=== PATIENT | male | born 1955 | race Hispanic/Latino ===

== ENCOUNTER 2018-05-19 18:56 | Emergency (ER) | payer SELFPAY ==
[2018-05-19] MEDS ORDERED: CEFTRIAXONE/SWI 1gm 1 GM/10 ML SYR ONE (20:12)
[2018-05-19] MEDS ORDERED: AZITHROMYCIN 250 MG TAB ONE (20:12)
[2018-05-19 20:20] LABS: Absolute Lymphocytes (CBC) 0.7 K/uL (0.7-4.9); Absolute Monocytes 1.1 K/uL (0.1-1.3); Basophils % 0.3 % (0-1.3); Eosinophils % 0.1 % (0-4.4); Hematocrit 23.6 % (39.6-49.0); Lymphocytes % 6.1 % (15.3-44.8); MPV 8.8 fL (7.6-11.3); RBC Red Blood Cell Count 3.89 M/uL (4.33-5.43)
[2018-05-19 20:30] LABS: Potassium 5.2 mmol/L (3.5-5.1)
--- NOTE | 2018-05-19 20:38 | RAD REPORT ---
EXAM DESCRIPTION: RAD - Chest Single View - 05/19/2018 8:33 pm CLINICAL HISTORY: COUGH Chest pain. COMPARISON: Chest Pa And Lat (2 Views) dated 04/20/2017; Chest Single View dated 04/18/2017; Chest Sing le View dated 04/17/2017; Chest Single View dated 04/16/2017 FINDINGS: Portable technique limits examination quality. Moderate airspace opacity is present in the right upper lobe compatible with pneumonia. The heart is normal in size. No displaced fractures. IMPRESSION: Moderate right upper lobe pneumonia.
--- NOTE | 2018-05-19 21:14 | EDPHYS ---
Physician Documentation [facility] Name: Mc Willingham Age: 63 yrs Sex: Male : 1955 Arrival Date: 05/19/2018 Time: 18:57 Bed 28 Private MD: ED Physician Lito Hutchison HPI: 05/19 20:04 This 63 yrs old Male presents to ER via Ambulatory with complaints of Cough, ma2 Congestion, Back Pain. 20:04 Onset: The symptoms/episode began/occurred gradually, 3 day(s) ago. Severity of ma2 symptoms: At their worst the symptoms were mild, in the emergency department the symptoms are unchanged. Associated signs and symptoms: Pertinent positives: rhinorrhea, Pertinent negatives: fever, rhinorrhea. The patient has experienced similar episodes in the past. Historical: - Allergies: 19:09 No Known Allergies; jd3 - Home Meds: 19:09 Humalog Pen Sub-Q [Active]; insulin glargine subcutaneous Sub-Q [Active]; gabapentin jd3 300 mg oral cap 1 cap [Active]; metformin 1,000 mg Oral tab 1 tab 2 times per day [Active]; oxybutynin chloride 5 mg Oral tr24 1 tab twice a day [Active]; 20:15 insulin unknown amount/brand [Active]; mg2 - PMHx: 19:09 Diabetes - IDDM; Hypertension; jd3 - PSHx: 19:09 left elbow; jd3 - Immunization history:: Adult Immunizations unknown. - Social history:: Smoking status: Patient/guardian denies using tobacco, but has a distant history of tobacco abuse, Patient/guardian denies using alcohol, street drugs, The patient lives with family. - Ebola Screening: : Patient negative for fever greater than or equal to 101.5 degrees Fahrenheit, and additional compatible Ebola Virus Disease symptoms. - Family history:: not pertinent. ROS: 20:04 Constitutional: Negative for fever, chills, and weight loss. ma2 20:04 Respiratory: Positive for cough, Negative for dyspnea on exertion, orthopnea, pleurisy, sputum production. 20:04 All other systems are negative. Exam: 20:04 Constitutional: This is a well developed, well nourished patient who is awake, alert, ma2 and in no acute distress. Chest/axilla: Normal chest wall appearance and motion. Nontender with no deformity. No lesions are appreciated. Cardiovascular: Regular rate and rhythm with a normal S1 and S2. No gallops, murmurs, or rubs. Normal PMI, no JVD. No pulse deficits. Respiratory: Lungs have equal breath sounds bilaterally, clear to auscultation and percussion. No rales, rhonchi or wheezes noted. No increased work of breathing, no retractions or nasal flaring. Abdomen/GI: Soft, non-tender, with normal bowel sounds. No distension or tympany. No guarding or rebound. No evidence of tenderness throughout. Back: No spinal tenderness. No costovertebral tenderness. Full range of motion. Skin: Warm, dry with normal turgor. Normal color with no rashes, no lesions, and no evidence of cellulitis. MS/ Extremity: Pulses equal, no cyanosis. Neurovascular intact. Full, normal range of motion. Neuro: Awake and alert, GCS 15, oriented to person, place, time, and situation. Cranial nerves II-XII grossly intact. Motor strength 5/5 in all extremities. Sensory grossly intact. Cerebellar exam normal. Normal gait. Vital Signs: 19:09 BP 148 / 74; Pulse 89; Resp 16 S; Temp 99.2(TE); Pulse Ox 98% on R/A; Weight 95.25 kg jd3 (R); Height 5 ft. 7 in. (170.18 cm) (R); Pain 0/10; 21:32 BP 133 / 83; Pulse 88; Resp 18; Temp 99.5; Pulse Ox 95% on R/A; Pain 0/10; mg2 19:09 Body Mass Index 32.89 (95.25 kg, 170.18 cm) jd3 MDM: 19:30 Patient medically screened. ma2 20:04 Differential Diagnosis: Bronchitis Influenza Upper Respiratory Infection Sinusitis. ma2 21:13 Data reviewed: vital signs, nurses notes. Counseling: I had a detailed discussion with ma2 the patient and/or guardian regarding: the historical points, exam findings, and any diagnostic results supporting the discharge/admit diagnosis, the presence of at least one elevated blood pressure reading (>120/80) during this emergency department visit. Response to treatment: the patient's symptoms have markedly improved after treatment. 05/19 19:57 Order name: Basic Metabolic Panel; Complete Time: 20:34 [facility] 05/19 19:57 Order name: CBC with Diff wv2 05/19 19:57 Order name: XRAY Chest (1 view); Complete Time: 21:13 wv2 05/19 20:05 Order name: Influenza Screen (a \T\ B); Complete Time: 21:13 ma2 Administered Medications: 20:16 Drug: AZITHromycin 500 mg Route: PO; mg2 20:59 Follow up: Response: No adverse reaction; Marked relief of symptoms mg2 20:17 Drug: Rocephin 1 grams Route: IV; Rate: calculated rate; Site: left antecubital; mg2 20:59 Follow up: Response: No adverse reaction; IV Status: Completed infusion mg2 Disposition: 05/19/18 21:13 Discharged to Home. Impression: Bronchopneumonia, unspecified organism. - Condition is Stable. - Discharge Instructions: Community-Acquired Pneumonia, Adult, [id number]. - Prescriptions for Lasix 20 mg Oral Tablet - take 1 tablet by ORAL route once daily; 20 tablet. Zithromax Z- Dequan 250 mg Oral Tablet - take 1 tablet by ORAL route as directed for 5 days Day 1 - take two (2) tablets one time. Day 2, 3, 4 , 5 take one (1) tablet once daily.; 6 tablet. - Medication Reconciliation Form, Thank You Letter, Antibiotic Education, Prescription Opioid Use form. - Follow up: Private Physician; When: Tomorrow; Reason: Continuance of care. Signatures: [facility] Lolita Muñoz FNP-C [employer]-Alvin Pierce RN RN jd3 Lito Hutchison MD MD ma2 Neel Rock RN RN mg2 Corrections: (The following items were deleted from the chart) 21:41 21:13 05/19/2018 21:13 Discharged to Home. Impression: Bronchopneumonia, unspecified mg2 organism. Condition is Stable. Prescriptions for Lasix 20 mg Oral Tablet - take 1 tablet by ORAL route once daily; 20 tablet, Zithromax Z-Dequan 250 mg Oral Tablet - take 1 tablet by ORAL route as directed for 5 days Day 1 - take two (2) tablets one time. Day 2, 3, 4 , 5 take one (1) tablet once daily.; 6 tablet. and Forms are Medication Reconciliation Form, Thank You Letter, Antibiotic Education, Prescription Opioid Use. Follow up: Private Physician; When: Tomorrow; Reason: Continuance of care. ma2
--- NOTE | 2018-05-19 21:14 | ER ---
Nurse's Notes [facility] Name: Mc Willingham Age: 63 yrs Sex: Male : 1955 Arrival Date: 05/19/2018 Time: 18:57 Bed 28 Private MD: Diagnosis: Bronchopneumonia, unspecified organism Presentation: 05/19 19:04 Presenting complaint: Child states: "We are pretty sure he has pneumonia. coughing and jd3 labored breathing.". Transition of care: patient was not received from another setting of care. Onset of symptoms was May 19, 2018. Risk Assessment: Do you want to hurt yourself or someone else? Patient reports no desire to harm self or others. Initial Sepsis Screen: Does the patient meet any 2 criteria? No. Patient's initial sepsis screen is negative. Does the patient have a suspected source of infection? No. Patient's initial sepsis screen is negative. Care prior to arrival: None. 19:04 Method Of Arrival: Ambulatory jd3 19:04 Acuity: POPPY 3 jd3 Historical: - Allergies: 19:09 No Known Allergies; jd3 - Home Meds: 19:09 Humalog Pen Sub-Q [Active]; insulin glargine subcutaneous Sub-Q [Active]; gabapentin jd3 300 mg oral cap 1 cap [Active]; metformin 1,000 mg Oral tab 1 tab 2 times per day [Active]; oxybutynin chloride 5 mg Oral tr24 1 tab twice a day [Active]; 20:15 insulin unknown amount/brand [Active]; mg2 - PMHx: 19:09 Diabetes - IDDM; Hypertension; jd3 - PSHx: 19:09 left elbow; jd3 - Immunization history:: Adult Immunizations unknown. - Social history:: Smoking status: Patient/guardian denies using tobacco, but has a distant history of tobacco abuse, Patient/guardian denies using alcohol, street drugs, The patient lives with family. - Ebola Screening: : Patient negative for fever greater than or equal to 101.5 degrees Fahrenheit, and additional compatible Ebola Virus Disease symptoms. - Family history:: not pertinent. Screenin:14 Abuse screen: Denies threats or abuse. Denies injuries from another. Nutritional mg2 screening: No deficits noted. Tuberculosis screening: No symptoms or risk factors identified. Fall Risk IV access (20 points). Assessment: 20:13 General: Appears in no apparent distress. comfortable, Behavior is calm, cooperative. mg2 Pain: Complains of pain in back Pain does not radiate. Pain currently is 2 out of 10 on a pain scale. Quality of pain is described as aching. Neuro: Level of Consciousness is awake, alert, obeys commands, Oriented to person, place, time, situation. Cardiovascular: Capillary refill < 3 seconds Patient's skin is warm and dry. Respiratory: Airway is patent Respiratory effort is even, unlabored, Respiratory pattern is regular, symmetrical, Breath sounds are clear bilaterally. in right upper lobe, left upper lobe, right middle lobe, left lower lobe and right lower lobe. Respiratory: Reports shortness of breath cough that is. GI: No signs and/or symptoms were reported involving the gastrointestinal system. : No signs and/or symptoms were reported regarding the genitourinary system. EENT: No signs and/or symptoms were reported regarding the EENT system. Derm: Skin is intact, is healthy with good turgor, Skin is pink, warm \\T\\ dry. normal. Musculoskeletal: Circulation, motion, and sensation intact. Capillary refill < 3 seconds. Vital Signs: 19:09 BP 148 / 74; Pulse 89; Resp 16 S; Temp 99.2(TE); Pulse Ox 98% on R/A; Weight 95.25 kg jd3 (R); Height 5 ft. 7 in. (170.18 cm) (R); Pain 0/10; 21:32 BP 133 / 83; Pulse 88; Resp 18; Temp 99.5; Pulse Ox 95% on R/A; Pain 0/10; mg2 19:09 Body Mass Index 32.89 (95.25 kg, 170.18 cm) jd3 ED Course: 18:57 Patient arrived in ED. as 19:05 Triage completed. jd3 19:09 Arm band placed on. jd3 19:30 Lito Hutchison MD is Attending Physician. ma2 19:58 Neel Rock, ALISSON is Primary Nurse. mg2 20:14 No provider procedures requiring assistance completed. Inserted saline lock: 20 gauge mg2 in left antecubital area, using aseptic technique. Blood collected. 20:16 Patient has correct armband on for positive identification. mg2 20:34 XRAY Chest (1 view) In Process Unspecified. EDMS 21:41 IV discontinued, intact, bleeding controlled, No redness/swelling at site. Pressure mg2 dressing applied. Administered Medications: 20:16 Drug: AZITHromycin 500 mg Route: PO; mg2 20:59 Follow up: Response: No adverse reaction; Marked relief of symptoms mg2 20:17 Drug: Rocephin 1 grams Route: IV; Rate: calculated rate; Site: left antecubital; mg2 20:59 Follow up: Response: No adverse reaction; IV Status: Completed infusion mg2 Outcome: 21:13 Discharge ordered by . juan j 21:40 Discharged to home ambulatory, with family. mg2 21:40 Condition: good 21:40 Discharge instructions given to patient, family, Instructed on discharge instructions, follow up and referral plans. medication usage, Demonstrated understanding of instructions, follow-up care, medications, Prescriptions given X 2. 21:41 Patient left the ED. mg2 Signatures: Dispatcher [employer] EDMS Yamilex Carr Jonathon, RN RN Lito Paredes MD MD ma2 Gardose, Michele, RN RN mg2
[2018-05-19 22:08] VITALS: BP 133/83; TEMP 99.5; O2SAT 95
[2018-05-19 22:12] LABS: Anisocytosis 2+; Blood Morphology Comment NOTED (NOT SEEN); Hypochromasia 1+; Platelet Estimate DECR; Poikilocytosis 1+; Polychromasia 1+; Urine White Blood Cell Casts OK
== END 2018-05-19 21:41 | disposition home or self-care (01) ==
LOC: ER 18:56
DX: J18.0 Bronchopneumonia, unspecified organism (principal); E11.9 Type 2 diabetes mellitus without complications; I10 Essential (primary) hypertension; Z79.4 Long term (current) use of insulin; Z87.891 Personal history of nicotine dependence
CPT/HCPCS: 36415; 71045; 80048; 85025; 87804; 96365; 99284; J0696

== ENCOUNTER 2020-11-09 15:56 | Inpatient (IN) | payer SELFPAY ==
[2020-11-09 16:58] LABS: Protime INR 1.12
--- NOTE | 2020-11-09 17:16 | RAD REPORT ---
EXAM DESCRIPTION: RAD - Chest Single View - 11/09/2020 5:08 pm CLINICAL HISTORY: syncope Chest pain. COMPARISON: Chest Single View dated 05/19/2018; Chest Pa And Lat (2 Views) dated 04/20/2017; Chest Sin gle View dated 04/18/2017; Chest Single View dated 04/17/2017 FINDINGS: Portable technique limits examination quality. Mild bilateral interstitial lung opacities are present suggesting viral infection/ bronchitis. The he art is normal in size. No displaced fractures.
[2020-11-09 17:18] LABS: ALT/SGPT 21 U/L (12-78); AST/SGOT 14 U/L (15-37); Albumin 2.7 g/dL (3.4-5.0); Alkaline Phosphatase 91 U/L (45-117); BUN Blood Urea Nitrogen 15 mg/dL (7-18); Bicarbonate 21 mmol/L (21-32); Bilirubin Direct 0.1 mg/dL (0-0.2); Bilirubin Total 0.3 mg/dL (0.2-1.0); Glucose Level 126 mg/dL (74-106); Magnesium 2.8 mg/dL (1.8-2.4); NT PRO-BNP 924 pg/mL (<125); Potassium 4.3 mmol/L (3.5-5.1); Protein, Total 7.1 g/dL (6.4-8.2); Sodium Level 136 mmol/L (136-145); Troponin (Emerg Dept Use Only) < 0.02 ng/mL (0.0-0.045)
--- NOTE | 2020-11-09 20:04 | RAD REPORT ---
EXAM DESCRIPTION: CT - Head Brain Wo Cont - 11/09/2020 7:56 pm CLINICAL HISTORY: SYNCOPE Headache, drowsiness COMPARISON: No comparisons TECHNIQUE: All CT scans are performed using dose optimization technique as appropriate and may inclu de automated exposure control or mA/KV adjustment according to patient size. FINDINGS: No intracranial hemorrhage, hydrocephalus or extra-axial fluid collection.Mild generalized brain atrophy is present.No areas of brain edema or evidence of midline shift. The paranasal sinuses are clear. The calvarium is intact. IMPRESSION: No acute intracranial abnormality.
--- NOTE | 2020-11-09 20:07 | RAD REPORT ---
EXAM DESCRIPTION: CT - Chest For Pe Angio - 11/09/2020 7:57 pm CLINICAL HISTORY: Chest pain. syncope COMPARISON: Thorax Wo Con dated 04/20/2017 TECHNIQUE: CT angiogram of the pulmonary arteries was performed with MIP. All CT scans are performed using dose optimization technique as appropriate and may include automated exposure control or mA/KV adjustment according to patient size. FINDINGS: No evidence of pulmonary thromboembolism. No acute aortic finding demonstrated. Mild peripherally located ground-glass opacities are present in both lungs. No significant pericardial or pleural fluid. No concerning bony finding. IMPRESSION: No evidence of pulmonary thromboembolism. Mild peripherally located ground-glass lung opacities are present. Suggest correlation for possible C OVID-19 infection.
--- NOTE | 2020-11-09 21:11 | ER ---
Nurse's Notes [facility] Name: Mc Willingham Age: 65 yrs Sex: Male : 1955 Arrival Date: 11/09/2020 Time: 16:28 Bed 18 Private MD: Diagnosis: Syncope;Coronavirus Presentation: 11/09 17:00 Chief complaint: Patient states: c/o having multiple near syncope episodes for weeks. kh1 states was walking in [place] when he experienced another near syncopal episode. was brought in by EMS. denies cp denies sob at this time. aox3 resp even and unlabored. 17:00 Method Of Arrival: EMS: [facility] 17:00 Coronavirus screen: Client denies travel out of the [place] in the last 14 days. Ebola [facility] Screen: No symptoms or risks identified at this time. Initial Sepsis Screen: Does the patient meet any 2 criteria? No. Patient's initial sepsis screen is negative. Risk Assessment: Do you want to hurt yourself or someone else? Patient reports no desire to harm self or others. Onset of symptoms is unknown. 17:00 Acuity: POPPY 2 [facility] 17:33 Initial Sepsis Screen: Does the patient have a suspected source of infection? No. kh1 Patient's initial sepsis screen is negative. Triage Assessment: 17:29 General: Appears in no apparent distress. Behavior is calm, cooperative. [facility] - Immunization history:: Adult Immunizations up to date, . - Social history:: Smoking status: Patient denies any tobacco usage or history of. - Family history:: not pertinent. - Code Status:: Full code. Screenin:31 Abuse screen: Denies threats or abuse. Nutritional screening: No deficits noted. [facility] Tuberculosis screening: No symptoms or risk factors identified. Fall Risk Gait- Weak (10 pts.). Assessment: 17:31 Visitor restriction implemented due to in-person visitations may lead to the [facility] transmission of an infectious agent. Restricted visitation is valid for not more than 5 days unless renewed by the attending provider. Visitor restrictions were implemented on: November 09, 2020. Pain: Denies pain. 23:54 Visitor restriction implemented due to in-person visitations may lead to the [facility] transmission of an infectious agent. Restricted visitation is valid for not more than 5 days unless renewed by the attending provider. Reassessment: Patient and/or family updated on plan of care and expected duration. Pain level reassessed. Patient is alert, oriented x 3, equal unlabored respirations, skin warm/dry/pink. Patient denies pain at this time. Patient states feeling better. General: Appears in no apparent distress. comfortable, well developed, Behavior is calm, cooperative, appropriate for age, Denies fever, chills. Neuro: No deficits noted. Cardiovascular: Reports syncope. Respiratory: No deficits noted. GI: No deficits noted. : No deficits noted. EENT: No deficits noted. Derm: No deficits noted. Musculoskeletal: Reports Denies. Vital Signs: 17:00 BP 110 / 69; Pulse 89; Resp 20; Temp 97.9; Pulse Ox 98% on R/A; kh1 17:00 BP 110 / 69; Pulse 86; Resp 20; Temp 97.9; Pulse Ox 98% on R/A; kh1 17:34 BP 102 / 61; Pulse 72; Resp 16; Pulse Ox 99% on R/A; kh1 20:11 BP 146 / 68 Supine; Pulse 78; Resp 18; Temp 98.8; Pulse Ox 100% on R/A; Pain 0/10; kc4 20:11 BP 133 / 77 Sitting; Pulse 78; Resp 16; Pulse Ox 100% on R/A; kc4 20:11 BP 133 / 67 Standing; Pulse 72; Resp 18; Pulse Ox 100% on R/A; Pain 0/10; kc4 23:03 BP 168 / 80; Pulse 80; Resp 20; Temp 98.8; Pulse Ox 98% on R/A; Pain 0/10; kc4 Vitals: 17:31 Cardiac Rhythm Assessment Regular Sinus rhythm. 1 [place] Coma Score: 23:03 Eye Response: spontaneous(4). Verbal Response: oriented(5). Motor Response: obeys kc4 commands(6). Total: 15. ED Course: 16:28 Patient arrived in ED. [facility] 16:28 Fredis Garcia PA is PHCP. bin 16:28 Mihai Lyons MD is Attending Physician. [facility] 16:52 Obi Morin RN is Primary Nurse. [facility] 17:00 Arm band placed on right wrist. [facility] 17:08 XRAY Chest (1 view) In Process Unspecified. EDMS 17:29 Triage completed. 1 17:31 No apparent distress. kh1 17:31 clinical research monitor on. Pulse ox on. NIBP on. kh1 17:31 Inserted saline lock: 18 gauge in right forearm, using aseptic technique. Blood 1 collected. 17:33 Patient has correct armband on for positive identification. Fall risk band placed. Bed 1 in low position. Call light in reach. Side rails up X 1. 17:33 No provider procedures requiring assistance completed. 1 17:34 Claudia Bray is Primary Nurse. 1 17:35 CBC with Diff Sent. 1 19:57 CT Head Brain wo Cont In Process Unspecified. EDMS 19:57 CT Chest For PE Angio In Process Unspecified. EDMS 22:47 Hari Day MD is Hospitalizing Provider. [facility] 23:33 Type And Screen Sent. kc4 Administered Medications: No medications were administered Point of Care Testing: Guaiac: 22:40 Stool Guaiac: Negative; Stool Hemoccult Control: Pass; bb Outcome: 21:11 Discharge ordered by . [facility] 22:47 Decision to Hospitalize by Provider. [facility] 11/10 22:36 Patient left the ED. jb4 Signatures: Dispatcher [employer] EDMS Mihai Lyons MD MD cha Mickail, Joel, PA PA [facility] Shakira Suarez, RN RN Phil Valerio, RN RN jb4 Claudia Bray 1 Obi Morin, RN RN 5 Doris May kc4 Corrections: (The following items were deleted from the chart) 11/09 17:29 17:29 PMHx: Diabetes - IDDM; 17:29 17:29 PMHx: Hypertension; [facility] 18:21 17:35 CORONAVIRUS+MR.LAB.RABIAZ drawn and sent. [facility] EDID
--- NOTE | 2020-11-09 21:12 | EDPHYS ---
Physician Documentation [facility] Name: Mc Willingham Age: 65 yrs Sex: Male : 1955 Arrival Date: 11/09/2020 Time: 16:28 Bed 18 Private MD: ED Physician Mihai Lyons HPI: 11/09 21:08 This 65 yrs old Male presents to ER via EMS with complaints of near syncope. jmm 21:08 The patient has experienced near-syncope. Onset: The symptoms/episode began/occurred jmm acutely, just prior to arrival. Duration: The patient has had multiple episodes. This is a 65-year-old male that presents to the emergency department with complaints of multiple episodes of near syncope over the past month. Patient denies chest pain or shortness of breath. Patient visited with some friends whom he had seen in over a month and while at [facility] nearly syncopized. EMS was called. - Immunization history:: Adult Immunizations up to date, . - Social history:: Smoking status: Patient denies any tobacco usage or history of. - Family history:: not pertinent. - Code Status:: Full code. ROS: 21:08 Constitutional: Negative for fever, chills, and weight loss, Cardiovascular: Negative jmm for chest pain, palpitations, and edema, Respiratory: Negative for shortness of breath, cough, wheezing, and pleuritic chest pain. 21:08 Neuro: Positive for syncope, near syncope. 21:08 All other systems are negative. Exam: 21:08 Constitutional: This is a well developed, well nourished patient who is awake, alert, jmm and in no acute distress. Head/Face: atraumatic. Eyes: EOMI, no conjunctival erythema appreciated ENT: Moist Mucus Membranes Neck: Trachea midline, Supple Chest/axilla: Normal chest wall appearance and motion. Cardiovascular: Regular rate and rhythm. No edema appreciated Respiratory: Normal respirations, no respiratory distress appreciated Abdomen/GI: Non distended, soft Back: Normal ROM Skin: General appearance color normal MS/ Extremity: Moves all extremities, no obvious deformities appreciated, no edema noted to the lower extremities Neuro: Awake and alert, normal gait Psych: Behavior is normal, Mood is normal, Patient is cooperative and pleasant Vital Signs: 17:00 BP 110 / 69; Pulse 89; Resp 20; Temp 97.9; Pulse Ox 98% on R/A; kh1 17:00 BP 110 / 69; Pulse 86; Resp 20; Temp 97.9; Pulse Ox 98% on R/A; kh1 17:34 BP 102 / 61; Pulse 72; Resp 16; Pulse Ox 99% on R/A; kh1 20:11 BP 146 / 68 Supine; Pulse 78; Resp 18; Temp 98.8; Pulse Ox 100% on R/A; Pain 0/10; kc4 20:11 BP 133 / 77 Sitting; Pulse 78; Resp 16; Pulse Ox 100% on R/A; kc4 20:11 BP 133 / 67 Standing; Pulse 72; Resp 18; Pulse Ox 100% on R/A; Pain 0/10; kc4 23:03 BP 168 / 80; Pulse 80; Resp 20; Temp 98.8; Pulse Ox 98% on R/A; Pain 0/10; kc4 [place] Coma Score: 23:03 Eye Response: spontaneous(4). Verbal Response: oriented(5). Motor Response: obeys kc4 commands(6). Total: 15. MDM: 16:33 Patient medically screened. [facility] 21:09 Data reviewed: vital signs, nurses notes. Counseling: I had a detailed discussion with [facility] the patient and/or guardian regarding: the historical points, exam findings, and any diagnostic results supporting the discharge/admit diagnosis, lab results, radiology results, the need for outpatient follow up, to return to the emergency department if symptoms worsen or persist or if there are any questions or concerns that arise at home. ED course: Based on [place] syncope rules patient is low risk. Patient is advised to follow-up PCP and otherwise given strict return precautions. Patient understood and agrees plan of care.. 22:39 ED course: Guaiac is negative.. [facility] 11/09 16:32 Order name: Basic Metabolic Panel; Complete Time: 17:19 [facility] 11/09 16:32 Order name: CBC with Diff; Complete Time: 22:27 [facility] 11/09 16:32 Order name: LFT's; Complete Time: 17:19 [facility] 11/09 16:32 Order name: Magnesium; Complete Time: 17:19 [facility] 11/09 16:32 Order name: NT PRO-BNP; Complete Time: 17:19 [facility] 11/09 16:32 Order name: PT-INR; Complete Time: 16:59 [facility] 11/09 16:32 Order name: Troponin (emerg Dept Use Only); Complete Time: 17:19 [facility] 11/09 20:03 Order name: SARS-COV-2 RT PCR; Complete Time: 20:10 [facility] 11/09 22:28 Order name: Type And Screen; Complete Time: 01:27 [facility] 11/10 02:43 Order name: ABO/RH no charge EDMS 11/10 04:04 Order name: CBC with Automated Diff EDMS 11/10 04:57 Order name: Comprehensive Metabolic Panel EDMS 11/10 04:57 Order name: Troponin I EDMS 11/10 04:57 Order name: Lipid Profile EDMS 11/10 04:57 Order name: T4 Free EDMS 11/10 04:57 Order name: Magnesium EDMS 11/10 04:57 Order name: Thyroid Stimulating Hormone EDMS 11/10 04:57 Order name: Transferrin Sat/Iron Binding EDMS 11/10 04:57 Order name: Ferritin EDMS 11/10 06:31 Order name: Hemoglobin A1c EDMS 11/10 11:34 Order name: Glucose, Ancillary Testing EDMS 11/10 11:42 Order name: Potassium EDMS 11/10 11:49 Order name: C-Reactive Protein EDMS 11/10 11:55 Order name: Troponin I EDMS 11/10 13:57 Order name: Osmolality, Urine EDMS 11/10 13:58 Order name: UR SODIUM EDMS 11/10 13:58 Order name: UR POTASSIUM EDMS 11/10 14:04 Order name: Ur Protein EDMS 11/10 16:13 Order name: Glucose, Ancillary Testing EDMS 11/09 16:32 Order name: XRAY Chest (1 view); Complete Time: 17:18 [facility] 11/09 16:32 Order name: EKG; Complete Time: 16:33 [facility] 11/09 16:32 Order name: Cardiac monitoring; Complete Time: 17:35 [facility] 11/09 16:32 Order name: EKG - Nurse/Tech; Complete Time: 17:35 [facility] 11/09 16:32 Order name: IV Saline Lock; Complete Time: 17:35 [facility] 11/09 16:32 Order name: Labs collected and sent; Complete Time: 17:35 [facility] 11/09 16:32 Order name: O2 Per Protocol [facility] 11/09 16:32 Order name: O2 Sat Monitoring [facility] 11/09 16:32 Order name: Orthostatic Blood Pressure [facility] 11/09 19:20 Order name: Orthostatic Blood Pressure; Complete Time: 22:46 [facility] 11/09 19:21 Order name: CT Head Brain wo Cont; Complete Time: 20:10 [facility] 11/09 19:21 Order name: CT Chest For PE Angio; Complete Time: 20:10 [facility] 11/10 08:30 Order name: US [facility] 11/10 10:13 Order name: MRI [facility] 11/10 10:15 Order name: MRI [facility] 11/10 10:24 Order name: MRI [facility] 11/10 22:29 Order name: Glucose, Ancillary Testing EDKS Administered Medications: No medications were administered Point of Care Testing: Guaiac: 22:40 Stool Guaiac: Negative; Stool Hemoccult Control: Pass; bb Disposition Summary: 11/09/20 22:47 Hospitalization Ordered Hospitalization Status: Observation [facility] Provider: Hari Day Condition: Stable(11/09/20 22:47) [facility] Problem: new [facility] Symptoms: have improved [facility] Bed/Room Type: Standard [facility] Location: Telemetry/MedSurg (observation)(11/10/20 20:56) Room Assignment: 420(11/10/20 20:56) Diagnosis - Syncope jm - Coronavirus [facility] Forms: - Medication Reconciliation Form [facility] - SBAR form [facility] Addendum: 11/13/2020 15:08 Co-signature as Attending Physician, Mihai Lyons MD I agree with the assessment and c mitchell plan of care. Signatures: Dispatcher [employer] Mihai Becerra MD MD cha Mickail, Joel, PA PA [facility] Lalita Braun, ALISSON RN Claudia Bray formerly [facility], 1928–1983 Corrections: (The following items were deleted from the chart) 11/09 17:29 17:29 PMHx: Diabetes - IDDM; 17:29 17:29 PMHx: Hypertension; [facility] 18:21 17:19 CORONAVIRUS+MR.LAB.BRZ ordered. [facility] 21:44 21:11 Home [facility] 21:44 21:11 Stable [facility] 21:44 21:11 Syncope Near [facility] 44 21:11 Coronavirus [facility] 23:47 22:47 Telemetry/MedSurg (observation) [facility] 23:47 22:47 [facility] 11/10 20:56 11/09 23:47 [facility] ER [facility] 11/10 20:56 11/09 23:47 [facility]- [facility]
[2020-11-09 22:23] LABS: Absolute Lymphocytes (CBC) 0.9 K/uL (0.7-4.9); Basophils % 0.3 % (0-1.3); Hematocrit 28.4 % (39.6-49.0); Lymphocytes % 23.7 % (15.3-44.8); MPV 8.1 fL (7.6-11.3); RBC Red Blood Cell Count 4.03 M/uL (4.33-5.43)
[2020-11-10] MEDS ORDERED: ACETAMINOPHEN 500 MG TAB PO PRN (00:32)
[2020-11-10] MEDS: NA CHLORIDE 0.9% 1,000 ML IV SCH ×2 (00:32→10:31)
[2020-11-10] MEDS ORDERED: ONDANSETRON 4 MG/2 ML VIAL IV PRN (00:32)
--- NOTE | 2020-11-10 01:06 | P.HP ---
Certification for Inpatient Patient admitted to: Observation With expected LOS: <2 Midnights Patient will require the following post-hospital care: None Practitioner: I am a practitioner with admitting privileges, knowledge of patient current condition, hospital course, and medical plan of care. Services: Services provided to patient in accordance with Admission requirements found in Title 42 Section 412.3 of the Code of Federal Regulations Patient History Date of Service: 11/10/20 Primary Care Provider: Chica Villalba Reason for admission: Syncope History of Present Illness: 65-year-old male with history of diabetes mellitus type 2, hypertension presents the emergency department for syncope. Patient reports he has had multiple episodes of near syncope, dizziness, lightheadedness over the course of the last 3 weeks. Patient denies losing conscious but has fallen on multiple occasions. Patient was evaluated in the emergency department labs were significant for white blood cell count 3.9 hemoglobin 9.0 platelet count 150 creatinine 1.4 GFR 51 glucose 126 magnesium 2.8 BNP 924 patient tested positive for Covid as well. Stool guaiac negative, patient denies any palpitations, chest pain in relation to his episodes of syncope/near syncope. Patient does report getting lightheaded and dizzy surrounding the time of near-syncope. Patient denies being aware of the anemia. CT head negative for any acute findings CT PE protocol no evidence of pulmonary embolism, mild peripherally loculated groundglass opacities are present suggest correlation for possible COVID-19 infection. Patient currently on room air without any complaint of shortness of breath. Will admit for further evaluation and management of syncope/near syncope. Allergies No Known Drug Allergies Allergy (Verified 12/16/15 21:33) Unknown No Known Allerg Allergy (Uncoded 09/17/16 02:40) Unknown Home Medications: Gabapentin [Gralise] 300 mg PO DAILY 12/16/15 Insulin Aspart Prot/Insuln Asp [Novolog Mix 70-30 Flexpen] 10 units SQ BID 12/16/15 Insulin Glargine,Hum.rec.anlog [Toujeo Solostar] 60 units SQ BEDTIME 12/16/15 Metformin HCl [Glucophage] 1,000 mg PO BID 12/16/15 Oxybutynin Chloride 5 mg PO DAILY 12/16/15 Albuterol Sulfate [Proair Hfa] 8.5 gm IH Q4H PRN #1 hfa.aer.ad 04/27/17 Amox/Clavulanate [Augmentin 875-125 Tab*] 875 mg PO BID #6 tab 04/27/17 Fluconazole 200 mg PO BID #30 tablet 04/27/17 - Past Medical/Surgical History Diabetic: Yes -: HTN -: DM -: overactive bladder -: I and D abscess near rectum Psychosocial/ Personal History: Lives at home with family - Family History Mother -: Hypertension, Diabetes Sister -: Hypertension, Diabetes - Social History Smoking Status: Never smoker Alcohol use: Yes CD- Drugs: No Caffeine use: Yes Place of Residence: Home Review of Systems 10-point ROS is otherwise unremarkable General: Weakness Cardiovascular: Light Headedness, As per HPI Physical Examination - Physical Exam General: Alert, In no apparent distress, Oriented x3 HEENT: Atraumatic, PERRLA, Mucous membr. moist/pink, EOMI, Sclerae nonicteric Neck: Supple, 2+ carotid pulse no bruit, No LAD, Without JVD or thyroid abnormality Respiratory: Clear to auscultation bilaterally, Normal air movement Cardiovascular: Regular rate/rhythm, Normal S1 S2 Gastrointestinal: Normal bowel sounds, No tenderness Musculoskeletal: No tenderness Integumentary: No rashes Neurological: Normal speech, Normal strength at 5/5 x4 extr, Normal tone, Normal affect Lymphatics: No axilla or inguinal lymphadenopathy - Studies Laboratory Data (last 24 hrs) 11/09/20 21:51: WBC 3.90 L, Hgb 9.0 L, Hct 28.4 L, Plt Count 150 L 11/09/20 16:35: PT 12.9 H, INR 1.12 11/09/20 16:35: Sodium 136, Potassium 4.3, BUN 15, Creatinine 1.40 H, Glucose 126 H, Magnesium 2.8 H, Total Bilirubin 0.3, AST 14 L, ALT 21, Alkaline Phosphatase 91 Assessment and Plan - Plan Assessment: Syncope/near syncope Microcytic anemia Acute kidney injury superimposed on CKD 2 Diabetes mellitus type 2 Hypertension COVID-19 positive Plan: Syncope/near syncope: Monitor on telemetry, trend troponins, CT head/CT PE protocol negative for any acute findings. Will order carotid ultrasound, echocardiogram. Patient also anemic with hemoglobin of 9, stool guaiac negative for GI bleed, could be related to anemia. Patient also admits to alcohol abuse drinking between 6 and 8 beers per day, will monitor for signs of withdrawal. Orthostatics negative in the ER will repeat in the morning. Microcytic anemia: LÓPEZ studies ordered, patient red blood cell, platelets also mildly depressed. May benefit from outpatient hematology follow-up. Acute kidney injury superimposed on CKD 2: Continue with IV fluids, consult nephrology as necessary for worsening renal function. Diabetes mellitus type 2: A [facility] Accu-Chek, sliding scale insulin therapy. Hypertension: Obtain and continue medications. COVID-19 positive: Patient asymptomatic at this time, without any shortness of breath or ox requirement. We will continue to monitor. DVT PPX: Lovenox Code status: Full Discharge Plan: Home Plan to discharge in: 24 Hours - Advance Directives Does patient have a Living Will: No Does patient have a Durable POA for Healthcare: No - Code Status/Comfort Care Code Status Assessed: Yes (Full code) Critical Care: No Time Spent Managing Pts Care (In Minutes): 55
[2020-11-10] MEDS ORDERED: BENZONATATE 100 MG CAP PO PRN (01:33)
[2020-11-10 03:54] LABS: Absolute Lymphocytes (CBC) 0.9 K/uL (0.7-4.9); Basophils % 0.3 % (0-1.3); Lymphocytes % 24.7 % (15.3-44.8); MPV 8.4 fL (7.6-11.3); RBC Red Blood Cell Count 4.14 M/uL (4.33-5.43)
[2020-11-10] MEDS ORDERED: NA CHLORIDE 0.9% 1,000 ML ONE (04:05)
[2020-11-10 04:53] LABS: ALT/SGPT 20 U/L (12-78); AST/SGOT 12 U/L (15-37); Albumin 2.5 g/dL (3.4-5.0); Alkaline Phosphatase 83 U/L (45-117); BUN Blood Urea Nitrogen 15 mg/dL (7-18); Bicarbonate 22 mmol/L (21-32); Bilirubin Total 0.4 mg/dL (0.2-1.0); Ferritin 14.7 ng/mL (26-388); Glucose Level 82 mg/dL (74-106); HDL Cholesterol 30 mg/dL (40-60); LDL Cholesterol, Calculated 42 (<130); Magnesium 2.5 mg/dL (1.8-2.4); Protein, Total 6.9 g/dL (6.4-8.2); Sodium Level 133 mmol/L (136-145); Transferrin 237 mg/dL (200-360); Troponin I < 0.02 ng/mL (0.0-0.045)
[2020-11-10 04:57] LABS: Potassium 5.7 mmol/L (3.5-5.1)
--- NOTE | 2020-11-10 07:21 | P.PN ---
Subjective Date of Service: 11/10/20 Primary Care Provider: Chica Villalba Chief Complaint: Syncope Subjective: No new changes (Reports feeling okay. States he has had progressively worsening/more frequent lightheadedness dizziness/near syncope when walking outside. Also states has been cooking less due to dizziness. No symptoms while here in the hospital.) Review of Systems 10-point ROS is otherwise unremarkable Physical Examination - Vital Signs Temperature: 98.9 F Blood Pressure: 158/68 Respirations: 18 Pulse Ox (%): 100 - Studies Laboratory Data (last 24 hrs) 11/09/20 21:51: WBC 3.90 L, Hgb 9.0 L, Hct 28.4 L, Plt Count 150 L 11/09/20 16:35: PT 12.9 H, INR 1.12 11/09/20 16:35: Sodium 136, Potassium 4.3, BUN 15, Creatinine 1.40 H, Glucose 126 H, Magnesium 2.8 H, Total Bilirubin 0.3, AST 14 L, ALT 21, Alkaline Phosphatase 91 Assessment & Plan Physician Review Additional Text: Physical exam GEN: Alert, oriented, NAD HEENT: Normal conjunctiva, sclera anicteric, EOMI CV: Regular rate and rhythm, no edema Pulm: Nonlabored respiration on room air ABD: Soft, nontender, nondistended MSK: No joint tenderness Integumentary: No rashes Neuro: Normal speech, normal affect, str 5/5 throughout, CN II -XII grossly intact Problem list Syncope/near syncope Microcytic anemia Acute kidney injury superimposed on CKD 2 Diabetes mellitus type 2 Hypertension COVID-19 positive Plan: Syncope/near syncope: Monitor on telemetry, echocardiogram ordered, rule out cardiac origin. Patient denies any palpitations Occurs with ambulation only. And more specifically states when walking outside. Initially stated he does not have any symptoms in his house, but later stated he was cooking less due to dizziness. May have some autonomic dysfunction. History of diabetes, daily alcohol use, and now COVID-19 positive Neurology consulted -we will obtain EEG, MRI/MRA of brain and neck Orthostatics negative in the ER on admission. Microcytic anemia: LÓPEZ studies ordered, patient red blood cell, platelets also mildly depressed. Acute kidney injury superimposed on CKD 2: Continue with IV fluids, consult nephrology Diabetes mellitus type 2: A [facility] Accu-Chek, sliding scale insulin therapy. A1c pending this morning Hypertension: Obtain and continue medications. COVID-19 positive: Patient asymptomatic at this time, without any shortness of breath or ox requirement. We will continue to monitor. Dispo: Anticipate DC home in 1-2 days Time Spent Managing Pts Care (In Minutes): 45
[2020-11-10] MEDS: INSULIN -REGULAR HUMAN 50 UNIT/0.5 ML ML SQ SCH ×4 (07:30→21:00)
--- NOTE | 2020-11-10 07:43 | EKG ---
Test Date: 2020-11-09 Test Time: 16:10:34 Litigation Manager: JUANI MEASUREMENT RESULTS: Intervals: Rate: 74 OR: 200 QRSD: 70 QT: 408 QTc: 452 [place]: P: 22 OR: 200 QRS: 7 T: -2 INTERPRETIVE STATEMENTS: Normal sinus rhythm Normal ECG Compared to ECG 04/13/2017 16:17:24 No significant changes Electronically Signed On 11-10-20 07:41:53 CDT by Jose M Munguia
--- NOTE | 2020-11-10 08:29 | RAD REPORT ---
EXAM DESCRIPTION: US - CP - 11/10/2020 1:54 am CLINICAL HISTORY: syncope, weakness Headache, drowsiness COMPARISON: No comparisons TECHNIQUE: Real-time sonographic evaluation of both carotid systems was performed. Doppler interroga tion was performed with waveform tracing bilaterally. FINDINGS: Normal high resistance waveforms are noted in both external carotid arteries. The common c arotid arteries and internal carotid arteries show normal low resistance waveforms. No significant plaque formation is seen. Peak systolic and end diastolic velocity values and the ICA/ CCA ratios are in the non-hemodynamically significant range. Antegrade flow seen in both vertebral arteries. IMPRESSION: No significant atherosclerotic changes noted. No evidence of a hemodynamically significant stenosis.
[2020-11-10] MEDS: THIAMINE HCL 100 MG TABLET PO SCH (09:00)
[2020-11-10] MEDS: VITAMIN D 1000 UNIT TAB PO SCH (09:00)
[2020-11-10] MEDS: ASCORBIC ACID 500 MG TABLET PO SCH ×4 (09:00→22:35)
[2020-11-10] MEDS: ZINC SULFATE 220 MG CAP PO SCH (09:00)
[2020-11-10] MEDS: ASPIRIN EC 81 MG TAB PO SCH (09:00)
[2020-11-10] MEDS: ENOXAPARIN 40 MG/0.4 ML SQ SCH (09:00)
--- NOTE | 2020-11-10 10:12 | RAD REPORT ---
EXAM DESCRIPTION: MRI - Brain W/Wo Cont - 11/10/2020 9:52 am CLINICAL HISTORY: progressive intermittent syncope, COVID Headache, drowsiness, CVA symptomology COMPARISON: MRA Head Wo Cont dated 11/10/2020; MRA Neck W/Wo Cont dated 11/10/2020 TECHNIQUE: Multi-sequence, multiplanar MR imaging of the brain was performed with contrast. FINDINGS: No intracranial hemorrhage, hydrocephalus, or extra-axial fluid collection.Mild periventri cular and deep white matter chronic microvascular ischemic changes. No edema or shift of midline stru ctures. No intracranial mass. DWI is negative for acute CVA. The midline structures are normally formed. Mastoid air cells and paranasal sinuses are clear. Post-contrast images show no abnormal enhancement to suggest tumor or infection. IMPRESSION: Negative for acute CVA or other acute intracranial abnormality. No pathologic post-contrast enhancement suspected.
--- NOTE | 2020-11-10 10:14 | RAD REPORT ---
EXAM DESCRIPTION: MRI - MRA Head Wo Cont - 11/10/2020 9:52 am CLINICAL HISTORY: progressive intermittent syncope, COVID CVA COMPARISON: Head Brain Wo Cont dated 11/09/2020 FINDINGS: 3D noncontrast [id number] MR angiography of the [place] was performed. No aneurysm, flow-limiting stenosis or vascular malformation is seen. Forward flow seen in codominant vertebral arteries. The visualized dural venous sinuses appear patent. IMPRESSION: No significant flow abnormality of the [place] is identified.
--- NOTE | 2020-11-10 10:24 | RAD REPORT ---
EXAM DESCRIPTION: MRI - MRA Neck W/Wo Cont - 11/10/2020 9:52 am CLINICAL HISTORY: as part of MRI stroke protocol Headache, drowsiness, CVA symptomology COMPARISON: No comparisons FINDINGS: Contrast enhance 2D [id number] MR angiography of the neck vessels was performed. A left aortic arch is noted. Both common carotid arteries and subclavian arteries are widely patent. Mild narrowing of the right carotid bulb is present less than 50% based on NASCET criteria. No significant internal carotid artery stenosis is evident. Antegrade flow is seen in codominant vert ebral arteries. IMPRESSION: No significant carotid stenosis is identified.
[2020-11-10] MEDS ORDERED: ASCORBIC ACID 500 MG TABLET ONE ×3 (10:51→19:13)
[2020-11-10] MEDS ORDERED: THIAMINE HCL 100 MG TABLET ONE (10:51)
[2020-11-10] MEDS ORDERED: ENOXAPARIN 40 MG/0.4 ML SQ ONE (10:52)
[2020-11-10] MEDS ORDERED: ZINC SULFATE 220 MG CAP ONE (10:52)
[2020-11-10] MEDS ORDERED: ASPIRIN EC 81 MG TAB PO ONE (10:52)
[2020-11-10] MEDS ORDERED: VITAMIN D 1000 UNIT TAB ONE (10:52)
--- NOTE | 2020-11-10 11:28 | ECHO ---
HEIGHT: 5 ft 7 in WEIGHT: 204 lb 0 oz DATE OF STUDY: 11/10/[address]: Kurt Armstrong NP 2-DIMENSIONAL: YES M.MODE: YES DOPPLER: YES COLOR FLOW: YES TDS: NO PORTABLE: NO DEFINITY: NO BUBBLE STUDY: NO DIAGNOSIS: SYNCOPE CARDIAC HISTORY: CATHERIZATION: NO SURGERY: NO PROSTHETIC VALVE: NO PACEMAKER: NO MEASUREMENTS (cm) DIASTOLIC (NORMALS) SYSTOLIC (NORMALS) IVSd 1.2 (0.6-1.2) LA Diam 3.8 (1.9-4.0) LVEF 58% LVIDd 5.5 (3.5-5.7) LVIDs 3.8 (2.0-3.5) %FS 31% LVPWd 1.2 (0.6-1.2) Ao Diam 2.6 (2.0-3.7) 2 DIMENSIONAL ASSESSMENT: RIGHT ATRIUM: NORMAL LEFT ATRIUM: NORMAL RIGHT VENTRICLE: NORMAL LEFT VENTRICLE: NORMAL TRICUSPID VALVE: NORMAL MITRAL VALVE: MITRAL ANNULAR CALCIFICATION PULMONIC VALVE: NORMAL AORTIC VALVE: NORMAL PERICARDIAL EFFUSION: NONE AORTIC ROOT: NORMAL LEFT VENTRICULAR WALL MOTION: NORMAL DOPPLER/COLOR FLOW: NORMAL COMMENTS: NORMAL LEFT VENTRICULAR SIZE AND FUNCTION. MITRAL ANNULAR CALCIFICATION. NO EFFUSION. TECHNOLOGIST: Walter ZARCO
[2020-11-10 14:03] LABS: UR PROTEIN 71.9 mg/dL (<11.9); Urine Protein/Creatinine Ratio 0.92 ratio (<0.15)
[2020-11-10] MEDS ORDERED: HYDRALAZINE HCL 20 MG/ML VIAL IV PRN (14:08)
[2020-11-10] MEDS: NIFEdipine 10 MG CAP PO SCH ×2 (15:00→22:59)
[2020-11-10] MEDS: carvediloL 12.5 MG TAB PO SCH (15:00)
[2020-11-10] MEDS ORDERED: NIFEdipine 10 MG CAP ONE ×2 (16:17→23:09)
[2020-11-10] MEDS: FLUDROCORTISONE 0.1 MG TAB PO SCH (17:00)
--- NOTE | 2020-11-10 22:29 | P.CNS ---
Date of Consult: 11/10/20 Reason for Consult: BEATRIZ Requesting Physician: Hari Day Primary Care Provider: Chica Villalba Chief Complaint: Syncope History of Present Illness: 65M w/ PMHx of poorly controlled DM2 w/ neuropathy, & Htn, who present with syncope and falls. He reports having 2 episodes of syncope, the most recent episode was 2 weeks ago, and both episodes happened when he was walking. He reports that on both occasions he felt he was about to faint. He has had history of falls. Orthostatic vitals was positive on hospital admission. He also is noted to have supine hypertension with a supine blood pressure as high as 200 systolic. He is noted to have a KI with serum creatinine 1.4 on admission. His baseline serum creatinine is 0.9-1.0 as of May 2018. His BNP is elevated at 924. He also tested positive for covid without any clear related symptoms. Head CT is negative. CT PE showed no evidence of pulmonary embolism. He is now being admitted for further evaluation and management. Allergies No Known Drug Allergies Allergy (Verified 12/16/15 21:33) Unknown No Known Allerg Allergy (Uncoded 09/17/16 02:40) Unknown Home Medications: Gabapentin [Gralise] 300 mg PO DAILY 12/16/15 Insulin Aspart Prot/Insuln Asp [Novolog Mix 70-30 Flexpen] 10 units SQ BID 12/16/15 Insulin Glargine,Hum.rec.anlog [Toujeo Solostar] 60 units SQ BEDTIME 12/16/15 Metformin HCl [Glucophage] 1,000 mg PO BID 12/16/15 Oxybutynin Chloride 5 mg PO DAILY 12/16/15 Albuterol Sulfate [Proair Hfa] 8.5 gm IH Q4H PRN #1 hfa.aer.ad 04/27/17 Amox/Clavulanate [Augmentin 875-125 Tab*] 875 mg PO BID #6 tab 04/27/17 Fluconazole 200 mg PO BID #30 tablet 04/27/17 - Past Medical/Surgical History Diabetic: Yes -: HTN -: DM -: overactive bladder -: I and D abscess near rectum Psychosocial/ Personal History: Lives at home with family - Family History Mother Medical History: Hypertension, Diabetes Sister Medical History: Hypertension, Diabetes - Social History Smoking Status: Former smoker Alcohol use: Yes CD- Drugs: No Caffeine use: Yes Place of Residence: Home Review of Systems General: Weakness Eyes: Unremarkable ENT: Unremarkable Respiratory: Unremarkable Cardiovascular: Light Headedness Gastrointestinal: Unremarkable Genitourinary: Unremarkable Musculoskeletal: Unremarkable Integumentary: Unremarkable Neurological: Weakness Physical Examination Temp Pulse Resp BP Pulse Ox 98.9 F 87 18 158/68 H 100 11/10/20 16:46 11/10/20 16:00 11/10/20 16:46 11/10/20 16:46 11/10/20 16:46 General: In no apparent distress HEENT: Atraumatic, Normocephalic Neck: Supple, JVD not distended Respiratory: Clear to auscultation bilaterally Cardiovascular: Normal S1 S2, No rubs, No murmurs Gastrointestinal: Soft and benign, Non-distended Musculoskeletal: No clubbing, No swelling Integumentary: No warmth Neurological: Normal speech, Normal tone Lymphatics: No axilla or inguinal lymphadenopathy Urinary: Other (no bladder distention) External genitalia: Deferred Rectal: Deferred Laboratory Data (last 24 hrs) 11/10/20 03:16: Sodium 133 L, Potassium 5.7 H*, BUN 15, Creatinine 1.35 H, Glucose 82, Magnesium 2.5 H, Total Bilirubin 0.4, AST 12 L, ALT 20, Alkaline Phosphatase 83, Troponin I < 0.02, Triglycerides 69, Cholesterol 86, HDL Cholesterol 30 L, Cholesterol/HDL Ratio 2.87 11/10/20 03:16: WBC 3.70 L, Hgb 9.2 L, Hct 29.0 L, Plt Count 155 Conclusions/Impression: # BEATRIZ likely 2/2 accelerated/supine Htn has mild proteinuria 0.9 g on random UPCR follow-up urinalysis received IV contrast upon CT PE on 11/09/2020. Monitor for contrast-induced nephropathy in the next 1-2 days. BNP elevated [place] by mouth fluid intake Monitor input and output, renal panel # Syncope likely secondary to orthostatic hypotension history of multiple falls accelerated hypertension usually occurs when he is in supine position He has supine hypertension w/ supine BP up to 200 mmHg Dc NS IV gtt Standing BP down to the low 100s He has autonomic neuropathy likely 2/2 previously uncontrolled DM2 F/u serum B12, RPR, HANNAH, AM cortisol, AM ACTH He has mild serum protein gap but no urine protein gap. Defer workup for plasma cell dyscrasia. May trial fludrocortisone low dose but he likely won't do well on this medication as he already has supine Htn at baseline As his orthostatic hypotension is likely to be permanent due to autonomic nerve involvement from uncontrolled diabetes, I think the better long-term strategy is for him to wear graduated compression stockings, thigh-high bilaterally, with ankle pressure at least 20-30 mmHg, to be worn during the daytime, and may be removed at bedtime. VALERY hose stockings wouldn't be enough. He also would need to be on liberal salt intake, as he does not have CHF currently, and when he is no longer on fludrocortisone. TTE on 11/10/20 is unremarkable Carotid ultrasound unremarkable Head/neck MRI and MRA unremarkable Continue manager medicare marketing # Htn Start Coreg 12.5 g by mouth twice a day Start nifedipine 30 g by mouth twice a day Hydralazine IV every 4 hours when necessary for SBP above 160 mmHg # HypoNa Mild, monitor No need to restrict by mouth fluid intake at this time # HyperK Improved Received IV fluids Monitor # Anemia w/ iron deficiency Hemoglobin 9.2 iron saturation is low at 7% start by mouth iron therapy via ferrous sulfate # Covid infection Asymptomatic Monitor # DM type II Management per primary team
[2020-11-11 02:21] LABS: Urine Appearance CLOUDY (Clear); Urine Bilirubin NEGATIVE (Negative); Urine Blood 2+ (Negative); Urine Color YELLOW (Yellow); Urine Glucose 3+ (Negative); Urine Protein 1+ (Negative); Urine Urobilinogen 0.2 mg/dL (0.2-1.0)
[2020-11-11 02:41] LABS: Urine Microscopic Reflex ORDER UMIC
[2020-11-11 02:56] LABS: Urine Bacteria <20 /HPF (NONE SEEN); Urine Mucus 1+ /HPF (NONE SEEN); Urine Yeast MANY (NONE SEEN)
[2020-11-11 04:39] LABS: Absolute Lymphocytes (CBC) 0.7 K/uL (0.7-4.9); Basophils % 0.3 % (0-1.3); Hematocrit 28.7 % (39.6-49.0); MPV 8.2 fL (7.6-11.3); RBC Red Blood Cell Count 4.13 M/uL (4.33-5.43)
[2020-11-11 06:27] LABS: Albumin 2.5 g/dL (3.4-5.0); Bilirubin Total 0.4 mg/dL (0.2-1.0); C-Reactive Protein 7.46 mg/L (<3.00); Magnesium 2.8 mg/dL (1.8-2.4); Phosphorus 4.2 mg/dL (2.5-4.9); Potassium 4.4 mmol/L (3.5-5.1); Protein, Total 6.6 g/dL (6.4-8.2)
[2020-11-11] MEDS ORDERED: FLUCONAZOLE 400 MG IVPB 400 MG/200 ML BAG IV SCH (06:30)
[2020-11-11] MEDS: carvediloL 12.5 MG TAB PO SCH ×2 (06:45→17:15)
[2020-11-11] MEDS: INSULIN -REGULAR HUMAN 50 UNIT/0.5 ML ML SQ SCH ×4 (07:30→20:47)
[2020-11-11] MEDS: ENOXAPARIN 40 MG/0.4 ML SQ SCH (09:00)
[2020-11-11] MEDS: NIFEdipine 10 MG CAP PO SCH (09:00)
[2020-11-11 09:54] LABS: Blood Morphology Comment NOTED (NOT SEEN); Platelet Estimate ADEQ; White Blood Cell Scan OK (OK)
[2020-11-11] MEDS: THIAMINE HCL 100 MG TABLET PO SCH (10:18)
[2020-11-11] MEDS: ASCORBIC ACID 500 MG TABLET PO SCH ×4 (10:19→20:47)
[2020-11-11] MEDS: FERROUS SULFATE 325 MG TAB PO SCH ×2 (10:19→20:47)
[2020-11-11] MEDS: ZINC SULFATE 220 MG CAP PO SCH (10:19)
[2020-11-11] MEDS: ASPIRIN EC 81 MG TAB PO SCH (10:19)
[2020-11-11] MEDS: VITAMIN D 1000 UNIT TAB PO SCH (10:19)
[2020-11-11] MEDS: FLUCONAZOLE 400 MG IVPB 400 MG/200 ML BAG IV SCH (10:20)
[2020-11-11] MEDS: FLUDROCORTISONE 0.1 MG TAB PO SCH (10:26)
[2020-11-11] MEDS: NA CHLORIDE 0.9% 1,000 ML IV SCH (16:00)
--- NOTE | 2020-11-11 17:09 | P.PN ---
Subjective Date of Service: 11/11/20 Primary Care Provider: Chica Villalba Chief Complaint: Syncope Subjective: No new changes (Feeling better yesterday, feeling better this morning, however he was still orthostatic, no longer hypertensive. Symptomatic and obtain orthostatic vital signs today) Review of Systems 10-point ROS is otherwise unremarkable Physical Examination - Vital Signs Temperature: 96.6 F Blood Pressure: 104/51 Pulse: 74 Respirations: 18 Pulse Ox (%): 99 Assessment & Plan Physician Review Additional Text: Physical exam GEN: Alert, oriented, NAD HEENT: Normal conjunctiva, sclera anicteric, EOMI CV: Regular rate and rhythm, no edema Pulm: Nonlabored respiration on room air ABD: Soft, nontender, nondistended Neuro: Normal speech, normal affect, str 5/5 throughout, CN II -XII grossly inta ct Problem list Syncope/near syncope Microcytic anemia Orthostatic hypotension/autonomic dysfunction, likely secondary to diabetes mellitus type 2 Acute kidney injury superimposed on CKD 2 Diabetes mellitus type 2 Hypertension COVID-19 positive Plan: Syncope/near syncope: Monitor on telemetry, echocardiogram ordered, ruled out cardiac origin. Patient denies any palpitations Occurs with ambulation only. suspect autonomic dysfunction. History of diabetes, daily alcohol use, and now COVID-19 positive Neurology consulted -neuro imaging negative Orthostatics positive yesterday and today resume IVF delmi started monitor BP He was noted to have supine hypertension yesterday, resolved today Microcytic anemia: LÓPEZ studies ordered, patient red blood cell, platelets also mildly depressed. Acute kidney injury superimposed on CKD 2: improving, Continue with IV fluids, consulted nephrology Diabetes mellitus type 2: A [facility] Accu-Chek, sliding scale insulin therapy. A1c pending this morning Hypertension: Obtain and continue medications. COVID-19 positive: Patient asymptomatic at this time, without any shortness of breath or oxygen requirement. We will continue to monitor. Dispo: Anticipate DC home in ~1 days Time Spent Managing Pts Care (In Minutes): 40
--- NOTE | 2020-11-11 17:34 | PN ---
Date of Progress Note: 11/11/2020 Chief Complaint: Acute kidney injury, nonoliguric History Of Present Illness: The patient has underlying chronic kidney stage 3 secondary to diabetes mellitus. The patient has diabetic nephropathy, neuropathy. The patient has history of long-term hy pertension and hypertensive heart and kidney disease. He came to the hospital after he was complaini ng of generalized weakness. He had 2 episodes of syncope and presyncope. Most recent episode of syn cope was 2 weeks ago. He had episode of syncope also prior to this admission. Serum creatinine level is elevated up to 1.4. Baseline creatinine level is 0.9. BNP was elevated. CT scan of the head was negative. The patient had a CT PE protocol to rule out ev idence of pulmonary emboli. Review of Systems: Denies chest pain, palpitation. Denies headache. Physical Examination: Lungs: Clear to auscultation bilaterally. Heart: S1, S2. Abdomen: Soft, benign. Extremities: Slight edema. Laboratory Data: Potassium 5.7, sodium 133, BUN 16, creatinine 1.35, glucose 82, magnesium 2.5. Impression And Plan: 1.Acute kidney injury, likely secondary to accelerated hypertension. The patient has mild proteinur ia 0.9 g on UPCR, follow up urinalysis to rule out active urinary sediment. 2.The patient received contrast for PE protocol CT scan. The patient has risk of contrast-induced n ephropathy. Monitor renal function over the next 2 days. 3.Syncope, secondary to orthostatic hypotension. The patient has accelerated hypertension. Continu e blood pressure. Adjust medication for adequate blood pressure control. 4.Diabetes mellitus with renal manifestation. The patient may be a candidate for JAXON inhibitor in t he future. Currently, proteinuria is not of severe degree, although there is diabetic nephropathy, a nd the patient was taken off JAXON inhibitor due to hyperkalemia and acute kidney injury. 5.Anemia with iron deficiency. Continue iron supplementation. 6.COVID pneumonia. Per primary team. MEHDI/RAFA Voice ID: [id number] Report ID: [id number]
[2020-11-11 22:52] LABS: RPR (Rapid Plasma Reagin) NON-REACT (NON-REACT)
[2020-11-12] MEDS: NA CHLORIDE 0.9% 1,000 ML IV SCH (03:58)
[2020-11-12] MEDS: carvediloL 12.5 MG TAB PO SCH (05:35)
[2020-11-12 06:18] LABS: Absolute Lymphocytes (CBC) 0.6 K/uL (0.7-4.9); Basophils % 0.3 % (0-1.3); Hematocrit 26.2 % (39.6-49.0); Lymphocytes % 19.8 % (15.3-44.8); RBC Red Blood Cell Count 3.71 M/uL (4.33-5.43)
[2020-11-12 06:34] LABS: Albumin 2.4 g/dL (3.4-5.0); Bilirubin Total 0.4 mg/dL (0.2-1.0); C-Reactive Protein 5.08 mg/L (<3.00); Magnesium 2.6 mg/dL (1.8-2.4); Potassium 4.4 mmol/L (3.5-5.1); Protein, Total 6.3 g/dL (6.4-8.2)
[2020-11-12] MEDS: INSULIN -REGULAR HUMAN 50 UNIT/0.5 ML ML SQ SCH ×2 (07:30→11:30)
[2020-11-12] MEDS ORDERED: SOD FERRIC GLUC COMPLX/SUCROSE 250 MG in NA CHLORIDE 0.9% 250 ML IV SCH (09:00)
[2020-11-12 10:46] VITALS: O2SAT 72
[2020-11-12] MEDS: ASPIRIN EC 81 MG TAB PO SCH (11:07)
[2020-11-12] MEDS: VITAMIN D 1000 UNIT TAB PO SCH (11:08)
[2020-11-12] MEDS: FERROUS SULFATE 325 MG TAB PO SCH (11:08)
[2020-11-12] MEDS: ZINC SULFATE 220 MG CAP PO SCH (11:09)
[2020-11-12] MEDS: THIAMINE HCL 100 MG TABLET PO SCH (11:09)
[2020-11-12] MEDS: ENOXAPARIN 40 MG/0.4 ML SQ SCH (11:10)
[2020-11-12] MEDS: ASCORBIC ACID 500 MG TABLET PO SCH ×2 (11:10→13:00)
[2020-11-12] MEDS: FLUCONAZOLE 400 MG IVPB 400 MG/200 ML BAG IV SCH (11:17)
[2020-11-12] MEDS: FLUDROCORTISONE 0.1 MG TAB PO SCH (11:17)
[2020-11-12 12:22] VITALS: BP 169/81; TEMP 98.5
--- NOTE | 2020-11-12 13:11 | P.DS ---
Admission Date: 11/10/20 Discharge Date: 11/13/20 Primary Care Provider: Chica Villalba Disposition: ROUTINE DISCHARGE Discharge Condition: GOOD Reason for Admission: Syncope Consultations: Neurology -Dr. Castillo Nephrology -Dr. Aguilera Procedures: CXR (11/09): Mild bilateral interstitial lung opacities are present suggesting viral infection/ bronchitis. The heart is normal in size. No displaced fractures. CTA chest (11/09): No evidence of pulmonary thromboembolism. Mild peripherally located ground-glass lung opacities are present. Suggest co rrelation for possible COVID-[address] head (11/09): IMPRESSION: No acute intracranial abnormality. MRI brain (11/10): FINDINGS: No intracranial hemorrhage, hydrocephalus, or extra-axial fluid collection.Mild periventricular and deep white matter chronic microvascular ischemic changes. No edema or shift of midline structures. No intracranial mass. DWI is negative for acute CVA. The midline structures are normally formed. Mastoid air cells and paranasal sinuses are clear. Post-contrast images show no abnormal enhancement to suggest tumor or infection. IMPRESSION: Negative for acute CVA or other acute intracranial abnormality. No pathologic post-contrast enhancement suspected. MRA brain (11/10): No aneurysm, flow-limiting stenosis or vascular malformation is seen. Forward flow seen in codominant vertebral arteries. The visualized dural venous sinuses appear patent. IMPRESSION: No significant flow abnormality of the [place] of Tiwari is identified. MRA neck (11/09): A left aortic arch is noted. Both common carotid arteries and subclavian arteries are widely patent. Mild narrowing of the right carotid bulb is present less than 50% based on NASCET criteria. No significant internal carotid artery stenosis is evident. Antegrade flow is seen in codominant vertebral arteries. IMPRESSION: No significant carotid stenosis is identified. Carotid ultrasound (11/10): IMPRESSION: No significant atherosclerotic changes noted. No evidence of a hemodynamically significant stenosis. Echocardiogram (11/10): Normal LVEF (50%), mitral annular calcification. No effusion Problem list Autonomic dysfunction / orthostatic hypotension secondary diabetes mellitus type 2 Chronic microcytic anemia, iron deficiency Acute kidney injury superimposed on CKD 2, resolved Diabetes mellitus type 2, non-insulin dependent Hypertension COVID-19 positive Brief History of Present Illness: 65-year-old male with history of diabetes mellitus type 2, hypertension presents the emergency department for syncope. Patient reports he has had multiple episodes of near syncope, dizziness, lightheadedness over the course of the last 3 weeks. Patient denies losing conscious but has fallen on multiple occasions. Patient was evaluated in the emergency department labs were significant for white blood cell count 3.9 hemoglobin 9.0 platelet count 150 creatinine 1.4 GFR 51 glucose 126 magnesium 2.8 BNP 924 patient tested positive for Covid as well. Stool guaiac negative, patient denies any palpitations, chest pain in relation to his episodes of syncope/near syncope. Patient does report getting lightheaded and dizzy surrounding the time of near-syncope. Patient denies being aware of the anemia. CT head negative for any acute findings CT PE protocol no evidence of pulmonary embolism, mild peripherally loculated groundglass opacities are present suggest correlation for possible COVID-19 infection. Patient currently on room air without any complaint of shortness of breath. Will admit for further evaluation and management of syncope/near syncope. Hospital Course: Patient was evaluated with CT head, MRI/MRA brain and neck, echocardiogram, which were all within normal limits. CT chest was notable for bilateral pulmonary opacities consistent with Covid 19 pneumonia. Patient was not having any pulmonary symptoms, he was saturating 99% on room air, without hypoxia with ambulation. He was found to have an BEATRIZ, which resolved with IV fluid hydration. Nephrology was consulted, and patient is to follow-up with them in a few weeks. He was noted to have significant orthostatic hypotension/autonomic dysfunction. The day after admission he was noted to have severe supine hypertension systolic 200. At that time his systolic blood pressure went down to 150 sitting, 120s standing. He was ambulated and his room for a few minutes, and recheck of his blood pressure revealed systolic blood pressure down to 109. At that time shantel castano reported no symptoms, no dizziness/lightheadedness. Patient was started on Procardia, Coreg and fludrocortisone. Neurology was consulted and agreed. It was felt his autonomic dysfunction was most likely related to his longstanding diabetes. Could potentially be exacerbated by his recent Covid infection, as that is seen with new finding in the last 3 weeks. He developed some slight hypotension, and the following morning his Procardia was held, and he was noted to again have positive orthostatic vitals, this time symptomatic. He had gradual improvement with the use of fludrocortisone, VALERY hose (graduated compression stockings were unavailable), and abdominal binder. He did not have any further severe supine hypertension even off the Procardia. Patient was also found to have microcytic anemia. Work-up revealed iron deficiency. He received 1 dose of IV iron prior to discharge, discharged with p.o. iron. He had slight downtrend in his hemoglobin, attributed to dilution with IV fluids. He had no evidence of bleeding. He is discharged home to continue with new prescriptions of carvedilol, fludrocortisone, and to use abdominal binder with graduated compression stockings (thigh-high bilaterally, with ankle pressure at least 2030 mmHg). To be worn during the daytime, and may be removed at bedtime. He was advised to check his blood pressure, both laying and standing every day, and to follow-up with his PCP in 3-5 days. Follow-up with neurology in 1 month Vital Signs/Physical Exam: Temp Pulse Resp BP Pulse Ox 98.5 F 67 20 169/81 H 99 11/12/20 12:00 11/12/20 12:00 11/12/20 12:00 11/12/20 12:00 11/12/20 12:00 General: Alert, In no apparent distress, Oriented x3 HEENT: EOMI, Sclerae nonicteric Neck: Supple, No LAD Respiratory: Clear to auscultation bilaterally, Normal air movement Cardiovascular: No edema, Regular rate/rhythm Gastrointestinal: Soft and benign, Non-distended, No tenderness Musculoskeletal: No erythema, No tenderness Integumentary: No rashes, No significant lesion Neurological: Normal speech, Normal strength at 5/5 x4 extr, Cranial nerves 3-12 intact, Normal affect Laboratory Data at Discharge: WBC 3.30 K/uL (4.3-10.9) L 11/12/20 05:37 Hgb 8.3 g/dL (13.6-17.9) L 11/12/20 05:37 Hct 26.2 % (39.6-49.0) L 11/12/20 05:37 Plt Count 145 K/uL (152-406) L 11/12/20 05:37 PT 12.9 SECONDS (9.5-12.5) H 11/09/20 16:35 INR 1.12 11/09/20 16:35 Sodium 143 mmol/L (136-145) 11/12/20 05:32 Potassium 4.4 mmol/L (3.5-5.1) 11/12/20 05:32 BUN 16 mg/dL (7-18) 11/12/20 05:32 Creatinine 0.92 mg/dL (0.55-1.3) 11/12/20 05:32 Glucose 98 mg/dL (74-106) 11/12/20 05:32 Phosphorus Cancelled 11/11/20 05:00 Magnesium 2.6 mg/dL (1.8-2.4) H 11/12/20 05:32 Total Bilirubin 0.4 mg/dL (0.2-1.0) 11/12/20 05:32 AST 12 U/L (15-37) L 11/12/20 05:32 ALT 15 U/L (12-78) 11/12/20 05:32 Alkaline Phosphatase 76 U/L (45-117) 11/12/20 05:32 Troponin I < 0.02 ng/mL (0.0-0.045) 11/10/20 11:08 Triglycerides 69 mg/dL (<150) 11/10/20 03:16 Cholesterol 86 mg/dL (<200) 11/10/20 03:16 HDL Cholesterol 30 mg/dL (40-60) L 11/10/20 03:16 Cholesterol/HDL Ratio 2.87 11/10/20 03:16 Home Medications: Carvedilol [Coreg] 12.5 mg PO BID #60 tablet 11/12/20 Empagliflozin [Jardiance] 25 mg PO DAILY 11/12/20 Ferrous Sulfate [Feosol] 325 mg PO BID #60 tab 11/12/20 Fludrocortisone [Florinef *] 0.1 mg PO DAILY #30 tab 11/12/20 Gabapentin 300 mg PO DAILY 11/12/20 Insulin Glargine,Hum.rec.anlog [Vernon Gooden] 60 units SQ DAILY 11/12/20 Metformin HCl 1,000 mg PO BID 11/12/20 Oxybutynin Chloride 5 mg PO BID 11/12/20 New Medications: Carvedilol [Coreg] 12.5 mg PO BID #60 tablet Ferrous Sulfate [Feosol] 325 mg PO BID #60 tab Fludrocortisone [Florinef *] 0.1 mg PO DAILY #30 tab Physician Discharge Instructions: You are found to have orthostatic hypotension. When you stand up your blood pressure drops and causes you to feel dizzy/lightheaded. This is suspected to be due to some autonomic dysfunction, most likely related to diabetes. Possibly exacerbated further by recent Covid infection. You are also found to have high blood pressure when you are lying flat. You are discharged home mild blood pressure medication (carvedilol), and you are discharged with a medication to help keep your blood pressure from getting too low (fludrocortisone). You are discharged with an abdominal binder and VALERY hose to wear to help prevent your blood pressure from getting too low when you stand up. Recommend graduated compression stockings 2030 mmHg instead of the VALERY hose. These would work better for you. Graduated compression stockings: thigh-high bilaterally, with ankle pressure at least 2030mmHg. To be worn during the daytime, and may be removed at bedtime. You are also found to have significant iron deficiency anemia. You received 1 dose of IV iron, and will need to take iron pills. You will need to follow-up with your PCP in the next 3-5 days. Check your blood pressure every day, around the same time. Check your blood pressure and heart rate when you are laying flat, and when you are standing. Please record the results and take with you to your PCP visit. You will likely need to have repeat iron studies in several weeks. Diet: Regular Activity: Fall precautions Followup: Unknown,U [Primary Care Provider] - Time spent managing pt's care (in minutes): 45
--- NOTE | 2020-11-20 07:48 | EEG ---
CHART: [id number] TEST ID#: [id number] DATE OF STUDY: 11/10/2020 THE EEG WAS RECORDED PORTBALE IN THE EMERGENCY ROOM ON A 17 CHANNEL MACHINE. ELECTRODES WERE APPLIED IN THE USUAL MANNER USING THE INTERNATIONAL 10-20 SYSTEM. THE WAKING BACKGROUND RHYTHM IN THIS RECORD CONSISTS OF WELL DEVELOPED AND WELL ORGANIZED WAVES OF 10 HZ., MAXIMAL IN THE POSTERIOR HEAD REGIONS WHICH ATTENUATE NORMALLY WITH EYE OPENING. LOW-VOLTAGE 18-22 HZ ACTIVITY IS EXPRESSED IN THE FRONTAL REGIONS. THERE ARE NO FOCAL OR LATERALIZING FEATURES. NO EPILEPTIFORM ACTIVITY APPEARS. SLEEP DID NOT OCCUR. HYPERVENTILATION WAS NOT PERFORMED. PHOTIC STIMULATION PRODUCED POOR DRIVING BILATERALLY. IMPRESSION: NORMAL EEG FOR THE AGE OF THE PATIENT IN [place].
== END 2020-11-12 14:45 | disposition home or self-care (01) | DRG 73 ==
LOC: ER 15:56 → ERHOLD 23:58 → OBSVTOIN 11-10 07:43 → 4TH 11-10 21:24
PROVIDERS: ADMIT Hospitalist; ATTEND Hospitalist
DX: G90.8 Other disorders of autonomic nervous system (principal); U07.1 COVID-19; J12.82 Pneumonia due to coronavirus disease 2019; N17.9 Acute kidney failure, unspecified; E87.1 Hypo-osmolality and hyponatremia; I95.1 Orthostatic hypotension; D50.9 Iron deficiency anemia, unspecified; I12.9 Hypertensive chronic kidney disease with stage 1 through stage 4 chronic kidney disease, or unspecified chronic kidney disease; E11.22 Type 2 diabetes mellitus with diabetic chronic kidney disease; N18.2 Chronic kidney disease, stage 2 (mild); E11.40 Type 2 diabetes mellitus with diabetic neuropathy, unspecified; E87.5 Hyperkalemia; E11.21 Type 2 diabetes mellitus with diabetic nephropathy; F10.10 Alcohol abuse, uncomplicated
CPT/HCPCS: 36415; 70450; 70544; 70549; 70553; 71045; 71275; 80048; 80053; 80061; 80076; 81003; 81015; 82024; 82533; 82570; 82607; 82728; 82947; 83036; 83540; 83735; 83880; 83935; 84100; 84132; 84145; 84156; 84300; 84439; 84443; 84466; 84484; 85025; 85610; 86038; 86140; 86592; 86850; 86900; 86901; 87086; 87088; 93005; 93306; 93880; 95816; 97116; 97161; 99284; A9577; G0378; J1450; J1650; J2916; J7030; J7050; Q9967; U0003

== ENCOUNTER 2021-10-10 16:44 | Inpatient (IN) | payer OTHER, SELFPAY ==
[2021-10-10 17:44] LABS: Absolute Lymphocytes (CBC) 0.5 K/uL (0.7-4.9); MCV 64.7 fL (80-100); MPV 7.2 fL (7.6-11.3); RBC Red Blood Cell Count 3.25 M/uL (4.33-5.43)
--- NOTE | 2021-10-10 17:45 | RAD REPORT ---
EXAM DESCRIPTION: RAD - Chest Single View - 10/10/2021 5:29 pm CLINICAL HISTORY: Chest pain COMPARISON: Portable 11/09/2020 TECHNIQUE: AP portable chest image was obtained 10/10/2021 5:29 pm . FINDINGS: Lung volumes are very low accentuating the baseline interstitial pattern. No peripheral ma ss or consolidation. No significant failure or volume overload. Heart and vasculature are normal. No measurable pleural effusion and no pneumothorax. No acute bony abnormality seen. No acute aortic find ings suspected. IMPRESSION: No acute cardiopulmonary process.
[2021-10-10 17:47] LABS: Protime INR 1.23
[2021-10-10 18:01] LABS: Albumin 2.2 g/dL (3.4-5.0); Bilirubin Direct 0.2 mg/dL (0-0.2); Bilirubin Total 0.4 mg/dL (0.2-1.0); Magnesium 2.6 mg/dL (1.8-2.4); Potassium 4.5 mmol/L (3.5-5.1); Protein, Total 6.4 g/dL (6.4-8.2); Troponin High Sensitivity 8.4 pg/mL (<58.9)
[2021-10-10 18:54] LABS: SARS-CoV-2 Antigen Rapid Res Negative (Negative)
--- NOTE | 2021-10-10 19:26 | RAD REPORT ---
EXAM DESCRIPTION: CT - Abdomen Pelvis Wo Contrast - 10/10/2021 6:40 pm CLINICAL HISTORY: abd distention COMPARISON: No comparisons TECHNIQUE: Axial [address] imaging of the abdomen and pelvis was performed without IV contrast. No IV contrast was given because of allergy, abnormal renal function, patient refusal or physician re quest. No oral contrast administered. All CT scans are performed using dose optimization technique as appropriate and may include automated exposure control or mA/KV adjustment according to patient size. FINDINGS: No suspicious findings in the lung bases. No cardiomegaly or pericardial effusion. Liver is abnormal. There is a grossly lobulated contour to the liver parenchyma. Liver is small in si ze. Evaluation is limited in the absence of contrast. No gross evidence for mass. Gallbladder is fill ed with multiple sub centimeter gallstones. No acute gallbladder process suspected. No biliary tree d ilatation. No pancreatic or splenic abnormality seen. No splenomegaly. No hydronephrosis or suspicious renal mass. No significant adrenal finding. Isodense renal masses an d pyelonephritis cannot be excluded in the absence of IV contrast. The urinary bladder is without sig nificant finding. No dilated bowel loops or bowel wall thickening. No appendicitis findings. No acute GI findings seen. No free air or pneumatosis. Moderate volume of ascites is present. No mass or bulky lymphadenopathy. Ascites filled 5 centimeter umbilical hernia is present. This is a narrow neck hernia. Congestion an d fluid retention are seen in the subcutaneous fatty tissues. No suspicious bony findings. IMPRESSION: Advanced cirrhosis changes with no gross evidence for a liver lesion. Parenchymal assess ment is significantly limited in this setting. Moderate volume of ascites. Multi stone cholelithiasis. No acute gallbladder or biliary tree finding seen. No acute or GI finding seen. Full assessment is limited is the absence of IV contrast.
--- NOTE | 2021-10-10 19:56 | EDPHYS ---
Physician Documentation [facility] Name: Mc Willingham Age: 66 yrs Sex: Male : 1955 Arrival Date: 10/10/2021 Time: 16:45 Bed 17 Private MD: ED Physician Mihai Lyons HPI: 10/10 20:16 This 66 yrs old Male presents to ER via Ambulatory with complaints of kb Breathing Difficulty. 20:16 The patient has shortness of breath at rest, with light activity. Onset: The kb symptoms/episode began/occurred 3 week(s) ago. Duration: The symptoms are continuous. The patient's shortness of breath is aggravated by exertion, is alleviated by rest. Associated signs and symptoms: Pertinent positives: swelling in lower extremities, swelling of abd. Severity of symptoms: At their worst the symptoms were moderate in the emergency department the symptoms are unchanged. The patient has not experienced similar symptoms in the past. The patient has not recently seen a physician. Patient reports shortness of breath that is worse with exertion that started 3 weeks to 1 month ago. States the shortness of breath is getting worse and affecting his ADLs. Denies chest pain, fever, cough. Reports lower extremity edema and abdominal swelling that is gradually been getting worse as well. Daughter reports history of cirrhosis.. Historical: - Allergies: 16:48 No Known Drug Allergies; tw2 - Home Meds: 16:48 "i aint taking any medication" [Active]; tw2 - PMHx: 16:48 Hypertensive disorder; Diabetes mellitus; tw2 - Social history:: Smoking status: . ROS: 17:24 Constitutional: Negative for fever, chills, and weight loss. kb 17:24 Cardiovascular: Positive for edema, Negative for chest pain. 17:24 Respiratory: Positive for dyspnea on exertion, shortness of breath. 17:24 All other systems are negative. 17:24 Back: Positive for flank pain, bilaterally. kb Exam: 17:23 ECG was reviewed by the Attending Physician. kb 19:53 Constitutional: This is a well developed, well nourished patient who is awake, alert, kb and in no acute distress. Head/Face: Normocephalic, atraumatic. ENT: Moist Mucous membranes Cardiovascular: Regular rate and rhythm with a normal S1 and S2. No gallops, murmurs, or rubs. No pulse deficits. Respiratory: Respirations even and unlabored. No increased work of breathing. Talking in full sentences Skin: Warm, dry with normal turgor. Normal color. MS/ Extremity: Pulses equal, no cyanosis. Neurovascular intact. Full, normal range of motion. Neuro: Awake and alert, GCS 15, oriented to person, place, time, and situation. Moves all extremities. Normal gait. Psych: Awake, alert, with orientation to person, place and time. Behavior, mood, and affect are within normal limits. 19:53 Cardiovascular: Edema: 2+ edema to level of left ankle and right ankle. 19:53 Respiratory: Breath sounds: are clear throughout. 19:53 Abdomen/GI: Inspection: distension, that is moderate, in the abdomen diffusely, Bowel sounds: normal, Palpation: nontender. 20:18 Abdomen/GI: Rectal exam: rectal tone normal, Stool: brown, guaiac positive. kb Vital Signs: 16:46 BP 158 / 84; Pulse 83; Resp 22; Temp 98.4(TE); Pulse Ox 100% on R/A; tw2 16:46 Weight 90.72 kg (R); tw2 17:31 BP 165 / 88; Pulse 71; Resp 18; Pulse Ox 100% on 2 lpm NC; ld1 18:28 BP 168 / 86; Pulse 74; Resp 18; Pulse Ox 100% on R/A; ld1 21:23 BP 176 / 87; Pulse 71; Resp 23; Temp 98.7; Pulse Ox 100% on 2 lpm NC; ja4 22:38 BP 189 / 90; Pulse 74; Resp 20; Pulse Ox 100% on 2 lpm NC; ja4 10/11 01:50 BP 142 / 78; Pulse 69; Resp 19; Pulse Ox 98% on R/A; ja4 03:21 BP 172 / 87; Pulse 66; Resp 12; Pulse Ox 100% on R/A; ja4 MDM: 10/10 16:57 Patient medically screened. kb 17:24 Data reviewed: vital signs, nurses notes. kb 19:48 Physician consultation: Juan Luis Sahu MD was called at 19:48, no answer, will try meño again. 19:53 Physician consultation: Juan Luis Sahu MD was contacted at 19:53, regarding consult, kb patient's condition, and will see patient in inpatient room. 19:53 Physician consultation: Kurt COON was contacted at 19:53, regarding admission, kb to the telemetry unit. patient's condition, and will see patient in ED, shortly. 19:54 Data interpreted: Pulse oximetry: on room air is 100 %. Interpretation: normal. kb Counseling: I had a detailed discussion with the patient and/or guardian regarding: the historical points, exam findings, and any diagnostic results supporting the discharge/admit diagnosis, lab results, radiology results, the need for further work-up and treatment in the hospital. 10/10 16:57 Order name: Basic Metabolic Panel; Complete Time: 18:09 kb 10/10 16:57 Order name: CBC with Diff; Complete Time: 17:51 kb 10/10 16:57 Order name: D-Dimer; Complete Time: 17:51 kb 10/10 16:57 Order name: LFT's; Complete Time: 18:09 kb 10/10 16:57 Order name: Magnesium; Complete Time: 18:09 kb 10/10 16:57 Order name: NT PRO-BNP; Complete Time: 18:09 kb 10/10 16:57 Order name: PT-INR; Complete Time: 17:51 kb 10/10 16:57 Order name: Troponin HS; Complete Time: 18:09 kb 10/10 17:59 Order name: Type And Screen kb 10/10 17:59 Order name: SARS RAPID; Complete Time: 18:56 kb 10/10 18:00 Order name: Bb Add On bd 10/10 18:10 Order name: Packed RBC Leukored EDMS 10/10 20:18 Order name: Guiac; Complete Time: 20:41 kb 10/10 22:51 Order name: Glucose, Ancillary Testing; Complete Time: 22:56 EDMS 10/10 16:57 Order name: XRAY Chest (1 view); Complete Time: 17:46 kb 10/10 18:39 Order name: Abdomen ; Complete Time: 19:28 EDMS 10/10 23:38 Order name: CBC w/o diff sm5 10/11 00:10 Order name: CBC without Diff; Complete Time: 00:10 EDMS 10/11 02:40 Order name: CBC with Automated Diff EDMS 10/11 02:41 Order name: Ammonia EDMS 10/11 02:44 Order name: Protime (+INR) EDMS 10/11 02:47 Order name: Comprehensive Metabolic Panel EDMS 10/11 02:47 Order name: Transferrin Sat/Iron Binding EDMS 10/11 02:47 Order name: Ferritin EDMS 10/11 03:16 Order name: CBC Smear Scan EDMS 10/11 04:21 Order name: Hemoglobin A1c EDMS 10/11 08:49 Order name: Glucose, Ancillary Testing EDMS 10/10 16:57 Order name: EKG; Complete Time: 16:58 kb 10/10 16:57 Order name: Cardiac monitoring; Complete Time: 17:22 kb 10/10 16:57 Order name: EKG - Nurse/Tech; Complete Time: 17:22 kb 10/10 16:57 Order name: IV Saline Lock; Complete Time: 17:30 kb 10/10 16:57 Order name: Labs collected and sent; Complete Time: 17:30 kb 10/10 16:57 Order name: O2 Per Protocol; Complete Time: 17:22 kb 10/10 16:57 Order name: O2 Sat Monitoring; Complete Time: 17:22 kb EC:23 Rate is 71 beats/min. Rhythm is regular. QRS Loman is Normal. AR interval is normal at kb 186 msec. QRS interval is normal at 84 msec. QT interval is normal at 441 msec. Administered Medications: 20:45 Drug: ProTONIX (pantoprazole) 40 mg Route: IVP; Site: right antecubital; bb 23:11 Drug: Lasix (furosemide) 40 mg Route: IVP; Site: right antecubital; ja4 Disposition Summary: 10/10/21 19:56 Hospitalization Ordered Hospitalization Status: Inpatient Admission kb Provider: Hari Day Condition: Stable kb Problem: new kb Symptoms: are unchanged kb Bed/Room Type: Standard kb Location: Telemetry/MedSurg (Inpatient)(10/11/21 09:56) eb Room Assignment: 203(10/11/21 09:56) eb Diagnosis - Other ascites kb - Other cirrhosis of liver kb - GI Bleed/ Gastrointestinal hemorrhage, unspecified kb - Anemia, unspecified kb Forms: - Medication Reconciliation Form kb - SBAR form kb Signatures: Dispatcher [employer] EDWV Dolores Hernandez, MONSE-C MONSE-Shakira Mayer, RN RN bb Kurt Armstrong, BANBURY OPERATOR-C BANBURY OPERATOR-Cla1 Luli Parra RN RN tw2 Mikayla Bess Tiffany 5 Jerad Kumar RN RN ja4 Corrections: (The following items were deleted from the chart) 18:39 18:00 Abdomen Pelvis W Con+CT.RAD.BRZ ordered. EDMS EDMS 21:27 19:56 Telemetry/MedSurg (Inpatient) kb 21: 19:56 kb 10/11 09:56 08 21:27 [facility] ER HOLD [facility] eb 10/11 09:56 08 21:27 ERHOLD- 5 eb
--- NOTE | 2021-10-10 19:56 | ER ---
Nurse's Notes [facility] Name: Mc Willingham Age: 66 yrs Sex: Male : 1955 Arrival Date: 10/10/2021 Time: 16:45 Bed 17 Private MD: Diagnosis: Other ascites;Other cirrhosis of liver;GI Bleed/ Gastrointestinal hemorrhage, unspecified;Anemia, unspecified Presentation: 10/10 16:46 Chief complaint: Patient states: i am having trouble breathing , they tell me i tw2 probably got water in my lungs, i have been like this for days and i have been swelling up. Coronavirus screen: At this time, the client does not indicate any symptoms associated with coronavirus-19. Ebola Screen: Patient denies travel to an Ebola-affected area in the 21 days before illness onset. Initial Sepsis Screen: Does the patient meet any 2 criteria? RR > 20 per min. No. Patient's initial sepsis screen is negative. Does the patient have a suspected source of infection? No. Patient's initial sepsis screen is negative. Risk Assessment: Do you want to hurt yourself or someone else? Patient reports no desire to harm self or others. Onset of symptoms was October 10, 2021. 16:46 Method Of Arrival: Ambulatory tw2 16:46 Acuity: POPPY 3 tw2 Triage Assessment: 16:49 General: Appears uncomfortable, Behavior is calm, cooperative, appropriate for age. tw2 Pain: Denies pain. Cardiovascular: Reports shortness of breath. Respiratory: Reports shortness of breath at rest on exertion since 4 days now. Historical: - Allergies: 16:48 No Known Drug Allergies; tw2 - Home Meds: 16:48 "i aint taking any medication" [Active]; tw2 - PMHx: 16:48 Hypertensive disorder; Diabetes mellitus; tw2 - Social history:: Smoking status: . Screenin:30 Abuse screen: Denies threats or abuse. Denies injuries from another. Nutritional ld1 screening: No deficits noted. Tuberculosis screening: No symptoms or risk factors identified. Fall Risk None identified. Assessment: 17:31 General: Appears in no apparent distress. comfortable, Behavior is calm, cooperative, ld1 appropriate for age. Pain: Denies pain. Neuro: Maya Agitation-Sedation Scale (RASS): 0 - Alert and Calm Level of Consciousness is awake, alert, obeys commands, Oriented to person, place, time, situation, Appropriate for age. Cardiovascular: Capillary refill < 3 seconds Patient's skin is warm and dry. Rhythm is sinus rhythm. Respiratory: Airway is patent Respiratory effort is even, unlabored. Respiratory: Reports shortness of breath at rest on exertion. GI: Abdomen is round distended. : No signs and/or symptoms were reported regarding the genitourinary system. EENT: No signs and/or symptoms were reported regarding the EENT system. Derm: No signs and/or symptoms reported regarding the dermatologic system. Musculoskeletal: No signs and/or symptoms reported regarding the musculoskeletal system. 22:37 Reassessment: pt blood is finished at this time. pt shlomo well. Patient denies pain at ja4 this time. Vital Signs: 16:46 BP 158 / 84; Pulse 83; Resp 22; Temp 98.4(TE); Pulse Ox 100% on R/A; tw2 16:46 Weight 90.72 kg (R); tw2 17:31 BP 165 / 88; Pulse 71; Resp 18; Pulse Ox 100% on 2 lpm NC; ld1 18:28 BP 168 / 86; Pulse 74; Resp 18; Pulse Ox 100% on R/A; ld1 21:23 BP 176 / 87; Pulse 71; Resp 23; Temp 98.7; Pulse Ox 100% on 2 lpm NC; ja4 22:38 BP 189 / 90; Pulse 74; Resp 20; Pulse Ox 100% on 2 lpm NC; ja4 0804 01:50 BP 142 / 78; Pulse 69; Resp 19; Pulse Ox 98% on R/A; ja4 03:21 BP 172 / 87; Pulse 66; Resp 12; Pulse Ox 100% on R/A; ja4 ED Course: 10/10 16:45 Patient arrived in ED. rg4 16:47 Triage completed. tw2 16:48 Arm band placed on. tw2 16:49 Patient maintains SpO2 saturation greater than 95% on room air. tw2 16:57 [facility]C [facility] kb 16:57 Mihai Lyons MD is Attending Physician. kb 17:08 Yola De La Vega RN is Primary Nurse. ld1 17:30 Patient has correct armband on for positive identification. Placed in gown. Bed in low ld1 position. Call light in reach. Side rails up X2. nurse monitoring on. Pulse ox on. NIBP on. Door closed. Noise minimized. Warm blanket given. 17:30 No provider procedures requiring assistance completed. Inserted saline lock: 20 gauge ld1 in right antecubital area, using aseptic technique. Blood collected. 17:31 XRAY Chest (1 view) In Process Unspecified. EDMS 18:27 Type And Screen Sent. ld1 18:27 SARS RAPID Sent. ld1 18:39 Abdomen In Process Unspecified. EDMS 19:55 Hari Day MD is Hospitalizing Provider. kb 22:37 Packed RBC Leukored Sent. ja4 23:46 CBC w/o diff Sent. ja4 10/11 02:05 Primary Nurse role handed off by Yola De La Vega, RN maria luz 02:05 Jerad Kumar, RN is Primary Nurse. ja4 Administered Medications: 10/10 20:45 Drug: ProTONIX (pantoprazole) 40 mg Route: IVP; Site: right antecubital; bb 23:11 Drug: Lasix (furosemide) 40 mg Route: IVP; Site: right antecubital; ja4 Medication: 17:31 VIS not applicable for this client. ld1 20:41 Blood products: PRBCs X 1 unit given. See transfusion record. ja4 Outcome: 19:56 Decision to Hospitalize by Provider. kb 10/11 11:13 Patient left the ED. jg9 Signatures: Dispatcher [employer] EDNV Dolores Hernandez, NIPPLE MAKER-C NIPPLE MAKER-CkShakira Ken RN RN Luli Aponte, RN RN Michelle Haynes rgYola Kowalski, RN RN ld1 Chica Friedman RN RN jg9 Jerad Kumar, RN RN ja4
[2021-10-10] MEDS ORDERED: PANTOPRAZOLE 40 MG INJ ONE ×2 (20:33→22:57)
--- NOTE | 2021-10-10 21:37 | P.HP ---
Certification for Inpatient Patient admitted to: Inpatient With expected LOS: >2 Midnights Patient will require the following post-hospital care: None Practitioner: I am a practitioner with admitting privileges, knowledge of patient current condition, hospital course, and medical plan of care. Services: Services provided to patient in accordance with Admission requirements found in Title 42 Section 412.3 of the Code of Federal Regulations Patient History Date of Service: 10/10/21 Reason for admission: Upper GI bleed History of Present Illness: 66-year-old male with history of diabetes mellitus type 2, hypertension, LÓPEZ, cirrhosis liver secondary to alcohol abuse presents the emergency department for shortness of breath. He reports increasing dyspnea on exertion over the course of the last 1 month or so as well as increasing abdominal distention. Patient was evaluated in the emergency department his labs were significant for acute kidney injury, elevated BNP, elevated D-dimer, microcytic anemia and FOBT positive with soft brown stool. Patient denies any hematochezia, hematemesis or melena. ED provider discussed case with gastroenterology who will be happy to consult. We will need to admit patient for acute blood loss anemia, upper GI bleed, ascites/abdominal distention and acute kidney injury. Allergies No Known Drug Allergies Allergy (Verified 11/10/20 23:01) Unknown Home Medications: Carvedilol [Coreg] 12.5 mg PO BID #60 tablet 11/12/20 Empagliflozin [Jardiance] 25 mg PO DAILY 11/12/20 Ferrous Sulfate [Feosol] 325 mg PO BID #60 tab 11/12/20 Fludrocortisone [Florinef *] 0.1 mg PO DAILY #30 tab 11/12/20 Gabapentin 300 mg PO DAILY 11/12/20 Insulin Glargine,Hum.rec.anlog [Toujemal Solostar] 60 units SQ DAILY 11/12/20 Metformin HCl 1,000 mg PO BID 11/12/20 Oxybutynin Chloride 5 mg PO BID 11/12/20 - Past Medical/Surgical History Diabetic: Yes -: HTN -: DM -: overactive bladder -: Cirrhosis of liver -: Alcohol abuse -: I and D abscess near rectum -: skin tag removal Psychosocial/ Personal History: Lives at home with family - Family History Mother -: Hypertension, Diabetes Sister -: Hypertension, Diabetes - Social History Smoking Status: Never smoker Alcohol use: Yes CD- Drugs: No Caffeine use: No Place of Residence: Home Review of Systems 10-point ROS is otherwise unremarkable Respiratory: Shortness of Breath Gastrointestinal: Distention Physical Examination - Physical Exam General: Alert, In no apparent distress, Oriented x3 HEENT: Atraumatic, PERRLA, Mucous membr. moist/pink, EOMI, Sclerae nonicteric Neck: Supple, 2+ carotid pulse no bruit, No LAD, Without JVD or thyroid abnormality Respiratory: Clear to auscultation bilaterally, Normal air movement Cardiovascular: Regular rate/rhythm, Normal S1 S2 Capillary refill: <2 Seconds Gastrointestinal: Normal bowel sounds, Distended, Ascites Musculoskeletal: No tenderness Integumentary: No rashes Neurological: Normal gait, Normal speech, Normal strength at 5/5 x4 extr, Normal tone, Normal affect - Studies Laboratory Data (last 24 hrs) 10/10/21 17:27: PT 13.6 H, INR 1.23 10/10/21 17:27: WBC 4.0 L, Hgb 6.6 L*, Hct 21.0 L, Plt Count 167 10/10/21 17:27: Sodium 137, Potassium 4.5, BUN 26 H, Creatinine 1.67 H, Glucose 112 H, Magnesium 2.6 H, Total Bilirubin 0.4, AST 12 L, ALT 13, Alkaline Phosphatase 77 Microbiology Data (last 24 hrs): 10/10/21 20:18 Stool Occult Blood - Final Assessment and Plan - Plan Assessment: Microcytic anemia secondary to acute blood loss anemia/upper GI bleed with underlying LÓPEZ Alcoholic cirrhosis of liver with ascites/abdominal distention Diabetes mellitus type 5jpa-lzzngks-wjigunegk/noncompliant History of hypertension Acute kidney injury Elevated D-dimer Plan: Microcytic anemia secondary to acute blood loss anemia/upper GI bleed with underlying LÓPEZ: Initial hemoglobin 6.6 FOBT positive no gross melena, hematochezia, hematemesis. Currently receiving 1 unit packed red blood cell transfusion will obtain 2 hypertransfusion H&H, GI consult in place and notified. We will also obtain LÓPEZ labs. Appreciate further GI. Alcoholic cirrhosis of liver with ascites/abdominal distention/anasarca: Patient drinks daily approximately 3-4 tall boys has been drinking for the last 30 years or so daily we will monitor for signs of alcohol withdrawal while he is here. He has significant abdominal distention and moderate ascites on the CT scan likely benefit from paracentesis which has been ordered but unlikely to be completed until Friday. Appreciate further input from GI. Given dose of Lasix in the ER, continue IV Lasix. We will hold spironolactone given mild renal d ysfunction at this time. Appreciate further input from GI Diabetes mellitus type 5hfi-tsryism-tkxoastuw/noncompliant: ACH S Accu-Chek, mild sliding scale insulin. A1c in the morning. History of hypertension: He reports that he was having problems with orthostatic hypotension and syncope in the past he stopped taking his blood pressure medications at home and he reports that this has improved. Will monitor patient's blood pressure believe you are in the hospital provide medication as needed. Acute kidney injury: Suspect pararenal syndrome, nephrology to be consulted as well. We will continue diuresis with Lasix at this point time. Elevated D-dimer: Given patient's renal insufficiency CT PE protocol was not ordered, will attempt obtain VQ scan given patient's shortness of breath and elevated D-dimer. DVT PPX: SCD Code status: Full Discharge Plan: Home Plan to discharge in: 72 Hours - Advance Directives Does patient have a Living Will: No Does patient have a Durable POA for Healthcare: No - Code Status/Comfort Care Code Status Assessed: Yes (Full code) Critical Care: No Time Spent Managing Pts Care (In Minutes): 70
[2021-10-10] MEDS ORDERED: ONDANSETRON 4 MG/2 ML VIAL IV PRN (22:15)
[2021-10-10] MEDS: PANTOPRAZOLE 40 MG INJ IVP SCH (22:15)
[2021-10-10] MEDS: INSULIN -REGULAR HUMAN 50 UNIT/0.5 ML ML SQ SCH (22:15)
[2021-10-10] MEDS ORDERED: SODIUM CHLORIDE 0.9% 10ML INJ IV PRN (22:15)
[2021-10-10] MEDS ORDERED: FUROSEMIDE 40 MG/4 ML VIAL ONE (22:57)
[2021-10-11 00:06] LABS: Hematocrit 23.9 % (39.6-49.0); MCV 66.7 fL (80-100); MPV 8.4 fL (7.6-11.3); RBC Red Blood Cell Count 3.59 M/uL (4.33-5.43)
[2021-10-11 01:59] VITALS: BMI 30.4
[2021-10-11 02:33] LABS: Absolute Lymphocytes (CBC) 0.6 K/uL (0.7-4.9); Hematocrit 23.8 % (39.6-49.0); Lymphocytes % 13.5 % (15.3-44.8); MCV 66.5 fL (80-100); MPV 7.2 fL (7.6-11.3); RBC Red Blood Cell Count 3.58 M/uL (4.33-5.43)
[2021-10-11 02:43] LABS: Protime INR 1.28
[2021-10-11 02:47] LABS: Albumin 2.2 g/dL (3.4-5.0); Bilirubin Total 1.1 mg/dL (0.2-1.0); Ferritin 11.8 ng/mL (26-388); Potassium 4.7 mmol/L (3.5-5.1); Protein, Total 6.4 g/dL (6.4-8.2)
[2021-10-11 03:16] LABS: Blood Morphology Comment NOTED (NOT SEEN); Hypochromasia 1+; Platelet Estimate ADEQ; Polychromasia 1+; White Blood Cell Scan OK (OK)
--- NOTE | 2021-10-11 06:37 | P.PN ---
Date of Service: 10/11/21 Subjective: feels slightly improved short of breath with movement ok if he lays still, ok to lay flat ROS: as noted above, otherwise 10 point ROS negative Physical Exam General: alert, oriented; slightly uncomfortable appearing HEENT: sclera anicteric, normal conjunctiva Respiratory: Clear to auscultation bilaterally, Normal air movement Cardiovascular: Regular rate/rhythm, trace b/l lower extremity edema Gastrointestinal: distended, mild discomfort, caput medusae in upper abdomen Integumentary: No rashes Neurological: Normal speech, Normal strength at 5/5 x4 extr, Normal affect Problem List: Microcytic anemia secondary to acute blood loss anemia/upper GI bleed with underlying LÓPEZ Alcoholic cirrhosis of liver with ascites/abdominal distention Diabetes mellitus type 0smr-qolucca-ilsyhvdpl/noncompliant History of hypertension Acute kidney injury PE VQ scan: moderate probability for PEs; Pulmonology consulted. patient high risk for anticoagulation given cirrhosis, occult+, anemia pulm recommended no anticoagulation at this time, general surgery consulted for IVC filter placement - tentative plan tomorrow late morning occult positive in ED hgb decreased from baseline of ~8.5-9; down to 6.6, 1u PRBC given, with improvement, patient feels better GI consulted - EGD done today, 2 AVMs noted, no bleeding, s/p clips; ok from EGD standpoint for possible anticoagulation iron deficient, likely secondary to decreased absorption/intake, and occult bleed liver cirrhosis secondary to alcohol; significant alcohol history has not seen a physician for this issue, reports swelling worsening over last ~1-2 months paracentesis ordered BEATRIZ - nephrology consulted; possible hepatorenal component,. given lasix in ER VTE: SCDs Code: full Dispo: home, ~3 days Time Spent Managing Pts Care (In Minutes): 45
[2021-10-11] MEDS: INSULIN -REGULAR HUMAN 50 UNIT/0.5 ML ML SQ SCH ×4 (07:30→21:00)
[2021-10-11] MEDS ORDERED: FUROSEMIDE 20 MG/ 2ML VIAL IV SCH (09:00)
[2021-10-11] MEDS: PANTOPRAZOLE 40 MG INJ IVP SCH ×2 (09:00→19:59)
--- NOTE | 2021-10-11 10:33 | EKG ---
Test Date: 2021-10-10 Test Time: 17:10:38 Partner: BOYD MEASUREMENT RESULTS: Intervals: Rate: 71 KS: 186 QRSD: 84 QT: 406 QTc: 441 [place]: P: 20 KS: 186 QRS: 12 T: 35 INTERPRETIVE STATEMENTS: Normal sinus rhythm Normal ECG Compared to ECG 11/09/2020 16:10:34 No significant changes Electronically Signed On 10-11-21 10:31:23 CDT by Jose M Munguia
[2021-10-11] MEDS ORDERED: PANTOPRAZOLE 40 MG INJ ONE (10:39)
[2021-10-11] MEDS ORDERED: FUROSEMIDE 20 MG/ 2ML VIAL ONE (10:39)
[2021-10-11] MEDS ORDERED: EPINEPHRINE/PF 1 MG/ML AMP ONE (11:07)
--- NOTE | 2021-10-11 11:16 | RAD REPORT ---
EXAM DESCRIPTION: NM - Vent Perfusion VQ Scan - 10/11/2021 11:10 am CLINICAL HISTORY: r/o PE, dyspnea, elev. dd Chest pain, shortness of breath COMPARISON: Abdomen Pelvis Wo Contrast dated 10/10/2021 TECHNIQUE: 23.4mCi Xe-133 gas inhaled and 7.1mCi Tc-MAA IV. Planar ventilation scan was performed in posterior projection after Xe-133 gas inhalation (wash-in, e quilibrium, and wash-out phases) followed by perfusion scan with Tc-MAA IV in multiple projections. Examination is correlated with recent chest radiograph. FINDINGS: Normal ventilation with appropriate wash-out and no significant air-trapping. Multiple defects are present along the periphery both lungs on the perfusion examination. These are m ismatched defects. IMPRESSION: Intermediate to high probability pulmonary embolism.
[2021-10-11] MEDS ORDERED: NA CHLORIDE 0.9% 1,000 ML ONE (11:30)
[2021-10-11] MEDS ORDERED: LIDOCAINE 1% MPF 5 ML VIAL ONE (13:05)
[2021-10-11] MEDS ORDERED: propofoL 200 MG/20 ML VIAL IV ONE ×2 (13:05→13:06)
--- NOTE | 2021-10-11 15:45 | CON ---
Date of Consultation: 10/11/2021 Reason For Consultation: Elevated BUN and creatinine, fluid management. History Of Present Illness: This is a 66-year-old gentleman with significant past medical history of diabetes since 1991 complicated with neuropathy and no retinopathy, hypertension, iron deficiency anemia, cirrhosis, the patient came to the hospital because of shortness of breath and found to have severely anemic, hemoglobin down to 6.6. For that reason, the patient was admitted. Primary workup showed creatinine 1.6 with GFR of 42. For that reason, we have been consulted. Reviewing the record for the patient back in November 2020, creatinine was within normal limit at 0.9 with GFR of 83. The patient denied taking any nonsteroidal. No recent change in his medication. The patient had ascites. The patient denied any fever or chills. The patient planned for EGD today. Reviewing the record for the patient, the patient apparently as outpatient being on metformin. There is no mention for any JAXON inhibitor. The patient also on oxybutynin. There is no mention for any low blood pressure, in fact blood pressure is on the upper side. No contrast exposure on this admission. Past Medical History: Includes; 1. Diabetes complicated with neuropathy. 2. Hypertension. 3. Hyperlipidemia. 4. Cirrhosis. 5. Chronic kidney disease, stage 2, status post acute kidney injury 2 years back secondary to LOUISE. 6. Iron deficiency anemia. Allergies: NO KNOWN DRUGS ALLERGY. Home Medications: Include; 1. Carvedilol 12.5. 2. Jardiance. 3. Florinef. 4. Gabapentin. 5. Insulin. 6. Metformin. 7. Oxybutynin. Past Surgical History: Includes; 1. I and D for rectal abscess. 2. Skin tag removal. Family History: Positive for diabetes and hypertension. Social History: Denied smoking. Positive alcohol. Denied drug abuse. Review of Systems: Head and Neck: No red eye. No ear pain. GI: Increased abdominal girth. : No polyuria. No dysuria. No hematuria. No foamy urine. Public Relations Director: Not applicable. Respiratory: Has shortness of breath. Cardiovascular: No orthopnea. The patient lying flat. Endocrine: No polydipsia. Skin: No rash. Neuro: Has neuropathy. Musculoskeletal: Generalized fatigue. Physical Examination: Vital Signs: When I saw the patient; blood pressure of 186/72, pulse of 67, afebrile. Chest: Clear to auscultation. Heart: S1, S2. Systolic murmur. Abdomen: Positive for ascites and hepatomegaly. Extremity: No edema. Neuro: Alert, oriented x3. No focal. No tremor. Laboratory Data: Chest x-ray; cardiomegaly with congestion bilateral compared to old chest x-ray, no significant changes except increase the cardiomegaly. Urine analysis was not done. CT abdomen and pelvis done without contrast shows ascites. No hydronephrosis. Current Medications: The patient on include Lasix 20 b.i.d., pantoprazole, insulin. Assessment And Plan: 1. Acute kidney injury, mostly secondary to hepatorenal syndrome. Looked to me overall the patient on the dry side/hepatorenal. The patient is going to receive blood transfusion. I am going to go ahead and hold on the Lasix for the time being. Obstructive uropathy has been ruled out. We will follow up after blood transfusion and fluid resuscitation. I am going to go ahead and send for urine electrolyte, PC ratio. I do not see the need for ultrasound as obstructive uropathy has been ruled out to confirm hepatorenal syndrome. We will send for the urine electrolyte and the uric acid and depending on that, we will decide if we need to start the patient on fluid expansion including albumin, IV fluid and midodrine or we are going to be satisfied with the fluid resuscitation as it is just prerenal and we will follow up the patient closely. 2. Chronic kidney disease secondary to diabetes nephropathy, LOUISE, normal size kidney with acute kidney injury as above. 3. Hyponatremia, dilutional, secondary to cirrhosis. We will follow up the patient. I do not see the need of treatment right now. The patient is going to receive a blood transfusion. We will follow up. 4. Diabetes as by primary with the presence of cirrhosis, acute kidney injury. I agree with holding the metformin for the time being. 5. Cirrhosis with ascites. To consider paracentesis with the presence of hepatorenal, paracentesis will help if there is any component of compartment syndrome causing the renal failure. 6. GI bleed. The patient receiving transfusion. Plan for EGD. Continue PPI. We will follow up with primary. Thank you, Dr. Day for allowing us to participate in the care of your patient. Time spent examining the patient [id number], reviewing the data, placing order, discussing with by bedside, discussing with staff member including charge nurse and nursing and hospitalist 65 minutes. PATRICE Voice ID: [id number] Report ID: [id number] SARAH
--- NOTE | 2021-10-11 16:54 | RAD REPORT ---
EXAM DESCRIPTION: US - Extrem Venous W Compress Steven - 10/11/2021 4:39 pm CLINICAL HISTORY: Rule out DVT both legs COMPARISON: None. TECHNIQUE: Real-time sonographic evaluation of the bilateral lower extremity common femoral, superfi cial femoral, popliteal and posterior tibial veins was performed. FINDINGS: Normal compressibility, flow augmentation, phasic flow and spontaneous flow are identified in the left and right lower extremity common femoral, superficial femoral, popliteal and posterior t ibial veins. No intraluminal filling defects seen. Focal increased echogenicity is present along the posterior wall of the right femoral vein. This is possibly the sequela of old DVT. This does not narr ow the vessel lumen is not regarded as significant. IMPRESSION: No acute DVT in either lower extremity.
--- NOTE | 2021-10-12 01:36 | OP ---
Surgeon: Juan Luis Sahu MD Procedure Performed: Esophagogastroduodenoscopy. Indication For Procedure: Occult blood in stools, anemia. The patient with PE may require anticoagu lation. Anesthesia: Plan for anesthesia, monitored anesthesia care. Complexity: High due to patient's comorbidities. Technique: After obtaining informed consent from the patient and explaining risks and complications which include, but are not limited to bleeding, infection, perforation, and anesthesia complication, the patient was placed in left lateral position and sedation was given. From then on, the scope was advanced into the mouth and carefully guided up until the second portion of the duodenum. After comp letion of examination, scope and equipment were withdrawn and procedure terminated in a safe manner. Findings: Esophagus: No gross lesion seen in the entire esophagus. No evidence of esophageal varic es was seen. Stomach: Mild patchy erythema seen. Some of the antral portion of the stomach was obscured with bradley e food, but visualization of around 90% of the stomach was obtained. Two nonbleeding angiodysplasias were seen in the body of the stomach. Both of these were ablated with APC and then in anticipation of anticoagulation, clips were also placed after ablation to ensure there was no bleeding that occurs from ulcer formation at these sites. Duodenum: The bulb and second portion appeared normal. Complications: None. Tolerance To Anesthesia: Excellent. Postoperative Diagnosis: Gastric arteriovenous malformation status post treatment, gastritis. Plan: Continue PPI. We would need to have a detailed discussion with the primary care team as well as Pulmonology for the need for anticoagulation. If they deemed it is necessary, anticoagulation can be started and would need to be closely followed by the patient's primary care provider. Rest of hi s workup including liver workup can be done on an outpatient basis and I had asked him to come and se e me in the clinic. US/MODL Voice ID: [id number] Report ID: [id number]
[2021-10-12 02:19] LABS: Specific Gravity >= 1.030 (1.005-1.030); Urine Bilirubin Negative (Negative); Urine Blood 1+ (Negative); Urine Clarity Clear (Clear); Urine Color Yellow (Yellow); Urine Glucose Negative (Negative); Urine Protein 2+ (Negative); Urine Urobilinogen 0.2 mg/dL (0.2-1.0); Urine pH 5.5 (5.0-7.0)
[2021-10-12 02:36] LABS: Urine Bacteria 20-50 /HPF (<20)
[2021-10-12 02:37] LABS: Urine Mucus 1+ /HPF (None Seen)
[2021-10-12 04:50] LABS: Absolute Lymphocytes (CBC) 0.5 K/uL (0.7-4.9); Hematocrit 23.2 % (39.6-49.0); Lymphocytes % 13.1 % (15.3-44.8); MCV 66.9 fL (80-100); MPV 8.1 fL (7.6-11.3); RBC Red Blood Cell Count 3.47 M/uL (4.33-5.43)
[2021-10-12 04:51] LABS: Protime INR 1.28
[2021-10-12 05:16] LABS: Bilirubin Total 0.4 mg/dL (0.2-1.0); Phosphorus 3.4 mg/dL (2.5-4.9); Potassium 4.4 mmol/L (3.5-5.1); Protein, Total 5.8 g/dL (6.4-8.2); Thyroid Stimulating Hormone 3.58 uIU/mL (0.360-3.740); Uric Acid 9.6 mg/dL (3.5-7.2)
--- NOTE | 2021-10-12 05:54 | P.PN ---
Date of Service: 10/12/21 Subjective: feels ok, on room air now, breathing ok at rest no change in distention, no new symptoms ROS: as noted above, otherwise 10 point ROS negative Physical Exam General: alert, oriented; NAD HEENT: sclera anicteric, normal conjunctiva Respiratory: diminished bilaterally, limited inspiration Cardiovascular: Regular rate/rhythm, trace b/l lower extremity edema Gastrointestinal: distended, mild discomfort, caput medusae in upper abdomen Neurological: Normal speech, Normal strength at 5/5 x4 extr, Normal affect Problem List: Microcytic anemia secondary to acute blood loss anemia/upper GI bleed with underlying LÓPEZ Alcoholic cirrhosis of liver with ascites/abdominal distention Diabetes mellitus type 8bhf-[id number]-avqkhsxcv/noncompliant History of hypertension Acute kidney injury PE VQ scan: moderate probability for PEs; Pulmonology consulted. patient high risk for anticoagulation given cirrhosis, occult+, anemia pulm recommended no anticoagulation at this time, general surgery consulted for IVC filter placement paracentesis not done - no paracentesis tray available, and by the time they were received, radiologist had left for the day IVC filter unable to be placed due to techical difficulties / concern for thrombus in ivc discussed again with pulm and GI, recommend anticoagulation, at least low dose discussed at length with patient and daughter who will discuss further with the rest of his family to decide if he will want to take anticoagulation patient is uninsured, would need to be bridged to coumadin developed small R hematoma after ivc filter attempt, monitor overnight; no anticoagulation for now occult positive in ED hgb decreased from baseline of ~8.5-9; down to 6.6, 1u PRBC given, with improvement, patient feels better GI consulted - EGD done, 2 AVMs noted, no bleeding, s/p clips; ok from EGD standpoint for possible anticoagulation iron deficient, chronic, likely secondary to decreased absorption/intake, and occult bleed liver cirrhosis secondary to alcohol; significant alcohol history has not seen a physician for this issue, reports swelling worsening over last ~1-2 months paracentesis ordered BEATRIZ - nephrology consulted; possible hepatorenal component,. given lasix in ER VTE: SCDs Code: full Dispo: home, ~3 days, possibly more if bridging to coumadin Time Spent Managing Pts Care (In Minutes): 45
[2021-10-12] MEDS ORDERED: NA CHLORIDE 0.9% 1,000 ML ONE (07:30)
[2021-10-12] MEDS: INSULIN -REGULAR HUMAN 50 UNIT/0.5 ML ML SQ SCH ×4 (07:30→21:00)
[2021-10-12] MEDS ORDERED: CEFAZOLIN SODIUM 1 GM/VIAL ONE (08:21)
[2021-10-12] MEDS: PANTOPRAZOLE 40 MG INJ IVP SCH ×2 (09:00→20:45)
[2021-10-12] MEDS ORDERED: propofoL 200 MG/20 ML VIAL IV ONE ×2 (09:51→10:44)
[2021-10-12] MEDS ORDERED: ONDANSETRON 4 MG/2 ML VIAL ONE (09:52)
[2021-10-12] MEDS ORDERED: LIDOCAINE 2% MPF 5 ML VIAL ONE (09:52)
[2021-10-12] MEDS ORDERED: MIDAZOLAM HCL 2 MG/2 ML INJ ONE (09:52)
[2021-10-12] MEDS ORDERED: BUPIVACAINE 0.5% PF 10 ML VIAL ONE (10:00)
[2021-10-12] MEDS: HEPARIN 5000 UNIT/ML 1 ML VIAL ONE ×2 (10:01→10:45)
[2021-10-12] MEDS ORDERED: NA CHLORIDE 0.9% 50 ML ONE (10:01)
[2021-10-12] MEDS ORDERED: LIDOCAINE 1% MPF 5 ML VIAL ONE (10:03)
[2021-10-12] MEDS ORDERED: EPHEDRINE SULF 50 MG/ML VIAL ONE (11:03)
--- NOTE | 2021-10-12 11:17 | P.OP ---
Date of Service: 10/12/21 Preop diagnosis: GI bleed, pulmonary embolus Postop diagnosis: Same Procedure performed: Attempted placement of [place] filter right femoral vein and right internal jugular vein, interpretation of intraoperative fluoroscopy Surgeon: Yamil Lopez MD Plate Grainer Apprentice: None Estimated blood loss: Minimal Specimen: None Findings: Unable to pass the guidewire in the appropriate location for deployment of the [place] filter Anesthesia: General Complications: None Drains: None Fluids and blood products: Nonapplicable Disposition: Recovery room Operative note: Patient brought to the OR placed in supine position. General anesthesia begun. Lidocaine 1% infiltrated locally. Doppler used to identify the location of the right femoral artery. 18-gauge needle used to access the right femoral vein. Guidewire passed into the distal IVC. However, unable to pass the sheath introducer and dilator over the guidewire due to anatomic difficulty. Right IJ prepped and draped in the usual sterile fashion. 18-gauge needle used to access the right IJ vein. Guidewire was passed through the heart and the liver, but, unable to go beyond T12 level secondary to possible thrombus. At this point I would could not give the patient any dye as patient's renal functions are borderline. So, I opted to stop the procedure. I will disc uss with Dr. Day regarding transfer the patient to a tertiary care facility where this can be performed safely with the appropriate equipment and support necessary for this complex case. Patient tolerated the procedure in stable condition and taken to recovery room in good general condition. CC:
--- NOTE | 2021-10-12 11:18 | P.CNS ---
Date of Consult: 10/12/21 Reason for Consult: Abnormal VQ scan Chief Complaint: Upper GI bleed History of Present Illness: Patient is 66 years of age metabolic syndrome cirrhosis of the liver. With worsening dyspnea abdominal distention microcytic anemia positive stools for blood had a VQ scan done that was indeterminate probability patient also had an EGD done down for a paracentesis patient still complains of dyspnea Allergies No Known Drug Allergies Allergy (Verified 11/10/20 23:01) Unknown - Past Medical/Surgical History Diabetic: Yes -: HTN -: DM -: overactive bladder -: Cirrhosis of liver -: Alcohol abuse -: I and D abscess near rectum -: skin tag removal Psychosocial/ Personal History: Lives at home with family - Family History Mother Medical History: Hypertension, Diabetes Sister Medical History: Hypertension, Diabetes - Social History Smoking Status: Former smoker Alcohol use: Yes CD- Drugs: No Caffeine use: No Place of Residence: Home Review of Systems General: Weakness Respiratory: Shortness of Breath Physical Examination Temp Pulse Resp BP Pulse Ox 97.5 F 82 17 175/85 H 98 10/12/21 04:00 10/12/21 04:00 10/12/21 04:00 10/12/21 04:00 10/12/21 04:00 General: Alert, In no apparent distress, Mild distress Respiratory: Clear to auscultation bilaterally Cardiovascular: No edema, Regular rate/rhythm, Normal S1 S2 Gastrointestinal: Normal bowel sounds, Soft and benign, Distended, Ascites - Problems (1) Pulmonary embolism Current Visit: Yes Status: Acute Plan: Patient is 66 years of age admitted with worsening dyspnea normal VQ scan possibly pulmonary embolism risk for bleeding recommended filter placement in addition he is got mild renal impairment chest x-ray diminished lung volumes abdominal CT scan advanced cirrhosis patient s/p EGD did have angiodysplasias were treated currently stable hemoglobin stable he was transfused 1 unit of packed red blood cells evaluate off oxygen lower extremity negative for DVT oxygen sat was documented 98% on room air Qualifiers: Chronicity: unspecified
--- NOTE | 2021-10-12 11:42 | RAD REPORT ---
EXAM DESCRIPTION: RAD - Chest Single View - 10/12/2021 11:36 am CLINICAL HISTORY: Attempted [place] filter placement Chest pain. COMPARISON: Chest Single View dated 10/10/2021; Chest Single View dated 11/09/2020; Chest Single View da ros 05/19/2018; Chest Pa And Lat (2 Views) dated 04/20/2017 FINDINGS: Portable technique limits examination quality. The lungs are mildly underinflated but grossly clear. No pneumothorax is evident. The heart is normal in size. No displaced fractures. IMPRESSION: No acute intrathoracic process suspected.
[2021-10-12 11:52] VITALS: O2SAT 98
--- NOTE | 2021-10-12 12:58 | RAD REPORT ---
EXAM DESCRIPTION: RAD - Fluoroscopy <1 Hour - 10/12/2021 12:53 pm CLINICAL HISTORY: ATTEMPT TOBI COMPARISON: Vent Perfusion VQ Scan dated 10/11/2021 FINDINGS: Fluoroscopy time: 6.9 minutes
--- NOTE | 2021-10-12 13:33 | PREOPCON ---
Date of Consultation: 10/11/2021 Reason For Consultation: Patient needs a Selam filter. History Of Present Illness: Patient is a 66-year-old gentleman with multiple medical problems, inclu ding cirrhosis who came in with shortness of breath and workup revealed intermediate to high probabil ity of PE on V/Q scan and patient also has history of GI bleed. Patient had an endoscopy done and wa s found to have AV malformation. It was felt that it would be safer for the patient to have a filter placed. Patient is awake, alert, feels a little better. Shortness of breath has improved. No sore throat, runny nose, cough, headaches, or dizziness. No chest pain. No fever or chills. Review of Systems: Otherwise unremarkable. Past Medical History: Significant for cirrhosis, ascites, hypertension, and diabetes. Allergies: NO ALLERGIES. Past Surgical History: I and D for rectal abscess. Patient does not smoke. Does drink alcohol. Family History: Significant for diabetes and hypertension. Physical Examination: Vital Signs: Currently stable. He is afebrile. General: He is awake, alert, and oriented x3. Head and Neck: No masses. Chest: Clear. Heart: S1, S2. Abdomen: Soft, nondistended. Positive bowel sounds. Nontender. Extremities: Adequately perfused. Nontender. Neuro: Nonfocal. Laboratory Data: White count is 3.5, H and H are 7.1 and 23.2, platelets are 162. INR is less than 1.5. Chemistry reviewed. Assessment: A 66-year-old gentleman with multiple medical problems with pulmonary embolism and risk of gastrointestinal bleeding. Recommendations: We will go ahead and place a [place] filter through the right groin. Patient do es not have a clot in either leg seen on the venous Doppler and then patient understands the risks, b enefits, and alternatives and agrees to procedure. /MODL Voice ID: [id number] Report ID: [id number]
[2021-10-12] MEDS: ACETAMINOPHEN 500 MG TAB PO PRN (16:55)
[2021-10-13 05:23] LABS: Absolute Lymphocytes (CBC) 0.4 K/uL (0.7-4.9); Hematocrit 21.2 % (39.6-49.0); Lymphocytes % 12.6 % (15.3-44.8); MCV 66.6 fL (80-100); MPV 8.2 fL (7.6-11.3); RBC Red Blood Cell Count 3.18 M/uL (4.33-5.43)
[2021-10-13 05:37] LABS: Albumin 1.9 g/dL (3.4-5.0); Bilirubin Total 0.4 mg/dL (0.2-1.0); Magnesium 2.3 mg/dL (1.8-2.4); Phosphorus 3.1 mg/dL (2.5-4.9); Potassium 4.6 mmol/L (3.5-5.1); Protein, Total 5.9 g/dL (6.4-8.2)
--- NOTE | 2021-10-13 05:37 | P.PN ---
Subjective Date of Service: 10/12/21 Chief Complaint: Upper GI bleed Subjective: No new changes, Other (C/o abdominal distention.) Physical Examination - Vital Signs Temperature: 97.8 F Blood Pressure: 138/85 Pulse: 79 Respirations: 15 Pulse Ox (%): 99 - Physical Exam General: In no apparent distress HEENT: Atraumatic, Normocephalic Neck: Supple, JVD not distended Respiratory: Other (symmetric chest expansion) Cardiovascular: No rubs, No murmurs Gastrointestinal: Distended, Ascites Musculoskeletal: No clubbing Integumentary: No warmth Neurological: Normal speech, Normal tone Urinary: Other (no bladder distention) External genitalia: Deferred Rectal: Deferred Assessment And Plan - Plan 1. Acute kidney injury 2/2 ATN +/- HRS1 +/- abd compartment syndrome. iPTH wnl, no advanced kidney dse at baseline. Resume lasix + tenisha as below. Ola po fluid intake. For large volume paracentesis. Monitor I/O, renal panel. 2. 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 Baseline SCr 0.9-1.0. Monitor renal panel. 3. Decompensated etoh liver cirrhosis w/ ascites. MELD-Na score 15. Resume lasix 40 mg po bid + tenisha 25 mg po bid. Titrate diuretic dosing based on serum K & SCr. MInimize diuretic dosing if he no longer has peripheral edema. Strictly low Na diet. Ola po fluid intake. Recommend transfer to liver transplant hospital. 4. Pulmo embolism. For low-dose therapeutic anticoagulation. 5. Severe anemia w/ GI bleed. Received blood transfusion. EGD done showed 2 AVMs, no bleeding, s/p clipping. Continue PPI. 6. DM2. Mngt per primary team.
--- NOTE | 2021-10-13 05:51 | P.PN ---
Date of Service: 10/13/21 Subjective: feels ok, fatigued, dyspnea with exertion on room air at rest right groin without increased swelling/pain ROS: as noted above, otherwise 10 point ROS negative Physical Exam General: alert, oriented; NAD HEENT: sclera anicteric, normal conjunctiva Respiratory: diminished bilaterally, limited inspiration Cardiovascular: Regular rate/rhythm, trace b/l lower extremity edema Gastrointestinal: distended, mild discomfort, caput medusae in upper abdomen Neurological: Normal speech, Normal strength at 5/5 x4 extr, Normal affect SCDs in place Problem List: Microcytic anemia secondary to acute blood loss anemia/upper GI bleed with underlying LÓPEZ Alcoholic cirrhosis of liver with ascites/abdominal distention Diabetes mellitus type 8mmw-[id number]-bbjdlttwd/noncompliant History of hypertension Acute kidney injury PE VQ scan: moderate probability for PEs; Pulmonology consulted. patient high risk for anticoagulation given cirrhosis, occult+, anemia pulm recommended no anticoagulation given risk and attempt IVC filter IVC filter unable to be placed due to techical difficulties / concern for thrombus in ivc discussed again with pulm and GI on 10/12, recommend anticoagulation, at least low dose discussed at length with patient and family this morning - regarding recommendation for anticoagulation, discussed risks/benefits patient is uninsured, would need to be bridged to coumadin developed small R hematoma after ivc filter attempt, no significant change appreciated on exam hgb <7, patient had some blood loss from IVC filter attempt, hematoma, blood draws, low production, from comorbidities occult positive in ED hgb decreased from baseline of ~8.5-9; down to 6.6, 1u PRBC given, with improvement, patient felt better 10/13 back down below 7 again; transfue 2u PRBC GI consulted - EGD done 10/12, 2 AVMs noted, no bleeding, s/p clips; ok from EGD standpoint for possible anticoagulation iron deficient, chronic, likely secondary to decreased absorption/intake, and occult bleed start IV iron 10/13 liver cirrhosis secondary to alcohol; significant alcohol history has not seen a physician for this issue, reports swelling worsening over last ~1-2 months paracentesis ordered Unfortunately paracentesis not done - no paracentesis tray available, and by the time they were received, radiologist had left for the day tentative plan for paracentesis friday BEATRIZ - nephrology consulted; possible hepatorenal component,. given lasix in ER continue lasix and spironolactone VTE: SCDs Code: full Dispo: home, ~3-4 days, possibly more if bridging to coumadin Time Spent Managing Pts Care (In Minutes): 45
[2021-10-13] MEDS ORDERED: NA CHLORIDE 0.9% 250 ML IV SCH (06:00)
[2021-10-13] MEDS: INSULIN -REGULAR HUMAN 50 UNIT/0.5 ML ML SQ SCH ×4 (07:30→21:00)
[2021-10-13] MEDS ORDERED: SPIRONOLACTONE 25 MG TABLET PO SCH (09:00)
[2021-10-13] MEDS: FUROSEMIDE 40 MG TABLET PO SCH ×2 (09:09→16:01)
[2021-10-13] MEDS: PANTOPRAZOLE 40 MG INJ IVP SCH ×2 (09:09→21:03)
[2021-10-13] MEDS: SPIRONOLACTONE 25 MG TABLET PO SCH ×2 (09:11→16:01)
[2021-10-13] MEDS ORDERED: NA CHLORIDE 0.9% 250 ML ONE (14:46)
--- NOTE | 2021-10-13 15:54 | P.PN ---
Subjective Date of Service: 10/13/21 Chief Complaint: Upper GI bleed today no overnight events Cr slightly elevated cont diuretics paracentecis prn PRBC today Physical exam General: Awkae and alert , NAD, obese HEENT PERRLA, moist mucose membrane neck: supple, no elevated JVD CHEST; CTAB, no wheezes or rales HEART : RRR. Normal S1,2 no murmur or rub Abd: distended, tense, NT Ext: no edema Skin : No rash A/P 1.Acute kidney injury 2/2 ATN +/- HRS1 +/- abd compartment syndrome. Baseline SCr 0.9-1.0. Monitor renal panel. iPTH wnl, no advanced kidney disease at baseline. Cont lasix + tenisha as below. large volume paracentesis prn Monitor I/O, renal panel. 2.Decompensated etoh liver cirrhosis w/ ascites. MELD-Na score 15. Cont lasix 40 mg po bid + tenisha 25 mg po bid. Titrate diuretic dosing based on serum K & SCr. Strictly low Na diet. paracentecis as needed 3.Pulmo embolism. For low-dose therapeutic anticoagulation. GI bleeding failed IVC filter placement 4.Severe anemia w/ GI bleed. Received blood transfusion. EGD done showed 2 AVMs, no bleeding, s/p clipping. Continue PPI. transfuse if Hb<7.0 4.DM2. Mngt per primary team. Total time spent 45 minutes including documentation, reviewing labs , placing orders and discussing with medical team Physical Examination - Vital Signs Temperature: 98.1 F Blood Pressure: 148/81 Pulse: 80 Respirations: 24 Pulse Ox (%): 100
[2021-10-13] MEDS: HYDRALAZINE HCL 20 MG/ML VIAL IV PRN (22:18)
[2021-10-13 22:24] LABS: Hematocrit 26.7 % (39.6-49.0)
[2021-10-14 04:44] LABS: Albumin 2.1 g/dL (3.4-5.0); Phosphorus 2.9 mg/dL (2.5-4.9); Potassium 4.7 mmol/L (3.5-5.1)
--- NOTE | 2021-10-14 05:58 | P.PN ---
Date of Service: 10/14/21 Subjective: Feels about the same as yesterday Mild dyspnea on exertion No significant change in abdominal distention No bowel movement since admission Passing flatus ROS: as noted above, otherwise 10 point ROS negative Physical Exam General: alert, oriented; NAD HEENT: sclera anicteric, normal conjunctiva Respiratory: diminished bilaterally, limited inspiration Cardiovascular: Regular rate/rhythm, trace b/l lower extremity edema Gastrointestinal: distended, mild discomfort, caput medusae in upper abdomen, + ascites Neurological: Normal speech, Normal strength at 5/5 x4 extr, Normal affect SCDs in place Problem List: Microcytic anemia secondary to acute blood loss anemia/upper GI bleed with underlying LÓPEZ Alcoholic cirrhosis of liver with ascites/abdominal distention Diabetes mellitus type [id number]-gwpokcvyg/noncompliant History of hypertension Acute kidney injury PE VQ scan: moderate probability for PEs; Pulmonology consulted. patient high risk for anticoagulation given cirrhosis, occult+, anemia pulm recommended no anticoagulation given risk and attempt IVC filter IVC filter unable to be placed due to techical difficulties / concern for thrombus in ivc discussed again with pulm and GI on 10/12, recommend anticoagulation vs aspirin 325 mg daily patient is uninsured, would need to be bridged to coumadin developed small R hematoma after ivc filter attempt, no significant change appreciated on exam hgb <7, patient had some blood loss from IVC filter attempt, hematoma, blood draws, low production, from comorbidities occult positive in ED hgb decreased from baseline of ~8.5-9; down to 6.6, 1u PRBC given, with improvement, patient felt better / back down below 7 again; transfused 2u PRBC improved, stable; no evidence of bleeding GI consulted - EGD done 10/12, 2 AVMs noted, no bleeding, s/p clips; ok from EGD standpoint for possible anticoagulation iron deficient, chronic, likely secondary to decreased absorption/intake, and occult bleed liver cirrhosis secondary to alcohol; significant alcohol history has not seen a physician for this issue, reports swelling worsening over last ~1-2 months paracentesis ordered on Friday - Unfortunately paracentesis not done - no paracentesis tray available, and by the time they were received, radiologist had left for the day Paracentesis ordered for tomorrow BEATRIZ - nephrology consulted; possible hepatorenal component,. given lasix in ER continue lasix and spironolactone VTE: SCDs Code: full Dispo: home, ~3-4 days, might need to be bridged to coumadin Time Spent Managing Pts Care (In Minutes): 45
[2021-10-14 06:27] LABS: Hematocrit 26.2 % (39.6-49.0); MCV 70.3 fL (80-100); MPV 8.4 fL (7.6-11.3); RBC Red Blood Cell Count 3.74 M/uL (4.33-5.43)
[2021-10-14] MEDS: INSULIN -REGULAR HUMAN 50 UNIT/0.5 ML ML SQ SCH ×4 (07:30→20:47)
[2021-10-14] MEDS: PANTOPRAZOLE 40 MG INJ IVP SCH ×2 (09:03→20:47)
[2021-10-14] MEDS: SPIRONOLACTONE 25 MG TABLET PO SCH ×2 (09:03→16:06)
[2021-10-14] MEDS: FUROSEMIDE 40 MG TABLET PO SCH ×2 (09:04→16:06)
--- NOTE | 2021-10-14 14:34 | P.PN ---
Subjective Date of Service: 10/14/21 Chief Complaint: Upper GI bleed today no overnight events Cr stable cont diuretics paracentecis prn S/P prbc yesterday Physical exam General: Awkae and alert , NAD, obese HEENT PERRLA, moist mucose membrane neck: supple, no elevated JVD CHEST; CTAB, no wheezes or rales HEART : RRR. Normal S1,2 no murmur or rub Abd: distended, tense, NT Ext: no edema Skin : No rash A/P 1.Acute kidney injury 2/2 ATN +/- HRS1 +/- abd compartment syndrome. Baseline SCr 0.9-1.0. Monitor renal panel. iPTH wnl, no advanced kidney disease at baseline. Cont lasix + tenisha as below. large volume paracentesis prn Monitor I/O, renal panel. 2.Decompensated etoh liver cirrhosis w/ ascites. MELD-Na score 15. Cont lasix 40 mg po bid + tenisha 25 mg po bid. Titrate diuretic dosing based on serum K & SCr. Strictly low Na diet. paracentecis as needed 3.Pulmo embolism. For low-dose therapeutic anticoagulation. GI bleeding failed IVC filter placement 4.Severe anemia w/ GI bleed. Received blood transfusion. EGD done showed 2 AVMs, no bleeding, s/p clipping. Continue PPI. transfuse if Hb<7.0 4.DM2. Mngt per primary team. Total time spent 45 minutes including documentation, reviewing labs , placing orders and discussing with medical team Physical Examination - Vital Signs Temperature: 97.6 F Blood Pressure: 153/77 Pulse: 78 Respirations: 26 Pulse Ox (%): 98
[2021-10-15] MEDS: ACETAMINOPHEN 500 MG TAB PO PRN (00:03)
[2021-10-15] MEDS: HYDRALAZINE HCL 20 MG/ML VIAL IV PRN ×2 (01:29→12:44)
[2021-10-15 06:15] LABS: Hematocrit 30.2 % (39.6-49.0); MCV 70.5 fL (80-100); MPV 8.3 fL (7.6-11.3); RBC Red Blood Cell Count 4.28 M/uL (4.33-5.43)
[2021-10-15 06:27] LABS: Albumin 2.4 g/dL (3.4-5.0); Bilirubin Direct 0.2 mg/dL (0-0.2); Bilirubin Total 0.7 mg/dL (0.2-1.0); Phosphorus 3.3 mg/dL (2.5-4.9); Potassium 4.3 mmol/L (3.5-5.1); Protein, Total 7.1 g/dL (6.4-8.2)
--- NOTE | 2021-10-15 06:40 | P.PN ---
Date of Service: 10/15/21 Subjective: ROS: as noted above, otherwise 10 point ROS negative Physical Exam General: alert, oriented; NAD HEENT: sclera anicteric, normal conjunctiva Respiratory: diminished bilaterally, limited inspiration Cardiovascular: Regular rate/rhythm, trace b/l lower extremity edema Gastrointestinal: distended, mild discomfort, caput medusae in upper abdomen, + ascites Neurological: Normal speech, Normal strength at 5/5 x4 extr, Normal affect SCDs in place Problem List: Microcytic anemia secondary to acute blood loss anemia/upper GI bleed with underlying LÓPEZ Alcoholic cirrhosis of liver with ascites/abdominal distention Diabetes mellitus type [id number]-asjyrxyir/noncompliant History of hypertension Acute kidney injury PE VQ scan: moderate probability for PEs; Pulmonology consulted. patient high risk for anticoagulation given cirrhosis, occult+, anemia pulm recommended no anticoagulation given risk and attempt IVC filter IVC filter unable to be placed due to techical difficulties / concern for thrombus in ivc discussed again with pulm and GI on 10/12, recommend anticoagulation vs aspirin 325 mg daily patient is uninsured, would need to be bridged to coumadin developed small R hematoma after ivc filter attempt, no significant change appreciated on exam hgb <7, patient had some blood loss from IVC filter attempt, hematoma, blood draws, low production, from comorbidities occult positive in ED hgb decreased from baseline of ~8.5-9; down to 6.6, 1u PRBC given, with improvement, patient felt better 8/6 back down below 7 again; transfused 2u PRBC improved, stable; no evidence of bleeding GI consulted - EGD done 10/12, 2 AVMs noted, no bleeding, s/p clips; ok from EGD standpoint for possible anticoagulation iron deficient, chronic, likely secondary to decreased absorption/intake, and occult bleed liver cirrhosis secondary to alcohol; significant alcohol history has not seen a physician for this issue, reports swelling worsening over last ~1-2 months paracentesis ordered on Friday - Unfortunately paracentesis not done - no paracentesis tray available, and by the time they were received, radiologist had left for the day Paracentesis ordered for tomorrow BEATRIZ - nephrology consulted; possible hepatorenal component,. given lasix in ER continue lasix and spironolactone VTE: SCDs Code: full Dispo: home, ~3-4 days, might need to be bridged to coumadin Time Spent Managing Pts Care (In Minutes): 45
[2021-10-15] MEDS: INSULIN -REGULAR HUMAN 50 UNIT/0.5 ML ML SQ SCH ×3 (07:30→15:37)
[2021-10-15] MEDS: FUROSEMIDE 40 MG TABLET PO SCH (07:43)
[2021-10-15] MEDS: SPIRONOLACTONE 25 MG TABLET PO SCH (07:43)
[2021-10-15] MEDS: PANTOPRAZOLE 40 MG INJ IVP SCH (08:04)
--- NOTE | 2021-10-15 11:02 | RAD REPORT ---
EXAM DESCRIPTION: US - Paracentesis Proc Guidance - 10/15/2021 9:37 am CLINICAL HISTORY: Ascites, cirrhosis COMPARISON: CT abdomen and pelvis October 10 TECHNIQUE: The patient presents for ultrasound-guided paracentesis. The procedure, risks and altern atives were discussed with the patient in detail. Oral and written consent were obtained. Time out p rocedure was performed. The patient had no contraindicated allergy or medication history. PT, INR, a nd platelet values within acceptable limits. Preliminary sonographic evaluation identified right lower quadrant access site. The skin and deeper tissues were anesthetized with 1 percent lidocaine. Under direct sonographic visualization, a parace ntesis catheter was advanced into the peritoneal cavity. Approximately 15 mL of ascites was removed a nd retained for laboratory studies requested by referring service. Large volume drainage was initiate d. Approximately 8.5 liters of ascites removed. At the conclusion of the procedure, catheter was withdrawn and a bandage placed at the puncture site. Postprocedure care and precaution instructions were given to the patient. Patient tolerated procedu re well without complication. Patient was transferred back to the floor with additional postprocedure monitoring orders as well is orders for albumin. IMPRESSION: Ultrasound-guided paracentesis as detailed.
[2021-10-15] MEDS ORDERED: ALBUMIN HUMAN 25% 100 ML IV ONE (12:08)
--- NOTE | 2021-10-15 15:59 | P.DS ---
Admission Date: 10/10/21 Discharge Date: 10/15/21 Disposition: ROUTINE DISCHARGE Discharge Condition: GOOD Reason for Admission: Upper GI bleed Consultations: GI - Dr. Sahu Nephrology - Dr. Muñoz / Tomasa / Paty Brief History of Present Illness: 66-year-old male with history of diabetes mellitus type 2, hypertension, LÓPEZ, cirrhosis liver secondary to alcohol abuse Presented to the ED due to progressively worsening SOB. He reports increasing dyspnea on exertion over the course of the last 1 month or so as well as increasing abdominal distention. Patient was evaluated in the emergency depa rtment his labs were significant for acute kidney injury, elevated BNP, elevated D-dimer, microcytic anemia and FOBT positive with soft brown stool. Patient denies any hematochezia, hematemesis or melena. ED provider discussed case with gastroenterology who will be happy to consult. We will need to admit patient for acute blood loss anemia, upper GI bleed, ascites/abdominal distention and acute kidney injury. Hospital Course: Problem List: Microcytic anemia secondary to acute blood loss anemia/upper GI bleed with underlying LÓPEZ Alcoholic cirrhosis of liver with ascites/abdominal distention h/o Diabetes mellitus type [id number] History of hypertension Acute kidney injury, CKD3 Pulmonary embolism Patient was found to have large ascites which is new for the patient. Evaluation of his liver by CT and ultrasound was consistent with cirrhosis. GI was consulted due to occult positive and new ascites / concern for cirrhosis. Patient underwent EGD and noted to have 2 non-bleeding AVMs which were clipped. Patient started on spironolactone and lasix. He had Cr: 1.8-1.9 which is higher than it was ~1 year ago. Nephrology was consulted and his renal function remained stable in this range, which may well be his new baseline. He underwent ~8.5L paracentesis on 10/15 which improved his symptoms as well. He received albumin following the procedure. Patient remained stable on room air since admission. Patient's d-dimer was elevated in the ER and underwent VQ scan. CT avoided due to renal function and risk of renal failure. V/W scan: moderate probability for multiple small pulmonary emboli Pulmonology was consulted and after much discussion, it was recommended to avoid anticoagulation and treat with aspirin 81mg daily. Due to patient's cirrhosis and CKD increasing risk of bleed, with +hemoccult stool. General surgery, Dr. Lopez, was consulted for IVC filter placement, however their were technical difficulties, unable to pass the dilator in the groin and unable to pass wire from the right IJ. There was concern that the inability to advance the wire any further was secondary to possible thrombus. Due to this concern / risk, the procedure was aborted. Patient did have slight bleeding at R access site, and developed a small hematoma which was stable. Multiple discussions were had with consultants and family. Recommended 81mg daily aspirin. Patient received 1u PRBC on admission, and 2uPRBC on 10/13. Hemoglobin remained stable. No evidence of bleed Prescribed: spironolactone, lasix, protonix Follow up - PCP within 1 week GI in ~3-4 weeks Physical Exam General: alert, oriented; NAD HEENT: sclera anicteric, normal conjunctiva Respiratory: diminished bilaterally, clear bilaterally, nonlabored on room air Cardiovascular: Regular rate/rhythm, no edema Gastrointestinal: soft, +ascites, nontender Neurological: Normal speech, Normal strength at 5/5 x4 extr, Normal affect Vital Signs/Physical Exam: Temp Pulse Resp BP Pulse Ox 97.7 F 82 18 183/81 H 99 10/15/21 12:00 10/15/21 12:00 10/15/21 12:00 10/15/21 12:00 10/15/21 12:00 Laboratory Data at Discharge: WBC 6.7 K/uL (4.3-10.9) D 10/15/21 05:47 Hgb 10.0 g/dL (13.6-17.9) L 10/15/21 05:47 Hct 30.2 % (39.6-49.0) L D 10/15/21 05:47 Plt Count 212 K/uL (152-406) D 10/15/21 05:47 PT 14.1 SECONDS (9.5-12.5) H 10/12/21 04:09 INR 1.28 10/12/21 04:09 Sodium 139 mmol/L (136-145) 10/15/21 05:47 Potassium 4.3 mmol/L (3.5-5.1) 10/15/21 05:47 BUN 33 mg/dL (7-18) H 10/15/21 05:47 Creatinine 1.91 mg/dL (0.55-1.3) H 10/15/21 05:47 Glucose 129 mg/dL (74-106) H 10/15/21 05:47 Uric Acid 9.6 mg/dL (3.5-7.2) H 10/12/21 04:09 Phosphorus 3.3 mg/dL (2.5-4.9) 10/15/21 05:47 Magnesium 2.3 mg/dL (1.8-2.4) 10/13/21 05:02 Total Bilirubin 0.7 mg/dL (0.2-1.0) 10/15/21 05:47 AST 15 U/L (15-37) 10/15/21 05:47 ALT 14 U/L (12-78) 10/15/21 05:47 Alkaline Phosphatase 96 U/L (45-117) 10/15/21 05:47 Home Medications: Aspirin [Aspirin EC 81 MG] 81 mg PO DAILY 30 Days #30 tab 10/15/21 Furosemide [Lasix*] 40 mg PO BIDL 30 Days #60 tab 10/15/21 Pantoprazole Sodium [Protonix] 40 mg PO BID 30 Days #60 tab 10/15/21 Spironolactone [Aldactone*] 25 mg PO BID@0900,1700 30 Days #60 tab 10/15/21 New Medications: Spironolactone [Aldactone*] 25 mg PO BID@0900,1700 30 Days #60 tab Aspirin [Aspirin EC 81 MG] 81 mg PO DAILY 30 Days #30 tab Furosemide [Lasix*] 40 mg PO BIDL 30 Days #60 tab Pantoprazole Sodium [Protonix] 40 mg PO BID 30 Days #60 tab Physician Discharge Instructions: Problem List: Microcytic anemia secondary to acute blood loss anemia/upper GI bleed with underlying LÓPEZ Alcoholic cirrhosis of liver with ascites/abdominal distention h/o Diabetes mellitus type [id number] History of hypertension Acute kidney injury, CKD3 Pulmonary embolism Patient was found to have large ascites which is new for the patient. Evaluation of his liver by CT and ultrasound was consistent with cirrhosis. GI was consulted due to occult positive and new ascites / concern for cirrhosis. Patient underwent EGD and noted to have 2 non-bleeding AVMs which were clipped. Patient started on spironolactone and lasix. He had Cr: 1.8-1.9 which is higher than it was ~1 year ago. Nephrology was consulted and his renal function remained stable in this range, which may well be his new baseline. He underwent ~8.5L paracentesis on 10/15 which improved his symptoms as well. He received albumin following the procedure. Patient remained stable on room air since admission. Patient's d-dimer was elevated in the ER and underwent VQ scan. CT avoided due to renal function and risk of renal failure. V/W scan: moderate probability for multiple small pulmonary emboli Pulmonology was consulted and after much discussion, it was recommended to avoid anticoagulation and treat with aspirin 81mg daily. Due to patient's cirrhosis and CKD increasing risk of bleed, with +hemoccult stool. General surgery, Dr. Lopez, was consulted for IVC filter placement, however their were technical difficulties, unable to pass the dilator in the groin and unable to pass wire from the right IJ. There was concern that the inability to advance the wire any further was secondary to possible thrombus. Due to this concern / risk, the procedure was aborted. Patient did have slight bleeding at R access site, and developed a small hematoma which was stable. Multiple discussions were had with consultants and family. Recommended 81mg daily aspirin. Patient received 1u PRBC on admission, and 2uPRBC on 10/13. Hemoglobin remained stable. No evidence of bleed Prescribed: spironolactone, lasix, protonix aspirin 81mg Follow up - PCP within 1 week; recommend repeat CBC/CMP (bloodwork) GI in ~3-4 weeks Nephrology in a few weeks Activity: Ad jossie Followup: NONE,NONE [Primary Care Provider] - Time spent managing pt's care (in minutes): 45
[2021-10-15 16:12] LABS: Body Fluid Source PERITONEAL; Color of fluid Brown (COLORLESS)
[2021-10-15 16:13] LABS: Appearance TURBID (CLEAR)
[2021-10-15 16:42] LABS: Body Fluid WBC 628 /mm^3
[2021-10-15 17:21] VITALS: BP 124/63; TEMP 98.6
--- NOTE | 2021-10-16 02:45 | PN ---
Date of Progress Note: 10/15/2021 Chief Complaint: Upper GI bleeding, ascites, hepatorenal syndrome. History Of Present Illness: Patient remains hemodynamically stable. He is on diuretics. He underwe nt paracentesis today. Yesterday, he was evaluated for paracentesis. The renal function remains at stable range at baseline. The patient received packed red blood cell transfusion for anemia and had a workup done afterwards to rule out active blood loss. Review of Systems: Denies fever, chills. Physical Examination: Lungs: Clear to auscultation bilaterally. Heart: S1, S2. Abdomen: Soft, benign. Extremities: No edema. Impression And Plan: 1.Acute kidney injury secondary to acute tubular necrosis in setting of cardiorenal syndrome with ac tive ascites. Baseline creatinine level is 0.9-1.0. Patient was found to have acute kidney injury. He remains nonoliguric. The patient was found to have elevated PTH. The patient will continue Lasi x and spironolactone for volume control. He underwent paracentesis and received IV albumin. 2.Decompensated alcoholic liver cirrhosis with ascites per primary team. Patient will continue Lasi x and spironolactone. Follow up in outpatient setting. 3.History of severe anemia with gastrointestinal bleeding. The patient received blood transfusion. 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 MEHDI/PABLOL Voice ID: [id number] Report ID: [id number]
[2021-10-16 16:31] LABS: Albumin, (SPE) 2.3 g/dL (3.8-4.8); Alpha-1-Globulins 0.4 g/dL (0.2-0.3); Alpha-2-Globulins 0.6 g/dL (0.5-0.9); Gamma Globulins 1.5 g/dL (0.8-1.7); INTERPRETATION REPORT
[2021-10-19 20:27] LABS: TOTAL PROTEIN,PERITONEAL FLUID 3.4 g/dL
== END 2021-10-15 16:30 | disposition home or self-care (01) | DRG 377 ==
LOC: ER 16:44 → ERHOLD 20:43 → 2ND 10-11 10:09
PROVIDERS: ADMIT Hospitalist; ATTEND Hospitalist
PROC: 30233N1 Transfusion of Nonautologous Red Blood Cells into Peripheral Vein, Percutaneous Approach (ICD-10-PCS; 2021-10-10)
PROC: 0W3P8ZZ Control Bleeding in Gastrointestinal Tract, Via Natural or Artificial Opening Endoscopic (ICD-10-PCS; 2021-10-11)
PROC: 3E0G8GC Introduction of Other Therapeutic Substance into Upper GI, Via Natural or Artificial Opening Endoscopic (ICD-10-PCS; principal; 2021-10-11 10:15)
PROC: 0W9G3ZX Drainage of Peritoneal Cavity, Percutaneous Approach, Diagnostic (ICD-10-PCS; 2021-10-15)
DX: K31.811 Angiodysplasia of stomach and duodenum with bleeding (principal); I26.99 Other pulmonary embolism without acute cor pulmonale; N17.0 Acute kidney failure with tubular necrosis; D62 Acute posthemorrhagic anemia; E87.1 Hypo-osmolality and hyponatremia; K70.31 Alcoholic cirrhosis of liver with ascites; F10.10 Alcohol abuse, uncomplicated; I12.9 Hypertensive chronic kidney disease with stage 1 through stage 4 chronic kidney disease, or unspecified chronic kidney disease; E11.22 Type 2 diabetes mellitus with diabetic chronic kidney disease; N18.30 Chronic kidney disease, stage 3 unspecified; D50.9 Iron deficiency anemia, unspecified; E11.40 Type 2 diabetes mellitus with diabetic neuropathy, unspecified; Z53.8 Procedure and treatment not carried out for other reasons; Z91.19 Patient's noncompliance with other medical treatment and regimen; Z20.822 Contact with and (suspected) exposure to COVID-19
CPT/HCPCS: 36415; 36430; 49083; 71045; 74176; 76000; 78582; 80048; 80053; 80069; 80076; 81001; 82042; 82140; 82272; 82550; 82728; 82945; 82947; 83036; 83540; 83615; 83735; 83880; 83970; 84157; 84165; 84300; 84443; 84466; 84484; 84550; 85014; 85018; 85025; 85027; 85379; 85610; 86850; 86900; 86901; 87070; 87086; 87088; 87811; 89050; 93005; 93970; 96374; 96375; 99285; A9540; A9558; C1769; C9113; J0171; J0360; J0690; J1644; J1940; J2250; J2405; J2704; J7030; J7050; P9016; P9047

== ENCOUNTER 2022-07-20 10:54 | Emergency (ER) | payer SELFPAY ==
--- OUTSIDE RECORDS SUMMARY | 2022-07-20 11:00 | XMS REPORT | Continuity of Care Document ---
:1955 Author Organization [facility] t Address [address] [place] [address] [address] [place] [address] Care Team Providers Name Role Phone Chica Villalba Primary Care Physician LEILA CHAPMAN Attending Clinician Unavailable Leila Chapman MD Attending Clinician Doctor Unassigned, [place] Attending Clinician Unavailable JOSÉ MIGUEL HUMPHRIES Attending Clinician Unavailable JOSÉ MIGUEL HUMPHRIES Attending Clinician Unavailable José Miguel Humphries DO Attending Clinician JEREMIAS MOHR Attending Clinician Unavailable JEREMIAS MOHR Attending Clinician Unavailable GEETA YOUNG Attending Clinician Unavailable Bucky Gloria MD Attending Clinician Geeta Young DO Attending Clinician GINI EAST Attending Clinician Unavailable Gini East MD Attending Clinician KEV NGUYEN Attending Clinician Unavailable Kev Nguyen DO Attending Clinician Lila Gabriel Attending Clinician JAQUI ROMANO Attending Clinician Unavailable Samuel Jennings MD Attending Clinician Jaqui Martin Attending Clinician MAGNOLIA GIBBS Attending Clinician Unavailable Magnolia Gibbs NP Attending Clinician Analia Fragoso LVN Attending Clinician AUGUSTIN JEAN Attending Clinician Unavailable Chilo Oliva MD Attending Clinician Augustin Jean MD Attending Clinician MIKE HOFFMAN Attending Clinician Unavailable Mike Hoffman MD Attending Clinician ALISHA CHA Attending Clinician Unavailable Alisha Cha DO Attending Clinician JONNA LANCE Attending Clinician Unavailable Jonna Lance DO Attending Clinician ANNABELLE RAMIREZ Attending Clinician Unavailable Annabelle Shore Attending Clinician GEETA YOUNG Admitting Clinician Unavailable Geeta Young DO Admitting Clinician JAQUI ROMANO Admitting Clinician Unavailable AUGUSTIN JEAN Admitting Clinician Unavailable Augustin Jean MD Admitting Clinician ALISHA CHA Admitting Clinician Unavailable Alisha Cha DO Admitting Clinician Payers Payer Name Policy Type Policy Number Effective Date Expiration Date S ource Problems Condition Condition Condition Status Onset Resolution Last Treating Co mments Source Name Details Category Date Date Treatment Clinician Date Chronic Chronic Disease Active Univers hepatitis hepatitis 3-30 ity of C without C without 00:00: a s hepatic hepatic 00 Medical coma coma Branch 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 00:00: [place] disease disease 00 Medical Branch Ascites Ascites Disease Active 2021-03 Univers 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 ity of alcoholic alcoholic 00:[place] cirrhosis cirrhosis 00 [facility] rosario Branch Alcoholic Alcoholic Disease Active 2021-03 Uni vers cirrhosis cirrhosis 0-18 ity of of liver of liver 00:00: [place] with with 00 Medical ascites ascites Branch 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 liver 9-30 ity of 00:00: [place] 00 Medical Branch Tense Tense Disease Active Univers ascites ascites 12-07 ity of 00:00: [place] [facility] Branch No known No known Disease Unive rs active active ity of problems problems [facility] Branch Allergies, Adverse Reactions, Alerts Allergy Allergy Status Severity Reaction(s) Onset Inactive Treating Comm ents Source Name Type Date Date Clinician NO KNOWN Drug Active Univers ALLERGIE Class ity of S [place] [facility] Social History Social Habit Start Date Stop Date Quantity Comments Source History SDOH Social Unive rsity of Connections Get [place] Med ical Together Branch History SDOH Social Unive rsity of Connections [facility] Medical Branch History SDOH Social Unive rsity of Connections [place] [facility] Membership Branch History SDOH Social Unive rsity of Connections [place] [facility] Meetings Branch History of tobacco Cigarette Smoker University of use [facility] Branch Exposure to 2022-05-26 2022-06-05 Not sure University of SARS-CoV-2 (event) 00:00:00 06:46:00 [facility] Branch Alcohol intake 2022-06-05 2022-06-05 Current drinker Unive rsity of 00:00:00 00:00:00 of alcohol [place] Medical (finding) Branch History SDIA 2022-04-11 2022-04-11 1 University o f Alcohol Frequency 00:00:00 00:00:00 [place] M edical Branch History SDOH 2022-04-11 2022-04-11 0 University o f Alcohol Std Drinks 00:00:00 00:00:00 [place] [facility] History SDOH 2022-04-11 2022-04-11 1 University o f Alcohol Binge 00:00:00 00:00:00 [place] Medic al Branch History SDOH Social 2022-04-11 2022-04-11 5 Unive rsity of Connections Phone 00:00:00 00:00:00 [place] M edical Branch History SDOH Social 2022-04-11 2022-04-11 6 Unive rsity of Connections Living 00:00:00 00:00:00 [place] [facility] History SDOH 2022-04-11 2022-04-11 0 University o f Physical Activity 00:00:00 00:00:00 [place] M edical DPW Branch History SDIA 2022-04-11 2022-04-11 0 University o f Physical Activity 00:00:00 00:00:00 [facility] edical MPS Branch History SDOH 2022-04-11 2022-04-11 5 University o f Financial 00:00:00 00:00:00 [place] [facility] History SDOH Food 2022-04-11 2022-04-11 1 Univers ity of Worry 00:00:00 00:00:00 [place] [facility] History SDOH Food 2022-04-11 2022-04-11 1 Univers ity of Scarcity 00:00:00 00:00:00 [place] [facility] History SDOH 2022-04-11 2022-04-11 2 University o f Transport Med 00:00:00 00:00:00 [place] [facility] al Branch History [facility] 2022-04-11 2022-04-11 2 Marks o Transport Non-Med 00:00:00 00:00:00 [facility] edical Branch Tobacco use and 2021-12-07 2021-12-07 Smokeless Universit y of exposure 00:00:00 00:00:00 tobacco non-user [facility] dical Branch Education 2021-12-07 2021-12-07 14 University 00:00:00 00:00:00 [facility] Tobacco Comment 2021-12-07 2021-12-07 Quit 3-4 years Unive rsity of 00:00:00 00:00:00 [facility] Sex [birth year] Universit y of 00:00:00 00:00:00 [facility] Smoking Status Start Date Stop Date Source Tobacco smoking University [facility] xa consumption unknown Medical Bran ch Ex-smoker 2021-12-07 00:00:00 2021-12-07 University o [facility] 00:00:00 Medical Branch Medications Ordered Filled Start Stop Current Ordering Indication Dosage Frequency Signature Comments Components Source Medication Medication Date Date Medication? Clinician (SIG) Name Name pantoprazol Yes 40mg Take 1 Univ ers e 40 mg EC 3-30 tablet by ity of tablet 14:07: mouth in [place] [address] the Medical morning Branch and 1 tablet in the evening. pantoprazol Yes 40mg Take 1 Univ ers e 40 mg EC 3-30 tablet by ity of tablet 14:07: mouth in [place] [address] the Medical morning Branch and 1 tablet in the evening. pantoprazol 2023-0 Yes 40mg Take 1 Univ ers e 40 mg EC 3-30 tablet by ity of tablet 14:07: mouth in [place] 56 the Medical morning Branch and 1 tablet in the evening. furosemide 2023-0 Yes 40mg Take 1 Unive rs 40 mg 3-30 tablet by ity of tablet 00:00: mouth [place] 00 every Medical morning Branch and evening. lactulose 2023-0 Yes [id number] 30mL Take 30 mL Univers 10 gram/15 3-30 by mouth ity o f mL solution 00:00: in the morning. Medical Branch sulfamethox 2023-0 Yes [id number] 1{tbl} Take 1 Univers azole-trime 3-30 tablet by ity of thoprim 00:00: mouth in [place] (BACTRIM) 00 the Medical 400-80 mg morning. Branch per tablet spironolact 2023-0 Yes 200mg Take 8 Uni vers one 25 mg 3-30 tablets by ity of tablet 00:00: mouth in [place] 00 the Medical morning. Branch furosemide 2023-0 Yes 40mg Take 1 Unive rs 40 mg 3-30 tablet by ity of tablet 00:00: mouth [place] 00 every Medical morning Branch and evening. lactulose 2023-0 Yes [id number] 30mL Take 30 mL Univers 10 gram/15 3-30 by mouth ity o f mL solution 00:00: in the morning. Medical Branch sulfamethox 2023-0 Yes [id number] 1{tbl} Take 1 Univers azole-trime 3-30 tablet by ity of thoprim 00:00: mouth in [place] (BACTRIM) 00 the Medical 400-80 mg morning. Branch per tablet spironolact 2023-0 Yes 200mg Take 8 Uni vers one 25 mg 3-30 tablets by ity of tablet 00:00: mouth in [place] 00 the Medical morning. Branch furosemide 2023-0 Yes 40mg Take 1 Unive rs 40 mg 3-30 tablet by ity of tablet 00:00: mouth [place] 00 every Medical morning Branch and evening. lactulose 2023-0 Yes [id number] 30mL Take 30 mL Univers 10 gram/15 3-30 by mouth ity o f mL solution 00:00: in the morning. Medical Branch sulfamethox 2023-0 Yes [id number] 1{tbl} Take 1 Univers azole-trime 3-30 tablet by ity of thoprim 00:00: mouth in [place] (BACTRIM) 00 the Medical 400-80 mg morning. Branch per tablet spironolact Yes 200mg Take 8 Uni vers one 25 mg 3-30 tablets by ity of tablet 00:00: mouth in [place] 00 the Medical morning. Branch traMADoL 50 0 Yes [id number] 50mg Take 1 Univ ers mg tablet 3-29 tablet by ity o f 00:00: mouth [place] 00 every 8 Medical (eight) Branch hours as needed for Pain (scale 1-3). Indication s: acute pain traMADoL 50 Yes [id number] 50mg Take 1 Univ ers mg tablet 3-29 tablet by ity o f 00:00: mouth [place] 00 every 8 Medical (eight) Branch hours as needed for Pain (scale 1-3). Indication s: acute pain traMADoL 50 Yes [id number] 50mg Take 1 Univ ers mg tablet 3-29 tablet by ity o f 00:00: mouth [place] 00 every 8 Medical (eight) Branch hours as needed for Pain (scale 1-3). Indication s: acute pain traMADoL 50 Yes [id number] 50mg Take 1 Univ ers mg tablet 3-29 tablet by ity o f 00:00: mouth [place] 00 every 8 Medical (eight) Branch hours as needed for Pain (scale 1-3). Indication s: acute pain traMADoL 50 Yes [id number] 50mg Take 1 Univ ers mg tablet 3-29 tablet by ity o f 00:00: mouth [place] 00 every 8 Medical (eight) Branch hours as needed for Pain (scale 1-3). Indication s: acute pain albumin 2022-0 2022- No 25g 25 g, IV Unive rs (ALBUMINAR 05-31 03-25 Infusion, ity of 25%) 25 % 22:08: 00:02 ONCE, 1 [place] injection 00 :00 dose, On Medica l 25 g Fri Branch 05/31/22 at 1715, 100 mL
Marge cation: HEPATORENA L SYNDROME (DIAGNOSIS )
Comme nts: Dosin-8 g/L of ascitic fluid removed lactulose 2023-0 Yes 30mL Take 30 mL Univers 10 gram/15 3-24 by mouth ity o f mL oral 00:00: in the [place] solution 00 morning. Medical Branch lactulose 3-0 Yes [id number] 30mL Take 30 mL Univers 10 gram/15 3-24 by mouth ity o f mL oral 00:00: in the [place] solution 00 morning. Medical Branch lactulose 3-0 Yes [id number] 30mL Take 30 mL Univers 10 gram/15 3-24 by mouth ity o f mL oral 00:00: in the [place] solution 00 morning. Medical Branch lactulose 2022-0 3- No [id number] 30mL Take 30 mL Univers 10 gram/15 3-24 03-30 by mouth ity of mL oral 00:00: 00:00 in the [place] solution 00 :00 morning. Medical Branch lactulose 2022-0 3- No [id number] 30mL Take 30 mL Univers 10 gram/15 3-24 03-30 by mouth ity of mL oral 00:00: 00:00 in the [place] solution 00 :00 morning. Medical Branch lactulose 2022-0 3- No [id number] 30mL Take 30 mL Univers 10 gram/15 3-24 03-30 by mouth ity of mL oral 00:00: 00:00 in the [place] solution 00 :00 morning. Medical Branch pantoprazol 3-0 Yes 40mg Take 40 mg Univers e 40 mg EC 2-02 by mouth ity o f tablet 17:45: in the [place] [address] morning Medical and 40 mg Branch in the evening. pantoprazol 3-0 Yes 40mg Take 40 mg Univers e 40 mg EC 2-02 by mouth ity o f tablet 17:45: in the [place] [address] morning Medical and 40 mg Branch in the evening. pantoprazol 3-0 Yes 40mg Take 40 mg Univers e 40 mg EC 2-02 by mouth ity o f tablet 17:45: in the [place] [address] morning Medical and 40 mg Branch in the evening. pantoprazol 2023-0 Yes 40mg Take 40 mg Univers e 40 mg EC 2-02 by mouth ity o f tablet 17:45: in the [place] [address] morning Medical and 40 mg Branch in the evening. cefTRIAXone 3-0 3- No 2000mg 2,000 mg, Univers (ROCEPHIN) 2-02 02-09 Intravenou it y of 2,000 mg in 16:00: 15:59 [place], Q24H [place] water for 00 :00 ABX, 7 Medical injection, doses, Branch sterile 20 First dose mL SIVP (after syringe last reorder) on Fri04/11/22 at 1000, Last dose on Fri04/17/22 at 1000, 20 mL
Reas on for Anti-Infec tive: Documented Infection< br>Documen ros Infection Site: Abdominal< br>Duratio n of Therapy: 7 days albumin 2022- No 12.5g 12.5 g, IV Un piedad (ALBUMINAR 04-11 Infusion, ity of 25%) 25 % 15:30: 19:38 ONCE, 1 [place] injection 00 :00 dose, On Medica l 12.5 g [facility] 04/11/22 Branch at 0930, 100 mL
Marge cation: HEPATORENA L SYNDROME (DIAGNOSIS )
Comme nts: Dosin-8 g/L of ascitic fluid removed furosemide 2022- No 40mg Take 40 mg Univers 40 mg 04-11 by mouth ity of tablet 15:02: 00:00 every [place] 42 :00 morning Medical and Branch evening. spironolact 2022- No 25mg Take 25 mg Univers one 04-11 by mouth ity of (ALDACTONE) 15:02: 00:00 in the [place] as 25 mg 42 :00 morning. Medical tablet Branch spironolact Yes 25mg 25 mg, Univ ers one 04-11 Oral, ity of (ALDACTONE) 15:00: DAILY, [place] tablet 25 00 First dose Medi rosario mg on [facility] Branch 04/11/22 at 0900, Until Discontinu ed, Routine heparin Yes 5000U 5,000 Univers (porcine) 04-11 Units, ity of injection 14:00: [place]cut[place]o [place] 5,000 Units 00 us, Q12H, Med ical First dose Branch on [facility] 04/11/22 at 0800, Until Discontinu ed, Routine pantoprazol Yes 40mg 40 mg, Univ ers e 04-11 Oral, BID, ity of (PROTONIX) 14:00: First dose [place] EC tablet 00 on [facility] Medical 40 mg 04/11/22 at Branch 0800, Until Discontinu ed, Routine acetaminoph Yes 650mg 650 mg, Un piedad en 04-11 Oral, ity of (TYLENOL) 02:53: Q6HPRN, [place] tablet 650 20 Starting Medic al mg on Fri Branch 04/10/22 at 2053, Until Discontinu ed, Routine, Pain (scale 1-3) sulfamethox 2022- No [id number] 1{tbl} Take 1 Univers azole-trime 04-11 tablet by i ty of thoprim 00:00: 05:59 mouth in [place] (BACTRIM 00 :00 the Medical DS) 800-160 morning Branc h mg per for 30 tablet days. furosemide 2022- No [id number] 40mg Take 1 Univers 40 mg 04-11 tablet by ity of tablet 00:00: 05:59 mouth [place] 00 :00 every Medical morning Branch and evening for 30 days. spironolact 2022- No [id number] 200mg Take 2 Univers one 04-1104 tablets by ity of (ALDACTONE) 00:00: 05:59 [place] 100 mg 00 :00 the Medical tablet morning Branch for 30 days. furosemide 2022- No 40mg Take 1 Univ ers 40 mg 03-20 tablet by ity of tablet 00:00: 00:00 mouth. [place] 00 :00 Medical Branch spironolact 2022-0 3- No 25mg Take 1 Uni vers one 25 mg 03-20 tablet by ity of tablet 00:00: 00:00 mouth. [place] 00 :00 Medical Branch furosemide 2022-0 3- No 40mg Take 1 Univ ers 40 mg 03-20 tablet by ity of tablet 00:00: 00:00 mouth. [place] 00 :00 Medical Branch spironolact 2022-0 2022- No 25mg Take 1 Uni vers one 25 mg 03-20 tablet by ity of tablet 00:00: 00:00 mouth. [place] 00 :00 Medical Branch furosemide 2022-0 2023- No 40mg Take 1 Univ ers 40 mg 03-2030 tablet by ity of tablet 00:00: 00:00 mouth. [place] 00 :00 Medical Branch spironolact 3-0 2023- No 25mg Take 1 Uni vers one 25 mg 03-2030 tablet by ity of tablet 00:00: 00:00 mouth. [place] 00 :00 Medical Branch furosemide 2021-1 Yes 40mg Take 40 mg U nivers 40 mg 0-21 by mouth ity of tablet 13:09: every [place] [address] morning Medical and Branch evening. furosemide 2021-1 Yes 40mg Take 40 mg U nivers 40 mg 0-21 by mouth ity of tablet 13:09: every [place] [address] morning Medical and Branch evening. furosemide 2021-1 Yes 40mg Take 40 mg U nivers 40 mg 0-21 by mouth ity of tablet 13:09: every [place] [address] morning Medical and Branch evening. furosemide 2021- Yes 40mg Take 40 mg U nivers 40 mg 0-21 by mouth ity of tablet 13:09: every [place] [address] morning Medical and Branch evening. furosemide 2021-1 Yes 40mg Take 40 mg U nivers 40 mg 0-21 by mouth ity of tablet 13:09: every [place] [address] morning Medical and Branch evening. furosemide 2021-1 Yes 40mg Take 40 mg U nivers 40 mg 0-21 by mouth ity of tablet 13:09: every [place] [address] morning Medical and Branch evening. furosemide 2021- Yes 40mg Take 40 mg U nivers 40 mg 0-21 by mouth ity of tablet 13:09: every [place] [address] morning Medical and Branch evening. furosemide 2021-1 Yes 40mg Take 40 mg U nivers 40 mg 0-21 by mouth ity of tablet 13:09: every [place] [address] morning Medical and Branch evening. furosemide 2021-1 Yes 40mg Take 40 mg U nivers 40 mg 0-21 by mouth ity of tablet 13:09: every [place] [address] morning Medical and Branch evening. furosemide 2021-1 Yes 40mg Take 40 mg U nivers 40 mg 0-21 by mouth ity of tablet 13:09: every [place] [address] morning Medical and Branch evening. furosemide 2021-1 Yes 40mg Take 40 mg U nivers 40 mg 0-21 by mouth ity of tablet 13:09: every [place] [address] morning Medical and Branch evening. pantoprazol 2022-1 Yes 40mg Take 40 mg Univers e 40 mg EC 0-21 by mouth ity o f tablet 13:09: in the [place] [address] morning Medical and 40 mg Branch in the evening. pantoprazol 2-1 Yes 40mg Take 40 mg Univers e 40 mg EC 0-21 by mouth ity o f tablet 13:09: in the [place] [address] morning Medical and 40 mg Branch in the evening. pantoprazol 2-1 Yes 40mg Take 40 mg Univers e 40 mg EC 0-21 by mouth ity o f tablet 13:09: in the [place] [address] morning Medical and 40 mg Branch in the evening. pantoprazol 2-1 Yes 40mg Take 40 mg Univers e 40 mg EC 0-21 by mouth ity o f tablet 13:09: in the [place] [address] morning Medical and 40 mg Branch in the evening. pantoprazol 2021-1 Yes 40mg Take 40 mg Univers e 40 mg EC 0-21 by mouth ity o f tablet 13:09: in the [place] [address] morning Medical and 40 mg Branch in the evening. pantoprazol 2021-1 Yes 40mg Take 40 mg Univers e 40 mg EC 0-21 by mouth ity o f tablet 13:09: in the [place] [address] morning Medical and 40 mg Branch in the evening. pantoprazol 2-1 Yes 40mg Take 40 mg Univers e 40 mg EC 0-21 by mouth ity o f tablet 13:09: in the [place] [address] morning Medical and 40 mg Branch in the evening. pantoprazol 2021-1 Yes 40mg Take 40 mg Univers e 40 mg EC 0-21 by mouth ity o f tablet 13:09: in the [place] [address] morning Medical and 40 mg Branch in the evening. pantoprazol 2-1 Yes 40mg Take 40 mg Univers e 40 mg EC 0-21 by mouth ity o f tablet 13:09: in the [place] [address] morning Medical and 40 mg Branch in the evening. pantoprazol 2-1 Yes 40mg Take 40 mg Univers e 40 mg EC 0-21 by mouth ity o f tablet 13:09: in the [place] [address] morning Medical and 40 mg Branch in the evening. pantoprazol 2-1 Yes 40mg Take 40 mg Univers e 40 mg EC 0-21 by mouth ity o f tablet 13:09: in the [place] [address] morning Medical and 40 mg Branch in the evening. albumin 2021-03- No [id number] 50g 50 g, IV Univers (ALBUMINAR 0-21 10-21 Infusion, ity of 25%) 25 % 02:15: 02:32 ONCE, 1 [place] injection 00 :24 dose, On Medica l 50 g [facility] Branch 12/27/21 at 2115, 200 mL
Marge cation: HEPATORENA L SYNDROME (DIAGNOSIS )
Comme nts: Dosin-8 g/L of ascitic fluid removed spironolact 2021-03 Yes 100mg 100 mg, Un piedad one 0-19 Oral, ity of (ALDACTONE) 14:00: DAILY, [place] tablet 100 00 First dose Med ical mg on Fri12/26/21 at 0900, Until Discontinu ed, Routine docusate 2021-03 Yes 100mg 100 mg, Unive rs (COLACE) 0-19 Oral, BID, ity o f capsule 100 01:00: First dose [place] mg 00 on [facility] 12/25/21 Branch at 2000, Until Discontinu ed, Routine furosemide 2021-03 Yes 40mg 40 mg, Unive rs (LASIX) 0-19 Slow IV ity of injection 01:00: Push, [place] 40 mg 00 Q12H, Medical First dose Branch on Fri12/25/21 at 2000, Until Discontinu ed, Routine Sliding 2021-03 Yes Subcutaneo Univ ers Scale 0-18 us, TID ity of Insulin - 22:00: MEALS+HS, [place] Lispro 00 First dose Medical (HumaLOG) + on Fri Fsbg 12/25/21 Testing at 1700, Until Discontinu ed, Routine enoxaparin 2021-03 Yes 30mg 30 mg, Unive rs (LOVENOX) 0-18 Subcutaneo ity of injection 22:00: [place], DAILY, [place] 30 mg 00 First dose Medical on [facility] Branch 12/25/21 at 1700, Until Discontinu ed, Routine glucagon 2021-03 Yes 1mg 1 mg, Univers (GLUCAGEN 0-18 Intramuscu ity of DIAGNOSTIC 21:33: [place], PRN, [place] KIT) 19 Starting Medical injection 1 on Branch mg 12/25/21 at 1633, Until Discontinu ed, NAYAN, Blood Glucose < or = 70 mg/dL and patient is unable to swallow or has mental changes. dextrose 50 2021-03 Yes 25mL 25 mL, Univ ers % in water 0-18 Slow IV ity of (D50W) 21:33: Push, PRN, [place] injection 19 Starting Medica l 25 mL on [facility] 12/25/21 at 1633, Until Discontinu ed, NAYAN, Blood Glucose < or = 70 mg/dL and patient is unable to swallow or has mental status changes. ondansetron 2021-03 Yes 4mg 4 mg, Slow Univers (ZOFRAN 0-18 IV Push, ity of (PF)) 21:33: Q6HPRN, [place] injection 4 11 Starting Medi rosario mg on [facility] 12/25/21 at 1633, Until Discontinu ed, Routine, Nausea and Vomiting (N/V) acetaminoph 2021-03 Yes 650mg 650 mg, Un piedad en 0-18 Oral, ity of (TYLENOL) 21:32: Q6HPRN, [place] tablet 650 53 Starting Medic al mg on [facility] 12/25/21 at 1632, Until Discontinu ed, Routine, Pain (scale 1-3) pantoprazol 2021-03 Yes 40mg Take 40 mg Univers e 40 mg EC 0-02 by mouth ity o f tablet 16:36: in the [place] [address] morning Medical and 40 mg Branch in the evening. furosemide 2021-03 Yes 40mg Take 40 mg U nivers 40 mg 0-02 by mouth ity of tablet 16:36: every [place] [address] morning Medical and Branch evening. pantoprazol 2021-03 Yes 40mg Take 40 mg Univers e 40 mg EC 0-02 by mouth ity o f tablet 16:36: in the [place] 06 morning Medical and 40 mg Branch in the evening. furosemide 2021-03 Yes 40mg Take 40 mg U nivers 40 mg 0-02 by mouth ity of tablet 16:36: every [place] [address] morning Medical and Branch evening. spironolact 2021-03- No 25mg Take 25 mg Univers one 25 mg 0-02 02 by mouth ity o f tablet 13:32: 00:00 in the [place] 31 :00 morning Medical and 25 mg Branch in the evening. spironolact 2021-03- No [id number] 25mg Take 1 Univers one 25 mg 0-02 11-02 tablet by ity of tablet 00:00: 04:59 mouth in [place] 00 :00 the [facility] for 30 days. spironolact 2021-03- No [id number] 25mg Take 1 Univers one 25 mg 0-02 11-02 tablet by ity of tablet 00:00: 04:59 mouth in [place] 00 :00 [facility] for 30 days. spironolact 2021-03- No [id number] 25mg Take 1 Univers one 25 mg 0-02 11-02 tablet by ity of tablet 00:00: 04:59 mouth in [place] 00 :00 [facility] for 30 days. spironolact 2021-03- No [id number] 25mg Take 1 Univers one 25 mg 0-02 -02 tablet by ity of tablet 00:00: 04:59 mouth in [place] 00 :00 [facility] for 30 days. midodrine 2021-03 Yes 5mg 5 mg, Univers (PROAMATINE 0-01 Oral, TID, it y of ) tablet 5 19:00: First dose [place] mg 00 on [facility] 12/08/21 at Branch 1400, Until Discontinu ed, Routine foLIC acid 2021-03 No 1mg 1 mg, Unive rs (FOLATE) 0-12-08 Oral, ity of tablet 1 mg 16:15: 17:09 ONCE, 1 [place] 00 :00 dose, On Medical [facility] 12/08/21 at 1115, Routine thiamine 2021-03 Yes 100mg 100 mg, Unive rs (VITAMIN 0-01 Oral, ity of B1) tablet 15:30: DAILY, [place] 100 mg 00 First dose Medical on [facility] 12/08/21 at 1030, Until Discontinu ed, Routine furosemide 2021-03 Yes 40mg 40 mg, Unive rs (LASIX) 0-01 Oral, ity of tablet 40 14:00: DAILY, [place] mg 00 First dose Medical on [facility] 12/08/21 at 0900, Until Discontinu ed, Routine spironolact 2021-03- No 100mg 100 mg, U nivers one 0- 10-01 Oral, ity of (ALDACTONE) 14:00: 15:45 DAILY, [place] tablet 100 00 :15 First dose Med ical mg on Sat Branch 12/08/21 at 0900, Until Discontinu ed, Routine traMADoL 2021-03 Yes 50mg 50 mg, Univers (ULTRAM) 0-01 Oral, ity of tablet 50 10:49: Q6HPRN, [place] mg 22 Starting Medical on Sat Branch 12/08/21 at 0549, Until Discontinu ed, Routine, Pain (scale 4-6) heparin 2021-03 Yes 5000U 5,000 Univers (porcine) 0-01 Units, ity of injection 03:00: Subcutaneo [place] 5,000 Units 00 us, Q8H, Medi rosario First dose Branch on Fri12/07/21 at 2200, Until Discontinu ed, Routine Sliding 2021-03 Yes Subcutaneo Univ ers Scale 0-01 us, TID ity of Insulin - 02:00: MEALS+HS, [place] Lispro 00 First dose Medical (HumaLOG) + on Fri Branch Fsbg 12/07/21 at Testing 2100, Until Discontinu ed, Routine albumin 2021- No [id number] 25g 25 g, IV Univers (ALBUMINAR 12-07 Infusion, ity of 25%) 25 % 20:15: 02:01 [place] dose, On Medica l 25 g Fri Branch 12/07/21 at 1515, 100 mL
Marge cation: HEPATORENA L SYNDROME (DIAGNOSIS )
Comme nts: Dosin-8 g/L of ascitic fluid removed furosemide 2021- No [id number] 40mg 40 mg, Univers (LASIX) 12-07 Slow IV ity of injection 19:45: 23:45 Push, [place] 40 mg 00 :00 ONCE, 1 Medical dose, On Branch 12/07/21 at 1445, NAYAN lidocaine 2021- No 10mL 10 mL, Unive rs 1% 12-07 Infiltrati ity of (XYLOCAINE) 18:00: 17:47 on, ONCE, [place] 10 mg/mL (1 00 :00 1 dose, On Me dical %) Fri Branch injection 12/07/21 at 10 mL 1300, NAYAN No known No No known Unive rs medications 9-16 medication it y of 13:38: s [address] No known No No known Unive rs medications 8-11 medication it y of 11:47: s [address] No known 0 No No known Unive rs medications 8-11 medication it y of 11:47: s [address] No known 2021-0 No No known Unive rs medications 8-11 medication it y of 11:47: s [address] Vital Signs Vital Name Observation Time Observation Value Comments Source Systolic blood 2022-06-06 19:06:00 120 mm[Hg] Univer sity of [facility] Diastolic blood 2022-06-06 19:06:00 79 mm[Hg] Unive rsity of [facility] Heart rate 2022-06-06 19:06:00 78 /min Universi ty [facility] Body temperature 2022-06-06 19:06:00 36.17 Shabnam [facility] ersity [facility] Body height 2022-06-06 19:06:00 172.7 cm Universi ty [facility] Body weight 2022-06-06 19:06:00 80.513 kg Universi ty [facility] BMI 2022-06-06 19:06:00 26.99 kg/m2 [facility] Oxygen saturation in 2022-06-06 19:06:00 99 /min University of Arterial blood by [place] [employer] [facility] Pulse oximetry Branch Systolic blood 2022-06-05 14:00:00 125 mm[Hg] Univer sity of [facility] Diastolic blood 2022-06-05 14:00:00 74 mm[Hg] Unive rsity of [facility] Heart rate 2022-06-05 14:00:00 80 /min Universi ty [facility] Respiratory rate 2022-06-05 14:00:00 18 /min [facility] ersity [facility] Oxygen saturation in 2022-06-05 14:00:00 99 /min University of Arterial blood by [place] [employer] Pulse oximetry Branch Body temperature 2022-06-05 11:46:00 35.72 Shabnam Univ ersity of [facility] Body weight 2022-06-05 11:46:00 85.276 kg [facility] BMI 2022-06-05 11:46:00 28.59 kg/m2 [facility] [place] [facility] Systolic blood 2022-06-01 00:00:00 140 mm[Hg] Univer sity of [facility] [place] [facility] Diastolic blood 2022-06-01 00:00:00 99 mm[Hg] Unive rsity of [facility] [place] [facility] Heart rate 2022-06-01 00:00:00 74 /min [facility]i [facility] [place] [facility] Respiratory rate 2022-06-01 00:00:00 18 /min Univ [facility] [place] [facility] Oxygen saturation in 2022-06-01 00:00:00 100 /min [facility] of Arterial blood by [place] [employer] [facility] Pulse oximetry Branch Body temperature 2022-05-31 18:57:45 36.33 Shabnam Univ [facility] [place] [facility] Body weight 2022-05-31 18:43:00 85.276 kg [facility] [place] [facility] BMI 2022-05-31 18:43:00 28.59 kg/m2 [facility] [place] [facility] Systolic blood 2022-04-11 22:07:00 156 mm[Hg] Univer sity of [facility] [place] [facility] Diastolic blood 2022-04-11 22:07:00 94 mm[Hg] Unive rsity of [facility] [place] [facility] Heart rate 2022-04-11 22:07:00 78 /min [facility] [place] [facility] Body temperature 2022-04-11 22:07:00 36.39 Shabnam Univ [facility] [place] [facility] Respiratory rate 2022-04-11 22:07:00 19 /min Univ [facility] [place] [facility] Oxygen saturation in 2022-04-11 22:07:00 100 /min [facility] of Arterial blood by [place] [employer] [facility] Pulse oximetry Branch Body height 2022-04-11 02:52:00 172.7 cm [facility] [place] [facility] Body weight 2022-04-11 02:52:00 88.451 kg [facility] [place] [facility] BMI 2022-04-11 02:52:00 29.65 kg/m2 [facility] [place] [facility] Systolic blood 2022-03-27 21:30:00 140 mm[Hg] Univer sity of [facility] [place] [facility] Diastolic blood 2022-03-27 21:30:00 83 mm[Hg] Unive rsity of [facility] [place] [facility] Heart rate 2022-03-27 21:30:00 68 /min [facility]i [facility] [place] [facility] Respiratory rate 2022-03-27 21:30:00 13 /min Univ ers[facility] [place] [facility] Oxygen saturation in 2022-03-27 21:30:00 100 /min [facility] of Arterial blood by [place] [employer] Pulse oximetry Branch Body temperature 2022-03-27 18:33:00 36.89 Shabnam Univ [facility] [place] [facility] Body height 2022-03-27 18:33:00 172.7 cm [facility] [place] [facility] Body weight 2022-03-27 18:33:00 88.451 kg [facility] [place] [facility] BMI 2022-03-27 18:33:00 29.65 kg/m2 [facility] [place] [facility] Body weight 2022-03-12 17:50:00 87.544 kg [facility] [place] [facility] BMI 2022-03-12 17:50:00 29.35 kg/m2 [facility] [place] [facility] Systolic blood 2022-03-12 17:39:00 130 mm[Hg] Univer sity of [facility] [place] [facility] Diastolic blood 2022-03-12 17:39:00 83 mm[Hg] Unive rsity of [facility] [place] [facility] Heart rate 2022-03-12 17:39:00 71 /min [facility]i ty [facility] [place] [facility] Body temperature 2022-03-12 17:39:00 36.61 Shabnam Univ ers[facility] [place] [facility] Respiratory rate 2022-03-12 17:39:00 22 /min Univ ers[facility] [place] [facility] Body height 2022-03-12 17:39:00 172.7 cm [facility] [place] [facility] Oxygen saturation in 2022-03-12 17:39:00 100 /min University of Arterial blood by [place] [employer] Pulse oximetry Branch Systolic blood 2022-02-27 22:01:00 153 mm[Hg] Univer sity of [facility] [place] [facility] Diastolic blood 2022-02-27 22:01:00 85 mm[Hg] Unive rsity of [facility] [place] [facility] Heart rate 2022-02-27 22:01:00 81 /min [facility]i ty [facility] [place] [facility] Respiratory rate 2022-02-27 22:01:00 16 /min Univ ersity [facility] [place] [facility] Oxygen saturation in 2022-02-27 21:26:00 95 /min University of Arterial blood by [facility] Pulse oximetry Branch Body temperature 2022-02-27 21:04:00 36.89 Shabnam Univ ersity [facility] [place] [facility] Body weight 2022-02-27 21:04:00 88.451 kg [facility] [place] [facility] BMI 2022-02-27 21:04:00 29.65 kg/m2 [facility] [place] [facility] Body weight 2022-02-13 22:39:00 79.606 kg [facility] [place] [facility] BMI 2022-02-13 22:39:00 26.68 kg/m2 [facility] [place] [facility] Systolic blood 2022-02-13 22:35:00 130 mm[Hg] Univer sity of [facility] [place] [facility] Diastolic blood 2022-02-13 22:35:00 87 mm[Hg] Unive rsity of [facility] [place] [facility] Heart rate 2022-02-13 22:35:00 65 /min [facility] [place] [facility] Respiratory rate 2022-02-13 22:35:00 18 /min Univ ersity [facility] [place] [facility] Oxygen saturation in 2022-02-13 22:35:00 99 /min University of Arterial blood by [facility] Pulse oximetry Branch Body temperature 2022-02-13 21:15:00 36.5 Shabnam Univ ers[facility] [place] [facility] Body height 2022-02-13 21:15:00 172.7 cm [facility] [place] [facility] Systolic blood 2022-01-30 19:05:00 140 mm[Hg] Univer sity of [facility] [place] [facility] Diastolic blood 2022-01-30 19:05:00 79 mm[Hg] Unive rsity of [facility] [place] [facility] Heart rate 2022-01-30 19:05:00 83 /min [facility] [place] [facility] Respiratory rate 2022-01-30 19:05:00 16 /min Univ ersity [facility] [place] [facility] Oxygen saturation in 2022-01-30 19:05:00 100 /min [facility] of Arterial blood by [facility] Pulse oximetry Branch Body temperature 2022-01-30 16:57:00 36.61 Shabnam Univ [facility] [place] [facility] Body height 2022-01-30 16:57:00 170.2 cm [facility] [place] [facility] Body weight 2022-01-30 16:57:00 86.183 kg [facility] [place] [facility] BMI 2022-01-30 16:57:00 29.76 kg/m2 [facility] [place] [facility] Systolic blood 2022-01-16 19:31:00 140 mm[Hg] Univer sity of [facility] [place] [facility] Diastolic blood 2022-01-16 19:31:00 82 mm[Hg] Unive rsity of [facility] [place] [facility] Heart rate 2022-01-16 19:31:00 79 /min [facility] [place] [facility] Respiratory rate 2022-01-16 19:31:00 18 /min Univ ers[facility] [place] [facility] Oxygen saturation in 2022-01-16 19:31:00 99 /min [facility] of Arterial blood by [place] [employer] [facility] Pulse oximetry Branch Body weight 2022-01-16 17:42:00 85.276 kg [facility] [place] [facility] BMI 2022-01-16 17:42:00 29.44 kg/m2 [facility] [place] [facility] Body temperature 2022-01-16 17:41:00 36.83 Shabnam Univ [facility] [place] [facility] Systolic blood 2022 02:00:00 148 mm[Hg] Univer sity of [facility] [place] [facility] Diastolic blood 2022 02:00:00 83 mm[Hg] Unive rsity of [facility] [place] [facility] Heart rate 2022 02:00:00 79 /min [facility] [place] [facility] Respiratory rate 2022 02:00:00 20 /min Univ [facility] [place] [facility] Oxygen saturation in 2022 02:00:00 98 /min [facility] of Arterial blood by [place] [employer] [facility] Pulse oximetry Branch Body weight 2022-01-12 23:58:00 72.576 kg [facility] [place] [facility] BMI 2022-01-12 23:58:00 25.06 kg/m2 [facility] [place] [facility] Systolic blood 2022-01-12 20:14:00 139 mm[Hg] Univer sity of [facility] [place] [facility] Diastolic blood 2022-01-12 20:14:00 93 mm[Hg] Unive rsity of [facility] [place] [facility] Heart rate 2022-01-12 20:14:00 91 /min [facility] [place] [facility] Respiratory rate 2022-01-12 20:14:00 18 /min Univ ersity [facility] [place] [facility] Body height 2022-01-12 20:14:00 170.2 cm [facility] [place] [facility] Body weight 2022-01-12 20:14:00 72.576 kg [facility] [place] [facility] BMI 2022-01-12 20:14:00 25.06 kg/m2 [facility] [place] [facility] Oxygen saturation in 2022-01-12 20:14:00 99 /min [facility] of Arterial blood by [place] [employer] [facility] Pulse oximetry Branch Systolic blood 2021-12-28 16:22:00 116 mm[Hg] Univer sity of [facility] [place] [facility] Diastolic blood 2021-12-28 16:22:00 76 mm[Hg] Unive rsity of [facility] [place] [facility] Heart rate 2021-12-28 16:22:00 78 /min [facility]i ty [facility] [place] [facility] Body temperature 2021-12-28 16:22:00 35.78 Shabnam Univ ers[facility] [place] [facility] Oxygen saturation in 2021-12-28 16:22:00 100 /min [facility] of Arterial blood by [place] [employer] [facility] Pulse oximetry Branch Respiratory rate 2021-12-28 12:52:00 18 /min Univ ers[facility] [place] [facility] Body weight 2021-12-28 08:15:00 75.978 kg [facility] [place] [facility] BMI 2021-12-28 08:15:00 25.47 kg/m2 [facility] [place] [facility] Body height 2021-12-25 22:02:00 172.7 cm [facility] [place] [facility] Systolic blood 2021-12-14 19:55:00 120 mm[Hg] Univer sity of [facility] [place] [facility] Diastolic blood 2021-12-14 19:55:00 94 mm[Hg] Unive rsity of [facility] [place] [facility] Heart rate 2021-12-14 19:55:00 93 /min [facility] [place] [facility] Body temperature 2021-12-14 19:55:00 36.56 Shabnam Univ ersity [facility] [place] [facility] Respiratory rate 2021-12-14 19:55:00 16 /min Univ ersity [facility] [place] [facility] Body height 2021-12-14 19:55:00 172.7 cm [facility] [place] [facility] Body weight 2021-12-14 19:55:00 81.647 kg [facility] [place] [facility] BMI 2021-12-14 19:55:00 27.37 kg/m2 [facility] [place] [facility] Oxygen saturation in 2021-12-14 19:55:00 100 /min [facility] [place] blood by [place] [facility] Pulse oxim[facility] Branch Systolic blood 2021-12-09 16:13:00 139 mm[Hg] Univer sity of [facility] [place] [facility] Diastolic blood 2021-12-09 16:13:00 88 mm[Hg] Unive rsity of [facility] [place] [facility] Heart rate 2021-12-09 16:13:00 77 /min [facility] [place] [facility] Body temperature 2021-12-09 16:13:00 36.06 Shabnam Univ [facility] [place] [facility] Respiratory rate 2021-12-09 16:13:00 18 /min Univ ers[facility] [place] [facility] Oxygen saturation in 2021-12-09 16:13:00 95 /min University of Arterial blood by [facility] rosario Pulse oximetry Branch Body weight 2021-12-09 08:54:00 78.971 kg [facility] [place] [facility] BMI 2021-12-09 08:54:00 26.47 kg/m2 [facility] [place] [facility] Systolic blood 2021-11-23 19:30:00 140 mm[Hg] Univer sity of [facility] [place] [facility] Diastolic blood 2021-11-23 19:30:00 83 mm[Hg] Unive rsity of [facility] [place] [facility] Heart rate 2021-11-23 19:30:00 79 /min [facility] [place] [facility] Oxygen saturation in 2021-11-23 19:30:00 100 /min University of Arterial blood by [facility] rosario Pulse oximetry Branch Body temperature 2021-11-23 18:42:00 36.44 Shabnam Univ ersity [facility] [place] [facility] Respiratory rate 2021-11-23 18:39:00 20 /min Univ ersity [facility] [place] [facility] Body height 2021-11-23 18:39:00 172.7 cm [facility] [place] [facility] Body weight 2021-11-23 18:39:00 83.598 kg [facility] [place] [facility] BMI 2021-11-23 18:39:00 28.02 kg/m2 [facility] [place] [facility] Systolic blood 2021-11-09 21:10:00 169 mm[Hg] Univer sity of pressure [facility] Diastolic blood 2021-11-09 21:10:00 80 mm[Hg] Unive rsity of pressure [facility] Branch Heart rate 2021-11-09 21:10:00 85 /min [facility] ty [facility] [place] [facility] Respiratory rate 2021-11-09 21:10:00 16 /min Univ ersity of [facility] Branch Oxygen saturation in 2021-11-09 21:10:00 94 /min University of Arterial blood by [facility] Pulse oximetry Branch Body temperature 2021-11-09 19:49:00 36.83 Shabnam [facility] ersity of [facility] Body height 2021-11-09 19:49:00 172.7 cm [facility]i ty [facility] [place] [facility] Body weight 2021-11-09 19:49:00 90.719 kg Universi ty of [facility] Branch BMI 2021-11-09 19:49:00 30.41 kg/m2 Universi ty of [facility] Branch Systolic blood 2021-10-18 15:17:00 149 mm[Hg] Univer sity of pressure [facility] Branch Diastolic blood 2021-10-18 15:17:00 79 mm[Hg] Unive rsity of pressure [facility] Heart rate 2021-10-18 15:17:00 77 /min Universi ty of [facility] Body temperature 2021-10-18 15:17:00 36.61 Shabnam Univ ersity of [facility] Branch Respiratory rate 2021-10-18 15:17:00 16 /min Univ ersity of [facility] Body weight 2021-10-18 15:17:00 90.719 kg Universi ty of [facility] Oxygen saturation in 2021-10-18 15:17:00 98 /min University of Arterial blood by [facility] Pulse oximetry Branch Procedures Procedure Date / Time Performing Clinician Source Performed ASSIGNMENT OF BENEFITS 2022-06-06 18:38:18 Doctor Unassigned, No [place] [employer] [facility] [employer] [facility] Name Medical Branch LIPASE 2022-06-05 13:17:00 Kristel, [facility] HEPATIC FUNCTION PANEL 2022-06-05 13:17:00 Kristel [facility] ([id number]) (ALB,T.PRO,BILI Medical Branch T,BU/BC,ALT,AST,ALK PHOS) BASIC METABOLIC PANEL 2022-06-05 13:17:00 Kristel [facility] (NA, K, CL, CO2, Medical Branch GLUCOSE, BUN, CREATININE, CA) CBC WITH DIFF 2022-06-05 13:17:00 Kristel, [facility] PROTHROMBIN TIME / INR 2022-06-05 13:17:00 Kristel [facility] ACTIVATED PARTIAL 2022-06-05 13:17:00 Kristel [facility] CONSENT/REFUSAL FOR 2022-06-05 11:43:52 [facility] BODY FLUID DIRECT COUNT 2022-05-31 23:03:00 Onur Jeremias [facility] HEPATIC FUNCTION PANEL 2022-05-31 21:22:00 Jeremias [facility] ([id number]) (ALB,T.PRO,BILI Medical Branch T,BU/BC,ALT,AST,ALK PHOS) CBC WITH DIFF 2022-05-31 19:08:00 Onur [facility] BASIC METABOLIC PANEL 2022-05-31 19:00:00 Ounr Jeremias [facility] (NA, K, CL, CO2, Medical Branch GLUCOSE, BUN, CREATININE, CA) PROTHROMBIN TIME / INR 2022-05-31 19:00:00 Jeremias Mohr [facility] CONSENT/REFUSAL FOR 2022-05-31 18:40:37 Doctor [facility]igned, [facility] Name [facility] BASIC METABOLIC PANEL 2022-04-11 22:15:00 Rivera Stinson [facility] (NA, K, CL, CO2, Medical Branch GLUCOSE, BUN, CREATININE, CA) BLOOD CULTURE SCREEN 2022-04-11 16:47:00 Rivera Stinson [facility] MAGNESIUM 2022-04-11 09:39:00 Edward [facility] COMP. METABOLIC PANEL 2022-04-11 09:39:00 Eddie [facility] ([id number]) [facility] CBC WITH DIFF 2022-04-11 09:39:00 Edward [facility] HCV ANTIBODY 2022-04-11 09:39:00 Edward [facility] HEPATITIS C VIRUS (HCV) 2022-04-11 09:39:00 Edward [facility] BY QUANTITATIVE NAAT Medical [facility] T.PROTEIN BODY FLUID 2022-04-11 06:15:00 Eddie Doyle [facility] BODY FLUID DIRECT COUNT 2022-04-11 06:15:00 Eddie Doyle [facility] BODY FLUID (BACTEC 2022-04-11 06:15:00 [facility] COMP. METABOLIC PANEL 2022-04-10 21:26:00 Bucky Gloria [facility] ([id number]) [facility] CBC WITH DIFF 2022-04-10 21:26:00 Bucky Gloria [facility] GLYCOSYLATED HEMOGLOBIN 2022-04-10 21:26:00 [facility] [place] [facility] (A1C) [facility] PROTHROMBIN TIME / INR 2022-04-10 21:26:00 Bucky [facility] ACTIVATED PARTIAL 2022-04-10 21:26:00 Bucky Gloria [facility] THRMPLAS [facility] CONSENT/REFUSAL FOR 2022-04-10 19:58:33 Doctor Unassigned, No [facility] HOSPITAL ADMISSION 2022-04-10 06:01:00 Doctor Unassigned, No Uni versity [facility] AR ABDOM PARACENTESIS 2022-03-27 20:57:39 Gini [facility] DX/THER W/IMAGING [facility] GUIDANCE COMP. METABOLIC PANEL 2022-03-27 18:56:00 Gini [facility] ([id number]) Medical Branch CBC WITH DIFF 2022-03-27 18:56:00 Gini [facility] PROTHROMBIN TIME / INR 2022-03-27 18:56:00 Gini [facility] Medical Branch AR ABDOM PARACENTESIS 2022-03-12 18:32:33 Kev [facility]THER W IMAGING Medical Branch GUIDANCE CONSENT/REFUSAL FOR 2022-03-12 17:29:10 Doctor Unassigned, No [facility] [place] [facility]NOSIS [facility] TREATMENT Name Medical Branch AR ABDOM PARACENTESIS 2022-02-27 21:29:57 Kev [facility] DX/THER W IMAGING Medical Branch GUIDANCE CONSENT/REFUSAL FOR 2022-02-27 21:02:37 Doctor Unassigned, No [facility] [place] DIAGNOSIS AND TREATMENT Name Medical Branch AR ABDOM PARACENTESIS 2022-02-13 21:42:20 Kev [facility] DX/THER W IMAGING Medical Branch GUIDANCE CONSENT/REFUSAL FOR 2022-02-13 21:08:22 Doctor Unassigned, No [facility] [place] DIAGNOSIS AND TREATMENT Name Medical Branch AR ABDOM PARACENTESIS 2022-01-30 19:16:37 Kev Nguyen [facility] DX/THER W IMAGING Medical Branch GUIDANCE CONSENT/REFUSAL FOR 2022-01-30 16:51:04 Doctor Unassigned, No [facility] [place] DIAGNOSIS AND TREATMENT Name Medical Branch AR ABDOM PARACENTESIS 2022-01-16 19:17:58 Kev Nguyen [facility] DX/THER W IMAGING Medical Branch GUIDANCE CONSENT/REFUSAL FOR 2022-01-16 17:29:44 Doctor Unassigned, No [facility] [place] DIAGNOSIS AND TREATMENT Name Medical Branch XR CHEST 1 VW 2022 01:47:22 Jaqui Romano [facility] COMP. METABOLIC PANEL 2022 01:19:00 Jaqui Romano [facility] ([id number]) Medical Branch CBC WITH DIFF 2022 01:19:00 Jaqui Romano [facility] PROTHROMBIN TIME / INR 2022 01:19:00 Jaqui Romano [facility] ACTIVATED PARTIAL 2022 01:19:00 Jaqui Romano [facility] CONSENT/REFUSAL FOR 2022-01-12 22:44:32 Doctor Unassigned, No [facility] [place] DIAGNOSIS AND TREATMENT Name [facility] Branch CONSENT/REFUSAL FOR 2022-01-12 20:00:19 Doctor Unassigned, No [facility] [place] DIAGNOSIS AND TREATMENT Name [facility] POCT GLUCOSE (AUTOMATED) 2021-12-28 12:54:00 Augustin Jean Uni [facility] BASIC METABOLIC PANEL 2021-12-28 08:19:00 Danielle Rothman [facility] [place] (NA, K, CL, CO2, Medical Branch GLUCOSE, BUN, CREATININE, CA) CBC WITH DIFF 2021-12-28 08:19:00 Danielle Rothman [facility] BODY FLUID DIRECT COUNT 2021-12-28 01:21:00 [facility] BODY FLUID 2021-12-28 01:21:00 [facility] CULTURE(AEROBIC/ANAEROBI Medical Branch C) POCT GLUCOSE (AUTOMATED) 2021-12-28 00:42:00 Augustin Jean Uni [facility] POCT GLUCOSE (AUTOMATED) 2021-12-27 21:53:00 Augustin Jean Uni [facility] POCT GLUCOSE (AUTOMATED) 2021-12-27 16:33:00 Augustin Jean Uni versity of [facility] Branch POCT GLUCOSE (AUTOMATED) 2021-12-27 12:29:00 Augustin Jean [facility] BASIC METABOLIC PANEL 2021-12-27 09:27:00 Danielle Rothman [facility] [place] (NA, K, CL, CO2, Medical Branch GLUCOSE, BUN, CREATININE, CA) CBC WITH DIFF 2021-12-27 09:27:00 Danielle Rothman [facility] POCT GLUCOSE (AUTOMATED) 2021-12-27 01:11:00 Augustin Jean Uni versity [facility] POCT GLUCOSE (AUTOMATED) 2021-12-26 21:17[facility]00 [facility] 2021-12-26 16:48:00 Ted [facility] POCT GLUCOSE (AUTOMATED) 2021-12-26 12:47:00 Ted [facility] LACTATE DEHYDROGENASE 2021-12-26 09:26:00 Ted [facility] MAGNESIUM 2021-12-26 09:26:00 Ted [facility] o f [facility] HEPATIC FUNCTION PANEL 2021-12-26 09:26:00 Ted [facility] ([id number]) (ALB,T.PRO,BILI [facility] T,BU/BC,ALT,AST,ALK PHOS) BASIC METABOLIC PANEL 2021-12-26 09:26:00 Ted [facility] (NA, K, CL, CO2, Medical [place] GLUCOSE, BUN, CREATININE, CA) CBC WITH DIFF 2021-12-26 09:26:00 Ted [facility] POCT GLUCOSE (AUTOMATED) 2021-12-26 00:44:00 Ted [facility] [place] POCT GLUCOSE (AUTOMATED) 2021-12-25 23:16:00 Ted [facility] URINALYSIS 2021-12-25 15:12:00 Chilo Oliva [facility] XR CHEST 2 VW 2021-12-25 14:56:42 Chilo Oliva [facility] COMP. METABOLIC PANEL 2021-12-25 14:31:00 Chilo Oliva [facility] ([id number]) [facility] CBC WITH DIFF 2021-12-25 14:31:00 Chilo Oliva [facility] PROTHROMBIN TIME / INR 2021-12-25 14:31:00 Chilo Oliva [facility] ACTIVATED PARTIAL 2021-12-25 14:31:00 Chilo Oliva [facility] CONSENT/REFUSAL FOR 2021-12-25 13:31:05 Doctor Unassigned, No [facility] [place] [facility]REATMENT Name Medical Branch BASIC METABOLIC PANEL 2021-12-14 22:07:00 Mike Hoffman [facility] (NA, K, CL, CO2, Medical Branch GLUCOSE, BUN, CREATININE, CA) CBC WITH DIFF 2021-12-14 22:07:00 Mike Hoffman Marks o [facility] CONSENT/REFUSAL FOR 2021-12-14 19:51:33 Doctor Unassigned, No [facility] Name [facility] Branch POCT GLUCOSE (AUTOMATED) 2021-12-09 16:37:00 Alisha Cha Uni versity [facility] POCT GLUCOSE (AUTOMATED) 2021-12-09 12:50:[address] [facility] BASIC MET[facility]OLIC PANEL 2021-12-09 08:57:00 [facility] ([facility], K, CL, CO2, Medical Branch GLUCOSE, BUN, CREATININE, CA) POCT GLUCOSE (AUTOMATED) 2021-12-09 01:54:00 Alisha Cha versity [facility] POCT GLUCOSE (AUTOMATED) 2021-12-08 21:56:00 Alisha Cha Uni versity of [facility] POCT GLUCOSE (AUTOMATED) 2021-12-08 16:49:00 Alisha Cha Uni versity [facility] POCT GLUCOSE (AUTOMATED) 2021-12-08 14:07:00 Alisha Cha versity [facility] PHOSPHORUS 2021-12-08 08:58:00 Dusty Josue [facility] URIC ACID 2021-12-08 08:58:00 Dusty Josue [facility] MAGNESIUM 2021-12-08 08:58:00 Dusty Josue [facility] AMMONIA, PLASMA 2021-12-08 08:58:00 Dusty Josue [facility] BASIC METABOLIC PANEL 2021-12-08 08:58:00 Danielle [facility] (NA, K, CL, CO2, Medical Branch GLUCOSE, BUN, CREATININE, CA) IRON PANEL 2021-12-08 08:58:00 Dusty Josue [facility] CBC WITH DIFF 2021-12-08 08:58:00 Danielle Rothman [facility] URINALYSIS 2021-12-08 02:26:00 Willy, [facility] POTASSIUM, URINE RANDOM 2021-12-08 02:25:00 Willy, [facility] SODIUM, URINE RANDOM 2021-12-08 02:25:00 Willy, [facility] PROTEIN CREAT RATIO 2021-12-08 02:25:00 Willy, [facility] URINE RANDOM [facility] OSMOLALITY URINE 2021-12-08 02:23:00 Willy, [facility] POCT GLUCOSE (AUTOMATED) 2021-12-08 02:08:00 Alisha Cha [facility] AR ABDOM PARACENTESIS 2021-12-07 22:45:00 Bucky Gloria [facility] DX/THER W IMAGING [facility] GUIDANCE PHOSPHORUS 2021-12-07 19:33:00 Stephan [facility] CREATINE KINASE 2021-12-07 19:33:00 Willy, [facility] MAGNESIUM 2021-12-07 19:33:00 Stephan [facility] LIPID PANEL 2021-12-07 19:33:00 Stephan [facility] ([id number])(TOTAL Medical Branch CHOLESTEROL, TRIGLYCERIDES, HDL) N-TERMINAL PRO-BNP 2021-12-07 19:33:00 Willy [facility] COMP. METABOLIC PANEL 2021-12-07 16:02:00 Bucky Gloria [facility] ([id number]) [facility] CBC WITH DIFF 2021-12-07 16:02:00 Bucky Gloria [facility] GLYCOSYLATED HEMOGLOBIN 2021-12-07 16:02:00 Stephan [facility] (A1C) [facility] PROTHROMBIN TIME / INR 2021-12-07 16:02:00 Bucky Gloria [facility] ACTIVATED PARTIAL 2021-12-07 16:02:00 Bucky Gloria [facility] CONSENT/REFUSAL FOR 2021-12-07 15:35:39 Doctor Unassigned, No [facility] [place] DIAGNOSIS AND TREATMENT Name Medical Branch AR ABDOM PARACENTESIS 2021-11-23 19:39:[address] [facility] [place] DX/THER W IMAGING Medical Branch GUIDANCE CONSENT/REFUSAL FOR 2021-11-23 18:36:31 Doctor Unassigned, No [facility] [place] DIAGNOSIS AND TREATMENT Name Medical Branch AR ABDOM PARACENTESIS 2021-11-09 20:59:55 Kev Nguyen [facility] DX/THER W IMAGING Medical Branch GUIDANCE CONSENT/REFUSAL FOR 2021-11-09 19:35:17 Doctor Unassigned, No [facility] [place] DIAGNOSIS AND TREATMENT Name [facility] NOTICE OF PRIVACY 2021-11-09 19:32:40 Doctor Unassigned, No [facility] [place] PRACTICES Name Medical Branch LIPASE 2021-10-18 15:50:00 Annabelle Ramirez [facility] COMP. METABOLIC PANEL 2021-10-18 15:50:00 Annabelle Ramirez [facility] [place] ([id number]) [facility] CBC WITH DIFF 2021-10-18 15:50:00 Annabelle Ramirez [facility] CONSENT/REFUSAL FOR 2021-10-18 15:18:16 Doctor Unassigned, No [facility] [place] DIAGNOSIS AND TREATMENT Name [facility] Encounters Start End Encounter Admission Attending Care Care Encounter Source Date/Time Date/Time Type Type Clinicians Facility Department ID 2022-06-13 2022-06-13 Outpatient SFA TONY [id number] [place] 09:35:42 09:35:42 [id number] F [place] 2022-06-06 2022-06-06 Office Adela MDEMILIA [id number] Univers 14:30:00 15:00:00 Visit Leila [facility] 4[facility]2.7.2.686 [facility] AT [id number] Vt farrah LYONS 2 [facility] 2022-06-06 2022-06-06 Outpatient R GWENDOLYN CHAPMAN [facility] [id number] Univers 14:30:00 14:30:00 LEILA ity of [facility] 2022-06-06 2022-06-06 Orders Doctor JENNY 1.2.840.114 [id number] Univers 00:00:00 00:00:00 Only Unassigned, CARL 350.1.13.10 ity of [facility] 4.2.7.2.686 Henrique as [id number] [facility] 009 Branch 2022-06-05 2022-06-05 Emergency X KRISTEL, JOSÉ MIGUEL [facility] ERT 1 [id number] Univers 06:51:00 10:20:00 KRISTELJOSÉ MIGUEL ity of [facility] 2022-06-05 2022-06-05 Emergency Kristel, TRAUMA [id number] Univers 06:51:00 10:20:00 [facility] [id number] [place] [id number] [facility] 014 Branch 2022-05-31 2022-05-31 Emergency X JEREMIAS MOHR [facility] ERT 1 [id number] Univers 13:40:00 19:16:00 JEREMIAS MOHR ity of [facility] 2022-05-31 2022-05-31 Emergency Mohr, TRAUMA 1.2.065.384 [id number] Univers 13:40:00 19:16:00 [facility] 350.1.13.10 [place] [id number] [facility] 014 Branch 2022-05-13 2022-05-13 Outpatient SFA SFA [id number] [place] 08:36:17 08:36:17 [id number] F [place] 2022-04-10 2022-04-11 Outpatient U [facility]ION [facility] [id number] Univers 14:05:00 17:45:00 GEETA ityasmeen [facility] 2022-04-10 2022-04-11 Emergency Bucky Gloria 1.2.840. 114 [id number] Univers 14:05:00 17:45:00 Geeta Young 350.1.13.10 ity of [facility] 4.2.7.2.686 Henrique [id number] [address] 2022-03-27 2022-03-27 Emergency Jens EAST [facility] ERT [id number] Univers 12:34:00 17:18:00 GINI reynoso [facility] 2022-03-27 2022-03-27 Isa East [facility] [id number] Univers 12:34:00 17:18:00 Gini SOSA 350.1.13.10 ity [facility] 4.2.7.2.686 [facility] s [place] [id number] [address] 2022-03-26 2022-03-[address] [facility] [id number] [place] 10:22:23 10:22:23 [id number] F [place] 2022-03-25 2022-03-[address] [facility] [id number] [place] 13:11:32 13:11:32 [id number] F [place] 2022-03-12 2022-03-12 Emergency X NGUYEN, [facility] ERT [id number] Univers 11:38:00 14:36:00 KEV reynoso [facility] 2022-03-12 2022-03-12 Emergency [facility] [id number] Univers 11:38:00 14:36:00 Kevmary ellen SOSA 350.1.13.10 i ty of [place] 4.2.7.2.686 [facility] [id number] [address] 2022-02-27 2022-02-27 Emergency Jens NGUYEN, [facility] ERT [id number] Univers 15:04:00 16:07:00 KEV reynoso [facility] 2022-02-27 2022-02-27 Emergency Nguyen, [facility] [id number] Univers 15:04:00 16:07:00 Kev SOSA 350.1.13.10 i ty of [place] 4.2.7.2.686 [facility] [id number] [address] 2022-02-13 2022-02-13 Emergency X NGUYEN, [facility] ERT [id number] Univers 15:17:00 16:45:00 KEV reynoso [facility] 2022-02-13 2022-02-13 Emergency , [facility] 1.2.574.383 [id number] Univers 15:17:00 16:45:00 Kev SOSA 350.1.13.10 i ty of [place] 4.2.7.2.686 [facility] [id number] [address] 2022-01-30 2022-01-30 Emergency X , [facility] ERT [id number] Univers 10:58:00 13:28:00 KEV reynoso [facility] 2022-01-30 2022-01-30 Emergency Lila Leo [facility] 1.2.840. 114 [id number] Univers 10:58:00 13:28:00 Kev Nguyen 350.1.13.10 ity of [place] 4.2.7.2.686 [facility] [id number] [address] 2022-01-16 2022-01-16 Emergency X , [facility] ERT [id number] Univers 11:43:00 14:30:00 KEV reynoso [facility] 2022-01-16 2022-01-16 Emergency [facility] 1.2.363.810 [id number] Univers 11:43:00 14:30:00 Kev SOSA 350.1.13.10 i ty of [place] 4.2.7.2.686 [facility] [id number] [address] 2022-01-16 2022-01-16 Orders Doctor JENNY 1.2.840.114 [id number] Univers 00:00:00 00:00:00 Only Unassigned, CARL 350.1.13.10 ity of [facility] 4.2.7.2.686 Henrique [id number] [place] [address] Branch 2022-01-12 2022-01-12 Emergency Jens ROMANO, [facility] ERT [id number] Univers 17:45:00 21:44:00 JAQUI reynoso [facility] 2022-01-12 2022-01-12 Emergency Michaela Samuel TRAUMA 1.2.840 .114 [id number] Univers 17:45:00 21:44:00 Jaqui Romano [place] 350.1.13.10 [place] [id number] [facility] 014 Branch 2022-01-12 2022-01-12 Emergency X [facility] ERT [id number] Univers 15:17:00 15:27:00 MAGNOLIA ity [facility] 2022-01-12 2022-01-12 Emergency [facility] 1.2.235.431 [id number] Univers 15:17:00 15:27:00 Magnolia SOSA 350.1.13.10 ity [facility] 4.2.7.2.686 [facility] [id number] [facility] 084 Branch 2022-01-01 2022-01-01 Transition WENCESLAO Fragoso 1.2.840.114 [id number] Univers 00:00:00 00:00:00 of Care Analia AVERY 350.1.13.10 [place] [id number] [facility] 403 Branch 2021-12-25 2021-12-28 Inpatient X TED [facility] NICOLE [id number] Univers 08:38:00 13:08:00 AUGUSTIN reynoso [facility] 2021-12-25 2021-12-28 [facility] Chilo Oliva [facility] 1.2.840. 114 [id number] Univers 08:38:00 13:08:00 Encounter Augustin Jean 350.1.13.10 ity of [facility] 4.2.7.2.686 [facility] [id number] [facility] 081 Branch 2021-12-14 2021-12-14 Emergency [facility] [id number] Univers 14:56:00 18:52:00 MIKE reynoso [facility] 2021-12-14 2021-12-14 [facility] [id number] [id number] Univers 14:56:00 18:52:00 Mike SOSA 350.1.13.10 i ty of [facility] 4.2.7.2.686 [facility] [id number] [facility] 084 Branch 2021-12-07 2021-12-09 Inpatient X SEMAJ [facility] NICOLE [id number] Univers 10:44:00 16:35:00 ALISHA ityasmeen [facility] 2021-12-07 2021-12-09 [facility] Bucky Gloria [facility] 1.2.840.1 [id number] Univers 10:44:00 16:35:00 Encounter Alisha Cha SHEILA 350.1.13.10 ity [facility] 4.2.7.2.686 [facility] [id number] [place] 352511 Branch 2021-11-23 2021-11-23 Emergency X CASI [facility] ERT [id number] Univers 13:42:00 14:58:00 JONNA reynoso [facility] 2021-11-23 2021-11-23 Emergency [facility] 1.2.840.114 [id number] Univers 13:42:00 14:58:00 Jonna SOSA 350.1.13.10 ity [facility] 4.2.7.2.686 [facility] [id number] [place] 352514 [place] 2021-11-09 2021-11-09 Emergency X SINGER [facility] ERT [id number] Univers 14:51:00 16:42:00 KEV reynoso [facility] 2021-11-09 2021-11-09 Emergency Singer [facility] 1.2.086.575 [id number] Univers 14:51:00 16:42:00 Kev SOSA 350.1.13.10 i ty [facility] 4.2.7.2.686 [facility] [id number] [facility] 084 [place] 2021-11-09 2021-11-09 Orders Doctor ALVARADO 1.2.840.114 [id number] Univers 00:00:00 00:00:00 Only Unassigned, CARL 350.1.13.10 ity of [place] [facility] 4.2.7.2.686 Henrique [id number] [facility] 009 Branch 2021-10-18 2021-10-18 Emergency X ASHLEY [facility] ERT [id number] Univers 10:21:00 11:56:00 FOLUSHO ity of [facility] 2021-10-18 2021-10-18 Emergency Ibikunle, TRAUMA 1.2.840.[id number] [facility] 10:21:00 11:56:00 [facility] 350.1.13.10 ity of 4.2.7.2.686 Radha gardner [id number] [address] Results Test Description Test Time Test Comments Results Result Comments Source BASIC METABOLIC PANEL (NA, K, CL, CO2, GLUCOSE, BUN, 2022-05 13:40:36 CREATININE, CA) Test Item Value Reference Range Interpretation Comme nts NA (test code = 1105870537) 138 mmol/L 135-145 K (test code = 6519072444) 4.8 mmol/L 3.5-5.0 CL (test code = 1994556974) 102 mmol/L 98-108 CO2 TOTAL (test code = 2557933330) 32 mmol/L 23-31 H AGAP (test code = 8722748119) 4 2-16 BUN (test code = 2716230888) 45 mg/dL 7-23 H GLUCOSE (test code = 8306984551) 163 mg/dL 70-110 H CREATININE (test code = 2.52 mg/dL 0.60-1.25 H 4549881088) CALCIUM (test code = 2261901956) 8.1 mg/dL 8.6-10.6 L eGFR (test code = 4321789989) 25.8 mL/min/1.73m2 RODRIGO (test code = RODRIGO) Association of Glomerular Filtration Rate (GFR) and Staging of Kidney Disease* + +-------- + ------+| GFR (mL/min/1.73 m2) ?| With Kidney Damage ?| ?Without Kidney Damage+ +-- + +| ?>90 ?| ?Stage one ?| ? Normal ?+ +------- + -------+| ?60-89 ?| ?Stage two ?| ? Decreased GFR ? + +-------- + ------+| ?30-59 ?| ?Stage three ?| ? Stage three ? + +-------- + ------+| ?15-29 ?| ?Stage four ? | ? Stage four ?+ +------- + -------+| ?<15 (or dialysis) ? ?| ?Stage five ? | ? Stage five ?+ +------- + -------+ *Each stage assumes the associated GFR level has been in effect for at least three months. ?Stages 1 to 5, with or without kidney disease, indicate chronic kidney disease. Notes: Determination of stages one and two (with eGFR >59mL/min/1.73 m2) requires estimation of kidney damage for at least three months as defined by structural or functional abnormalities of the kidney, manifested by either:Pathological abnormalities or Markers of kidney damage (including abnormalities in the composition of the blood or urine or abnormalities in imaging tests). Lab Interpretation (test code = Abnormal 99198-2) [facility]70[facility] (ALB,T.PRO,BILI T,BU/BC,ALT,AST,ALK PHOS)2022-06-05 13:40:36 Test Item Value Reference Range Interpretation Comments TOTAL BILI (test code = 8369126486) 0.4 mg/dL 0.1-1.1 BILI UNCON (test code = 3865883701) 0.1 mg/dL 0.1-1.1 BILI CONJ (test code = 2822833327) 0.0 mg/dL 0.0-0.3 T PROTEIN (test code = 2084049083) 6.0 g/dL 6.3-8.2 L ALBUMIN (test code = 9675090768) 2.9 g/dL 3.5-5.0 L ALK PHOS (test code = 7002037039) 71 U/L 34-122 ALTv (test code = 1742-6) 15 U/L 5-50 AST(SGOT) (test code = 4580549845) 23 U/L 13-40 Lab Interpretation (test code = Abnormal 96531-2) [facility] 13:40:36 Test Item Value Reference Range Interpretation Comments LIPASE (test code = 7697967323) 125 U/L 0-220 Lab Interpretation (test code = Normal 57564-0) [facility] THRMPLAS [id number] 13:37:54 Test Item Value Reference Range Interpretation Comments APTT Patient (test code 38 See_Comment H [Au tomated message] = 3173-2) The system whic h generated this result transmitted ref erence range: 26 - 36 Seconds. The reference range was not used to int erpret this result as normal/abnormal . Lab Interpretation (test Abnormal code = 81924-5) [facility] / [id number] 13:37:54 Test Item Value Reference Range Interpretation Comments PROTIME PATIENT (test 13.1 See_Comment H [Auto mated message] code = 5964-2) The system wh ich generated this result transmitted ref erence range: 10.1 - 1 2.6 Seconds. The reference range was not used to int erpret this result as normal/abnormal . INR (test code = 6301-6) 1.2 Nor mal INR <1.1; Warfarin Therap eutic range 2.0 to 3. 0 or 2.5 to 3.5, dep ending upon the indica tions. Lab Interpretation (test Abnormal code = 92309-8) [facility] [id number] 13:31:36 Test Item Value Reference Range Interpretation Comments WBC (test code = 4.39 See_Comment [Automated 6690-2) message] The sy stem which generated this result transmitted reference range : 4.20 - 10.70 10*3/?L. The reference range was not used to interpret this result as normal/abnormal . RBC (test code = 3.48 See_Comment L [Automated 349-8) message] The sy stem which generated this result transmitted reference range : 4.26 - 5.52 10*6/?L. The reference range was not used to interpret this result as normal/abnormal . HGB (test code = 10.2 g/dL 12.2-16.4 L 718-7) HCT (test code = 31.1 % 38.4-49.3 L 4544-3) MCV (test code = 89.4 fL 81.7-95.6 787-2) MCH (test code = 29.3 pg 26.1-32.7 785-6) MCHC (test code = 32.8 g/dL 31.2-35.0 786-4) RDW-SD (test code = 45.2 fL 38.5-51.6 58308-5) RDW-CV (test code = 13.9 % 12.1-15.4 788-0) PLT (test code = 123 See_Comment L [Automated 777-3) message] The sy stem which generated this result transmitted reference range : 150 - 328 10*3/ ?L. The reference r kelin was not used to interpret this result as normal/abnormal . MPV (test code = 9.7 fL 9.8-13.0 L 86672-0) NRBC/100 WBC (test 0.0 See_Comment [Automat ed code = 4947071655) message] The system which generated this result transmitted reference range : 0.0 - 10.0 /100 WBCs. The refer ence range was not u sed to interpret th is result as normal/abnormal . NRBC x10^3 (test code See_Comment [Auto mated = 6451273654) message] The s ystem which generated this result transmitted reference range : 10*3/?L. The reference range was not used to interpret this result as normal/abnormal . GRAN MAT (NEUT) % 74.0 % (test code = 770-8) IMM GRAN % (test code 0.70 % = 3223843289) LYMPH % (test code = 10.9 % 736-9) MONO % (test code = 11.2 % 5905-5) EOS % (test code = 2.7 % 713-8) BASO % (test code = 0.5 % 706-2) GRAN MAT x10^3(ANC) 3.25 10*3/uL 1.99-6.95 (test code = 5309179827) IMM GRAN x10^3 (test 0.03 10*3/uL 0.00-0.06 code = 9545202649) LYMPH x10^3 (test code 0.48 10*3/uL 1.09-3.23 L = 731-0) MONO x10^3 (test code 0.49 10*3/uL 0.36-1.02 = 742-7) EOS x10^3 (test code = 0.12 10*3/uL 0.06-0.53 711-2) BASO x10^3 (test code 0.01-0.09 = 704-7) Lab Interpretation Abnormal (test code = 49639-9) [facility] METABOLIC PANEL (NA, K, CL, CO2, GLUCOSE, BUN, CREATININE, CA)2022-05-31 19:22:56 Test Item Value Reference Range Interpretation Comments NA (test code = 136 mmol/L 135-145 6464376758) K (test code = 5.2 mmol/L 3.5-5.0 H 4777617747) CL (test code = 100 mmol/L 98-108 7440208835) CO2 TOTAL (test code = 29 mmol/L 23-31 9583433315) AGAP (test code = 7 2-16 8011311954) BUN (test code = 49 mg/dL 7-23 H 1808417681) GLUCOSE (test code = 115 mg/dL 70-110 H 0193998857) CREATININE (test code = 2.47 mg/dL 0.60-1.25 H 3691135279) CALCIUM (test code = 8.3 mg/dL 8.6-10.6 L 3152983870) eGFR (test code = 26.4 mL/min/1.73m2 0905259889) RODRIGO (test code = RODRIGO) Association of Glomerular Filtration Rate (GFR) and Staging of Kidney Disease* + --+ --+ ------+| GFR (mL/min/1.73 m2) ?| With Kidney Damage ?| ?Without Kidney Damage+ --------+ --------+ +| ?>90 ?| ?Stage one ?| ? Normal ?+ ---+ ---+ -------+| ?60-89 ?| ?Stage two ?| ? Decreased GFR ? + --+ --+ ------+| ?30-59 ?| ?Stage three ?| ? Stage three ? + --+ --+ ------+| ?15-29 ?| ?Stage four ? | ? Stage four ?+ ---+ ---+ -------+| ?<15 (or dialysis) ? ?| ?Stage five ? | ? Stage five ?+ ---+ ---+ -------+ *Each stage assumes the associated GFR level has been in effect for at least three months. ?Stages 1 to 5, with or without kidney disease, indicate chronic kidney disease. Notes: Determination of stages one and two (with eGFR >59mL/min/1.73 m2) requires estimation of kidney damage for at least three months as defined by structural or functional abnormalities of the kidney, manifested by either:Pathological abnormalities or Markers of kidney damage (including abnormalities in the composition of the blood or urine or abnormalities in imaging tests). Lab Interpretation Abnormal (test code = 82602-6) [facility] WITH [id number] 19:14:12 Test Item Value Reference Range Interpretation Comments WBC (test code = 4.75 See_Comment [Automated 6690-2) message] The sy stem which generated this result transmitted reference range : 4.20 - 10.70 10*3/?L. The reference range was not used to interpret this result as normal/abnormal . RBC (test code = 3.90 See_Comment L [Automated 789-8) message] The sy stem which generated this result transmitted reference range : 4.26 - 5.52 10*6/?L. The reference range was not used to interpret this result as normal/abnormal . HGB (test code = 11.3 g/dL 12.2-16.4 L 718-7) HCT (test code = 35.1 % 38.4-49.3 L 4544-3) MCV (test code = 90.0 fL 81.7-95.6 787-2) MCH (test code = 29.0 pg 26.1-32.7 785-6) MCHC (test code = 32.2 g/dL 31.2-35.0 786-4) RDW-SD (test code = 46.5 fL 38.5-51.6 64850-3) RDW-CV (test code = 14.3 % 12.1-15.4 788-0) PLT (test code = 163 See_Comment [Automated 777-3) message] The sy stem which generated this result transmitted reference range : 150 - 328 10*3/ ?L. The reference r kelin was not used to interpret this result as normal/abnormal . MPV (test code = 9.2 fL 9.8-13.0 L 35125-3) NRBC/100 WBC (test 0.0 See_Comment [Automat ed code = 3933688736) message] The system which generated this result transmitted reference range : 0.0 - 10.0 /100 WBCs. The refer ence range was not u sed to interpret th is result as normal/abnormal . NRBC x10^3 (test code See_Comment [Auto mated = 5562341832) message] The s ystem which generated this result transmitted reference range : 10*3/?L. The reference range was not used to interpret this result as normal/abnormal . GRAN MAT (NEUT) % 73.9 % (test code = 770-8) IMM GRAN % (test code 0.40 % = [id number]) LYMPH % (test code = 13.1 % 736-9) MONO % (test code = 9.1 % 5905-5) EOS % (test code = 2.9 % 713-8) BASO % (test code = 0.6 % 706-2) GRAN MAT x10^3(ANC) 3.51 10*3/uL 1.99-6.95 (test code = [id number]) IMM GRAN x10^3 (test 0.00-0.06 code = [id number]) LYMPH x10^3 (test code 0.62 10*3/uL 1.09-3.23 L = 731-0) MONO x10^3 (test code 0.43 10*3/uL 0.36-1.02 = 742-7) EOS x10^3 (test code = 0.14 10*3/uL 0.06-0.53 711-2) BASO x10^3 (test code 0.03 10*3/uL 0.01-0.09 = 704-7) Lab Interpretation Abnormal (test code = 20399-6) [facility] [id number] 19:12:09 Test Item Value Reference Range Interpretation Comments PROTIME PATIENT (test 12.7 See_Comment H [Auto mated message] code = 5964-2) The system ich generated this result transmitted ref erence range: 10.1 - 1 2.6 Seconds. The reference range was not used to int erpret this result as normal/abnormal . INR (test code = 6301-6) 1.1 Nor mal INR <1.1; Warfarin Therap eutic range 2.0 to 3. 0 or 2.5 to 3.5, dep ending upon the indica tions. Lab Interpretation (test Abnormal code = 48875-1) [facility] [id number] 22:52:46 Test Item Value Reference Range Interpretation Comments BF SEGS% (test 16 % code = 05835-5) BF LYMPHS% (test 50 % code = 96988-9) BF MACROPHAGE% 30 % (test code = 50132-5) BF MESOS% (test 4 % code = 67666-0) BF #CELLS CNTD 100 cells/uL (test code = 6000468853) RODRIGO (test code = Reviewed by HANG WALLACE) , Director of HEMATOPATHOLOGY [facility]Total [facility] Body [id number] 08:10:53 Test Item Value Reference Range Interpretation Comments T.PROT BF (test 3000.0 mg/dL code = 9045066539) UNSPUN BODY FLUID Light Yellow COLOR (test code = 5669236277) UNSPUN BODY FLUID Cloudy CLARITY (test code = 0056679732) SPUN BODY FLUID Light Yellow COLOR (test code = 8060798159) SPUN BODY FLUID Cloudy CLARITY (test code = 6332336680) Sediment (test code The sediment volume is = 4538328497) <0.01 mLs of the total fluid volume of 5 mLs and its color is red. RODRIGO (test code = Test developed and RODRIGO) characteristics determined by [facility] Laboratory Services. [facility] DIRECT [id number] 08:09:17 Test Item Value Reference Range Interpretation Comments BF COLOR (test Yellow code = 8900518680) TURBIDITY (test Turbid code = 5605943941) BF WBC Count 645 See_Comment [Automated (test code = message] The 7100337150) system which generated this result transmitted reference range : /?L. The reference range was not used to interpret this result as normal/abnormal . BF RBC Count See_Comment [Automated (test code = message] The 0897985114) system which generated this result transmitted reference range : /?L. The reference range was not used to interpret this result as normal/abnormal . RODRIGO (test code = The reference range RODRIGO) and other method performance specifications have not been established for this body fluid. ?The test results must be integrated into the clinical context for interpretation. [facility] CenterGLYCOSYLATED HEMOGLOBIN (A1C)2022-04-11 04:15:40 Test Item Value Reference Range Interpretation Comments HGB A1C (test code = 5.0 % 4.0-5.7 4548-4) RODRIGO (test code = RODRIGO) Reference RangesNormal: <5.7%Prediabetes: 5.7 - 6.4%Diabetes: > 6.5% Lab Interpretation (test Normal code = 29028-3) [facility] [id number] 21:53:50 Test Item Value Reference Range Interpretation Comments APTT Patient (test 27 See_Comment [Automat ed code = 3173-2) message] The system which generated this result transmitted reference range : 23 - 38 Seconds . The reference range was not used to interpr et this result as normal/abnormal . RODRIGO (test code = RODRIGO) The [facility] patient population mean normal value for aPTT is 30 seconds. Lab Interpretation Normal (test code = 63198-7) [facility] / [id number] 21:51:52 Test Item Value Reference Range Interpretation Comments PROTIME PATIENT (test 14.5 See_Comment [Auto mated message] code = 5964-2) The system wh ich generated this result transmitted ref erence range: 12.0 - 1 4.7 Seconds. The re ference range was not u sed to interpret this result as normal/abnor mal. INR (test code = 6301-6) 1.2 Nor mal INR <1.1; Warfarin Therap eutic range 2.0 to 3. 0 or 2.5 to 3.5, dep ending upon the indica tions. Lab Interpretation (test Normal code = 62580-3) [facility] CenterCOMP[facility] METABOLIC PANEL (21810)2022-04-10 21:50:30 Test Item Value Reference Range Interpretation Comments NA (test code = 138 mmol/L 135-145 3601354192) K (test code = 4.7 mmol/L 3.5-5.0 9403154271) CL (test code = 114 mmol/L 98-108 H 2439341078) CO2 TOTAL (test code = 21 mmol/L 23-31 L 7014206202) AGAP (test code = 3 2-16 5031266322) BUN (test code = 55 mg/dL 7-23 H 4625079012) GLUCOSE (test code = 119 mg/dL 70-110 H 3169617475) CREATININE (test code = 1.98 mg/dL 0.60-1.25 H 6606105145) TOTAL BILI (test code = 0.7 mg/dL 0.1-1.8 7398948595) CALCIUM (test code = 7.7 mg/dL 8.6-10.6 L 8615076211) T PROTEIN (test code = 6.0 g/dL 6.3-8.2 L 6509491407) ALBUMIN (test code = 2.5 g/dL 3.5-5.0 L 4234073817) ALK PHOS (test code = 85 U/L 34-122 4952800445) ALTv (test code = 23 U/L 5-50 1742-6) AST(SGOT) (test code = 33 U/L 13-40 9735114550) eGFR (test code = 34.1 mL/min/1.73m2 2681418815) RODRIGO (test code = RODRIGO) Association of Glomerular Filtration Rate (GFR) and Staging of Kidney Disease* + --+ --+ ------+| GFR (mL/min/1.73 m2) ?| With Kidney Damage ?| ?Without Kidney Damage+ --------+ --------+ +| ?>90 ?| ?Stage one ?| ? Normal ?+ ---+ ---+ -------+| ?60-89 ?| ?Stage two ?| ? Decreased GFR ? + --+ --+ ------+| ?30-59 ?| ?Stage three ?| ? Stage three ? + --+ --+ ------+| ?15-29 ?| ?Stage four ? | ? Stage four ?+ ---+ ---+ -------+| ?<15 (or dialysis) ? ?| ?Stage five ? | ? Stage five ?+ ---+ ---+ -------+ *Each stage assumes the associated GFR level has been in effect for at least three months. ?Stages 1 to 5, with or without kidney disease, indicate chronic kidney disease. Notes: Determination of stages one and two (with eGFR >59mL/min/1.73 m2) requires estimation of kidney damage for at least three months as defined by structural or functional abnormalities of the kidney, manifested by either:Pathological abnormalities or Markers of kidney damage (including abnormalities in the composition of the blood or urine or abnormalities in imaging tests). Lab Interpretation Abnormal (test code = 56203-8) [facility] WITH [id number] 21:35:48 Test Item Value Reference Range Interpretation Comments WBC (test code = 4.62 See_Comment [Automated 6690-2) message] The sy stem which generated this result transmitted reference range : 4.20 - 10.70 10*3/?L. The reference range was not used to interpret this result as normal/abnormal . RBC (test code = 4.08 See_Comment L [Automated 789-8) message] The sy stem which generated this result transmitted reference range : 4.26 - 5.52 10*6/?L. The reference range was not used to interpret this result as normal/abnormal . HGB (test code = 11.4 g/dL 12.2-16.4 L 718-7) HCT (test code = 34.3 % 38.4-49.3 L 4544-3) MCV (test code = 84.1 fL 81.7-95.6 787-2) MCH (test code = 27.9 pg 26.1-32.7 785-6) MCHC (test code = 33.2 g/dL 31.2-35.0 786-4) RDW-SD (test code = 50.8 fL 38.5-51.6 48747-2) RDW-CV (test code = 16.6 % 12.1-15.4 H 788-0) PLT (test code = 170 See_Comment [Automated 777-3) message] The sy stem which generated this result transmitted reference range : 150 - 328 10*3/ ?L. The reference r kelin was not used to interpret this result as normal/abnormal . MPV (test code = 9.2 fL 9.8-13.0 L 38746-2) NRBC/100 WBC (test 0.0 See_Comment [Automat ed code = 2160900733) message] The system which generated this result transmitted reference range : 0.0 - 10.0 /100 WBCs. The refer ence range was not u sed to interpret th is result as normal/abnormal . NRBC x10^3 (test code See_Comment [Auto mated = 9790983942) message] The s ystem which generated this result transmitted reference range : 10*3/?L. The reference range was not used to interpret this result as normal/abnormal . GRAN MAT (NEUT) % 73.6 % (test code = 770-8) IMM GRAN % (test code 1.30 % = 6287626712) LYMPH % (test code = 12.6 % 736-9) MONO % (test code = 8.9 % 5905-5) EOS % (test code = 3.2 % 713-8) BASO % (test code = 0.4 % 706-2) GRAN MAT x10^3(ANC) 3.40 10*3/uL 1.99-6.95 (test code = 7070526527) IMM GRAN x10^3 (test 0.06 10*3/uL 0.00-0.06 code = 5002386009) LYMPH x10^3 (test code 0.58 10*3/uL 1.09-3.23 L = 731-0) MONO x10^3 (test code 0.41 10*3/uL 0.36-1.02 = 742-7) EOS x10^3 (test code = 0.15 10*3/uL 0.06-0.53 711-2) BASO x10^3 (test code 0.01-0.09 = 704-7) Lab Interpretation Abnormal (test code = 00003-6) [facility] [id number] 09:54:12SPECIMEN NUMBER: [id number] CULTURE, URINE SPECIMEN NUMBER: [id number] SPECIMEN COMMENT: URINE SOURCE:URINE REPORT STATUS: FINAL FINAL REPORT: 03/28/2022 10-50,000 CFU/ML UROGENITAL ANUPAM PRESENT NO COMMON [id number] 04:49:09 Test Item Value Reference Range Interpretation Comments MAGNESIUM (test code = 2226) 2.2 MG/DL 1.6-2.6 COMPREHENSIVE METABOLIC [id number] 04:36:10 Test Item Value Reference Range Interpretation Comments GLUCOSE (test code = 96 MG/DL 70-99 2217) BUN (test code = 39 MG/DL 8-23 H 2207) CREATININE (test 2.06 MG/DL 0.80-1.40 H code = 2213) eGFR (2020 CKD-EPI) 35 ML/MIN/1.73 >60 L (test code = 12898) CALC BUN/CREAT (test 19 RATIO 6-28 code = 223) SODIUM (test code = 141 MEQ/L 920-670 5348) POTASSIUM (test code 4.3 MEQ/L 3.5-5.4 = 2227) CHLORIDE (test code 110 MEQ/L 95-107 H = 2214) CARBON DIOXIDE (test 20 MEQ/L 19-31 code = 2205) CALCIUM (test code = 8.3 MG/DL 8.5-10.5 L 2208) PROTEIN, TOTAL (test 5.6 G/DL 6.1-8.3 L code = 2228) ALBUMIN (test code = 2.5 G/DL 3.5-5.2 L 2200) CALC GLOBULIN (test 3.1 G/DL 1.9-3.7 code = 2239) CALC A/G RATIO (test 0.8 RATIO 1.0-2.6 L code = 2233) BILIRUBIN, TOTAL 0.4 MG/DL See_Comment [Automated message] (test code = 2206) The syste m which generated this result transmit ros reference range : <=1.2. The refe rence range was not u sed to interpret th is result as normal/abnormal . ALKALINE PHOSPHATASE 94 U/L 40-123 (test code = 2203) AST (test code = 20 U/L 9-50 2217) ALT (test code = 16 U/L 5-50 2218) CBC W/AUTO DIFF WITH [id number] 02:15:32 Test Item Value Reference Range Interpretation Comments WBC (test code = 5.0 K/UL 3.5-11.0 1001) RBC (test code = 4.10 M/UL 4.50-6.10 L 1002) HEMOGLOBIN (test 11.5 G/DL 13.5-17.0 L code = 1003) HEMATOCRIT (test 34.5 % 40.0-51.0 L code = 1004) MCV (test code = 84.1 fL 80.0-99.0 1005) MCH (test code = 28.0 PG 25.0-33.0 1006) MCHC (test code = 33.3 G/DL 31.0-36.0 1007) RDW (test code = 15.3 % 11.5-15.0 H 1038) NEUTROPHILS (test 76.0 % code = 1008) LYMPHOCYTES (test 12.5 % code = 1010) MONOCYTES (test code 8.1 % = 1011) EOSINOPHILS (test 2.6 % code = 1012) BASOPHILS (test code 0.4 % = 1013) IMMATURE 0.4 % GRANULOCYTES (test code = 1036) NUCLEATED RBCS (test 0.0 /100 See_Comment [Autom ated message] code = 1065) WBC'S The system [employer] generated this result transmitted ref erence range: 0.0. The reference range was not used to int erpret this result as normal/abnormal . PLATELET COUNT (test 164 K/UL 130-400 code = 1015) ABSOLUTE NEUTROPHILS 3.76 K/UL 1.50-7.50 (test code = 1066) ABSOLUTE LYMPHOCYTES 0.62 K/UL 1.00-4.00 L (test code = 1067) ABSOLUTE MONOCYTES 0.40 K/UL 0.20-1.00 (test code = 1068) ABSOLUTE EOSINOPHILS 0.13 K/UL 0.00-0.50 (test code = 1040) ABSOLUTE BASOPHILS 0.02 K/UL 0.00-0.20 (test code = 1069) ABS IMMATURE 0.02 K/UL 0.00-0.10 GRANULOCYTES (test code = 1020) ABS NUCLEATED RBCS 0.00 K/UL 0.00-0.11 UNLESS O THERWISE (test code = 44639) INDICATE D, ALL TESTING PERFORM ED ATCL[facility], [place] [facility] [place] [address] [facility] DIRECTOR: SHERRI PLASENCIA M.D. CLIA NUMBER [id number] CAP ACCREDITATION N O. [id number] COMP. METABOLIC PANEL (02182)2022 01:50:35 Test Item Value Reference Range Interpretation Comments NA (test code = 136 mmol/L 135-145 1582216161) K (test code = 5.2 mmol/L 3.5-5.0 H 2934847369) CL (test code = 102 mmol/L 98-108 3765264596) CO2 TOTAL (test code = 26 mmol/L 23-31 1749938243) AGAP (test code = 2-16 4546738706) BUN (test code = 49 mg/dL 7-23 H 6122167942) GLUCOSE (test code = 143 mg/dL 70-110 H 3168425365) CREATININE (test code = 2.26 mg/dL 0.60-1.25 H 7814169871) TOTAL BILI (test code = 0.4 mg/dL 0.1-1.6 5636773231) CALCIUM (test code = 8.2 mg/dL 8.6-10.6 L 0642793901) T PROTEIN (test code = 6.8 g/dL 6.3-8.2 5022079957) ALBUMIN (test code = 2.9 g/dL 3.5-5.0 L 4175849643) ALK PHOS (test code = 101 U/L 34-122 0477830099) ALTv (test code = 14 U/L 5-50 1742-6) AST(SGOT) (test code = 21 U/L 13-40 0962241476) eGFR (test code = mL/min/1.73m2 9172180883) RODRIGO (test code = RODRIGO) Association of Glomerular Filtration Rate (GFR) and Staging of Kidney Disease* + --+ --+ ------+| GFR (mL/min/1.73 m2) ?| With Kidney Damage ?| ?Without Kidney Damage+ --------+ --------+ +| ?>90 ?| ?Stage one ?| ? Normal ?+ ---+ ---+ -------+| ?60-89 ?| ?Stage two ?| ? Decreased GFR ? + --+ --+ ------+| ?30-59 ?| ?Stage three ?| ? Stage three ? + --+ --+ ------+| ?15-29 ?| ?Stage four ? | ? Stage four ?+ ---+ ---+ -------+| ?<15 (or dialysis) ? ?| ?Stage five ? | ? Stage five ?+ ---+ ---+ -------+ *Each stage assumes the associated GFR level has been in effect for at least three months. ?Stages 1 to 5, with or without kidney disease, indicate chronic kidney disease. Notes: Determination of stages one and two (with eGFR >59mL/min/1.73 m2) requires estimation of kidney damage for at least three months as defined by structural or functional abnormalities of the kidney, manifested by either:Pathological abnormalities or Markers of kidney damage (including abnormalities in the composition of the blood or urine or abnormalities in imaging tests). Lab Interpretation Abnormal (test code = 70033-0) [facility] / [id number] 01:37:54 Test Item Value Reference Range Interpretation Comments PROTIME PATIENT (test See_Comment H [Auto mated message] code = 5964-2) The system [employer] ich generated this result transmitted ref erence range: 10.1 - 1 2.6 Seconds. The reference range was not used to int erpret this result as normal/abnormal . INR (test code = 6301-6) Nor mal INR <1.1; Warfarin Therap eutic range 2.0 to 3. 0 or 2.5 to 3.5, dep ending upon the indica tions. Lab Interpretation (test Abnormal code = 08882-9) [facility] [id number] 01:37:54 Test Item Value Reference Range Interpretation Comments APTT Patient (test code See_Comment H [Au tomated message] = 3173-2) The system [employer] h generated this result transmitted ref erence range: 26 - 36 Seconds. The reference range was not used to int erpret this result as normal/abnormal . Lab Interpretation (test Abnormal code = 66872-5) [facility] WITH [id number] 01:33:12 Test Item Value Reference Range Interpretation Comments WBC (test code = See_Comment [Automated 6690-2) message] The sy stem which generated this result transmitted reference range : 4.20 - 10.70 10*3/?L. The reference range was not used to interpret this result as normal/abnormal . RBC (test code = See_Comment L [Automated 789-8) message] The sy stem which generated this result transmitted reference range : 4.26 - 5.52 10*6/?L. The reference range was not used to interpret this result as normal/abnormal . HGB (test code = 10.1 g/dL 12.2-16.4 L 718-7) HCT (test code = 31.5 % 38.4-49.3 L 4544-3) MCV (test code = 78.0 fL 81.7-95.6 L 787-2) MCH (test code = 25.0 pg 26.1-32.7 L 785-6) MCHC (test code = 32.1 g/dL 31.2-35.0 786-4) RDW-SD (test code = 54.2 fL 38.5-51.6 H 74994-2) RDW-CV (test code = 19.4 % 12.1-15.4 H 788-0) PLT (test code = See_Comment [Automated 777-3) message] The sy stem which generated this result transmitted reference range : 150 - 328 10*3/ ?L. The reference r kelin was not used to interpret this result as normal/abnormal . MPV (test code = 9.2 fL 9.8-13.0 L 11318-1) NRBC/100 WBC (test See_Comment [Automat ed code = 0695228910) message] The system which generated this result transmitted reference range : 0.0 - 10.0 /100 WBCs. The refer ence range was not u sed to interpret th is result as normal/abnormal . NRBC x10^3 (test code See_Comment [Auto mated = 2603205031) message] The s ystem which generated this result transmitted reference range : 10*3/?L. The reference range was not used to interpret this result as normal/abnormal . GRAN MAT (NEUT) % 75.8 % (test code = 770-8) IMM GRAN % (test code 0.80 % = 9076830222) LYMPH % (test code = 12.1 % 736-9) MONO % (test code = 8.3 % 5905-5) EOS % (test code = 2.5 % 713-8) BASO % (test code = 0.5 % 706-2) GRAN MAT x10^3(ANC) 4.56 10*3/uL 1.99-6.95 (test code = 7594306556) IMM GRAN x10^3 (test 0.05 10*3/uL 0.00-0.06 code = 6154572819) LYMPH x10^3 (test code 0.73 10*3/uL 1.09-3.23 L = 731-0) MONO x10^3 (test code 0.50 10*3/uL 0.36-1.02 = 742-7) EOS x10^3 (test code = 0.15 10*3/uL 0.06-0.53 711-2) BASO x10^3 (test code 0.03 10*3/uL 0.01-0.09 = 704-7) Lab Interpretation Abnormal (test code = 33207-8) [facility]2021-12-28 13:35:14 Test Item Value Reference Range Interpretation Comments POCT GLU (test code = 2144585923) 160 mg/dL 70-110 H Lab Interpretation (test code = Abnormal 36945-7) [facility] METABOLIC PANEL (NA, K, CL, CO2, GLUCOSE, BUN, CREATININE, CA)2021-12-28 09:59:31 Test Item Value Reference Range Interpretation Comments NA (test code = 135 mmol/L 135-145 7026797340) K (test code = 3.8 mmol/L 3.5-5 0795534859) CL (test code = 107 mmol/L 98-108 7685487491) CO2 TOTAL (test code = 25 mmol/L 23-31 2843566051) AGAP (test code = 2-16 5510583344) BUN (test code = 42 mg/dL 7-23 H 8110860641) GLUCOSE (test code = 150 mg/dL 70-110 H 5136754224) CREATININE (test code = 2.01 mg/dL 0.6-1.25 H 8020070697) CALCIUM (test code = 7.6 mg/dL 8.6-10.6 L 5666328902) eGFR (test code = mL/min/1.73m2 2397755358) RODRIGO (test code = RODRIGO) Association of Glomerular Filtration Rate (GFR) and Staging of Kidney Disease* + --+ --+ ------+| GFR (mL/min/1.73 m2) ?| With Kidney Damage ?| ?Without Kidney Damage+ --------+ --------+ +| ?>90 ?| ?Stage one ?| ? Normal ?+ ---+ ---+ -------+| ?60-89 ?| ?Stage two ?| ? Decreased GFR ? + --+ --+ ------+| ?30-59 ?| ?Stage three ?| ? Stage three ? + --+ --+ ------+| ?15-29 ?| ?Stage four ? | ? Stage four ?+ ---+ ---+ -------+| ?<15 (or dialysis) ? ?| ?Stage five ? | ? Stage five ?+ ---+ ---+ -------+ *Each stage assumes the associated GFR level has been in effect for at least three months. ?Stages 1 to 5, with or without kidney disease, indicate chronic kidney disease. Notes: Determination of stages one and two (with eGFR >59mL/min/1.73 m2) requires estimation of kidney damage for at least three months as defined by structural or functional abnormalities of the kidney, manifested by either:Pathological abnormalities or Markers of kidney damage (including abnormalities in the composition of the blood or urine or abnormalities in imaging tests). Lab Interpretation Abnormal (test code = 16154-7) [facility] WITH [id number] 09:37:28 Test Item Value Reference Range Interpretation Comments WBC (test code = See_Comment L [Automated 6790-2) message] The sy stem which generated this result transmitted reference range : 4.20 - 10.70 10*3/?L. The reference range was not used to interpret this result as normal/abnormal . RBC (test code = See_Comment L [Automated 789-8) message] The sy stem which generated this result transmitted reference range : 4.26 - 5.52 10*6/?L. The reference range was not used to interpret this result as normal/abnormal . HGB (test code = 8.4 g/dL 12.2-16.4 L 718-7) HCT (test code = 26.0 % 38.4-49.3 L 4544-3) MCV (test code = 74.7 fL 81.7-95.6 L 787-2) MCH (test code = 24.1 pg 26.1-32.7 L 785-6) MCHC (test code = 32.3 g/dL 31.2-35 786-4) RDW-SD (test code = 52.0 fL 38.5-51.6 H 80362-0) RDW-CV (test code = 19.2 % 12.1-15.4 H 788-0) PLT (test code = See_Comment [Automated 777-3) message] The sy stem which generated this result transmitted reference range : 150 - 328 10*3/ ?L. The reference r kelin was not used to interpret this result as normal/abnormal . MPV (test code = 9.6 fL 9.8-13 L 53800-2) NRBC/100 WBC (test See_Comment [Automat ed code = 6720640413) message] The system which generated this result transmitted reference range : 0.0 - 10.0 /100 WBCs. The refer ence range was not u sed to interpret th is result as normal/abnormal . NRBC x10^3 (test code See_Comment [Auto mated = 2442621029) message] The s ystem which generated this result transmitted reference range : 10*3/?L. The reference range was not used to interpret this result as normal/abnormal . GRAN MAT (NEUT) % 75.3 % (test code = 770-8) IMM GRAN % (test code 0.60 % = 6732904048) LYMPH % (test code = 11.9 % 736-9) MONO % (test code = 9.6 % 5905-5) EOS % (test code = 2.3 % 713-8) BASO % (test code = 0.3 % 706-2) GRAN MAT x10^3(ANC) 2.34 10*3/uL 1.99-6.95 (test code = 2610652175) IMM GRAN x10^3 (test 0-0.06 code = 1128397686) LYMPH x10^3 (test code 0.37 10*3/uL 1.09-3.23 L = 731-0) MONO x10^3 (test code 0.30 10*3/uL 0.36-1.02 L = 742-7) EOS x10^3 (test code = 0.07 10*3/uL 0.06-0.53 711-2) BASO x10^3 (test code 0.01-0.09 = 704-7) Lab Interpretation Abnormal (test code = 15744-6) [facility] GLUCOSE (AUTOMATED)2021-12-28 00:57:50 Test Item Value Reference Range Interpretation Comments POCT GLU (test code = 6574783839) 146 mg/dL 70-110 H Lab Interpretation (test code = Abnormal 71210-6) [facility] GLUCOSE (AUTOMATED)2021-12-27 21:58:17 Test Item Value Reference Range Interpretation Comments POCT GLU (test code = 8146128235) 125 mg/dL 70-110 H Lab Interpretation (test code = Abnormal 69234-7) [facility] GLUCOSE (AUTOMATED)2021-12-27 16:47:36 Test Item Value Reference Range Interpretation Comments POCT GLU (test code = 5873902131) 121 mg/dL 70-110 H Lab Interpretation (test code = Abnormal 59845-5) [facility] GLUCOSE (AUTOMATED)2021-12-27 12:53:58 Test Item Value Reference Range Interpretation Comments POCT GLU (test code = 9287304472) 114 mg/dL 70-110 H Lab Interpretation (test code = Abnormal 97270-7) [facility] GLUCOSE (AUTOMATED)2021-12-27 01:17:27 Test Item Value Reference Range Interpretation Comments POCT GLU (test code = 8894258016) 184 mg/dL 70-110 H Lab Interpretation (test code = Abnormal 39994-2) [facility] 21:25:07 Test Item Value Reference Range Interpretation Comments POCT GLU (test code = 7123507564) 151 mg/dL 70-110 H Lab Interpretation (test code = Abnormal 59841-9) [facility] GLUCOSE (AUTOMATED)2021-12-26 17:40:52 Test Item Value Reference Range Interpretation Comments POCT GLU (test code = 6754979948) 148 mg/dL 70-110 H Lab Interpretation (test code = Abnormal 89692-5) [facility] GLUCOSE (AUTOMATED)2021-12-26 12:54:00 Test Item Value Reference Range Interpretation Comments POCT GLU (test code = 2041872870) 150 mg/dL 70-110 H Lab Interpretation (test code = Abnormal 81655-8) [facility] GLUCOSE (AUTOMATED)2021-12-26 10:22:39 Test Item Value Reference Range Interpretation Comments POCT GLU (test code = 2614704209) 150 mg/dL 70-110 H Lab Interpretation (test code = Abnormal 49051-0) [facility] GLUCOSE (AUTOMATED)2021-12-26 01:21:28 Test Item Value Reference Range Interpretation Comments POCT GLU (test code = 0008764711) 136 mg/dL 70-110 H Lab Interpretation (test code = Abnormal 80615-5) [facility] METABOLIC PANEL (NA, K, CL, CO2, GLUCOSE, BUN, CREATININE, CA)2021-12-14 22:24:31 Test Item Value Reference Range Interpretation Comments NA (test code = 135 mmol/L 135-145 4573343241) K (test code = 5.5 mmol/L 3.5-5 H [id number]) CL (test code = 105 mmol/L 98-108 [id number]) CO2 TOTAL (test code = 21 mmol/L 23-31 L [id number]) AGAP (test code = 2-16 [id number]) BUN (test code = 44 mg/dL 7-23 H [id number]) GLUCOSE (test code = 164 mg/dL 70-110 H [id number]) CREATININE (test code = 1.79 mg/dL 0.6-1.25 H [id number]) CALCIUM (test code = 7.9 mg/dL 8.6-10.6 L [id number]) eGFR (test code = mL/min/1.73m2 [id number]) RODRIGO (test code = RODRIGO) Association of Glomerular Filtration Rate (GFR) and Staging of Kidney Disease* + --+ --+ ------+| GFR (mL/min/1.73 m2) ?| With Kidney Damage ?| ?Without Kidney Damage+ --------+ --------+ +| ?>90 ?| ?Stage one ?| ? Normal ?+ ---+ ---+ -------+| ?60-89 ?| ?Stage two ?| ? Decreased GFR ? + --+ --+ ------+| ?30-59 ?| ?Stage three ?| ? Stage three ? + --+ --+ ------+| ?15-29 ?| ?Stage four ? | ? Stage four ?+ ---+ ---+ -------+| ?<15 (or dialysis) ? ?| ?Stage five ? | ? Stage five ?+ ---+ ---+ -------+ *Each stage assumes the associated GFR level has been in effect for at least three months. ?Stages 1 to 5, with or without kidney disease, indicate chronic kidney disease. Notes: Determination of stages one and two (with eGFR >59mL/min/1.73 m2) requires estimation of kidney damage for at least three months as defined by structural or functional abnormalities of the kidney, manifested by either:Pathological abnormalities or Markers of kidney damage (including abnormalities in the composition of the blood or urine or abnormalities in imaging tests). Lab Interpretation Abnormal (test code = 89540-7) [facility] WITH [id number] 22:14:09 Test Item Value Reference Range Interpretation Comments WBC (test code = See_Comment [Automated 6690-2) message] The sy stem which generated this result transmitted reference range : 4.20 - 10.70 10*3/?L. The reference range was not used to interpret this result as normal/abnormal . RBC (test code = See_Comment L [Automated 789-8) message] The sy stem which generated this result transmitted reference range : 4.26 - 5.52 10*6/?L. The reference range was not used to interpret this result as normal/abnormal . HGB (test code = 9.5 g/dL 12.2-16.4 L 718-7) HCT (test code = 28.8 % 38.4-49.3 L 4544-3) MCV (test code = 72.5 fL 81.7-95.6 L 787-2) MCH (test code = 23.9 pg 26.1-32.7 L 785-6) MCHC (test code = 33.0 g/dL 31.2-35 786-4) RDW-SD (test code = 52.1 fL 38.5-51.6 H 41662-8) RDW-CV (test code = 20.0 % 12.1-15.4 H 788-0) PLT (test code = See_Comment [Automated 777-3) message] The sy stem which generated this result transmitted reference range : 150 - 328 10*3/ ?L. The reference r kelin was not used to interpret this result as normal/abnormal . MPV (test code = 9.8 fL 9.8-13 03967-5) NRBC/100 WBC (test See_Comment [Automat ed code = 0298491699) message] The system which generated this result transmitted reference range : 0.0 - 10.0 /100 WBCs. The refer ence range was not u sed to interpret th is result as normal/abnormal . NRBC x10^3 (test code See_Comment [Auto mated = 9927082090) message] The s ystem which generated this result transmitted reference range : 10*3/?L. The reference range was not used to interpret this result as normal/abnormal . GRAN MAT (NEUT) % 79.6 % (test code = 770-8) IMM GRAN % (test code 0.90 % = 0769746871) LYMPH % (test code = 10.6 % 736-9) MONO % (test code = 7.4 % 5905-5) EOS % (test code = 1.2 % 713-8) BASO % (test code = 0.3 % 706-2) GRAN MAT x10^3(ANC) 4.60 10*3/uL 1.99-6.95 (test code = 7177478949) IMM GRAN x10^3 (test 0.05 10*3/uL 0-0.06 code = 8384715270) LYMPH x10^3 (test code 0.61 10*3/uL 1.09-3.23 L = 731-0) MONO x10^3 (test code 0.43 10*3/uL 0.36-1.02 = 742-7) EOS x10^3 (test code = 0.07 10*3/uL 0.06-0.53 711-2) BASO x10^3 (test code 0.01-0.09 = 704-7) Lab Interpretation Abnormal (test code = 09587-6) [facility] GLUCOSE (AUTOMATED)2021-12-09 16:40:51 Test Item Value Reference Range Interpretation Comments POCT GLU (test code = 1241203497) 200 mg/dL 70-110 H Lab Interpretation (test code = Abnormal 91085-4) [facility] GLUCOSE (AUTOMATED)2021-12-09 12:53:24 Test Item Value Reference Range Interpretation Comments POCT GLU (test code = 9774964432) 197 mg/dL 70-110 H Lab Interpretation (test code = Abnormal 54974-2) [facility] GLUCOSE (AUTOMATED)2021-12-09 01:58:46 Test Item Value Reference Range Interpretation Comments POCT GLU (test code = 2249689226) 138 mg/dL 70-110 H Lab Interpretation (test code = Abnormal 42511-9) [facility] GLUCOSE (AUTOMATED)2021-12-08 22:02:54 Test Item Value Reference Range Interpretation Comments POCT GLU (test code = 5292169895) 123 mg/dL 70-110 H Lab Interpretation (test code = Abnormal 92023-5) [facility] GLUCOSE (AUTOMATED)2021-12-08 17:18:39 Test Item Value Reference Range Interpretation Comments POCT GLU (test code = 2847917687) 200 mg/dL 70-110 H Lab Interpretation (test code = Abnormal 07687-1) [facility] GLUCOSE (AUTOMATED)2021-12-08 14:20:51 Test Item Value Reference Range Interpretation Comments POCT GLU (test code = 2535104918) 189 mg/dL 70-110 H Lab Interpretation (test code = Abnormal 85727-9) [facility] GLUCOSE (AUTOMATED)2021-12-08 02:14:54 Test Item Value Reference Range Interpretation Comments POCT GLU (test code = 3602780344) 276 mg/dL 70-110 H Lab Interpretation (test code = Abnormal 63851-6) [facility] 00:06:25 Test Item Value Reference Range Interpretation Comments HGB A1C (test code = 6.6 % 4-5.7 H 4548-4) RODRIGO (test code = RODRIGO) Reference RangesNormal: <5.7%Prediabetes: 5.7 - 6.4%Diabetes: > 6.5% Lab Interpretation (test Abnormal code = 41173-8) [facility] [id number] 23:59:59 Test Item Value Reference Range Interpretation Comments MAGNESIUM (test code = 5202621557) 2.6 mg/dL 1.7-2.4 H Lab Interpretation (test code = Abnormal 17737-9) [facility] (Total Cholesterol, Triglycerides, HDL) - [id number] 23:59:59 Test Item Value Reference Range Interpretation Comments CHOL (test code = 106 mg/dL 120-200 L 7232922388) HDL (test code = 20 mg/dL See_Comment L [Automated message] 8961038306) The system [employer] generated this result transmit ros reference range : >=40. The refer ence range was not u sed to interpret th is result as normal/abnormal . HDLC RATIO (test code = See_Comment H [Au tomated message] 8013486622) The system [employer] generated this result transmit ros reference range : <=5.0. The refe rence range was not u sed to interpret th is result as normal/abnormal . TRIG (test code = 86 mg/dL 30-170 1109521086) LDL CHOL (test code = 69 mg/dL See_Comment [Auto mated message] 41257-9) The system [employer] generated this result transmit ros reference range : <=160. The refe rence range was not u sed to interpret th is result as normal/abnormal . VLDL (test code = 17 mg/dL 5-60 1141261423) Lab Interpretation (test Abnormal code = 03805-5) [facility] [id number] 23:59:39 Test Item Value Reference Range Interpretation Comments PHOSPHORUS (test code = 0679068615) 4.9 mg/dL 2.5-5 Lab Interpretation (test code = Normal 99279-4) [facility]AL [id number] 21:09:22 Test Item Value Reference Range Interpretation Comments NT-proBNP (test code 1600 pg/mL See_Comment H [Autom ated = 2060140723) message] The system which generated this result transmitted reference range : <=125. The reference range was not used to interpret this result as normal/abnormal . RODRIGO (test code = RODRIGO) Biotin has been reported to cause a negative bias, interpret results relative to patient's use of biotin. Lab Interpretation Abnormal (test code = 76232-0) [facility] [id number] 19:56:54 Test Item Value Reference Range Interpretation Comments CK (test code = 0570834118) 28 U/L 33-194 L Lab Interpretation (test code = Abnormal 42772-4) [facility] (40435)2021-12-07 16:38:09 Test Item Value Reference Range Interpretation Comments NA (test code = 137 mmol/L 135-145 6624635560) K (test code = 5.4 mmol/L 3.5-5 H 5254250116) CL (test code = 106 mmol/L 98-108 0478330910) CO2 TOTAL (test code = 23 mmol/L 23-31 8467656437) AGAP (test code = 2-16 9036131942) BUN (test code = 49 mg/dL 7-23 H 0613130508) GLUCOSE (test code = 154 mg/dL 70-110 H 5569866278) CREATININE (test code = 2.34 mg/dL 0.6-1.25 H 1470262868) TOTAL BILI (test code = 0.6 mg/dL 0.1-1.1 3158066307) CALCIUM (test code = 8.0 mg/dL 8.6-10.6 L 8127373957) T PROTEIN (test code = 6.1 g/dL 6.3-8.2 L 6243878093) ALBUMIN (test code = 2.5 g/dL 3.5-5 L 9912819426) ALK PHOS (test code = 100 U/L 34-122 4079440778) ALTv (test code = 15 U/L 5-50 1742-6) AST(SGOT) (test code = 23 U/L 13-40 4141055182) eGFR (test code = mL/min/1.73m2 3637099205) RODRIGO (test code = RODRIGO) Association of Glomerular Filtration Rate (GFR) and Staging of Kidney Disease* + --+ --+ ------+| GFR (mL/min/1.73 m2) ?| With Kidney Damage ?| ?Without Kidney Damage+ --------+ --------+ +| ?>90 ?| ?Stage one ?| ? Normal ?+ ---+ ---+ -------+| ?60-89 ?| ?Stage two ?| ? Decreased GFR ? + --+ --+ ------+| ?30-59 ?| ?Stage three ?| ? Stage three ? + --+ --+ ------+| ?15-29 ?| ?Stage four ? | ? Stage four ?+ ---+ ---+ -------+| ?<15 (or dialysis) ? ?| ?Stage five ? | ? Stage five ?+ ---+ ---+ -------+ *Each stage assumes the associated GFR level has been in effect for at least three months. ?Stages 1 to 5, with or without kidney disease, indicate chronic kidney disease. Notes: Determination of stages one and two (with eGFR >59mL/min/1.73 m2) requires estimation of kidney damage for at least three months as defined by structural or functional abnormalities of the kidney, manifested by either:Pathological abnormalities or Markers of kidney damage (including abnormalities in the composition of the blood or urine or abnormalities in imaging tests). Lab Interpretation Abnormal (test code = 16859-0) [facility] [id number] 16:37:12 Test Item Value Reference Range Interpretation Comments APTT Patient (test See_Comment [Automat ed code = 3173-2) message] The system which generated this result transmitted reference range : 23 - 38 Seconds . The reference range was not used to interpr et this result as normal/abnormal . RODRIGO (test code = RODRIGO) The [facility] patient population mean normal value for aPTT is 30 seconds. Lab Interpretation Normal (test code = 30560-3) [facility] CenterPROT[facility] / [id number] 16:35:10 Test Item Value Reference Range Interpretation Comments PROTIME PATIENT (test See_Comment H [Auto mated message] code = 5964-2) The system wh ich generated this result transmitted ref erence range: 12.0 - 1 4.7 Seconds. The reference range was not used to int erpret this result as normal/abnormal . INR (test code = 6301-6) Nor mal INR <1.1; Warfarin Therap eutic range 2.0 to 3. 0 or 2.5 to 3.5, dep ending upon the indica tions. Lab Interpretation (test Abnormal code = 54204-1) [facility] WITH [id number] 16:11:30 Test Item Value Reference Range Interpretation Comments WBC (test code = See_Comment [Automated 6690-2) message] The sy stem which generated this result transmitted reference range : 4.20 - 10.70 10*3/?L. The reference range was not used to interpret this result as normal/abnormal . RBC (test code = See_Comment [Automated 789-8) message] The sy stem which generated this result transmitted reference range : 4.26 - 5.52 10*6/?L. The reference range was not used to interpret this result as normal/abnormal . HGB (test code = 10.3 g/dL 12.2-16.4 L 718-7) HCT (test code = 32.4 % 38.4-49.3 L 4544-3) MCV (test code = 74.1 fL 81.7-95.6 L 787-2) MCH (test code = 23.6 pg 26.1-32.7 L 785-6) MCHC (test code = 31.8 g/dL 31.2-35 786-4) RDW-SD (test code = 53.5 fL 38.5-51.6 H 01190-6) RDW-CV (test code = 20.5 % 12.1-15.4 H 788-0) PLT (test code = See_Comment [Automated 777-3) message] The sy stem which generated this result transmitted reference range : 150 - 328 10*3/ ?L. The reference r kelin was not used to interpret this result as normal/abnormal . MPV (test code = 10.0 fL 9.8-13 98033-7) NRBC/100 WBC (test See_Comment [Automat ed code = 0253613749) message] The system which generated this result transmitted reference range : 0.0 - 10.0 /100 WBCs. The refer ence range was not u sed to interpret th is result as normal/abnormal . NRBC x10^3 (test code See_Comment [Auto mated = 0587639674) message] The s ystem which generated this result transmitted reference range : 10*3/?L. The reference range was not used to interpret this result as normal/abnormal . GRAN MAT (NEUT) % 82.5 % (test code = 770-8) IMM GRAN % (test code 0.90 % = 9425156439) LYMPH % (test code = 7.8 % 736-9) MONO % (test code = 7.3 % 5905-5) EOS % (test code = 1.2 % 713-8) BASO % (test code = 0.3 % 706-2) GRAN MAT x10^3(ANC) 5.74 10*3/uL 1.99-6.95 (test code = 0560347739) IMM GRAN x10^3 (test 0.06 10*3/uL 0-0.06 code = 5148095734) LYMPH x10^3 (test code 0.54 10*3/uL 1.09-3.23 L = 731-0) MONO x10^3 (test code 0.51 10*3/uL 0.36-1.02 = 742-7) EOS x10^3 (test code = 0.08 10*3/uL 0.06-0.53 711-2) BASO x10^3 (test code 0.01-0.09 = 704-7) Lab Interpretation Abnormal (test code = 82648-8) [facility]"
[2022-07-20 11:19] LABS: Absolute Lymphocytes (CBC) 0.4 K/uL (0.7-4.9); Hematocrit 33.3 % (39.6-49.0); Lymphocytes % 10.1 % (15.3-44.8); MCV 86.3 fL (80-100); MPV 7.1 fL (7.6-11.3); RBC Red Blood Cell Count 3.85 M/uL (4.33-5.43)
[2022-07-20 11:26] LABS: Protime INR 1.11
[2022-07-20 12:10] LABS: Albumin 2.8 g/dL (3.4-5.0); Bilirubin Total 0.5 mg/dL (0.2-1.0); Potassium 4.4 mEq/L (3.5-5.1); Protein, Total 7.1 g/dL (6.4-8.2)
[2022-07-20] MEDS ORDERED: MAGNESIUM SULFATE 1 gm IVPB 1 GM/100 ML BAG IV ONE (13:38)
[2022-07-20] MEDS ORDERED: POTASSIUM CL SA 10 MEQ TAB PO ONE (13:38)
[2022-07-20] MEDS ORDERED: ALBUMIN HUMAN 25% IV ONE (14:00)
[2022-07-20] MEDS ORDERED: ALBUMIN HUMAN 25% 50 ML IV ONE (14:00)
[2022-07-20] MEDS ORDERED: ALBUMIN HUMAN 25% 200 ML IV ONE (14:00)
--- NOTE | 2022-07-20 14:47 | ER ---
Nurse's Notes [facility] Name: Mc Willingham Age: 67 yrs Sex: Male : 1955 Arrival Date: 07/20/2022 Time: 10:54 Bed 14 Private MD: Diagnosis: Alcoholic cirrhosis of liver with ascites;Chronic kidney disease, stage 4 (severe) Presentation: 07/20 10:56 Chief complaint: Patient states: Hx of cirrhosis of liver, has paracentesis here aa5 approximately 1 month ago, pt reports increased abd swelling and SOB. Reports hasn't been established with GI doctor yet. 10:56 Coronavirus screen: At this time, the client does not indicate any symptoms associated aa5 with coronavirus-19. Ebola Screen: Patient denies travel to an Ebola-affected area in the 21 days before illness onset. Initial Sepsis Screen: Does the patient meet any 2 criteria? No. Patient's initial sepsis screen is negative. Does the patient have a suspected source of infection? No. Patient's initial sepsis screen is negative. Risk Assessment: Do you want to hurt yourself or someone else? Patient reports no desire to harm self or others. Onset of symptoms was 2022. 10:56 Acuity: POPPY 3 aa5 10:56 Method Of Arrival: Ambulatory aa5 Historical: - Allergies: 11:02 No Known Allergies; aa5 - PMHx: 11:02 cirrhosis of liver; diabetes mellitus; Hypertensive disorder; aa5 Screenin:05 [facility] ED Fall Risk Assessment (Adult) History of falling in the last 3 months, kc6 including since admission No falls in past 3 months (0 pts) Confusion or Disorientation No (0 pts) Intoxicated or Sedated No (0 pts) Impaired Gait No (0 pts) Mobility Assist Device Used No (0 pt) Altered Elimination No (0 pt) Score/Fall Risk Level 0 - 2 = Low Risk Oriented to surroundings, Maintained a safe environment, Educated pt \T\ family on fall prevention, incl call for assistance when getting out of bed, Assessed \T\ reinforced patient's understanding of fall precautions, Hourly rounding (assess needs \T\ fall precautionary measures) done. Abuse screen: Denies threats or abuse. Denies injuries from another. Nutritional screening: No deficits noted. Tuberculosis screening: No symptoms or risk factors identified. Assessment: 11:04 General: Appears in no apparent distress. comfortable, Behavior is calm, cooperative, kc6 appropriate for age. Pain: Complains of pain in abdomen. Neuro: Maya Agitation-Sedation Scale (RASS): 0 - Alert and Calm Level of Consciousness is awake, alert, obeys commands, Oriented to person, place, time, situation, Appropriate for age. Cardiovascular: Capillary refill < 3 seconds. Respiratory: Airway is patent Trachea midline Respiratory effort is even, unlabored, Respiratory pattern is regular, symmetrical. GI: Abdomen is round distended, noted to have ascites, Bowel sounds present X 4 quads. Abd is rigid X 4 quads. Patient currently denies diarrhea, nausea, vomiting. : No signs and/or symptoms were reported regarding the genitourinary system. EENT: No signs and/or symptoms were reported regarding the EENT system. Derm: No signs and/or symptoms reported regarding the dermatologic system. Skin is intact, Skin is pink, warm \T\ dry. Musculoskeletal: No signs and/or symptoms reported regarding the musculoskeletal system. Circulation, motion, and sensation intact. Capillary refill < 3 seconds, Range of motion: intact in all extremities. 12:00 Reassessment: Patient appears in no apparent distress at this time. No changes from kc6 previously documented assessment. Patient and/or family updated on plan of care and expected duration. Pain level reassessed. Patient is alert, oriented x 3, equal unlabored respirations, skin warm/dry/pink. 12:39 Reassessment: Dr. Alex and KINGA Del Valle at bedside for paracentesis. kc6 13:00 Reassessment: Patient appears in no apparent distress at this time. No changes from kc6 previously documented assessment. Patient and/or family updated on plan of care and expected duration. Pain level reassessed. Patient is alert, oriented x 3, equal unlabored respirations, skin warm/dry/pink. 14:00 Reassessment: Patient appears in no apparent distress at this time. No changes from kc6 previously documented assessment. Patient and/or family updated on plan of care and expected duration. Pain level reassessed. Patient is alert, oriented x 3, equal unlabored respirations, skin warm/dry/pink. 14:47 Reassessment: d/c pending albumin completion. kc6 15:00 Reassessment: Patient appears in no apparent distress at this time. No changes from kc6 previously documented assessment. Patient and/or family updated on plan of care and expected duration. Pain level reassessed. Patient is alert, oriented x 3, equal unlabored respirations, skin warm/dry/pink. 16:00 Reassessment: Patient appears in no apparent distress at this time. No changes from kc6 previously documented assessment. Patient and/or family updated on plan of care and expected duration. Pain level reassessed. Patient is alert, oriented x 3, equal unlabored respirations, skin warm/dry/pink. Vital Signs: 10:56 BP 153 / 95; Pulse 78; Resp 16 S; Temp 97.1(TE); Pulse Ox 99% on R/A; aa5 11:59 BP 147 / 90; Pulse 67; Resp 16 S; Pulse Ox 100% on R/A; kc6 13:08 BP 157 / 91; Pulse 67; Resp 12 S; Pulse Ox 100% on R/A; kc6 15:24 BP 148 / 77; Pulse 64; Resp 10 S; Pulse Ox 99% on R/A; kc6 16:15 BP 150 / 80; Pulse 72; Resp 19 S; Pulse Ox 100% on R/A; kc6 ED Course: 10:55 Patient arrived in ED. ts1 10:56 Arm band placed on. aa5 10:57 Francisco Javier Alex MD is Attending Physician. bs3 10:58 Henna Moseley, ALISSON is Primary Nurse. kc6 11:02 Triage completed. aa5 11:06 Patient has correct armband on for positive identification. Placed in gown. Bed in low kc6 position. Call light in reach. Side rails up X 1. Adult w/ patient. 11:15 Inserted saline lock: 20 gauge in right forearm, using aseptic technique. Blood kc6 collected. 17:09 No provider procedures requiring assistance completed. IV discontinued, intact, kc6 bleeding controlled, No redness/swelling at site. Pressure dressing applied. Administered Medications: 13:36 Drug: Potassium Chloride PO 40 mEq Route: PO; kc6 15:25 Follow up: Response: No adverse reaction kc6 13:36 Drug: Magnesium Sulfate IVPB 1 grams Route: IVPB; Infused Over: 1 hrs; Site: right kc6 forearm; 15:25 Follow up: Response: No adverse reaction; IV Status: Completed infusion; IV Intake: kc6 100ml 14:47 Drug: Albumin IVPB 60 grams Volume: 100 ml; Route: IVPB; Site: right forearm; kc6 17:09 Follow up: Response: No adverse reaction; IV Status: Completed infusion kc6 Medication: 17:10 VIS not applicable for this client. kc6 Intake: 15:25 IV: 100ml; Total: 100ml. kc6 Outcome: 14:46 Discharge ordered by . bs3 17:09 Discharged to home ambulatory, with friend. kc6 17:09 Condition: improved 17:09 Discharge instructions given to patient, Instructed on discharge instructions, follow up and referral plans. Demonstrated understanding of instructions, follow-up care. 17:10 Patient left the ED. kc6 Signatures: Priscila Blas RN RN aa5 Henna Moseley RN RN kc6 Francisco Javier Alex MD MD bs3 Danielle Sullivan PAS PAS ts1 Corrections: (The following items were deleted from the chart) 12:42 12:39 Reassessment: Dr. Alex at [facility] for paracentesis kc6 kc6
--- NOTE | 2022-07-20 14:47 | EDPHYS ---
Physician Documentation [facility] Name: Mc Willingham Age: 67 yrs Sex: Male : 1955 Arrival Date: 07/20/2022 Time: 10:54 Bed 14 Private MD: ED Physician Francisco Javier Alex HPI: 07/20 11:42 This 67 yrs old Male presents to ER via Ambulatory with complaints of bs3 Abdominal Pain. 11:42 Patient reports a history of cirrhosis secondary to alcoholism presenting with bs3 abdominal distention that has been progressive since his discharge, he has some vague abdominal pain as his abdomen is getting bigger, no fever or chills, no chest pain, sob, or anything else bothering him. He notes last time they drained 7 LIters and he is requesting drainage again. He does not have outpatient f/u yet as he is working on medicare/medicaid. . Historical: - Allergies: 11:02 No Known Allergies; aa5 - PMHx: 11:02 cirrhosis of liver; diabetes mellitus; Hypertensive disorder; aa5 ROS: 11:42 Constitutional: Negative for fever, chills bs3 11:42 All other systems are negative. Exam: 11:42 Constitutional: This is a well developed, well nourished patient who is awake, alert, bs3 and in no acute distress. Head/Face: Normocephalic, atraumatic. Eyes: Pupils equal round and reactive to light, extra-ocular motions intact. Lids and lashes normal. ENT: mmm, no posterior phyarngeal erythema Chest/axilla: Normal chest wall appearance and motion. Nontender with no deformity. No lesions are appreciated. Cardiovascular: Regular rate and rhythm with a normal S1 and S2. symmetric pulses in upper extremities Respiratory: Lungs have equal breath sounds bilaterally, clear to auscultation, no respiratory distress Abdomen/GI: Abdominal distention he also has a periumbilical hernia, no significant tenderness MS/ Extremity: Pulses equal, no cyanosis. Neurovascular intact. Full, normal range of motion. Neuro: Awake and alert, GCS 15, oriented to person, place, time, and situation. Cranial nerves II-XII grossly intact. Motor strength 5/5 in all extremities. Sensory grossly intact. Psych: Awake, alert, with orientation to person, place and time. Behavior, mood, and affect are within normal limits. Vital Signs: 10:56 BP 153 / 95; Pulse 78; Resp 16 S; Temp 97.1(TE); Pulse Ox 99% on R/A; aa5 11:59 BP 147 / 90; Pulse 67; Resp 16 S; Pulse Ox 100% on R/A; kc6 13:08 BP 157 / 91; Pulse 67; Resp 12 S; Pulse Ox 100% on R/A; kc6 15:24 BP 148 / 77; Pulse 64; Resp 10 S; Pulse Ox 99% on R/A; kc6 16:15 BP 150 / 80; Pulse 72; Resp 19 S; Pulse Ox 100% on R/A; kc6 Procedures: 13:24 Paracentesis: The risks and benefits of the procedure were discussed with the patient bs3 or guardian in detail, aseptic technique was employed throughout the procedure, the catheter was placed in the right lower quadrant, appoximately 9 liters of fluid was removed, the fluid was normal, the patient tolerated the procedure well, the patient did not experience any apparent complications. MDM: 10:57 Patient medically screened. bs3 11:42 Data reviewed: vital signs, nurses notes. ED course: 67-year-old with likely bs3 decompensated cirrhosis and ascites bedside ultrasound demonstrated a large pocket of fluid I do not think he has SBP I think his discomfort is likely secondary to his large abdomen will do bedside drainage. 13:24 ED course: Will give 6 to 8 g/L removed, 60g albumin replacement, will dc home, return bs3 prec given. 13:27 ED course: Patient found to be hypokalemic advised oral supplementation and outpatient bs3 follow-up with primary care. 14:00 ED course: pt tolerated procedure, labs notable for elevated creatine, similar to prior bs3 elevation, pt on spironolactone and lasix, likely hepatorenal, pt feeling well, discussed inpatient workup vs outpatient, pt feeling much better, will f/u with [facility] on Friday. . 14:45 ED course: Patient strongly advised to follow-up with nephrology and hepatology for bs3 hepatorenal syndrome. . 07/20 11:05 Order name: CBC with Diff; Complete Time: 11:42 bs3 07/20 11:05 Order name: Comprehensive Metabolic Panel; Complete Time: 13:45 bs3 07/20 13:45 Interpretation: GFR 23. bs3 07/20 11:05 Order name: Ptt, Activated; Complete Time: 11:42 bs3 07/20 11:05 Order name: PT-INR; Complete Time: 11:42 bs3 Administered Medications: 13:36 Drug: Potassium Chloride PO 40 mEq Route: PO; kc6 15:25 Follow up: Response: No adverse reaction kc6 13:36 Drug: Magnesium Sulfate IVPB 1 grams Route: IVPB; Infused Over: 1 hrs; Site: right kc6 forearm; 15:25 Follow up: Response: No adverse reaction; IV Status: Completed infusion; IV Intake: kc6 100ml 14:47 Drug: Albumin IVPB 60 grams Volume: 100 ml; Route: IVPB; Site: right forearm; kc6 17:09 Follow up: Response: No adverse reaction; IV Status: Completed infusion kc6 Disposition Summary: 07/20/22 14:46 Discharge Ordered Location: Home bs3 Problem: an acute exacerbation bs3 Symptoms: have improved bs3 Condition: Stable bs3 Diagnosis - Alcoholic cirrhosis of liver with ascites bs3 - Chronic kidney disease, stage 4 (severe) bs3 Followup: bs3 - With: Private Physician - When: 48 Hours - Reason: Re-evaluation by your physician Discharge Instructions: - Discharge Summary Sheet bs3 - Ascites bs3 - Cirrhosis bs3 - Paracentesis bs3 - Food Basics for Chronic Kidney Disease bs3 - Chronic Kidney Disease, Adult, [id number] bs3 Forms: - Medication Reconciliation Form bs3 - Thank You Letter bs3 - Antibiotic Education bs3 - Prescription Opioid Use bs3 Signatures: Dispatcher [employer] Priscila Segura RN RN aa5 Henna Moseley RN RN kc6 Francisco Javier Alex MD MD bs3
[2022-07-20 17:38] VITALS: TEMP 97.1
[2022-07-20 17:45] VITALS: BP 150/80; O2SAT 100
== END 2022-07-20 17:10 | disposition home or self-care (01) ==
LOC: ER 10:54
PROC: 0W9G30Z Drainage of Peritoneal Cavity with Drainage Device, Percutaneous Approach (ICD-10-PCS; principal; 2022-07-20)
DX: K70.31 Alcoholic cirrhosis of liver with ascites (principal); E11.22 Type 2 diabetes mellitus with diabetic chronic kidney disease; I12.9 Hypertensive chronic kidney disease with stage 1 through stage 4 chronic kidney disease, or unspecified chronic kidney disease; N18.4 Chronic kidney disease, stage 4 (severe)
CPT/HCPCS: 36415; 80053; 85025; 85610; 85730; 96365; 96366; 99284; J3475; P9047

== ENCOUNTER 2022-08-23 13:03 | Emergency (ER) | payer SELFPAY ==
--- OUTSIDE RECORDS SUMMARY | 2022-08-23 13:10 | XMS REPORT | Continuity of Care Document ---
:1955 Author Organization [facility] t Address [address] [place] [address] [address] [place] [address] Care Team Providers Name Role Phone SAIRA NAVARRETE Kobi Primary Care Physician Unavailable LEILA CHAPMAN Attending Clinician Unavailable MIKE COPPOLA Attending Clinician Unavailable Mike Pulido Attending Clinician Leila Chapman MD Attending Clinician Doctor Unassigned, [place] Attending Clinician Unavailable JOSÉ MIGUEL HUMPHRIES Attending [...] Attending Clinician Unavailable Annabelle Shore Attending Clinician MIKE COPPOLA Admitting Clinician Unavailable GEETA YOUNG Admitting Clinician Unavailable Geeta Young DO Admitting Clinician JAQUI ROMANO Admitting Clinician Unavailable AUGUSTIN JEAN Admitting Clinician Unavailable Augustin Jean MD Admitting Clinician ALISHA CHA Admitting Clinician Unavailable Alisha Cha DO Admitting Clinician Payers Payer Name Policy Type Policy Number Effective Date Expiration Date S [facility] [place] SSI PENDING 2022 PENDING 00:00:00 Problems Condition Condition Condition Status Onset Resolution Last Treating Co mments Source Name Details Category Date Date Treatment Clinician Date Chronic Chronic Disease Active Univers hepatitis hepatitis 3-30 it[place] of C without C without [place] hepatic hepatic 00 [facility] Branch 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 00:00: [place] disease disease 00 Medical Branch Ascites Ascites Disease Active 2021-03 Univers 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 ity of alcoholic alcoholic 00:00[place] cirrhosis cirrhosis Medi [place]sario Branch Alcoholic Alcoholic Disease Active 2021-03 Uni vers cirrhosis cirrhosis 0-18 ity of of liver of liver 00:00: [place] with with 00 Medical ascites ascites Branch 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 liver 9-30 ity of 00:00: [place] 00 Medical Branch Tense Tense Disease Active Univers ascites ascites 9-30 ity of 00:00: [place] 00 Medical Branch No known No known Disease Unive rs active active ity of problems problems [place] [facility] Allergies, Adverse Reactions, Alerts Allergy Allergy Status Severity Reaction(s) Onset Inactive Treating Comm ents Source Name Type Date Date Clinician NO KNOWN Drug Active Univers ALLERGIE Class ity of S [place] [facility] Social History Social Habit Start Date Stop Date Quantity Comments Source History SDOH Social Unive rsity of Connections [facility] Med ical Together Branch History SDOH Social Unive rsity of Connections [facility] Medical Branch History SDOH Social Unive rsity of Connections [place] [facility] Membership Branch History SDOH Social Unive rsity of Connections [place] [facility] Meetings Branch History of tobacco Cigarette Smoker University of use [facility] Branch Exposure to 2022-05-26 2022-06-05 Not sure University of SARS-CoV-2 (event) 00:00:00 06:46:00 [facility] Branch Alcohol intake 2022-06-05 2022-06-05 Current drinker Unive rsity of 00:00:00 00:00:00 of alcohol [place] [facility] (finding) Branch History SDOH 2022-04-11 2022-04-11 1 University o f Alcohol Frequency 00:00:00 00:00:00 [place] M edical Branch History SDOH 2022-04-11 2022-04-11 0 University o f Alcohol Std Drinks 00:00:00 00:00:00 [place] [facility] History SDOH 2022-04-11 2022-04-11 1 University o f Alcohol Binge 00:00:00 00:00:00 [place] Medic al Branch History SDOH Social 2022-04-11 2022-04-11 5 Unive rsity of Connections Phone 00:00:00 00:00:00 [place] M edical Branch History SDOH Social 2022-04-11 2022-04-11 6 Unive rsity of Connections Living 00:00:00 00:00:00 [place] [facility] History SDOH 2022-04-11 2022-04-11 0 University o f Physical Activity 00:00:00 00:00:[address] [facility] edical DPW Branch History SDAR 2022-04-11 2022-04-11 0 University o f Physical Activity 00:00:00 00:00:[address] [facility] edical MPS Branch History SDOH 2022-04-11 2022-04-11 5 University o f Financial 00:00:00 00:00:00 [place] [facility] History SDAR Food 2022-04-11 2022-04-11 1 Univers ity of Worry 00:00:00 00:00:00 [place] [facility] History SDOH Food 2022-04-11 2022-04-11 1 Univers ity of Scarcity 00:00:00 00:00:00 [place] [facility] History [facility] 2022-04-11 2022-04-11 2 University o f Transport Med 00:00:00 00:00:00 [place] Medic al Branch History [facility] 2022-04-11 2022-04-11 2 University o f Transport Non-Med 00:00:00 00:00:00 [facility] Tobacco use and 2021-12-07 2021-12-07 Smokeless Universit y of exposure 00:00:00 00:00:00 tobacco non-user [facility] dical Branch Education 2021-12-07 2021-12-07 14 University 00:00:00 00:00:00 [facility] Tobacco Comment 2021-12-07 2021-12-07 Quit 3-4 years Unive rsity of 00:00:00 00:00:00 [facility] Sex Ass[birth year] At [birth year] Universit y of 00:00:00 00:00:00 [facility] Smoking Status Start Date Stop Date Source Tobacco smoking University [facility] xa consumption unknown Medical Bran ch Ex-smoker 2021-12-07 00:00:00 2021-12-07 University o f [place] 00:00:00 Medical Branch Medications Ordered Filled Start Stop Current Ordering Indication Dosage Frequency Signature Comments Components Source Medication Medication Date Date Medication? Clinician (SIG) Name Name pantoprazol Yes 40mg Take 1 Univ ers e 40 mg EC 3-30 tablet by ity of tablet 14:07: mouth in [place] 56 the Medical morning Branch and 1 tablet in the evening. pantoprazol 2023-0 Yes 40mg Take 1 Univ ers e 40 mg EC 3-30 tablet by ity of tablet 14:07: mouth in [place] [address] the Medical morning Branch and 1 tablet in the evening. pantoprazol 2023-0 Yes 40mg Take 1 Univ ers e 40 mg EC 3-30 tablet by ity of tablet 14:07: mouth in [place] 56 the Medical morning Branch and 1 tablet in the evening. pantoprazol 2023-0 Yes 40mg Take 1 Univ ers e 40 mg EC 3-30 tablet by ity of tablet 14:07: mouth in [place] [address] the Medical morning Branch and 1 tablet in the evening. furosemide 2023-0 Yes 40mg Take 1 Unive rs 40 mg 3-30 tablet by ity of tablet 00:00: mouth [place] 00 every Medical morning Branch and evening. lactulose 2023-0 Yes [id number] 30mL Take 30 mL Univers 10 gram/15 3-30 by mouth ity o f mL solution 00:00: in the [facility] morning. Medical Branch sulfamethox 2023-0 Yes [id number] 1{tbl} Take 1 Univers azole-trime 3-30 tablet by ity of thoprim 00:00: mouth in [place] [facility] the Medical 400-80 mg morning. Branch per tablet spironolact 2023-0 Yes 200mg Take 8 Uni vers one 25 mg 3-30 tablets by ity of tablet 00:00: mouth in [place] 00 the Medical morning. Branch furosemide 2023-0 Yes 40mg Take 1 Unive rs 40 mg 3-30 tablet by ity of tablet 00:00: mouth [place] 00 every Medical morning Branch and evening. lactulose 2023-0 Yes [id number] 30mL Take 30 mL Univers 10 gram/15 3-30 by mouth ity o f mL solution 00:00: in the [facility] s 00 morning. Medical Branch sulfamethox 2023-0 Yes [id number] 1{tbl} Take 1 Univers azole-trime 3-30 tablet by ity of thoprim 00:00: mouth in [place] ([facility]) 00 the Medical 400-80 mg morning. Branch per tablet spironolact 2023-0 Yes 200mg Take 8 Uni vers one 25 mg 3-30 tablets by ity of tablet 00:00: mouth in [place] 00 the Medical morning. Branch furosemide 2023-0 Yes 40mg Take 1 Unive rs 40 mg 3-30 tablet by ity of tablet 00:00: mouth [place] 00 every Medical morning Branch and evening. lactulose 2022-0 Yes [id number] 30mL Take 30 mL Univers 10 gram/15 3-30 by mouth ity o f mL solution 00:00: in the [facility] morning. Medical Branch sulfamethox 2022-0 Yes [id number] 1{tbl} Take 1 Univers azole-trime 3-30 tablet by ity of thoprim 00:00: mouth in [place] ([facility]) 00 the Medical 400-80 mg morning. Branch per tablet spironolact 2022-0 Yes 200mg Take 8 Uni vers one 25 mg 3-30 tablets by ity of tablet 00:00: mouth in [place] 00 the Medical morning. Branch furosemide 2022-0 Yes 40mg Take 1 Unive rs 40 mg 3-30 tablet by ity of tablet 00:00: mouth [place] every Medical morning Branch and evening. lactulose 2022-0 Yes [id number] 30mL Take 30 mL Univers 10 gram/15 3-30 by mouth ity o f mL solution 00:00: in the [facility] morning. Medical Branch sulfamethox 2022-0 Yes [id number] 1{tbl} Take 1 Univers azole-trime 3-30 tablet by ity of thoprim 00:00: mouth in [place] [facility] the Medical 400-80 mg morning. Branch per tablet spironolact 2022-0 Yes 200mg Take 8 Uni vers one 25 mg 3-30 tablets by ity of tablet 00:00: mouth in [place] 00 the Medical morning. Branch traMADoL 50 2022-0 Yes [id number] 50mg Take 1 Univ ers mg tablet 3-29 tablet by ity o f 00:00: mouth [place] 00 every 8 Medical (eight) Branch hours as needed for Pain (scale 1-3). Indication s: acute pain traMADoL 50 3-0 Yes [id number] 50mg Take 1 Univ ers mg tablet 3-29 tablet by ity o f 00:00: mouth [place] 00 every 8 Medical (eight) Branch hours as needed for Pain (scale 1-3). Indication s: acute pain traMADoL 50 3-0 Yes [id number] 50mg Take 1 Univ ers mg tablet 3-29 tablet by ity o f 00:00: mouth [place] 00 every 8 Medical (eight) Branch hours as needed for Pain (scale 1-3). Indication s: acute pain traMADoL 50 2022-0 Yes [id number] 50mg Take 1 Univ ers mg tablet 3-29 tablet by ity o f 00:00: mouth [place] 00 every 8 Medical (eight) Branch hours as needed for Pain (scale 1-3). Indication s: acute pain traMADoL 50 2022-0 Yes [id number] 50mg Take 1 Univ ers mg tablet 3-29 tablet by ity o f 00:00: mouth [place] 00 every 8 Medical (eight) Branch hours as needed for Pain (scale 1-3). Indication s: acute pain traMADoL 50 2022-0 Yes [id number] 50mg Take 1 Univ ers [...] Dosin-8 g/L of ascitic fluid removed lactulose 2022-0 Yes [id number] 30mL Take 30 mL Univers 10 gram/15 3-24 by mouth ity o f mL oral 00:00: in the [place] solution 00 morning. Medical Branch lactulose 2022-0 Yes [id number] 30mL Take 30 mL Univers 10 gram/15 3-24 by mouth ity o f mL oral 00:00: in the [place] solution 00 morning. Medical Branch lactulose 2022-0 Yes [id number] 30mL Take 30 mL Univers 10 gram/15 3-24 by mouth ity o f mL oral 00:00: in the [place] solution 00 morning. Medical Branch lactulose 2022-0 2023- No [id number] 30mL Take 30 mL Univers 10 gram/15 3-24 03-30 by mouth ity of mL oral 00:00: 00:00 in the [place] solution 00 :00 morning. Medical Branch lactulose 2022-0 2022- No [id number] 30mL Take 30 mL Univers 10 gram/15 05-3130 by mouth ity of mL oral 00:00: 00:00 in the [place] solution 00 :00 morning. Medical Branch lactulose 2022-0 2022- No [id number] 30mL Take 30 mL Univers 10 gram/15 05-3130 by mouth ity of mL oral 00:00: 00:00 in the [place] solution 00 :00 morning. Medical Branch pantoprazol 2022-0 Yes 40mg Take 40 mg Univers e 40 mg EC 2-02 by mouth ity o f tablet 17:45: in the [place] [address] morning Medical and 40 mg Branch in the evening. pantoprazol 2023-0 Yes 40mg Take 40 mg Univers e 40 mg EC 2-02 by mouth ity o f tablet 17:45: in the [place] [address] morning Medical and 40 mg Branch in the evening. pantoprazol 3-0 Yes 40mg Take 40 mg Univers e 40 mg EC 2-02 by mouth ity o f tablet 17:45: in the [place] [address] morning Medical and 40 mg Branch in the evening. pantoprazol 3-0 Yes 40mg Take 40 mg Univers e 40 mg EC 2-02 by mouth ity o f tablet 17:45: in the [place] [address] morning Medical and 40 mg Branch in the evening. cefTRIAXone 2022- No 2000mg 2,000 mg, Univers (ROCEPHIN) 04-11 02-09 Intravenou it y of 2,000 mg in 16:00: 15:59 [place], Q24H [place] water for 00 :00 ABX, 7 Medical injection, doses, Branch sterile 20 First dose mL SIVP (after syringe last reorder) on [place] 04/11/22 at 1000, Last dose on Fri04/17/22 at 1000, 20 mL
Reas on for Anti-Infec tive: Documented Infection< br>Documen ros Infection Site: Abdominal< br>Duratio n of Therapy: 7 days albumin 2022- No 12.5g 12.5 g, IV Un piedad (ALBUMINAR 04-11 Infusion, ity of 25%) 25 % 15:30: 19:38 ONCE, 1 [place] injection 00 :00 dose, On Medica l 12.5 g [place] 04/11/22 Branch at 0930, 100 mL
Marge cation: HEPATORENA L SYNDROME (DIAGNOSIS )
Comme nts: Dosin-8 g/L of ascitic fluid removed furosemide 2022- No 40mg Take 40 mg Univers 40 mg 04-11 by mouth ity of tablet 15:02: 00:00 every [place] 42 :00 morning Medical and Branch evening. spironolact 2022- No 25mg Take 25 mg Univers one 04-11 by mouth ity of (ALDACTONE) 15:02: 00:00 in the [facility] as 25 mg 42 :00 morning. Medical tablet Branch spironolact Yes 25mg 25 mg, Univ ers one 04-11 Oral, ity of (ALDACTONE) 15:00: DAILY, [place] tablet 25 00 First dose Medi rosario mg on Fri Branch 04/11/22 at 0900, Until Discontinu ed, Routine heparin Yes 5000U 5,000 Univers (porcine) 04-11 Units, ity of injection 14:00: [place]cut[place]o [place] 5,000 Units 00 us, Q12H, Med ical First dose Branch on Fri04/11/22 at 0800, Until Discontinu ed, Routine pantoprazol Yes 40mg 40 mg, Univ ers e 04-11 Oral, BID, ity of (PROTONIX) 14:00: First dose [place] EC tablet 00 fri Medical 40 mg 04/11/22 at Branch 0800, Until Discontinu ed, Routine acetaminoph Yes 650mg 650 mg, Un piedad en 04-11 Oral, ity of (TYLENOL) 02:53: Q6HPRN, [place] tablet 650 20 Starting Medic al mg on Fri04/10/22 at 2052, Until Discontinu ed, Routine, Pain (scale 1-3) sulfamethox 2022- No [id number] 1{tbl} Take 1 Univers azole-trime 04-11 [id number] tablet by i ty of thoprim 00:00: 05:59 mouth in [place] ([facility] 00 :00 the Medical DS) 800-160 morning Branc h mg per for 30 tablet days. furosemide 2022-0 2022- No [id number] 40mg Take 1 Univers 40 mg 04-11 tablet by ity of tablet 00:00: 05:59 mouth [place] 00 :00 every Medical morning Branch and evening for 30 days. spironolact 2022-0 2022- No [id number] 200mg Take 2 Univers one 04-11 08064 tablets by ity of (ALDACTONE) 00:00: 05:59 mouth in [place] 100 mg 00 :00 the Medical tablet morning Branch for 30 days. furosemide 2022-0 2023- No 40mg Take 1 Univ ers 40 mg 03-20 tablet by ity of tablet 00:00: 00:00 mouth. [place] 00 :00 Medical Branch spironolact 2022-0 2023- No 25mg Take 1 Uni vers one 25 mg 03-20 tablet by ity of tablet 00:00: 00:00 mouth. [place] 00 :00 Medical Branch furosemide 2022-0 2022- No 40mg Take 1 Univ ers 40 mg 03-20 tablet by ity of tablet 00:00: 00:00 mouth. [place] 00 :00 Medical Branch spironolact 3-0 2023- No 25mg Take 1 Uni vers one 25 mg 03-20 tablet by ity of tablet 00:00: 00:00 mouth. [place] 00 :00 Medical Branch furosemide 2022-0 2023- No 40mg Take 1 Univ ers 40 mg 03-20 tablet by ity of tablet 00:00: 00:00 mouth. [place] 00 :00 Medical Branch spironolact 3-0 2023- No 25mg Take 1 Uni vers one 25 mg 03-2030 tablet by ity of tablet 00:00: 00:00 mouth. [place] 00 :00 Medical Branch furosemide 2021- Yes 40mg Take 40 mg U nivers 40 mg 0-21 by mouth ity of tablet 13:09: every [place] [address] morning Medical and Branch evening. furosemide 2021- Yes 40mg Take 40 mg U nivers 40 mg 0-21 by mouth ity of tablet 13:09: every [place] [address] morning Medical and Branch evening. furosemide 2021- Yes 40mg Take 40 mg U nivers 40 mg 0-21 by mouth ity of tablet 13:09: every [place] [address] morning Medical and Branch evening. furosemide 2021- Yes 40mg Take 40 mg U nivers 40 mg 0-21 by mouth ity of tablet 13:09: every [place] [address] morning Medical and Branch evening. furosemide 2021- Yes 40mg Take 40 mg U nivers 40 mg 0-21 by mouth ity of tablet 13:09: every [place] [address] morning Medical and Branch evening. furosemide 2021- Yes 40mg Take 40 mg U nivers 40 mg 0-21 by mouth ity of tablet 13:09: every [place] [address] morning Medical and Branch evening. furosemide 2021- Yes 40mg Take 40 mg U nivers 40 mg 0-21 by mouth ity of tablet 13:09: every [place] [address] morning Medical and Branch evening. furosemide 2021- Yes 40mg Take 40 mg U nivers 40 mg 0-21 by mouth ity of tablet 13:09: every [place] [address] morning Medical and Branch evening. furosemide 2021- Yes 40mg Take 40 mg U nivers 40 mg 0-21 by mouth ity of tablet 13:09: every [place] [address] morning Medical and Branch evening. furosemide 2021- Yes 40mg Take 40 mg U nivers 40 mg 0-21 by mouth ity of tablet 13:09: every [place] [address] morning Medical and Branch evening. furosemide 2021- Yes 40mg Take 40 mg U nivers 40 mg 0-21 by mouth ity of tablet 13:09: every [place] [address] morning Medical and Branch evening. pantoprazol 2021- Yes 40mg Take 40 mg Univers e 40 mg EC 0-21 by mouth ity o f tablet 13:09: in the [place] [address] morning Medical and 40 mg Branch in the evening. pantoprazol 2021-1 Yes 40mg Take 40 mg Univers e 40 mg EC 0-21 by mouth ity o f tablet 13:09: in the [place] [address] morning Medical and 40 mg Branch in the evening. pantoprazol 2022-1 Yes 40mg Take 40 mg Univers e 40 mg EC 0-21 by mouth ity o f tablet 13:09: in the [place] [address] morning Medical and 40 mg Branch in the evening. pantoprazol 2-1 Yes 40mg Take 40 mg Univers e 40 mg EC 0-21 by mouth ity o f tablet 13:09: in the [place] [address] morning Medical and 40 mg Branch in the evening. pantoprazol 2021-03 Yes 40mg Take 40 mg Univers e 40 mg EC 0-21 by mouth ity o f tablet 13:09: in the [place] [address] morning Medical and 40 mg Branch in the evening. pantoprazol 2021-03 Yes 40mg Take 40 mg Univers e 40 mg EC 0-21 by mouth ity o f tablet 13:09: in the [place] [address] morning Medical and 40 mg Branch in the evening. pantoprazol 2021-03 Yes 40mg Take 40 mg Univers e 40 mg EC 0-21 by mouth ity o f tablet 13:09: in the [place] [address] morning Medical and 40 mg Branch in the evening. pantoprazol 2021-03 Yes 40mg Take 40 mg Univers e 40 mg EC 0-21 by mouth ity o f tablet 13:09: in the [place] [address] morning Medical and 40 mg Branch in the evening. pantoprazol 2021-03 Yes 40mg Take 40 mg Univers e 40 mg EC 0-21 by mouth ity o f tablet 13:09: in the [place] [address] morning Medical and 40 mg Branch in the evening. pantoprazol 2021-03 Yes 40mg Take 40 mg Univers e 40 mg EC 0-21 by mouth ity o f tablet 13:09: in the [place] [address] morning Medical and 40 mg Branch in the evening. pantoprazol 2021-03 Yes 40mg Take 40 mg Univers e 40 mg EC 0-21 by mouth ity o f tablet 13:09: in the [place] [address] morning Medical and 40 mg Branch in the evening. albumin 2021-03 202- No [id number] 50g 50 g, IV Univers (ALBUMINAR 0-21 10-21 Infusion, ity of 25%) 25 % 02:15: 02:32 ONCE, 1 [place] injection 00 :24 dose, On Medica l 50 g [facility] Branch 12/27/21 at 2115, 200 mL
Marge cation: HEPATORENA L SYNDROME (DIAGNOSIS )
Comme nts: Dosin-8 g/L of ascitic fluid removed spironolact 2021-03 Yes 100mg 100 mg, Un piedad one 0-19 Oral, ity of (ALDACTONE) 14:00: DAILY, [place] tablet 100 00 First dose Med ical mg on 12/26/21 at 0900, Until Discontinu ed, Routine docusate 2021-03 Yes 100mg 100 mg, Unive rs (COLACE) 0-19 Oral, BID, ity o f capsule 100 01:00: First dose [place] mg 00 on [facility] 12/25/21 Branch at 2000, Until Discontinu [...] First dose Medical (HumaLOG) + on Fri [facility] 12/25/21 Testing at 1700, Until Discontinu ed, Routine enoxaparin 2021-03 Yes 30mg 30 mg, Unive rs (LOVENOX) 0-18 Subcutaneo ity of injection 22:00: [place], [place]ILY, [place] 30 mg 00 First dose Medical on [facility] 12/25/21 at 1700, Until Discontinu ed, Routine glucagon 2021-03 Yes 1mg 1 mg, Univers (GLUCAGEN 0-18 Intramuscu ity of DIAGNOSTIC 21:33: lar, PRN, [place] KIT) 19 Starting Medical injection 1 on [facility] mg 12/25/21 at 1633, Until Discontinu ed, NAYAN, Blood Glucose < or = 70 mg/dL and patient is unable to swallow or has mental changes. dextrose 50 2021-03 Yes 25mL 25 mL, Univ ers % in water 0-18 Slow IV ity of (D50W) 21:33: Push, PRN, [place] injection 19 Starting Medica l 25 mL on [facility] 12/25/21 at 1633, Until Discontinu ed, NAYAN, Blood Glucose < or = 70 mg/dL and patient is unable to swallow or has mental status changes. ondansetron 2021-03 Yes 4mg 4 mg, Slow Univers (ZOFRAN 0-18 IV Push, ity of (PF)) 21:33: Q6HPRN, [place] injection 4 11 Starting Medi rosario mg on [facility] Branch 12/25/21 at 1633, Until Discontinu ed, Routine, Nausea and Vomiting (N/V) acetaminoph 2021-03 Yes 650mg 650 mg, Un piedad en 0-18 Oral, ity of (TYLENOL) 21:32: Q6HPRN, [place] tablet 650 53 Starting Medic al mg on [facility] Branch 12/25/21 at 1632, Until Discontinu ed, Routine, Pain (scale 1-3) pantoprazol 2021-03 Yes 40mg Take 40 mg Univers e 40 mg EC 0-02 by mouth ity o f tablet 16:36: in the [place] 06 morning Medical and 40 mg Branch in the evening. furosemide 2021-03 Yes 40mg Take 40 mg U nivers 40 mg 0-02 by mouth ity of tablet 16:36: every [place] [address] morning Medical and Branch evening. pantoprazol 2021-03 Yes 40mg Take 40 mg Univers e 40 mg EC 0-02 by mouth ity o f tablet 16:36: in the [place] [address] morning Medical and 40 mg Branch in the evening. furosemide 2021-03 Yes 40mg Take 40 mg U nivers 40 mg 0-02 by mouth ity of tablet 16:36: every [place] [address] morning Medical and Branch evening. spironolact 2021-03- No 25mg Take 25 mg Univers one 25 mg 0-02 1002 by mouth ity o f tablet 13:32: 00:00 in the [place] 31 :00 morning Medical and 25 mg Branch in the evening. spironolact 2021-03- No [id number] 25mg Take 1 Univers one 25 mg 0-02 11-02 tablet by ity of tablet 00:00: 04:59 mouth in [place] 00 :00 the Medical morning Branch for 30 days. spironolact 2021-03- No [id number] 25mg Take 1 Univers one 25 mg 0-02 11-02 tablet by ity of tablet 00:00: 04:59 mouth in [place] 00 :00 the Medical morning Branch for 30 days. spironolact 2021-03- No [id number] 25mg Take 1 Univers one 25 mg 0-02 11-02 tablet by ity of tablet 00:00: 04:59 mouth in [place] 00 :00 the Medical morning Branch for 30 days. spironolact 2021-03- No [id number] 25mg Take 1 Univers one 25 mg 001-09 tablet by ity of tablet 00:00: 04:59 mouth in [place] 00 :00 the [facility] for 30 days. midodrine 2021-03 Yes 5mg 5 mg, Univers (PROAMATINE 0-01 Oral, TID, it y of ) tablet 5 19:00: First dose [place] mg 00 on [facility] 12/08/21 at Branch 1400, Until Discontinu ed, Routine foLIC acid 2021-03- No 1mg 1 mg, Unive rs (FOLATE) 0-12-08 Oral, ity of tablet 1 mg 16:15: 17:09 ONCE, 1 [place] 00 :00 dose, On [facility] 12/08/21 at 1115, Routine thiamine 2021-03 Yes 100mg 100 mg, Unive rs (VITAMIN 0-01 Oral, ity of B1) tablet 15:30: DAILY, [place] 100 mg 00 First dose Medical on [facility] 12/08/21 at 1030, Until Discontinu ed, Routine furosemide 2021-03 Yes 40mg 40 mg, Unive rs (LASIX) 0-01 Oral, ity of tablet 40 14:00: DAILY, [place] mg 00 First dose Medical on [facility] 12/08/21 at 0900, Until Discontinu ed, Routine spironolact 2021-03- No 100mg 100 mg, U nivers one 0-12-08 Oral, ity of (ALDACTONE) 14:00: 15:45 DAILY, [place] tablet 100 00 :15 First dose Med ical mg on [facility] 12/08/21 at 0900, Until Discontinu ed, Routine traMADoL 2021-03 Yes 50mg 50 mg, Univers (ULTRAM) 0-01 Oral, ity of tablet 50 10:49: Q6HPRN, [place] mg 22 Starting Medical on [facility] 12/08/21 at 0549, Until Discontinu ed, Routine, Pain (scale 4-6) heparin 2021-03 Yes 5000U 5,000 Univers (porcine) 0-01 Units, ity of injection 03:00: [place]cut[place]o [place] 5,000 Units 00 us, Q8H, [facility] First dose Branch on 12/07/21 at 2200, Until Discontinu ed, Routine Sliding 2021-03 Yes Subcutaneo Univ ers Scale 0-01 us, TID ity of Insulin - 02:00: MEALS+HS, [place] as Lispro 00 First dose Medical (HumaLOG) + on Fri Branch [facility] 12/07/21 at Testing 2100, Until Discontinu ed, Routine albumin 2021- No [id number] 25g 25 g, IV Univers (ALBUMINAR 12-07 Infusion, ity of 25%) 25 % 20:15: 02:01 ONCE, 1 [place] injection 00 :00 dose, On Medica l 25 g Fri Branch 12/07/21 at 1515, 100 mL
Marge cation: HEPATORENA L SYNDROME (DIAGNOSIS )
Comme nts: Dosin-8 g/L of ascitic fluid removed furosemide 2021- No [id number] 40mg 40 mg, Univers (LASIX) 12-07 Slow [...] 9-16 medication it y of 13:38: s [address] No known No No known Unive rs medications 8-11 medication it y of 11:47: s [address] No known No No known Unive rs medications 8-11 medication it y of 11:47: [address] No known No No known Unive rs medications 8-11 medication it y of 11:47: [address] Vital Signs Vital Name Observation Time Observation Value Comments Source Systolic blood 2022-08-12 16:30:00 124 mm[Hg] [facility] Diastolic blood 2022-08-12 16:30:00 67 mm[Hg] [facility] Heart rate 2022-08-12 16:30:00 66 /min [facility] Respiratory rate 2022-08-12 16:30:00 17 /min [facility] Oxygen saturation in 2022-08-12 16:30:00 99 /min [facility] by [place] [facility] Body temperature 2022-08-12 15:05:00 37 Shabnam [facility] [place] [facility] Body weight 2022-08-12 15:05:00 80.287 kg [facility] BMI 2022-08-12 15:05:00 26.91 kg/m2 [facility] Systolic blood 2022-06-06 19:06:00 120 mm[Hg] [facility] Diastolic blood 2022-06-06 19:06:00 79 mm[Hg] [facility] Heart rate 2022-06-06 19:06:00 78 /min [facility] Body temperature 2022-06-06 19:06:00 36.17 Shabnam [facility] Body height 2022-06-06 19:06:00 172.7 cm [facility] Body weight 2022-06-06 19:06:00 80.513 kg [facility] BMI 2022-06-06 19:06:00 26.99 kg/m2 [facility] Oxygen saturation in 2022-06-06 19:06:00 99 /min [facility] [place] [facility] Systolic blood 2022-06-05 14:00:00 125 mm[Hg] [facility] Diastolic blood 2022-06-05 14:00:00 74 mm[Hg] [facility] Heart rate 2022-06-05 14:00:00 80 /min [facility] Respiratory rate 2022-06-05 14:00:00 18 /min [facility] Oxygen saturation in 2022-06-05 14:00:00 99 /min [facility] [place] [facility] Body temperature 2022-06-05 11:46:00 35.72 Shabnam [facility] Body weight 2022-06-05 11:46:00 85.276 kg [facility] BMI 2022-06-05 11:46:00 28.59 kg/m2 [facility] Systolic blood 2022-06-01 00:00:00 140 mm[Hg] [facility] Diastolic blood 2022-06-01 00:00:00 99 mm[Hg] [facility] Heart rate 2022-06-01 00:00:00 74 /min [facility] Respiratory rate 2022-06-01 00:00:00 18 /min [facility] Oxygen saturation in 2022-06-01 00:00:00 100 /min [facility] blood by [facility] Body temperature 2022-05-31 18:57:45 36.33 Shabnam [facility] Body weight 2022-05-31 18:43:00 85.276 kg [facility] BMI 2022-05-31 18:43:00 28.59 kg/m2 [facility] Systolic blood 2022-04-11 22:07:00 156 mm[Hg] [facility] Diastolic blood 2022-04-11 22:07:00 94 mm[Hg] [facility] Heart rate 2022-04-11 22:07:00 78 /min [facility] Body temperature 2022-04-11 22:07:00 36.39 Shabnam [facility] Respiratory rate 2022-04-11 22:07:00 19 /min [facility] Oxygen saturation in 2022-04-11 22:07:00 100 /min [facility] blood by [facility] Body height 2022-04-11 02:52:00 172.7 cm [facility] Body weight 2022-04-11 02:52:00 88.451 kg [facility] BMI 2022-04-11 02:52:00 29.65 kg/m2 [facility] Systolic blood 2022-03-27 21:30:00 140 mm[Hg] [facility] Diastolic blood 2022-03-27 21:30:00 83 mm[Hg] [facility] Heart rate 2022-03-27 21:30:00 68 /min [facility] Respiratory rate 2022-03-27 21:30:00 13 /min [facility] Oxygen saturation in 2022-03-27 21:30:00 100 /min [facility] [place] [facility] Body temperature 2022-03-27 18:33:00 36.89 Shabnam [facility] [place] [facility] Body height 2022-03-27 18:33:00 172.7 cm [facility] Body weight 2022-03-27 18:33:00 88.451 kg [facility] [place] [facility] BMI 2022-03-27 18:33:00 29.65 kg/m2 [facility] Body weight 2022-03-12 17:50:00 87.544 kg [facility] BMI 2022-03-12 17:50:00 29.35 kg/m2 [facility] Systolic blood 2022-03-12 17:39:00 130 mm[Hg] [facility] Diastolic blood 2022-03-12 17:39:00 83 mm[Hg] [facility] Heart rate 2022-03-12 17:39:00 71 /min [facility] Body temperature 2022-03-12 17:39:00 36.61 Shabnam [facility] [place] [facility] Respiratory rate 2022-03-12 17:39:00 22 /min [facility] Body height 2022-03-12 17:39:00 172.7 cm [facility] [place] [facility] Oxygen saturation in 2022-03-12 17:39:00 100 /min [facility] [place] [facility] Systolic blood 2022-02-27 22:01:00 153 mm[Hg] [facility] Diastolic blood 2022-02-27 22:01:00 85 mm[Hg] [facility]ive rs[facility] Heart rate 2022-02-27 22:01:00 81 /min [facility] Respiratory rate 2022-02-27 22:01:00 16 /min [facility] Oxygen saturation in 2022-02-27 21:26:00 95 /min [facility] [place] [facility] Body temperature 2022-02-27 21:04:00 36.89 Shabnam [facility] Body weight 2022-02-27 21:04:00 88.451 kg [facility] BMI 2022-02-27 21:04:00 29.65 kg/m2 [facility] Body weight 2022-02-13 22:39:00 79.606 kg [facility] BMI 2022-02-13 22:39:00 26.68 kg/m2 [facility] Systolic blood 2022-02-13 22:35:00 130 mm[Hg] [facility] Diastolic blood 2022-02-13 22:35:00 87 mm[Hg] [facility] Heart rate 2022-02-13 22:35:00 65 /min [facility] Respiratory rate 2022-02-13 22:35:00 18 /min [facility] Oxygen saturation in 2022-02-13 22:35:00 99 /min [facility] Body temperature 2022-02-13 21:15:00 36.5 Shabnam [facility] Body height 2022-02-13 21:15:00 172.7 cm [facility] Systolic blood 2022-01-30 19:05:00 140 mm[Hg] [facility] Diastolic blood 2022-01-30 19:05:00 79 mm[Hg] [facility] Heart rate 2022-01-30 19:05:00 83 /min [facility] Respiratory rate 2022-01-30 19:05:00 16 /min [facility] Oxygen saturation in 2022-01-30 19:05:00 100 /min [facility] blood by [facility] Body temperature 2022-01-30 16:57:00 36.61 Shabnam [facility] Body height 2022-01-30 16:57:00 170.2 cm [facility] Body weight 2022-01-30 16:57:00 86.183 kg [facility] BMI 2022-01-30 16:57:00 29.76 kg/m2 [facility] Systolic blood 2022-01-16 19:31:00 140 mm[Hg] [facility] Diastolic blood 2022-01-16 19:31:00 82 mm[Hg] [facility] Heart rate 2022-01-16 19:31:00 79 /min [facility] Respiratory rate 2022-01-16 19:31:00 18 /min [facility] Oxygen saturation in 2022-01-16 19:31:00 99 /min [facility] blood by [facility] Body weight 2022-01-16 17:42:00 85.276 kg [facility] BMI 2022-01-16 17:42:00 29.44 kg/m2 [facility] Body temperature 2022-01-16 17:41:00 36.83 Shabnam [facility] Systolic blood 2022 02:00:00 148 mm[Hg] [facility] Diastolic blood 2022 02:00:00 83 mm[Hg] [facility] Heart rate 2022 02:00:00 79 /min [facility] Respiratory rate 2022 02:00:00 20 /min [facility] Oxygen saturation in 2022 02:00:00 98 /min [facility] blood by [facility] Body weight 2022-01-12 23:58:00 72.576 kg [facility] BMI 2022-01-12 23:58:00 25.06 kg/m2 [facility] Systolic blood 2022-01-12 20:14:00 139 mm[Hg] [facility] Diastolic blood 2022-01-12 20:14:00 93 mm[Hg] [facility]ive [facility] Heart rate 2022-01-12 20:14:00 91 /min [facility] Respiratory rate 2022-01-12 20:14:00 18 /min [facility] [place] [facility] Body height 2022-01-12 20:14:00 170.2 cm [facility] Body weight 2022-01-12 20:14:00 72.576 kg [facility] BMI 2022-01-12 20:14:00 25.06 kg/m2 [facility] Oxygen saturation in 2022-01-12 20:14:00 99 /min [facility] [place] [facility] Systolic blood 2021-12-28 16:22:00 116 mm[Hg] [facility] Diastolic blood 2021-12-28 16:22:00 76 mm[Hg] [facility] Heart rate 2021-12-28 16:22:00 78 /min [facility] Body temperature 2021-12-28 16:22:00 35.78 Shabnam [facility] Oxygen saturation in 2021-12-28 16:22:00 100 /min [facility] [place] [facility] Respiratory rate 2021-12-28 12:52:00 18 /min [facility] Body weight 2021-12-28 08:15:00 75.978 kg [facility] BMI 2021-12-28 08:15:00 25.47 kg/m2 [facility] Body height 2021-12-25 22:02:00 172.7 cm [facility] Systolic blood 2021-12-14 19:55:00 120 mm[Hg] [facility] Diastolic blood 2021-12-14 19:55:00 94 mm[Hg] [facility]ive rs[facility] Heart rate 2021-12-14 19:55:00 93 /min [facility] Body temperature 2021-12-14 19:55:00 36.56 Shabnam [facility] Respiratory rate 2021-12-14 19:55:00 16 /min [facility] [place] [facility] Body height 2021-12-14 19:55:00 172.7 cm [facility] Body weight 2021-12-14 19:55:00 81.647 kg [facility] BMI 2021-12-14 19:55:00 27.37 kg/m2 [facility] Oxygen saturation in 2021-12-14 19:55:00 100 /min [facility] Systolic blood 2021-12-09 16:13:00 139 mm[Hg] [facility]iver [facility] Diastolic blood 2021-12-09 16:13:00 88 mm[Hg] [facility]ive rs[facility] Heart rate 2021-12-09 16:13:00 77 /min [facility] Body temperature 2021-12-09 16:13:00 36.06 Shabnam [facility] Respiratory rate 2021-12-09 16:13:00 18 /min [facility] Oxygen saturation in 2021-12-09 16:13:00 95 /min [facility] by [facility] Body weight 2021-12-09 08:54:00 78.971 kg [facility] BMI 2021-12-09 08:54:00 26.47 kg/m2 [facility] Systolic blood 2021-11-23 19:30:00 140 mm[Hg] [facility] Diastolic blood 2021-11-23 19:30:00 83 mm[Hg] Unive rsity [facility] pressure [facility] Heart rate 2021-11-23 19:30:00 79 /min [facility] Oxygen saturation in 2021-11-23 19:30:00 100 /min [facility] Body temperature 2021-11-23 18:42:00 36.44 Shabnam [facility] Respiratory rate 2021-11-23 18:39:00 20 /min [facility] Body height 2021-11-23 18:39:00 172.7 cm [facility] Body weight 2021-11-23 18:39:00 83.598 kg [facility] BMI 2021-11-23 18:39:00 28.02 kg/m2 [facility] Systolic blood 2021-11-09 21:10:00 169 mm[Hg] [facility] Diastolic blood 2021-11-09 21:10:00 80 mm[Hg] Unive rs[facility] Heart rate 2021-11-09 21:10:00 85 /min [facility] Respiratory rate 2021-11-09 21:10:00 16 /min [facility] Oxygen saturation in 2021-11-09 21:10:00 94 /min [facility] [place] [facility] Body temperature 2021-11-09 19:49:00 36.83 Shabnam [facility] Body height 2021-11-09 19:49:00 172.7 cm [facility] Body weight 2021-11-09 19:49:00 90.719 kg [facility] BMI 2021-11-09 19:49:00 30.41 kg/m2 [facility] Systolic blood 2021-10-18 15:17:00 149 mm[Hg] [facility] Diastolic blood 2021-10-18 15:17:00 79 mm[Hg] [facility]ive rs[facility] Heart rate 2021-10-18 15:17:00 77 /min [facility] Body temperature 2021-10-18 15:17:00 36.61 Shabnam [facility] Respiratory rate 2021-10-18 15:17:00 16 /min [facility] Body weight 2021-10-18 15:17:00 90.719 kg [facility] Oxygen saturation in 2021-10-18 15:17:00 98 /min [facility] blood by [employer] [facility] Procedures Procedure Date / Time Performing Clinician Source Performed MA ABDOM PARACENTESIS 2022-08-12 16:58:16 Kev Nguyen [facility] DX/THER W/IMAGING [facility] GUIDANCE XR CHEST 1 VW 2022-08-12 15:57:01 Abdon [facility] LIPASE 2022-08-12 15:28:00 Abdon [facility] COMP. METABOLIC PANEL 2022-08-12 15:28:00 Abdon [facility] ([id number]) [facility] CBC WITH DIFF 2022-08-12 15:28:00 Abdon [facility] PROTHROMBIN TIME / INR 2022-08-12 15:28:00 Abdon, [facility] CONSENT/REFUSAL FOR 2022-08-12 15:02:09 Doctor Unassigned, No Un [facility] DIAGNOSIS AND TREATMENT Name [facility] ASSIGNMENT OF BENEFITS 2022-06-06 18:38:18 Doctor Unassigned, No [facility] LIPASE 2022-06-05 13:17:00 Rodney [facility] HEPATIC FUNCTION PANEL 2022-06-05 13:17:00 Rodney [facility] ([id number]) (ALB,T.PRO,BILI [facility] T,BU/BC,ALT,AST,ALK PHOS) BASIC METABOLIC PANEL 2022-06-05 13:17:00 Rodney [facility] (NA, K, CL, CO2, Medical Branch GLUCOSE, BUN, CREATININE, CA) CBC WITH DIFF 2022-06-05 13:17:00 Rodney [facility] PROTHROMBIN TIME / INR 2022-06-05 13:17:00 Rodney [facility] ACTIVATED PARTIAL 2022-06-05 13:17:00 Rodney [facility] THRMPLAS [facility] CONSENT/REFUSAL FOR 2022-06-05 11:43:52 Doctor Unassigned, No [facility] DIAGNOSIS AND TREATMENT Name [facility] BODY FLUID DIRECT COUNT 2022-05-31 23:03:00 Mohr, [facility] HEPATIC FUNCTION PANEL 2022-05-31 21:22:00 Onur Jeremias [facility] ([id number]) (ALB,T.PRO,BILI Medical Branch T,BU/BC,ALT,AST,ALK PHOS) CBC WITH DIFF 2022-05-31 19:08:00 Onur [facility] BASIC METABOLIC PANEL 2022-05-31 19:00:00 Mohr, [facility] (NA, K, CL, CO2, [facility] GLUCOSE, BUN, CREATININE, CA) PROTHROMBIN TIME / INR 2022-05-31 19:00:00 Onur Jeremias [facility] CONSENT/REFUSAL FOR 2022-05-31 18:40:37 Doctor Unassigned, No Un [facility] DIAGNOSIS AND TREATMENT Name [facility] [place] BASIC METABOLIC PANEL 2022-04-11 22:15:00 Shantell Rivera [facility] (NA, K, CL, CO2, [facility] GLUCOSE, BUN, CREATININE, CA) BLOOD CULTURE SCREEN 2022-04-11 16:47:00 Rivera Stinson [facility] MAGNESIUM 2022-04-11 09:39:00 Edward [facility] COMP. METABOLIC PANEL 2022-04-11 09:39:00 Eddie [facility] ([id number]) [facility] CBC WITH DIFF 2022-04-11 09:39:00 Edward [facility] HCV ANTIBODY 2022-04-11 09:39:00 Edward [facility] HEPATITIS C VIRUS (HCV) 2022-04-11 09:39:00 Edward [facility] BY QUANTITATIVE NAAT [facility] T.PROTEIN BODY FLUID 2022-04-11 06:15:00 Eddie Doyle [facility] BODY FLUID DIRECT COUNT 2022-04-11 06:15:00 Eddie [facility] BODY FLUID (BACTEC 2022-04-11 06:15:[address] [facility] BOTTLE) [facility] COMP. METABOLIC PANEL 2022-04-10 21:26:00 Bucky Gloria [facility] ([id number]) Medical Branch CBC WITH DIFF 2022-04-10 21:26:00 Bucky Gloria [place] [facility] GLYCOSYLATED HEMOGLOBIN 2022-04-10 21:26:00 Jessica Leon [facility] ([id number]) [facility] [place] PROTHROMBIN TIME / INR 2022-04-10 21:26:00 Bucky Gloria [facility] ACTIVATED PARTIAL 2022-04-10 21:26:00 Bucky Gloria [facility] THRMPLAS [facility] CONSENT/REFUSAL FOR 2022-04-10 19:58:33 Doctor Unassigned, No [facility] [place] [facility]REAT[facility] Name [facility] HOSPITAL ADMISSION 2022-04-10 06:01:00 Doctor Unassigned, No Uni versity [facility] MA ABDOM PARACENTESIS 2022-03-27 20:57:39 Gini [facility] DX/THER W/IMAGING Medical Branch GUIDANCE COMP. METABOLIC PANEL 2022-03-27 18:56:00 Gini [place] [facility] ([id number]) [facility] CBC WITH DIFF 2022-03-27 18:56:00 Gini [facility] PROTHROMBIN TIME / INR 2022-03-27 18:56:00 Gini [facility] MA ABDOM PARACENTESIS 2022-03-12 18:32:33 Kev [facility] DX/THER W IMAGING [facility] GUIDANCE CONSENT/REFUSAL FOR 2022-03-12 17:29:10 Doctor Unassigned, No [facility] [place] DI[facility] AND TREATMENT [facility] Medical Branch MA ABDOM PARACENTESIS 2022-02-27 21:29:57 Kev Nguyen [facility] DX/THER W IMAGING [facility] GUIDANCE CONSENT/REFUSAL FOR 2022-02-27 21:02:37 Doctor Unassigned, No [facility] [place] DI[facility] AND TREATMENT [facility] Medical Branch MA ABDOM PARACENTESIS 2022-02-13 21:42:20 Kev Nguyen [facility] DX/THER W IMAGING [facility] GUIDANCE CONSENT/REFUSAL FOR 2022-02-13 21:08:22 Doctor Unassigned, No [facility] [place] DIAGNOSIS AND TREATMENT Name [facility] MA ABDOM PARACENTESIS 2022-01-30 19:16:37 Kev Nguyen [facility] DX/THER W IMAGING [facility] GUIDANCE CONSENT/REFUSAL FOR 2022-01-30 16:51:04 Doctor Unassigned, No [facility] [place] DI[facility]NOSIS AND TREATMENT Name [facility] MA ABDOM PARACENTESIS 2022-01-16 19:17:58 Kev Nguyen [facility] DX/THER W IMAGING [facility] GUIDANCE CONSENT/REFUSAL FOR 2022-01-16 17:29:44 Doctor Unassigned, No [facility] [place] DIAGNOSIS AND TREATMENT Name [facility] XR CHEST 1 VW 2022 01:47:22 Jaqui Romano [facility] COMP. METABOLIC PANEL 2022 01:19:00 Jaqui Romano [facility] ([id number]) [facility] CBC WITH DIFF 2022 01:19:00 Jaqui Romano [facility] PROTHROMBIN TIME / INR 2022 01:19:00 Jaqui Romano [facility] ACTIVATED PARTIAL 2022 01:19:[address] [facility] CONSENT/REFUSAL FOR 2022-01-12 22:44:32 Doctor Unassigned, No [facility] [place] DI[facility]NOS[facility] TREATMENT Name [facility] CONSENT/REFUSAL FOR 2022-01-12 20:00:19 Doctor Unassigned, No [facility] [place] DIAGNOS[facility] TREATMENT Name [facility] POCT GLUCOSE (AUTOMATED) 2021-12-28 12:54:00 [facility] BASIC METABOLIC PANEL 2021-12-28 08:19:00 [facility] [place] (NA, K, CL, CO2, [facility] GLUCOSE, BUN, CREATININE, CA) CBC WITH DIFF 2021-12-28 08:19:00 Danielle Rothman [facility] BODY FLUID DIRECT COUNT 2021-12-28 01:21:00 Gee [facility] BODY FLUID 2021-12-28 01:21:00 Gee, Irfan [facility] CULTURE(AEROBIC/ANAEROBI [facility] C) POCT GLUCOSE (AUTOMATED) 2021-12-28 00:42:00 [facility] POCT GLUCOSE (AUTOMATED) 2021-12-27 21:53:00 [facility] POCT GLUCOSE (AUTOMATED) 2021-12-27 16:33:00 August[facility] POCT GLUCOSE (AUTOMATED) 2021-12-27 12:29:00 [facility] BASIC METABOLIC PANEL 2021-12-27 09:27:00 Danielle Rothman [facility] (NA, K, CL, CO2, [facility] GLUCOSE, BUN, CREATININE, CA) CBC WITH DIFF 2021-12-27 09:27:00 Danielle Rothman [facility] POCT GLUCOSE (AUTOMATED) 2021-12-27 01:11:00 [facility] 2021-12-26 21:17[facility]00 [facility] 2021-12-26 16:48:00 [facility] ([facility]) 2021-12-26 12:47:00 Ted [facility] LACTATE DEHYDROGENASE 2021-12-26 09:26:00 Ted [facility] MAGNESIUM 2021-12-26 09:26:00 Ted [facility] HEPATIC FUNCTION PANEL 2021-12-26 09:26:00 Ted [facility] ([id number]) (ALB,T.PRO,BILI Medical Branch T,BU/BC,ALT,AST,ALK PHOS) BASIC METABOLIC PANEL 2021-12-26 09:26:00 Ted [facility] (NA, K, CL, CO2, [facility] GLUCOSE, BUN, CREATININE, CA) CBC WITH DIFF 2021-12-26 09:26:00 Ted [facility] POCT GLUCOSE (AUTOMATED) 2021-12-26 00:44:00 [facility] ([facility]OMATED) 2021-12-25 23:16:00 [facility] URINALYSIS 2021-12-25 15:12:00 Chilo Oliva [facility] XR CHEST 2 VW 2021-12-25 14:56:42 Chilo Oliva [facility] COMP. METABOLIC PANEL 2021-12-25 14:31:00 Chilo Oliva [facility] ([id number]) [facility] CBC WITH DIFF 2021-12-25 14:31:00 Chilo Oliva [facility] PROTHROMBIN TIME / INR 2021-12-25 14:31:00 Chilo Oliva [facility] ACTIVATED PARTIAL 2021-12-25 14:31:[address] [facility] CONSENT/REFUSAL FOR 2021-12-25 13:31:05 Doctor Unassigned, No Un iversity [facility] DIAGNOSIS AND TREATMENT Name [facility] BASIC METABOLIC PANEL 2021-12-14 22:07:00 Mike Hoffman [facility] (NA, K, CL, CO2, Medical Branch GLUCOSE, BUN, CREATININE, CA) CBC WITH DIFF 2021-12-14 22:07:00 Mike Hoffman [facility] CONSENT/REFUSAL FOR 2021-12-14 19:51:33 [facility] Name [facility] POCT GLUCOSE (AUTOMATED) 2021-12-09 16:37:00 Alisha Cha [facility] POCT GLUCOSE (AUTOMATED) 2021-12-09 12:50:00 Alisha Cha [facility] BASIC METABOLIC PANEL 2021-12-09 08:57:00 [facility] ([facility], K, CL, CO2, Medical Branch GLUCOSE, BUN, CREATININE, CA) POCT GLUCOSE (AUTOMATED) 2021-12-09 01:54:00 Alisha Cha [facility] POCT GLUCOSE (AUTOMATED) 2021-12-08 21:56:00 Alisha [facility] POCT GLUCOSE (AUTOMATED) 2021-12-08 16:49:00 Alisha [facility] POCT GLUCOSE (AUTOMATED) 2021-12-08 14:07:00 Alisha Cha [facility] PHOSPHORUS 2021-12-08 08:58:00 Dusty Josue [facility] URIC ACID 2021-12-08 08:58:00 Dusty Josue [facility] MAGNESIUM 2021-12-08 08:58:00 Dusty Josue [facility] AMMONIA, PLASMA 2021-12-08 08:58:00 Dusty Josue [facility] BASIC METABOLIC PANEL 2021-12-08 08:58:00 Danielle Rothman [facility] (NA, K, CL, CO2, Medical [place] GLUCOSE, BUN, CREATININE, CA) IRON PANEL 2021-12-08 08:58:00 Dusty Josue [facility] CBC WITH DIFF 2021-12-08 08:58:00 Danielle Rothman [facility] URINALYSIS 2021-12-08 02:26:00 Willy [facility] POTASSIUM, URINE RANDOM 2021-12-08 02:25:00 Willy [facility] SODIUM, URINE RANDOM 2021-12-08 02:25:00 Willy [facility] PROTEIN CREAT RATIO 2021-12-08 02:25:00 Willy, [facility] URINE RANDOM [facility] OSMOLALITY URINE 2021-12-08 02:23:00 Willy, [facility] POCT GLUCOSE (AUTOMATED) 2021-12-08 02:08:00 Alisha Cha [facility] MA ABDOM PARACENTESIS 2021-12-07 22:45:00 Bucky Gloria [facility] DX/THER W IMAGING [facility] GUIDANCE PHOSPHORUS 2021-12-07 19:33:00 Danielle Rothman [facility] CREATINE KINASE 2021-12-07 19:33:00 [facility] MAGNESIUM 2021-12-07 19:33:00 Stephan Danielle Marianne [facility] LIPID PANEL 2021-12-07 19:33:00 Stephan [facility] ([id number])(TOTAL Medical Branch CHOLESTEROL, TRIGLYCERIDES, HDL) N-TERMINAL PRO-BNP 2021-12-07 19:33[facility]00 [facility]. METABOLIC PANEL 2021-12-07 16:02:00 Bucky Gloria [facility] ([id number]) [facility] CBC WITH DIFF 2021-12-07 16:02:00 Faizan [facility] GLYCOSYLATED HEMOGLOBIN 2021-12-07 16:02:00 Stephan [facility] (A1C) [facility] PROTHROMBIN TIME / INR 2021-12-07 16:02:00 Faizan Bucky [facility] ACTIVATED PARTIAL 2021-12-07 16:02:00 Faizan [facility] THRMPLAS [facility] CONSENT/REFUSAL FOR 2021-12-07 15:35:39 Doctor Unassigned, No [facility] [place] DIAGNOSIS AND TREATMENT [facility] MA ABDOM PARACENTESIS 2021-11-23 19:39:58 Jonna Lance [facility] DX/THER W IMAGING [facility] GUIDANCE CONSENT/REFUSAL FOR 2021-11-23 18:36:31 Doctor Unassigned, No [facility] [place] DIAGNOSIS AND TREATMENT [facility] MA ABDOM PARACENTESIS 2021-11-09 20:59:55 Kev Nguyen [facility] DX/THER W IMAGING [facility] Branch GUIDANCE CONSENT/REFUSAL FOR 2021-11-09 19:35:17 Doctor Unassigned, No Un [facility] [place] DIAGNOSIS AND TREATMENT [facility] NOTICE OF PRIVACY 2021-11-09 19:32:40 Doctor Unassigned, No Univ ersity [facility] PRACTICES Name [facility] Branch LIPASE 2021-10-18 15:50:00 Annabelle Ramirez [facility] COMP. METABOLIC PANEL 2021-10-18 15:50:00 Annabelle Ramirez [facility] [place] ([id number]) [facility] CBC WITH DIFF 2021-10-18 15:50:00 Annabelle Ramirez Universi ty of [facility] CONSENT/REFUSAL FOR 2021-10-18 15:18:16 Doctor Unassigned, No Un iversity [facility] DIAGNOSIS AND TREATMENT Name [facility] Encounters Start End Encounter Admission Attending Care Care Encounter Source Date/Time Date/Time Type Type Clinicians Facility Department ID 2022-08-13 2022-08-13 Outpatient [facility] [id number] [place] 08:09:25 08:09:25 [id number] F [place] 2022-08-12 2022-08-12 [facility] [id number] Univers 10:04:00 12:47:00 CYNISE ity of [facility] 2022-08-12 2022-08-12 [facility] [id number] [id number] Univers 10:04:00 12:47:00 Mike SOSA 350.1.13.10 i ty [facility] 4.2.7.2.[address] [facility] [phone] [facility] [address] [place] 2022-06-13 2022-06-13 Outpatient [facility] [id number] [place] 09:35:42 09:35:42 [id number] [place] 2022-06-06 2022-06-06 Office Cleve MAEMILIA 1.2.840.114 [id number] Univers 14:30:00 15:00:00 Visit [facility] SPECIALTY 350.1.13.10 ity of CARE 4.2.7.2.686 [facility] AT [phone] Mo farrah PALACIOSYasmeen 2 [facility] 2022-06-06 2022-06-06 Outpatient R CLEVE [facility] [id number] Univers 14:30:00 14:30:00 LEILA ity of [facility] 2022-06-06 2022-06-06 Orders Doctor ALVARADO 1.2.840.114 [id number] Univers 00:00:00 00:00:00 Only Unassigned, CARL 350.1.13.10 ity of [place] [facility] 4.2.7.2.686 Henrique as [phone] [facility] 009 Branch 2022-06-05 2022-06-05 Emergency X JOSÉ MIGUEL HUMPHRIES [facility] ERT 1 [id number] Univers 06:51:00 10:20:00 JOSÉ MIGUEL HUMPHRIES ity of [facility] 2022-06-05 2022-06-05 Emergency Rodney, TRAUMA 1.2.946.023 [id number] Univers 06:51:00 10:20:00 [facility] 350.1.13.10 [place] [id number] [facility] 014 Branch 2022-05-31 2022-05-31 Emergency X JEREMIAS MOHR [facility] ERT 1 [id number] Univers 13:40:00 19:16:00 JEREMIAS MOHR ityasmeen [facility] 2022-05-31 2022-05-31 Emergency Mohr, TRAUMA 1.2.275.826 [id number] Univers 13:40:00 19:16:00 [facility] 350.1.13.10 it [place] [id number] [facility] [address] [place] 2022-05-13 2022-05-13 Outpatient SFA [facility] [id number] [place] 08:36:17 08:36:17 [id number] F [place] 2022-04-10 2022-04-11 Outpatient U DION [facility] NICOLE [id number] Univers 14:05:00 17:45:00 GEETA reynoso [facility] 2022-04-10 2022-04-11 Emergency Bucky Gloria 1.2.840. 114 [id number] Univers 14:05:00 17:45:00 Geeta Young 350.1.13.10 ity of [facility] 4.2.7.2.686 [place] [id number] [facility] 093 Branch 2022-03-27 2022-03-27 Emergency X KITA [facility] ERT [id number] Univers 12:34:00 17:18:00 GINI ity [facility] 2022-03-27 2022-03-27 Emergency Kita [facility] 1.2.300.797 [id number] Univers 12:34:00 17:18:00 Gini SOSA 350.1.13.10 ity of [place] 4.2.7.2.[address] [facility] [phone] [address] 2022-03-26 2022-03-26 Outpatient [facility] [id number] [place] 10:22:23 10:22:23 [id number] [place] 2022-03-25 2022-03-25 Outpatient [facility] [place] 13:11:32 13:11:32 [id number] [place] 2022-03-12 2022-03-12 Emergency X NGUYEN, [facility] ERT [id number] Univers 11:38:00 14:36:00 KEV reynoso [facility] 2022-03-12 2022-03-12 Emergency Nguyen, [facility] 1.2.275.459 [id number] Univers 11:38:00 14:36:00 Kev SOSA 350.1.13.10 i ty of [place] [address] [place] [id number] 2022-02-27 2022-02-27 Emergency X NGUYEN, [facility] ERT [id number] Univers 15:04:00 16:07:00 KEV reynoso [facility] 2022-02-27 2022-02-27 Emergency Nguyen, [facility] 1.2.493.095 [id number] Univers 15:04:00 16:07:00 Kev SHEILA 350.1.13.10 i ty of [place] 4.2.7.2.[address] [facility] [id number] [address] 2022-02-13 2022-02-13 Emergency X NGUYEN, [facility] ERT [id number] Univers 15:17:00 16:45:00 KEV reynoso [facility] 2022-02-13 2022-02-13 Emergency [facility] 1.2.068.759 [id number] Univers 15:17:00 16:45:00 Kev SOSA 350.1.13.10 i ty of [place] [address] [place] [id number] 2022-01-30 2022-01-30 Emergency X , [facility] ERT [id number] Univers 10:58:00 13:28:00 KEV reynoso [facility] 2022-01-30 2022-01-30 Emergency Lila Leo [facility] 1.2.840. 114 [id number] Univers 10:58:00 13:28:00 Kev Nguyen 350.1.13.10 ity of [place] [id number] [facility] 084 Branch 2022-01-16 2022-01-16 Emergency X SINGER [facility] ERT [id number] Univers 11:43:00 14:30:00 KEV reynoso [facility] 2022-01-16 2022-01-16 Emergency [facility] 1.2.734.956 [id number] Univers 11:43:00 14:30:00 Kev SOSA 350.1.13.10 i ty of [place] [id number] [facility] [address] [place] 2022-01-16 2022-01-16 Orders Doctor JENNY 1.2.840.114 [id number] Univers 00:00:00 00:00:00 Only Unassigned, CARL 350.1.13.10 ity of [place] [facility] 4.2.7.2.686 [place] [phone] [facility] 009 Branch 2022-01-12 2022-01-12 Emergency X ZIYAD [facility] ERT [id number] Univers 17:45:00 21:44:00 JAQUI reynoso [facility] 2022-01-12 2022-01-12 Emergency Dalmedo, Samuel [place] 1.2.840 .114 [id number] Univers 17:45:00 21:44:00 Jaqui Romano 350.1.13.10 [place] [id number] [facility] 014 Branch 2022-01-12 2022-01-12 Emergency X BERNIE [facility] ERT [id number] Univers 15:17:00 15:27:00 MAGNOLIA egdardo [facility] 2022-01-12 2022-01-12 Emergency [facility], [facility] 1.2.066.594 [id number] Univers 15:17:00 15:27:00 Magnolia Claros SHEILA 350.1.13.10 ity of [place] 4.2.7.2.[address] [facility] [id number] [facility] 084 Branch 2022-01-01 2022-01-01 Transition FragosoALYObdulio 1.2.840.114 [id number] Univers 00:00:00 00:00:00 of Care Analia AVERY 350.1.13.10 ity of [place] 4.2.7.2.686 [facility] [id number] [facility] 403 Branch 2021-12-25 2021-12-28 Inpatient X TED [facility] NICOLE [id number] Univers 08:38:00 13:08:00 AUGUSTIN ity [facility] 2021-12-25 2021-12-28 [facility] Chilo Oliva [facility] 1.2.840. 114 [id number] Univers 08:38:00 13:08:00 Encounter Miranda Jeanjeff SOSA 350.1.13.10 ity [facility] 4.2.7.2.[address] [facility] [id number] [address] 2021-12-14 2021-12-14 Emergency [facility]RT [id number] Univers 14:56:00 18:52:00 MIKE reynoso [facility] 2021-12-14 2021-12-14 [facility] 1.2.573.341 [id number] Univers 14:56:00 18:52:00 Mike SOSA 350.1.13.10 i ty of [facility] 4.2.7.2.[address] [facility] [id number] [address] 2021-12-07 2021-12-09 Inpatient X SEMAJ [facility] NICOLE [id number] Univers 10:44:00 16:35:00 ALISHA ity [facility] 2021-12-07 2021-12-09 [facility] Bucky Gloria [facility] 1.2.840.1 14 [id number] Univers 10:44:00 16:35:00 Encounter Alisha Cha 350.1.13.10 ity of [facility] 4.2.7.2.[address] [facility] [id number] [facility] 081 Branch 2021-11-23 2021-11-23 Emergency [facility] ERT [id number] Univers 13:42:00 14:58:00 JONNA ityasmeen [facility] 2021-11-23 2021-11-23 Emergency [facility] 1.2.840.114 [id number] Univers 13:42:00 14:58:00 Jonna SOSA 350.1.13.10 ity of [place] 4.2.7.2.[address] [facility] [id number] [place] [id number] Branch 2021-11-09 2021-11-09 Emergency [facility]RT [id number] Univers 14:51:00 16:42:00 KEV edgardo [facility] 2021-11-09 2021-11-09 Emergency [facility] 1.2.319.497 [id number] Univers 14:51:00 16:42:00 Kev SOSA 350.1.13.10 i ty of [place] 4.2.7.2.[address] [facility] [id number] [facility] 084 Branch 2021-11-09 2021-11-09 Orders Doctor JENNY 1.2.840.114 [id number] Univers 00:00:00 00:00:00 Only Unassigned, CARL 350.1.13.10 ity of [place] [facility] 4.2.7.2.686 [place] [id number] [facility] 009 Branch 2021-10-18 2021-10-18 Emergency [facility] ERT [id number] Univers 10:21:00 11:56:00 ANNABELLE cedenoy [facility] 2021-10-18 2021-10-18 Emergency Ibikunle, TRAUMA 1.2.840.114 [id number] Univers 10:21:00 11:56:00 [facility] 350.1.13.10 ity of 4.2.7.2.686 [facility] [id number] Medi rosario 014 Branch Results Test Description Test Time Test Comments Results Result Comments Source BASIC METABOLIC PANEL (NA, K, CL, CO2, GLUCOSE, BUN, 2022-05 13:40:36 CREATININE, CA) Test Item Value Reference Range Interpretation Comme nts NA (test code = 8678127596) 138 mmol/L 135-145 K (test code = 4205399218) 4.8 mmol/L 3.5-5.0 CL (test code = 0153090359) 102 mmol/L 98-108 CO2 TOTAL (test code = 8240524202) 32 mmol/L 23-31 H AGAP (test code = 9523261765) 4 2-16 BUN (test code = 3418649352) 45 mg/dL 7-23 H GLUCOSE (test code = 4282656018) 163 mg/dL 70-110 H CREATININE (test code = 2.52 mg/dL 0.60-1.25 H 8893975949) CALCIUM (test code = 8774282515) 8.1 mg/dL 8.6-10.6 L eGFR (test code = 9807799296) 25.8 mL/min/1.73m2 RODRIGO (test code = RODRIGO) [...] tests). Lab Interpretation (test code = Abnormal 66868-7) [facility] (ALB,T.PRO,BILI T,BU/BC,ALT,AST,ALK PHOS)2022-06-05 13:40:36 Test Item Value Reference Range Interpretation Comments TOTAL BILI (test code = 2018579117) 0.4 mg/dL 0.1-1.1 BILI UNCON (test code = 3414992552) 0.1 mg/dL 0.1-1.1 BILI CONJ (test code = 3808846121) 0.0 mg/dL 0.0-0.3 T PROTEIN (test code = 8804968992) 6.0 g/dL 6.3-8.2 L ALBUMIN (test code = 3588406677) 2.9 g/dL 3.5-5.0 L ALK PHOS (test code = 9290580331) 71 U/L 34-122 ALTv (test code = 1742-6) 15 U/L 5-50 AST(SGOT) (test code = 8202904939) 23 U/L 13-40 Lab Interpretation (test code = Abnormal 37005-7) [facility] 13:40:36 Test Item Value Reference Range Interpretation Comments LIPASE (test code = 2395789712) 125 U/L 0-220 Lab Interpretation (test code = Normal 49550-4) [facility] THRMPLAS [id number] 13:37:54 Test Item Value Reference Range Interpretation Comments APTT Patient (test code 38 See_Comment H [Au tomated message] = 1373-2) The system conXt generated this result transmitted ref erence range: 26 - 36 Seconds. The reference range was not used to int erpret this result as normal/abnormal . Lab Interpretation (test Abnormal code = 02087-9) [facility] HospitalPROTHROMBIN TIME / [id number] 13:37:54 Test Item Value Reference Range Interpretation [...] tions. Lab Interpretation (test Abnormal code = 70238-2) [facility] WITH [id number] 13:31:36 Test Item Value Reference Range Interpretation Comments WBC (test code = 4.39 See_Comment [Automated 6690-2) message] The sy stem which generated this result transmitted reference range : 4.20 - 10.70 10*3/?L. The reference range was not used to interpret this result as normal/abnormal . RBC (test code = 3.48 See_Comment L [Automated 789-8) message] The sy [...] RDW-SD (test code = 45.2 fL 38.5-51.6 10151-4) RDW-CV (test code = 13.9 % 12.1-15.4 788-0) PLT (test code = 123 See_Comment L [Automated 777-3) message] The sy stem which generated this result transmitted reference range : 150 - 328 10*3/ ?L. The reference r kelin was not used to interpret this result as normal/abnormal . MPV (test code = 9.7 fL 9.8-13.0 L 97600-1) NRBC/100 WBC (test 0.0 See_Comment [Automat ed code = 7620646742) message] The system which generated this result transmitted reference range : 0.0 - 10.0 /100 WBCs. The refer ence range was not u sed to interpret th is result as normal/abnormal . NRBC x10^3 (test code See_Comment [Auto mated = 7272878638) message] The s ystem which generated this result transmitted reference range : 10*3/?L. The reference range was not used to interpret this result as normal/abnormal . GRAN MAT (NEUT) % 74.0 % (test code = 770-8) IMM GRAN % (test code 0.70 % = 9174577643) LYMPH % (test code = 10.9 % 736-9) MONO % (test code = 11.2 % 5905-5) EOS % (test code = 2.7 % 713-8) BASO % (test code = 0.5 % 706-2) GRAN MAT x10^3(ANC) 3.25 10*3/uL 1.99-6.95 (test code = 6266690607) IMM GRAN x10^3 (test 0.03 10*3/uL 0.00-0.06 code = 7982591953) LYMPH x10^3 (test code 0.48 10*3/uL 1.09-3.23 L = 731-0) MONO x10^3 (test code 0.49 10*3/uL 0.36-1.02 = 742-7) EOS x10^3 (test code = 0.12 10*3/uL 0.06-0.53 711-2) BASO x10^3 (test code 0.01-0.09 = 704-7) Lab Interpretation Abnormal (test code = 64533-8) [facility] METABOLIC PANEL (NA, K, CL, CO2, GLUCOSE, BUN, CREATININE, CA)2022-05-31 19:22:56 Test Item Value Reference Range Interpretation Comments NA (test code = 136 mmol/L 135-145 6945839750) K (test code = 5.2 mmol/L 3.5-5.0 H 6344622279) CL (test code = 100 mmol/L 98-108 8339728223) CO2 TOTAL (test code = 29 mmol/L 23-31 8594335771) AGAP (test code = 7 2-16 0267381753) BUN (test code = 49 mg/dL 7-23 H 9327927873) GLUCOSE (test code = 115 mg/dL 70-110 H 6306993468) CREATININE (test code = 2.47 mg/dL 0.60-1.25 H 7264301667) CALCIUM (test code = 8.3 mg/dL 8.6-10.6 L 8412467452) eGFR (test code = 26.4 mL/min/1.73m2 3019279166) RODRIGO (test code = RODRIGO) Association of [...] tests). Lab Interpretation Abnormal (test code = 82601-0) [facility] WITH [id number] 19:14:12 Test Item Value Reference Range Interpretation [...] RDW-SD (test code = 46.5 fL 38.5-51.6 43157-0) RDW-CV (test code = 14.3 % 12.1-15.4 788-0) PLT (test code = 163 See_Comment [Automated 777-3) message] The sy stem which generated this result transmitted reference range : 150 - 328 10*3/ ?L. The reference r kelin was not used to interpret this result as normal/abnormal . MPV (test code = 9.2 fL 9.8-13.0 L 79079-4) NRBC/100 WBC (test 0.0 See_Comment [Automat ed code = 9929386446) message] The system which generated this result transmitted reference range : 0.0 - 10.0 /100 WBCs. The refer ence range was not u sed to interpret th is result as normal/abnormal . NRBC x10^3 (test code See_Comment [Auto mated = 4766442345) message] The s ystem which generated this result transmitted reference range : 10*3/?L. The reference range was not used to interpret this result as normal/abnormal . GRAN MAT (NEUT) % 73.9 % (test code = 770-8) IMM GRAN % (test code 0.40 % = 3906166076) LYMPH % (test code = 13.1 % 736-9) MONO % (test code = 9.1 % 5905-5) EOS % (test code = 2.9 % 713-8) BASO % (test code = 0.6 % 706-2) GRAN MAT x10^3(ANC) 3.51 10*3/uL 1.99-6.95 (test code = 4528395244) IMM GRAN x10^3 (test 0.00-0.06 code = 0078025361) LYMPH x10^3 (test code 0.62 10*3/uL 1.09-3.23 L = 731-0) MONO x10^3 (test code 0.43 10*3/uL 0.36-1.02 = 742-7) EOS x10^3 (test code = 0.14 10*3/uL 0.06-0.53 711-2) BASO x10^3 (test code 0.03 10*3/uL 0.01-0.09 = 704-7) Lab Interpretation Abnormal (test code = 55283-1) [facility] / [id number] 19:12:09 Test Item Value Reference Range Interpretation Comments PROTIME PATIENT (test 12.7 See_Comment H [Auto mated message] code = 5964-2) The system [employer] generated this result transmitted ref erence range: 10.1 - 1 2.6 Seconds. The reference range was not used to int erpret this result as normal/abnormal . INR (test code = 6301-6) 1.1 Nor mal INR <1.1; Warfarin Therap eutic range 2.0 to 3. 0 or 2.5 to 3.5, dep ending upon the indica tions. Lab Interpretation (test Abnormal code = 20098-4) [facility] Hospital[facility]ODY FLUID MANUAL [id number] 22:52:46 Test Item Value Reference Range Interpretation Comments BF SEGS% (test 16 % code = 60519-9) BF LYMPHS% (test 50 % code = 47702-9) BF MACROPHAGE% 30 % (test code = 36694-0) BF MESOS% (test 4 % code = 14711-8) BF #CELLS CNTD 100 cells/uL (test code = 0327031327) RODRIGO (test code = Reviewed by HANG HERNANDES MD, Director of HEMATOPATHOLOGY [facility] HospitalTotal Protein Body [id number] 08:10:53 Test Item Value Reference Range Interpretation Comments T.PROT BF (test 3000.0 mg/dL code = 6301582948) UNSPUN BODY FLUID Light Yellow COLOR (test code = 5646575394) UNSPUN BODY FLUID Cloudy CLARITY (test code = 0407022369) SPUN BODY FLUID Light Yellow COLOR (test code = 5983692116) SPUN BODY FLUID Cloudy CLARITY (test code = 3157140191) Sediment (test code The sediment volume is = 2534729937) <0.01 mLs of the total fluid volume of 5 mLs and its color is red. RODRIGO (test code = Test developed and RODRIGO) characteristics determined by [facility] Laboratory Services. [facility] HospitalBODY FLUID DIRECT [id number] 08:09:17 Test Item Value Reference Range Interpretation Comments BF COLOR (test Yellow code = [id number]) TURBIDITY (test Turbid code = 7830000391) BF WBC Count 645 See_Comment [Automated (test code = message] The [id number]) system which generated this result transmitted reference range : /?L. The reference range was not used to interpret this result as normal/abnormal . BF RBC Count See_Comment [Automated (test code = message] The [id number]) system which generated this result transmitted reference range : /?L. The reference range was not used to interpret this result as normal/abnormal . RODRIGO (test code = The reference range RODRIGO) and other method performance specifications have not been established for this body fluid. ?The test results must be integrated into the clinical context for interpretation. [facility]1C)2022-04-11 04:15:40 Test Item Value Reference Range Interpretation Comments HGB A1C (test code = 5.0 % 4.0-5.7 4548-4) RODRIGO (test code = RODRIGO) Reference RangesNormal: <5.7%Prediabetes: 5.7 - 6.4%Diabetes: > 6.5% Lab Interpretation (test Normal code = 23824-7) [facility] THRM[facility] [id number] 21:53:50 Test Item Value Reference Range Interpretation Comments APTT Patient (test 27 See_Comment [Automat ed code = 3173-2) message] The system which generated this result transmitted reference range : 23 - 38 Seconds . The reference range was not used to interpr et this result as normal/abnormal . RODRIGO (test code = RODRIGO) The [facility] patient population mean normal value for aPTT is 30 seconds. Lab Interpretation Normal (test code = 41694-4) [facility] / [id number] 21:51:52 Test Item Value Reference Range Interpretation [...] tions. Lab Interpretation (test Normal code = 73270-6) [facility]OL[facility] ([id number])2022-04-10 21:50:30 Test Item Value Reference Range Interpretation Comments NA (test code = 138 mmol/L 135-145 7837841155) K (test code = 4.7 mmol/L 3.5-5.0 7262743414) CL (test code = 114 mmol/L 98-108 H 0582753815) CO2 TOTAL (test code = 21 mmol/L 23-31 L 8922851581) AGAP (test code = 3 2-16 3509743502) BUN (test code = 55 mg/dL 7-23 H 1568829433) GLUCOSE (test code = 119 mg/dL 70-110 H 9024532898) CREATININE (test code = 1.98 mg/dL 0.60-1.25 H 6054654833) TOTAL BILI (test code = 0.7 mg/dL 0.1-1.1 2617991653) CALCIUM (test code = 7.7 mg/dL 8.6-10.6 L 5203594993) T PROTEIN (test code = 6.0 g/dL 6.3-8.2 L 1634184444) ALBUMIN (test code = 2.5 g/dL 3.5-5.0 L 6006825344) ALK PHOS (test code = 85 U/L 34-122 5426953174) ALTv (test code = 23 U/L 5-50 1742-6) AST(SGOT) (test code = 33 U/L 13-40 8504375424) eGFR (test code = 34.1 mL/min/1.73m2 2573827747) RODRIGO (test code = RODRIGO) Association of [...] tests). Lab Interpretation Abnormal (test code = 55571-5) [facility] WITH [id number] 21:35:48 Test Item Value Reference Range Interpretation [...] RDW-SD (test code = 50.8 fL 38.5-51.6 64311-8) RDW-CV (test code = 16.6 % 12.1-15.4 H 788-0) PLT (test code = 170 See_Comment [Automated 777-3) message] The sy stem which generated this result transmitted reference range : 150 - 328 10*3/ ?L. The reference r kelin was not used to interpret this result as normal/abnormal . MPV (test code = 9.2 fL 9.8-13.0 L 75158-4) NRBC/100 WBC (test 0.0 See_Comment [Automat ed code = 7241424394) message] The system which generated this result transmitted reference range : 0.0 - 10.0 /100 WBCs. The refer ence range was not u sed to interpret th is result as normal/abnormal . NRBC x10^3 (test code See_Comment [Auto mated = 3466592072) message] The s ystem which generated this result transmitted reference range : 10*3/?L. The reference range was not used to interpret this result as normal/abnormal . GRAN MAT (NEUT) % 73.6 % (test code = 770-8) IMM GRAN % (test code 1.30 % = 7568018767) LYMPH % (test code = 12.6 % 736-9) MONO % (test code = 8.9 % 5905-5) EOS % (test code = 3.2 % 713-8) BASO % (test code = 0.4 % 706-2) GRAN MAT x10^3(ANC) 3.40 10*3/uL 1.99-6.95 (test code = 4965756504) IMM GRAN x10^3 (test 0.06 10*3/uL 0.00-0.06 code = 0300113577) LYMPH x10^3 (test code 0.58 10*3/uL 1.09-3.23 L = 731-0) MONO x10^3 (test code 0.41 10*3/uL 0.36-1.02 = 742-7) EOS x10^3 (test code = 0.15 10*3/uL 0.06-0.53 711-2) BASO x10^3 (test code 0.01-0.09 = 704-7) Lab Interpretation Abnormal (test code = 78506-3) [facility], [id number] 09:54:12SPECIMEN NUMBER: [id number] CULTURE, URINE SPECIMEN NUMBER: [id number] SPECIMEN COMMENT: URINE SOURCE:URINE REPORT STATUS: FINAL FINAL REPORT: 03/28/2022 10-50,000 CFU/ML UROGENITAL ANUPAM PRESENT NO COMMON [id number] 04:49:09 Test Item Value Reference Range Interpretation Comments MAGNESIUM (test code = 2226) 2.2 MG/DL 1.6-2.6 COMPREHENSIVE METABOLIC [id number] 04:36:10 Test Item Value Reference Range Interpretation Comments GLUCOSE (test code = 96 MG/DL 70-99 2216) BUN (test code = 39 MG/DL 8-23 H 2207) CREATININE (test 2.06 MG/DL 0.80-1.40 H code = 2214) eGFR (2020 CKD-EPI) 35 ML/MIN/1.73 >60 L (test code = 01493) CALC BUN/CREAT (test 19 RATIO 6-28 code = 2235) SODIUM (test code = 141 MEQ/L 045-172 5590) POTASSIUM (test code 4.3 MEQ/L 3.5-5.4 = 2227) CHLORIDE (test code 110 MEQ/L 95-107 H = 2214) CARBON DIOXIDE (test 20 MEQ/L 19-31 code = 2206) CALCIUM (test code = 8.3 MG/DL 8.5-10.5 L 2208) PROTEIN, TOTAL (test 5.6 G/DL 6.1-8.3 L code = 2229) ALBUMIN (test code = 2.5 G/DL 3.5-5.2 L 2200) CALC GLOBULIN (test 3.1 G/DL 1.9-3.7 code = 2240) CALC A/G RATIO (test 0.8 RATIO 1.0-2.6 [...] U/L 5-50 2218) CBC W/AUTO DIFF WITH [id number] 02:15:32 Test Item Value Reference Range Interpretation [...] message] code = 1065) WBC'S The system conXt generated this result transmitted ref erence range: [...] 0.00-0.11 UNLESS O THERWISE (test code = 98606) INDICATE D, ALL TESTING PERFORM ED ATCLINICAL PATH [facility], [facility]. [address] [place] [id number] [place] [address] DIRECTOR: SHERRI PLASENCIA M.D. CLIA NUMBER [id number] CAP ACCREDITATION N O. [id number] COMP. METABOLIC PANEL (08225)2022 01:50:35 Test Item Value Reference Range Interpretation Comments NA (test code = 136 mmol/L 135-145 5026072534) K (test code = 5.2 mmol/L 3.5-5.0 H 5995363403) CL (test code = 102 mmol/L 98-108 3177976396) CO2 TOTAL (test code = 26 mmol/L 23-31 3373456078) AGAP (test code = 2-16 3772984014) BUN (test code = 49 mg/dL 7-23 H 1958802272) GLUCOSE (test code = 143 mg/dL 70-110 H 2935455972) CREATININE (test code = 2.26 mg/dL 0.60-1.25 H 3893848743) TOTAL BILI (test code = 0.4 mg/dL 0.1-1.0 1226625643) CALCIUM (test code = 8.2 mg/dL 8.6-10.6 L 8776812764) T PROTEIN (test code = 6.8 g/dL 6.3-8.2 1447664514) ALBUMIN (test code = 2.9 g/dL 3.5-5.0 L 0052447004) ALK PHOS (test code = 101 U/L 34-122 9520239623) ALTv (test code = 14 U/L 5-50 1742-6) AST(SGOT) (test code = 21 U/L 13-40 0749127679) eGFR (test code = mL/min/1.73m2 8977692750) RODRIGO (test code = RODRIGO) Association of [...] tests). Lab Interpretation Abnormal (test code = 33636-8) [facility] / [id number] 01:37:54 Test Item Value Reference Range Interpretation [...] tions. Lab Interpretation (test Abnormal code = 45810-6) [facility]ACT[facility] THRMPLAS [id number] 01:37:54 Test Item Value Reference Range Interpretation Comments APTT Patient (test code See_Comment H [Au tomated message] = 3173-2) The system ic h generated this result transmitted ref erence range: 26 - 36 Seconds. The reference range was not used to int erpret this result as normal/abnormal . Lab Interpretation (test Abnormal code = 72567-7) [facility] WITH [id number] 01:33:12 Test Item Value Reference Range Interpretation Comments WBC (test code = See_Comment [Automated 6690-2) message] The sy stem which generated this result transmitted reference range : 4.20 - 10.70 10*3/?L. The reference range was not used to interpret this result as normal/abnormal . RBC (test code = See_Comment L [Automated 389-8) message] The sy stem which generated this [...] (test code = 54.2 fL 38.5-51.6 H 33879-6) RDW-CV (test code = 19.4 % 12.1-15.4 H 788-0) PLT (test code = See_Comment [Automated 777-3) message] The sy stem which generated this result transmitted reference range : 150 - 328 10*3/ ?L. The reference r kelin was not used to interpret this result as normal/abnormal . MPV (test code = 9.2 fL 9.8-13.0 L 69549-0) NRBC/100 WBC (test See_Comment [Automat ed code = 1620476957) message] The system which generated this result transmitted reference range : 0.0 - 10.0 /100 WBCs. The refer ence range was not u sed to interpret th is result as normal/abnormal . NRBC x10^3 (test code See_Comment [Auto mated = 8896841406) message] The s ystem which generated this result transmitted reference range : 10*3/?L. The reference range was not used to interpret this result as normal/abnormal . GRAN MAT (NEUT) % 75.8 % (test code = 770-8) IMM GRAN % (test code 0.80 % = 3007602098) LYMPH % (test code = 12.1 % 736-9) MONO % (test code = 8.3 % 5905-5) EOS % (test code = 2.5 % 713-8) BASO % (test code = 0.5 % 706-2) GRAN MAT x10^3(ANC) 4.56 10*3/uL 1.99-6.95 (test code = 8686311211) IMM GRAN x10^3 (test 0.05 10*3/uL 0.00-0.06 code = 9046509646) LYMPH x10^3 (test code 0.73 10*3/uL 1.09-3.23 L = 731-0) MONO x10^3 (test code 0.50 10*3/uL 0.36-1.02 = 742-7) EOS x10^3 (test code = 0.15 10*3/uL 0.06-0.53 711-2) BASO x10^3 (test code 0.03 10*3/uL 0.01-0.09 = 704-7) Lab Interpretation Abnormal (test code = 71760-7) [facility]2021-12-28 13:35:14 Test Item Value Reference Range Interpretation Comments POCT GLU (test code = 2074595784) 160 mg/dL 70-110 H Lab Interpretation (test code = Abnormal 80518-6) [facility] METABOLIC PANEL (NA, K, CL, CO2, GLUCOSE, BUN, CREATININE, CA)2021-12-28 09:59:31 Test Item Value Reference Range Interpretation Comments NA (test code = 135 mmol/L 135-145 9498202991) K (test code = 3.8 mmol/L 3.5-5 6726790259) CL (test code = 107 mmol/L 98-108 8429562530) CO2 TOTAL (test code = 25 mmol/L 23-31 4555398970) AGAP (test code = 2-16 4481443663) BUN (test code = 42 mg/dL 7-23 H 1002809766) GLUCOSE (test code = 150 mg/dL 70-110 H 5269529165) CREATININE (test code = 2.01 mg/dL 0.6-1.25 H 0368817450) CALCIUM (test code = 7.6 mg/dL 8.6-10.6 L 6386022968) eGFR (test code = mL/min/1.73m2 0533405300) RODRIGO (test code = RODRIGO) Association of [...] tests). Lab Interpretation Abnormal (test code = 72700-7) [facility] WITH [id number] 09:37:28 Test Item Value Reference Range Interpretation Comments WBC (test code = See_Comment L [Automated 0890-2) message] The sy stem which generated this [...] (test code = 52.0 fL 38.5-51.6 H 93125-5) RDW-CV (test code = 19.2 % 12.1-15.4 H 788-0) PLT (test code = See_Comment [Automated 777-3) message] The sy stem which generated this result transmitted reference range : 150 - 328 10*3/ ?L. The reference r kelin was not used to interpret this result as normal/abnormal . MPV (test code = 9.6 fL 9.8-13 L 17249-5) NRBC/100 WBC (test See_Comment [Automat ed code = 2876338150) message] The system which generated this result transmitted reference range : 0.0 - 10.0 /100 WBCs. The refer ence range was not u sed to interpret th is result as normal/abnormal . NRBC x10^3 (test code See_Comment [Auto mated = 4468764046) message] The s ystem which generated this result transmitted reference range : 10*3/?L. The reference range was not used to interpret this result as normal/abnormal . GRAN MAT (NEUT) % 75.3 % (test code = 770-8) IMM GRAN % (test code 0.60 % = 0383314512) LYMPH % (test code = 11.9 % 736-9) MONO % (test code = 9.6 % 5905-5) EOS % (test code = 2.3 % 713-8) BASO % (test code = 0.3 % 706-2) GRAN MAT x10^3(ANC) 2.34 10*3/uL 1.99-6.95 (test code = 3842977816) IMM GRAN x10^3 (test 0-0.06 code = 9995658006) LYMPH x10^3 (test code 0.37 10*3/uL 1.09-3.23 L = 731-0) MONO x10^3 (test code 0.30 10*3/uL 0.36-1.02 L = 742-7) EOS x10^3 (test code = 0.07 10*3/uL 0.06-0.53 711-2) BASO x10^3 (test code 0.01-0.09 = 704-7) Lab Interpretation Abnormal (test code = 28778-3) [facility] GLUCOSE (AUTOMATED)2021-12-28 00:57:50 Test Item Value Reference Range Interpretation Comments POCT GLU (test code = 3491279338) 146 mg/dL 70-110 H Lab Interpretation (test code = Abnormal 77371-1) [facility]2021-12-27 21:58:17 Test Item Value Reference Range Interpretation Comments POCT GLU (test code = 3976859384) 125 mg/dL 70-110 H Lab Interpretation (test code = Abnormal 08796-8) [facility] GLUCOSE (AUTOMATED)2021-12-27 16:47:36 Test Item Value Reference Range Interpretation Comments POCT GLU (test code = 5207965257) 121 mg/dL 70-110 H Lab Interpretation (test code = Abnormal 34310-8) [facility] 12:53:58 Test Item Value Reference Range Interpretation Comments POCT GLU (test code = 7330527978) 114 mg/dL 70-110 H Lab Interpretation (test code = Abnormal 37458-7) [facility] GLUCOSE (AUTOMATED)2021-12-27 01:17:27 Test Item Value Reference Range Interpretation Comments POCT GLU (test code = 7507073601) 184 mg/dL 70-110 H Lab Interpretation (test code = Abnormal 20224-4) [facility] 21:25:07 Test Item Value Reference Range Interpretation Comments POCT GLU (test code = 1809708288) 151 mg/dL 70-110 H Lab Interpretation (test code = Abnormal 36198-5) [facility]21-[facility]-26 17:40:52 Test Item Value Reference Range Interpretation Comments POCT GLU (test code = 9928585088) 148 mg/dL 70-110 H Lab Interpretation (test code = Abnormal 47669-3) [facility]2021-12-26 12:54:00 Test Item Value Reference Range Interpretation Comments POCT GLU (test code = 5176579435) 150 mg/dL 70-110 H Lab Interpretation (test code = Abnormal 93398-3) [facility] 10:22:39 Test Item Value Reference Range Interpretation Comments POCT GLU (test code = 2703399784) 150 mg/dL 70-110 H Lab Interpretation (test code = Abnormal 71814-2) [facility]21-12-26 01:21:28 Test Item Value Reference Range Interpretation Comments POCT GLU (test code = 0574754752) 136 mg/dL 70-110 H Lab Interpretation (test code = Abnormal 63765-4) [facility] METABOLIC PANEL (NA, K, CL, CO2, GLUCOSE, BUN, CREATININE, CA)2021-12-14 22:24:31 Test Item Value Reference Range Interpretation Comments NA (test code = 135 mmol/L 135-145 7626403316) K (test code = 5.5 mmol/L 3.5-5 H 4232291364) CL (test code = 105 mmol/L 98-108 8137216264) CO2 TOTAL (test code = 21 mmol/L 23-31 L 7422920886) AGAP (test code = 2-16 2972697039) BUN (test code = 44 mg/dL 7-23 H 5696146915) GLUCOSE (test code = 164 mg/dL 70-110 H 2736658040) CREATININE (test code = 1.79 mg/dL 0.6-1.25 H 4801939223) CALCIUM (test code = 7.9 mg/dL 8.6-10.6 L 2337841008) eGFR (test code = mL/min/1.73m2 5315422245) RODRIGO (test code = RODRIGO) Association of [...] tests). Lab Interpretation Abnormal (test code = 95314-2) [facility] WITH [id number] 22:14:09 Test Item Value Reference Range Interpretation [...] (test code = 52.1 fL 38.5-51.6 H 46396-9) RDW-CV (test code = 20.0 % 12.1-15.4 H 788-0) PLT (test code = See_Comment [Automated 777-3) message] The sy stem which generated this result transmitted reference range : 150 - 328 10*3/ ?L. The reference r kelin was not used to interpret this result as normal/abnormal . MPV (test code = 9.8 fL 9.8-13 61550-2) NRBC/100 WBC (test See_Comment [Automat ed code = 4311562462) message] The system which generated this result transmitted reference range : 0.0 - 10.0 /100 WBCs. The refer ence range was not u sed to interpret th is result as normal/abnormal . NRBC x10^3 (test code See_Comment [Auto mated = 0822794569) message] The s ystem which generated this result transmitted reference range : 10*3/?L. The reference range was not used to interpret this result as normal/abnormal . GRAN MAT (NEUT) % 79.6 % (test code = 770-8) IMM GRAN % (test code 0.90 % = 6813341774) LYMPH % (test code = 10.6 % 736-9) MONO % (test code = 7.4 % 5905-5) EOS % (test code = 1.2 % 713-8) BASO % (test code = 0.3 % 706-2) GRAN MAT x10^3(ANC) 4.60 10*3/uL 1.99-6.95 (test code = 7761443154) IMM GRAN x10^3 (test 0.05 10*3/uL 0-0.06 code = 7378993241) LYMPH x10^3 (test code 0.61 10*3/uL 1.09-3.23 L = 731-0) MONO x10^3 (test code 0.43 10*3/uL 0.36-1.02 = 742-7) EOS x10^3 (test code = 0.07 10*3/uL 0.06-0.53 711-2) BASO x10^3 (test code 0.01-0.09 = 704-7) Lab Interpretation Abnormal (test code = 04886-9) [facility] GLUCOSE (AUTOMATED)2021-12-09 16:40:51 Test Item Value Reference Range Interpretation Comments POCT GLU (test code = 4130264225) 200 mg/dL 70-110 H Lab Interpretation (test code = Abnormal 50985-6) [facility] GLUCOSE (AUTOMATED)2021-12-09 12:53:24 Test Item Value Reference Range Interpretation Comments POCT GLU (test code = 1057455886) 197 mg/dL 70-110 H Lab Interpretation (test code = Abnormal 85817-8) [facility] GLUCOSE (AUTOMATED)2021-12-09 01:58:46 Test Item Value Reference Range Interpretation Comments POCT GLU (test code = 1415896511) 138 mg/dL 70-110 H Lab Interpretation (test code = Abnormal 78929-4) [facility] GLUCOSE (AUTOMATED)2021-12-08 22:02:54 Test Item Value Reference Range Interpretation Comments POCT GLU (test code = 1773796170) 123 mg/dL 70-110 H Lab Interpretation (test code = Abnormal 07253-0) [facility] GLUCOSE (AUTOMATED)2021-12-08 17:18:39 Test Item Value Reference Range Interpretation Comments POCT GLU (test code = 6350007471) 200 mg/dL 70-110 H Lab Interpretation (test code = Abnormal 13266-3) [facility] GLUCOSE (AUTOMATED)2021-12-08 14:20:51 Test Item Value Reference Range Interpretation Comments POCT GLU (test code = 0673105007) 189 mg/dL 70-110 H Lab Interpretation (test code = Abnormal 24009-5) [facility] GLUCOSE (AUTOMATED)2021-12-08 02:14:54 Test Item Value Reference Range Interpretation Comments POCT GLU (test code = 7810588382) 276 mg/dL 70-110 H Lab Interpretation (test code = Abnormal 26382-1) [facility]cosylated Hemoglobin (A1C)2021-12-08 00:06:25 Test Item Value Reference Range Interpretation Comments HGB A1C (test code = 6.6 % 4-5.7 H 4548-4) RODRIGO (test code = RODRIGO) Reference RangesNormal: <5.7%Prediabetes: 5.7 - 6.4%Diabetes: > 6.5% Lab Interpretation (test Abnormal code = 61827-7) [facility] HospitalMagnesium [id number] 23:59:59 Test Item Value Reference Range Interpretation Comments MAGNESIUM (test code = 9624740477) 2.6 mg/dL 1.7-2.4 H Lab Interpretation (test code = Abnormal 88573-9) [facility] HospitalLipid Panel (Total Cholesterol, Triglycerides, HDL) - [id number] 23:59:59 Test Item Value Reference Range Interpretation Comments CHOL (test code = 106 mg/dL 120-200 L 6940580567) HDL (test code = 20 mg/dL See_Comment L [Automated message] 7229944819) The system conXt generated this result transmit ros reference range : >=40. The refer ence range was not u sed to interpret th is result as normal/abnormal . HDLC RATIO (test code = See_Comment H [Au tomated message] 8864819753) The system conXt generated this result transmit ros reference range : <=5.0. The refe rence range was not u sed to interpret th is result as normal/abnormal . TRIG (test code = 86 mg/dL 30-170 8054450924) LDL CHOL (test code = 69 mg/dL See_Comment [Auto mated message] 40938-8) The system conXt generated this result transmit ros reference range : <=160. The refe rence range was not u sed to interpret th is result as normal/abnormal . VLDL (test code = 17 mg/dL 5-60 7645335020) Lab Interpretation (test Abnormal code = 50029-9) [facility] HospitalPhosphorus [id number] 23:59:39 Test Item Value Reference Range Interpretation Comments PHOSPHORUS (test code = 1143849603) 4.9 mg/dL 2.5-5 Lab Interpretation (test code = Normal 02301-8) [facility] HospitalN-TERMINAL [id number] 21:09:22 Test Item Value Reference Range Interpretation Comments NT-proBNP (test code 1600 pg/mL See_Comment H [Autom ated = 8136239041) message] The system which generated this result transmitted reference range : <=125. The reference range was not used to interpret this result as normal/abnormal . RODRIGO (test code = RODRIGO) Biotin has been reported to cause a negative bias, interpret results relative to patient's use of biotin. Lab Interpretation Abnormal (test code = 62794-8) [facility] HospitalCreatine [id number] 19:56:54 Test Item Value Reference Range Interpretation Comments CK (test code = 9255456374) 28 U/L 33-194 L Lab Interpretation (test code = Abnormal 17361-7) [facility]COMP. METABOLIC PANEL (05760)2021-12-07 16:38:09 Test Item Value Reference Range Interpretation Comments NA (test code = 137 mmol/L 135-145 4529068890) K (test code = 5.4 mmol/L 3.5-5 H 8858297323) CL (test code = 106 mmol/L 98-108 7920121466) CO2 TOTAL (test code = 23 mmol/L 23-31 2305637969) AGAP (test code = 2-16 6050060388) BUN (test code = 49 mg/dL 7-23 H 5723403116) GLUCOSE (test code = 154 mg/dL 70-110 H 4477608985) CREATININE (test code = 2.34 mg/dL 0.6-1.25 H 6584148808) TOTAL BILI (test code = 0.6 mg/dL 0.1-1.9 6175987616) CALCIUM (test code = 8.0 mg/dL 8.6-10.6 L 9717191358) T PROTEIN (test code = 6.1 g/dL 6.3-8.2 L 8972165600) ALBUMIN (test code = 2.5 g/dL 3.5-5 L 1673342645) ALK PHOS (test code = 100 U/L 34-122 6065264080) ALTv (test code = 15 U/L 5-50 1742-6) AST(SGOT) (test code = 23 U/L 13-40 1604618768) eGFR (test code = mL/min/1.73m2 7932931563) RODRIGO (test code = RODRIGO) Association of [...] tests). Lab Interpretation Abnormal (test code = 10292-0) [facility]ACT[facility] THRMPLAS [id number] 16:37:12 Test Item Value Reference Range Interpretation Comments APTT Patient (test See_Comment [Automat ed code = 3173-2) message] The system which generated this result transmitted reference range : 23 - 38 Seconds . The reference range was not used to interpr et this result as normal/abnormal . RODRIGO (test code = RODRIGO) The [facility] patient population mean normal value for aPTT is 30 seconds. Lab Interpretation Normal (test code = 46406-3) [facility] HospitalPROTHROMBIN TIME / [id number] 16:35:10 Test Item Value Reference Range Interpretation [...] tions. Lab Interpretation (test Abnormal code = 98482-1) [facility] WITH [id number] 16:11:30 Test Item Value Reference Range Interpretation [...] (test code = 53.5 fL 38.5-51.6 H 45506-6) RDW-CV (test code = 20.5 % 12.1-15.4 H 788-0) PLT (test code = See_Comment [Automated 777-3) message] The sy stem which generated this result transmitted reference range : 150 - 328 10*3/ ?L. The reference r kelin was not used to interpret this result as normal/abnormal . MPV (test code = 10.0 fL 9.8-13 47172-2) NRBC/100 WBC (test See_Comment [Automat ed code = 4221413043) message] The system which generated this result transmitted reference range : 0.0 - 10.0 /100 WBCs. The refer ence range was not u sed to interpret th is result as normal/abnormal . NRBC x10^3 (test code See_Comment [Auto mated = 1311841752) message] The s ystem which generated this result transmitted reference range : 10*3/?L. The reference range was not used to interpret this result as normal/abnormal . GRAN MAT (NEUT) % 82.5 % (test code = 770-8) IMM GRAN % (test code 0.90 % = 3267446579) LYMPH % (test code = 7.8 % 736-9) MONO % (test code = 7.3 % 5905-5) EOS % (test code = 1.2 % 713-8) BASO % (test code = 0.3 % 706-2) GRAN MAT x10^3(ANC) 5.74 10*3/uL 1.99-6.95 (test code = 3844786515) IMM GRAN x10^3 (test 0.06 10*3/uL 0-0.06 code = 0506549330) LYMPH x10^3 (test code 0.54 10*3/uL 1.09-3.23 L = 731-0) MONO x10^3 (test code 0.51 10*3/uL 0.36-1.02 = 742-7) EOS x10^3 (test code = 0.08 10*3/uL 0.06-0.53 711-2) BASO x10^3 (test code 0.01-0.09 = 704-7) Lab Interpretation Abnormal (test code = 27670-2) [facility]"
[2022-08-23 13:43] LABS: Specific Gravity 1.011 (1.005-1.030); Urine Bilirubin NEGATIVE (Negative); Urine Blood Negative (Negative); Urine Clarity Clear (Clear); Urine Color Light-Yellow (Yellow); Urine Glucose NEGATIVE (Negative); Urine Protein NEGATIVE (Negative); Urine Urobilinogen Normal (Normal)
[2022-08-23 13:47] LABS: Absolute Lymphocytes (CBC) 0.5 K/uL (0.7-4.9); Hematocrit 36.4 % (39.6-49.0); Lymphocytes % 11.8 % (15.3-44.8); MCV 84.6 fL (80-100); MPV 7.2 fL (7.6-11.3); Protime INR 1.09
[2022-08-23 13:57] LABS: Albumin 2.6 g/dL (3.4-5.0); Bilirubin Total 0.4 mg/dL (0.2-1.0); Potassium 4.6 mEq/L (3.5-5.1); Protein, Total 6.7 g/dL (6.4-8.2)
--- NOTE | 2022-08-23 14:22 | EDPHYS ---
Physician Documentation [facility] Name: Mc Willingham Age: 67 yrs Sex: Male : 1955 Arrival Date: 08/23/2022 Time: 13:03 Bed 26 Private MD: ED Physician Pedro Tran HPI: 08/23 13:13 The patient presents with abdominal pain abdominal distention that is diffuse. Patient primitivo is a 67-year-old known cirrhotic here for large-volume paracentesis. Patient states that he is gradually started getting distended since his last tap which was approximately 1 month ago patient with mild to moderate discomfort secondary to distention. Some dyspnea on exertion and also is unable to lay flat. Denies any shortness of breath exertional chest pain fever review of systems otherwise negative.. Historical: - Allergies: 13:15 No Known Allergies; ld1 - Home Meds: 13:15 spironolactone 25 mg Oral tablet 1 tab daily [Active]; furosemide 40 mg Oral tablet 1 ld1 tab 2 times per day [Active]; - PMHx: 13:15 cirrhosis of liver; diabetes mellitus; Hypertensive disorder; ld1 - Immunization history:: Adult Immunizations up to date, Client reports receiving the 2nd dose of the Covid vaccine. - Social history:: Smoking status: Patient denies any tobacco usage or history of. Patient/guardian denies using alcohol. ROS: 13:13 All other systems are negative. jr11 Exam: 13:13 Constitutional: appears chronically ill Head/Face: Normocephalic, atraumatic. Eyes: jr11 Extra-ocular motions intact. Lids and lashes normal. Conjunctiva and sclera are non-icteric and not injected. Cornea within normal limits. Periorbital areas with no swelling, redness, or edema. Neck: Trachea midline, no thyromegaly or masses palpated, and no cervical lymphadenopathy. Supple, full range of motion without nuchal rigidity, or vertebral point tenderness. No Meningismus. Chest/axilla: Normal chest wall appearance and motion. Nontender with no deformity. No lesions are appreciated. Abdomen/GI: massive ascites no peritonitis Skin: Warm, dry with normal turgor. Normal color with no rashes, no lesions, and no evidence of cellulitis. MS/ Extremity: Pulses equal, no cyanosis. Neurovascular intact. Full, normal range of motion. Neuro: Awake and alert, GCS 15, oriented to person, place, time, and situation. No gross motor or sensory deficits. Vital Signs: 13:14 BP 140 / 87; Pulse 79; Resp 18; Temp 98.3(TE); Pulse Ox 100% on R/A; Weight 76 kg; ld1 Height 5 ft. 8 in. ; Pain 8/10; 14:08 BP 138 / 91; Pulse 69; Resp 18; Pulse Ox 97% on R/A; nj1 14:57 BP 157 / 86; Pulse 76; Resp 18; Pulse Ox 98% ; nj1 13:14 Body Mass Index 25.48 (76.00 kg, 172.72 cm) ld1 13:14 Pain Scale: Adult ld1 MDM: 13:11 Patient medically screened. jr11 13:13 Differential diagnosis: non-specific abd pain, massive ascites. Data reviewed: vital 11 signs, nurses notes. 14:19 ED course: Patient required/large-volume paracentesis, offered to remove 3-4, patient's jr11 would rather wait till tomorrow at 8 AM, radiology will do large-volume paracentesis at 8. Confirm with Dr. Ordonez.. 08/23 13:06 Order name: CBC with Diff; Complete Time: 13:53 ld1 08/23 13:06 Order name: CMP; Complete Time: 14:04 ld1 08/23 13:06 Order name: Lipase; Complete Time: 14:04 ld1 08/23 13:06 Order name: Urinalysis w/ reflexes; Complete Time: 13:53 ld1 08/23 13:11 Order name: PT-INR jr11 08/23 14:59 Order name: LAB Add On eb 08/23 15:01 Order name: PTT, Activated Partial Thromb EDMS 08/23 13:06 Order name: IV Saline Lock; Complete Time: 13:43 ld1 08/23 13:06 Order name: Labs collected and sent; Complete Time: 13:43 ld1 Administered Medications: No medications were administered Disposition Summary: 08/23/22 14:21 Discharge Ordered Location: Home jr Condition: Fair jr11 Diagnosis - Alcoholic cirrhosis of liver with ascites jr11 Discharge Instructions: - Discharge Summary Sheet jr11 - Ascites jr11 - Cirrhosis jr11 Forms: - Medication Reconciliation Form jr11 - Thank You Letter jr11 - Antibiotic Education jr11 - Prescription Opioid Use jr11 Signatures: Dispatcher [employer] Yola Coppola RN RN ld1 Pedro Tran MD MD jr11
--- NOTE | 2022-08-23 14:22 | ER ---
Nurse's Notes [facility] Name: Mc Willingham Age: 67 yrs Sex: Male : 1955 Arrival Date: 08/23/2022 Time: 13:03 Bed 26 Private MD: Diagnosis: Alcoholic cirrhosis of liver with ascites Presentation: 08/23 13:14 Chief complaint: Patient states: ABD pain X 3 days. Reports 1 month since last time ld1 fluid was drained from abdomen. Coronavirus screen: At this time, the client does not indicate any symptoms associated with coronavirus-19. Ebola Screen: No symptoms or risks identified at this time. Initial Sepsis Screen: Does the patient meet any 2 criteria? No. Patient's initial sepsis screen is negative. Does the patient have a suspected source of infection? No. Patient's initial sepsis screen is negative. Risk Assessment: Do you want to hurt yourself or someone else? Patient reports no desire to harm self or others. Onset of symptoms was August 23, 2022. 13:14 Method Of Arrival: Ambulatory ld1 13:14 Acuity: POPPY 3 ld1 Triage Assessment: 13:15 General: Appears in no apparent distress. comfortable, Behavior is calm, cooperative, ld1 appropriate for age. Pain: Complains of pain in abdomen Pain does not radiate. Pain currently is 9 out of 10 on a pain scale. Quality of pain is described as throbbing, Pain began suddenly. EENT: No signs and/or symptoms were reported regarding the EENT system. Neuro: Level of Consciousness is awake, alert, obeys commands, Oriented to person, place, time, situation, Appropriate for age. Cardiovascular: Capillary refill < 3 seconds Patient's skin is warm and dry. Respiratory: Airway is patent Respiratory effort is even, unlabored. GI: Abdomen is round distended, Reports lower abdominal pain, upper abdominal pain. : No signs and/or symptoms were reported regarding the genitourinary system. Derm: No signs and/or symptoms reported regarding the dermatologic system. Musculoskeletal: No signs and/or symptoms reported regarding the musculoskeletal system. Historical: - Allergies: 13:15 No Known Allergies; ld1 - Home Meds: 13:15 spironolactone 25 mg Oral tablet 1 tab daily [Active]; furosemide 40 mg Oral tablet 1 ld1 tab 2 times per day [Active]; - PMHx: 13:15 cirrhosis of liver; diabetes mellitus; Hypertensive disorder; ld1 - Immunization history:: Adult Immunizations up to date, Client reports receiving the 2nd dose of the Covid vaccine. - Social history:: Smoking status: Patient denies any tobacco usage or history of. Patient/guardian denies using alcohol. Screenin:[facility] ED Fall Risk Assessment (Adult) History of falling in the last 3 months, nj1 including since admission No falls in past 3 months (0 pts) Confusion or Disorientation No (0 pts) Intoxicated or Sedated No (0 pts) Impaired Gait No (0 pts) Mobility Assist Device Used No (0 pt) Altered Elimination No (0 pt) Score/Fall Risk Level 0 - 2 = Low Risk Oriented to surroundings, Maintained a safe environment, Hourly rounding (assess needs \T\ fall precautionary measures) done. Abuse screen: Denies threats or abuse. Denies injuries from another. Nutritional screening: No deficits noted. Tuberculosis screening: No symptoms or risk factors identified. Assessment: 13:30 Reassessment: See triage assessment. nj1 14:57 Reassessment: Patient appears in no apparent distress at this time. Patient and/or nj1 family updated on plan of care and expected duration. Pain level reassessed. Patient is alert, oriented x 3, equal unlabored respirations, skin warm/dry/pink. Vital Signs: 13:14 BP 140 / 87; Pulse 79; Resp 18; Temp 98.3(TE); Pulse Ox 100% on R/A; Weight 76 kg; ld1 Height 5 ft. 8 in. ; Pain 8/10; 14:08 BP 138 / 91; Pulse 69; Resp 18; Pulse Ox 97% on R/A; nj1 14:57 BP 157 / 86; Pulse 76; Resp 18; Pulse Ox 98% ; nj1 13:14 Body Mass Index 25.48 (76.00 kg, 172.72 cm) ld1 13:14 Pain Scale: Adult ld1 ED Course: 13:04 Patient arrived in ED. mr 13:07 Pedro Tran MD is Attending Physician. jr11 13:09 Alice Novak, ALISSON is Primary Nurse. nj1 13:15 Triage completed. ld1 13:15 Arm band placed on right wrist. ld1 13:30 Patient has correct armband on for positive identification. Bed in low position. Call nj1 light in reach. Adult w/ patient. 13:30 Inserted saline lock: 20 gauge in right wrist, using aseptic technique. Blood collected.nj1 15:10 No provider procedures requiring assistance completed. IV discontinued, intact, nj1 bleeding controlled. Administered Medications: No medications were administered Medication: 15:10 VIS not applicable for this client. nj1 Outcome: 14:21 Discharge ordered by . jr11 15:10 Discharged to home ambulatory, with friend. nj1 15:10 Condition: stable 15:10 Discharge instructions given to patient, friend, Instructed on discharge instructions, follow up and referral plans. Demonstrated understanding of instructions, follow-up care. 15:18 Patient left the ED. nj1 Signatures: Noelle Whittington Lauren, RN RN ld1 Pedro Tran MD MD jr11 Alice Novak RN RN nj1
[2022-08-23 16:43] VITALS: TEMP 98.3
[2022-08-23 16:46] VITALS: BP 157/86; O2SAT 98
== END 2022-08-23 15:18 | disposition home or self-care (01) ==
LOC: ER 13:03
DX: K70.31 Alcoholic cirrhosis of liver with ascites (principal)
CPT/HCPCS: 36415; 80053; 81003; 83690; 85025; 85610; 85730; 99283

== ENCOUNTER 2022-08-24 07:33 | Emergency (ER) | payer SELFPAY ==
--- OUTSIDE RECORDS SUMMARY | 2022-08-24 07:41 | XMS REPORT | Continuity of Care Document ---
:1955 Author Organization [facility] t Address [address] [place] [address] [address] [place] [address] Care Team Providers Name Role Phone SAIRA NAVARRETE Kobi Primary Care Physician Unavailable LEILA CHAPMAN Attending Clinician Unavailable MIKE COPPOLA Attending Clinician Unavailable Mike Pulido Attending Clinician Leila Chapman MD Attending Clinician Doctor Unassigned, [place] Attending Clinician Unavailable JOSÉ MIGUEL HUMPHRIES Attending [...] Policy Number Effective Date Expiration Date S [facility] [place] PEND[place] 2022 PENDING 00:00:00 Problems Condition Condition Condition Status Onset Resolution Last Treating Co mments Source Name Details Category Date Date Treatment Clinician Date Chronic Chronic Disease Active Univers hepatitis hepatitis 3-30 [place]y of C without [place] hepatic hepatic 00 [facility] Branch Stage 4 Stage 4 Disease Active [...] History SDOH Social Unive rsity of Connections [facility] Med ical Together Branch History SDOH Social Unive rsity of Connections [facility] Medical Branch History SDOH Social Unive rsity of Connections [place] [facility] Membership Branch History SDOH Social Unive rsity of Connections [place] [facility] Meetings Branch History of tobacco Cigarette Smoker University of use [facility] Branch Exposure to 2022-05-26 2022-06-05 Not sure University of SARS-CoV-2 (event) 00:00:00 06:46:00 [facility] Branch Alcohol intake 2022-06-05 2022-06-05 Current drinker [...] University o f Physical Activity 00:00:00 00:00:00 [facility] edical DPW Branch History SDMN 2022-04-11 2022-04-11 0 University o f Physical Activity 00:00:00 00:00:00 [facility] edical MPS Branch History SDOH 2022-04-11 2022-04-11 5 University o f Financial 00:00:00 00:00:00 [place] [facility] History SDMN Food 2022-04-11 2022-04-11 1 Univers ity of Worry 00:00:00 00:00:00 [place] [facility] History SDOH Food 2022-04-11 2022-04-11 1 Univers ity of Scarcity 00:00:00 00:00:00 [place] [facility] History [facility] 2022-04-11 2022-04-11 2 University o f Transport Med 00:00:00 00:00:00 [place] Medic al Branch History [facility] 2022-04-11 2022-04-11 2 University o f Transport Non-Med 00:00:00 [facility]:00:00 [facility] Tobacco use and 2021-12-07 2021-12-07 Smokeless Universit y of exposure 00:00:00 00:00:00 tobacco non-user [facility] dical Branch Education 2021-12-07 2021-12-07 14 University 00:00:00 00:00:00 [facility] Tobacco Comment 2021-12-07 2021-12-07 Quit 3-4 years Unive rsity of 00:00:00 00:00:00 [facility] Sex [birth year] At [birth year] Universit y of 00:00:00 00:00:00 [facility] Smoking Status Start Date Stop Date Source Tobacco smoking University [facility] xa consumption unknown Medical Bran ch [...] by ity of tablet 14:07: mouth in [place] [address] the Medical morning Branch and 1 tablet [...] by ity of tablet 14:07: mouth in [place] [address] the Medical morning Branch and 1 tablet in the evening. furosemide 2023-0 Yes 40mg Take 1 Unive rs 40 mg 3-30 tablet by ity of tablet 00:00: mouth [place] 00 every Medical morning Branch and evening. lactulose 2023-0 Yes [id number] 30mL Take 30 mL Univers 10 gram/15 3-30 by mouth ity o f mL solution 00:00: in the [facility] [place] [facility] morning. Medical Branch sulfamethox 2023-0 Yes [id number] 1{tbl} Take 1 Univers azole-trime 3-30 tablet by ity of thoprim 00:00: mouth in [place] [facility] the Medical 400-80 mg morning. [...] morning Branch and evening. lactulose 2023-0 Yes [id number] 30mL Take 30 mL Univers 10 gram/15 3-30 by mouth ity o f mL solution 00:00: in the [facility] s 00 morning. Medical Branch sulfamethox 2023-0 Yes [id number] 1{tbl} Take 1 Univers azole-trime 3-30 tablet [...] morning Branch and evening. lactulose 2022-0 Yes [id number] 30mL Take 30 mL Univers 10 gram/15 3-30 by mouth ity o f mL solution 00:00: in the [facility] morning. Medical Branch sulfamethox 2022-0 Yes [id number] 1{tbl} Take 1 Univers azole-trime 3-30 tablet [...] morning Branch and evening. lactulose 2022-0 Yes [id number] 30mL Take 30 mL Univers 10 gram/15 3-30 by mouth ity o f mL solution 00:00: in the [facility] morning. Medical Branch sulfamethox 2022-0 Yes [id number] 1{tbl} Take 1 Univers azole-trime 3-30 tablet by ity of thoprim 00:00: mouth in [place] [facility] the Medical 400-80 mg morning. [...] of ascitic fluid removed lactulose 2022-0 Yes [id number] 30mL Take 30 mL Univers 10 gram/15 3-24 by mouth ity o f mL oral 00:00: in the [place] solution 00 morning. Medical Branch lactulose 2022-0 Yes [id number] 30mL Take 30 mL Univers 10 gram/15 3-24 by mouth ity o f mL oral 00:00: in the [place] solution 00 morning. Medical Branch lactulose 2022-0 Yes [id number] 30mL Take 30 mL Univers 10 gram/15 3-24 by mouth ity o f mL oral 00:00: in the [place] solution 00 morning. Medical Branch lactulose 2022-0 2023- No [id number] 30mL Take 30 mL Univers 10 gram/15 3-24 03-30 by mouth ity of mL oral 00:00: 00:00 in the [place] solution 00 :00 morning. Medical Branch lactulose 2022-0 2022- No [id number] 30mL Take 30 mL Univers 10 gram/15 05-3130 by mouth ity of mL oral 00:00: 00:00 in the [place] solution 00 :00 morning. Medical Branch lactulose 2022-0 2022- No [id number] 30mL Take 30 mL Univers 10 gram/15 05-3130 by mouth ity of mL oral 00:00: 00:00 in the [place] solution 00 :00 morning. Medical Branch pantoprazol 2022-0 Yes 40mg Take 40 mg Univers e 40 mg EC 2-02 by mouth ity o f tablet 17:45: in the [place] [address] morning Medical and 40 mg Branch in the evening. pantoprazol 2023-0 Yes 40mg Take 40 mg Univers e 40 mg EC 2-02 by mouth ity o f tablet 17:45: in the [place] [address] morning Medical and 40 mg Branch in the evening. pantoprazol 3-0 Yes 40mg Take 40 mg Univers e 40 mg EC 2-02 by mouth ity o f tablet 17:45: in the [place] [address] morning Medical and 40 mg Branch in the evening. pantoprazol 3-0 Yes 40mg Take 40 mg Univers e 40 mg EC 2-02 by mouth ity o f tablet 17:45: in the [place] [address] morning Medical and 40 mg Branch in [...] ity of (ALDACTONE) 15:02: 00:00 in the [facility] [place] [facility] as 25 mg 42 :00 morning. Medical [...] Routine, Pain (scale 1-3) sulfamethox 2022- No [id number] 1{tbl} Take 1 Univers azole-trime 04-11 0305 [id number] tablet by i ty of thoprim 00:00: 05:59 mouth in [place] (BACTRIM 00 :00 the Medical DS) 800-160 morning Branc h mg per for 30 tablet days. furosemide 2022-0 2022- No [id number] 40mg Take 1 Univers 40 mg 04-11 tablet by ity of tablet 00:00: 05:59 mouth [place] 00 :00 every Medical morning Branch and evening for 30 days. spironolact 2022-0 2022- No [id number] 200mg Take 2 Univers one 04-11 47550 tablets by ity of (ALDACTONE) 00:00: 05:59 [...] by mouth ity of tablet 13:09: every [place] [address] morning Medical and Branch evening. furosemide 2021- Yes 40mg Take 40 mg U nivers 40 mg 0-21 by mouth ity of tablet 13:09: every [place] [address] morning Medical and Branch evening. furosemide 2021- Yes 40mg Take 40 mg U nivers 40 mg 0-21 by mouth ity of tablet 13:09: every [place] [address] morning Medical and Branch evening. furosemide 2021- Yes 40mg Take 40 mg U nivers 40 mg 0-21 by mouth ity of tablet 13:09: every [place] [address] morning Medical and Branch evening. furosemide 2021- Yes 40mg Take 40 mg U nivers 40 mg 0-21 by mouth ity of tablet 13:09: every [place] [address] morning Medical and Branch evening. furosemide 2021- Yes 40mg Take 40 mg U nivers 40 mg 0-21 by mouth ity of tablet 13:09: every [place] [address] morning Medical and Branch evening. furosemide 2021- Yes 40mg Take 40 mg U nivers 40 mg 0-21 by mouth ity of tablet 13:09: every [place] [address] morning Medical and Branch evening. furosemide 2021- Yes 40mg Take 40 mg U nivers 40 mg 0-21 by mouth ity of tablet 13:09: every [place] [address] morning Medical and Branch evening. furosemide 2021- Yes 40mg Take 40 mg U nivers 40 mg 0-21 by mouth ity of tablet 13:09: every [place] [address] morning Medical and Branch evening. furosemide 2021- Yes 40mg Take 40 mg U nivers 40 mg 0-21 by mouth ity of tablet 13:09: every [place] [address] morning Medical and Branch evening. furosemide 2021- Yes 40mg Take 40 mg U nivers 40 mg 0-21 by mouth ity of tablet 13:09: every [place] [address] morning Medical and Branch evening. pantoprazol 2021- Yes 40mg Take 40 mg Univers e 40 mg EC 0-21 by mouth ity o f tablet 13:09: in the [place] [address] morning Medical and 40 mg Branch in the evening. pantoprazol 2021-1 Yes 40mg Take 40 mg Univers e 40 mg EC 0-21 by mouth ity o f tablet 13:09: in the [place] [address] morning Medical and 40 mg Branch in the evening. pantoprazol 2022-1 Yes 40mg Take 40 mg Univers e 40 mg EC 0-21 by mouth ity o f tablet 13:09: in the [place] [address] morning Medical and 40 mg Branch in the evening. pantoprazol 2-1 Yes 40mg Take 40 mg Univers e 40 mg EC 0-21 by mouth ity o f tablet 13:09: in the [place] [address] morning Medical and 40 mg Branch in the evening. pantoprazol 2021-03 Yes 40mg Take 40 mg Univers e 40 mg EC 0-21 by mouth ity o f tablet 13:09: in the [place] [address] morning Medical and 40 mg Branch in the evening. pantoprazol 2021-03 Yes 40mg Take 40 mg Univers e 40 mg EC 0-21 by mouth ity o f tablet 13:09: in the [place] [address] morning Medical and 40 mg Branch in the evening. pantoprazol 2021-03 Yes 40mg Take 40 mg Univers e 40 mg EC 0-21 by mouth ity o f tablet 13:09: in the [place] [address] morning Medical and 40 mg Branch in the evening. pantoprazol 2021-03 Yes 40mg Take 40 mg Univers e 40 mg EC 0-21 by mouth ity o f tablet 13:09: in the [place] [address] morning Medical and 40 mg Branch in the evening. pantoprazol 2021-03 Yes 40mg Take 40 mg Univers e 40 mg EC 0-21 by mouth ity o f tablet 13:09: in the [place] [address] morning Medical and 40 mg Branch in the evening. pantoprazol 2021-03 Yes 40mg Take 40 mg Univers e 40 mg EC 0-21 by mouth ity o f tablet 13:09: in the [place] [address] morning Medical and 40 mg Branch in the evening. pantoprazol 2021-03 Yes 40mg Take 40 mg Univers e 40 mg EC 0-21 by mouth ity o f tablet 13:09: in the [place] [address] morning Medical and 40 mg Branch in the evening. albumin 2021-03 202- No [id number] 50g 50 g, IV Univers (ALBUMINAR 0-21 [...] 01:00: First dose [place] mg 00 on [facility] 12/25/21 Branch at 2000, Until Discontinu [...] First dose Medical (HumaLOG) + on Fri Bee Fsbg 12/25/21 Testing at 1700, Until Discontinu ed, Routine enoxaparin 2021-03 Yes 30mg 30 mg, Unive rs (LOVENOX) 0-18 Subcutaneo ity of injection 22:00: [place], [place]ILY, [place] 30 mg 00 First dose Medical on [facility] 12/25/21 at 1700, Until Discontinu ed, Routine glucagon 2021-03 Yes 1mg 1 mg, Univers (GLUCAGEN 0-18 Intramuscu ity of DIAGNOSTIC 21:33: lar, PRN, [place] KIT) 19 Starting Medical injection 1 on [facility] mg 12/25/21 at 1633, Until Discontinu ed, NAYAN, Blood Glucose < or = 70 mg/dL and patient is unable to swallow or has mental changes. dextrose 50 2021-03 Yes 25mL 25 mL, Univ ers % in water 0-18 Slow IV ity of (D50W) 21:33: Push, PRN, [place] injection 19 Starting Medica l 25 mL on [facility] 12/25/21 at 1633, Until Discontinu ed, NAYAN, Blood Glucose < or = 70 mg/dL and patient is unable to swallow or has mental status changes. ondansetron 2021-03 Yes 4mg 4 mg, Slow Univers (ZOFRAN 0-18 IV Push, ity of (PF)) 21:33: Q6HPRN, [place] injection 4 11 Starting Medi rosario mg on [facility] Branch 12/25/21 at 1633, Until Discontinu ed, Routine, Nausea and Vomiting (N/V) acetaminoph 2021-03 Yes 650mg 650 mg, Un piedad en 0-18 Oral, ity of (TYLENOL) 21:32: Q6HPRN, [place] tablet 650 53 Starting Medic al mg on [facility] Branch 12/25/21 at 1632, Until Discontinu ed, Routine, Pain (scale 1-3) pantoprazol 2021-03 Yes 40mg Take 40 mg Univers e 40 mg EC 0-02 by mouth ity o f tablet 16:36: in the [place] 06 morning Medical and 40 mg Branch in the evening. furosemide 2021-03 Yes 40mg Take 40 mg U nivers 40 mg 0-02 by mouth ity of tablet 16:36: every [place] [address] morning Medical and Branch evening. pantoprazol 2021-03 Yes 40mg Take 40 mg Univers e 40 mg EC 0-02 by mouth ity o f tablet 16:36: in the [place] [address] morning Medical and 40 mg Branch in the evening. furosemide 2021-03 Yes 40mg Take 40 mg U nivers 40 mg 0-02 by mouth ity of tablet 16:36: every [place] [address] morning Medical and Branch evening. spironolact 2021-03- No 25mg Take 25 mg Univers one 25 mg 0-02 1002 by mouth ity o f tablet 13:32: 00:00 in the [place] 31 :00 morning Medical and 25 mg Branch in the evening. spironolact 2021-03- No [id number] 25mg Take 1 Univers one 25 mg 0-02 11-02 tablet by ity of tablet 00:00: 04:59 mouth in [place] 00 :00 the Medical morning Branch for 30 days. spironolact 2021-03- No [id number] 25mg Take 1 Univers one 25 mg 0-02 11-02 tablet by ity of tablet 00:00: 04:59 mouth in [place] 00 :00 the Medical morning Branch for 30 days. spironolact 2021-03- No [id number] 25mg Take 1 Univers one 25 mg 0-02 11-02 tablet by ity of tablet 00:00: 04:59 mouth in [place] 00 :00 the Medical morning Branch for 30 days. spironolact 2021-03- No [id number] 25mg Take 1 Univers one 25 mg 001-09 tablet by ity of tablet 00:00: 04:59 mouth in [place] 00 :00 the [facility] for 30 days. midodrine 2021-03 Yes 5mg 5 mg, Univers (PROAMATINE 0-01 Oral, TID, it y of ) tablet 5 19:00: First dose [place] mg 00 on [facility] 12/08/21 at Branch 1400, Until Discontinu ed, Routine foLIC acid 2021-03- No 1mg 1 mg, Unive rs (FOLATE) 0-12-08 Oral, ity of tablet 1 mg 16:15: 17:09 ONCE, 1 [place] 00 :[place] dose, On [facility] 12/08/21 at 1115, Routine thiamine 2021-03 Yes 100mg 100 mg, Unive rs (VITAMIN 0-01 Oral, ity of B1) tablet 15:30: DAILY, [place] 100 mg 00 First dose Medical on [facility] 12/08/21 at 1030, Until Discontinu ed, Routine furosemide 2021-03 Yes 40mg 40 mg, Unive rs (LASIX) 0-01 Oral, ity of tablet 40 14:00: DAILY, [place] mg 00 First dose Medical on [facility] 12/08/21 at 0900, Until Discontinu ed, Routine spironolact 2021-03- No 100mg 100 mg, U nivers one 0-12-08 Oral, ity of (ALDACTONE) 14:00: 15:45 DAILY, [place] tablet 100 00 :15 First dose Med ical mg on [facility] 12/08/21 at 0900, Until Discontinu ed, Routine traMADoL 2021-03 Yes 50mg 50 mg, Univers (ULTRAM) 0-01 Oral, ity of tablet 50 10:49: Q6HPRN, [place] mg 22 Starting Medical on [facility] 12/08/21 at 0549, Until Discontinu ed, Routine, Pain (scale 4-6) heparin 2021-03 Yes 5000U 5,000 Univers (porcine) 0-01 Units, ity of injection 03:00: Subcutaneo [place] 5,000 Units 00 us, Q8H, [facility] First dose Branch on 12/07/21 at 2200, Until Discontinu ed, Routine Sliding 2021-03 Yes Subcutaneo Univ ers Scale 0-01 us, TID ity of Insulin - 02:00: MEALS+HS, [place] Lispro 00 First dose Medical (HumaLOG) + on Fri Branch Fsbg 12/07/21 at Testing 2100, Until Discontinu ed, Routine albumin 2021- No [id number] 25g 25 g, IV Univers (ALBUMINAR 12-07 Infusion, ity of 25%) 25 % 20:15: 02:01 ONCE, 1 [place] injection 00 :00 dose, On Medica l 25 g Fri Branch 12/07/21 at 1515, 100 mL
Marge cation: HEPATORENA L SYNDROME (DIAGNOSIS )
Comme nts: Dosin-8 g/L of ascitic fluid removed furosemide 2021- No [id number] 40mg 40 mg, Univers (LASIX) 12-07 Slow [...] 9-16 medication it y of 13:38: s [address] No known No No known Unive rs medications 8-11 medication it y of 11:47: s [address] No known No No known Unive rs medications 8-11 medication it y of 11:47: [address] No known No No known Unive rs medications 8-11 medication it y of 11:47: [address] Vital Signs Vital Name Observation Time [...] /min University of Arterial blood by [place] [employer] rosario Pulse oximetry Branch Body temperature 2022-08-12 [...] /min University of Arterial blood by [place] [employer] ro[employer]ario Pulse oximetry Branch Systolic blood 2022-06-05 [...] 100 /min University of Arterial blood by [facility] Pulse oximetry Branch Body temperature 2022-05-31 18:57:45 [...] 100 /min University of Arterial blood by [facility] Pulse oximetry Branch Body height 2022-04-11 02:52:00 [...] /min University of Arterial blood by [place] [employer] rosario Pulse oximetry Branch Body temperature 2022-03-27 [...] /min University of Arterial blood by [place] [employer] Pulse oximetry Branch Systolic blood 2022-02-27 [...] 99 /min University of Arterial blood by [facility] rosario Pulse oximetry Branch Body [...] 100 /min University of Arterial blood by [facility] Pulse oximetry Branch Body temperature 2022-01-30 16:57:00 [...] 99 /min University of Arterial blood by [facility] Pulse oximetry Branch Body weight 2022-01-16 17:42:00 [...] 98 /min University of Arterial blood by [facility] Pulse oximetry Branch Body weight 2022-01-12 23:58:00 [...] /min University of Arterial blood by [place] [employer]ario Pulse oximetry Branch Systolic blood 2021-12-28 [...] /min University of Arterial blood by [place] [employer]ario Pulse oximetry Branch Respiratory rate 2021-12-28 [...] 100 /min University of Arterial blood by [facility] rosario Pulse oximetry Branch Systolic [...] 95 /min University of Arterial blood by [facility] rosario Pulse oximetry Branch Body [...] 100 /min University of Arterial blood by [facility] rosario Pulse oximetry Branch Body [...] /min University of Arterial blood by [place] [employer] ro[employer]ario Pulse oximetry Branch Body temperature 2021-11-09 [...] 98 /min University of Arterial blood by [place] rosario Pulse oximetry Branch Procedures Procedure Date / Time Performing Clinician Source Performed [place] ABDOM PARACENTESIS 2022-08-12 16:58:16 Kev Nguyen [facility] DX/THER W/IMAGING [facility] GUIDANCE XR CHEST 1 VW 2022-08-12 15:57:01 Abdon [facility] LIPASE 2022-08-12 15:28:00 Abdon [facility] COMP. METABOLIC PANEL 2022-08-12 15:28:00 Abdon [facility] ([id number]) [facility] CBC WITH DIFF 2022-08-12 15:28:00 Abdon [facility] PROTHROMBIN TIME / INR 2022-08-12 15:28:00 Abdon, [facility] CONSENT/REFUSAL FOR 2022-08-12 15:02:09 Doctor Unassigned, No Un [facility] DIAGNOSIS AND TREATMENT Name [facility] ASSIGNMENT OF BENEFITS 2022-06-06 18:38:18 Doctor Unassigned, No [facility] LIPASE 2022-06-05 13:17:00 Rodney [facility] HEPATIC FUNCTION PANEL 2022-06-05 13:17:00 Rodney [facility] ([id number]) (ALB,T.PRO,BILI [facility] Branch T,BU/BC,ALT,AST,ALK PHOS) BASIC METABOLIC PANEL 2022-06-05 13:17:00 Rodney [facility] (NA, K, CL, CO2, Medical Branch GLUCOSE, BUN, CREATININE, CA) CBC WITH DIFF 2022-06-05 13:17:00 Rodney [facility] PROTHROMBIN TIME / INR 2022-06-05 13:17:00 Rodney [facility] ACTIVATED PARTIAL 2022-06-05 13:17:00 Rodney [facility] THRMPLAS [facility] CONSENT/REFUSAL FOR 2022-06-05 11:43:52 Doctor Unassigned, No [facility] DIAGNOSIS AND TREATMENT Name [facility] BODY FLUID DIRECT COUNT 2022-05-31 23:03:00 Mohr, [facility] HEPATIC FUNCTION PANEL 2022-05-31 21:22:00 Onur Jeremias [facility] ([id number]) (ALB,T.PRO,BILI Medical Branch T,BU/BC,ALT,AST,ALK PHOS) CBC WITH DIFF 2022-05-31 19:08:00 Onur [facility] BASIC METABOLIC PANEL 2022-05-31 19:00:00 Mohr, [facility] (NA, K, CL, CO2, [facility] Branch GLUCOSE, BUN, CREATININE, CA) PROTHROMBIN TIME / INR 2022-05-31 19:00:00 Onur Jeremias [facility] CONSENT/REFUSAL FOR 2022-05-31 18:40:37 Doctor Unassigned, No Un [facility] DIAGNOSIS AND TREATMENT Name Medical Bee BASIC METABOLIC PANEL 2022-04-11 22:15:00 Shantell Rivera [facility] (NA, K, CL, CO2, [facility] GLUCOSE, BUN, CREATININE, CA) BLOOD CULTURE SCREEN 2022-04-11 16:47:00 Rivera [facility] MAGNESIUM 2022-04-11 09:39:00 [facility] COMP. METABOLIC PANEL 2022-04-11 09:39:00 [facility] ([id number]) [facility] CBC WITH DIFF 2022-04-11 09:39:00 [facility] HCV ANTIBODY 2022-04-11 09:39:00 [facility] HEPATITIS C VIRUS (HCV) 2022-04-11 09:39:00 Edward [facility] [place] [facility] BY QUANTITATIVE NAAT [facility] T.PROTEIN BODY FLUID 2022-04-11 06:15:00 Eddie Doyle [facility] BODY FLUID DIRECT COUNT 2022-04-11 06:15:00 Eddie Doyle [facility] BODY FLUID (BACTEC 2022-04-11 06:15:00 Geeta Young [facility] BOTTLE) [facility] COMP. METABOLIC PANEL 2022-04-10 21:26:00 Bucky Gloria [facility] ([id number]) Medical Branch CBC WITH DIFF 2022-04-10 21:26:00 Bucky Gloria Steptoe o f [facility] GLYCOSYLATED HEMOGLOBIN 2022-04-10 21:26:[address] [facility] (A1C) Medical Bee PROTHROMBIN TIME / INR 2022-04-10 21:26:00 Bucky Gloria [facility] ACTIVATED PARTIAL 2022-04-10 21:26:00 Bucky Gloria [facility] THRMPLAS [facility] CONSENT/REFUSAL FOR 2022-04-10 19:58:33 Doctor Unassigned, No Un [facility] [place] DIAGNOSIS AND TREATMENT Name [facility] HOSPITAL ADMISSION 2022-04-10 06:01:00 Doctor Unassigned, No Uni versity [facility] [place] ABDOM PARACENTESIS 2022-03-27 20:57:39 Gini [facility] DX/THER W/IMAGING Medical Branch GUIDANCE COMP. METABOLIC PANEL 2022-03-27 18:56:00 Gini [facility] ([id number]) [facility] Branch CBC WITH DIFF 2022-03-27 18:56:00 Gini [facility] PROTHROMBIN TIME / INR 2022-03-27 18:56:00 Gini [place] [facility] [place] ABDOM PARACENTESIS 2022-03-12 18:32:33 [facility]ve [facility] DX/THER W IMAGING Medical Branch GUIDANCE CONSENT/REFUSAL FOR 2022-03-12 17:29:10 Doctor Unassigned, No Un [facility] [place] DIAGNOSIS AND TREATMENT [facility] Medical Branch [place] ABDOM PARACENTESIS 2022-02-27 21:29:57 Kev [facility] DX/THER W IMAGING Medical Branch GUIDANCE CONSENT/REFUSAL FOR 2022-02-27 21:02:37 Doctor Unassigned, No Un [facility] [place] DIAGNOSIS AND TREATMENT [facility] Medical Branch [place] ABDOM PARACENTESIS 2022-02-13 21:42:20 [facility]ev [facility] DX/THER W IMAGING Medical Branch GUIDANCE CONSENT/REFUSAL FOR 2022-02-13 21:08:22 Doctor Unassigned, No [facility] [place] [facility] Name Medical Branch [place] ABDOM PARACENTESIS 2022-01-30 19:16:37 Kev Nguyen [facility] DX/THER W IMAGING Medical Branch GUIDANCE CONSENT/REFUSAL FOR 2022-01-30 16:51:04 Doctor Unassigned, No [facility] [place] [facility] Name Medical Branch MI ABDOM PARACENTESIS 2022-01-16 19:17:58 Kev Nguyen [facility] DX/THER W IMAGING [facility] GUIDANCE CONSENT/REFUSAL FOR 2022-01-16 17:29:44 Doctor Unassigned, No [facility] [place] [facility] Name [facility] XR CHEST 1 VW 2022 01:47:22 Jaqui Romano [facility] COMP. METABOLIC PANEL 2022 01:19:00 Jaqui Romano [facility] ([id number]) [facility] CBC WITH DIFF 2022 01:19:00 Jaqui Romano [facility] PROTHROMBIN TIME / INR 2022 01:19:00 Jaqui Romano [facility] ACTIVATED PARTIAL 2022 01:19:00 Jaqui Romano [facility] CONSENT/REFUSAL FOR 2022-01-12 22:44:32 Doctor Unassigned, No [facility] [place] [facility] Name [facility] CONSENT/REFUSAL FOR 2022-01-12 20:00:19 Doctor Unassigned, No [facility] [place] [facility] Name [facility] POCT GLUCOSE (AUTOMATED) 2021-12-28 12:54:00 Augustin [facility] BASIC METABOLIC PANEL 2021-12-28 08:19:00 [facility] [place] (NA, K, CL, CO2, Medical Branch GLUCOSE, BUN, CREATININE, CA) CBC WITH DIFF 2021-12-28 08:19:00 Danielle Rothman [facility] BODY FLUID DIRECT COUNT 2021-12-28 01:21:00 Gee [facility] BODY FLUID 2021-12-28 01:21:00 Gee, [facility] CULTURE(AEROBIC/ANAEROBI [facility] C) POCT GLUCOSE (AUTOMATED) 2021-12-28 00:42:00 Augustin [facility] POCT GLUCOSE (AUTOMATED) 2021-12-27 21:53:00 Augustin [facility] POCT GLUCOSE (AUTOMATED) 2021-12-27 16:33:00 Augustin [facility] POCT GLUCOSE (AUTOMATED) 2021-12-27 12:29:00 Augustin [facility] BASIC METABOLIC PANEL 2021-12-27 09:27:00 Danielle Rothman [facility] (NA, K, CL, CO2, Medical Branch GLUCOSE, BUN, CREATININE, CA) CBC WITH DIFF 2021-12-27 09:27:00 Danielle Rothman [facility] POCT GLUCOSE (AUTOMATED) 2021-12-27 01:11:00 [facility] ([facility]OMATED) 2021-12-26 21:17:00 [facility] PO[facility] (AUTOMATED) 2021-12-26 16:48:00 [facility] POCT GLUCOSE (AUTOMATED) 2021-12-26 12:47:00 Ted [facility] LACTATE DEHYDROGENASE 2021-12-26 09:26:00 Ted [facility] MAGNESIUM 2021-12-26 09:26:00 Ted [facility] HEPATIC FUNCTION PANEL 2021-12-26 09:26:00 Ted [facility] ([id number]) (ALB,T.PRO,BILI Medical Branch T,BU/BC,ALT,AST,ALK PHOS) BASIC METABOLIC PANEL 2021-12-26 09:26:00 Ted [facility] (NA, K, CL, CO2, Medical Branch GLUCOSE, BUN, CREATININE, CA) CBC WITH DIFF 2021-12-26 09:26:00 Ted [facility] POCT GLUCOSE (AUTOMATED) 2021-12-26 00:44:00 [facility] POCT GLUCOSE (AUTOMATED) 2021-12-25 23:16:00 [facility] URINALYSIS 2021-12-25 15:12:00 Chilo Oliva [facility] XR CHEST 2 VW 2021-12-25 14:56:42 Chilo Oliva [facility] COMP. METABOLIC PANEL 2021-12-25 14:31:00 Chilo Oliva [facility] ([id number]) [facility] CBC WITH DIFF 2021-12-25 14:31:00 Chilo Oliva [facility] PROTHROMBIN TIME / INR 2021-12-25 14:31:00 Chilo Oliva [facility] ACTIVATED PARTIAL 2021-12-25 14:31:00 Chilo Oliva [facility] CONSENT/REFUSAL FOR 2021-12-25 13:31:05 Doctor Unassigned, No Un iversity [facility] DIAGNOSIS AND TREATMENT Name [facility] BASIC METABOLIC PANEL 2021-12-14 22:07:00 Mike Hoffman [facility] (NA, K, CL, CO2, Medical Branch GLUCOSE, BUN, CREATININE, CA) CBC WITH DIFF 2021-12-14 22:07:00 Mike Hoffman [facility] CONSENT/REFUSAL FOR 2021-12-14 19:51:33 Doctor Unassigned, No [facility] POCT GLUCOSE (AUTOMATED) 2021-12-09 16:37:00 Alisha Cha [facility] POCT GLUCOSE (AUTOMATED) 2021-12-09 12:50:00 Alisha Cha [facility] BASIC METABOLIC PANEL 2021-12-09 08:57:00 [facility] (NA, K, CL, CO2, Medical Branch GLUCOSE, BUN, CREATININE, CA) POCT GLUCOSE (AUTOMATED) 2021-12-09 01:54:00 Alisha Cha [facility] POCT GLUCOSE (AUTOMATED) 2021-12-08 21:56:00 Alisha [facility] POCT GLUCOSE (AUTOMATED) 2021-12-08 16:49:00 Alisha Cha [facility] POCT GLUCOSE (AUTOMATED) 2021-12-08 14:07:00 Alisha Cha [facility] PHOSPHORUS 2021-12-08 08:58:00 Dusty Josue [facility] URIC ACID 2021-12-08 08:58:00 Dusty Josue [facility] MAGNESIUM 2021-12-08 08:58:00 Dusty Josue [facility] AMMONIA, PLASMA 2021-12-08 08:58:00 Dusty Josue [facility] BASIC METABOLIC PANEL 2021-12-08 08:58:00 Danielle Rothman [facility] (NA, K, CL, CO2, Medical Bee GLUCOSE, BUN, CREATININE, CA) IRON PANEL 2021-12-08 08:58:00 Dusty Josue [facility] CBC WITH DIFF 2021-12-08 08:58:00 Danielle Rothman [facility] URINALYSIS 2021-12-08 02:26:[address] [facility] POTASSIUM, URINE RANDOM 2021-12-08 02:25:00 Willy [facility] SODIUM, URINE RANDOM 2021-12-08 02:25:00 Willy [facility] PROTEIN CREAT RATIO 2021-12-08 02:25:00 Willy, [facility] URINE RANDOM [facility] OSMOLALITY URINE 2021-12-08 02:23:00 Willy, [facility] POCT GLUCOSE (AUTOMATED) 2021-12-08 02:08:00 Alisha Cha [facility] [place] ABDOM PARACENTESIS 2021-12-07 22:45:00 Bucky Gloria [facility] DX/THER W IMAGING [facility] GUIDANCE PHOSPHORUS 2021-12-07 19:33:00 Danielle Rothman [facility] CREATINE KINASE 2021-12-07 [facility]:33[facility] MAGNESIUM 2021-12-07 19:33:00 Stephan Danielle [facility] LIPID PANEL 2021-12-07 19:33:00 Stephan [facility] ([id number])(TOTAL Medical Branch CHOLESTEROL, TRIGLYCERIDES, HDL) N-TERMINAL PRO-BNP 2021-12-07 19:33:[facility]OLIC PANEL 2021-12-07 16:02:00 Bucky Gloria [facility] ([id number]) [facility] CBC WITH DIFF 2021-12-07 16:02:00 Faizan [facility] GLYCOSYLATED HEMOGLOBIN 2021-12-07 16:02:00 Stephan [facility] (A1C) [facility] PROTHROMBIN TIME / INR 2021-12-07 16:02:00 Faizan Bucky [facility] ACTIVATED PARTIAL 2021-12-07 16:02:00 Faizan [facility] THRMPLAS [facility] CONSENT/REFUSAL FOR 2021-12-07 15:35:39 Doctor Unassigned, No [facility] [place] [facility] [place] ABDOM PARACENTESIS 2021-11-23 19:39:58 Jonna [facility] DX/THER W IMAGING [facility] GUIDANCE CONSENT/REFUSAL FOR 2021-11-23 18:36:31 Doctor Unassigned, No [facility] [place] [facility] MI ABDOM PARACENTESIS 2021-11-09 20:59:55 Kev Nguyen [facility] DX/THER W IMAGING [facility] GUIDANCE CONSENT/REFUSAL FOR 2021-11-09 19:35:17 Doctor Unassigned, No [facility] [place] [facility] NOTICE OF PRIVACY 2021-11-09 19:32:40 Doctor Unassigned, No Univ ersity [facility] PRACTICES Name [facility] LIPASE 2021-10-18 15:50:00 Annabelle Ramirez [facility] COMP. METABOLIC PANEL 2021-10-18 15:50:00 Annabelle Ramirez [facility] [place] ([id number]) [facility] CBC WITH DIFF 2021-10-18 15:50:00 Annabelle Ramirez Universi ty of [facility] CONSENT/REFUSAL FOR 2021-10-18 15:18:16 Doctor Unassigned, No Un iversity [facility] DIAGNOSIS AND TREATMENT Name [facility] Encounters Start End Encounter Admission Attending Care Care Encounter Source Date/Time Date/Time Type Type Clinicians Facility Department ID 2022-08-13 2022-08-13 Outpatient [facility] [id number] [place] 08:09:25 08:09:25 [id number] F Kentrell 2022-08-12 2022-08-12 [id number] Univers 10:04:00 12:47:00 CYNISE ity of [facility] 2022-08-12 2022-08-12 [facility] [id number] Univers 10:04:00 12:47:00 Mike SOSA [id number] i ty [facility] 4.2.7.2.686 [facility] [id number] [facility] 084 Bee 2022-06-13 2022-06-13 Outpatient [facility] [id number] [place] 09:35:42 09:35:42 [id number] F Gardner 2022-06-06 2022-06-06 Office Cleve TXEMILIA 1.2.840.114 [id number] Univers 14:30:00 15:00:[address] [facility] SPECIALTY [id number] ity of CARE 4.2.7.2.686 [facility] AT [phone] Mn farrah PALACIOSYasmeen 2 [facility] 2022-06-06 2022-06-06 Outpatient R CLEVE [facility] [id number] Univers 14:30:00 14:30:00 LEILA ity of [facility] 2022-06-06 2022-06-06 Orders Doctor ALVARADO 1.2.840.114 [id number] Univers 00:00:00 00:00:00 Only Unassigned, CARL [id number] ity of [place] [facility] 4.2.7.2.686 Henrique as [phone] [facility] 009 Branch 2022-06-05 2022-06-05 Emergency X [facility]É [facility] ERT 1 [id number] Univers 06:51:00 10:20:00 JOSÉ MIGUEL HUMPHRIES ity of [facility] 2022-06-05 2022-06-05 Emergency Rodney, TRAUMA 1.2.245.676 [id number] Univers 06:51:00 10:20:00 [facility] [id number] [place] [id number] [facility] 014 Branch 2022-05-31 2022-05-31 Emergency X JEREMIAS [facility] ERT 1 [id number] Univers 13:40:00 19:16:00 JEREMIAS MOHR ityasmeen [facility] 2022-05-31 2022-05-31 Emergency Mohr, TRAUMA 1.2.858.031 [id number] Univers 13:40:00 19:16:00 [facility] 350.1.13.10 [place] [id number] [facility] 014 Bee 2022-05-13 2022-05-13 Outpatient SFA [facility] [id number] [place] 08:36:17 08:36:17 [id number] F Kentrell 2022-04-10 2022-04-11 Outpatient U DION [facility] NICOLE [id number] Univers 14:05:00 17:45:00 GEETA reynoso [facility] 2022-04-10 2022-04-11 Emergency Bucky Gloria 1.2.840. 114 [id number] Univers 14:05:00 17:45:00 Geeta Young 350.1.13.10 ity of [facility] 4.2.7.2.686 Henrique as [phone] [facility] 093 Branch 2022-03-27 2022-03-27 Emergency X KITA [facility] ERT [id number] Univers 12:34:00 17:18:00 GINI ity [facility] 2022-03-27 2022-03-27 Emergency Kita [facility] 1.2.826.250 [id number] Univers 12:34:00 17:18:00 Gini SOSA 350.1.13.10 ity of [place] 4.2.7.2.686 [facility] [id number] [address] 2022-03-26 2022-03-26 Outpatient [facility] [id number] [place] 10:22:23 10:22:23 [id number] F Gardner 2022-03-25 2022-03-25 Outpatient [facility] Dontrell 13:11:32 13:11:32 [id number] F Gardner 2022-03-12 2022-03-12 Emergency X NGUYEN, [facility] ERT [id number] Univers 11:38:00 14:36:00 KEV reynoso [facility] 2022-03-12 2022-03-12 Emergency Nguyen, [facility] [id number] Univers 11:38:00 14:36:00 Kev SOSA 350.1.13.10 i ty of [place] [address] [place] [id number] 2022-02-27 2022-02-27 Emergency X NGUYEN, [facility] ERT [id number] Univers 15:04:00 16:07:00 KEV reynoso [facility] 2022-02-27 2022-02-27 Emergency Nguyen, [facility] 1.2.832.064 [id number] Univers 15:04:00 16:07:00 Kev SHEILA 350.1.13.10 i ty of [place] 4.2.7.2.686 [facility] [id number] [address] 2022-02-13 2022-02-13 Emergency X NGUYEN, [facility] ERT [id number] Univers 15:17:00 16:45:00 KEV reynoso [facility] 2022-02-13 2022-02-13 Emergency [facility] 1.2.172.066 [id number] Univers 15:17:00 16:45:00 Kev SOSA 350.1.13.10 i ty of [place] 4.[address].7.[address] [place] [id number] 2022-01-30 2022-01-30 Emergency X , [facility] ERT [id number] Univers 10:58:00 13:28:00 KEV reynoso [facility] 2022-01-30 2022-01-30 Emergency Lila Leo [facility] 1.2.840. 114 [id number] Univers 10:58:00 13:28:00 Kev Nguyen 350.1.13.10 [place] [id number] [facility] 084 Branch 2022-01-16 2022-01-16 Emergency X [facility] ERT [id number] Univers 11:43:00 14:30:00 KEV reynoso [facility] 2022-01-16 2022-01-16 Emergency [facility] 1.2.651.241 [id number] Univers 11:43:00 14:30:00 Kev SOSA 350.1.13.10 i ty of [place] [id number] [facility] 084 Bee 2022-01-16 2022-01-16 Orders Doctor JENNY 1.2.840.114 [id number] Univers 00:00:00 00:00:00 Only Unassigned, CARL 350.1.13.10 ity of [place] [facility] 4.2.7.2.686 Henrique as [id number] [facility] 009 Branch 2022-01-12 2022-01-12 Emergency X ZIYAD [facility] ERT [id number] Univers 17:45:00 21:44:00 JAQUI reynoso [facility] 2022-01-12 2022-01-12 Emergency Dalmedo, Samuel TRAUMA 1.2.840 .114 [id number] Univers 17:45:00 21:44:00 Jaqui Romano 350.1.13.10 [place] [id number] [facility] 014 Branch 2022-01-12 2022-01-12 Emergency X BERNIE [facility] ERT [id number] Univers 15:17:00 15:27:00 MAGNOLIA edgardo [facility] 2022-01-12 2022-01-12 Emergency [facility], [facility] 1.2.697.009 [id number] Univers 15:17:00 15:27:00 Magnolia Claros SHEILA 350.1.13.10 ity of [place] 4.2.7.2.686 [facility] [id number] [facility] 084 Branch 2022-01-01 2022-01-01 Transition FragosoALYObdulio 1.2.840.114 [id number] Univers 00:00:00 00:00:00 of Care Analia AVERY 350.1.13.10 ity of [place] 4.2.7.2.686 [facility] [id number] [facility] 403 Branch 2021-12-25 2021-12-28 Inpatient X TED [facility] NICOLE [id number] Univers 08:38:00 13:08:00 AUGUSTIN ity [facility] 2021-12-25 2021-12-28 [facility] Chilo Oliva [facility] 1.2.840. 114 [id number] Univers 08:38:00 13:08:00 Encounter Miranda Jeanjeff SOSA 350.1.13.10 [facility] 4.2.7.2.686 [facility] [id number] [address] 2021-12-14 2021-12-14 Emergency [facility] ERT [id number] Univers 14:56:00 18:52:00 MIKE reynoso [facility] 2021-12-14 2021-12-14 [facility] 1.2.649.133 [id number] Univers 14:56:00 18:52:00 Mike SOSA 350.1.13.10 i ty [facility] 4.2.7.2.686 [facility] [id number] [address] 2021-12-07 2021-12-09 Inpatient X SEMAJ [facility] NICOLE [id number] Univers 10:44:00 16:35:00 ALISHA ity [facility] 2021-12-07 2021-12-09 [facility] Bucky Gloria [facility] 1.2.840.1 14 [id number] Univers 10:44:00 16:35:00 Encounter Alisha Cha 350.1.13.10 it[facility] 4.2.7.2.686 [facility] [id number] [facility] 081 Branch 2021-11-23 2021-11-23 Emergency X [facility] ERT [id number] Univers 13:42:00 14:58:00 JONNA ityasmeen [facility] 2021-11-23 2021-11-23 Emergency [facility] 1.2.840.114 [id number] Univers 13:42:00 14:58:00 Jonna SOSA 350.1.13.10 ity of [place] 4.2.7.2.686 [facility] [id number] [place] [id number] Branch 2021-11-09 2021-11-09 Emergency [facility] ERT [id number] Univers 14:51:00 16:42:00 KEV edgardo [facility] 2021-11-09 2021-11-09 Emergency [facility] 1.2.571.302 [id number] Univers 14:51:00 16:42:00 Kev SOSA 350.1.13.10 i ty of [place] 4.2.7.2.686 [facility] [id number] [facility] 084 Branch 2021-11-09 2021-11-09 Orders Doctor JENNY 1.2.840.114 [id number] Univers 00:00:00 00:00:00 Only Unassigned, CARL 350.1.13.10 ity of [place] [facility] 4.2.7.2.686 Henrique [id number] [facility] 009 Branch 2021-10-18 2021-10-18 Emergency X [facility] ERT [id number] Univers 10:21:00 11:56:00 ANNABELLE cedenoy [facility] 2021-10-18 2021-10-18 Emergency Ibikunle, TRAUMA 1.2.840.114 [id number] Univers 10:21:00 11:56:00 [facility] 350.1.13.10 ity of 4.2.7.2.686 [facility] [id number] Medi rosario 014 Branch Results Test Description Test Time Test Comments Results Result Comments Source BASIC METABOLIC PANEL (NA, K, CL, CO2, GLUCOSE, BUN, 2022-05 13:40:36 CREATININE, CA) Test Item Value Reference Range Interpretation Comme nts NA (test code = 2858614089) 138 mmol/L 135-145 K (test code = 3428778427) 4.8 mmol/L 3.5-5.0 CL (test code = 6937432201) 102 mmol/L 98-108 CO2 TOTAL (test code = 6491606629) 32 mmol/L 23-31 H AGAP (test code = 4647141008) 4 2-16 BUN (test code = 1466136808) 45 mg/dL 7-23 H GLUCOSE (test code = 3162701804) 163 mg/dL 70-110 H CREATININE (test code = 2.52 mg/dL 0.60-1.25 H 7919736857) CALCIUM (test code = 9934313918) 8.1 mg/dL 8.6-10.6 L eGFR (test code = 8648307705) 25.8 mL/min/1.73m2 RODRIGO (test code = RODRIGO) [...] tests). Lab Interpretation (test code = Abnormal 77237-0) [facility]05413[facility] (ALB,T.PRO,BILI T,BU/BC,ALT,AST,ALK PHOS)2022-06-05 13:40:36 Test Item Value Reference Range Interpretation Comments TOTAL BILI (test code = 4086964827) 0.4 mg/dL 0.1-1.1 BILI UNCON (test code = 7089952748) 0.1 mg/dL 0.1-1.1 BILI CONJ (test code = 4820868226) 0.0 mg/dL 0.0-0.3 T PROTEIN (test code = 6352786077) 6.0 g/dL 6.3-8.2 L ALBUMIN (test code = 1413521713) 2.9 g/dL 3.5-5.0 L ALK PHOS (test code = 7079775741) 71 U/L 34-122 ALTv (test code = 1742-6) 15 U/L 5-50 AST(SGOT) (test code = 9041568896) 23 U/L 13-40 Lab Interpretation (test code = Abnormal 88868-7) [facility] 13:40:36 Test Item Value Reference Range Interpretation Comments LIPASE (test code = 6408667332) 125 U/L 0-220 Lab Interpretation (test code = Normal 29950-9) [facility] THRMPLAS [id number] 13:37:54 Test Item Value Reference Range Interpretation Comments APTT Patient (test code 38 See_Comment H [Au tomated message] = 4733-2) The system HDmessaging generated this result transmitted ref erence range: 26 - 36 Seconds. The reference range was not used to int erpret this result as normal/abnormal . Lab Interpretation (test Abnormal code = 94621-6) [facility] / [id number] 13:37:54 Test Item Value Reference Range Interpretation [...] tions. Lab Interpretation (test Abnormal code = 00478-2) [facility] WITH [id number] 13:31:36 Test Item Value Reference Range Interpretation [...] RDW-SD (test code = 45.2 fL 38.5-51.6 63739-7) RDW-CV (test code = 13.9 % 12.1-15.4 788-0) PLT (test code = 123 See_Comment L [Automated 777-3) message] The sy stem which generated this result transmitted reference range : 150 - 328 10*3/ ?L. The reference r kelin was not used to interpret this result as normal/abnormal . MPV (test code = 9.7 fL 9.8-13.0 L 00908-0) NRBC/100 WBC (test 0.0 See_Comment [Automat ed code = 5806610501) message] The system which generated this result transmitted reference range : 0.0 - 10.0 /100 WBCs. The refer ence range was not u sed to interpret th is result as normal/abnormal . NRBC x10^3 (test code See_Comment [Auto mated = 1305764124) message] The s ystem which generated this result transmitted reference range : 10*3/?L. The reference range was not used to interpret this result as normal/abnormal . GRAN MAT (NEUT) % 74.0 % (test code = 770-8) IMM GRAN % (test code 0.70 % = 8314098725) LYMPH % (test code = 10.9 % 736-9) MONO % (test code = 11.2 % 5905-5) EOS % (test code = 2.7 % 713-8) BASO % (test code = 0.5 % 706-2) GRAN MAT x10^3(ANC) 3.25 10*3/uL 1.99-6.95 (test code = 0274555335) IMM GRAN x10^3 (test 0.03 10*3/uL 0.00-0.06 code = 6652927394) LYMPH x10^3 (test code 0.48 10*3/uL 1.09-3.23 L = 731-0) MONO x10^3 (test code 0.49 10*3/uL 0.36-1.02 = 742-7) EOS x10^3 (test code = 0.12 10*3/uL 0.06-0.53 711-2) BASO x10^3 (test code 0.01-0.09 = 704-7) Lab Interpretation Abnormal (test code = 53763-3) [facility] METABOLIC PANEL (NA, K, CL, CO2, GLUCOSE, BUN, CREATININE, CA)2022-05-31 19:22:56 Test Item Value Reference Range Interpretation Comments NA (test code = 136 mmol/L 135-145 5307044493) K (test code = 5.2 mmol/L 3.5-5.0 H 6203832381) CL (test code = 100 mmol/L 98-108 0719590256) CO2 TOTAL (test code = 29 mmol/L 23-31 6929252951) AGAP (test code = 7 2-16 5966020385) BUN (test code = 49 mg/dL 7-23 H 1934346682) GLUCOSE (test code = 115 mg/dL 70-110 H 3357114208) CREATININE (test code = 2.47 mg/dL 0.60-1.25 H 3136087623) CALCIUM (test code = 8.3 mg/dL 8.6-10.6 L 9504520531) eGFR (test code = 26.4 mL/min/1.73m2 1641338966) RODRIGO (test code = RODRIGO) Association of [...] tests). Lab Interpretation Abnormal (test code = 49566-6) [facility] WITH [id number] 19:14:12 Test Item Value Reference Range Interpretation [...] RDW-SD (test code = 46.5 fL 38.5-51.6 88968-8) RDW-CV (test code = 14.3 % 12.1-15.4 788-0) PLT (test code = 163 See_Comment [Automated 777-3) message] The sy stem which generated this result transmitted reference range : 150 - 328 10*3/ ?L. The reference r kelin was not used to interpret this result as normal/abnormal . MPV (test code = 9.2 fL 9.8-13.0 L 94743-7) NRBC/100 WBC (test 0.0 See_Comment [Automat ed code = [id number]) message] The system which generated this result transmitted reference range : 0.0 - 10.0 /100 WBCs. The refer ence range was not u sed to interpret th is result as normal/abnormal . NRBC x10^3 (test code See_Comment [Auto mated = [id number]) message] The s ystem which generated this result transmitted reference range : 10*3/?L. The reference range was not used to interpret this result as normal/abnormal . GRAN MAT (NEUT) % 73.9 % (test code = 770-8) IMM GRAN % (test code 0.40 % = [id number]) LYMPH % (test code = 13.1 % 736-9) MONO % (test code = 9.1 % 5905-5) EOS % (test code = 2.9 % 713-8) BASO % (test code = 0.6 % 706-2) GRAN MAT x10^3(ANC) 3.51 10*3/uL 1.99-6.95 (test code = [id number]) IMM GRAN x10^3 (test 0.00-0.06 code = [id number]) LYMPH x10^3 (test code 0.62 10*3/uL 1.09-3.23 L = 731-0) MONO x10^3 (test code 0.43 10*3/uL 0.36-1.02 = 742-7) EOS x10^3 (test code = 0.14 10*3/uL 0.06-0.53 711-2) BASO x10^3 (test code 0.03 10*3/uL 0.01-0.09 = 704-7) Lab Interpretation Abnormal (test code = 99686-6) [facility] / [id number] 19:12:09 Test Item Value Reference Range Interpretation Comments PROTIME PATIENT (test 12.7 See_Comment H [Auto mated message] code = 5964-2) The system [employer] generated this result transmitted ref erence range: 10.1 - 1 2.6 Seconds. The reference range was not used to int erpret this result as normal/abnormal . INR (test code = 6301-6) 1.1 Nor mal INR <1.1; Warfarin Therap eutic range 2.0 to 3. 0 or 2.5 to 3.5, dep ending upon the indica tions. Lab Interpretation (test Abnormal code = 73727-9) [facility] HospitalBODY FLUID MANUAL [id number] 22:52:46 Test Item Value Reference Range Interpretation Comments BF SEGS% (test 16 % code = 08170-7) BF LYMPHS% (test 50 % code = 18341-6) BF MACROPHAGE% 30 % (test code = 47861-0) BF MESOS% (test 4 % code = 91714-5) BF #CELLS CNTD 100 cells/uL (test code = 8077243264) RODRIGO (test code = Reviewed by HANG HERNANDES MD, Director of HEMATOPATHOLOGY [facility] HospitalTotal Protein Body [id number] 08:10:53 Test Item Value Reference Range Interpretation Comments T.PROT BF (test 3000.0 mg/dL code = 0102279725) UNSPUN BODY FLUID Light Yellow COLOR (test code = 0218884001) UNSPUN BODY FLUID Cloudy CLARITY (test code = 3583841410) SPUN BODY FLUID Light Yellow COLOR (test code = 7900443576) SPUN BODY FLUID Cloudy CLARITY (test code = 7943820454) Sediment (test code The sediment volume is = 3453819080) <0.01 mLs of the total fluid volume of 5 mLs and its color is red. RODRIGO (test code = Test developed and RODRIGO) characteristics determined by [facility] Laboratory Services. [facility] HospitalBODY FLUID DIRECT [id number] 08:09:17 Test Item Value Reference Range Interpretation Comments BF COLOR (test Yellow code = 7560516982) TURBIDITY (test Turbid code = 9437814731) BF WBC Count 645 See_Comment [Automated (test code = message] The 3578974861) system which generated this result transmitted reference range : /?L. The reference range was not used to interpret this result as normal/abnormal . BF RBC Count See_Comment [Automated (test code = message] The 9134120019) system which generated this result transmitted reference range : /?L. The reference range was not used to interpret this result as normal/abnormal . RODRIGO (test code = The reference range RODRIGO) and other method performance specifications have not been established for this body fluid. ?The test results must be integrated into the clinical context for interpretation. [facility] HospitalGLYCOSYLATED HEMOGLOBIN (A1C)2022-04-11 04:15:40 Test Item Value Reference Range Interpretation Comments HGB A1C (test code = 5.0 % 4.0-5.7 4548-4) RODRIGO (test code = RODRIGO) Reference RangesNormal: <5.7%Prediabetes: 5.7 - 6.4%Diabetes: > 6.5% Lab Interpretation (test Normal code = 97431-0) [facility]ACT[facility] THRMPLAS [id number] 21:53:50 Test Item Value Reference Range Interpretation Comments APTT Patient (test 27 See_Comment [Automat ed code = 3173-2) message] The system which generated this result transmitted reference range : 23 - 38 Seconds . The reference range was not used to interpr et this result as normal/abnormal . RODRIGO (test code = RODRIGO) The [facility] patient population mean normal value for aPTT is 30 seconds. Lab Interpretation Normal (test code = 77172-2) [facility] HospitalPROTHROMBIN TIME / [id number] 21:51:52 Test Item Value Reference Range Interpretation [...] tions. Lab Interpretation (test Normal code = 52298-9) [facility] HospitalCOMP. METABOLIC PANEL (30639)2022-04-10 21:50:30 Test Item Value Reference Range Interpretation Comments NA (test code = 138 mmol/L 135-145 6270436704) K (test code = 4.7 mmol/L 3.5-5.0 3248133368) CL (test code = 114 mmol/L 98-108 H 7877662416) CO2 TOTAL (test code = 21 mmol/L 23-31 L 3375433757) AGAP (test code = 3 2-16 8835176683) BUN (test code = 55 mg/dL 7-23 H 9158721202) GLUCOSE (test code = 119 mg/dL 70-110 H 5347057662) CREATININE (test code = 1.98 mg/dL 0.60-1.25 H 9603918753) TOTAL BILI (test code = 0.7 mg/dL 0.1-1.9 7283701435) CALCIUM (test code = 7.7 mg/dL 8.6-10.6 L 6488561880) T PROTEIN (test code = 6.0 g/dL 6.3-8.2 L 1419539184) ALBUMIN (test code = 2.5 g/dL 3.5-5.0 L 8820351912) ALK PHOS (test code = 85 U/L 34-122 3405975641) ALTv (test code = 23 U/L 5-50 1742-6) AST(SGOT) (test code = 33 U/L 13-40 6592630218) eGFR (test code = 34.1 mL/min/1.73m2 4089164952) RODRIGO (test code = RODRIGO) Association of [...] tests). Lab Interpretation Abnormal (test code = 00494-6) [facility] WITH [id number] 21:35:48 Test Item Value Reference Range Interpretation [...] RDW-SD (test code = 50.8 fL 38.5-51.6 40725-8) RDW-CV (test code = 16.6 % 12.1-15.4 H 788-0) PLT (test code = 170 See_Comment [Automated 777-3) message] The sy stem which generated this result transmitted reference range : 150 - 328 10*3/ ?L. The reference r kelin was not used to interpret this result as normal/abnormal . MPV (test code = 9.2 fL 9.8-13.0 L 41238-9) NRBC/100 WBC (test 0.0 See_Comment [Automat ed code = 6427970045) message] The system which generated this result transmitted reference range : 0.0 - 10.0 /100 WBCs. The refer ence range was not u sed to interpret th is result as normal/abnormal . NRBC x10^3 (test code See_Comment [Auto mated = 7285832023) message] The s ystem which generated this result transmitted reference range : 10*3/?L. The reference range was not used to interpret this result as normal/abnormal . GRAN MAT (NEUT) % 73.6 % (test code = 770-8) IMM GRAN % (test code 1.30 % = 9020608459) LYMPH % (test code = 12.6 % 736-9) MONO % (test code = 8.9 % 5905-5) EOS % (test code = 3.2 % 713-8) BASO % (test code = 0.4 % 706-2) GRAN MAT x10^3(ANC) 3.40 10*3/uL 1.99-6.95 (test code = 7210408942) IMM GRAN x10^3 (test 0.06 10*3/uL 0.00-0.06 code = 9486557079) LYMPH x10^3 (test code 0.58 10*3/uL 1.09-3.23 L = 731-0) MONO x10^3 (test code 0.41 10*3/uL 0.36-1.02 = 742-7) EOS x10^3 (test code = 0.15 10*3/uL 0.06-0.53 711-2) BASO x10^3 (test code 0.01-0.09 = 704-7) Lab Interpretation Abnormal (test code = 88191-4) [facility] HospitalCULTURE, [id number] 09:54:12SPECIMEN NUMBER: [id number] CULTURE, URINE SPECIMEN NUMBER: [id number] SPECIMEN COMMENT: URINE SOURCE:URINE REPORT STATUS: FINAL FINAL REPORT: 03/28/2022 10-50,000 CFU/ML UROGENITAL ANUPAM PRESENT NO COMMON [id number] 04:49:09 Test Item Value Reference Range Interpretation Comments MAGNESIUM (test code = 2226) 2.2 MG/DL 1.6-2.6 COMPREHENSIVE METABOLIC [id number] 04:36:10 Test Item Value Reference Range Interpretation Comments GLUCOSE (test code = 96 MG/DL 70-99 2216) BUN (test code = 39 MG/DL 8-23 H 2207) CREATININE (test 2.06 MG/DL 0.80-1.40 H code = 2214) eGFR (2020 CKD-EPI) 35 ML/MIN/1.73 >60 L (test code = 24302) CALC BUN/CREAT (test 19 RATIO 6-28 code = 2235) SODIUM (test code = 141 MEQ/L 512-349 4034) POTASSIUM (test code 4.3 MEQ/L 3.5-5.4 = [...] U/L 5-50 2218) CBC W/AUTO DIFF WITH [id number] 02:15:32 Test Item Value Reference Range Interpretation [...] message] code = 1065) WBC'S The system HDmessaging generated this result transmitted ref erence range: [...] 0.00-0.11 UNLESS O THERWISE (test code = 77695) INDICATE D, ALL TESTING PERFORM ED ATCLINICAL PATH OLOGY LABORATORIES, [facility]. [address] [place] [id number] [place] [address] DIRECTOR: SHERRI PLASENCIA M.D. CLIA NUMBER [id number] CAP ACCREDITATION N O. [id number] COMP. METABOLIC PANEL (02428)2022 01:50:35 Test Item Value Reference Range Interpretation Comments NA (test code = 136 mmol/L 135-145 7439478207) K (test code = 5.2 mmol/L 3.5-5.0 H 8477619045) CL (test code = 102 mmol/L 98-108 0032926650) CO2 TOTAL (test code = 26 mmol/L 23-31 4192354045) AGAP (test code = 2-16 1462469340) BUN (test code = 49 mg/dL 7-23 H 9185490393) GLUCOSE (test code = 143 mg/dL 70-110 H 0680035924) CREATININE (test code = 2.26 mg/dL 0.60-1.25 H 3948622030) TOTAL BILI (test code = 0.4 mg/dL 0.1-1.2 0463132507) CALCIUM (test code = 8.2 mg/dL 8.6-10.6 L 6280378296) T PROTEIN (test code = 6.8 g/dL 6.3-8.2 9983392227) ALBUMIN (test code = 2.9 g/dL 3.5-5.0 L 3129194516) ALK PHOS (test code = 101 U/L 34-122 5600964936) ALTv (test code = 14 U/L 5-50 1742-6) AST(SGOT) (test code = 21 U/L 13-40 8858245830) eGFR (test code = mL/min/1.73m2 8297179548) RODRIGO (test code = RODRIGO) Association of [...] tests). Lab Interpretation Abnormal (test code = 02142-5) [facility] HospitalPROTHROMBIN TIME / [id number] 01:37:54 Test Item Value Reference Range Interpretation [...] tions. Lab Interpretation (test Abnormal code = 13728-7) [facility] HospitalACTIV[facility] THRMPLAS [id number] 01:37:54 Test Item Value Reference Range Interpretation Comments APTT Patient (test code See_Comment H [Au tomated message] = 3173-2) The system ic h generated this result transmitted ref erence range: 26 - 36 Seconds. The reference range was not used to int erpret this result as normal/abnormal . Lab Interpretation (test Abnormal code = 81406-3) [facility] HospitalCB WITH [id number] 01:33:12 Test Item Value Reference Range Interpretation Comments WBC (test code = See_Comment [Automated 6690-2) message] The sy stem which generated this result transmitted reference range : 4.20 - 10.70 10*3/?L. The reference range was not used to interpret this result as normal/abnormal . RBC (test code = See_Comment L [Automated 429-8) message] The sy stem which generated this [...] (test code = 54.2 fL 38.5-51.6 H 86932-4) RDW-CV (test code = 19.4 % 12.1-15.4 H 788-0) PLT (test code = See_Comment [Automated 777-3) message] The sy stem which generated this result transmitted reference range : 150 - 328 10*3/ ?L. The reference r kelin was not used to interpret this result as normal/abnormal . MPV (test code = 9.2 fL 9.8-13.0 L 66060-6) NRBC/100 WBC (test See_Comment [Automat ed code = 0659518965) message] The system which generated this result transmitted reference range : 0.0 - 10.0 /100 WBCs. The refer ence range was not u sed to interpret th is result as normal/abnormal . NRBC x10^3 (test code See_Comment [Auto mated = 9337497475) message] The s ystem which generated this result transmitted reference range : 10*3/?L. The reference range was not used to interpret this result as normal/abnormal . GRAN MAT (NEUT) % 75.8 % (test code = 770-8) IMM GRAN % (test code 0.80 % = 9960179054) LYMPH % (test code = 12.1 % 736-9) MONO % (test code = 8.3 % 5905-5) EOS % (test code = 2.5 % 713-8) BASO % (test code = 0.5 % 706-2) GRAN MAT x10^3(ANC) 4.56 10*3/uL 1.99-6.95 (test code = 6122414843) IMM GRAN x10^3 (test 0.05 10*3/uL 0.00-0.06 code = 7844131221) LYMPH x10^3 (test code 0.73 10*3/uL 1.09-3.23 L = 731-0) MONO x10^3 (test code 0.50 10*3/uL 0.36-1.02 = 742-7) EOS x10^3 (test code = 0.15 10*3/uL 0.06-0.53 711-2) BASO x10^3 (test code 0.03 10*3/uL 0.01-0.09 = 704-7) Lab Interpretation Abnormal (test code = 64181-0) [facility] HospitalPOTN GLUCOSE (AUTOMATED)2021-12-28 13:35:14 Test Item Value Reference Range Interpretation Comments POCT GLU (test code = 1592846223) 160 mg/dL 70-110 H Lab Interpretation (test code = Abnormal 62786-5) [facility] METABOLIC PANEL (NA, K, CL, CO2, GLUCOSE, BUN, CREATININE, CA)2021-12-28 09:59:31 Test Item Value Reference Range Interpretation Comments NA (test code = 135 mmol/L 135-145 0467675809) K (test code = 3.8 mmol/L 3.5-5 1491905245) CL (test code = 107 mmol/L 98-108 5676556867) CO2 TOTAL (test code = 25 mmol/L 23-31 1387209002) AGAP (test code = 2-16 7870433044) BUN (test code = 42 mg/dL 7-23 H 5386571295) GLUCOSE (test code = 150 mg/dL 70-110 H 0333379037) CREATININE (test code = 2.01 mg/dL 0.6-1.25 H 3010442441) CALCIUM (test code = 7.6 mg/dL 8.6-10.6 L 5939188056) eGFR (test code = mL/min/1.73m2 2743856927) RODRIGO (test code = RODRIGO) Association of [...] tests). Lab Interpretation Abnormal (test code = 77850-0) [facility] WITH [id number] 09:37:28 Test Item Value Reference Range Interpretation Comments WBC (test code = See_Comment L [Automated 1990-2) message] The sy stem which generated this [...] (test code = 52.0 fL 38.5-51.6 H 15775-0) RDW-CV (test code = 19.2 % 12.1-15.4 H 788-0) PLT (test code = See_Comment [Automated 777-3) message] The sy stem which generated this result transmitted reference range : 150 - 328 10*3/ ?L. The reference r kelin was not used to interpret this result as normal/abnormal . MPV (test code = 9.6 fL 9.8-13 L 71539-9) NRBC/100 WBC (test See_Comment [Automat ed code = 6294819430) message] The system which generated this result transmitted reference range : 0.0 - 10.0 /100 WBCs. The refer ence range was not u sed to interpret th is result as normal/abnormal . NRBC x10^3 (test code See_Comment [Auto mated = 4375526421) message] The s ystem which generated this result transmitted reference range : 10*3/?L. The reference range was not used to interpret this result as normal/abnormal . GRAN MAT (NEUT) % 75.3 % (test code = 770-8) IMM GRAN % (test code 0.60 % = 1849020093) LYMPH % (test code = 11.9 % 736-9) MONO % (test code = 9.6 % 5905-5) EOS % (test code = 2.3 % 713-8) BASO % (test code = 0.3 % 706-2) GRAN MAT x10^3(ANC) 2.34 10*3/uL 1.99-6.95 (test code = 7892677612) IMM GRAN x10^3 (test 0-0.06 code = 7619206172) LYMPH x10^3 (test code 0.37 10*3/uL 1.09-3.23 L = 731-0) MONO x10^3 (test code 0.30 10*3/uL 0.36-1.02 L = 742-7) EOS x10^3 (test code = 0.07 10*3/uL 0.06-0.53 711-2) BASO x10^3 (test code 0.01-0.09 = 704-7) Lab Interpretation Abnormal (test code = 95210-4) [facility] GLUCOSE (AUTOMATED)2021-12-28 00:57:50 Test Item Value Reference Range Interpretation Comments POCT GLU (test code = 9224621547) 146 mg/dL 70-110 H Lab Interpretation (test code = Abnormal 56839-6) [facility]2021-12-27 21:58:17 Test Item Value Reference Range Interpretation Comments POCT GLU (test code = 6263032073) 125 mg/dL 70-110 H Lab Interpretation (test code = Abnormal 17104-8) [facility] GLUCOSE (AUTOMATED)2021-12-27 16:47:36 Test Item Value Reference Range Interpretation Comments POCT GLU (test code = 6635802643) 121 mg/dL 70-110 H Lab Interpretation (test code = Abnormal 72491-2) [facility] 12:53:58 Test Item Value Reference Range Interpretation Comments POCT GLU (test code = 8062045181) 114 mg/dL 70-110 H Lab Interpretation (test code = Abnormal 49274-2) [facility] GLUCOSE (AUTOMATED)2021-12-27 01:17:27 Test Item Value Reference Range Interpretation Comments POCT GLU (test code = 3117777273) 184 mg/dL 70-110 H Lab Interpretation (test code = Abnormal 24539-5) [facility]21-[facility]-26 21:25:07 Test Item Value Reference Range Interpretation Comments POCT GLU (test code = 9484041272) 151 mg/dL 70-110 H Lab Interpretation (test code = Abnormal 35107-6) [facility]21-[facility]-26 17:40:52 Test Item Value Reference Range Interpretation Comments POCT GLU (test code = 5851398932) 148 mg/dL 70-110 H Lab Interpretation (test code = Abnormal 49854-3) [facility]2021-12-26 12:54:00 Test Item Value Reference Range Interpretation Comments POCT GLU (test code = 8400613483) 150 mg/dL 70-110 H Lab Interpretation (test code = Abnormal 13936-1) [facility]21-12-26 10:22:39 Test Item Value Reference Range Interpretation Comments POCT GLU (test code = 7980130852) 150 mg/dL 70-110 H Lab Interpretation (test code = Abnormal 75489-8) [facility]21-12-26 01:21:28 Test Item Value Reference Range Interpretation Comments POCT GLU (test code = 7952283578) 136 mg/dL 70-110 H Lab Interpretation (test code = Abnormal 85189-7) [facility] METABOLIC PANEL (NA, K, CL, CO2, GLUCOSE, BUN, CREATININE, CA)2021-12-14 22:24:31 Test Item Value Reference Range Interpretation Comments NA (test code = 135 mmol/L 135-145 5243053604) K (test code = 5.5 mmol/L 3.5-5 H 2541709582) CL (test code = 105 mmol/L 98-108 4702415585) CO2 TOTAL (test code = 21 mmol/L 23-31 L 4058070947) AGAP (test code = 2-16 3919720532) BUN (test code = 44 mg/dL 7-23 H 9206427653) GLUCOSE (test code = 164 mg/dL 70-110 H 2776246326) CREATININE (test code = 1.79 mg/dL 0.6-1.25 H 4177828742) CALCIUM (test code = 7.9 mg/dL 8.6-10.6 L 3983231406) eGFR (test code = mL/min/1.73m2 3440062759) RODRIGO (test code = RODRIGO) Association of [...] tests). Lab Interpretation Abnormal (test code = 00465-2) [facility] WITH [id number] 22:14:09 Test Item Value Reference Range Interpretation [...] (test code = 52.1 fL 38.5-51.6 H 53050-5) RDW-CV (test code = 20.0 % 12.1-15.4 H 788-0) PLT (test code = See_Comment [Automated 777-3) message] The sy stem which generated this result transmitted reference range : 150 - 328 10*3/ ?L. The reference r kelin was not used to interpret this result as normal/abnormal . MPV (test code = 9.8 fL 9.8-13 89863-9) NRBC/100 WBC (test See_Comment [Automat ed code = 2929166019) message] The system which generated this result transmitted reference range : 0.0 - 10.0 /100 WBCs. The refer ence range was not u sed to interpret th is result as normal/abnormal . NRBC x10^3 (test code See_Comment [Auto mated = 9461873820) message] The s ystem which generated this result transmitted reference range : 10*3/?L. The reference range was not used to interpret this result as normal/abnormal . GRAN MAT (NEUT) % 79.6 % (test code = 770-8) IMM GRAN % (test code 0.90 % = 4757412057) LYMPH % (test code = 10.6 % 736-9) MONO % (test code = 7.4 % 5905-5) EOS % (test code = 1.2 % 713-8) BASO % (test code = 0.3 % 706-2) GRAN MAT x10^3(ANC) 4.60 10*3/uL 1.99-6.95 (test code = 4101041902) IMM GRAN x10^3 (test 0.05 10*3/uL 0-0.06 code = 1264006187) LYMPH x10^3 (test code 0.61 10*3/uL 1.09-3.23 L = 731-0) MONO x10^3 (test code 0.43 10*3/uL 0.36-1.02 = 742-7) EOS x10^3 (test code = 0.07 10*3/uL 0.06-0.53 711-2) BASO x10^3 (test code 0.01-0.09 = 704-7) Lab Interpretation Abnormal (test code = 47059-9) [facility] GLUCOSE (AUTOMATED)2021-12-09 16:40:51 Test Item Value Reference Range Interpretation Comments POCT GLU (test code = 0315675158) 200 mg/dL 70-110 H Lab Interpretation (test code = Abnormal 00523-4) [facility] GLUCOSE (AUTOMATED)2021-12-09 12:53:24 Test Item Value Reference Range Interpretation Comments POCT GLU (test code = 2157611612) 197 mg/dL 70-110 H Lab Interpretation (test code = Abnormal 46035-1) [facility] GLUCOSE (AUTOMATED)2021-12-09 01:58:46 Test Item Value Reference Range Interpretation Comments POCT GLU (test code = 2221159211) 138 mg/dL 70-110 H Lab Interpretation (test code = Abnormal 97344-1) [facility] GLUCOSE (AUTOMATED)2021-12-08 22:02:54 Test Item Value Reference Range Interpretation Comments POCT GLU (test code = 0179613978) 123 mg/dL 70-110 H Lab Interpretation (test code = Abnormal 98608-4) [facility] GLUCOSE (AUTOMATED)2021-12-08 17:18:39 Test Item Value Reference Range Interpretation Comments POCT GLU (test code = 9233421265) 200 mg/dL 70-110 H Lab Interpretation (test code = Abnormal 59931-1) [facility] GLUCOSE (AUTOMATED)2021-12-08 14:20:51 Test Item Value Reference Range Interpretation Comments POCT GLU (test code = 9712994796) 189 mg/dL 70-110 H Lab Interpretation (test code = Abnormal 82216-9) [facility] GLUCOSE (AUTOMATED)2021-12-08 02:14:54 Test Item Value Reference Range Interpretation Comments POCT GLU (test code = 2421573454) 276 mg/dL 70-110 H Lab Interpretation (test code = Abnormal 62297-7) [facility]Glycosylated Hemoglobin (A1C)2021-12-08 00:06:25 Test Item Value Reference Range Interpretation Comments HGB A1C (test code = 6.6 % 4-5.7 H 4548-4) RODRIGO (test code = RODRIGO) Reference RangesNormal: <5.7%Prediabetes: 5.7 - 6.4%Diabetes: > 6.5% Lab Interpretation (test Abnormal code = 07882-7) [facility] HospitalMagnesium [id number] 23:59:59 Test Item Value Reference Range Interpretation Comments MAGNESIUM (test code = 4190525928) 2.6 mg/dL 1.7-2.4 H Lab Interpretation (test code = Abnormal 24057-3) [facility] HospitalLipid Panel (Total Cholesterol, Triglycerides, HDL) - [id number] 23:59:59 Test Item Value Reference Range Interpretation Comments CHOL (test code = 106 mg/dL 120-200 L 7584950128) HDL (test code = 20 mg/dL See_Comment L [Automated message] 6111014623) The system HDmessaging generated this result transmit ros reference range : >=40. The refer ence range was not u sed to interpret th is result as normal/abnormal . HDLC RATIO (test code = See_Comment H [Au tomated message] 0000457522) The system HDmess[employer] generated this result transmit ros reference range : <=5.0. The refe rence range was not u sed to interpret th is result as normal/abnormal . TRIG (test code = 86 mg/dL 30-170 7293211886) LDL CHOL (test code = 69 mg/dL See_Comment [Auto mated message] 66770-6) The system HDmessaging generated this result transmit ros reference range : <=160. The refe rence range was not u sed to interpret th is result as normal/abnormal . VLDL (test code = 17 mg/dL 5-60 3839758640) Lab Interpretation (test Abnormal code = 12169-5) [facility] HospitalPhosphorus [id number] 23:59:39 Test Item Value Reference Range Interpretation Comments PHOSPHORUS (test code = 4575800943) 4.9 mg/dL 2.5-5 Lab Interpretation (test code = Normal 19891-1) [facility] HospitalN-TERMINAL [id number] 21:09:22 Test Item Value Reference Range Interpretation Comments NT-proBNP (test code 1600 pg/mL See_Comment H [Autom ated = 1024494128) message] The system which generated this result transmitted reference range : <=125. The reference range was not used to interpret this result as normal/abnormal . RODRIGO (test code = RODRIGO) Biotin has been reported to cause a negative bias, interpret results relative to patient's use of biotin. Lab Interpretation Abnormal (test code = 61148-3) [facility] HospitalCreatine [id number] 19:56:54 Test Item Value Reference Range Interpretation Comments CK (test code = 6861118360) 28 U/L 33-194 L Lab Interpretation (test code = Abnormal 72813-3) [facility] HospitalCOMP. METABOLIC PANEL (41248)2021-12-07 16:38:09 Test Item Value Reference Range Interpretation Comments NA (test code = 137 mmol/L 135-145 9952167895) K (test code = 5.4 mmol/L 3.5-5 H 0288606967) CL (test code = 106 mmol/L 98-108 1163370057) CO2 TOTAL (test code = 23 mmol/L 23-31 2804560518) AGAP (test code = 2-16 4067468306) BUN (test code = 49 mg/dL 7-23 H 4110371213) GLUCOSE (test code = 154 mg/dL 70-110 H 0771102005) CREATININE (test code = 2.34 mg/dL 0.6-1.25 H 0089263417) TOTAL BILI (test code = 0.6 mg/dL 0.1-1.6 0608078366) CALCIUM (test code = 8.0 mg/dL 8.6-10.6 L 0279390274) T PROTEIN (test code = 6.1 g/dL 6.3-8.2 L [id number]) ALBUMIN (test code = 2.5 g/dL 3.5-5 L [id number]) ALK PHOS (test code = 100 U/L 34-122 9732780843) ALTv (test code = 15 U/L 5-50 1742-6) AST(SGOT) (test code = 23 U/L 13-40 3125569779) eGFR (test code = mL/min/1.73m2 8002234640) RODRIGO (test code = RODRIGO) Association of [...] tests). Lab Interpretation Abnormal (test code = 99121-4) [facility] [id number] 16:37:12 Test Item Value Reference Range Interpretation Comments APTT Patient (test See_Comment [Automat ed code = 3173-2) message] The system which generated this result transmitted reference range : 23 - 38 Seconds . The reference range was not used to interpr et this result as normal/abnormal . RODRIGO (test code = RODRIGO) [facility] patient population mean normal value for aPTT is 30 seconds. Lab Interpretation Normal (test code = 06898-8) [facility] / [id number] 16:35:10 Test Item Value Reference Range Interpretation [...] tions. Lab Interpretation (test Abnormal code = 30849-2) [facility] WITH [id number] 16:11:30 Test Item Value Reference Range Interpretation [...] (test code = 53.5 fL 38.5-51.6 H 22691-5) RDW-CV (test code = 20.5 % 12.1-15.4 H 788-0) PLT (test code = See_Comment [Automated 777-3) message] The sy stem which generated this result transmitted reference range : 150 - 328 10*3/ ?L. The reference r kelin was not used to interpret this result as normal/abnormal . MPV (test code = 10.0 fL 9.8-13 43361-6) NRBC/100 WBC (test See_Comment [Automat ed code = 8831113752) message] The system which generated this result transmitted reference range : 0.0 - 10.0 /100 WBCs. The refer ence range was not u sed to interpret th is result as normal/abnormal . NRBC x10^3 (test code See_Comment [Auto mated = [id number]) message] The s ystem which generated this result transmitted reference range : 10*3/?L. The reference range was not used to interpret this result as normal/abnormal . GRAN MAT (NEUT) % 82.5 % (test code = 770-8) IMM GRAN % (test code 0.90 % = 2947180377) LYMPH % (test code = 7.8 % 736-9) MONO % (test code = 7.3 % 5905-5) EOS % (test code = 1.2 % 713-8) BASO % (test code = 0.3 % 706-2) GRAN MAT x10^3(ANC) 5.74 10*3/uL 1.99-6.95 (test code = 2954268774) IMM GRAN x10^3 (test 0.06 10*3/uL 0-0.06 code = 9350503252) LYMPH x10^3 (test code 0.54 10*3/uL 1.09-3.23 L = 731-0) MONO x10^3 (test code 0.51 10*3/uL 0.36-1.02 = 742-7) EOS x10^3 (test code = 0.08 10*3/uL 0.06-0.53 711-2) BASO x10^3 (test code 0.01-0.09 = 704-7) Lab Interpretation Abnormal (test code = 52405-0) [facility]"
--- NOTE | 2022-08-24 10:36 | ER ---
Nurse's Notes [facility] Name: Mc Willingham Age: 67 yrs Sex: Male : 1955 Arrival Date: 08/24/2022 Time: 07:33 Bed 5 Private MD: Diagnosis: Other ascites Presentation: 08/24 07:46 Chief complaint: Patient states: pt was seen yesterday for distended abdomen, hx of vg1 cirrhosis of the liver; was told to come to ED today by 8am to have procedure of paracentesis. Coronavirus screen: Vaccine status: Patient reports being unvaccinated. Client denies travel out of the [place] in the last 14 days. Ebola Screen: Patient negative for fever greater than or equal to 101.5 degrees Fahrenheit, and additional compatible Ebola Virus Disease symptoms Patient denies exposure to infectious person. Patient denies travel to an Ebola-affected area in the 21 days before illness onset. Initial Sepsis Screen: Does the patient meet any 2 criteria? No. Patient's initial sepsis screen is negative. Does the patient have a suspected source of infection? No. Patient's initial sepsis screen is negative. Risk Assessment: Do you want to hurt yourself or someone else? Patient reports no desire to harm self or others. Onset of symptoms was August 24, 2022. 07:46 Method Of Arrival: Ambulatory vg1 07:46 Acuity: POPPY 3 vg1 Triage Assessment: 07:49 General: Appears in no apparent distress. uncomfortable, Behavior is calm, cooperative. vg1 Pain: Denies pain. Neuro: Level of Consciousness is awake, alert, obeys commands, Oriented to person, place, time, situation. Respiratory: Airway is patent Respiratory effort is even, unlabored. GI: Abdomen is round distended, Abd is soft and non tender X 4 quads. Historical: - Allergies: 07:49 No Known Allergies; vg1 - Home Meds: 07:49 furosemide 40 mg Oral tablet 1 tab 2 times per day [Active]; spironolactone 25 mg Oral vg1 tablet 1 tab daily [Active]; - PMHx: 07:49 cirrhosis of liver; diabetes mellitus; Hypertensive disorder; vg1 - PSHx: 07:49 None; vg1 - Immunization history:: Client reports having NOT received the Covid vaccine. - Social history:: Smoking status: Patient denies any tobacco usage or history of. - Family history:: not pertinent. - Hospitalizations: : No recent hospitalization is reported. Screenin:51 [facility] ED Fall Risk Assessment (Adult) History of falling in the last 3 months, vg1 including since admission No falls in past 3 months (0 pts). Abuse screen: Denies threats or abuse. Denies injuries from another. Nutritional screening: No deficits noted. Tuberculosis screening: No symptoms or risk factors identified. Assessment: 07:51 Reassessment: SEE TRIAGE. GI: vg1 09:20 Reassessment: Patient appears in no apparent distress at this time. No changes from vg1 previously documented assessment. Patient and/or family updated on plan of care and expected duration. Pain level reassessed. Patient is alert, oriented x 3, equal unlabored respirations, skin warm/dry/pink. PT TRANSPORTED TO US VIA STRETCHER. 10:05 Reassessment: pt back from US. vg1 10:29 Reassessment: Patient states feeling better. General: Appears comfortable. Pain: Denies ml4 pain. 10:37 Reassessment: Pt up for d/c, currently waiting for IV medication to complete. vg1 Vital Signs: 07:46 BP 151 / 96; Pulse 79; Resp 20; Temp 97.7(O); Pulse Ox 100% ; Weight 81 kg; Height 5 vg1 ft. 8 in. ; Pain 0/10; 08:27 BP 135 / 91; Pulse 70; Resp 20; Pulse Ox 100% on R/A; Pain 0/10; ml4 09:20 BP 131 / 86; Pulse 67; Resp 20; Pulse Ox 100% ; vg1 10:25 BP 144 / 80; Pulse 68; Resp 12; Pulse Ox 100% ; Weight 73 kg; vg1 11:39 BP 145 / 84; Pulse 70; Resp 18; Pulse Ox 98% ; kr3 10:25 Body Mass Index 24.47 (73.00 kg, 172.72 cm) vg1 07:46 Pain Scale: Adult vg1 08:27 Pain Scale: Adult ml4 ED Course: 07:35 Patient arrived in ED. ts1 07:36 Rae Braun RN is Primary Nurse. vg1 07:36 Tyler Day MD is Attending Physician. rn 07:47 Patient has correct armband on for positive identification. Placed in gown. Bed in low ml4 position. Call light in reach. Side rails up X2. Adult w/ patient. Door closed. Head of bed elevated. 07:47 Inserted saline lock: 20 gauge in right forearm, using aseptic technique. ml4 07:49 Triage completed. vg1 07:49 Arm band placed on. vg1 08:28 No provider procedures requiring assistance completed. ml4 09:38 Paracentesis Proc Guidance In Process Unspecified. EDMS 10:28 Patient moved back from ultrasound. ml4 10:29 Patient taken to treatment room. ml4 10:29 No apparent distress. Resting quietly. Awaiting disposition. ml4 11:39 IV discontinued, intact, bleeding controlled, No redness/swelling at site. Pressure kr3 dressing applied. 16:43 Paracentesis Proc Guidance In Process Unspecified. EDMS Administered Medications: 10:35 Drug: Albumin IVPB 25 grams Volume: 100 ml; Route: IVPB; Site: right forearm; ml4 11:40 Follow up: Response: No adverse reaction; IV Status: Completed infusion; IV Intake: [id number] Medication: 07:51 VIS not applicable for this client. vg1 Intake: 11:40 IV: 50ml; Total: 50ml. kr3 Outcome: 10:35 Discharge ordered by . rn 11:11 Condition: good ss 11:11 Discharge instructions given to patient, family, Instructed on discharge instructions, follow up and referral plans. Demonstrated understanding of instructions, follow-up care. 11:39 Discharged to home ambulatory. kr3 11:40 Patient left the ED. kr3 Signatures: Dispatcher [employer] EDMS Tyler Day MD MD rn Blanchard, Shelby, RN RN Rae Najera RN RN vg1 Heather Love RN RN kr3 Danielle Sullivan PAS PAS ts1 ALISSON De PazIII, Karri, RN RN ml4
--- NOTE | 2022-08-24 10:36 | EDPHYS ---
Physician Documentation [facility] Name: Mc Willingham Age: 67 yrs Sex: Male : 1955 Arrival Date: 08/24/2022 Time: 07:33 Bed 5 Private MD: ED Physician Tyler Day HPI: 08/24 07:50 This 67 yrs old Male presents to ER via Ambulatory with complaints of rn Abdominal Pain. 07:50 This 67 yrs old Male presents to ER via Ambulatory with complaints of rn Abdominal distension. 07:50 The patient presents with abdominal distention that is diffuse. Onset: The rn symptoms/episode began/occurred at an unknown time. The symptoms do not radiate. Associated signs and symptoms: Pertinent negatives: blood in stools, chest pain, fever, shortness of breath, vomiting, vomiting blood. The symptoms are described as achy. Modifying factors: The symptoms are alleviated by nothing, the symptoms are aggravated by nothing. Severity of pain: At its worst the pain was moderate in the emergency department the pain is unchanged. The patient has experienced similar episodes in the past. The patient has been recently seen by a physician:. Pt reports here yesterday, was offered paracentesis, declined and chose to come today for scheduled paracentesis. Dr. Tran spoke with Dr. Ordonez, radiology, and confirmed paracentesis for this morning at 0800. Patient without other acute complaints. . Historical: - Allergies: 07:49 No Known Allergies; vg1 - Home Meds: 07:49 furosemide 40 mg Oral tablet 1 tab 2 times per day [Active]; spironolactone 25 mg Oral vg1 tablet 1 tab daily [Active]; - PMHx: 07:49 cirrhosis of liver; diabetes mellitus; Hypertensive disorder; vg1 - PSHx: 07:49 None; vg1 - Immunization history:: Client reports having NOT received the Covid vaccine. - Social history:: Smoking status: Patient denies any tobacco usage or history of. - Family history:: not pertinent. - Hospitalizations: : No recent hospitalization is reported. ROS: 07:50 Constitutional: Negative for fever, chills, and weight loss, Cardiovascular: Negative rn for chest pain, palpitations, and edema, Respiratory: Negative for shortness of breath, cough, wheezing, and pleuritic chest pain, Abdomen/GI: + abd distension Back: Negative for injury and pain, MS/Extremity: Negative for injury and deformity, Neuro: Negative for headache, weakness, numbness, tingling, and seizure. Exam: 07:50 Constitutional: Thin male, with abd distension, ambulatory without assistance. hospice rn: Regular rate and rhythm. No pulse deficits. Abdomen/GI: + abd distension, tense abdomen with fluid wave and umbilical hernia that is reducible, no peritoneal signs. Vital Signs: 07:46 BP 151 / 96; Pulse 79; Resp 20; Temp 97.7(O); Pulse Ox 100% ; Weight 81 kg; Height 5 vg1 ft. 8 in. ; Pain 0/10; 08:27 BP 135 / 91; Pulse 70; Resp 20; Pulse Ox 100% on R/A; Pain 0/10; ml4 09:20 BP 131 / 86; Pulse 67; Resp 20; Pulse Ox 100% ; vg1 10:25 BP 144 / 80; Pulse 68; Resp 12; Pulse Ox 100% ; Weight 73 kg; vg1 11:39 BP 145 / 84; Pulse 70; Resp 18; Pulse Ox 98% ; kr3 10:25 Body Mass Index 24.47 (73.00 kg, 172.72 cm) vg1 07:46 Pain Scale: Adult vg1 08:27 Pain Scale: Adult ml4 MDM: 07:36 Patient medically screened. rn 07:53 ED course: Pt states last paracentesis 1 month ago, getting closer to each other. . rn 10:34 Differential diagnosis: ascites, cirrhosis. Data reviewed: vital signs, nurses notes, rn old medical records, and as a result, I will discharge patient. Care significantly affected by the following chronic conditions: cirrhosis, ascites. Counseling: I had a detailed discussion with the patient and/or guardian regarding: the historical points, exam findings, and any diagnostic results supporting the discharge/admit diagnosis, the need for outpatient follow up, to return to the emergency department if symptoms worsen or persist or if there are any questions or concerns that arise at home. Response to treatment: the patient's symptoms have markedly improved after treatment, and as a result, I will discharge patient. Special discussion: I discussed with the patient/guardian in detail that at this point there is no indication for admission to the hospital. It is understood, however, that if the symptoms persist or worsen the patient needs to return immediately for re-evaluation. 08/24 08:28 Order name: Paracentesis Proc Guidance [facility] 08/24 07:42 Order name: IV Start; Complete Time: 07:52 rn Administered Medications: 10:35 Drug: Albumin IVPB 25 grams Volume: 100 ml; Route: IVPB; Site: right forearm; ml4 11:40 Follow up: Response: No adverse reaction; IV Status: Completed infusion; IV Intake: [id number] Disposition Summary: 08/24/22 10:35 Discharge Ordered Location: Home rn Problem: chronic rn Symptoms: have improved rn Condition: Stable rn Diagnosis - Other ascites rn Followup: rn - With: Private Physician - When: As needed - Reason: Recheck today's complaints, Re-evaluation by your physician Discharge Instructions: - Discharge Summary Sheet rn - Ascites rn Forms: - Medication Reconciliation Form rn - Thank You Letter rn - Antibiotic brand marketing intern - Prescription Opioid Use rn Signatures: Dispatcher [employer] [facility] Tyler Day MD MD rn Garcia, Victoria, RN RN vg1 Zandra, ALISSONIII, Karri, ALISSON RN ml4 Heather Love RN kr3
[2022-08-24] MEDS ORDERED: ALBUMIN HUMAN 25% 100 ML IV ONE (10:40)
--- NOTE | 2022-08-24 11:34 | RAD REPORT ---
EXAM DESCRIPTION: US - Paracentesis Proc Guidance - 08/24/2022 11:02 am CLINICAL HISTORY: ASCITES Ascites COMPARISON: Paracentesis Proc Guidance dated 10/15/2021 FINDINGS: Informed consent was obtained and time-out was performed. Patient's abdomen was prepped and draped in the usual sterile fashion. 1% lidocaine was used for loca l anesthetic purposes. A small skin incision was made. A paracentesis catheter was guided into the peroneal cavity under son ographic guidance. 7 liters approximately were obtained of fluid. The patient tolerated the procedure well. IMPRESSION: Successful ultrasound-guided paracentesis.
[2022-08-24 11:59] VITALS: TEMP 97.7
[2022-08-24 12:09] VITALS: BP 145/84; O2SAT 98
== END 2022-08-24 11:40 | disposition home or self-care (01) ==
LOC: ER 07:33
PROC: 0W9G3ZZ Drainage of Peritoneal Cavity, Percutaneous Approach (ICD-10-PCS; principal; 2022-08-24)
DX: R18.8 Other ascites (principal)
CPT/HCPCS: 49083; 96365; 99285; P9047

== ENCOUNTER 2022-09-17 12:21 | Emergency (ER) | payer SELFPAY ==
--- OUTSIDE RECORDS SUMMARY | 2022-09-17 12:28 | XMS REPORT | Continuity of Care Document ---
:1955 Author Organization [facility] t Address [address] [place] [address] [address] [place] [address] Care Team Providers Name Role Phone SAIRA NAVARRETE Kobi Primary Care Physician Unavailable LEILA CHAPMAN Attending Clinician Unavailable MIKE COPPOLA Attending Clinician Unavailable Mike Pulido Attending Clinician Leila Chapman MD Attending Clinician Doctor Unassigned, [place] Attending Clinician Unavailable JOSÉ MIGUEL HUMPHRIES Attending [...] Clinician MIKE HOFFMAN Attending Clinician Unavailable Mike Hofmfan MD Attending Clinician ALISHA CHA Attending Clinician [...] Number Effective Date Expiration Date S ource MEDICAID SSI PENDING 2022 2022 PENDING 00:00:00 00:00:00 Problems Condition Condition Condition Status Onset Resolution Last Treating Co mments Source Name Details Category Date Date Treatment Clinician Date Chronic Chronic Disease Active Univers hepatitis hepatitis 3-30 it[place] of C without C without [place] hepatic hepatic 00 Medical coma coma Branch 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 00:00: [place] disease disease 00 Medical Branch Ascites Ascites Disease Active 2021-03 Univers 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 [place]y of alcoholic alcoholic 00:[place] cirrhosis cirrhosis 00 Medi rosario Branch Alcoholic Alcoholic Disease Active 2021-03 Uni vers cirrhosis cirrhosis 0-18 ity of of liver of liver 00:00: [place] with with 00 Medical ascites ascites Branch 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 liver 9-30 ity of 00:00: [place] 00 Medical Branch Tense Tense Disease Active Univers ascites ascites 9-30 ity of 00:00: [place] 00 Medical Branch No known No known Disease Unive rs active active ity of problems problems [place] [facility] Allergies, Adverse Reactions, Alerts Allergy Allergy Status Severity Reaction(s) Onset Inactive Treating Comm ents Source Name Type Date Date Clinician NO KNOWN Drug Active Univers ALLERGIE Class ity of S [place] [facility] Social History Social Habit Start Date Stop Date Quantity Comments Source History SDOH Social Unive rsity of Connections [facility] Med ical Together Branch History SDOH Social Unive rsity of Connections [facility] Medical Branch History SDOH Social Unive rsity of Connections [place] [facility] Membership Branch History SDOH Social Unive rsity of Connections [place] [facility] Meetings Branch History of tobacco Cigarette Smoker University of use [facility] Branch Exposure to 2022-05-26 2022-06-05 Not sure University of SARS-CoV-2 (event) 00:00:00 06:46:00 [facility] Branch Alcohol intake 2022-06-05 2022-06-05 Current drinker Unive rsity of 00:00:00 00:00:00 of alcohol [place] [facility] (finding) Branch History SDOH 2022-04-11 2022-04-11 1 University o f Alcohol Frequency 00:00:00 00:00:00 [facility] edical Branch History SDOH 2022-04-11 2022-04-11 0 University o f Alcohol Std Drinks 00:00:00 00:00:00 [place] [facility] History SDOH 2022-04-11 2022-04-11 1 University o f Alcohol Binge 00:00:00 00:00:00 [place] Medic al Branch History SDOH Social 2022-04-11 2022-04-11 5 Unive rsity of Connections Phone 00:00:00 00:00:00 [place] M edical Branch History SDOH Social 2022-04-11 2022-04-11 6 Unive rsity of Connections Living 00:00:00 00:00:00 [place] [facility] History SDOH 2022-04-11 2022-04-11 0 University o f Physical Activity 00:00:00 00:00:00 [facility] edical DPW Branch History SDNV 2022-04-11 2022-04-11 0 University o f Physical Activity 00:00:00 00:00:00 [facility] edical MPS Branch History SDOH 2022-04-11 2022-04-11 5 University o f Financial 00:00:00 00:00:00 [place] [facility] History SDOH Food 2022-04-11 2022-04-11 1 Univers ity of Worry 00:00:00 00:00:00 [place] [facility] History SDOH Food 2022-04-11 2022-04-11 1 Univers ity of Scarcity 00:00:00 00:00:00 [place] [facility] History SDNV 2022-04-11 2022-04-11 2 University o f Transport Med 00:00:00 00:00:00 [place] [facility] al [facility] History [facility] 2022-04-11 2022-04-11 2 [place] o f Transport Non[facility]Med 00:00:00 [facility] Tobacco use and 2021-12-07 2021-12-07 Smokeless Universit y of exposure 00:00:00 00:00:00 tobacco non-user [facility] [place] [facility] dical Branch Education 2021-12-07 2021-12-07 14 University of 00:00:00 00:00:00 [facility] Tobacco Comment 2021-12-07 2021-12-07 Quit 3-4 years Unive rsity of 00:00:00 00:00:00 [facility] Sex [birth year] At [birth year] Universit y of 00:00:00 00:00:00 [facility] Smoking Status Start Date Stop Date Source Tobacco smoking [facility] [place] consumption unknown Medical Bran ch Ex-smoker 2021-12-07 00:00:00 2021-12-07 University o f [place] 00:00:00 Medical Branch Medications Ordered Filled Start Stop Current Ordering Indication Dosage Frequency Signature Comments Components Source Medication Medication Date Date Medication? Clinician (SIG) Name Name pantoprazol Yes 40mg Take 1 Univ ers e 40 mg EC 3-30 tablet by ity of tablet 14:07: mouth in [place] 56 the Medical morning Branch and 1 tablet in the evening. pantoprazol 2023-0 Yes 40mg Take 1 Univ ers e 40 mg EC 3-30 tablet by ity of tablet 14:07: mouth in [place] [address] the Medical morning Branch and 1 tablet in the evening. pantoprazol 2023-0 Yes 40mg Take 1 Univ ers e 40 mg EC 3-30 tablet by ity of tablet 14:07: mouth in [place] [address] the Medical morning Branch and 1 tablet in the evening. pantoprazol 2023-0 Yes 40mg Take 1 Univ ers e 40 mg EC 3-30 tablet by ity of tablet 14:07: mouth in [place] [address] the Medical morning Branch and 1 tablet in the evening. furosemide 2023-0 Yes 40mg Take 1 Unive rs 40 mg 3-30 tablet by ity of tablet 00:00: mouth [place] 00 every Medical morning Branch and evening. lactulose 2023-0 Yes [id number] 30mL Take 30 mL Univers 10 gram/15 3-30 by mouth ity o f mL solution 00:00: in the morning. Medical Branch sulfamethox 2023-0 Yes [id number] 1{tbl} Take 1 Univers azole-trime 3-30 tablet by ity of thoprim 00:00: mouth in [place] (BACTRI) 00 the Medical 400-80 mg morning. Branch per tablet spironolact 2023-0 Yes 200mg Take 8 Uni vers one 25 mg 3-30 tablets by ity of tablet 00:00: mouth in [place] 00 the Medical morning. Branch furosemide 2023-0 Yes 40mg Take 1 Unive rs 40 mg 3-30 tablet by ity of tablet 00:00: mouth [place] 00 every Medical morning Branch and evening. lactulose 2023-0 Yes [id number] 30mL Take 30 mL Univers 10 gram/15 3-30 by mouth ity o f mL solution 00:00: in the [facility] 00 morning. Medical Branch sulfamethox 2023-0 Yes [id number] 1{tbl} Take 1 Univers azole-trime 3-30 tablet by ity of thoprim 00:00: mouth in [place] (BACTRIM) 00 the Medical 400-80 mg morning. Branch per tablet spironolact 2023-0 Yes 200mg Take 8 Uni vers one 25 mg 3-30 tablets by ity of tablet 00:00: mouth in [place] 00 the Medical morning. Branch furosemide 3-0 Yes 40mg Take 1 Unive rs 40 mg 3-30 tablet by ity of tablet 00:00: mouth [place] every Medical morning Branch and evening. lactulose 3-0 Yes [id number] 30mL Take 30 mL Univers 10 gram/15 3-30 by mouth ity o f mL solution 00:00: in the morning. Medical Branch sulfamethox 2022-0 Yes [id number] 1{tbl} Take 1 Univers azole-trime 3-30 tablet by ity of thoprim 00:00: mouth in [place] (BACTRIM) 00 the Medical 400-80 mg morning. Branch per tablet spironolact 2022-0 Yes 200mg Take 8 Uni vers one 25 mg 3-30 tablets by ity of tablet 00:00: mouth in [place] the Medical morning. Branch furosemide 2022-0 Yes 40mg Take 1 Unive rs 40 mg 3-30 tablet by ity of tablet 00:00: mouth [place] every Medical morning Branch and evening. lactulose 2022-0 Yes [id number] 30mL Take 30 mL Univers 10 gram/15 3-30 by mouth ity o f mL solution 00:00: in the morning. Medical Branch sulfamethox 2022-0 Yes [id number] 1{tbl} Take 1 Univers azole-trime 3-30 tablet by ity of thoprim 00:00: mouth in [place] (BACTRIM) 00 the Medical 400-80 mg morning. Branch per tablet spironolact 3-0 Yes 200mg Take 8 Uni vers one 25 mg 3-30 tablets by ity of tablet 00:00: mouth in [place] 00 the Medical morning. Branch traMADoL 50 2022-0 Yes [id number] 50mg Take 1 Univ ers mg tablet 3-29 tablet by ity o f 00:00: mouth [place] 00 every 8 Medical (eight) Branch hours as needed for Pain (scale 1-3). Indication s: acute pain traMADoL 50 2023-0 Yes [id number] 50mg Take 1 Univ ers mg tablet 3-29 tablet by ity o f 00:00: mouth [place] [address] every 8 Medical (eight) Branch hours as needed for Pain (scale 1-3). Indication s: acute pain traMADoL 50 2023-0 Yes [id number] 50mg Take 1 Univ ers [...] 1-3). Indication s: acute pain traMADoL 50 0 Yes 4647 50mg Take [...] (scale 1-3). Indication s: acute pain albumin 0 2022- No 25g 25 g, IV Unive rs (ALBUMINAR 05-31 03-25 Infusion, ity of 25%) 25 % 22:08: 00:02 ONCE, 1 [place] injection 00 :[place] dose, On Medica l 25 g Fri Branch 05/31/22 at 1715, 100 mL
Marge cation: HEPATORENA L SYNDROME (DIAGNOSIS )
Comme nts: Dosin-8 g/L of ascitic fluid removed lactulose Yes [id number] 30mL Take 30 mL Univers 10 gram/15 3-24 by mouth ity o f mL oral 00:00: in the [place] solution 00 morning. Medical Branch lactulose 0 Yes [id number] 30mL Take 30 mL Univers 10 gram/15 3-24 by mouth ity o f mL oral 00:00: in the [place] solution 00 morning. Medical Branch lactulose 0 Yes [id number] 30mL Take 30 mL Univers 10 gram/15 3-24 by mouth ity o f mL oral 00:00: in the [place] solution 00 morning. Medical Branch lactulose 2022-0 2022- No [id number] 30mL Take 30 mL Univers 10 gram/15 3-24 03-30 by mouth ity of mL oral 00:00: 00:00 in the [place] solution 00 :00 morning. Medical Branch lactulose 2022-0 2022- No [id number] 30mL Take 30 mL Univers 10 gram/15 05-3130 by mouth ity of mL oral 00:00: 00:00 in the [place] solution 00 :00 morning. Medical Branch lactulose 2022-0 2022- No [id number] 30mL Take 30 mL Univers 10 gram/15 05-31 by mouth ity of mL oral 00:00: 00:00 in the [place] solution 00 :00 morning. Medical Branch pantoprazol 2022-0 Yes 40mg Take 40 mg Univers e 40 mg EC 2-02 by mouth ity o f tablet 17:45: in the [place] [address] morning Medical and 40 mg Branch in the evening. pantoprazol 2022-0 Yes 40mg Take 40 mg Univers e 40 mg EC 2-02 by mouth ity o f tablet 17:45: in the [place] [address] morning Medical and 40 mg Branch in the evening. pantoprazol 3-0 Yes 40mg Take 40 mg Univers e 40 mg EC 2-02 by mouth ity o f tablet 17:45: in the [place] [address] morning Medical and 40 mg Branch in the evening. pantoprazol 3-0 Yes 40mg Take 40 mg Univers e 40 mg EC 2-02 by mouth ity o f tablet 17:45: in the [place] [address] morning Medical and 40 mg Branch in the evening. cefTRIAXone 2022- No 2000mg 2,000 mg, Univers (ROCEPHIN) 04-1109 Intravenou it y of 2,000 mg in [...] br>Duratio n of Therapy: 7 days albumin 2022-2022- No 12.5g 12.5 g, IV Un piedad (ALBUMINAR 04-11 Infusion, ity of 25%) 25 % 15:30: 19:38 ONCE, 1 [place] injection 00 :[place] dose, On Medica l 12.5 g Fri04/11/22 Branch at 0930, 100 mL
Marge cation: HEPATORENA L SYNDROME (DIAGNOSIS )
Comme nts: Dosin-8 g/L of ascitic fluid removed furosemide 2022- No 40mg Take 40 mg Univers 40 mg 04-11 by mouth ity of tablet 15:02: 00:00 every [place] 42 :00 morning Medical and Branch evening. spironolact 2022- No 25mg Take 25 mg Univers one 04-11 by mouth ity of (ALDACTONE) 15:02: 00:00 in the [facility] as 25 mg 42 :00 morning. Medical [...] dose [place] tablet 00 on Fri Medical 40 mg 04/11/22 at Branch 0800, Until Discontinu ed, Routine acetaminoph Yes 650mg 650 mg, Un piedad en 04-11 Oral, ity of (TYLENOL) 02:53: Q6HPRN, [place] tablet 650 20 Starting Medic al mg on Fri04/10/22 at 2052, Until Discontinu ed, Routine, Pain (scale 1-3) sulfamethox 2022-0 2022- No [id number] 1{tbl} Take 1 Univers azole-trime 04-11 03 tablet by i ty of thoprim 00:00: 05:59 mouth in [place] (BACTRIM 00 :00 the Medical DS) 800-160 morning Branc h mg per for 30 tablet days. furosemide 2022-0 2022- No [id number] 40mg Take 1 Univers 40 mg 04-11 tablet by ity of tablet 00:00: 05:59 mouth [place] 00 :00 every Medical morning Branch and evening for 30 days. spironolact 2022-0 2022- No [id number] 200mg Take 2 Univers one 04-11 78054 tablets by ity of (ALDACTONE) 00:00: 05:59 [place] 100 mg 00 :00 the Medical tablet morning Branch for 30 days. furosemide 2022-0 3- No 40mg Take 1 Univ ers 40 mg 03-20 tablet by ity of tablet 00:00: 00:00 mouth. [place] 00 :00 Medical Branch spironolact 3-0 2023- No 25mg Take 1 Uni vers one 25 mg 03-20 tablet by ity of tablet 00:00: 00:00 mouth. [place] 00 :00 Medical Branch furosemide 2022-0 2023- No 40mg Take 1 Univ ers 40 mg 03-2030 tablet by ity of tablet 00:00: 00:00 mouth. [place] 00 :00 Medical Branch spironolact 3-0 2023- No 25mg Take 1 Uni vers one 25 mg 03-2030 tablet by ity of tablet 00:00: 00:00 mouth. [place] 00 :00 Medical Branch furosemide 2022-0 3- No 40mg Take 1 Univ ers 40 mg 03-20 tablet by ity of tablet 00:00: 00:00 mouth. [place] 00 :00 Medical Branch spironolact 3-0 2023- No 25mg Take 1 Uni vers one 25 mg 03-2030 tablet by ity of tablet 00:00: 00:00 mouth. [place] 00 :00 Medical Branch furosemide 2021- Yes 40mg Take 40 mg U nivers 40 mg 0-21 by mouth ity of tablet 13:09: every [place] [address] morning Medical and Branch evening. furosemide 2021-03 Yes 40mg Take 40 mg U nivers 40 mg 0-21 by mouth ity of tablet 13:09: every [place] [address] morning Medical and Branch evening. furosemide 2021-03 Yes 40mg Take 40 mg U nivers 40 mg 0-21 by mouth ity of tablet 13:09: every [place] [address] morning Medical and Branch evening. furosemide 2021-1 Yes 40mg Take 40 mg U nivers 40 mg 0-21 by mouth ity of tablet 13:09: every [place] [address] morning Medical and Branch evening. furosemide 2021-1 Yes 40mg Take 40 mg U nivers 40 mg 0-21 by mouth ity of tablet 13:09: every [place] [address] morning Medical and Branch evening. furosemide 2021-1 Yes 40mg Take 40 mg U nivers 40 mg 0-21 by mouth ity of tablet 13:09: every [place] [address] morning Medical and Branch evening. furosemide 2021- Yes 40mg Take 40 mg U nivers 40 mg 0-21 by mouth ity of tablet 13:09: every [place] [address] morning Medical and Branch evening. furosemide 2021- Yes 40mg Take 40 mg U nivers 40 mg 0-21 by mouth ity of tablet 13:09: every [place] [address] morning Medical and Branch evening. furosemide 2021- Yes 40mg Take 40 mg U nivers 40 mg 0-21 by mouth ity of tablet 13:09: every [place] [address] morning Medical and Branch evening. furosemide 2021- Yes 40mg Take 40 mg U nivers 40 mg 0-21 by mouth ity of tablet 13:09: every [place] [address] morning Medical and Branch evening. furosemide 2021- Yes 40mg Take 40 mg U nivers 40 mg 0-21 by mouth ity of tablet 13:09: every [place] [address] morning Medical and Branch evening. pantoprazol 2021- Yes 40mg Take 40 mg Univers e 40 mg EC 0-21 by mouth ity o f tablet 13:09: in the [place] [address] morning Medical and 40 mg Branch in the evening. pantoprazol 2021-1 Yes 40mg Take 40 mg Univers e 40 mg EC 0-21 by mouth ity o f tablet 13:09: in the [place] [address] morning Medical and 40 mg Branch in the evening. pantoprazol 2022-1 Yes 40mg Take 40 mg Univers e 40 mg EC 0-21 by mouth ity o f tablet 13:09: in the [place] [address] morning Medical and 40 mg Branch in the evening. pantoprazol 2021-1 Yes 40mg Take 40 mg Univers e 40 mg EC 0-21 by mouth ity o f tablet 13:09: in the [place] [address] morning Medical and 40 mg Branch in the evening. pantoprazol 2021-03 Yes 40mg Take 40 mg Univers e 40 mg EC 0-21 by mouth ity o f tablet 13:09: in the [place] [address] morning Medical and 40 mg Branch in the evening. pantoprazol 2021-03 Yes 40mg Take 40 mg Univers e 40 mg EC 0-21 by mouth ity o f tablet 13:09: in the [place] [address] morning Medical and 40 mg Branch in the evening. pantoprazol 2021-03 Yes 40mg Take 40 mg Univers e 40 mg EC 0-21 by mouth ity o f tablet 13:09: in the [place] [address] morning Medical and 40 mg Branch in the evening. pantoprazol 2021-03 Yes 40mg Take 40 mg Univers e 40 mg EC 0-21 by mouth ity o f tablet 13:09: in the [place] [address] morning Medical and 40 mg Branch in the evening. pantoprazol 2021-03 Yes 40mg Take 40 mg Univers e 40 mg EC 0-21 by mouth ity o f tablet 13:09: in the [place] [address] morning Medical and 40 mg Branch in the evening. pantoprazol 2021-03 Yes 40mg Take 40 mg Univers e 40 mg EC 0-21 by mouth ity o f tablet 13:09: in the [place] [address] morning Medical and 40 mg Branch in the evening. pantoprazol 2021-03 Yes 40mg Take 40 mg Univers e 40 mg EC 0-21 by mouth ity o f tablet 13:09: in the [place] [address] morning Medical and 40 mg Branch in the evening. albumin 2021-03 202- No [id number] 50g 50 g, IV Univers (ALBUMINAR 0-21 [...] 00 First dose Med ical mg on [facility] 12/26/21 at 0900, Until Discontinu ed, Routine docusate 2021-03 Yes 100mg 100 mg, Unive rs (COLACE) 0-19 Oral, BID, ity o f capsule 100 01:00: First dose [place] mg 00 on [facility] 12/25/21 Branch at 2000, Until Discontinu [...] First dose Medical (HumaLOG) + on Fri [facility] 12/25/21 Testing at 1700, Until Discontinu ed, Routine enoxaparin 2021-03 Yes 30mg 30 mg, Unive rs (LOVENOX) 0-18 Subcutaneo ity of injection 22:00: [place], [place]ILY, [place] 30 mg 00 First dose Medical on Fri Branch 12/25/21 at 1700, Until Discontinu ed, Routine glucagon 2021-03 Yes 1mg 1 mg, Univers (GLUCAGEN 0-18 Intramuscu ity of DIAGNOSTIC 21:33: [place], PRN, [place] KIT) 19 Starting Medical injection 1 on [facility] 12/25/21 at 1633, Until Discontinu ed, NAYAN, Blood Glucose < or = 70 mg/dL and patient is unable to swallow or has mental changes. dextrose 50 2021-03 Yes 25mL 25 mL, Univ ers % in water 0-18 Slow IV ity of (D50W) 21:33: Push, PRN, [place] injection 19 Starting Medica l 25 mL on Fri [place] 12/25/21 at 1633, Until Discontinu ed, NAYAN, Blood Glucose < or = 70 mg/dL and patient is unable to swallow or has mental status changes. ondansetron 2021-03 Yes 4mg 4 mg, Slow Univers (ZOFRAN 0-18 IV Push, ity of (PF)) 21:33: Q6HPRN, [place] injection 4 11 Starting Medi rosario mg on [facility] Branch 12/25/21 at 1633, Until Discontinu ed, Routine, Nausea and Vomiting (N/V) acetaminoph 2021-03 Yes 650mg 650 mg, Un piedad en 0-18 Oral, ity of (TYLENOL) 21:32: Q6HPRN, [place] tablet 650 53 Starting Medic al mg on [facility] Branch 12/25/21 at 1632, Until Discontinu ed, Routine, Pain (scale 1-3) pantoprazol 2021-03 Yes 40mg Take 40 mg Univers e 40 mg EC 0-02 by mouth ity o f tablet 16:36: in the [place] 06 morning Medical and 40 mg Branch in the evening. furosemide 2021-03 Yes 40mg Take 40 mg U nivers 40 mg 0-02 by mouth ity of tablet 16:36: every [place] [address] morning Medical and Branch evening. pantoprazol 2021-03 Yes 40mg Take 40 mg Univers e 40 mg EC 0-02 by mouth ity o f tablet 16:36: in the [place] [address] morning Medical and 40 mg Branch in the evening. furosemide 2021-03 Yes 40mg Take 40 mg U nivers 40 mg 0-02 by mouth ity of tablet 16:36: every [place] [address] morning Medical and Branch evening. spironolact 2021-03- No 25mg Take 25 mg Univers one 25 mg 0-02 1002 by mouth ity o f tablet 13:32: 00:00 in the [place] 31 :00 morning Medical and 25 mg Branch in the evening. spironolact 2021-03- No [id number] 25mg Take 1 Univers one 25 mg 0-02 11-02 tablet by ity of tablet 00:00: 04:59 mouth in [place] 00 :00 the Medical morning Branch for 30 days. spironolact 2021-03- No [id number] 25mg Take 1 Univers one 25 mg 0-02 11-02 tablet by ity of tablet 00:00: 04:59 mouth in [place] 00 :00 the Medical morning Branch for 30 days. spironolact 2021-03- No [id number] 25mg Take 1 Univers one 25 mg 0-02 11-02 tablet by ity of tablet 00:00: 04:59 mouth in [place] 00 :00 [facility] for 30 days. spironolact 2021-03- No [id number] 25mg Take 1 Univers one 25 mg 001-09 tablet by ity of tablet 00:00: 04:59 mouth in [place] 00 :00 [facility] for 30 days. midodrine 2021-03 Yes 5mg 5 mg, Univers (PROAMATINE 0-01 Oral, TID, it y of ) tablet 5 19:00: First dose [place] mg 00 on [facility] 12/08/21 at Branch 1400, Until Discontinu ed, Routine foLIC acid 2021-03- No 1mg 1 mg, Unive rs (FOLATE) 012-08 Oral, ity of tablet 1 mg 16:15: 17:09 ONCE, 1 [place] 00 :[place] dose, On [facility] 12/08/21 at 1115, Routine thiamine 2021-03 Yes 100mg 100 mg, Unive rs (VITAMIN 0-01 Oral, ity of B1) tablet 15:30: DAILY, [place] 100 mg 00 First dose Medical on [facility] 12/08/21 at 1030, Until Discontinu ed, Routine furosemide 2021-03 Yes 40mg 40 mg, Unive rs (LASIX) 0- Oral, ity of tablet 40 14:00: DAILY, [place] mg 00 First dose Medical on [facility] 12/08/21 at 0900, Until Discontinu ed, Routine spironolact 2021-03- No 100mg 100 mg, U nivers one 012-08 Oral, ity of (ALDACTONE) 14:00: 15:45 DAILY, [place] tablet 100 00 :15 First dose Med ical mg on [facility] 12/08/21 at 0900, Until Discontinu ed, Routine traMADoL 2021-03 Yes 50mg 50 mg, Univers (ULTRAM) 0-01 Oral, ity of tablet 50 10:49: Q6HPRN, [place] mg 22 Starting Medical on [facility] 12/08/21 at 0549, Until Discontinu ed, Routine, [...] Until Discontinu ed, Routine albumin 2021- No [id number] 25g 25 g, IV Univers (ALBUMINAR 12-07 Infusion, ity of 25%) 25 % 20:15: 02:01 [place]CE, 1 [place] :[place] dose, On Medica l 25 g Fri Branch 12/07/21 at 1515, 100 mL
Marge cation: HEPATORENA L SYNDROME (DIAGNOSIS )
Comme nts: Dosin-8 g/L of ascitic fluid removed furosemide 2021- No [id number] 40mg 40 mg, Univers (LASIX) 12-07 Slow [...] 9-16 medication it y of 13:38: s [address] No known No No known Unive rs medications 8-11 medication it y of 11:47: s [address] No known No No known Unive rs medications 8-11 medication it y of 11:47: [address] No known No No known Unive rs medications 8-11 medication it y of 11:47: [address] Vital Signs Vital Name Observation Time Observation Value Comments Source Systolic blood 2022-08-12 16:30:00 124 mm[Hg] Univer sity of pressure [place] [facility] Diastolic blood 2022-08-12 16:30:00 67 mm[Hg] Unive rsity of pressure [place] [facility] Heart rate 2022-08-12 16:30:00 66 /min Universi ty of [place] [facility] Respiratory rate 2022-08-12 16:30:00 17 /min Univ ersity of [place] [facility] Oxygen saturation in 2022-08-12 16:30:00 99 /min University of Arterial blood by [place] Hyper Wear rosario Pulse oximetry Branch Body temperature 2022-08-12 15:05:00 37 Sh[place]nam Univ ersity of [place] [facility] Body weight 2022-08-12 15:05:00 80.287 kg Universi ty of [place] [facility] BMI 2022-08-12 15:05:00 26.91 kg/m2 Universi ty of [place] [facility] Systolic blood 2022-06-06 19:06:00 120 mm[Hg] Univer sity of pressure [place] [facility] Diastolic blood 2022-06-06 19:06:00 79 mm[Hg] Unive rsity of pressure [place] [facility] Heart rate 2022-06-06 19:06:00 78 /min Universi ty of [place] [facility] Body temperature 2022-06-06 19:06:00 36.17 Sh[place]nam Univ ersity of [place] [facility] Body height 2022-06-06 19:06:00 172.7 cm Universi ty of [place] [facility] Body weight 2022-06-06 19:06:00 80.513 kg Universi ty of [place] [facility] BMI 2022-06-06 19:06:00 26.99 kg/m2 Universi ty of [place] [facility] Oxygen saturation in 2022-06-06 19:06:00 99 /min University of Arterial blood by [place] Hyper Wear rosario Pulse oximetry Branch Systolic blood 2022-06-05 14:00:00 125 mm[Hg] Univer sity of pressure [place] [facility] Diastolic blood 2022-06-05 14:00:00 74 mm[Hg] Unive rsity of pressure [place] [facility] Heart rate 2022-06-05 14:00:00 80 /min Universi ty of [place] [facility] Respiratory rate 2022-06-05 14:00:00 18 /min Univ ersity of [place] [facility] Oxygen saturation in 2022-06-05 14:00:00 99 /min University of Arterial blood by [facility] Pulse oximetry Branch Body temperature 2022-06-05 11:46:00 35.72 Shabnam Univ ersity of [place] [facility] Body weight 2022-06-05 11:46:00 85.276 kg Universi ty of [place] [facility] BMI 2022-06-05 11:46:00 28.59 kg/m2 Universi ty of [place] [facility] Systolic blood 2022-06-01 00:00:00 140 mm[Hg] [facility] [place] [facility] Diastolic blood 2022-06-01 00:00:00 99 mm[Hg] [facility] [place] [facility] Heart rate 2022-06-01 00:00:00 74 /min [facility] [place] [facility] Respiratory rate 2022-06-01 00:00:00 18 /min [facility] [place] [facility] Oxygen saturation in 2022-06-01 00:00:00 100 /min [facility] of Arterial blood by [facility] Pulse oximetry Branch Body temperature 2022-05-31 18:57:45 36.33 Shabnam [facility] [place] [facility] Body weight 2022-05-31 18:43:00 85.276 kg [facility] [place] [facility] BMI 2022-05-31 18:43:00 28.59 kg/m2 [facility] [place] [facility] Systolic blood 2022-04-11 22:07:00 156 mm[Hg] [facility] [place] [facility] Diastolic blood 2022-04-11 22:07:00 94 mm[Hg] [facility] [place] [facility] Heart rate 2022-04-11 22:07:00 78 /min [facility] [place] [facility] Body temperature 2022-04-11 22:07:00 36.39 Shabnam [facility] [place] [facility] Respiratory rate 2022-04-11 22:07:00 19 /min [facility] [place] [facility] Oxygen saturation in 2022-04-11 22:07:00 100 /min [facility] Arterial blood by [facility] Pulse oximetry Branch Body height 2022-04-11 02:52:00 172.7 cm [facility] [place] [facility] Body weight 2022-04-11 02:52:00 88.451 kg [facility] [place] [facility] BMI 2022-04-11 02:52:00 29.65 kg/m2 [facility] [place] [facility] Systolic blood 2022-03-27 21:30:00 140 mm[Hg] [facility] [place] [facility] Diastolic blood 2022-03-27 21:30:00 83 mm[Hg] [facility] [place] [facility] Heart rate 2022-03-27 21:30:00 68 /min [facility] [place] [facility] Respiratory rate 2022-03-27 21:30:00 13 /min [facility] [place] [facility] Oxygen saturation in 2022-03-27 21:30:00 100 /min [facility] [place] [facility] P[facility]xim[facility] Body temperature 2022-03-27 18:33:00 36.89 Shabnam [facility] [place] [facility] Body height 2022-03-27 18:33:00 172.7 cm [facility] [place] [facility] Body weight 2022-03-27 18:33:00 88.451 kg [facility] [place] [facility] BMI 2022-03-27 18:33:00 29.65 kg/m2 [facility] [place] [facility] Body weight 2022-03-12 17:50:00 87.544 kg [facility] [place] [facility] BMI 2022-03-12 17:50:00 29.35 kg/m2 [facility] [place] [facility] Systolic blood 2022-03-12 17:39:00 130 mm[Hg] [facility] [place] [facility] Diastolic blood 2022-03-12 17:39:00 83 mm[Hg] [facility] [place] [facility] Heart rate 2022-03-12 17:39:00 71 /min [facility] [place] [facility] Body temperature 2022-03-12 17:39:00 36.61 Shabnam [facility] [place] [facility] Respiratory rate 2022-03-12 17:39:00 22 /min [facility] [place] [facility] Body height 2022-03-12 17:39:00 172.7 cm [facility] [place] [facility] Oxygen saturation in 2022-03-12 17:39:00 100 /min [facility] [place] [facility] P[facility] oxim[facility] Systolic blood 2022-02-27 22:01:00 153 mm[Hg] [facility] [place] [facility] Diastolic blood 2022-02-27 22:01:00 85 mm[Hg] [facility] [place] [facility] Heart rate 2022-02-27 22:01:00 81 /min [facility] [place] [facility] Respiratory rate 2022-02-27 22:01:00 16 /min [facility] [place] [facility] Oxygen saturation in 2022-02-27 21:26:00 95 /min [facility] [place] [facility] Pulse oximetry Branch Body temperature 2022-02-27 21:04:00 36.89 Shabnam [facility] [place] [facility] Body weight 2022-02-27 21:04:00 88.451 kg [facility] [place] [facility] BMI 2022-02-27 21:04:00 29.65 kg/m2 [facility] [place] [facility] Body weight 2022-02-13 22:39:00 79.606 kg [facility] [place] [facility] BMI 2022-02-13 22:39:00 26.68 kg/m2 [facility] [place] [facility] Systolic blood 2022-02-13 22:35:00 130 [...] 99 /min [facility] Arterial blood by [facility]sario Pulse oximetry Branch Body temperature 2022-02-13 [...] 100 /min [facility] [place] [facility] Pulse oximetry Branch Body temperature 2022-01-30 16:57:00 36.61 Shabnam [facility] [place] [facility] Body height 2022-01-30 16:57:00 170.2 cm [facility] [place] [facility] Body weight 2022-01-30 16:57:00 86.183 kg [facility] [place] [facility] BMI 2022-01-30 16:57:00 29.76 kg/m2 [facility] [place] [facility] Systolic blood 2022-01-16 19:31:00 140 mm[Hg] [facility] [place] [facility] Diastolic blood 2022-01-16 19:31:00 82 mm[Hg] [facility] [place] [facility] Heart rate 2022-01-16 19:31:00 79 /min [facility] [place] [facility] Respiratory rate 2022-01-16 19:31:00 18 /min [facility] [place] [facility] Oxygen saturation in 2022-01-16 19:31:00 99 /min [facility] Arterial blood by [facility] Pulse oximetry Branch Body weight 2022-01-16 17:42:00 85.276 kg [facility] [place] [facility] BMI 2022-01-16 17:42:00 29.44 kg/m2 [facility] [place] [facility] Body temperature 2022-01-16 17:41:00 36.83 Shabnam [facility] [place] [facility] Systolic blood 2022 02:00:00 148 mm[Hg] [facility] [place] [facility] Diastolic blood 2022 02:00:00 83 mm[Hg] [facility] [place] [facility] Heart rate 2022 02:00:00 79 /min [facility] [place] [facility] Respiratory rate 2022 02:00:00 20 /min [facility] [place] [facility] Oxygen saturation in 2022 02:00:00 98 /min [facility] [place] [facility] P[facility] oxim[facility] Body weight 2022-01-12 23:58:00 72.576 kg [facility] [place] [facility] BMI 2022-01-12 23:58:00 25.06 kg/m2 [facility] [place] [facility] Systolic blood 2022-01-12 20:14:00 139 mm[Hg] [facility] [place] [facility] Diastolic blood 2022-01-12 20:14:00 93 mm[Hg] [facility] [place] [facility] Heart rate 2022-01-12 20:14:00 91 /min [facility] [place] [facility] Respiratory rate 2022-01-12 20:14:00 18 /min [facility] [place] [facility] Body height 2022-01-12 20:14:00 170.2 cm [facility] [place] [facility] Body weight 2022-01-12 20:14:00 72.576 kg [facility] [place] [facility] BMI 2022-01-12 20:14:00 25.06 kg/m2 [facility] [place] [facility] Oxygen saturation in 2022-01-12 20:14:00 99 /min [facility] [place] [facility] Pulse oximetry Branch Systolic blood 2021-12-28 16:22:00 116 mm[Hg] [facility] [place] [facility] Diastolic blood 2021-12-28 16:22:00 76 mm[Hg] [facility] [place] [facility] Heart rate 2021-12-28 16:22:00 78 /min [facility] [place] [facility] Body temperature 2021-12-28 16:22:00 35.78 Shabnam [facility] [place] [facility] Oxygen saturation in 2021-12-28 16:22:00 100 /min [facility] [place] [facility] Pulse oximetry Branch Respiratory rate 2021-12-28 12:52:00 18 /min [facility] [place] [facility] Body weight 2021-12-28 08:15:00 75.978 kg [facility] [place] [facility] BMI 2021-12-28 08:15:00 25.47 kg/m2 [facility] [place] [facility] Body height 2021-12-25 22:02:00 172.7 cm [facility] [place] [facility] Systolic blood 2021-12-14 19:55:00 120 mm[Hg] [facility] [place] [facility] Diastolic blood 2021-12-14 19:55:00 94 mm[Hg] [facility] [place] [facility] Heart rate 2021-12-14 19:55:00 93 /min [facility] [place] [facility] Body temperature 2021-12-14 19:55:00 36.56 Shabnam [facility] [place] [facility] Respiratory rate 2021-12-14 19:55:00 16 /min [facility] [place] [facility] Body height 2021-12-14 19:55:00 172.7 cm [facility] [place] [facility] Body weight 2021-12-14 19:55:00 81.647 kg [facility] [place] [facility] BMI 2021-12-14 19:55:00 27.37 kg/m2 [facility] [place] [facility] Oxygen saturation in 2021-12-14 19:55:00 100 /min [facility] [place] [facility] P[facility]xim[facility] Systolic blood 2021-12-09 16:13:00 139 mm[Hg] [facility] [place] [facility] Diastolic blood 2021-12-09 16:13:00 88 mm[Hg] [facility] [place] [facility] Heart rate 2021-12-09 16:13:00 77 /min [facility] [place] [facility] Body temperature 2021-12-09 16:13:00 36.06 Shabnam [facility] [place] [facility] Respiratory rate 2021-12-09 16:13:00 18 /min [facility] [place] [facility] Oxygen saturation in 2021-12-09 16:13:00 95 /min [facility] [place] [facility] P[facility]xim[facility] Body weight 2021-12-09 08:54:00 78.971 kg [facility] [place] [facility] BMI 2021-12-09 08:54:00 26.47 kg/m2 [facility] [place] [facility] Systolic blood 2021-11-23 19:30:00 140 mm[Hg] [facility] [place] [facility] Diastolic blood 2021-11-23 19:30:00 83 mm[Hg] [facility] [place] [facility] Heart rate 2021-11-23 19:30:00 79 /min [facility] [place] [facility] Oxygen saturation in 2021-11-23 19:30:00 100 /min [facility] [place] [facility] P[facility] oxim[facility] Body temperature 2021-11-23 18:42:00 36.44 Shabnam [facility] [place] [facility] Respiratory rate 2021-11-23 18:39:00 20 /min [facility] [place] [facility] Body height 2021-11-23 18:39:00 172.7 cm [facility] [place] [facility] Body weight 2021-11-23 18:39:00 83.598 kg [facility] [place] [facility] BMI 2021-11-23 18:39:00 28.02 kg/m2 [facility] [place] [facility] Systolic blood 2021-11-09 21:10:00 169 mm[Hg] [facility] [place] [facility] Diastolic blood 2021-11-09 21:10:00 80 mm[Hg] [facility] [place] [facility] Heart rate 2021-11-09 21:10:00 85 /min [facility] [place] [facility] Respiratory rate 2021-11-09 21:10:00 16 /min [facility] [place] [facility] Oxygen saturation in 2021-11-09 21:10:00 94 /min [facility] Arterial blood by [employer] Pulse oximetry Branch Body temperature 2021-11-09 19:49:00 36.83 Shabnam [facility] [place] [facility] Body height 2021-11-09 19:49:00 172.7 cm [facility] [place] [facility] Body weight 2021-11-09 19:49:00 90.719 kg [facility] [place] [facility] BMI 2021-11-09 19:49:00 30.41 kg/m2 [facility] [place] [facility] Systolic blood 2021-10-18 15:17:00 149 mm[Hg] [facility] [place] [facility] Diastolic blood 2021-10-18 15:17:00 79 mm[Hg] [facility] [place] [facility] Heart rate 2021-10-18 15:17:00 77 /min [facility] [place] [facility] Body temperature 2021-10-18 15:17:00 36.61 Shabnam [facility] [place] [facility] Respiratory rate 2021-10-18 15:17:00 16 /min [facility] [place] [facility] Body weight 2021-10-18 15:17:00 90.719 kg [facility] [place] [facility] Oxygen saturation in 2021-10-18 15:17:00 98 /min [facility] Arterial blood by [employer] Pulse oximetry Branch Procedures Procedure Date / Time Performing Clinician Source Performed [place] ABDOM PARACENTESIS 2022-08-12 16:58:16 Kev Nguyen [facility] DX/THER W/IMAGING [facility] GUIDANCE XR CHEST 1 VW 2022-08-12 15:57:01 Libertad [facility] LIPASE 2022-08-12 15:28:00 Libertad [facility] COMP. METABOLIC PANEL 2022-08-12 15:28:00 Libertad [facility] ([id number]) [facility] CBC WITH DIFF 2022-08-12 15:28:00 Libertad [facility] PROTHROMBIN TIME / INR 2022-08-12 15:28:00 Libertad [facility] CONSENT/REFUSAL FOR 2022-08-12 15:02:09 Doctor Unassigned, No [facility] DIAGNOSIS AND TREATMENT Name [facility] ASSIGNMENT OF BENEFITS 2022-06-06 18:38:18 Doctor Unassigned, No [facility] LIPASE 2022-06-05 13:17:00 Kristel [facility] HEPATIC FUNCTION PANEL 2022-06-05 13:17:00 Kristel [facility] ([id number]) (ALB,T.PRO,BILI [facility] T,BU/BC,ALT,AST,ALK PHOS) BASIC METABOLIC PANEL 2022-06-05 13:17:00 Kristel [facility] (NA, K, CL, CO2, Medical Branch GLUCOSE, BUN, CREATININE, CA) CBC WITH DIFF 2022-06-05 13:17:00 Kristel [facility] PROTHROMBIN TIME / INR 2022-06-05 13:17:00 Kristel [facility] ACTIVATED PARTIAL 2022-06-05 13:17:00 [facility] THRMPLAS [facility] CONSENT/REFUSAL FOR 2022-06-05 11:43:52 Doctor Unassigned, No [facility] DIAGNOSIS AND TREATMENT [facility] BODY FLUID DIRECT COUNT 2022-05-31 23:03:00 Jeremias Mohr [facility] HEPATIC FUNCTION PANEL 2022-05-31 21:22:00 Jeremias Mohr [facility] ([id number]) (ALB,T.PRO,BILI [facility] T,BU/BC,ALT,AST,ALK PHOS) CBC WITH DIFF 2022-05-31 19:08:00 Onur [facility] BASIC METABOLIC PANEL 2022-05-31 19:00:00 Onur [facility] (NA, K, CL, CO2, [facility] GLUCOSE, BUN, CREATININE, CA) PROTHROMBIN TIME / INR 2022-05-31 19:00:00 Onur Jeremias [facility] CONSENT/REFUSAL FOR 2022-05-31 18:40:37 Doctor Unassigned, No Un [facility] DIAGNOSIS AND TREATMENT Name [facility] BASIC METABOLIC PANEL 2022-04-11 22:15:00 Rivera Stinson [facility] (NA, K, CL, CO2, [facility] GLUCOSE, BUN, CREATININE, CA) BLOOD CULTURE SCREEN 2022-04-11 16:47:00 Rivera Stinson [facility] MAGNESIUM 2022-04-11 09:39:[address] [facility] COMP. METABOLIC PANEL 2022-04-11 09:39:00 Eddie Doyle [facility] ([id number]) [facility] CBC WITH DIFF 2022-04-11 09:39:[address] [facility] HCV ANTIBODY 2022-04-11 09:39[facility] (HCV[facility] 2022-04-11 09:[facility] T.PROTEIN BODY FLUID 2022-04-11 06:15:00 Eddie Doyle [facility] BODY FLUID DIRECT COUNT 2022-04-11 06:15:00 Eddie Doyle [facility] BODY FLUID (BACTEC 2022-04-11 06:15:00 Sweet, [facility] BOTTLE) Medical Branch COMP. METABOLIC PANEL 2022-04-10 21:26:00 Bucky Gloria [facility] ([id number]) Medical Branch CBC WITH DIFF 2022-04-10 21:26:00 Bucky Gloria [place] [facility] GLYCOSYLATED HEMOGLOBIN 2022-04-10 21:26:00 Jessica Leon [facility] (A1C) Medical Branch PROTHROMBIN TIME / INR 2022-04-10 21:26:00 Bucky Gloria [facility] ACTIVATED PARTIAL 2022-04-10 21:26:00 Bucky [facility] THRMPLAS SADE [facility] CONSENT/REFUSAL FOR 2022-04-10 19:58:33 Doctor Unassigned, No [facility] [place] [facility] Name [facility] ADMISSION 2022-04-10 06:01:00 Doctor Unassigned, No [facility] [place] ABDOM PARACENTESIS 2022-03-27 20:57:39 Gini [facility] DX/THER W/IMAGING Medical Branch GUIDANCE COMP. METABOLIC PANEL 2022-03-27 18:56:00 Gini [facility] ([id number]) [facility] CBC WITH DIFF 2022-03-27 18:56:00 Gini [facility] PROTHROMBIN TIME / INR 2022-03-27 18:56:00 Gini [facility] [place] ABDOM PARACENTESIS 2022-03-12 18:32:33 [facility] DX/THER W IMAGING Medical [facility] GUIDANCE CONSENT/REFUSAL FOR 2022-03-12 17:29:10 Doctor Unassigned, No [facility] [place] DIAGNOSIS AND TREATMENT [facility] Medical Branch [place] ABDOM PARACENTESIS 2022-02-27 21:29:57 [facility] DX/THER W IMAGING Medical [facility] GUIDANCE CONSENT/REFUSAL FOR 2022-02-27 21:02:37 Doctor Unassigned, No [facility] [place] DIAGNOSIS AND TREATMENT [facility] Medical Branch [place] ABDOM PARACENTESIS 2022-02-13 21:42:20 Kev Nguyen [facility] DX/THER W IMAGING Medical [facility] GUIDANCE CONSENT/REFUSAL FOR 2022-02-13 21:08:22 Doctor Unassigned, No [facility] [place] DIAGNOSIS AND TREATMENT Name Medical [facility] [place] ABDOM PARACENTESIS 2022-01-30 19:16:37 Kev Nguyen [facility] DX/THER W IMAGING [facility] GUIDANCE CONSENT/REFUSAL FOR 2022-01-30 16:51:04 Doctor Unassigned, No [facility] [place] DIAGNOSIS AND TREATMENT Name Medical [facility] [place] ABDOM PARACENTESIS 2022-01-16 19:17:58 Kev Nguyen [facility] DX/THER W IMAGING [facility] GUIDANCE CONSENT/REFUSAL FOR 2022-01-16 17:29:44 Doctor Unassigned, No [facility] [place] DIAGNOSIS AND TREATMENT Name [facility] XR CHEST 1 VW 2022 01:47:22 Jaqui Romano [facility] COMP. METABOLIC PANEL 2022 01:19:00 Jaqui Romano [facility] ([id number]) [facility] CBC WITH DIFF 2022 01:19:00 Jaqui Romano [facility] PROTHROMBIN TIME / INR 2022 01:19:00 Jaqui Romano [facility] ACTIVATED PARTIAL 2022 01:19:00 Jaqui Romano [facility] CONSENT/REFUSAL FOR 2022-01-12 22:44:32 Doctor Unassigned, No [facility] [place] DIAGNOSIS AND TREATMENT Name [facility] CONSENT/REFUSAL FOR 2022-01-12 20:00:19 Doctor Unassigned, No [facility] [place] DIAGNOSIS AND TREATMENT Name [facility] POCT GLUCOSE (AUTOMATED) 2021-12-28 12:54:00 Augustin Jean [facility] BASIC METABOLIC PANEL 2021-12-28 08:19:00 Danielle Rothman [facility] [place] (NA, K, CL, CO2, [facility] GLUCOSE, BUN, CREATININE, CA) CBC WITH DIFF 2021-12-28 08:19:00 Danielle Rothman [facility] BODY FLUID DIRECT COUNT 2021-12-28 01:21:00 Kimmie Flynn [facility] BODY FLUID 2021-12-28 01:21:00 [facility] [place] [facility] [place] CULTURE(AEROBIC/ANAEROBI [facility] C) POCT GLUCOSE (AUTOMATED) 2021-12-28 00:42:00 Augustin Jean [facility] POCT GLUCOSE (AUTOMATED) 2021-12-27 21:53:00 Augustin Jean [facility] POCT GLUCOSE (AUTOMATED) 2021-12-27 16:33:00 Augustin Jean [facility] POCT GLUCOSE (AUTOMATED) 2021-12-27 12:29:00 Augustin Jean [facility] BASIC METABOLIC PANEL 2021-12-27 09:27:00 Danielle Rothman [facility] (NA, K, CL, CO2, Medical Branch GLUCOSE, BUN, CREATININE, CA) CBC WITH DIFF 2021-12-27 09:27:00 Danielle Rothman [facility] POCT GLUCOSE (AUTOMATED) 2021-12-27 01:11:00 Augustin Jean [facility] POCT GLUCOSE (AUTOMATED) 2021-12-26 21:17:00 [facility]) 2021-12-26 16:48:00 Augustin Jean [facility] POCT GLUCOSE (AUTOMATED) 2021-12-26 12:47:00 Augustin Jean [facility] LACTATE DEHYDROGENASE 2021-12-26 09:26:[address] [facility] MAGNESIUM 2021-12-26 09:26:00 Ted [facility] HEPATIC FUNCTION PANEL 2021-12-26 09:26:00 Ted [facility] ([id number]) (ALB,T.PRO,BILI Medical Branch T,BU/BC,ALT,AST,ALK PHOS) BASIC METABOLIC PANEL 2021-12-26 09:26:00 Ted [facility] (NA, K, CL, CO2, Medical Branch GLUCOSE, BUN, CREATININE, CA) CBC WITH DIFF 2021-12-26 09:26:00 [place], [facility] POCT GLUCOSE (AUTOMATED) 2021-12-26 00:44:00 Ted Augustin [facility] POCT GLUCOSE (AUTOMATED) 2021-12-25 23:16:00 Augustin Jean [facility] URINALYSIS 2021-12-25 15:12:00 Chilo Oliva [facility] XR CHEST 2 VW 2021-12-25 14:56:42 Chilo Oliva [facility] COMP. METABOLIC PANEL 2021-12-25 14:31:00 Chilo Oliva [facility] ([id number]) [facility] CBC WITH DIFF 2021-12-25 14:31:00 Chilo Oliva [facility] PROTHROMBIN TIME / INR 2021-12-25 14:31:00 Chilo Oliva [facility] ACTIVATED PARTIAL 2021-12-25 14:31:00 Chilo Oliva [facility] CONSENT/REFUSAL FOR 2021-12-25 13:31:05 Doctor Unassigned, No [facility] [place] [facility]RE[facility] Name [facility] BASIC METABOLIC PANEL 2021-12-14 22:07:00 Mike Hoffman [facility] (NA, K, CL, CO2, Medical Branch GLUCOSE, BUN, CREATININE, CA) CBC WITH DIFF 2021-12-14 22:07:00 Mike Hoffman [facility] CONSENT/REFUSAL FOR 2021-12-14 19:51:33 [facility] POCT GLUCOSE (AUTOMATED) 2021-12-09 16:37:00 Alisha Cha [facility] POCT GLUCOSE (AUTOMATED) 2021-12-09 12:50:00 Alisha Cha [facility] BASIC METABOLIC PANEL 2021-12-09 08:57:00 [facility] ([facility], K, CL, CO2, [facility] GLUCOSE, BUN, CREATININE, CA) POCT GLUCOSE (AUTOMATED) 2021-12-09 01:54:00 Alisha Cha [facility] POCT GLUCOSE (AUTOMATED) 2021-12-08 21:56:00 Alisha Cha [facility] POCT GLUCOSE (AUTOMATED) 2021-12-08 16:49:00 Alisha Cha [facility] POCT GLUCOSE (AUTOMATED) 2021-12-08 14:07:00 Alisha Cha [facility] PHOSPHORUS 2021-12-08 08:58:00 Dusty Josue [facility] URIC ACID 2021-12-08 08:58:00 Dusty Josue [facility] MAGNESIUM 2021-12-08 08:58:00 Dusty Josue [facility] AMMONIA, PLASMA 2021-12-08 08:58:00 Dusty Josue [facility] BASIC METABOLIC PANEL 2021-12-08 08:58:00 Danielle Rothman [facility] (NA, K, CL, CO2, [facility] GLUCOSE, BUN, CREATININE, CA) IRON PANEL 2021-12-08 08:58:00 Dusty Josue [facility] CBC WITH DIFF 2021-12-08 08:58:00 Danielle Rothman [facility] URINALYSIS 2021-12-08 02:26:00 Willy [facility] POTASSIUM, URINE RANDOM 2021-12-08 02:25:00 Willy [facility] SODIUM, URINE RANDOM 2021-12-08 02:25:00 Willy [facility] PROTEIN CREAT RATIO 2021-12-08 02:25:00 Willy [facility] URINE RANDOM [facility] OSMOLALITY URINE 2021-12-08 02:23:00 Willy [facility] POCT GLUCOSE (AUTOMATED) 2021-12-08 02:08:00 Alisha Cha [facility] [place] ABDOM PARACENTESIS 2021-12-07 22:45:00 Bucky Gloria [facility] DX/THER W IMAGING [facility] GUIDANCE PHOSPHORUS 2021-12-07 19:33:00 Stephan, [facility] CREATINE KINASE 2021-12-07 19:33[facility] 2021-12-07 19:33:00 Stephan [facility] LIPID PANEL 2021-12-07 19:33:00 [facility] ([id number])(TOTAL Medical Branch CHOLESTEROL, TRIGLYCERIDES, HDL) N-TERMINAL PRO-BNP 2021-12-07 19:33[facility]IC [facility]EL 2021-12-07 16:02:00 Bucky Gloria [facility] ([id number]) [facility] CBC WITH DIFF 2021-12-07 16:02:00 Faizan [facility] GLYCOSYLATED HEMOGLOBIN 2021-12-07 [facility] PROTHROMBIN TIME / INR 2021-12-07 16:02:00 Bucky Gloria [facility] ACTIVATED PARTIAL 2021-12-07 16:02:00 Faizan [facility] THRMPLAS SADE [facility] CONSENT/REFUSAL FOR 2021-12-07 15:35:39 Doctor Unassigned, No [facility] [place] DIAGNOSIS AND TREATMENT [facility] [place] ABDOM PARACENTESIS 2021-11-23 19:39:58 Jonna Lance [facility] DX/THER W IMAGING [facility] GUIDANCE CONSENT/REFUSAL FOR 2021-11-23 18:36:31 Doctor Unassigned, No [facility] [place] [facility] [place] ABDOM PARACENTESIS 2021-11-09 20:59:55 Kev Nguyen [facility] DX/THER W IMAGING [facility] Branch GUIDANCE CONSENT/REFUSAL FOR 2021-11-09 19:35:17 Doctor Unassigned, No [facility] DIAGNOSIS AND TREATMENT [facility] NOTICE OF PRIVACY 2021-11-09 19:32:40 Doctor Unassigned, No [facility] Branch LIPASE 2021-10-18 15:50:00 Annabelle Ramirez [facility] COMP. METABOLIC PANEL 2021-10-18 15:50:00 Annabelle Ramirez [facility] [place] ([id number]) [facility] CBC WITH DIFF 2021-10-18 15:50:00 Annabelle Ramirez [facility] ty [facility] CONSENT/REFUSAL FOR 2021-10-18 15:18:16 Doctor Unassigned, No [facility] Name Medical Branch Encounters Start End Encounter Admission Attending Care Care Encounter Source Date/Time Date/Time Type Type Clinicians Facility Department ID 2022-09-17 2022-09-17 Outpatient [facility] [place] 11:30:32 11:30:32 [id number] [place] 2022-08-13 2022-08-13 Outpatient [facility] [place] 08:09:25 08:09:25 [id number] [place] 2022-08-12 2022-08-12 Emergency X [facility] ERT [id number] Univers 10:04:00 12:47:00 MIKE reynoso [facility] 2022-08-12 2022-08-12 Emergency [facility] [id number] Univers 10:04:00 12:47:00 Mike SOSA 350.1.13.10 i ty [facility] 4.2.7.2.686 [facility] [phone] [facility] [address] [place] 2022-06-13 2022-06-13 Outpatient [facility] [id number] [place] 09:35:42 09:35:42 [id number] [facility] 2022-06-06 2022-06-06 Rico Chapman LAEMILIA 1.2.840.114 [id number] Univers 14:30:00 15:00:00 Visit [facility] SPECIALTY 350.1.13.10 ity of [facility] 4.2.7.2.686 [facility] AT [phone] Tn farrah LYONS [address] [place] [address] 2022-06-06 2022-06-06 Outpatient R [facility] [id number] Univers 14:30:00 14:30:00 LEILA reynoso [facility] 2022-06-06 2022-06-06 Orders Doctor ALVARADO 1.2.840.114 [id number] Univers 00:00:00 00:00:00 Only Unassigned, CARL 350.1.13.10 ity of [facility] 4.2.7.2.686 Henrique as [id number] [facility] [address] [place] 2022-06-05 2022-06-05 Emergency X JOSÉ MIGUEL HUMPHRIES [facility] ERT 1 [id number] Univers 06:51:00 10:20:00 KRISTELJOSÉ MIGUEL Schwarz ity of [facility] 2022-06-05 2022-06-05 Emergency Kristel, TRAUMA 1.2.453.432 [id number] Univers 06:51:00 10:20:00 [facility] 350.1.13.10 [place] [id number] [facility] [address] [place] 2022-05-31 2022-05-31 Emergency X JEREMIAS MOHR [facility] ERT 1 [id number] Univers 13:40:00 19:16:00 JEREMIAS MOHR ity of [facility] 2022-05-31 2022-05-31 Emergency Mohr, TRAUMA 1.2.087.602 [id number] Univers 13:40:00 19:16:00 Jeremias HELENA 350.1.13.10 [place] [id number] [facility] [address] [place] 2022-05-13 2022-05-13 Outpatient SFA [id number] [place] 08:36:17 08:36:17 [id number] F [place] 2022-04-10 2022-04-11 Outpatient U HANNAH [facility] NICOLE [id number] Univers 14:05:00 17:45:00 GEETA ity of [facility] 2022-04-10 2022-04-11 Emergency Bucky Gloria MOLLY 1.2.840. 114 [id number] Univers 14:05:00 17:45:00 HannahGeeta CARL 350.1.13.10 ity of [facility] 4.2.7.2.686 Henrique as [id number] [place] [address] Branch 2022-03-27 2022-03-27 Emergency X KITA [facility] ERT [id number] Univers 12:34:00 17:18:00 GINI reynoso [facility] 2022-03-27 2022-03-27 Emergency East, [facility] [id number] Univers 12:34:00 17:18:00 Gini SOSA 350.1.13.10 ity [facility] 4.2.7.2.686 [facility] [id number] [address] 2022-03-26 2022-03-26 Outpatient SFA [id number] [place] 10:22:23 10:22:23 [id number] [place] 2022-03-25 2022-03-25 Outpatient [facility] [place] 13:11:32 13:11:32 [id number] [place] 2022-03-12 2022-03-12 Emergency X SINGER [facility] ERT [id number] Univers 11:38:00 14:36:00 KEV reynoso [facility] 2022-03-12 2022-03-12 Emergency , [facility] 1.2.076.423 [id number] Univers 11:38:00 14:36:00 Kev SOSA 350.1.13.10 i ty of [place] 4.2.7.2.686 [facility] [id number] [address] 2022-02-27 2022-02-27 Emergency X , [facility] ERT [id number] Univers 15:04:00 16:07:00 KEV reynoso [facility] 2022-02-27 2022-02-27 Emergency , [facility] 1.2.881.725 [id number] Univers 15:04:00 16:07:00 Kev SOSA 350.1.13.10 i ty of [place] 4.2.7.2.686 [facility] [id number] [address] 2022-02-13 2022-02-13 Emergency X , [facility] ERT [id number] Univers 15:17:00 16:45:00 KEV reynoso [facility] 2022-02-13 2022-02-13 Emergency Singer [facility] 1.2.193.464 [id number] Univers 15:17:00 16:45:00 Kev SOSA 350.1.13.10 i ty of [place] 4.2.7.2.686 [facility] [id number] [address] 2022-01-30 2022-01-30 Emergency X , [facility] ERT [id number] Univers 10:58:00 13:28:00 KEV reynoso [facility] 2022-01-30 2022-01-30 Emergency Lila Leo [facility] 1.2.840. 114 [id number] Univers 10:58:00 13:28:00 Kev Nguyen 350.1.13.10 ity of [place] 4.2.7.2.686 [facility] [id number] [address] 2022-01-16 2022-01-16 Emergency X [facility] ERT [id number] Univers 11:43:00 14:30:00 KEV reynoso [facility] 2022-01-16 2022-01-16 Emergency [facility] 1.2.328.403 [id number] Univers 11:43:00 14:30:00 Kev SOSA 350.1.13.10 i ty of [place] 4.2.7.2.686 [facility] [id number] [address] 2022-01-16 2022-01-16 Orders Doctor JENNY 1.2.840.114 [id number] Univers 00:00:00 00:00:00 Only Unassigned, CARL 350.1.13.10 ity of [place] [facility] 4.2.7.2.686 Henrique [id number] [place] [address] Branch 2022-01-12 2022-01-12 Emergency [facility] [id number] Univers 17:45:00 21:44:00 JAQUI wilianyasmeen [facility] 2022-01-12 2022-01-12 Emergency Samuel Jennings [place] 1.2.840 .114 [id number] Univers 17:45:00 21:44:00 Jaqui Romano [facility] 350.1.13.10 ity of 4.2.7.2.686 [facility] [id number] [facility] [address] 2022-01-12 2022-01-12 Emergency X [facility]RT [id number] Univers 15:17:00 15:27:00 MAGNOLIA ity [facility] 2022-01-12 2022-01-12 Emergency [facility] 1.2.354.596 [id number] Univers 15:17:00 15:27:00 Magnolia SOSA 350.1.13.10 ity of [place] 4.2.7.2.686 [facility] [id number] [facility] [address] 2022-01-01 2022-01-01 Transition WENCESLAO Fragoso 1.2.840.114 [id number] Univers 00:00:00 00:00:00 of Care Analia AVERY 350.1.13.10 ity of [place] 4.2.7.2.686 [facility] [id number] [facility] [address] 2021-12-25 2021-12-28 Inpatient X [facility]ED [facility] [id number] Univers 08:38:00 13:08:00 AUGUSTIN ity [facility] 2021-12-25 2021-12-28 [facility] Chilo Oliva [facility] 1.2.840. 114 [id number] Univers 08:38:00 13:08:00 Encounter Constanzaarely Augustinlanette SOSA 350.1.13.10 ity of [place] 4.2.7.2.686 [facility] [phone] [facility] [address] 2021-12-14 2021-12-14 Emergency [facility]RT [id number] Univers 14:56:00 18:52:00 MIKE ityasmeen [facility] 2021-12-14 2021-12-14 Emergency [facility] 1.2.121.076 [id number] Univers 14:56:00 18:52:00 Mike SOSA 350.1.13.10 i ty [facility] 4.2.7.2.686 [facility] [id number] [place] [address] Branch 2021-12-07 2021-12-09 Inpatient X SEMAJ [facility] NICOLE [id number] Univers 10:44:00 16:35:00 ALISHA reynoso [facility] 2021-12-07 2021-12-09 Hospital Bucky Gloria [facility] 1.2.840.1 14 [id number] Univers 10:44:00 16:35:00 Encounter Alisha Cha 350.1.13.10 ity of [place] 4.2.7.2.686 [facility] [id number] [place] [address] [place] 2021-11-23 2021-11-23 Emergency X CASI [facility] ERT [id number] Univers 13:42:00 14:58:00 JONNA edgardo [facility] 2021-11-23 2021-11-23 Emergency [facility] 1.2.840.114 [id number] Univers 13:42:00 14:58:00 Jonna SOSA 350.1.13.10 ity [facility] 4.2.7.2.686 [facility] [id number] [facility] [address] [place] 2021-11-09 2021-11-09 Emergency X [facility] ERT [id number] Univers 14:51:00 16:42:00 KEV wilianyasmeen [facility] 2021-11-09 2021-11-09 Emergency [facility] 1.2.252.517 [id number] Univers 14:51:00 16:42:00 Kev SHEILA 350.1.13.10 i ty [facility] 4.2.7.2.686 [facility] [id number] [facility] [address] [place] 2021-11-09 2021-11-09 Orders Doctor JENNY 1.2.840.114 [id number] Univers 00:00:00 00:00:00 Only Unassigned, CARL 350.1.13.10 ity of [place] [facility] 4.2.7.2.686 [facility] [id number] [facility] [address] 2021-10-18 2021-10-18 Emergency X ASHLEY [facility] ERT [id number] Univers 10:21:00 11:56:00 ANNABELLE reynoso [facility] 2021-10-18 2021-10-18 Emergency Ibikunle, TRAUMA 1.2.840.114 [id number] Univers 10:21:00 11:56:00 [facility] 350.1.13.10 ity of 4.2.7.2.686 Radha gardner [id number] [place] [address] Branch Results Test Description Test Time Test Comments Results Result Comments Source BASIC METABOLIC PANEL (NA, K, CL, CO2, GLUCOSE, BUN, 2022-05 13:40:36 CREATININE, CA) Test Item Value Reference Range Interpretation Comme nts NA (test code = 3901853374) 138 mmol/L 135-145 K (test code = 1866380761) 4.8 mmol/L 3.5-5.0 CL (test code = 5759683165) 102 mmol/L 98-108 CO2 TOTAL (test code = 8346278767) 32 mmol/L 23-31 H AGAP (test code = 6252563917) 4 2-16 BUN (test code = 8154903608) 45 mg/dL 7-23 H GLUCOSE (test code = 5968545030) 163 mg/dL 70-110 H CREATININE (test code = 2.52 mg/dL 0.60-1.25 H 4724411319) CALCIUM (test code = 8724660997) 8.1 mg/dL 8.6-10.6 L eGFR (test code = 1060528266) 25.8 mL/min/1.73m2 RODRIGO (test code = RODRIGO) [...] tests). Lab Interpretation (test code = Abnormal 99601-4) [facility]99[facility] (ALB,T.PRO,BILI T,BU/BC,ALT,AST,ALK PHOS)2022-06-05 13:40:36 Test Item Value Reference Range Interpretation Comments TOTAL BILI (test code = 7106004504) 0.4 mg/dL 0.1-1.1 BILI UNCON (test code = 9445645942) 0.1 mg/dL 0.1-1.1 BILI CONJ (test code = 7235160907) 0.0 mg/dL 0.0-0.3 T PROTEIN (test code = 7105817694) 6.0 g/dL 6.3-8.2 L ALBUMIN (test code = 0714709386) 2.9 g/dL 3.5-5.0 L ALK PHOS (test code = 3386172770) 71 U/L 34-122 ALTv (test code = 1742-6) 15 U/L 5-50 AST(SGOT) (test code = 7083195242) 23 U/L 13-40 Lab Interpretation (test code = Abnormal 39017-4) [facility]2023-[facility]-29 13:40:36 Test Item Value Reference Range Interpretation Comments LIPASE (test code = 6002055086) 125 U/L 0-220 Lab Interpretation (test code = Normal 14414-3) [facility] THRMPLAS [id number] 13:37:54 Test Item Value Reference Range Interpretation Comments APTT Patient (test code 38 See_Comment H [Au tomated message] = 0413-2) The system Autopilot generated this result transmitted ref erence range: 26 - 36 Seconds. The reference range was not used to int erpret this result as normal/abnormal . Lab Interpretation (test Abnormal code = 56073-2) [facility] CentralPROTHROMBIN TIME / [id number] 13:37:54 Test Item Value Reference Range Interpretation [...] tions. Lab Interpretation (test Abnormal code = 25107-6) [facility] WITH [id number] 13:31:36 Test Item Value Reference Range Interpretation Comments WBC (test code = 4.39 See_Comment [Automated 6690-2) message] The sy stem which generated this result transmitted reference range : 4.20 - 10.70 10*3/?L. The reference range was not used to interpret this result as normal/abnormal . RBC (test code = 3.48 See_Comment L [Automated 129-8) message] The sy stem which generated this [...] RDW-SD (test code = 45.2 fL 38.5-51.6 11764-5) RDW-CV (test code = 13.9 % 12.1-15.4 788-0) PLT (test code = 123 See_Comment L [Automated 777-3) message] The sy stem which generated this result transmitted reference range : 150 - 328 10*3/ ?L. The reference r kelin was not used to interpret this result as normal/abnormal . MPV (test code = 9.7 fL 9.8-13.0 L 63127-3) NRBC/100 WBC (test 0.0 See_Comment [Automat ed code = 9269571634) message] The system which generated this result transmitted reference range : 0.0 - 10.0 /100 WBCs. The refer ence range was not u sed to interpret th is result as normal/abnormal . NRBC x10^3 (test code See_Comment [Auto mated = 0800163843) message] The s ystem which generated this result transmitted reference range : 10*3/?L. The reference range was not used to interpret this result as normal/abnormal . GRAN MAT (NEUT) % 74.0 % (test code = 770-8) IMM GRAN % (test code 0.70 % = 6701984701) LYMPH % (test code = 10.9 % 736-9) MONO % (test code = 11.2 % 5905-5) EOS % (test code = 2.7 % 713-8) BASO % (test code = 0.5 % 706-2) GRAN MAT x10^3(ANC) 3.25 10*3/uL 1.99-6.95 (test code = 7733125642) IMM GRAN x10^3 (test 0.03 10*3/uL 0.00-0.06 code = 7317174741) LYMPH x10^3 (test code 0.48 10*3/uL 1.09-3.23 L = 731-0) MONO x10^3 (test code 0.49 10*3/uL 0.36-1.02 = 742-7) EOS x10^3 (test code = 0.12 10*3/uL 0.06-0.53 711-2) BASO x10^3 (test code 0.01-0.09 = 704-7) Lab Interpretation Abnormal (test code = 91403-9) [facility] METABOLIC PANEL (NA, K, CL, CO2, GLUCOSE, BUN, CREATININE, CA)2022-05-31 19:22:56 Test Item Value Reference Range Interpretation Comments NA (test code = 136 mmol/L 135-145 5584934041) K (test code = 5.2 mmol/L 3.5-5.0 H 7808141411) CL (test code = 100 mmol/L 98-108 9813477847) CO2 TOTAL (test code = 29 mmol/L 23-31 2774763046) AGAP (test code = 7 2-16 5303305729) BUN (test code = 49 mg/dL 7-23 H 5016438941) GLUCOSE (test code = 115 mg/dL 70-110 H 1283298453) CREATININE (test code = 2.47 mg/dL 0.60-1.25 H 5959931539) CALCIUM (test code = 8.3 mg/dL 8.6-10.6 L 7756194508) eGFR (test code = 26.4 mL/min/1.73m2 9714716156) RODRIGO (test code = RODRIGO) Association of [...] tests). Lab Interpretation Abnormal (test code = 41419-4) [facility] WITH [id number] 19:14:12 Test Item Value Reference Range Interpretation [...] RDW-SD (test code = 46.5 fL 38.5-51.6 88092-4) RDW-CV (test code = 14.3 % 12.1-15.4 788-0) PLT (test code = 163 See_Comment [Automated 777-3) message] The sy stem which generated this result transmitted reference range : 150 - 328 10*3/ ?L. The reference r kelin was not used to interpret this result as normal/abnormal . MPV (test code = 9.2 fL 9.8-13.0 L 07868-7) NRBC/100 WBC (test 0.0 See_Comment [Automat ed code = 9687928745) message] The system which generated this result transmitted reference range : 0.0 - 10.0 /100 WBCs. The refer ence range was not u sed to interpret th is result as normal/abnormal . NRBC x10^3 (test code See_Comment [Auto mated = 1189303776) message] The s ystem which generated this result transmitted reference range : 10*3/?L. The reference range was not used to interpret this result as normal/abnormal . GRAN MAT (NEUT) % 73.9 % (test code = 770-8) IMM GRAN % (test code 0.40 % = 4265535730) LYMPH % (test code = 13.1 % 736-9) MONO % (test code = 9.1 % 5905-5) EOS % (test code = 2.9 % 713-8) BASO % (test code = 0.6 % 706-2) GRAN MAT x10^3(ANC) 3.51 10*3/uL 1.99-6.95 (test code = 0677341565) IMM GRAN x10^3 (test 0.00-0.06 code = 9938308288) LYMPH x10^3 (test code 0.62 10*3/uL 1.09-3.23 L = 731-0) MONO x10^3 (test code 0.43 10*3/uL 0.36-1.02 = 742-7) EOS x10^3 (test code = 0.14 10*3/uL 0.06-0.53 711-2) BASO x10^3 (test code 0.03 10*3/uL 0.01-0.09 = 704-7) Lab Interpretation Abnormal (test code = 08291-5) [facility] / [id number] 19:12:09 Test Item Value Reference Range Interpretation [...] tions. Lab Interpretation (test Abnormal code = 24163-2) [facility] CentralBODY FLUID MANUAL [id number] 22:52:46 Test Item Value Reference Range Interpretation Comments BF SEGS% (test 16 % code = 23770-1) BF LYMPHS% (test 50 % code = 70378-4) BF MACROPHAGE% 30 % (test code = 09168-6) BF MESOS% (test 4 % code = 22386-5) BF #CELLS CNTD 100 cells/uL (test code = 7311777453) RODRIGO (test code = Reviewed by HANG HERNANDES MD, Director of HEMATOPATHOLOGY [facility] Central[facility] Protein Body [id number] 08:10:53 Test Item Value Reference Range Interpretation Comments T.PROT BF (test 3000.0 mg/dL code = 3170688937) UNSPUN BODY FLUID Light Yellow COLOR (test code = 5627327525) UNSPUN BODY FLUID Cloudy CLARITY (test code = 4967854918) SPUN BODY FLUID Light Yellow COLOR (test code = 6933967496) SPUN BODY FLUID Cloudy CLARITY (test code = 5338150461) Sediment (test code The sediment volume is = 7141717385) <0.01 mLs of the total fluid volume of 5 mLs and its color is red. RODRIGO (test code = Test developed and RODRIGO) characteristics determined by [facility] Laboratory Services. [facility] CentralBODY FLUID DIRECT [id number] 08:09:17 Test Item Value Reference Range Interpretation Comments BF COLOR (test Yellow code = 8812030119) TURBIDITY (test Turbid code = 7217187180) BF WBC Count 645 See_Comment [Automated (test code = message] The 2816299460) system which generated this result transmitted reference range : /?L. The reference range was not used to interpret this result as normal/abnormal . BF RBC Count See_Comment [Automated (test code = message] The 9069504823) system which generated this result transmitted reference range : /?L. The reference range was not used to interpret this result as normal/abnormal . RODRIGO (test code = The reference range RODRIGO) and other method performance specifications have not been established for this body fluid. ?The test results must be integrated into the clinical context for interpretation. [facility] CentralGLYCOSYLATED HEMOGLOBIN (A1C)2022-04-11 04:15:40 Test Item Value Reference Range Interpretation Comments HGB A1C (test code = 5.0 % 4.0-5.7 4548-4) RODRIGO (test code = RODRIGO) Reference RangesNormal: <5.7%Prediabetes: 5.7 - 6.4%Diabetes: > 6.5% Lab Interpretation (test Normal code = 03686-5) [facility] CentralACTIV[facility] PARTIAL THRMPLAS [id number] 21:53:50 Test Item Value Reference Range Interpretation Comments APTT Patient (test 27 See_Comment [Automat ed code = 3173-2) message] The system which generated this result transmitted reference range : 23 - 38 Seconds . The reference range was not used to interpr et this result as normal/abnormal . RODRIGO (test code = RODRIGO) The [facility] patient population mean normal value for aPTT is 30 seconds. Lab Interpretation Normal (test code = 20447-6) [facility] CentralPROTHROMBIN TIME / [id number] 21:51:52 Test Item Value Reference Range Interpretation [...] tions. Lab Interpretation (test Normal code = 81620-9) [facility] CentralCOMP. METABOLIC PANEL (14502)2022-04-10 21:50:30 Test Item Value Reference Range Interpretation Comments NA (test code = 138 mmol/L 135-145 6662713310) K (test code = 4.7 mmol/L 3.5-5.0 9706860242) CL (test code = 114 mmol/L 98-108 H 4893238719) CO2 TOTAL (test code = 21 mmol/L 23-31 L 9711874517) AGAP (test code = 3 2-16 6418015709) BUN (test code = 55 mg/dL 7-23 H 1717350124) GLUCOSE (test code = 119 mg/dL 70-110 H 8703230343) CREATININE (test code = 1.98 mg/dL 0.60-1.25 H 5555769741) TOTAL BILI (test code = 0.7 mg/dL 0.1-1.5 5141218139) CALCIUM (test code = 7.7 mg/dL 8.6-10.6 L 1835558030) T PROTEIN (test code = 6.0 g/dL 6.3-8.2 L 1925918111) ALBUMIN (test code = 2.5 g/dL 3.5-5.0 L 9486741355) ALK PHOS (test code = 85 U/L 34-122 3407568943) ALTv (test code = 23 U/L 5-50 1742-6) AST(SGOT) (test code = 33 U/L 13-40 0121117997) eGFR (test code = 34.1 mL/min/1.73m2 4609245939) RODRIGO (test code = RODRIGO) Association of [...] tests). Lab Interpretation Abnormal (test code = 74349-7) [facility] WITH [id number] 21:35:48 Test Item Value Reference Range Interpretation [...] RDW-SD (test code = 50.8 fL 38.5-51.6 69143-2) RDW-CV (test code = 16.6 % 12.1-15.4 H 788-0) PLT (test code = 170 See_Comment [Automated 777-3) message] The sy stem which generated this result transmitted reference range : 150 - 328 10*3/ ?L. The reference r kelin was not used to interpret this result as normal/abnormal . MPV (test code = 9.2 fL 9.8-13.0 L 39780-3) NRBC/100 WBC (test 0.0 See_Comment [Automat ed code = 3420369818) message] The system which generated this result transmitted reference range : 0.0 - 10.0 /100 WBCs. The refer ence range was not u sed to interpret th is result as normal/abnormal . NRBC x10^3 (test code See_Comment [Auto mated = 6203761603) message] The s ystem which generated this result transmitted reference range : 10*3/?L. The reference range was not used to interpret this result as normal/abnormal . GRAN MAT (NEUT) % 73.6 % (test code = 770-8) IMM GRAN % (test code 1.30 % = 2135528381) LYMPH % (test code = 12.6 % 736-9) MONO % (test code = 8.9 % 5905-5) EOS % (test code = 3.2 % 713-8) BASO % (test code = 0.4 % 706-2) GRAN MAT x10^3(ANC) 3.40 10*3/uL 1.99-6.95 (test code = 6263183781) IMM GRAN x10^3 (test 0.06 10*3/uL 0.00-0.06 code = 4320378341) LYMPH x10^3 (test code 0.58 10*3/uL 1.09-3.23 L = 731-0) MONO x10^3 (test code 0.41 10*3/uL 0.36-1.02 = 742-7) EOS x10^3 (test code = 0.15 10*3/uL 0.06-0.53 711-2) BASO x10^3 (test code 0.01-0.09 = 704-7) Lab Interpretation Abnormal (test code = 55877-5) [facility], [id number] 09:54:12SPECIMEN NUMBER: [id number] CULTURE, URINE SPECIMEN NUMBER: [id number] SPECIMEN COMMENT: URINE SOURCE:URINE REPORT STATUS: FINAL FINAL REPORT: 03/28/2022 10-50,000 CFU/ML UROGENITAL ANUPAM PRESENT NO COMMON [id number] 04:49:09 Test Item Value Reference Range Interpretation Comments MAGNESIUM (test code = 2226) 2.2 MG/DL 1.6-2.6 COMPREHENSIVE METABOLIC [id number] 04:36:10 Test Item Value Reference Range Interpretation Comments GLUCOSE (test code = 96 MG/DL 70-99 2216) BUN (test code = 39 MG/DL 8-23 H 2207) CREATININE (test 2.06 MG/DL 0.80-1.40 H code = 2214) eGFR (2021 CKD-EPI) 35 ML/MIN/1.73 >60 L (test code = 48470) CALC BUN/CREAT (test 19 RATIO 6-28 code = 2235) SODIUM (test code = 141 MEQ/L 314-544 9971) POTASSIUM (test code 4.3 MEQ/L 3.5-5.4 = 2227) CHLORIDE (test code 110 MEQ/L 95-107 H = 2214) CARBON DIOXIDE (test 20 MEQ/L 19-31 code = 220) CALCIUM (test code = 8.3 MG/DL 8.5-10.5 L 2208) PROTEIN, TOTAL (test 5.6 G/DL 6.1-8.3 L code = 2228) ALBUMIN (test code = 2.5 G/DL 3.5-5.2 L 2200) CALC GLOBULIN (test 3.1 G/DL 1.9-3.7 code = 224) CALC A/G RATIO (test 0.8 RATIO 1.0-2.6 L code = 2233) BILIRUBIN, TOTAL 0.4 MG/DL See_Comment [Automated message] (test code = 2206) The syste [employer] which generated this result transmit ros reference range : <=1.2. The refe rence range was not u sed to interpret th is result as normal/abnormal . ALKALINE PHOSPHATASE 94 U/L 40-123 (test code = 2203) AST (test code = 20 U/L 9-50 2217) ALT (test code = 16 U/L 5-50 2218) CBC W/AUTO DIFF WITH [id number] 02:15:32 Test Item Value Reference Range Interpretation [...] message] code = 1065) WBC'S The system [employer] generated this result transmitted ref erence range: [...] 0.00-0.11 UNLESS O THERWISE (test code = 16821) INDICATE D, ALL TESTING PERFORM ED [facility], [facility]. [address] [place] [id number] [place] [address] DIRECTOR: SHERRI PLASENCIA M.D. CLIA NUMBER [id number] CAP ACCREDITATION N O. [id number] COMP. METABOLIC PANEL (99290)2022 01:50:35 Test Item Value Reference Range Interpretation Comments NA (test code = 136 mmol/L 135-145 3759734152) K (test code = 5.2 mmol/L 3.5-5.0 H 7542789108) CL (test code = 102 mmol/L 98-108 3471564975) CO2 TOTAL (test code = 26 mmol/L 23-31 9767159009) AGAP (test code = 2-16 3360034840) BUN (test code = 49 mg/dL 7-23 H 6956244840) GLUCOSE (test code = 143 mg/dL 70-110 H 3972047950) CREATININE (test code = 2.26 mg/dL 0.60-1.25 H 8356570188) TOTAL BILI (test code = 0.4 mg/dL 0.1-1.3 7742742145) CALCIUM (test code = 8.2 mg/dL 8.6-10.6 L 4940299284) T PROTEIN (test code = 6.8 g/dL 6.3-8.2 4530726638) ALBUMIN (test code = 2.9 g/dL 3.5-5.0 L 8929455500) ALK PHOS (test code = 101 U/L 34-122 6310927538) ALTv (test code = 14 U/L 5-50 1742-6) AST(SGOT) (test code = 21 U/L 13-40 6256795230) eGFR (test code = mL/min/1.73m2 0583716532) RODRIGO (test code = RODRIGO) Association of [...] tests). Lab Interpretation Abnormal (test code = 91854-6) [facility] [id number] 01:37:54 Test Item Value Reference Range Interpretation [...] tions. Lab Interpretation (test Abnormal code = 32911-6) [facility] THRMPLAS [id number] 01:37:54 Test Item Value Reference Range Interpretation Comments APTT Patient (test code See_Comment H [Au tomated message] = 3173-2) The system [employer] h generated this result transmitted ref erence range: 26 - 36 Seconds. The reference range was not used to int erpret this result as normal/abnormal . Lab Interpretation (test Abnormal code = 23693-1) [facility] [id number] 01:33:12 Test Item Value Reference Range Interpretation Comments WBC (test code = See_Comment [Automated 1790-2) message] The sy stem which generated this result transmitted reference range : 4.20 - 10.70 10*3/?L. The reference range was not used to interpret this result as normal/abnormal . RBC (test code = See_Comment L [Automated 269-8) message] The sy stem which generated this [...] (test code = 54.2 fL 38.5-51.6 H 26532-0) RDW-CV (test code = 19.4 % 12.1-15.4 H 788-0) PLT (test code = See_Comment [Automated 777-3) message] The sy stem which generated this result transmitted reference range : 150 - 328 10*3/ ?L. The reference r kelin was not used to interpret this result as normal/abnormal . MPV (test code = 9.2 fL 9.8-13.0 L 30454-4) NRBC/100 WBC (test See_Comment [Automat ed code = 2581553427) message] The system which generated this result transmitted reference range : 0.0 - 10.0 /100 WBCs. The refer ence range was not u sed to interpret th is result as normal/abnormal . NRBC x10^3 (test code See_Comment [Auto mated = 3498284962) message] The s ystem which generated this result transmitted reference range : 10*3/?L. The reference range was not used to interpret this result as normal/abnormal . GRAN MAT (NEUT) % 75.8 % (test code = 770-8) IMM GRAN % (test code 0.80 % = 9102169659) LYMPH % (test code = 12.1 % 736-9) MONO % (test code = 8.3 % 5905-5) EOS % (test code = 2.5 % 713-8) BASO % (test code = 0.5 % 706-2) GRAN MAT x10^3(ANC) 4.56 10*3/uL 1.99-6.95 (test code = 8772484447) IMM GRAN x10^3 (test 0.05 10*3/uL 0.00-0.06 code = 0413888180) LYMPH x10^3 (test code 0.73 10*3/uL 1.09-3.23 L = 731-0) MONO x10^3 (test code 0.50 10*3/uL 0.36-1.02 = 742-7) EOS x10^3 (test code = 0.15 10*3/uL 0.06-0.53 711-2) BASO x10^3 (test code 0.03 10*3/uL 0.01-0.09 = 704-7) Lab Interpretation Abnormal (test code = 78021-2) [facility]2021-[facility]-28 13:35:14 Test Item Value Reference Range Interpretation Comments POCT GLU (test code = 4487453664) 160 mg/dL 70-110 H Lab Interpretation (test code = Abnormal 23849-1) [facility] METABOLIC PANEL (NA, K, CL, CO2, GLUCOSE, BUN, CREATININE, CA)2021-12-28 09:59:31 Test Item Value Reference Range Interpretation Comments NA (test code = 135 mmol/L 135-145 6872579062) K (test code = 3.8 mmol/L 3.5-5 1777615888) CL (test code = 107 mmol/L 98-108 3814067328) CO2 TOTAL (test code = 25 mmol/L 23-31 5579100446) AGAP (test code = 2-16 6217166189) BUN (test code = 42 mg/dL 7-23 H 0252827743) GLUCOSE (test code = 150 mg/dL 70-110 H 7648928161) CREATININE (test code = 2.01 mg/dL 0.6-1.25 H 8313603866) CALCIUM (test code = 7.6 mg/dL 8.6-10.6 L 6797953208) eGFR (test code = mL/min/1.73m2 2856863528) RODRIGO (test code = RODRIGO) Association of [...] tests). Lab Interpretation Abnormal (test code = 81918-9) [facility] WITH [id number] 09:37:28 Test Item Value Reference Range Interpretation Comments WBC (test code = See_Comment L [Automated 6690-2) message] The sy stem which [...] (test code = 52.0 fL 38.5-51.6 H 08552-1) RDW-CV (test code = 19.2 % 12.1-15.4 H 788-0) PLT (test code = See_Comment [Automated 777-3) message] The sy stem which generated this result transmitted reference range : 150 - 328 10*3/ ?L. The reference r kelin was not used to interpret this result as normal/abnormal . MPV (test code = 9.6 fL 9.8-13 L 30297-4) NRBC/100 WBC (test See_Comment [Automat ed code = 1925041564) message] The system which generated this result transmitted reference range : 0.0 - 10.0 /100 WBCs. The refer ence range was not u sed to interpret th is result as normal/abnormal . NRBC x10^3 (test code See_Comment [Auto mated = 9708252156) message] The s ystem which generated this result transmitted reference range : 10*3/?L. The reference range was not used to interpret this result as normal/abnormal . GRAN MAT (NEUT) % 75.3 % (test code = 770-8) IMM GRAN % (test code 0.60 % = 3875699375) LYMPH % (test code = 11.9 % 736-9) MONO % (test code = 9.6 % 5905-5) EOS % (test code = 2.3 % 713-8) BASO % (test code = 0.3 % 706-2) GRAN MAT x10^3(ANC) 2.34 10*3/uL 1.99-6.95 (test code = 6271015660) IMM GRAN x10^3 (test 0-0.06 code = 9476955353) LYMPH x10^3 (test code 0.37 10*3/uL 1.09-3.23 L = 731-0) MONO x10^3 (test code 0.30 10*3/uL 0.36-1.02 L = 742-7) EOS x10^3 (test code = 0.07 10*3/uL 0.06-0.53 711-2) BASO x10^3 (test code 0.01-0.09 = 704-7) Lab Interpretation Abnormal (test code = 83072-2) [facility] GLUCOSE (AUTOMATED)2021-12-28 00:57:50 Test Item Value Reference Range Interpretation Comments POCT GLU (test code = 0207916451) 146 mg/dL 70-110 H Lab Interpretation (test code = Abnormal 94928-2) [facility] GLUCOSE (AUTOMATED)2021-12-27 21:58:17 Test Item Value Reference Range Interpretation Comments POCT GLU (test code = 0390058762) 125 mg/dL 70-110 H Lab Interpretation (test code = Abnormal 77609-2) [facility] GLUCOSE (AUTOMATED)2021-12-27 16:47:36 Test Item Value Reference Range Interpretation Comments POCT GLU (test code = 4745010655) 121 mg/dL 70-110 H Lab Interpretation (test code = Abnormal 45313-5) [facility] GLUCOSE (AUTOMATED)2021-12-27 12:53:58 Test Item Value Reference Range Interpretation Comments POCT GLU (test code = 0158403073) 114 mg/dL 70-110 H Lab Interpretation (test code = Abnormal 23053-3) [facility] GLUCOSE (AUTOMATED)2021-12-27 01:17:27 Test Item Value Reference Range Interpretation Comments POCT GLU (test code = 8935988485) 184 mg/dL 70-110 H Lab Interpretation (test code = Abnormal 33140-4) [facility] GLUCOSE (AUTOMATED)2021-12-26 21:25:07 Test Item Value Reference Range Interpretation Comments POCT GLU (test code = 5732677625) 151 mg/dL 70-110 H Lab Interpretation (test code = Abnormal 37568-9) [facility] GLUCOSE (AUTOMATED)2021-12-26 17:40:52 Test Item Value Reference Range Interpretation Comments POCT GLU (test code = 5771044774) 148 mg/dL 70-110 H Lab Interpretation (test code = Abnormal 17414-0) [facility] GLUCOSE (AUTOMATED)2021-12-26 12:54:00 Test Item Value Reference Range Interpretation Comments POCT GLU (test code = 4087951495) 150 mg/dL 70-110 H Lab Interpretation (test code = Abnormal 30975-0) [facility] GLUCOSE (AUTOMATED)2021-12-26 10:22:39 Test Item Value Reference Range Interpretation Comments POCT GLU (test code = 7726425217) 150 mg/dL 70-110 H Lab Interpretation (test code = Abnormal 44657-6) [facility]21-[facility]26 01:21:28 Test Item Value Reference Range Interpretation Comments POCT GLU (test code = 3827498810) 136 mg/dL 70-110 H Lab Interpretation (test code = Abnormal 13450-5) [facility] METABOLIC PANEL (NA, K, CL, CO2, GLUCOSE, BUN, CREATININE, CA)2021-12-14 22:24:31 Test Item Value Reference Range Interpretation Comments NA (test code = 135 mmol/L 135-145 5290800801) K (test code = 5.5 mmol/L 3.5-5 H 9989789081) CL (test code = 105 mmol/L 98-108 9695093893) CO2 TOTAL (test code = 21 mmol/L 23-31 L 6994213839) AGAP (test code = 2-16 4759633545) BUN (test code = 44 mg/dL 7-23 H 2243083538) GLUCOSE (test code = 164 mg/dL 70-110 H 0707694736) CREATININE (test code = 1.79 mg/dL 0.6-1.25 H 3910152713) CALCIUM (test code = 7.9 mg/dL 8.6-10.6 L 3172855825) eGFR (test code = mL/min/1.73m2 9910086874) RODRIGO (test code = RODRIGO) Association of [...] tests). Lab Interpretation Abnormal (test code = 75759-0) [facility] WITH [id number] 22:14:09 Test Item Value Reference Range Interpretation [...] (test code = 52.1 fL 38.5-51.6 H 75909-8) RDW-CV (test code = 20.0 % 12.1-15.4 H 788-0) PLT (test code = See_Comment [Automated 777-3) message] The sy stem which generated this result transmitted reference range : 150 - 328 10*3/ ?L. The reference r kelin was not used to interpret this result as normal/abnormal . MPV (test code = 9.8 fL 9.8-13 44215-2) NRBC/100 WBC (test See_Comment [Automat ed code = 1694565988) message] The system which generated this result transmitted reference range : 0.0 - 10.0 /100 WBCs. The refer ence range was not u sed to interpret th is result as normal/abnormal . NRBC x10^3 (test code See_Comment [Auto mated = 9462858201) message] The s ystem which generated this result transmitted reference range : 10*3/?L. The reference range was not used to interpret this result as normal/abnormal . GRAN MAT (NEUT) % 79.6 % (test code = 770-8) IMM GRAN % (test code 0.90 % = 3024829476) LYMPH % (test code = 10.6 % 736-9) MONO % (test code = 7.4 % 5905-5) EOS % (test code = 1.2 % 713-8) BASO % (test code = 0.3 % 706-2) GRAN MAT x10^3(ANC) 4.60 10*3/uL 1.99-6.95 (test code = 3812031502) IMM GRAN x10^3 (test 0.05 10*3/uL 0-0.06 code = 5704228056) LYMPH x10^3 (test code 0.61 10*3/uL 1.09-3.23 L = 731-0) MONO x10^3 (test code 0.43 10*3/uL 0.36-1.02 = 742-7) EOS x10^3 (test code = 0.07 10*3/uL 0.06-0.53 711-2) BASO x10^3 (test code 0.01-0.09 = 704-7) Lab Interpretation Abnormal (test code = 65991-3) [facility] GLUCOSE (AUTOMATED)2021-12-09 16:40:51 Test Item Value Reference Range Interpretation Comments POCT GLU (test code = 0763099667) 200 mg/dL 70-110 H Lab Interpretation (test code = Abnormal 95467-2) [facility] GLUCOSE (AUTOMATED)2021-12-09 12:53:24 Test Item Value Reference Range Interpretation Comments POCT GLU (test code = 7067470926) 197 mg/dL 70-110 H Lab Interpretation (test code = Abnormal 35228-9) [facility] GLUCOSE (AUTOMATED)2021-12-09 01:58:46 Test Item Value Reference Range Interpretation Comments POCT GLU (test code = 4658302020) 138 mg/dL 70-110 H Lab Interpretation (test code = Abnormal 77645-0) [facility] GLUCOSE (AUTOMATED)2021-12-08 22:02:54 Test Item Value Reference Range Interpretation Comments POCT GLU (test code = 4435171268) 123 mg/dL 70-110 H Lab Interpretation (test code = Abnormal 31897-0) [facility] GLUCOSE (AUTOMATED)2021-12-08 17:18:39 Test Item Value Reference Range Interpretation Comments POCT GLU (test code = 6962328014) 200 mg/dL 70-110 H Lab Interpretation (test code = Abnormal 18932-6) [facility] GLUCOSE (AUTOMATED)2021-12-08 14:20:51 Test Item Value Reference Range Interpretation Comments POCT GLU (test code = 1209553946) 189 mg/dL 70-110 H Lab Interpretation (test code = Abnormal 30984-0) [facility] GLUCOSE (AUTOMATED)2021-12-08 02:14:54 Test Item Value Reference Range Interpretation Comments POCT GLU (test code = 3456141077) 276 mg/dL 70-110 H Lab Interpretation (test code = Abnormal 86126-3) [facility]cos[facility] Hemoglobin (A1C)2021-12-08 00:06:25 Test Item Value Reference Range Interpretation Comments HGB A1C (test code = 6.6 % 4-5.7 H 4548-4) RODRIGO (test code = RODRIGO) Reference RangesNormal: <5.7%Prediabetes: 5.7 - 6.4%Diabetes: > 6.5% Lab Interpretation (test Abnormal code = 86752-7) [facility] CentralMagnesium [id number] 23:59:59 Test Item Value Reference Range Interpretation Comments MAGNESIUM (test code = 6231908429) 2.6 mg/dL 1.7-2.4 H Lab Interpretation (test code = Abnormal 86338-2) [facility] CentralLipid Panel (Total Cholesterol, Triglycerides, HDL) - [id number] 23:59:59 Test Item Value Reference Range Interpretation Comments CHOL (test code = 106 mg/dL 120-200 L 8604845757) HDL (test code = 20 mg/dL See_Comment L [Automated message] 4402528620) The system [employer] generated this result transmit ros reference range : >=40. The refer ence range was not u sed to interpret th is result as normal/abnormal . HDLC RATIO (test code = See_Comment H [Au tomated message] 1436691060) The system [employer] generated this result transmit ros reference range : <=5.0. The refe rence range was not u sed to interpret th is result as normal/abnormal . TRIG (test code = 86 mg/dL 30-170 6068477708) LDL CHOL (test code = 69 mg/dL See_Comment [Auto mated message] 52764-6) The system [employer] generated this result transmit ros reference range : <=160. The refe rence range was not u sed to interpret th is result as normal/abnormal . VLDL (test code = 17 mg/dL 5-60 3288346981) Lab Interpretation (test Abnormal code = 25793-6) [facility] CentralPhosphorus [id number] 23:59:39 Test Item Value Reference Range Interpretation Comments PHOSPHORUS (test code = 4864296129) 4.9 mg/dL 2.5-5 Lab Interpretation (test code = Normal 95161-3) [facility] CentralN-TERMINAL [id number] 21:09:22 Test Item Value Reference Range Interpretation Comments NT-proBNP (test code 1600 pg/mL See_Comment H [Autom ated = 1681471468) message] The system which generated this result transmitted reference range : <=125. The reference range was not used to interpret this result as normal/abnormal . RODRIGO (test code = RODRIGO) Biotin has been reported to cause a negative bias, interpret results relative to patient's use of biotin. Lab Interpretation Abnormal (test code = 06092-4) [facility] Central[facility]ine [id number] 19:56:54 Test Item Value Reference Range Interpretation Comments CK (test code = 8207894576) 28 U/L 33-194 L Lab Interpretation (test code = Abnormal 12609-6) [facility]. METABOLIC PANEL (73728)2021-12-07 16:38:09 Test Item Value Reference Range Interpretation Comments NA (test code = 137 mmol/L 135-145 3585950376) K (test code = 5.4 mmol/L 3.5-5 H 8141818137) CL (test code = 106 mmol/L 98-108 1083705138) CO2 TOTAL (test code = 23 mmol/L 23-31 1540239738) AGAP (test code = 2-16 0420842842) BUN (test code = 49 mg/dL 7-23 H 5620888510) GLUCOSE (test code = 154 mg/dL 70-110 H 2844043278) CREATININE (test code = 2.34 mg/dL 0.6-1.25 H 6734065674) TOTAL BILI (test code = 0.6 mg/dL 0.1-1.4 8231891821) CALCIUM (test code = 8.0 mg/dL 8.6-10.6 L 0789709950) T PROTEIN (test code = 6.1 g/dL 6.3-8.2 L 2916085444) ALBUMIN (test code = 2.5 g/dL 3.5-5 L 9963855869) ALK PHOS (test code = 100 U/L 34-122 9900426979) ALTv (test code = 15 U/L 5-50 1742-6) AST(SGOT) (test code = 23 U/L 13-40 4332851425) eGFR (test code = mL/min/1.73m2 4040749903) RODRIGO (test code = RODRIGO) Association of [...] tests). Lab Interpretation Abnormal (test code = 02076-4) [facility]ACT[facility] PART[facility] THRMPLAS [id number] 16:37:12 Test Item Value Reference Range Interpretation Comments APTT Patient (test See_Comment [Automat ed code = 3173-2) message] The system which generated this result transmitted reference range : 23 - 38 Seconds . The reference range was not used to interpr et this result as normal/abnormal . RODRIGO (test code = RODRIGO) The [facility] patient population mean normal value for aPTT is 30 seconds. Lab Interpretation Normal (test code = 96072-2) [facility] CentralPROTHROMBIN TIME / [id number] 16:35:10 Test Item Value Reference Range Interpretation [...] tions. Lab Interpretation (test Abnormal code = 30111-6) [facility] WITH [id number] 16:11:30 Test Item Value Reference Range Interpretation [...] (test code = 53.5 fL 38.5-51.6 H 39554-1) RDW-CV (test code = 20.5 % 12.1-15.4 H 788-0) PLT (test code = See_Comment [Automated 777-3) message] The sy stem which generated this result transmitted reference range : 150 - 328 10*3/ ?L. The reference r kelin was not used to interpret this result as normal/abnormal . MPV (test code = 10.0 fL 9.8-13 01427-1) NRBC/100 WBC (test See_Comment [Automat ed code = 7524484473) message] The system which generated this result transmitted reference range : 0.0 - 10.0 /100 WBCs. The refer ence range was not u sed to interpret th is result as normal/abnormal . NRBC x10^3 (test code See_Comment [Auto mated = 0987392907) message] The s ystem which generated this result transmitted reference range : 10*3/?L. The reference range was not used to interpret this result as normal/abnormal . GRAN MAT (NEUT) % 82.5 % (test code = 770-8) IMM GRAN % (test code 0.90 % = 2433367631) LYMPH % (test code = 7.8 % 736-9) MONO % (test code = 7.3 % 5905-5) EOS % (test code = 1.2 % 713-8) BASO % (test code = 0.3 % 706-2) GRAN MAT x10^3(ANC) 5.74 10*3/uL 1.99-6.95 (test code = 8509279415) IMM GRAN x10^3 (test 0.06 10*3/uL 0-0.06 code = 7431916892) LYMPH x10^3 (test code 0.54 10*3/uL 1.09-3.23 L = 731-0) MONO x10^3 (test code 0.51 10*3/uL 0.36-1.02 = 742-7) EOS x10^3 (test code = 0.08 10*3/uL 0.06-0.53 711-2) BASO x10^3 (test code 0.01-0.09 = 704-7) Lab Interpretation Abnormal (test code = 01660-1) [facility]"
--- NOTE | 2022-09-17 14:12 | EDPHYS ---
Physician Documentation [facility] Name: Mc Willingham Age: 67 yrs Sex: Male : 1955 Arrival Date: 09/17/2022 Time: 12:21 Bed 20 Private MD: ED Physician Justin Martinez HPI: 09/17 14:12 This 67 yrs old Male presents to ER via Ambulatory with complaints of ms3 Abdominal Swelling. 14:12 67-year-old male with past medical history of liver cirrhosis presents for abdominal ms3 distention. Patient states his abdomen was last drained 24 days ago. Patient states he typically has paracentesis every 14 days. Patient states he is also on lactulose. Patient states his abdominal pain is a pressure and rates it an 8/10. Patient denies alleviating or inciting factors. Historical: - Allergies: 12:30 No Known Allergies; ap3 - Home Meds: 12:30 Lactulose 30 Oral for constipation [Active]; ap3 - PMHx: 12:30 cirrhosis of liver; ap3 - Immunization history:: Client reports receiving the 2nd dose of the Covid vaccine. - Social history:: Smoking status: Patient denies any tobacco usage or history of. ROS: 14:17 Constitutional: Negative for fever, and chills. Neck: Negative for injury, pain, and ms3 swelling, Cardiovascular: Negative for chest pain, and palpitations. Respiratory: Negative for shortness of breath, cough, wheezing, and pleuritic chest pain. 14:17 MS/Extremity: Negative for injury and deformity, Skin: Negative for injury, rash, and discoloration, Neuro: Negative for headache, weakness, numbness, tingling. 14:17 Abdomen/GI: Positive for abdominal pain. 14:17 All other systems are negative. Exam: 14:17 Constitutional: This is a well developed, well nourished patient who is awake, alert, ms3 and in no acute distress. Head/Face: Normocephalic, atraumatic. Chest/axilla: Normal chest wall appearance and motion. Nontender with no deformity. Cardiovascular: Regular rate and rhythm with a normal S1 and S2. No gallops, murmurs, or rubs. Normal PMI, no JVD. No pulse deficits. Respiratory: Lungs have equal breath sounds bilaterally, clear to auscultation and percussion. No rales, rhonchi or wheezes noted. No increased work of breathing, no retractions or nasal flaring. 14:17 Abdomen/GI: Inspection: abdomen appears normal, Bowel sounds: normal, Palpation: nontender. Vital Signs: 12:29 BP 140 / 86; Pulse 73; Resp 18; Temp 98.2; Pulse Ox 100% ; ap3 12:33 Weight 81.65 kg; Pain 8/10; ap3 14:11 BP 147 / 93; Pulse 66; Resp 18; Pulse Ox 100% on R/A; ld1 14:12 BP 147 / 93; Pulse 66; Resp 18; Pulse Ox 100% on R/A; tm3 12:33 Pain Scale: Adult ap3 MDM: 12:52 Patient medically screened. ms3 14:17 Differential diagnosis: Ascities vs Liver Cirrhosis. Data reviewed: vital signs, nurses ms3 notes, and as a result, I will discharge patient. Management of patient was discussed with the following: Veneer Clipper: IR for Paracentesis. Care significantly affected by the following chronic conditions: Liver Disease. Care significantly affected by the following Social Determinants of Health: Poor access to healthcare and/or lack of insurance. Counseling: I had a detailed discussion with the patient and/or guardian regarding: the historical points, exam findings, and any diagnostic results supporting the discharge/admit diagnosis, the need for outpatient follow up, to return to the emergency department if symptoms worsen or persist or if there are any questions or concerns that arise at home. Response to treatment: the patient's symptoms have markedly improved after treatment, and as a result, I will discharge patient. Special discussion: I discussed with the patient/guardian in detail that at this point there is no indication for admission to the hospital. It is understood, however, that if the symptoms persist or worsen the patient needs to return immediately for re-evaluation. 14:22 ED course: Patient's blood pressure remains normal status post paracentesis. Patient ms3 states his symptoms have markedly improved. Patient to follow-up with Dr. Casey. Discussed with patient scheduling paracenteses. All questions were answered. Return precautions discussed include worsening symptoms, or any other concerns.. 09/17 13:03 Order name: Paracentesis Proc Guidance EDMS Administered Medications: No medications were administered Disposition Summary: 09/17/22 14:12 Discharge Ordered Location: Home ms3 Condition: Stable ms3 Diagnosis - Ascities ms3 - Other cirrhosis of liver ms3 Followup: ms3 - With: Juan Luis Sahu MD - When: 2 - 3 days - Reason: Recheck today's complaints Discharge Instructions: - Discharge Summary Sheet ms3 - Ascites ms3 - Cirrhosis ms3 Forms: - Medication Reconciliation Form ms3 - Thank You Letter ms3 - Antibiotic Education ms3 - Prescription Opioid Use ms3 - Patient Portal Instructions.htm ms3 Prescriptions: - Lactulose 10 gram/15 mL Oral Solution - take 30 milliliters by ORAL route every 12 hours; 600 milliliter; Refills: 0, ms3 Product Selection Permitted Signatures: Dispatcher [employer] Liz Campos RN RN ap3 Justin Martinez DO DO ms3 Corrections: (The following items were deleted from the chart) 12:32 12:30 PMHx: diabetes mellitus; ap3 ap3 12:32 12:30 PMHx: Hypertensive disorder; ap3 ap3
--- NOTE | 2022-09-17 14:12 | ER ---
Nurse's Notes [facility] Name: Mc Willingham Age: 67 yrs Sex: Male : 1955 Arrival Date: 09/17/2022 Time: 12:21 Bed 20 Private MD: Diagnosis: Ascities;Other cirrhosis of liver Presentation: 09/17 12:29 Chief complaint: Patient states: he is having some abdominal swelling. patient reports ap3 he typically has a scheduled paracentesis, but hasn't had one in 28 days. Coronavirus screen: At this time, the client does not indicate any symptoms associated with coronavirus-19. Ebola Screen: No symptoms or risks identified at this time. Initial Sepsis Screen: Does the patient meet any 2 criteria? No. Patient's initial sepsis screen is negative. Does the patient have a suspected source of infection? No. Patient's initial sepsis screen is negative. Risk Assessment: Do you want to hurt yourself or someone else? Patient reports no desire to harm self or others. Onset of symptoms is unknown. 12:29 Method Of Arrival: Ambulatory ap3 12:29 Acuity: POPPY 3 ap3 Triage Assessment: 12:32 General: Appears in no apparent distress. Behavior is calm, cooperative. Pain: ap3 Complains of pain in abdomen. Pain: Pain currently is 8 out of 10 on a pain scale. Neuro: Level of Consciousness is awake, alert, obeys commands, Oriented to person, place, time. Cardiovascular: Patient's skin is warm and dry. Respiratory: Airway is patent Respiratory effort is even, unlabored, Respiratory pattern is regular, symmetrical. GI: Abdomen is distended. Historical: - Allergies: 12:30 No Known Allergies; ap3 - Home Meds: 12:30 Lactulose 30 Oral for constipation [Active]; ap3 - PMHx: 12:30 cirrhosis of liver; ap3 - Immunization history:: Client reports receiving the 2nd dose of the Covid vaccine. - Social history:: Smoking status: Patient denies any tobacco usage or history of. Screenin:32 [facility] ED Fall Risk Assessment (Adult) History of falling in the last 3 months, ap3 including since admission No falls in past 3 months (0 pts). Abuse screen: Denies threats or abuse. Nutritional screening: No deficits noted. Tuberculosis screening: No symptoms or risk factors identified. Assessment: 12:50 Reassessment: Hospital staff came to transport patient for procedure. ld1 14:09 Reassessment: Patient and/or family updated on plan of care and expected duration. Pain ld1 level reassessed. Patient is alert, oriented x 3, equal unlabored respirations, skin warm/dry/pink. ERP at bedside assessing patient. Patient states feeling better. Patient states symptoms have improved. Vital Signs: 12:29 BP 140 / 86; Pulse 73; Resp 18; Temp 98.2; Pulse Ox 100% ; ap3 12:33 Weight 81.65 kg; Pain 8/10; ap3 14:11 BP 147 / 93; Pulse 66; Resp 18; Pulse Ox 100% on R/A; ld1 14:12 BP 147 / 93; Pulse 66; Resp 18; Pulse Ox 100% on R/A; tm3 12:33 Pain Scale: Adult ap3 ED Course: 12:24 Patient arrived in ED. mr 12:27 Justin Martinez DO is Attending Physician. ms3 12:30 Triage completed. ap3 12:33 Arm band placed on left wrist. ap3 13:00 Yola Martinez, RN is Primary Nurse. ld1 14:07 Paracentesis Proc Guidance In Process Unspecified. EDMS 14:10 Patient has correct armband on for positive identification. Placed in gown. Bed in low ld1 position. Call light in reach. Side rails up X2. diving board assembler on. Pulse ox on. NIBP on. Door closed. Noise minimized. Warm blanket given. 14:10 No provider procedures requiring assistance completed. Patient did not have IV access ld1 during this emergency room visit. 14:11 Juan Luis Sahu MD is Referral Physician. ms3 Administered Medications: No medications were administered Medication: 14:10 VIS not applicable for this client. ld1 Outcome: 14:12 Discharge ordered by . ms3 14:20 Discharged to home ambulatory, with family. ld1 14:20 Condition: stable 14:20 Discharge instructions given to patient, family, Instructed on discharge instructions, follow up and referral plans. medication usage, Demonstrated understanding of instructions, follow-up care, medications, Prescriptions given X 1. 14:20 Patient left the ED. ld1 Signatures: Dispatcher [employer] EDPR Joe Henderson tm3 Noelle Whittington mr Liz Juarez RN RN ap3 MartinezJustin DO DO ms3 Yola Martinez RN RN ld1 Corrections: (The following items were deleted from the chart) 12:30 PMHx: diabetes mellitus; ap3 ap3 32 12:30 PMHx: Hypertensive disorder; ap3 ap3
[2022-09-17 15:18] VITALS: TEMP 98.2; O2SAT 100
[2022-09-17 15:21] VITALS: BP 147/93
--- NOTE | 2022-09-18 13:31 | RAD REPORT ---
EXAM DESCRIPTION: US - Paracentesis Proc Guidance - 09/17/2022 2:06 pm CLINICAL HISTORY: ASCITES/THERAP. PARA PER ER Ascites COMPARISON: Paracentesis Proc Guidance dated 08/24/2022 FINDINGS: Informed consent was obtained and time-out was performed. Patient's abdomen was prepped and draped in the usual sterile fashion. 1% lidocaine was used for loca l anesthetic purposes. A small skin incision was made. A paracentesis catheter was guided into the peroneal cavity under son ographic guidance. A small amount of fluid was set aside for possible lab studies. 4L paracentesis was performed. The patient tolerated the procedure well. Patient was returned to the ER. IMPRESSION: Successful ultrasound-guided paracentesis.
== END 2022-09-17 14:20 | disposition home or self-care (01) ==
LOC: ER 12:21
PROC: 0W9G3ZZ Drainage of Peritoneal Cavity, Percutaneous Approach (ICD-10-PCS; principal; 2022-09-17)
DX: R18.8 Other ascites (principal); K74.69 Other cirrhosis of liver
CPT/HCPCS: 49083; 99284

== ENCOUNTER 2022-09-18 21:40 | Observation (INO) | payer SELFPAY ==
--- OUTSIDE RECORDS SUMMARY | 2022-09-18 21:47 | XMS REPORT | Continuity of Care Document ---
:1955 Author Organization [facility] t Address [address] [place] [address] [address] [place] [address] Care Team Providers Name Role Phone SAIRA NAVARRETE Kobi Primary Care Physician Unavailable LEILA CHAPMAN Attending Clinician Unavailable MIKE COPPOLA Attending Clinician Unavailable Mike Pulido Attending Clinician Leila Chapman MD Attending Clinician Doctor Unassigned, [place] Attending Clinician Unavailable JOSÉ MIGUEL HUMPHRIES Attending [...] chronic 3-30 ity of kidney kidney 00:00: [place] disease disease 00 Medical Branch Ascites Ascites Disease Active 2021-03 Univers 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 [place]y of alcoholic alcoholic [place] cirrhosis [place] Branch Alcoholic Alcoholic Disease Active 2021-03 Uni vers cirrhosis cirrhosis 0-18 ity of of liver of liver 00:00: [place] with with 00 Medical ascites ascites Branch 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 liver 9-30 ity of 00:00: [place] 00 Medical Branch Tense Tense Disease Active Univers ascites ascites 9-30 ity of 00:00: [place] 00 Medical Branch No known No known Disease Unive rs active active ity of problems problems [place] [facility] Allergies, Adverse Reactions, Alerts Allergy Allergy Status Severity Reaction(s) Onset Inactive Treating Comm ents Source Name Type Date Date Clinician NO KNOWN Drug Active Univers ALLERGIE Class ity of S [place] [facility] Social History Social Habit Start Date Stop Date Quantity Comments Source History SDOH Social Unive rsity of Connections [facility] Med ical Together Branch History SDOH Social Unive rsity of Connections [facility] Medical Branch History SDOH Social Unive rsity of Connections [place] [facility] Membership Branch History SDOH Social Unive rsity of Connections [place] [facility] Meetings Branch History of tobacco Cigarette Smoker University of use [facility] Branch Exposure to 2022-05-26 2022-06-05 Not sure University of SARS-CoV-2 (event) 00:00:00 06:46:00 [facility] Branch Alcohol intake 2022-06-05 2022-06-05 Current drinker Unive rsity of 00:00:00 00:00:00 of alcohol [place] Medical (finding) Branch History SDOH 2022-04-11 2022-04-11 1 University o f Alcohol Frequency 00:00:00 00:00:00 [facility] edical Branch History SDOH 2022-04-11 2022-04-11 0 University o f Alcohol Std Drinks 00:00:00 00:00:00 [place] [facility] History SDOH 2022-04-11 2022-04-11 1 University o f Alcohol Binge 00:00:00 00:00:00 [place] Medic al Branch History SDOH Social 2022-04-11 2022-04-11 5 Unive rsity of Connections Phone 00:00:00 00:00:00 [place] M edical Branch History SDOH Social 2022-04-11 2022-04-11 6 Unive rsity of Connections Living 00:00:00 00:00:00 [place] [facility] History SDOH 2022-04-11 2022-04-11 0 University o f Physical Activity 00:00:00 00:00:00 [facility] edical DPW Branch History SDNH 2022-04-11 2022-04-11 0 University o f Physical Activity 00:00:00 00:00:00 [facility] edical MPS Branch History SDOH 2022-04-11 2022-04-11 5 University o f Financial 00:00:00 00:00:00 [place] [facility] History SDOH Food 2022-04-11 2022-04-11 1 Univers ity of Worry 00:00:00 00:00:00 [place] [facility] History SDOH Food 2022-04-11 2022-04-11 1 Univers ity of Scarcity 00:00:00 00:00:00 [place] [facility] History SDNH 2022-04-11 2022-04-11 2 University o f Transport Med 00:00:00 00:00:00 [place] Medic al Branch History [facility] 2022-04-11 2022-04-11 2 [place] o f Transport Non-Med 00:00:00 [facility] Tobacco use and 2021-12-07 2021-12-07 Smokeless Universit y of exposure 00:00:00 00:00:00 tobacco non-user [facility] dical Branch Education 2021-12-07 2021-12-07 14 University of 00:00:00 00:00:00 [facility] Tobacco Comment 2021-12-07 2021-12-07 Quit 3-4 years Unive rsity of 00:00:00 00:00:00 [facility] Sex [birth year] Universit y of 00:00:00 00:00:00 [facility] Smoking Status Start Date Stop Date Source Tobacco smoking [facility] [place] consumption unknown Medical Bran ch Ex-smoker 2021-12-07 00:00:00 2021-12-07 University o f [place] 00:00:00 Medical Branch Medications Ordered Filled Start [...] by ity of tablet 14:07: mouth in [place] [address] the Medical morning Branch and 1 tablet in the evening. pantoprazol 2023-0 Yes 40mg Take 1 Univ ers e 40 mg EC 3-30 tablet by ity of tablet 14:07: mouth in [place] [address] the Medical morning Branch and 1 tablet in the evening. pantoprazol 2023-0 Yes 40mg Take 1 Univ ers e 40 mg EC 3-30 tablet by ity of tablet 14:07: mouth in [place] [address] the Medical morning Branch and 1 tablet in the evening. furosemide 2023-0 Yes 40mg Take 1 Unive rs 40 mg 3-30 tablet by ity of tablet 00:00: mouth [place] 00 every Medical morning Branch and evening. lactulose 2023-0 Yes [id number] 30mL Take 30 mL Univers 10 gram/15 3-30 by mouth ity o f mL solution 00:00: in the morning. Medical Branch sulfamethox 2023-0 Yes [id number] 1{tbl} Take 1 Univers azole-trime 3-30 tablet by ity of thoprim 00:00: mouth in [place] (BACTRI) 00 the Medical 400-80 mg morning. Branch per tablet spironolact 2023-0 Yes 200mg Take 8 Uni vers one 25 mg 3-30 tablets by ity of tablet 00:00: mouth in [place] 00 the Medical morning. Branch furosemide 2023-0 Yes 40mg Take 1 Unive rs 40 mg 3-30 tablet by ity of tablet 00:00: mouth [place] 00 every Medical morning Branch and evening. lactulose 2023-0 Yes [id number] 30mL Take 30 mL Univers 10 gram/15 3-30 by mouth ity o f mL solution 00:00: in the [facility] 00 morning. Medical Branch sulfamethox 2023-0 Yes [id number] 1{tbl} Take 1 Univers azole-trime 3-30 tablet by ity of thoprim 00:00: mouth in [place] (BACTRIM) 00 the Medical 400-80 mg morning. Branch per tablet spironolact 2023-0 Yes 200mg Take 8 Uni vers one 25 mg 3-30 tablets by ity of tablet 00:00: mouth in [place] 00 the Medical morning. Branch furosemide 3-0 Yes 40mg Take 1 Unive rs 40 mg 3-30 tablet by ity of tablet 00:00: mouth [place] every Medical morning Branch and evening. lactulose 3-0 Yes [id number] 30mL Take 30 mL Univers 10 gram/15 3-30 by mouth ity o f mL solution 00:00: in the morning. Medical Branch sulfamethox 2022-0 Yes [id number] 1{tbl} Take 1 Univers azole-trime 3-30 tablet by ity of thoprim 00:00: mouth in [place] (BACTRIM) 00 the Medical 400-80 mg morning. Branch per tablet spironolact 2022-0 Yes 200mg Take 8 Uni vers one 25 mg 3-30 tablets by ity of tablet 00:00: mouth in [place] the Medical morning. Branch furosemide 2022-0 Yes 40mg Take 1 Unive rs 40 mg 3-30 tablet by ity of tablet 00:00: mouth [place] every Medical morning Branch and evening. lactulose 2022-0 Yes [id number] 30mL Take 30 mL Univers 10 gram/15 3-30 by mouth ity o f mL solution 00:00: in the morning. Medical Branch sulfamethox 2022-0 Yes [id number] 1{tbl} Take 1 Univers azole-trime 3-30 tablet by ity of thoprim 00:00: mouth in [place] (BACTRIM) 00 the Medical 400-80 mg morning. Branch per tablet spironolact 3-0 Yes 200mg Take 8 Uni vers one 25 mg 3-30 tablets by ity of tablet 00:00: mouth in [place] 00 the Medical morning. Branch traMADoL 50 2022-0 Yes [id number] 50mg Take 1 Univ ers mg tablet 3-29 tablet by ity o f 00:00: mouth [place] 00 every 8 Medical (eight) Branch hours as needed for Pain (scale 1-3). Indication s: acute pain traMADoL 50 2023-0 Yes [id number] 50mg Take 1 Univ ers mg tablet 3-29 tablet by ity o f 00:00: mouth [place] [address] every 8 Medical (eight) Branch hours as [...] g/L of ascitic fluid removed lactulose Yes [id number] 30mL Take 30 mL Univers 10 gram/15 3-24 by mouth ity o f mL oral 00:00: in the [place] solution 00 morning. Medical Branch lactulose 0 Yes [id number] 30mL Take 30 mL Univers 10 gram/15 3-24 by mouth ity o f mL oral 00:00: in the [place] solution 00 morning. Medical Branch lactulose 0 Yes [id number] 30mL Take 30 mL Univers 10 gram/15 3-24 by mouth ity o f mL oral 00:00: in the [place] solution 00 morning. Medical Branch lactulose 2022-0 2022- No [id number] 30mL Take 30 mL Univers 10 gram/15 3-24 03-30 by mouth ity of mL oral 00:00: 00:00 in the [place] solution 00 :00 morning. Medical Branch lactulose 2022-0 2022- No [id number] 30mL Take 30 mL Univers 10 gram/15 05-3130 by mouth ity of mL oral 00:00: 00:00 in the [place] solution 00 :00 morning. Medical Branch lactulose 2022-0 2022- No [id number] 30mL Take 30 mL Univers 10 gram/15 05-31 by mouth ity of mL oral 00:00: 00:00 in the [place] solution 00 :00 morning. Medical Branch pantoprazol 2022-0 Yes 40mg Take 40 mg Univers e 40 mg EC 2-02 by mouth ity o f tablet 17:45: in the [place] [address] morning Medical and 40 mg Branch in the evening. pantoprazol 2022-0 Yes 40mg Take 40 mg Univers e 40 mg EC 2-02 by mouth ity o f tablet 17:45: in the [place] [address] morning Medical and 40 mg Branch in the evening. pantoprazol 3-0 Yes 40mg Take 40 mg Univers e 40 mg EC 2-02 by mouth ity o f tablet 17:45: in the [place] [address] morning Medical and 40 mg Branch in the evening. pantoprazol 3-0 Yes 40mg Take 40 mg Univers e 40 mg EC 2-02 by mouth ity o f tablet 17:45: in the [place] [address] morning Medical and 40 mg Branch in [...] mouth ity of tablet 15:02: 00:00 every [place] 42 :00 morning Medical and Branch evening. spironolact 2022- No 25mg Take 25 mg Univers one 04-11 by mouth ity of (ALDACTONE) 15:02: 00:00 in the [facility] as 25 mg 42 :00 morning. [...] 04-11 Oral, ity of (TYLENOL) 02:53: Q6HPRN, [place] tablet 650 20 Starting Medic al mg on Fri04/10/22 at 2052, Until Discontinu ed, Routine, Pain (scale 1-3) sulfamethox 2022-0 2022- No [id number] 1{tbl} Take 1 Univers azole-trime 04-11 03 tablet by i ty of thoprim 00:00: 05:59 mouth in [place] (BACTRIM 00 :00 the Medical DS) 800-160 morning Branc h mg per for 30 tablet days. furosemide 2022-0 2022- No [id number] 40mg Take 1 Univers 40 mg 04-11 tablet by ity of tablet 00:00: 05:59 mouth [place] 00 :00 every Medical morning Branch and evening for 30 days. spironolact 2022-0 2022- No [id number] 200mg Take 2 Univers one 04-11 [id number] tablets by ity of (ALDACTONE) 00:00: 05:59 [place] 100 mg 00 :00 the Medical tablet morning Branch for 30 days. furosemide 2022-0 3- No 40mg Take 1 Univ ers 40 mg 03-20 tablet by ity of tablet 00:00: 00:00 mouth. [place] 00 :00 Medical Branch spironolact 3-0 2023- No 25mg Take 1 Uni vers one 25 mg 03-20 tablet by ity of tablet 00:00: 00:00 mouth. [place] 00 :00 Medical Branch furosemide 2022-0 2023- No 40mg Take 1 Univ ers 40 mg 03-2030 tablet by ity of tablet 00:00: 00:00 mouth. [place] 00 :00 Medical Branch spironolact 3-0 2023- No 25mg Take 1 Uni vers one 25 mg 03-2030 tablet by ity of tablet 00:00: 00:00 mouth. [place] 00 :00 Medical Branch furosemide 2022-0 3- No 40mg Take 1 Univ ers 40 mg 03-20 tablet by ity of tablet 00:00: 00:00 mouth. [place] 00 :00 Medical Branch spironolact 3-0 2023- No 25mg Take 1 Uni vers one 25 mg 03-2030 tablet by ity of tablet 00:00: 00:00 mouth. [place] 00 :00 Medical Branch furosemide 2021- Yes 40mg Take 40 mg U nivers 40 mg 0-21 by mouth ity of tablet 13:09: every [place] [address] morning Medical and Branch evening. furosemide 2021-03 Yes 40mg Take 40 mg U nivers 40 mg 0-21 by mouth ity of tablet 13:09: every [place] [address] morning Medical and Branch evening. furosemide 2021-03 Yes 40mg Take 40 mg U nivers 40 mg 0-21 by mouth ity of tablet 13:09: every [place] [address] morning Medical and Branch evening. furosemide 2021-1 Yes 40mg Take 40 mg U nivers 40 mg 0-21 by mouth ity of tablet 13:09: every [place] [address] morning Medical and Branch evening. furosemide 2021-1 Yes 40mg Take 40 mg U nivers 40 mg 0-21 by mouth ity of tablet 13:09: every [place] [address] morning Medical and Branch evening. furosemide 2021-1 Yes 40mg Take 40 mg U nivers 40 mg 0-21 by mouth ity of tablet 13:09: every [place] [address] morning Medical and Branch evening. furosemide 2021- Yes 40mg Take 40 mg U nivers 40 mg 0-21 by mouth ity of tablet 13:09: every [place] [address] morning Medical and Branch evening. furosemide 2021- Yes 40mg Take 40 mg U nivers 40 mg 0-21 by mouth ity of tablet 13:09: every [place] [address] morning Medical and Branch evening. furosemide 2021- Yes 40mg Take 40 mg U nivers 40 mg 0-21 by mouth ity of tablet 13:09: every [place] [address] morning Medical and Branch evening. furosemide 2021- Yes 40mg Take 40 mg U nivers 40 mg 0-21 by mouth ity of tablet 13:09: every [place] [address] morning Medical and Branch evening. furosemide 2021- Yes 40mg Take 40 mg U nivers 40 mg 0-21 by mouth ity of tablet 13:09: every [place] [address] morning Medical and Branch evening. pantoprazol 2021- Yes 40mg Take 40 mg Univers e 40 mg EC 0-21 by mouth ity o f tablet 13:09: in the [place] [address] morning Medical and 40 mg Branch in the evening. pantoprazol 2021-1 Yes 40mg Take 40 mg Univers e 40 mg EC 0-21 by mouth ity o f tablet 13:09: in the [place] [address] morning Medical and 40 mg Branch in the evening. pantoprazol 2022-1 Yes 40mg Take 40 mg Univers e 40 mg EC 0-21 by mouth ity o f tablet 13:09: in the [place] [address] morning Medical and 40 mg Branch in the evening. pantoprazol 2021-1 Yes 40mg Take 40 mg Univers e 40 mg EC 0-21 by mouth ity o f tablet 13:09: in the [place] [address] morning Medical and 40 mg Branch in the evening. pantoprazol 2021-03 Yes 40mg Take 40 mg Univers e 40 mg EC 0-21 by mouth ity o f tablet 13:09: in the [place] [address] morning Medical and 40 mg Branch in the evening. pantoprazol 2021-03 Yes 40mg Take 40 mg Univers e 40 mg EC 0-21 by mouth ity o f tablet 13:09: in the [place] [address] morning Medical and 40 mg Branch in the evening. pantoprazol 2021-03 Yes 40mg Take 40 mg Univers e 40 mg EC 0-21 by mouth ity o f tablet 13:09: in the [place] [address] morning Medical and 40 mg Branch in the evening. pantoprazol 2021-03 Yes 40mg Take 40 mg Univers e 40 mg EC 0-21 by mouth ity o f tablet 13:09: in the [place] [address] morning Medical and 40 mg Branch in the evening. pantoprazol 2021-03 Yes 40mg Take 40 mg Univers e 40 mg EC 0-21 by mouth ity o f tablet 13:09: in the [place] [address] morning Medical and 40 mg Branch in the evening. pantoprazol 2021-03 Yes 40mg Take 40 mg Univers e 40 mg EC 0-21 by mouth ity o f tablet 13:09: in the [place] [address] morning Medical and 40 mg Branch in the evening. pantoprazol 2021-03 Yes 40mg Take 40 mg Univers e 40 mg EC 0-21 by mouth ity o f tablet 13:09: in the [place] [address] morning Medical and 40 mg Branch in the evening. albumin 2021-03 202- No [id number] 50g 50 g, IV Univers (ALBUMINAR 0-21 [...] 00 First dose Med ical mg on [facility] 12/26/21 at 0900, Until Discontinu ed, Routine docusate 2021-03 Yes 100mg 100 mg, Unive rs (COLACE) 0-19 Oral, BID, ity o f capsule 100 01:00: First dose [place] mg 00 on [facility] 12/25/21 Branch at 2000, Until [...] First dose Medical (HumaLOG) + on Fri [place] [facility] 12/25/21 Testing at 1700, Until Discontinu [...] KIT) 19 Starting Medical injection 1 on [facility] 12/25/21 at 1633, Until Discontinu ed, NAYAN, Blood Glucose < or = 70 mg/dL and patient is unable to swallow or has mental changes. dextrose 50 2021-03 Yes 25mL 25 mL, Univ ers % in water 0-18 Slow IV ity of (D50W) 21:33: Push, PRN, [place] injection 19 Starting Medica l 25 mL on Fri [place] 12/25/21 at 1633, Until Discontinu ed, NAYAN, Blood Glucose < or = 70 mg/dL and patient is unable to swallow or has mental status changes. ondansetron 2021-03 Yes 4mg 4 mg, Slow Univers (ZOFRAN 0-18 IV Push, ity of (PF)) 21:33: Q6HPRN, [place] injection 4 11 Starting Medi rosario mg on [facility] Branch 12/25/21 at 1633, Until Discontinu ed, Routine, Nausea and Vomiting (N/V) acetaminoph 2021-03 Yes 650mg 650 mg, Un piedad en 0-18 Oral, ity of (TYLENOL) 21:32: Q6HPRN, [place] tablet 650 53 Starting Medic al mg on [facility] Branch 12/25/21 at 1632, Until Discontinu ed, Routine, Pain (scale 1-3) pantoprazol 2021-03 Yes 40mg Take 40 mg Univers e 40 mg EC 0-02 by mouth ity o f tablet 16:36: in the [place] 06 morning Medical and 40 mg Branch in the evening. furosemide 2021-03 Yes 40mg Take 40 mg U nivers 40 mg 0-02 by mouth ity of tablet 16:36: every [place] [address] morning Medical and Branch evening. pantoprazol 2021-03 Yes 40mg Take 40 mg Univers e 40 mg EC 0-02 by mouth ity o f tablet 16:36: in the [place] [address] morning Medical and 40 mg Branch in the evening. furosemide 2021-03 Yes 40mg Take 40 mg U nivers 40 mg 0-02 by mouth ity of tablet 16:36: every [place] [address] morning Medical and Branch evening. spironolact 2021-03- No 25mg Take 25 mg Univers one 25 mg 0-02 1002 by mouth ity o f tablet 13:32: 00:00 in the [place] 31 :00 morning Medical and 25 mg Branch in the evening. spironolact 2021-03- No [id number] 25mg Take 1 Univers one 25 mg 0-02 11-02 tablet by ity of tablet 00:00: 04:59 mouth in [place] 00 :00 the Medical morning Branch for 30 days. spironolact 2021-03- No [id number] 25mg Take 1 Univers one 25 mg 0-02 11-02 tablet by ity of tablet 00:00: 04:59 mouth in [place] 00 :00 the Medical morning Branch for 30 days. spironolact 2021-03- No [id number] 25mg Take 1 Univers one 25 mg 0-02 11-02 tablet by ity of tablet 00:00: 04:59 mouth in [place] 00 :00 [facility] for 30 days. spironolact 2021-03- No [id number] 25mg Take 1 Univers one 25 mg 001-09 tablet by ity of tablet 00:00: 04:59 mouth in [place] 00 :00 [facility] for 30 days. midodrine 2021-03 Yes 5mg 5 mg, Univers (PROAMATINE 0-01 Oral, TID, it y of ) tablet 5 19:00: First dose [place] mg 00 on [facility] 12/08/21 at Branch 1400, Until Discontinu ed, Routine foLIC acid 2021-03- No 1mg 1 mg, Unive rs (FOLATE) 012-08 Oral, ity of tablet 1 mg 16:15: 17:09 ONCE, 1 [place] 00 :[place] dose, On [facility] 12/08/21 at 1115, Routine thiamine 2021-03 Yes 100mg 100 mg, Unive rs (VITAMIN 0-01 Oral, ity of B1) tablet 15:30: DAILY, [place] 100 mg 00 First dose Medical on [facility] 12/08/21 at 1030, Until Discontinu ed, Routine furosemide 2021-03 Yes 40mg 40 mg, Unive rs (LASIX) 0- Oral, ity of tablet 40 14:00: DAILY, [place] mg 00 First dose Medical on [facility] 12/08/21 at 0900, Until Discontinu ed, Routine spironolact 2021-03- No 100mg 100 mg, U nivers one 012-08 Oral, ity of (ALDACTONE) 14:00: 15:45 DAILY, [place] tablet 100 00 :15 First dose Med ical mg on [facility] 12/08/21 at 0900, Until Discontinu ed, Routine traMADoL 2021-03 Yes 50mg 50 mg, Univers (ULTRAM) 0-01 Oral, ity of tablet 50 10:49: Q6HPRN, [place] mg 22 Starting Medical on [facility] 12/08/21 at 0549, Until Discontinu ed, [...] Until Discontinu ed, Routine albumin 2021- No [id number] 25g 25 g, IV Univers (ALBUMINAR 12-07 Infusion, ity of 25%) 25 % 20:15: 02:01 ONCE, 1 [place] injection 00 :00 dose, On Medica l 25 g Fri Branch 12/07/21 at 1515, 100 mL
Marge cation: HEPATORENA L SYNDROME (DIAGNOSIS )
Comme nts: Dosin-8 g/L of ascitic fluid removed furosemide 2021- No [id number] 40mg 40 mg, Univers (LASIX) 12-07 Slow [...] 9-16 medication it y of 13:38: s [address] No known No No known Unive rs medications 8-11 medication it y of 11:47: s [address] No known No No known Unive rs medications 8-11 medication it y of 11:47: [address] No known No No known Unive rs medications 8-11 medication it y of 11:47: [address] Vital Signs Vital Name Observation Time Observation Value Comments Source Systolic blood 2022-08-12 16:30:00 124 mm[Hg] Univer sity of pressure [place] [facility] Diastolic blood 2022-08-12 16:30:00 67 mm[Hg] Unive rsity of pressure [place] [facility] Heart rate 2022-08-12 16:30:00 66 /min Universi ty of [place] [facility] Respiratory rate 2022-08-12 16:30:00 17 /min Univ ersity of [place] [facility] Oxygen saturation in 2022-08-12 16:30:00 99 /min University of Arterial blood by [place] [facility] rosario Pulse oximetry Branch Body temperature 2022-08-12 15:05:00 37 Sh[place]nam Univ ersity of [place] [facility] Body weight 2022-08-12 15:05:00 80.287 kg Universi ty of [place] [facility] BMI 2022-08-12 15:05:00 26.91 kg/m2 Universi ty of [place] [facility] Systolic blood 2022-06-06 19:06:00 120 mm[Hg] Univer sity of pressure [place] [facility] Diastolic blood 2022-06-06 19:06:00 79 mm[Hg] Unive rsity of pressure [place] [facility] Heart rate 2022-06-06 19:06:00 78 /min Universi ty of [place] [facility] Body temperature 2022-06-06 19:06:00 36.17 Sh[place]nam Univ ersity of [place] [facility] Body height 2022-06-06 19:06:00 172.7 cm Universi ty of [place] [facility] Body weight 2022-06-06 19:06:00 80.513 kg Universi ty of [place] [facility] BMI 2022-06-06 19:06:00 26.99 kg/m2 Universi ty of [place] [facility] Oxygen saturation in 2022-06-06 19:06:00 99 /min University of Arterial blood by [place] Sisteer rosario Pulse oximetry Branch Systolic blood 2022-06-05 14:00:00 125 mm[Hg] Univer sity of pressure [place] [facility] Diastolic blood 2022-06-05 14:00:00 74 mm[Hg] Unive rsity of pressure [place] [facility] Heart rate 2022-06-05 14:00:00 80 /min Universi ty of [place] [facility] Respiratory rate 2022-06-05 14:00:00 18 /min Univ ersity of [place] [facility] Oxygen saturation in 2022-06-05 14:00:00 99 /min University of Arterial blood by [facility] Pulse oximetry Branch Body temperature 2022-06-05 11:46:00 35.72 Sh[place]nam Univ ersity of [place] [facility] Body weight 2022-06-05 11:46:00 85.276 kg Universi ty of [place] [facility] BMI 2022-06-05 11:46:00 28.59 kg/m2 Universi ty of [place] [facility] Systolic blood 2022-06-01 00:00:00 140 mm[Hg] Univer sity of pressure [place] [facility] Diastolic blood 2022-06-01 00:00:00 99 mm[Hg] Unive rsity of pressure [place] [facility] Heart rate 2022-06-01 00:00:00 74 /min Universi ty of [place] [facility] Respiratory rate 2022-06-01 00:00:00 18 /min Univ ersity of [place] [facility] Oxygen saturation in 2022-06-01 00:00:00 100 /min University of Arterial blood by [facility] Pulse oximetry Branch Body temperature 2022-05-31 18:57:45 36.33 Sh[place]nam Univ ersity of [place] [facility] Body weight 2022-05-31 18:43:00 85.276 kg Universi ty of [place] [facility] BMI 2022-05-31 18:43:00 28.59 kg/m2 Universi ty of [place] [facility] Systolic blood 2022-04-11 22:07:00 156 mm[Hg] Univer sity of pressure [place] [facility] Diastolic blood 2022-04-11 22:07:00 94 mm[Hg] Unive rsity of pressure [place] [facility] Heart rate 2022-04-11 22:07:00 78 /min Universi ty of [place] [facility] Body temperature 2022-04-11 22:07:00 36.39 Shabnam Univ ersity of [place] [facility] Respiratory rate 2022-04-11 22:07:00 19 /min Univ ersity of [place] [facility] Oxygen saturation in 2022-04-11 22:07:00 100 /min University of Arterial blood by [facility] Pulse oximetry Branch Body height 2022-04-11 02:52:00 172.7 cm Universi ty of [place] [facility] Body weight 2022-04-11 02:52:00 88.451 kg Universi ty of [place] [facility] BMI 2022-04-11 02:52:00 29.65 kg/m2 Universi ty of [place] [facility] Systolic blood 2022-03-27 21:30:00 140 mm[Hg] Univer sity of pressure [place] [facility] Diastolic blood 2022-03-27 21:30:00 83 mm[Hg] Unive rsity of pressure [place] [facility] Heart rate 2022-03-27 21:30:00 68 /min Universi ty of [facility] Respiratory rate 2022-03-27 21:30:00 13 /min [facility] [place] [facility] Oxygen saturation in 2022-03-27 21:30:00 100 /min [facility] [place] [facility] P[facility]xim[facility] Body temperature 2022-03-27 18:33:00 36.89 Shabnam [facility] [place] [facility] Body height 2022-03-27 18:33:00 172.7 cm [facility] [place] [facility] Body weight 2022-03-27 18:33:00 88.451 kg [facility] [place] [facility] BMI 2022-03-27 18:33:00 29.65 kg/m2 [facility] Body weight 2022-03-12 17:50:00 87.544 kg [facility] BMI 2022-03-12 17:50:00 29.35 kg/m2 [facility] Systolic blood 2022-03-12 17:39:00 130 mm[Hg] Univer [facility]ity [facility] pressure [facility] Diastolic blood 2022-03-12 17:39:00 83 mm[Hg] Unive rsity [facility] Heart rate 2022-03-12 17:39:00 71 /min [facility] Body temperature 2022-03-12 17:39:00 36.61 Shabnam [facility] [place] [facility] Respiratory rate 2022-03-12 17:39:00 22 /min [facility] [place] [facility] Body height 2022-03-12 17:39:00 172.7 cm [facility] [place] [facility] Oxygen saturation in 2022-03-12 17:39:00 100 /min [facility] [place] [facility] Systolic blood 2022-02-27 22:01:00 153 mm[Hg] [facility] Diastolic blood 2022-02-27 22:01:00 85 mm[Hg] [facility] Heart rate 2022-02-27 22:01:00 81 /min [facility] Respiratory rate 2022-02-27 22:01:00 16 /min [facility] Oxygen saturation in 2022-02-27 21:26:00 95 /min [facility] [place] [facility] Body temperature 2022-02-27 [...] 99 /min [facility] Arter[facility] blood by [facility] Pulse oximetry Branch Body temperature 2022-02-13 [...] 100 /min [facility] blood by [place] [facility] Body temperature 2022-01-30 16:57:00 36.61 Shabnam [facility] [place] [facility] Body height 2022-01-30 16:57:00 170.2 cm [facility] [place] [facility] Body weight 2022-01-30 16:57:00 86.183 kg [facility] [place] [facility] BMI 2022-01-30 16:57:00 29.76 kg/m2 [facility] [place] [facility] Systolic blood 2022-01-16 19:31:00 140 mm[Hg] [facility] Diastolic blood 2022-01-16 19:31:00 82 mm[Hg] [facility] Heart rate 2022-01-16 19:31:00 79 /min [facility] [place] [facility] Respiratory rate 2022-01-16 19:31:00 18 /min [facility] [place] [facility] Oxygen saturation in 2022-01-16 19:31:00 99 /min [facility]ial blood by [facility] Pulse oximetry Branch Body weight 2022-01-16 17:42:00 85.276 kg [facility] [place] [facility] BMI 2022-01-16 17:42:00 29.44 kg/m2 [facility] [place] [facility] Body temperature 2022-01-16 17:41:00 36.83 Shabnam [facility] [place] [facility] Systolic blood 2022 02:00:00 148 mm[Hg] [facility] [place] [facility] Diastolic blood 2022 02:00:00 83 mm[Hg] [facility] Heart rate 2022 02:00:00 79 /min [facility] [place] [facility] Respiratory rate 2022 02:00:00 20 /min [facility] [place] [facility] Oxygen saturation in 2022 02:00:00 98 /min [facility] [place] [facility] Body weight 2022-01-12 23:58:00 72.576 kg [facility] [place] [facility] BMI 2022-01-12 23:58:00 25.06 kg/m2 [facility] [place] [facility] Systolic blood 2022-01-12 20:14:00 139 mm[Hg] [facility] [place] [facility] Diastolic blood 2022-01-12 20:14:00 93 mm[Hg] [facility] Heart rate 2022-01-12 20:14:00 91 /min [facility] [place] [facility] Respiratory rate 2022-01-12 20:14:00 18 /min [facility] [place] [facility] Body height 2022-01-12 20:14:00 170.2 cm [facility] [place] [facility] Body weight 2022-01-12 20:14:00 72.576 kg [facility] [place] [facility] BMI 2022-01-12 20:14:00 25.06 kg/m2 [facility] [place] [facility] Oxygen saturation in 2022-01-12 20:14:00 99 /min [facility] [place] [facility] Systolic blood 2021-12-28 16:22:00 116 mm[Hg] [facility] [place] [facility] Diastolic blood 2021-12-28 16:22:00 76 mm[Hg] [facility] Heart rate 2021-12-28 16:22:00 78 /min [facility] [place] [facility] Body temperature 2021-12-28 16:22:00 35.78 Shabnam [facility] [place] [facility] Oxygen saturation in 2021-12-28 16:22:00 100 /min [facility] [place] [facility] Respiratory rate 2021-12-28 12:52:00 18 /min [facility] [place] [facility] Body weight 2021-12-28 08:15:00 75.978 kg [facility] [place] [facility] BMI 2021-12-28 08:15:00 25.47 kg/m2 [facility] [place] [facility] Body height 2021-12-25 22:02:00 172.7 cm [facility] [place] [facility] Systolic blood 2021-12-14 19:55:00 120 mm[Hg] [facility] [place] [facility] Diastolic blood 2021-12-14 19:55:00 94 mm[Hg] [facility] [place] [facility] Heart rate 2021-12-14 19:55:00 93 /min [facility] [place] [facility] Body temperature 2021-12-14 19:55:00 36.56 Shabnam [facility] [place] [facility] Respiratory rate 2021-12-14 19:55:00 16 /min [facility] [place] [facility] Body height 2021-12-14 19:55:00 172.7 cm [facility] [place] [facility] Body weight 2021-12-14 19:55:00 81.647 kg [facility] [place] [facility] BMI 2021-12-14 19:55:00 27.37 kg/m2 [facility] [place] [facility] Oxygen saturation in 2021-12-14 19:55:00 100 /min [facility] [place] [facility] Systolic blood 2021-12-09 16:13:00 139 mm[Hg] [facility] [place] [facility] Diastolic blood 2021-12-09 16:13:00 88 mm[Hg] [facility] [place] [facility] Heart rate 2021-12-09 16:13:00 77 /min [facility] [place] [facility] Body temperature 2021-12-09 16:13:00 36.06 Shabnam [facility] [place] [facility] Respiratory rate 2021-12-09 16:13:00 18 /min [facility] [place] [facility] Oxygen saturation in 2021-12-09 16:13:00 95 /min [facility] [place] [facility] Body weight 2021-12-09 08:54:00 78.971 kg [facility] [place] [facility] BMI 2021-12-09 08:54:00 26.47 kg/m2 [facility] Systolic blood 2021-11-23 19:30:00 140 mm[Hg] [facility] [place] [facility] Diastolic blood 2021-11-23 19:30:00 83 mm[Hg] [facility]ive rsity [facility] pressure [place] [facility] Heart rate 2021-11-23 19:30:00 79 /min [facility] Oxygen saturation in 2021-11-23 19:30:00 100 /min [facility] [place] [facility] Body temperature 2021-11-23 18:42:00 36.44 Shabnam [facility] [place] [facility] Respiratory rate 2021-11-23 18:39:00 20 /min [facility] [place] [facility] Body height 2021-11-23 18:39:00 172.7 cm [facility] [place] [facility] Body weight 2021-11-23 18:39:00 83.598 kg [facility] [place] [facility] BMI 2021-11-23 18:39:00 28.02 kg/m2 [facility] [place] [facility] Systolic blood 2021-11-09 21:10:00 169 mm[Hg] [facility] [place] [facility] Diastolic blood 2021-11-09 21:10:00 80 mm[Hg] [facility] [place] [facility] Heart rate 2021-11-09 21:10:00 85 /min [facility] [place] [facility] Respiratory rate 2021-11-09 21:10:00 16 /min [facility] [place] [facility] Oxygen saturation in 2021-11-09 21:10:00 94 /min [facility] Arterial blood by [facility] Pulse oximetry Branch Body temperature 2021-11-09 19:49:00 36.83 Shabnam [facility] [place] [facility] Body height 2021-11-09 19:49:00 172.7 cm [facility] [place] [facility] Body weight 2021-11-09 19:49:00 90.719 kg [facility] [place] [facility] BMI 2021-11-09 19:49:00 30.41 kg/m2 [facility] [place] [facility] Systolic blood 2021-10-18 15:17:00 149 mm[Hg] [facility] Diastolic blood 2021-10-18 15:17:00 79 mm[Hg] [facility] Heart rate 2021-10-18 15:17:00 77 /min [facility] [place] [facility] Body temperature 2021-10-18 15:17:00 36.61 Shabnam [facility] [place] [facility] Respiratory rate 2021-10-18 15:17:00 16 /min [facility] [place] [facility] Body weight 2021-10-18 15:17:00 90.719 kg [facility] [place] [facility] Oxygen saturation in 2021-10-18 15:17:00 98 /min [facility] Arterial blood by [facility] Pulse oximetry Branch Procedures Procedure Date / Time Performing Clinician Source Performed IN ABDOM PARACENTESIS 2022-08-12 16:58:16 Kev Nguyen [facility] DX/THER W/IMAGING [facility] GUIDANCE XR CHEST 1 VW 2022-08-12 15:57:01 Libertad [facility] LIPASE 2022-08-12 15:28:00 Libertad [facility] COMP. METABOLIC PANEL 2022-08-12 15:28:00 Libertad [facility] ([id number]) [facility] CBC WITH DIFF 2022-08-12 15:28:00 Libertad [facility] PROTHROMBIN TIME / INR 2022-08-12 15:28:00 Libertad [facility] CONSENT/REFUSAL FOR 2022-08-12 15:02:09 Doctor Unassigned, No [facility] DIAGNOSIS AND TREATMENT Name [facility] ASSIGNMENT OF BENEFITS 2022-06-06 18:38:18 Doctor Unassigned, No [facility] LIPASE 2022-06-05 13:17:00 Kristel [facility] HEPATIC FUNCTION PANEL 2022-06-05 13:17:00 Kristel [facility] ([id number]) (ALB,T.PRO,BILI [facility] T,BU/BC,ALT,AST,ALK PHOS) BASIC METABOLIC PANEL 2022-06-05 13:17:00 Kristel [facility] (NA, K, CL, CO2, Medical Branch GLUCOSE, BUN, CREATININE, CA) CBC WITH DIFF 2022-06-05 13:17:00 Kristel [facility] PROTHROMBIN TIME / INR 2022-06-05 13:17:[address] [facility] ACTIVATED PARTIAL 2022-06-05 13:17:00 [facility] THRMPLAS [facility] CONSENT/REFUSAL FOR 2022-06-05 11:43:52 Doctor Unassigned, No [facility] DIAGNOSIS AND TREATMENT [facility] BODY FLUID DIRECT COUNT 2022-05-31 23:03:00 Jeremias Mohr [facility] HEPATIC FUNCTION PANEL 2022-05-31 21:22:00 Jeremias Mohr [facility] ([id number]) (ALB,T.PRO,BILI [facility] T,BU/BC,ALT,AST,ALK PHOS) CBC WITH DIFF 2022-05-31 19:08:00 Onur [facility] BASIC METABOLIC PANEL 2022-05-31 19:00:00 Onur [facility] (NA, K, CL, CO2, [facility] GLUCOSE, BUN, CREATININE, CA) PROTHROMBIN TIME / INR 2022-05-31 19:00:00 Onur Jeremias [facility] CONSENT/REFUSAL FOR 2022-05-31 18:40:37 Doctor Unassigned, No Un [facility] DIAGNOSIS AND TREATMENT Name [facility] BASIC METABOLIC PANEL 2022-04-11 22:15:00 Rivera Stinson [facility] (NA, K, CL, CO2, [facility] GLUCOSE, BUN, CREATININE, CA) BLOOD CULTURE SCREEN 2022-04-11 16:47:00 Rivera Stinson [facility] MAGNESIUM 2022-04-11 09:39:00 [facility]OLIC [facility]EL 2022-04-11 09:39:00 Eddie Doyle [facility] ([id number]) [facility] CBC WITH DIFF 2022-04-11 09:39[facility]00 [facility] 2022-04-11 09:39[facility]00 [facility]HCV[facility] 2022-04-11 09:39[facility]00 [facility] NAAT Medical [facility] T.PROTEIN BODY FLUID 2022-04-11 06:15:00 Eddie Doyle [facility] BODY FLUID DIRECT COUNT 2022-04-11 06:15:00 Eddie Doyle [facility] BODY FLUID (BACTEC 2022-04-11 06:15:00 Sweet, [facility] BOTTLE) Medical Branch COMP. METABOLIC PANEL 2022-04-10 21:26:00 Bucky Gloria [facility] ([id number]) Medical Branch CBC WITH DIFF 2022-04-10 21:26:00 Bucky Gloria [place] [facility] GLYCOSYLATED HEMOGLOBIN 2022-04-10 21:26:00 Jessica Leon [facility] (A1C) Medical Branch PROTHROMBIN TIME / INR 2022-04-10 21:26:00 Bucky Gloria [facility] ACTIVATED PARTIAL 2022-04-10 21:26:00 Bucky Gloria [facility] THRMPLAS SADE [facility] CONSENT/REFUSAL FOR 2022-04-10 19:58:33 Doctor Unassigned, No [facility] [place] [facility]RE[facility] Name [facility] [place] [facility] AD[facility]ION 2022-04-10 06:01:00 Doctor Unassigned, No [facility] IN ABDOM PARACENTESIS 2022-03-27 20:57:39 Gini East [facility] DX/THER W/IMAGING Medical Branch GUIDANCE COMP. METABOLIC PANEL 2022-03-27 18:56:00 Gini East [facility] ([id number]) [facility] CBC WITH DIFF 2022-03-27 18:56:00 Gini East [facility] PROTHROMBIN TIME / INR 2022-03-27 18:56:00 Gini East [facility] IN ABDOM PARACENTESIS 2022-03-12 18:32:33 [facility] DX/THER W IMAGING [facility] GUIDANCE CONSENT/REFUSAL FOR 2022-03-12 17:29:10 Doctor Unassigned, No [facility] [place] DIAGNOSIS AND TREATMENT [facility] Medical Branch IN ABDOM PARACENTESIS 2022-02-27 21:29:57 [facility] DX/THER W IMAGING [facility] GUIDANCE CONSENT/REFUSAL FOR 2022-02-27 21:02:37 Doctor Unassigned, No [facility] [place] DIAGNOSIS AND TREATMENT [facility] Medical Branch IN ABDOM PARACENTESIS 2022-02-13 21:42:20 Kev Nguyen [facility] DX/THER W IMAGING Medical Branch GUIDANCE CONSENT/REFUSAL FOR 2022-02-13 21:08:22 Doctor Unassigned, No [facility] [place] DIAGNOSIS AND TREATMENT Name Medical [facility] IN ABDOM PARACENTESIS 2022-01-30 19:16:37 Kev Nguyen [facility] DX/THER W IMAGING [facility] GUIDANCE CONSENT/REFUSAL FOR 2022-01-30 16:51:04 Doctor Unassigned, No [facility] [place] DIAGNOSIS AND TREATMENT Name Medical Branch IN ABDOM PARACENTESIS 2022-01-16 19:17:58 Kev Nguyen [facility] DX/THER W IMAGING [facility] GUIDANCE CONSENT/REFUSAL FOR 2022-01-16 17:29:44 Doctor Unassigned, No [facility] [place] DIAGNOSIS AND TREATMENT Name [facility] XR CHEST 1 VW 2022 01:47:22 Jaqui Romano [facility] COMP. METABOLIC PANEL 2022 01:19:00 Jaqui Romano [facility] ([id number]) [facility] CBC WITH DIFF 2022 01:19:00 Jaqui Romano [facility] PROTHROMBIN TIME / INR 2022 01:19:00 Jaqui Romano [facility] ACTIVATED PARTIAL 2022 01:19:00 Jaqui Romano [facility] CONSENT/REFUSAL FOR 2022-01-12 22:44:32 Doctor Unassigned, No [facility] [place] DIAGNOSIS AND TREATMENT Name [facility] CONSENT/REFUSAL FOR 2022-01-12 20:00:19 Doctor Unassigned, No [facility] [place] DIAGNOSIS AND TREATMENT Name [facility] POCT GLUCOSE (AUTOMATED) 2021-12-28 12:54:00 Augustin Jean [facility] BASIC METABOLIC PANEL 2021-12-28 08:19:00 Danielle Rothman [facility] [place] (NA, K, CL, CO2, [facility] GLUCOSE, BUN, CREATININE, CA) CBC WITH DIFF 2021-12-28 08:19:00 Danielle Rothman [facility] BODY FLUID DIRECT COUNT 2021-12-28 01:21:00 Kimmie Flynn [facility] BODY FLUID 2021-12-28 01:21:00 [facility] [place] [facility] [place] CULTURE(AEROBIC/ANAEROBI [facility] [place] C) POCT GLUCOSE (AUTOMATED) 2021-12-28 00:42:00 Augustin Jean [facility] POCT GLUCOSE (AUTOMATED) 2021-12-27 21:53:00 Augustin Jean [facility] POCT GLUCOSE (AUTOMATED) 2021-12-27 16:33:00 Augustin Jean [facility] POCT GLUCOSE (AUTOMATED) 2021-12-27 12:29:00 Augustin Jean [facility] BASIC METABOLIC PANEL 2021-12-27 09:27:00 Danielle Rothman [facility] (NA, K, CL, CO2, [facility] GLUCOSE, BUN, CREATININE, CA) CBC WITH DIFF 2021-12-27 09:27:00 Danielle Rothman [facility] POCT GLUCOSE (AUTOMATED) 2021-12-27 01:11:00 Augustin Jean [facility] POCT GLUCOSE (AUTOMATED) 2021-12-26 21:17:00 [facility] ([facility]OMATED) 2021-12-26 16:48:00 Augustin Jean [facility] POCT GLUCOSE (AUTOMATED) 2021-12-26 12:47:00 Augustin Jean [facility] LACTATE DEHYDROGENASE 2021-12-26 09:26:00 Ted [facility] MAGNESIUM 2021-12-26 09:26:00 Ted [facility] HEPATIC FUNCTION PANEL 2021-12-26 09:26:00 Ted [facility] ([id number]) (ALB,T.PRO,BILI Medical Branch T,BU/BC,ALT,AST,ALK PHOS) BASIC METABOLIC PANEL 2021-12-26 09:26:00 Ted Guthrie [facility] (NA, K, CL, CO2, Medical Branch GLUCOSE, BUN, CREATININE, CA) CBC WITH DIFF 2021-12-26 09:26:00 [place], [facility] o [facility] POCT GLUCOSE (AUTOMATED) 2021-12-26 00:44:00 Ted Augustin [facility] POCT GLUCOSE (AUTOMATED) 2021-12-25 23:16:00 Augustin Jean [facility] URINALYSIS 2021-12-25 15:12:00 Chilo Oliva [facility] XR CHEST 2 VW 2021-12-25 14:56:42 Chilo Oliva [facility] COMP. METABOLIC PANEL 2021-12-25 14:31:00 Chilo Oliva [facility] ([id number]) [facility] CBC WITH DIFF 2021-12-25 14:31:00 Chilo Oliva [facility] PROTHROMBIN TIME / INR 2021-12-25 14:31:00 Chilo Oliva [facility] ACTIVATED PARTIAL 2021-12-25 14:31:00 Chilo Oliva [facility] CONSENT/REFUSAL FOR 2021-12-25 13:31:05 Doctor Unassigned, No [facility] [place] DI[facility] AND TREATMENT Name [facility] BASIC METABOLIC PANEL 2021-12-14 22:07:00 Mike Hoffman [facility] (NA, K, CL, CO2, Medical Branch GLUCOSE, BUN, CREATININE, CA) CBC WITH DIFF 2021-12-14 22:07:00 Mike Hoffman [facility] CONSENT/REFUSAL FOR 2021-12-14 19:51:33 Doctor [facility]igned, No [facility] Name [facility] POCT GLUCOSE (AUTOMATED) 2021-12-09 16:37:00 Alisha Cha [facility] POCT GLUCOSE (AUTOMATED) 2021-12-09 12:50:00 Alisha Cha [facility] BASIC METABOLIC PANEL 2021-12-09 08:57:00 [facility] (NA, K, CL, CO2, [facility] GLUCOSE, BUN, CREATININE, CA) POCT GLUCOSE (AUTOMATED) 2021-12-09 01:54:[address] [facility] POCT GLUCOSE (AUTOMATED) 2021-12-08 21:56:00 Alisha Cha [facility] POCT GLUCOSE (AUTOMATED) 2021-12-08 16:49:[address] [facility] POCT GLUCOSE (AUTOMATED) 2021-12-08 14:07:[address] [facility] PHOSPHORUS 2021-12-08 08:58:00 Dusty Josue [facility] URIC ACID 2021-12-08 08:58:00 Dusty Josue [facility] MAGNESIUM 2021-12-08 08:58:00 Dusty Josue [facility] AMMONIA, PLASMA 2021-12-08 08:58:00 Dusty Josue [facility] BASIC METABOLIC PANEL 2021-12-08 08:58:00 Danielle Rothman [facility] (NA, K, CL, CO2, [facility] [place] GLUCOSE, BUN, CREATININE, CA) IRON PANEL 2021-12-08 08:58:00 Dusty Josue [facility] CBC WITH DIFF 2021-12-08 08:58:00 Danielle Rothman [facility] URINALYSIS 2021-12-08 02:26:00 Willy [facility] POTASSIUM, URINE RANDOM 2021-12-08 02:25:00 Willy [facility] SODIUM, URINE RANDOM 2021-12-08 02:25:00 Willy [facility] PROTEIN CREAT RATIO 2021-12-08 02:25:00 Willy [facility] URINE RANDOM [facility] OSMOLALITY URINE 2021-12-08 02:23:00 Willy [facility] POCT GLUCOSE (AUTOMATED) 2021-12-08 02:08:[address] [facility] IN ABDOM PARACENTESIS 2021-12-07 22:45:00 Bucky Gloria [facility] DX/THER W IMAGING [facility] GUIDANCE PHOSPHORUS 2021-12-07 19:33:00 Stephan, [facility] CREATINE KINASE 2021-12-07 19:33:00 [facility] 2021-12-07 19:33:00 Stephan [facility] LIPID PANEL 2021-12-07 19:33:00 [facility] ([id number])(TOTAL Medical Branch CHOLESTEROL, TRIGLYCERIDES, HDL) N-TERMINAL PRO-BNP 2021-12-07 19:33[facility]IC [facility] 2021-12-07 16:02:00 Bucky Gloria [facility] ([id number]) [facility] CBC WITH DIFF 2021-12-07 16:02:00 Faizan [facility] GLYCOSYLATED HEMOGLOBIN 2021-12-07 16:02:00 [facility] PROTHROMBIN TIME / INR 2021-12-07 16:02:00 Bucky Gloria [facility] ACTIVATED PARTIAL 2021-12-07 16:02:00 Faizan [facility] THRMPLAS SADE [facility] CONSENT/REFUSAL FOR 2021-12-07 15:35:39 Doctor Unassigned, No [facility] [place] DIAGNOSIS AND TREATMENT [facility] IN ABDOM PARACENTESIS 2021-11-23 19:39:58 Jonna Lance [facility] DX/THER W IMAGING [facility] GUIDANCE CONSENT/REFUSAL FOR 2021-11-23 18:36:31 Doctor Unassigned, No [facility] [place] DIAGNOSIS AND TREATMENT [facility] IN ABDOM PARACENTESIS 2021-11-09 20:59:55 Kev Nguyen [facility] DX/THER W IMAGING [facility] GUIDANCE CONSENT/REFUSAL FOR 2021-11-09 19:35:17 Doctor Unassigned, No Un iversity [facility] DIAGNOSIS AND TREATMENT [facility] NOTICE OF PRIVACY 2021-11-09 19:32:40 [facility]igned, No [facility] LIPASE 2021-10-18 15:50:00 Annabelle Ramirez [facility] COMP. METABOLIC PANEL 2021-10-18 15:50:00 Annabelle Ramirez [facility] [place] ([id number]) [facility] CBC WITH DIFF 2021-10-18 15:50:00 Annabelle Ramirez [facility] ty [facility] CONSENT/REFUSAL FOR 2021-10-18 15:18:16 Doctor Unassigned, No [facility] Name [facility] Branch Encounters Start End Encounter Admission Attending Care Care Encounter Source Date/Time Date/Time Type Type Clinicians Facility Department ID 2022-09-17 2022-09-17 Outpatient [facility] [place] 11:30:32 11:30:32 [id number] [place] 2022-08-13 2022-08-13 Outpatient [facility] [place] 08:09:25 08:09:25 [id number] [address] [place] 2022-08-12 2022-08-[address] [facility] ERT [id number] Univers 10:04:00 12:47:00 MIKE reynoso [facility] 2022-08-12 2022-08-[address] [facility] 1.2.165.168 [id number] Univers 10:04:00 12:47:00 Mike SOSA 350.1.13.10 i ty [facility] 4.2.7.2.686 [facility] [id number] [facility] [address] [place] 2022-06-13 2022-06-13 Outpatient [facility] [id number] [place] 09:35:42 09:35:42 [id number] [facility] 2022-06-06 2022-06-06 Rico Chapman OKEMILIA 1.2.840.114 [id number] Univers 14:30:00 15:00:00 Visit [facility] SPECIALTY 350.1.13.10 ity of [facility] 4.2.7.2.686 [facility] AT [phone] Ma farrah LYONS [address] [place] [address] 2022-06-06 2022-06-06 Outpatient R [facility] [id number] Univers 14:30:00 14:30:00 LEILA reynoso [facility] 2022-06-06 2022-06-06 Orders Doctor ALVARADO 1.2.840.114 [id number] Univers 00:00:00 00:00:00 Only Unassigned, CRAL 350.1.13.10 ity of [place] [facility] 4.2.7.2.686 Henrique as [id number] [facility] [address] [place] 2022-06-05 2022-06-05 Emergency X [facility]É [facility] ERT 1 [id number] Univers 06:51:00 10:20:00 KRISTELJOSÉ MIGUEL Schwarz ity of [facility] 2022-06-05 2022-06-05 Emergency Kristel, TRAUMA 1.2.112.111 [id number] Univers 06:51:00 10:20:00 [facility] 350.1.13.10 [place] [id number] [facility] [address] [place] 2022-05-31 2022-05-31 Emergency X [facility]EM[facility]AS [facility] ERT 1 [id number] Univers 13:40:00 19:16:00 JEREMIAS MOHR ity of [facility] 2022-05-31 2022-05-31 Emergency Mohr, TRAUMA 1.2.423.145 [id number] Univers 13:40:00 19:16:00 Jeremias [place] 350.1.13.10 [place] [id number] [facility] [address] [place] 2022-05-13 2022-05-13 Outpatient [facility] [id number] [place] 08:36:17 08:36:17 72453 F [place] 2022-04-10 2022-04-11 Outpatient U [facility] NICOLE [id number] Univers 14:05:00 17:45:00 GEETA ity of [facility] 2022-04-10 2022-04-11 Emergency Bucky Gloria MOLLY 1.2.840. 114 [id number] Univers 14:05:00 17:45:00 HannahGeeta CARL 350.1.13.10 ity of [facility] 4.2.7.2.686 Henrique as [id number] [place] [id number] [place] 2022-03-27 2022-03-27 Emergency X [facility] ERT [id number] Univers 12:34:00 17:18:00 GINI reynoso [facility] 2022-03-27 2022-03-27 Emergency [place], [facility] 1.2.140.785 [id number] Univers 12:34:00 17:18:00 Gini SOSA 350.1.13.10 ity [facility] 4.2.7.2.686 [facility] [id number] [address] 2022-03-26 2022-03-26 Outpatient [facility] [id number] [place] 10:22:23 10:22:23 [address] [place] 2022-03-25 2022-03-25 Outpatient [facility] D[place]rell 13:11:32 13:11:32 [address] F [place] 2022-03-12 2022-03-12 Emergency X [facility] ERT [id number] Univers 11:38:00 14:36:00 KEV reynoso [facility] 2022-03-12 2022-03-12 Emergency , [facility] 1.2.093.804 [id number] Univers 11:38:00 14:36:00 Kev SOSA 350.1.13.10 i ty of [place] 4.2.7.2.686 [facility] [id number] [address] 2022-02-27 2022-02-27 Emergency X , [facility] ERT [id number] Univers 15:04:00 16:07:00 KEV reynoso [facility] 2022-02-27 2022-02-27 Emergency , [facility] 1.2.700.914 [id number] Univers 15:04:00 16:07:00 Kev SOSA 350.1.13.10 i ty of [place] 4.2.7.2.686 [facility] [id number] [address] 2022-02-13 2022-02-13 Emergency X , [facility] ERT [id number] Univers 15:17:00 16:45:00 KEV reynoso [facility] 2022-02-13 2022-02-13 Emergency Singer [facility] 1.2.296.890 [id number] Univers 15:17:00 16:45:00 Kev SOSA 350.1.13.10 i ty of [place] 4.2.7.2.686 [facility] [id number] [address] 2022-01-30 2022-01-30 Emergency X , [facility] ERT [id number] Univers 10:58:00 13:28:00 KEV reynoso [facility] 2022-01-30 2022-01-30 Emergency Lila Leo [facility] 1.2.840. 114 [id number] Univers 10:58:00 13:28:00 Kev Nguyen 350.1.13.10 ity of [place] 4.2.7.2.686 [facility] [id number] [address] 2022-01-16 2022-01-16 Emergency X [facility] ERT [id number] Univers 11:43:00 14:30:00 KEV reynoso [facility] 2022-01-16 2022-01-16 Emergency [facility] 1.2.425.205 [id number] Univers 11:43:00 14:30:00 Kev SOSA 350.1.13.10 i ty of [place] 4.2.7.2.686 [facility] [id number] [address] 2022-01-16 2022-01-16 Orders Doctor JENNY 1.2.840.114 [id number] Univers 00:00:00 00:00:00 Only Unassigned, CARL 350.1.13.10 ity of [place] [facility] 4.2.7.2.686 Henri[place] [id number] [place] [address] [place] 2022-01-12 2022-01-12 Emergency [facility] [id number] Univers 17:45:00 21:44:00 JAQUI wilianyasmeen [facility] 2022-01-12 2022-01-12 Emergency Samuel Jennings TRAUMA 1.2.840 .114 [id number] Univers 17:45:00 21:44:00 Jaqui Romano [facility] 350.1.13.[address] it[address] [facility] [id number] [facility] [address] 2022-01-12 2022-01-12 Emergency [facility] [id number] Univers 15:17:00 15:27:00 MAGNOLIA ity [facility] 2022-01-12 2022-01-12 Emergency [facility] 1.2.662.642 [id number] Univers 15:17:00 15:27:00 Magnolia SOSA 350.1.13.10 ity of [place] 4.2.7.2.686 [facility] [id number] [facility] [address] 2022-01-01 2022-01-01 Transition WENCESLAO Fragoso 1.2.840.114 [id number] Univers 00:00:00 00:00:00 of Care Analia AVERY 350.1.13.10 ity of [place] 4.2.7.2.686 [facility] [id number] [facility] [address] 2021-12-25 2021-12-28 Inpatient X TED [facility] [id number] Univers 08:38:00 13:08:00 AUGUSTIN ity [facility] 2021-12-25 2021-12-28 [facility] Chilo Oliva [facility] 1.2.840. 114 [id number] Univers 08:38:00 13:08:00 Encounter Constanzaarely Augustinlanette SOSA 350.1.13.10 ity of [place] 4.2.7.2.686 [facility] [id number] [facility] [address] 2021-12-14 2021-12-14 Emergency [facility]RT [id number] Univers 14:56:00 18:52:00 MIKE ityasmeen [facility] 2021-12-14 2021-12-14 Emergency [facility] 1.2.177.306 [id number] Univers 14:56:00 18:52:00 Mike SOSA 350.1.13.10 i ty [facility] 4.2.7.2.686 [facility] [id number] [place] 073654 [place] 2021-12-07 2021-12-09 Inpatient X SEMAJ [facility] NICOLE [id number] Univers 10:44:00 16:35:00 ALISHA reynoso [facility] 2021-12-07 2021-12-09 Hospital Bucky Gloria [facility] 1.2.840.1 14 [id number] Univers 10:44:00 16:35:00 Encounter Alisha Cha 350.1.13.10 ity of [place] 4.2.7.2.686 [facility] [id number] [place] 073651 [place] 2021-11-23 2021-11-23 Emergency X CASI [facility] ERT [id number] Univers 13:42:00 14:58:00 JONNA edgardo [facility] 2021-11-23 2021-11-23 Emergency [facility] 1.2.840.114 [id number] Univers 13:42:00 14:58:00 Jonna SOSA 350.1.13.10 ity [facility] 4.2.7.2.686 [facility] [id number] [facility] [address] [place] 2021-11-09 2021-11-09 Emergency X [facility] ERT [id number] Univers 14:51:00 16:42:00 KEV wilianyasmeen [facility] 2021-11-09 2021-11-09 Emergency [facility] 1.2.408.310 [id number] Univers 14:51:00 16:42:00 Kev SHEILA 350.1.13.10 i ty [facility] 4.2.7.2.686 [facility] [id number] [facility] [address] [place] 2021-11-09 2021-11-09 Orders Doctor JENNY 1.2.840.114 [id number] Univers 00:00:00 00:00:00 Only Unassigned, CARL 350.1.13.10 ity of [place] [facility] 4.2.7.2.686 [facility] [id number] [facility] [address] 2021-10-18 2021-10-18 Emergency X ASHLEY [facility] ERT [id number] Univers 10:21:00 11:56:00 ANNABELLE reynoso [facility] 2021-10-18 2021-10-18 Emergency Ibikunle, TRAUMA 1.2.840.114 [id number] Univers 10:21:00 11:56:00 [facility] 350.1.13.10 ity of 4.2.7.2.686 Radha gardner [id number] [place] [address] [place] Results Test Description Test Time Test Comments Results Result Comments Source BASIC METABOLIC PANEL (NA, K, CL, CO2, GLUCOSE, BUN, 2022-05 13:40:36 CREATININE, CA) Test Item Value Reference Range Interpretation Comme nts NA (test code = 7095620421) 138 mmol/L 135-145 K (test code = 1971638466) 4.8 mmol/L 3.5-5.0 CL (test code = 2175026156) 102 mmol/L 98-108 CO2 TOTAL (test code = 6672970130) 32 mmol/L 23-31 H AGAP (test code = 5955951555) 4 2-16 BUN (test code = 1791038173) 45 mg/dL 7-23 H GLUCOSE (test code = 5055838921) 163 mg/dL 70-110 H CREATININE (test code = 2.52 mg/dL 0.60-1.25 H 1761871438) CALCIUM (test code = 2187843472) 8.1 mg/dL 8.6-10.6 L eGFR (test code = 1745031313) 25.8 mL/min/1.73m2 RODRIGO (test code = RODRIGO) [...] tests). Lab Interpretation (test code = Abnormal 38642-8) [facility]00269[facility] (ALB,T.PRO,BILI T,BU/BC,ALT,AST,ALK PHOS)2022-06-05 13:40:36 Test Item Value Reference Range Interpretation Comments TOTAL BILI (test code = 0958659213) 0.4 mg/dL 0.1-1.1 BILI UNCON (test code = 2785487349) 0.1 mg/dL 0.1-1.1 BILI CONJ (test code = 8001366506) 0.0 mg/dL 0.0-0.3 T PROTEIN (test code = 4472746985) 6.0 g/dL 6.3-8.2 L ALBUMIN (test code = 3704341609) 2.9 g/dL 3.5-5.0 L ALK PHOS (test code = 9576288044) 71 U/L 34-122 ALTv (test code = 1742-6) 15 U/L 5-50 AST(SGOT) (test code = 3614854265) 23 U/L 13-40 Lab Interpretation (test code = Abnormal 99381-7) [facility]2023-03-29 13:40:36 Test Item Value Reference Range Interpretation Comments LIPASE (test code = 0831111330) 125 U/L 0-220 Lab Interpretation (test code = Normal 92717-2) [facility]ACTIV[facility] PARTIAL THRMPLAS [id number] 13:37:54 Test Item Value Reference Range Interpretation Comments APTT Patient (test code 38 See_Comment H [Au tomated message] = 2193-2) The system [employer] generated this result transmitted ref erence range: 26 - 36 Seconds. The reference range was not used to int erpret this result as normal/abnormal . Lab Interpretation (test Abnormal code = 77705-3) [facility]ervillePROTHROMBIN TIME / [id number] 13:37:54 Test Item Value Reference Range Interpretation [...] tions. Lab Interpretation (test Abnormal code = 07882-4) [facility]CBC WITH [id number] 13:31:36 Test Item Value Reference Range Interpretation Comments WBC (test code = 4.39 See_Comment [Automated 6690-2) message] The sy stem which generated this result transmitted reference range : 4.20 - 10.70 10*3/?L. The reference range was not used to interpret this result as normal/abnormal . RBC (test code = 3.48 See_Comment L [Automated 109-8) message] The sy stem which generated this [...] RDW-SD (test code = 45.2 fL 38.5-51.6 48765-3) RDW-CV (test code = 13.9 % 12.1-15.4 788-0) PLT (test code = 123 See_Comment L [Automated 777-3) message] The sy stem which generated this result transmitted reference range : 150 - 328 10*3/ ?L. The reference r kelin was not used to interpret this result as normal/abnormal . MPV (test code = 9.7 fL 9.8-13.0 L 20913-3) NRBC/100 WBC (test 0.0 See_Comment [Automat ed code = 5493470329) message] The system which generated this result transmitted reference range : 0.0 - 10.0 /100 WBCs. The refer ence range was not u sed to interpret th is result as normal/abnormal . NRBC x10^3 (test code See_Comment [Auto mated = 9096842521) message] The s ystem which generated this result transmitted reference range : 10*3/?L. The reference range was not used to interpret this result as normal/abnormal . GRAN MAT (NEUT) % 74.0 % (test code = 770-8) IMM GRAN % (test code 0.70 % = 3578467089) LYMPH % (test code = 10.9 % 736-9) MONO % (test code = 11.2 % 5905-5) EOS % (test code = 2.7 % 713-8) BASO % (test code = 0.5 % 706-2) GRAN MAT x10^3(ANC) 3.25 10*3/uL 1.99-6.95 (test code = 7196517542) IMM GRAN x10^3 (test 0.03 10*3/uL 0.00-0.06 code = 4345026360) LYMPH x10^3 (test code 0.48 10*3/uL 1.09-3.23 L = 731-0) MONO x10^3 (test code 0.49 10*3/uL 0.36-1.02 = 742-7) EOS x10^3 (test code = 0.12 10*3/uL 0.06-0.53 711-2) BASO x10^3 (test code 0.01-0.09 = 704-7) Lab Interpretation Abnormal (test code = 80834-4) [facility] METABOLIC PANEL (NA, K, CL, CO2, GLUCOSE, BUN, CREATININE, CA)2022-05-31 19:22:56 Test Item Value Reference Range Interpretation Comments NA (test code = 136 mmol/L 135-145 1027227495) K (test code = 5.2 mmol/L 3.5-5.0 H 3814117460) CL (test code = 100 mmol/L 98-108 0807577075) CO2 TOTAL (test code = 29 mmol/L 23-31 3334257852) AGAP (test code = 7 2-16 8789873821) BUN (test code = 49 mg/dL 7-23 H 1907124158) GLUCOSE (test code = 115 mg/dL 70-110 H 4330776623) CREATININE (test code = 2.47 mg/dL 0.60-1.25 H 5391444051) CALCIUM (test code = 8.3 mg/dL 8.6-10.6 L 1357485274) eGFR (test code = 26.4 mL/min/1.73m2 5571825141) RODRIGO (test code = RODRIGO) Association of [...] tests). Lab Interpretation Abnormal (test code = 30005-8) [facility] WITH [id number] 19:14:12 Test Item Value Reference Range Interpretation [...] RDW-SD (test code = 46.5 fL 38.5-51.6 15215-9) RDW-CV (test code = 14.3 % 12.1-15.4 788-0) PLT (test code = 163 See_Comment [Automated 777-3) message] The sy stem which generated this result transmitted reference range : 150 - 328 10*3/ ?L. The reference r kelin was not used to interpret this result as normal/abnormal . MPV (test code = 9.2 fL 9.8-13.0 L 25477-4) NRBC/100 WBC (test 0.0 See_Comment [Automat ed code = 5363988532) message] The system which generated this result transmitted reference range : 0.0 - 10.0 /100 WBCs. The refer ence range was not u sed to interpret th is result as normal/abnormal . NRBC x10^3 (test code See_Comment [Auto mated = 1960163484) message] The s ystem which generated this result transmitted reference range : 10*3/?L. The reference range was not used to interpret this result as normal/abnormal . GRAN MAT (NEUT) % 73.9 % (test code = 770-8) IMM GRAN % (test code 0.40 % = 5167518040) LYMPH % (test code = 13.1 % 736-9) MONO % (test code = 9.1 % 5905-5) EOS % (test code = 2.9 % 713-8) BASO % (test code = 0.6 % 706-2) GRAN MAT x10^3(ANC) 3.51 10*3/uL 1.99-6.95 (test code = 9416181557) IMM GRAN x10^3 (test 0.00-0.06 code = 2164269921) LYMPH x10^3 (test code 0.62 10*3/uL 1.09-3.23 L = 731-0) MONO x10^3 (test code 0.43 10*3/uL 0.36-1.02 = 742-7) EOS x10^3 (test code = 0.14 10*3/uL 0.06-0.53 711-2) BASO x10^3 (test code 0.03 10*3/uL 0.01-0.09 = 704-7) Lab Interpretation Abnormal (test code = 18175-8) [facility]ervillePROTHROMBIN TIME / [id number] 19:12:09 Test Item Value Reference Range Interpretation [...] tions. Lab Interpretation (test Abnormal code = 64042-7) [facility] PflugervilleBODY FLUID MANUAL [id number] 22:52:46 Test Item Value Reference Range Interpretation Comments BF SEGS% (test 16 % code = 44531-6) BF LYMPHS% (test 50 % code = 70956-3) BF MACROPHAGE% 30 % (test code = 20300-1) BF MESOS% (test 4 % code = 03340-8) BF #CELLS CNTD 100 cells/uL (test code = 6202487376) RODRIGO (test code = Reviewed by HANG HERNANDES MD, Director of HEMATOPATHOLOGY [facility] PflugervilleTotal Protein Body [id number] 08:10:53 Test Item Value Reference Range Interpretation Comments T.PROT BF (test 3000.0 mg/dL code = 4355616646) UNSPUN BODY FLUID Light Yellow COLOR (test code = 5588723170) UNSPUN BODY FLUID Cloudy CLARITY (test code = 6965783806) SPUN BODY FLUID Light Yellow COLOR (test code = 2904968564) SPUN BODY FLUID Cloudy CLARITY (test code = 8219720189) Sediment (test code The sediment volume is = 0525735056) <0.01 mLs of the total fluid volume of 5 mLs and its color is red. RODRIGO (test code = Test developed and RODRIGO) characteristics determined by [facility] Services. [facility] PflugervilleBODY FLUID DIRECT [id number] 08:09:17 Test Item Value Reference Range Interpretation Comments BF COLOR (test Yellow code = 3843141520) TURBIDITY (test Turbid code = 7966984967) BF WBC Count 645 See_Comment [Automated (test code = message] The 5960708933) system which generated this result transmitted reference range : /?L. The reference range was not used to interpret this result as normal/abnormal . BF RBC Count See_Comment [Automated (test code = message] The 6124143506) system which generated this result transmitted reference range : /?L. The reference range was not used to interpret this result as normal/abnormal . RODRIGO (test code = The reference range RODRIGO) and other method performance specifications have not been established for this body fluid. ?The test results must be integrated into the clinical context for interpretation. [facility] PflugervilleGLYCOSYLATED HEMOGLOBIN (A1C)2022-04-11 04:15:40 Test Item Value Reference Range Interpretation Comments HGB A1C (test code = 5.0 % 4.0-5.7 4548-4) RODRIGO (test code = RODRIGO) Reference RangesNormal: <5.7%Prediabetes: 5.7 - 6.4%Diabetes: > 6.5% Lab Interpretation (test Normal code = 04861-2) [facility]ervilleACTIVATED PARTIAL THRMPLAS [id number] 21:53:50 Test Item Value Reference Range Interpretation [...] seconds. Lab Interpretation Normal (test code = 27025-3) [facility] PflugervillePROTHROMBIN TIME / [id number] 21:51:52 Test Item Value Reference Range Interpretation [...] tions. Lab Interpretation (test Normal code = 96891-4) [facility] PflugervilleCOMP. METABOLIC PANEL (86985)2022-04-10 21:50:30 Test Item Value Reference Range Interpretation Comments NA (test code = 138 mmol/L 135-145 4235950393) K (test code = 4.7 mmol/L 3.5-5.0 0979708417) CL (test code = 114 mmol/L 98-108 H 1250489286) CO2 TOTAL (test code = 21 mmol/L 23-31 L 4434214453) AGAP (test code = 3 2-16 4875410853) BUN (test code = 55 mg/dL 7-23 H 7179828785) GLUCOSE (test code = 119 mg/dL 70-110 H 2504449193) CREATININE (test code = 1.98 mg/dL 0.60-1.25 H 3144902760) TOTAL BILI (test code = 0.7 mg/dL 0.1-1.9 7198383882) CALCIUM (test code = 7.7 mg/dL 8.6-10.6 L 9129763943) T PROTEIN (test code = 6.0 g/dL 6.3-8.2 L 4040798881) ALBUMIN (test code = 2.5 g/dL 3.5-5.0 L 4649951517) ALK PHOS (test code = 85 U/L 34-122 5967559729) ALTv (test code = 23 U/L 5-50 1742-6) AST(SGOT) (test code = 33 U/L 13-40 3464190666) eGFR (test code = 34.1 mL/min/1.73m2 2942389778) RODRIGO (test code = RODRIGO) Association of [...] tests). Lab Interpretation Abnormal (test code = 84820-2) [facility] WITH [id number] 21:35:48 Test Item Value Reference Range Interpretation [...] RDW-SD (test code = 50.8 fL 38.5-51.6 98142-2) RDW-CV (test code = 16.6 % 12.1-15.4 H 788-0) PLT (test code = 170 See_Comment [Automated 777-3) message] The sy stem which generated this result transmitted reference range : 150 - 328 10*3/ ?L. The reference r kelin was not used to interpret this result as normal/abnormal . MPV (test code = 9.2 fL 9.8-13.0 L 95280-3) NRBC/100 WBC (test 0.0 See_Comment [Automat ed code = 7839947343) message] The system which generated this result transmitted reference range : 0.0 - 10.0 /100 WBCs. The refer ence range was not u sed to interpret th is result as normal/abnormal . NRBC x10^3 (test code See_Comment [Auto mated = 9672021990) message] The s ystem which generated this result transmitted reference range : 10*3/?L. The reference range was not used to interpret this result as normal/abnormal . GRAN MAT (NEUT) % 73.6 % (test code = 770-8) IMM GRAN % (test code 1.30 % = 6957078248) LYMPH % (test code = 12.6 % 736-9) MONO % (test code = 8.9 % 5905-5) EOS % (test code = 3.2 % 713-8) BASO % (test code = 0.4 % 706-2) GRAN MAT x10^3(ANC) 3.40 10*3/uL 1.99-6.95 (test code = 5006878068) IMM GRAN x10^3 (test 0.06 10*3/uL 0.00-0.06 code = 1333925504) LYMPH x10^3 (test code 0.58 10*3/uL 1.09-3.23 L = 731-0) MONO x10^3 (test code 0.41 10*3/uL 0.36-1.02 = 742-7) EOS x10^3 (test code = 0.15 10*3/uL 0.06-0.53 711-2) BASO x10^3 (test code 0.01-0.09 = 704-7) Lab Interpretation Abnormal (test code = 98671-2) [facility], [id number] 09:54:12SPECIMEN NUMBER: [id number] CULTURE, URINE SPECIMEN NUMBER: [id number] SPECIMEN COMMENT: URINE SOURCE:URINE REPORT STATUS: FINAL FINAL REPORT: 03/28/2022 10-50,000 CFU/ML UROGENITAL ANUPAM PRESENT NO COMMON [id number] 04:49:09 Test Item Value Reference Range Interpretation Comments MAGNESIUM (test code = 2226) 2.2 MG/DL 1.6-2.6 COMPREHENSIVE METABOLIC [id number] 04:36:10 Test Item Value Reference Range Interpretation Comments GLUCOSE (test code = 96 MG/DL 70-99 2216) BUN (test code = 39 MG/DL 8-23 H 2207) CREATININE (test 2.06 MG/DL 0.80-1.40 H code = 2214) eGFR (2021 CKD-EPI) 35 ML/MIN/1.73 >60 L (test code = 53482) CALC BUN/CREAT (test 19 RATIO 6-28 code = 2235) SODIUM (test code = 141 MEQ/L 368-610 8899) POTASSIUM (test code 4.3 MEQ/L 3.5-5.4 = [...] message] (test code = 2206) The syste [employer] which generated this result transmit ros reference range : <=1.2. The refe rence range was not u sed to interpret th is result as normal/abnormal . ALKALINE PHOSPHATASE 94 U/L 40-123 (test code = 2203) AST (test code = 20 U/L 9-50 2217) ALT (test code = 16 U/L 5-50 2218) CBC W/AUTO DIFF WITH [id number] 02:15:32 Test Item Value Reference Range Interpretation [...] message] code = 1065) WBC'S The system [employer] generated this result transmitted ref erence range: [...] 0.00-0.11 UNLESS O THERWISE (test code = 57694) INDICATE D, ALL TESTING PERFORM [facility]. [address] [place] [id number] [place] [address] DIRECTOR: SHERRI PLASENCIA M.D. CLIA NUMBER [id number] CAP ACCREDITATION N O. [id number] COMP. METABOLIC PANEL ([id number])2022 01:50:35 Test Item Value Reference Range Interpretation Comments NA (test code = 136 mmol/L 135-145 [id number]) K (test code = 5.2 mmol/L 3.5-5.0 H [id number]) CL (test code = 102 mmol/L 98-108 1697129229) CO2 TOTAL (test code = 26 mmol/L 23-31 2480087866) AGAP (test code = 2-16 2393617367) BUN (test code = 49 mg/dL 7-23 H 0907899011) GLUCOSE (test code = 143 mg/dL 70-110 H 8284879473) CREATININE (test code = 2.26 mg/dL 0.60-1.25 H 0646868516) TOTAL BILI (test code = 0.4 mg/dL 0.1-1.1 6633586367) CALCIUM (test code = 8.2 mg/dL 8.6-10.6 L 4197548890) T PROTEIN (test code = 6.8 g/dL 6.3-8.2 1268280455) ALBUMIN (test code = 2.9 g/dL 3.5-5.0 L 2275484047) ALK PHOS (test code = 101 U/L 34-122 0462852038) ALTv (test code = 14 U/L 5-50 1742-6) AST(SGOT) (test code = 21 U/L 13-40 0102096426) eGFR (test code = mL/min/1.73m2 [id number]) RODRIGO (test code = RODRIGO) Association of [...] tests). Lab Interpretation Abnormal (test code = 36922-5) [facility] / [id number] 01:37:54 Test Item Value Reference Range Interpretation [...] tions. Lab Interpretation (test Abnormal code = 31036-5) [facility] THRMPLAS [id number] 01:37:54 Test Item Value Reference Range Interpretation Comments APTT Patient (test code See_Comment H [Au tomated message] = 3173-2) The system [employer] generated this result transmitted ref erence range: 26 - 36 Seconds. The reference range was not used to int erpret this result as normal/abnormal . Lab Interpretation (test Abnormal code = 68450-4) [facility] [place] WITH [id number] 01:33:12 Test Item Value Reference Range Interpretation Comments WBC (test code = See_Comment [Automated 8890-2) message] The sy stem which generated this result transmitted reference range : 4.20 - 10.70 10*3/?L. The reference range was not used to interpret this result as normal/abnormal . RBC (test code = See_Comment L [Automated 199-8) message] The sy stem which generated this [...] (test code = 54.2 fL 38.5-51.6 H 84416-0) RDW-CV (test code = 19.4 % 12.1-15.4 H 788-0) PLT (test code = See_Comment [Automated 777-3) message] The sy stem which generated this result transmitted reference range : 150 - 328 10*3/ ?L. The reference r kelin was not used to interpret this result as normal/abnormal . MPV (test code = 9.2 fL 9.8-13.0 L 82762-7) NRBC/100 WBC (test See_Comment [Automat ed code = 4398165231) message] The system which generated this result transmitted reference range : 0.0 - 10.0 /100 WBCs. The refer ence range was not u sed to interpret th is result as normal/abnormal . NRBC x10^3 (test code See_Comment [Auto mated = 8953090253) message] The s ystem which generated this result transmitted reference range : 10*3/?L. The reference range was not used to interpret this result as normal/abnormal . GRAN MAT (NEUT) % 75.8 % (test code = 770-8) IMM GRAN % (test code 0.80 % = 1262639516) LYMPH % (test code = 12.1 % 736-9) MONO % (test code = 8.3 % 5905-5) EOS % (test code = 2.5 % 713-8) BASO % (test code = 0.5 % 706-2) GRAN MAT x10^3(ANC) 4.56 10*3/uL 1.99-6.95 (test code = 0017082918) IMM GRAN x10^3 (test 0.05 10*3/uL 0.00-0.06 code = 4616659935) LYMPH x10^3 (test code 0.73 10*3/uL 1.09-3.23 L = 731-0) MONO x10^3 (test code 0.50 10*3/uL 0.36-1.02 = 742-7) EOS x10^3 (test code = 0.15 10*3/uL 0.06-0.53 711-2) BASO x10^3 (test code 0.03 10*3/uL 0.01-0.09 = 704-7) Lab Interpretation Abnormal (test code = 54167-8) [facility]2021-12-28 13:35:14 Test Item Value Reference Range Interpretation Comments POCT GLU (test code = 4637997280) 160 mg/dL 70-110 H Lab Interpretation (test code = Abnormal 97991-1) [facility] METABOLIC PANEL (NA, K, CL, CO2, GLUCOSE, BUN, CREATININE, CA)2021-12-28 09:59:31 Test Item Value Reference Range Interpretation Comments NA (test code = 135 mmol/L 135-145 6106429962) K (test code = 3.8 mmol/L 3.5-5 0966682399) CL (test code = 107 mmol/L 98-108 5541180116) CO2 TOTAL (test code = 25 mmol/L 23-31 2110702523) AGAP (test code = 2-16 5108422748) BUN (test code = 42 mg/dL 7-23 H 4815889052) GLUCOSE (test code = 150 mg/dL 70-110 H 3324232092) CREATININE (test code = 2.01 mg/dL 0.6-1.25 H 6699528808) CALCIUM (test code = 7.6 mg/dL 8.6-10.6 L 9690909262) eGFR (test code = mL/min/1.73m2 9817680795) RODRIGO (test code = RODRIGO) Association of [...] tests). Lab Interpretation Abnormal (test code = 19006-9) [facility] WITH [id number] 09:37:28 Test Item Value Reference Range Interpretation [...] (test code = 52.0 fL 38.5-51.6 H 73436-3) RDW-CV (test code = 19.2 % 12.1-15.4 H 788-0) PLT (test code = See_Comment [Automated 777-3) message] The sy stem which generated this result transmitted reference range : 150 - 328 10*3/ ?L. The reference r kelin was not used to interpret this result as normal/abnormal . MPV (test code = 9.6 fL 9.8-13 L 96370-7) NRBC/100 WBC (test See_Comment [Automat ed code = 5967385209) message] The system which generated this result transmitted reference range : 0.0 - 10.0 /100 WBCs. The refer ence range was not u sed to interpret th is result as normal/abnormal . NRBC x10^3 (test code See_Comment [Auto mated = 8746461555) message] The s ystem which generated this result transmitted reference range : 10*3/?L. The reference range was not used to interpret this result as normal/abnormal . GRAN MAT (NEUT) % 75.3 % (test code = 770-8) IMM GRAN % (test code 0.60 % = 9042060444) LYMPH % (test code = 11.9 % 736-9) MONO % (test code = 9.6 % 5905-5) EOS % (test code = 2.3 % 713-8) BASO % (test code = 0.3 % 706-2) GRAN MAT x10^3(ANC) 2.34 10*3/uL 1.99-6.95 (test code = 9489404322) IMM GRAN x10^3 (test 0-0.06 code = 7877791981) LYMPH x10^3 (test code 0.37 10*3/uL 1.09-3.23 L = 731-0) MONO x10^3 (test code 0.30 10*3/uL 0.36-1.02 L = 742-7) EOS x10^3 (test code = 0.07 10*3/uL 0.06-0.53 711-2) BASO x10^3 (test code 0.01-0.09 = 704-7) Lab Interpretation Abnormal (test code = 28502-9) [facility] GLUCOSE (AUTOMATED)2021-12-28 00:57:50 Test Item Value Reference Range Interpretation Comments POCT GLU (test code = 0599191884) 146 mg/dL 70-110 H Lab Interpretation (test code = Abnormal 90321-6) [facility] GLUCOSE (AUTOMATED)2021-12-27 21:58:17 Test Item Value Reference Range Interpretation Comments POCT GLU (test code = 8757623112) 125 mg/dL 70-110 H Lab Interpretation (test code = Abnormal 43337-1) [facility] GLUCOSE (AUTOMATED)2021-12-27 16:47:36 Test Item Value Reference Range Interpretation Comments POCT GLU (test code = 3248515970) 121 mg/dL 70-110 H Lab Interpretation (test code = Abnormal 66773-0) [facility] GLUCOSE (AUTOMATED)2021-12-27 12:53:58 Test Item Value Reference Range Interpretation Comments POCT GLU (test code = 2654690275) 114 mg/dL 70-110 H Lab Interpretation (test code = Abnormal 61897-4) [facility] GLUCOSE (AUTOMATED)2021-12-27 01:17:27 Test Item Value Reference Range Interpretation Comments POCT GLU (test code = 1950783751) 184 mg/dL 70-110 H Lab Interpretation (test code = Abnormal 30628-2) [facility] GLUCOSE (AUTOMATED)2021-12-26 21:25:07 Test Item Value Reference Range Interpretation Comments POCT GLU (test code = 6454555195) 151 mg/dL 70-110 H Lab Interpretation (test code = Abnormal 67578-2) [facility] GLUCOSE (AUTOMATED)2021-12-26 17:40:52 Test Item Value Reference Range Interpretation Comments POCT GLU (test code = 9811119913) 148 mg/dL 70-110 H Lab Interpretation (test code = Abnormal 75199-6) [facility] GLUCOSE (AUTOMATED)2021-12-26 12:54:00 Test Item Value Reference Range Interpretation Comments POCT GLU (test code = 0839596215) 150 mg/dL 70-110 H Lab Interpretation (test code = Abnormal 28393-4) [facility] GLUCOSE (AUTOMATED)2021-12-26 10:22:39 Test Item Value Reference Range Interpretation Comments POCT GLU (test code = 8152426275) 150 mg/dL 70-110 H Lab Interpretation (test code = Abnormal 29003-6) [facility]2021-12-26 01:21:28 Test Item Value Reference Range Interpretation Comments POCT GLU (test code = 8774021591) 136 mg/dL 70-110 H Lab Interpretation (test code = Abnormal 88268-7) [facility] METABOLIC PANEL (NA, K, CL, CO2, GLUCOSE, BUN, CREATININE, CA)2021-12-14 22:24:31 Test Item Value Reference Range Interpretation Comments NA (test code = 135 mmol/L 135-145 2722449549) K (test code = 5.5 mmol/L 3.5-5 H 7759021042) CL (test code = 105 mmol/L 98-108 2645228775) CO2 TOTAL (test code = 21 mmol/L 23-31 L 9492910194) AGAP (test code = 2-16 9598653257) BUN (test code = 44 mg/dL 7-23 H 8162486559) GLUCOSE (test code = 164 mg/dL 70-110 H 4397011095) CREATININE (test code = 1.79 mg/dL 0.6-1.25 H 0672785182) CALCIUM (test code = 7.9 mg/dL 8.6-10.6 L 1866532754) eGFR (test code = mL/min/1.73m2 7453754459) RODRIGO (test code = RODRIGO) Association of [...] tests). Lab Interpretation Abnormal (test code = 54654-0) [facility] WITH [id number] 22:14:09 Test Item Value Reference Range Interpretation [...] (test code = 52.1 fL 38.5-51.6 H 67901-2) RDW-CV (test code = 20.0 % 12.1-15.4 H 788-0) PLT (test code = See_Comment [Automated 777-3) message] The sy stem which generated this result transmitted reference range : 150 - 328 10*3/ ?L. The reference r kelin was not used to interpret this result as normal/abnormal . MPV (test code = 9.8 fL 9.8-13 26060-7) NRBC/100 WBC (test See_Comment [Automat ed code = 5662114166) message] The system which generated this result transmitted reference range : 0.0 - 10.0 /100 WBCs. The refer ence range was not u sed to interpret th is result as normal/abnormal . NRBC x10^3 (test code See_Comment [Auto mated = 3484618642) message] The s ystem which generated this result transmitted reference range : 10*3/?L. The reference range was not used to interpret this result as normal/abnormal . GRAN MAT (NEUT) % 79.6 % (test code = 770-8) IMM GRAN % (test code 0.90 % = 9202961473) LYMPH % (test code = 10.6 % 736-9) MONO % (test code = 7.4 % 5905-5) EOS % (test code = 1.2 % 713-8) BASO % (test code = 0.3 % 706-2) GRAN MAT x10^3(ANC) 4.60 10*3/uL 1.99-6.95 (test code = 6381103146) IMM GRAN x10^3 (test 0.05 10*3/uL 0-0.06 code = 3251704026) LYMPH x10^3 (test code 0.61 10*3/uL 1.09-3.23 L = 731-0) MONO x10^3 (test code 0.43 10*3/uL 0.36-1.02 = 742-7) EOS x10^3 (test code = 0.07 10*3/uL 0.06-0.53 711-2) BASO x10^3 (test code 0.01-0.09 = 704-7) Lab Interpretation Abnormal (test code = 38541-7) [facility] GLUCOSE (AUTOMATED)2021-12-09 16:40:51 Test Item Value Reference Range Interpretation Comments POCT GLU (test code = 8750357112) 200 mg/dL 70-110 H Lab Interpretation (test code = Abnormal 13672-6) [facility] GLUCOSE (AUTOMATED)2021-12-09 12:53:24 Test Item Value Reference Range Interpretation Comments POCT GLU (test code = 8475142157) 197 mg/dL 70-110 H Lab Interpretation (test code = Abnormal 70565-9) [facility] GLUCOSE (AUTOMATED)2021-12-09 01:58:46 Test Item Value Reference Range Interpretation Comments POCT GLU (test code = 6191416788) 138 mg/dL 70-110 H Lab Interpretation (test code = Abnormal 85534-6) [facility] GLUCOSE (AUTOMATED)2021-12-08 22:02:54 Test Item Value Reference Range Interpretation Comments POCT GLU (test code = 6972283234) 123 mg/dL 70-110 H Lab Interpretation (test code = Abnormal 54776-5) [facility] GLUCOSE (AUTOMATED)2021-12-08 17:18:39 Test Item Value Reference Range Interpretation Comments POCT GLU (test code = 6799432121) 200 mg/dL 70-110 H Lab Interpretation (test code = Abnormal 71594-3) [facility] GLUCOSE (AUTOMATED)2021-12-08 14:20:51 Test Item Value Reference Range Interpretation Comments POCT GLU (test code = 2296545250) 189 mg/dL 70-110 H Lab Interpretation (test code = Abnormal 38342-0) [facility] GLUCOSE (AUTOMATED)2021-12-08 02:14:54 Test Item Value Reference Range Interpretation Comments POCT GLU (test code = 3818166715) 276 mg/dL 70-110 H Lab Interpretation (test code = Abnormal 47228-2) [facility]cosylated Hemoglobin (A1C)2021-12-08 00:06:25 Test Item Value Reference Range Interpretation Comments HGB A1C (test code = 6.6 % 4-5.7 H 4548-4) RODRIGO (test code = RODRIGO) Reference RangesNormal: <5.7%Prediabetes: 5.7 - 6.4%Diabetes: > 6.5% Lab Interpretation (test Abnormal code = 48512-8) [facility]ervilleMagnesium [id number] 23:59:59 Test Item Value Reference Range Interpretation Comments MAGNESIUM (test code = 6013546212) 2.6 mg/dL 1.7-2.4 H Lab Interpretation (test code = Abnormal 68010-6) [facility]id [facility] (Total Cholesterol, Triglycerides, HDL) - [id number] 23:59:59 Test Item Value Reference Range Interpretation Comments CHOL (test code = 106 mg/dL 120-200 L 5191393579) HDL (test code = 20 mg/dL See_Comment L [Automated message] 3113312955) The system [employer] generated this result transmit ros reference range : >=40. The refer ence range was not u sed to interpret th is result as normal/abnormal . HDLC RATIO (test code = See_Comment H [Au tomated message] 8977727268) The system [employer] generated this result transmit ros reference range : <=5.0. The refe rence range was not u sed to interpret th is result as normal/abnormal . TRIG (test code = 86 mg/dL 30-170 3661552319) LDL CHOL (test code = 69 mg/dL See_Comment [Auto mated message] 13622-2) The system [employer] generated this result transmit ros reference range : <=160. The refe rence range was not u sed to interpret th is result as normal/abnormal . VLDL (test code = 17 mg/dL 5-60 2182770731) Lab Interpretation (test Abnormal code = 66718-8) [facility]Phosphorus [id number] 23:59:39 Test Item Value Reference Range Interpretation Comments PHOSPHORUS (test code = 8184887785) 4.9 mg/dL 2.5-5 Lab Interpretation (test code = Normal 95134-6) [facility]ervilleN-TERMINAL [id number] 21:09:22 Test Item Value Reference Range Interpretation Comments NT-proBNP (test code 1600 pg/mL See_Comment H [Autom ated = 5602188565) message] The system which generated this result transmitted reference range : <=125. The reference range was not used to interpret this result as normal/abnormal . RODRIGO (test code = RODRIGO) Biotin has been reported to cause a negative bias, interpret results relative to patient's use of biotin. Lab Interpretation Abnormal (test code = 79348-9) [facility]ervilleCreatine [id number] 19:56:54 Test Item Value Reference Range Interpretation Comments CK (test code = 5001779255) 28 U/L 33-194 L Lab Interpretation (test code = Abnormal 43454-6) [facility]. METABOLIC PANEL (07200)2021-12-07 16:38:09 Test Item Value Reference Range Interpretation Comments NA (test code = 137 mmol/L 135-145 5565073263) K (test code = 5.4 mmol/L 3.5-5 H 4546712714) CL (test code = 106 mmol/L 98-108 1094331843) CO2 TOTAL (test code = 23 mmol/L 23-31 2867751107) AGAP (test code = 2-16 4879413815) BUN (test code = 49 mg/dL 7-23 H 4871692390) GLUCOSE (test code = 154 mg/dL 70-110 H 2446469261) CREATININE (test code = 2.34 mg/dL 0.6-1.25 H 3703289959) TOTAL BILI (test code = 0.6 mg/dL 0.1-1.2 4372815740) CALCIUM (test code = 8.0 mg/dL 8.6-10.6 L 2854746866) T PROTEIN (test code = 6.1 g/dL 6.3-8.2 L 9981633651) ALBUMIN (test code = 2.5 g/dL 3.5-5 L 8891221764) ALK PHOS (test code = 100 U/L 34-122 8367683221) ALTv (test code = 15 U/L 5-50 1742-6) AST(SGOT) (test code = 23 U/L 13-40 7894088877) eGFR (test code = mL/min/1.73m2 2354782282) RODRIGO (test code = RODRIGO) Association of [...] tests). Lab Interpretation Abnormal (test code = 11818-6) [facility] THRMPLAS [id number] 16:37:12 Test Item Value Reference Range Interpretation [...] seconds. Lab Interpretation Normal (test code = 98999-2) [facility]ervillePROTHROMBIN TIME / [id number] 16:35:10 Test Item Value Reference Range Interpretation [...] tions. Lab Interpretation (test Abnormal code = 90079-9) [facility]CBC WITH [id number] 16:11:30 Test Item Value Reference Range Interpretation [...] (test code = 53.5 fL 38.5-51.6 H 30731-3) RDW-CV (test code = 20.5 % 12.1-15.4 H 788-0) PLT (test code = See_Comment [Automated 777-3) message] The sy stem which generated this result transmitted reference range : 150 - 328 10*3/ ?L. The reference r kelin was not used to interpret this result as normal/abnormal . MPV (test code = 10.0 fL 9.8-13 54544-3) NRBC/100 WBC (test See_Comment [Automat ed code = 9673589595) message] The system which generated this result transmitted reference range : 0.0 - 10.0 /100 WBCs. The refer ence range was not u sed to interpret th is result as normal/abnormal . NRBC x10^3 (test code See_Comment [Auto mated = 5106014963) message] The s ystem which generated this result transmitted reference range : 10*3/?L. The reference range was not used to interpret this result as normal/abnormal . GRAN MAT (NEUT) % 82.5 % (test code = 770-8) IMM GRAN % (test code 0.90 % = 6162324415) LYMPH % (test code = 7.8 % 736-9) MONO % (test code = 7.3 % 5905-5) EOS % (test code = 1.2 % 713-8) BASO % (test code = 0.3 % 706-2) GRAN MAT x10^3(ANC) 5.74 10*3/uL 1.99-6.95 (test code = 9925009959) IMM GRAN x10^3 (test 0.06 10*3/uL 0-0.06 code = 7379621878) LYMPH x10^3 (test code 0.54 10*3/uL 1.09-3.23 L = 731-0) MONO x10^3 (test code 0.51 10*3/uL 0.36-1.02 = 742-7) EOS x10^3 (test code = 0.08 10*3/uL 0.06-0.53 711-2) BASO x10^3 (test code 0.01-0.09 = 704-7) Lab Interpretation Abnormal (test code = 34551-5) [facility] [place]"
[2022-09-19] MEDS ORDERED: ALBUMIN HUMAN 25% 100 ML IV ONE (00:44)
[2022-09-19 01:08] LABS: Absolute Lymphocytes (CBC) 0.5 K/uL (0.7-4.9); Hematocrit 34.5 % (39.6-49.0); MCV 84.5 fL (80-100); MPV 7.6 fL (7.6-11.3); RBC Red Blood Cell Count 4.08 M/uL (4.33-5.43)
[2022-09-19 01:18] LABS: Albumin 2.6 g/dL (3.4-5.0); Bilirubin Total 0.3 mg/dL (0.2-1.0); Potassium 5.1 mEq/L (3.5-5.1); Protein, Total 6.4 g/dL (6.4-8.2)
[2022-09-19] MEDS ORDERED: LIDOCAINE 1% MPF 30 ML VIAL ONE (03:53)
[2022-09-19] MEDS ORDERED: MORPHINE 4 MG/ML SYR ONE (04:17)
[2022-09-19] MEDS ORDERED: ONDANSETRON 4 MG/2 ML VIAL ONE (04:18)
[2022-09-19 04:46] LABS: Protime INR 0.99
--- NOTE | 2022-09-19 04:53 | EDPHYS ---
Physician Documentation [facility] Name: Mc Willingham Age: 67 yrs Sex: Male : 1955 Arrival Date: 09/18/2022 Time: 21:40 Bed 4 Private MD: ED Physician Luis Mckeon HPI: 09/18 22:03 This 67 yrs old Male presents to ER via Ambulatory with complaints of sp4 abdominal opening. 09/19 05:04 Very pleasant 67-year-old male presents secondary to leakage from right lower abdominal sp4 paracentesis puncture wound. Patient has history of liver cirrhosis and recurrent tense ascites. Patient was here yesterday on 09/17/2022 and underwent ultrasound-guided paracentesis at 1406 since then patient has developed persistent leakage of ascitic fluid from the puncture wound. Patient states that he was only drained 4 L instead of his regular 8 L and that he is ascites is still tense in the Abdomen. . Patient requests paracentesis.. Historical: - Allergies: 09/18 21:55 No Known Allergies; kl - Home Meds: 21:55 furosemide 40 mg Oral tablet 1 tab 2 times per day [Active]; Lactulose 30 Oral for kl constipation [Active]; spironolactone 25 mg Oral tablet 1 tab daily [Active]; - PMHx: 21:55 cirrhosis of liver; kl - PSHx: 21:55 None; kl - Immunization history:: Adult Immunizations not immunized. - Social history:: Smoking status: Patient denies any tobacco usage or history of. - Family history:: not pertinent. ROS: 09/19 05:04 Constitutional: Negative for fever, chills, and weight loss, Eyes: Negative for injury, sp4 pain, redness, and discharge, ENT: Negative for injury, pain, and discharge, Neck: Negative for injury, pain, and swelling, Cardiovascular: Negative for chest pain, palpitations, and edema, Respiratory: Negative for shortness of breath, cough, wheezing, and pleuritic chest pain, Abdomen/GI: Negative for nausea, vomiting, diarrhea, and constipation, positive for right lower abdominal paracentesis puncture wound that is leaking ascitic fluid. This is a leakage of clear ascitic fluid. There is also tense ascites and abdominal distention. There is umbilical hernia. Back: Negative for injury and pain, : Negative for injury, bleeding, discharge, and swelling, MS/Extremity: Negative for injury and deformity, Skin: Negative for injury, rash, and discoloration, Neuro: Negative for headache, weakness, numbness, tingling, and seizure, Psych: Negative for depression, anxiety, Allergy/Immunology: Negative for hives, rash, and allergies Endocrine: Negative for neck swelling, polydipsia, polyuria, polyphagia, and weight changes Hematologic/Lymphatic: Negative for swollen nodes, abnormal bleeding, and unusual bruising Exam: 05:04 Constitutional: This is a well developed, well nourished patient who is awake, alert, sp4 and in no acute distress. Ill-appearing male thin, distended abdomen with ascites Head/Face: Normocephalic, atraumatic. Eyes: Pupils equal round and reactive to light, extra-ocular motions intact. Lids and lashes normal. Conjunctiva and sclera are not injected. Cornea within normal limits. Periorbital areas with no swelling, redness, or edema. ENT: Nares patent. No nasal discharge, no septal abnormalities noted. Tympanic membranes are normal and external auditory canals are clear. Oropharynx with no redness, swelling, or masses, exudates, or evidence of obstruction, uvula midline. Mucous membranes moist. Neck: Trachea midline, no thyromegaly or masses palpated, and no cervical lymphadenopathy. Supple, full range of motion without nuchal rigidity, or vertebral point tenderness. Chest/axilla: Normal chest wall appearance and motion. Nontender with no deformity. No lesions are appreciated. Cardiovascular: Regular rate and rhythm with a normal S1 and S2. No gallops, murmurs, or rubs. Normal PMI, no JVD. No pulse deficits. Respiratory: Lungs have equal breath sounds bilaterally, clear to auscultation and percussion. No rales, rhonchi or wheezes noted. No increased work of breathing, no retractions or nasal flaring. Abdomen/GI: Soft, non-tender, there is tense abdominal ascites with caput medusa, there is right lower abdominal quadrant puncture wound from recent paracentesis that is leaking clear ascitic fluid. No respiratory compromise. Back: No spinal tenderness. No costovertebral tenderness. Skin: Warm, dry with normal turgor. Normal color with no rashes, no lesions, and no evidence of cellulitis. MS/ Extremity: Pulses equal, no cyanosis. Neurovascular intact. Full, normal range of motion. Neuro: Awake and alert, GCS 15, oriented to person, place, time, and situation. Cranial nerves II-XII grossly intact. Motor strength 5/5 in all extremities. Sensory grossly intact. Psych: Awake, alert, with orientation to person, place and time. Behavior, mood, and affect are within normal limits Vital Signs: 09/18 21:54 BP 128 / 85; Pulse 75; Resp 20; Temp 97.3; Pulse Ox 100% ; Weight 81.65 kg (R); Height kl 5 ft. 8 in. ; Pain 0/10; 09/19 00:57 BP 138 / 84; Pulse 67; Resp 16 S; Pulse Ox 100% on R/A; ha1 02:00 BP 132 / 82; Pulse 67; Resp 16; Pulse Ox 100% on R/A; jb4 03:10 BP 154 / 90; Pulse 72; Resp 18 S; Pulse Ox 100% ; ha1 04:06 BP 141 / 89; Pulse 75; Resp 19 S; Pulse Ox 100% on R/A; ha1 05:15 BP 118 / 82; Pulse 65; Resp 16; Pulse Ox 100% on R/A; jb4 09/18 21:54 Body Mass Index 27.37 (81.65 kg, 172.72 cm) kl 09/18 21:54 Pain Scale: Adult kl Procedures: 05:04 Paracentesis: The risks and benefits of the procedure were discussed with the patient sp4 or guardian in detail, aseptic technique was employed throughout the procedure, the catheter was placed in the posterior aspect of right lateral abdomen and right lower quadrant, appoximately 0 liters of fluid was removed, Paracentesis attempted but was not successful, the patient did not experience any apparent complications, Ultrasound-guided paracentesis attempt - attempted paracentesis but this was not successful secondary to pain at the puncture site at the right flank. Second attempt was made at the right lower abdominal quadrant again patient complained of moderate to severe pain at the puncture wound and paracentesis was aborted in the ER. . MDM: 09/18 22:10 Patient medically screened. sp4 09/19 04:58 ED course: EXAM: CTAbdomen and Pelvis Without Intravenous Contrast CLINICAL HISTORY: sp4 The patient is 67 years old and is Male; leak from abdominal puncture wound right lower quadrant TECHNIQUE: Axial computed tomography images of the abdomen and pelvis without intravenous contrast. Sagittal and coronal reformatted images were created and reviewed. This CT exam was performed using one or more of the following dose reduction techniques: automated exposure control, adjustment of the mA and/or kV according to patient size, and/or use of iterative reconstruction technique. COMPARISON: CT abdomen pelvis October 10, 2021 FINDINGS: ARTIFACTS: The exam is suboptimal secondary to motion artifact. LUNG BASES: Atelectasis in the lung bases is noted. ABDOMEN: LIVER: The liver is heterogeneous with extensive nodular contour. GALLBLADDER AND BILE DUCTS: Calcified gallstones are present within the gallbladder. PANCREAS: Unremarkable. No ductal dilation. SPLEEN: The spleen is enlarged. ADRENALS: Unremarkable. No mass. KIDNEYS AND URETERS: No obstructing stones. No hydronephrosis. No perinephric fluid. STOMACH AND BOWEL: The stomach is distended with fluid and food contents. Small duodenal diverticulum is noted without surrounding inflammation. The small bowel is otherwise normal in appearance. Stool is present throughout colon. There is no mucosal thickening or evidence of obstruction. PELVIS: APPENDIX: The appendix is normal in caliber without surrounding inflammation. BLADDER: Unremarkable. No stones. REPRODUCTIVE: Unremarkable as visualized. ABDOMEN and PELVIS: INTRAPERITONEAL SPACE: Large volume ascites is present throughout the abdomen and pelvis. No free air. BONES/JOINTS: Minimal degenerative change of the lower lumbar spine is present. SOFT TISSUES: A large fluid containing umbilical hernia is present. Mild diffuse body wall edema is present. Overlying gauze of the right lateral abdominal wall is present. There is no subcutaneous air within this region. No definite fluid tract is noted. VASCULATURE: Unremarkable. No abdominal aortic aneurysm. LYMPH NODES: Unremarkable. No enlarged lymph nodes. IMPRESSION: 1. Overlying gauze of the right lateral abdominal wall is present. There is no subcutaneous air within this region. No definite fluid tract is noted. 2. Cirrhotic liver, splenomegaly, and large volume ascites. 3. Moderate body wall edema with fluid along the anterior lower abdominal/pelvic wall. 4. Large fluid containing umbilical hernia. . 05:04 Differential Diagnosis Ascitic fluid leak, tense ascites, acute on chronic liver sp4 failure, liver cirrhosis,. Data reviewed: vital signs, nurses notes, old medical records, lab test result(s), radiologic studies, CT scan. Consideration of Admission/Observation Patient was admitted/placed on observation. Escalation of care including admission/observation considered. Management of patient was discussed with the following: Hospitalist: Discussed with admission team. ED course: Patient arrived today with leakage of ascitic fluid from abdominal puncture wound that was leaking ever since patient had paracentesis on 09/17/2022. Patient on the patient's report paracentesis was done with interventional radiology and puncture wound persistently leaked ascitic fluid at home. Puncture wound was sutured here in the ER and the leak of fluid has gradually subsided. Patient has tense ascites and he requested additional paracentesis. Paracentesis was attempted in the ER with ultrasound guidance however abdominal cavity could not be accessed secondary to excessive pain at the puncture site. At this time will request admission for a repeat paracentesis with interventional radiology. Repeat paracentesis will prevent fluid leak from paracentesis access site. . 09/19 00:24 Order name: PT-INR; Complete Time: 05:15 sp4 09/19 00:24 Order name: CBC with Diff; Complete Time: 04:15 sp4 09/19 00:24 Order name: CMP; Complete Time: 04:15 sp4 09/18 22:42 Order name: CT Abd/Pelvis - Without Contrast sp4 09/18 22:09 Order name: Dressing - Wound; Complete Time: 22:41 sp4 09/18 22:09 Order name: Gloves, Sterile; Complete Time: 22:41 sp4 09/18 22:09 Order name: Setup Suture Tray; Complete Time: 22:41 sp4 09/19 00:24 Order name: Saline Lock; Complete Time: 00:41 sp4 09/19 00:25 Order name: Surgical Consent: consent for Paracenthesis; Complete Time: 01:00 sp4 Administered Medications: 09/18 22:41 Drug: Lidocaine Infiltration (1 %) 10 ml Volume: 20 ml; Route: Infiltration; mb9 09/19 00:43 Drug: Albumin IVPB 25 grams Volume: 100 ml; Route: IVPB; Site: right forearm; ha1 04:15 Drug: Ondansetron IVP 4 mg Route: IVP; Site: right forearm; jb4 04:16 Drug: morphine IVP or IV 4 mg Route: IVP; Infused Over: 4 mins; Site: right forearm; jb4 Disposition Summary: 09/19/22 04:52 Hospitalization Ordered Hospitalization Status: Observation sp4 Provider: Lito Chapman4 Location: Telemetry/MedSurg (observation) sp4 Condition: Stable sp4 Problem: new sp4 Symptoms: have improved sp4 Bed/Room Type: Standard sp4 Room Assignment: 411(09/19/22 05:22) cg Diagnosis - Acute on chronic liver failure, tense ascites, ascitic fluid leak from puncture sp4 wound Forms: - Medication Reconciliation Form sp4 - SBAR form sp4 Signatures: Dispatcher [employer] EDJemima Rosenberg RN RN kl Garcia, Cindy, RN RN cg Bryson, James, RN RN jb4 Eloina Santillan RN RN ha1 Breneman, Mary Beth RN RN mb9 Luis Mckeon MD MD sp4 Corrections: (The following items were deleted from the chart) 05:22 04:52 sp4 cg
--- NOTE | 2022-09-19 04:53 | ER ---
Nurse's Notes [facility] Name: Mc Willingham Age: 67 yrs Sex: Male : 1955 Arrival Date: 09/18/2022 Time: 21:40 Bed 4 Private MD: Diagnosis: Acute on chronic liver failure, tense ascites, ascitic fluid leak from puncture wound Presentation: 09/18 21:52 Chief complaint: Patient states: paracentesis done yesterday site continues to drain kl today states"it wont stop leaking. 21:54 Coronavirus screen: Vaccine status: Patient reports being unvaccinated. Ebola Screen: Patient negative for fever greater than or equal to 101.5 degrees Fahrenheit, and additional compatible Ebola Virus Disease symptoms. Initial Sepsis Screen: Does the patient meet any 2 criteria? No. Patient's initial sepsis screen is negative. Does the patient have a suspected source of infection? No. Patient's initial sepsis screen is negative. Risk Assessment: Do you want to hurt yourself or someone else? Patient reports no desire to harm self or others. 21:54 Method Of Arrival: Ambulatory 21:54 Acuity: POPPY 4 kl Triage Assessment: 21:56 General: Appears in no apparent distress. comfortable, Behavior is calm, cooperative. kl Pain: Denies pain. Historical: - Allergies: 21:55 No Known Allergies; kl - Home Meds: 21:55 furosemide 40 mg Oral tablet 1 tab 2 times per day [Active]; Lactulose 30 Oral for kl constipation [Active]; spironolactone 25 mg Oral tablet 1 tab daily [Active]; - PMHx: 21:55 cirrhosis of liver; kl - PSHx: 21:55 None; kl - Immunization history:: Adult Immunizations not immunized. - Social history:: Smoking status: Patient denies any tobacco usage or history of. - Family history:: not pertinent. Assessment: 09/19 00:15 General: Appears in no apparent distress. comfortable, Behavior is calm, cooperative, jb4 appropriate for age. Pain: Denies pain. Neuro: No deficits noted. Cardiovascular: Patient's skin is warm and dry. Respiratory: Airway is patent Respiratory effort is even, unlabored, Respiratory pattern is regular, symmetrical. GI: No signs and/or symptoms were reported involving the gastrointestinal system. : No signs and/or symptoms were reported regarding the genitourinary system. EENT: No signs and/or symptoms were reported regarding the EENT system. Derm: Skin is intact, Skin is pink, warm \\T\\ dry. 00:15 Musculoskeletal: Circulation, motion, and sensation intact. Range of motion: intact in jb4 all extremities. 01:30 Reassessment: Patient appears in no apparent distress at this time. Patient and/or jb4 family updated on plan of care and expected duration. Pain level reassessed. Patient is alert, oriented x 3, equal unlabored respirations, skin warm/dry/pink. 02:15 Reassessment: Patient appears in no apparent distress at this time. Patient and/or jb4 family updated on plan of care and expected duration. Pain level reassessed. Patient is alert, oriented x 3, equal unlabored respirations, skin warm/dry/pink. 03:10 Reassessment: Patient and/or family updated on plan of care and expected duration. Pain ha1 level reassessed. Patient is alert, oriented x 3, equal unlabored respirations, skin warm/dry/pink. 03:50 Reassessment: ER physician at the bedside performing paracentesis. jb4 05:27 Reassessment: Patient appears in no apparent distress at this time. Patient and/or jb4 family updated on plan of care and expected duration. Pain level reassessed. Patient is alert, oriented x 3, equal unlabored respirations, skin warm/dry/pink. Vital Signs: 09/18 21:54 BP 128 / 85; Pulse 75; Resp 20; Temp 97.3; Pulse Ox 100% ; Weight 81.65 kg (R); Height kl 5 ft. 8 in. ; Pain 0/10; 09/19 00:57 BP 138 / 84; Pulse 67; Resp 16 S; Pulse Ox 100% on R/A; ha1 02:00 BP 132 / 82; Pulse 67; Resp 16; Pulse Ox 100% on R/A; jb4 03:10 BP 154 / 90; Pulse 72; Resp 18 S; Pulse Ox 100% ; ha1 04:06 BP 141 / 89; Pulse 75; Resp 19 S; Pulse Ox 100% on R/A; ha1 05:15 BP 118 / 82; Pulse 65; Resp 16; Pulse Ox 100% on R/A; jb4 09/18 21:54 Body Mass Index 27.37 (81.65 kg, 172.72 cm) 09/18 21:54 Pain Scale: Adult ED Course: 09/18 21:45 Patient arrived in ED. im 21:55 Triage completed. kl 22:03 Luis Mckeon MD is Attending Physician. sp4 23:42 CT Abd/Pelvis - Without Contrast In Process Unspecified. EDPA 09/19 00:26 Phil Jones, RN is Primary Nurse. jb4 00:28 Initial lab(s) drawn, by az, sent to lab. Inserted saline lock: 18 gauge in right jb4 forearm, using aseptic technique. Blood collected. 00:41 CMP Sent. jb4 00:41 CBC with Diff Sent. jb4 00:41 PT-INR Sent. jb4 04:51 Lito Chapman MD is Hospitalizing Provider. sp4 Administered Medications: 09/18 22:41 Drug: Lidocaine Infiltration (1 %) 10 ml Volume: 20 ml; Route: Infiltration; Diane 09/19 00:43 Drug: Albumin IVPB 25 grams Volume: 100 ml; Route: IVPB; Site: right forearm; ha1 04:15 Drug: Ondansetron IVP 4 mg Route: IVP; Site: right forearm; jb4 04:16 Drug: morphine IVP or IV 4 mg Route: IVP; Infused Over: 4 mins; Site: right forearm; jb4 Outcome: 04:52 Decision to Hospitalize by Provider. sp4 05:48 Patient left the ED. Signatures: Dispatcher [employer] EDPA Jemima Escamilla RN RN Phil Jones RN RN jb4 Eloina Santillan RN RN ha1 Breneman, Mary Beth RN Luis Funez MD MD sp4 [place] im
--- NOTE | 2022-09-19 04:56 | P.HP ---
Certification for Inpatient Patient admitted to: Observation With expected LOS: <2 Midnights Patient will require the following post-hospital care: None Practitioner: I am a practitioner with admitting privileges, knowledge of patient current condition, hospital course, and medical plan of care. Services: Services provided to patient in accordance with Admission requirements found in Title 42 Section 412.3 of the Code of Federal Regulations Patient History Date of Service: 09/19/22 Reason for admission: abdominal weeping History of Present Illness: 67-year-old male with a past medical history of diabetes mellitus type 2, hypertension, LÓPEZ, cirrhosis liver secondary to alcohol abuse presents abdominal leaking after paracentesis yesterday. He reported they were not able to remove excessive amount around fluid yesterday. He denies abdominal pain, fever, chills, abdominal tenderness, chest pain, no hepatic encephalopathy, lower extremity edema. Laboratory evaluation Acute on chronic kidney injury BUN 40, creatinine 2.67, hypoalbuminemia 2.6, sodium normal at 138, potassium normal at 5.1, CBC no leukocytosis, microcytic anemia, hemoglobin 11.2, 34.5, platelet counts 142, no left shift INR within normal limits Plan to admit for interventional radiology to evaluate for need for paracentesis. Allergies No Known Drug Allergies Allergy (Verified 11/10/20 23:01) Unknown Home Medications: Aspirin [Aspirin EC 81 MG] 81 mg PO DAILY 30 Days #30 tab 10/15/21 Furosemide [Lasix*] 40 mg PO BIDL 30 Days #60 tab 10/15/21 Pantoprazole Sodium [Protonix] 40 mg PO BID 30 Days #60 tab 10/15/21 Spironolactone [Aldactone*] 25 mg PO BID@0900,1700 30 Days #60 tab 10/15/21 - Past Medical/Surgical History Diabetic: Yes -: HTN -: DM -: overactive bladder -: Cirrhosis of liver -: Alcohol abuse -: I and D abscess near rectum -: skin tag removal Psychosocial/ Personal History: Lives at home with family - Family History Mother -: Hypertension, Diabetes Sister -: Hypertension, Diabetes - Social History Alcohol use: Yes CD- Drugs: No Caffeine use: No Review of Systems 10-point ROS is otherwise unremarkable Physical Examination - Physical Exam General: Alert, In no apparent distress, Oriented x3 HEENT: Atraumatic, Normocephalic, PERRLA Neck: Supple, 2+ carotid pulse no bruit, JVD not distended Respiratory: Clear to auscultation bilaterally, Normal air movement Cardiovascular: No edema, Normal pulses, Regular rate/rhythm Capillary refill: <2 Seconds (Moderate ascites) Gastrointestinal: No tenderness Musculoskeletal: No clubbing, No swelling Integumentary: No rashes, No breakdown Neurological: Normal gait, Normal speech, Normal strength at 5/5 x4 extr, Cranial nerves 3-12 intact - Studies Laboratory Data (last 24 hrs) 09/19/22 00:28: Sodium 138, Potassium 5.1, BUN 40 H, Creatinine 2.67 H, Glucose 100, Total Bilirubin 0.3, AST 22, ALT 19, Alkaline Phosphatase 91 09/19/22 00:28: WBC 3.50 L, Hgb 11.2 L, Hct 34.5 L, Plt Count 142 L Assessment and Plan - Plan Assessment plan Decompensated liver cirrhosis with ascites 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 A1c in the morning. History of hypertension: Will monitor patient's blood pressure believe you are in the hospital provide medication as needed. Acute kidney injury: Suspect pararenal syndrome, nephrology to be consulted as well. We will continue diuresis with Lasix at this point time. Diet n.p.o. for paracentesis in a.m. Full code DVT SCDs Discharge Plan: Home Plan to discharge in: 24 Hours - Advance Directives Does patient have a Living Will: No Does patient have a Durable POA for Healthcare: No - Code Status/Comfort Care Code Status Assessed: Yes Code Status: Full Code Physician Review: Patient Assessed, Agree with Above Assessment and Plan Critical Care: No Time Spent Managing Pts Care (In Minutes): 55
[2022-09-19 06:01] VITALS: O2SAT 100
[2022-09-19] MEDS ORDERED: PNEUMOCOCCAL VACCINE 0.5 ML IMVAC ONE (08:00)
[2022-09-19 09:10] LABS: Specific Gravity 1.012 (1.005-1.030); Urine Bilirubin NEGATIVE (Negative); Urine Blood Negative (Negative); Urine Clarity Clear (Clear); Urine Color Light-Yellow (Yellow); Urine Glucose NEGATIVE (Negative); Urine Protein NEGATIVE (Negative); Urine Urobilinogen Normal (Normal)
--- NOTE | 2022-09-19 20:37 | RAD REPORT ---
EXAM DESCRIPTION: CT - Abdomen Pelvis Wo Contrast - 09/19/2022 4:25 am CLINICAL HISTORY: The patient is 67 years old and is Male; leak from abdominal puncture wound righ t lower quadrant TECHNIQUE: Axial computed tomography images of the abdomen and pelvis without intravenous contrast. Sagittal and coronal reformatted images were created and reviewed. This CT exam was performed usi ng one or more of the following dose reduction techniques: automated exposure control, adjustment o f the mA and/or kV according to patient size, and/or use of iterative reconstruction technique. COMPARISON: CT abdomen pelvis October 10, 2021 FINDINGS: ARTIFACTS: The exam is suboptimal secondary to motion artifact. LUNG BASES: Atelectasis in the lung bases is noted. ABDOMEN: LIVER: The liver is heterogeneous with extensive nodular contour. GALLBLADDER AND BILE DUCTS: Calcified gallstones are present within the gallbladder. PANCREAS: Unremarkable. No ductal dilation. SPLEEN: The spleen is enlarged. ADRENALS: Unremarkable. No mass. KIDNEYS AND URETERS: No obstructing stones. No hydronephrosis. No perinephric fluid. STOMACH AND BOWEL: The stomach is distended with fluid and food contents. Small duodenal divertic ulum is noted without surrounding inflammation. The small bowel is otherwise normal in appearance. St ool is present throughout colon. There is no mucosal thickening or evidence of obstruction. PELVIS: APPENDIX: The appendix is normal in caliber without surrounding inflammation. BLADDER: Unremarkable. No stones. REPRODUCTIVE: Unremarkable as visualized. ABDOMEN and PELVIS: INTRAPERITONEAL SPACE: Large volume ascites is present throughout the abdomen and pelvis. No fr ee air. BONES/JOINTS: Minimal degenerative change of the lower lumbar spine is present. SOFT TISSUES: A large fluid containing umbilical hernia is present. Mild diffuse body wall ishmael a is present. Overlying gauze of the right lateral abdominal wall is present. There is no subcutane ous air within this region. No definite fluid tract is noted. VASCULATURE: Unremarkable. No abdominal aortic aneurysm. LYMPH NODES: Unremarkable. No enlarged lymph nodes. IMPRESSION: 1. Overlying gauze of the right lateral abdominal wall is present. There is no subcuta neous air within this region. No definite fluid tract is noted. 2. Cirrhotic liver, splenomegaly, and large volume ascites. 3. Moderate body wall edema with fluid along the anterior lower abdominal/pelvic wall. 4. Large fluid containing umbilical hernia. Electronically signed by: Marian Mcdonald MD 09/19/2022 12:42 AM CDT Due to temporary technical issues with the PACS/Fluency reporting system, reports are being signed by the in house radiologists without review as a courtesy to insure prompt reporting. The interpreting radiologist is fully responsible for the content of the report.
[2022-09-20 05:49] VITALS: BMI 26.4
[2022-09-20 08:22] LABS: Absolute Lymphocytes (CBC) 0.4 K/uL (0.7-4.9); Hematocrit 31.7 % (39.6-49.0); Lymphocytes % 13.8 % (15.3-44.8); MCV 85.1 fL (80-100); MPV 7.7 fL (7.6-11.3); RBC Red Blood Cell Count 3.72 M/uL (4.33-5.43)
[2022-09-20 08:44] LABS: Albumin 2.4 g/dL (3.4-5.0); Bilirubin Total 0.3 mg/dL (0.2-1.0); Potassium 4.8 mEq/L (3.5-5.1); Protein, Total 5.7 g/dL (6.4-8.2)
[2022-09-20] MEDS ORDERED: ALBUMIN HUMAN 25% 100 ML IV ONE (16:00)
--- NOTE | 2022-09-20 16:21 | RAD REPORT ---
EXAM DESCRIPTION: US - Paracentesis Proc Guidance - 09/20/2022 12:29 pm CLINICAL HISTORY: Ascites COMPARISON: Paracentesis Proc Guidance dated 09/17/2022 TECHNIQUE AND FINDINGS: Informed consent was obtained and time-out was performed. Patient's abdomen was prepped and draped in the usual sterile fashion. 1% lidocaine was used for loca l anesthetic purposes. A small skin incision was made. A paracentesis catheter was guided into the peroneal cavity under son ographic guidance. Mildly serosanguineous ascites was obtained. A small amount of fluid was sent for requested lab studi es. A large volume paracentesis was performed. The patient tolerated the procedure well. Patient was administered IV albumin per protocol following the procedure. IMPRESSION: Successful ultrasound-guided paracentesis.
[2022-09-20 16:25] VITALS: BP 128/71; TEMP 97.1
[2022-09-20 23:08] LABS: Appearance TURBID (CLEAR); Body Fluid Source PERITONEAL; Body Fluid WBC 205 /mm^3; Color of fluid Yellow (COLORLESS)
== END 2022-09-20 17:34 | disposition home or self-care (01) ==
LOC: ER 21:40 → ERHOLD 09-19 04:55 → 4TH 09-19 05:36
PROVIDERS: ADMIT Hospitalist; ATTEND Hospitalist
PROC: 0W9G3ZX Drainage of Peritoneal Cavity, Percutaneous Approach, Diagnostic (ICD-10-PCS; principal; 2022-09-20)
DX: K70.31 Alcoholic cirrhosis of liver with ascites (principal); N18.6 End stage renal disease; D63.1 Anemia in chronic kidney disease; Z99.2 Dependence on renal dialysis
CPT/HCPCS: 36415; 49083; 74176; 80053; 81003; 82042; 82945; 82947; 83615; 84157; 85025; 85610; 87070; 89050; 96374; 96375; 99284; J2001; J2405; P9047

== ENCOUNTER 2022-10-14 14:43 | Emergency (ER) | payer SELFPAY ==
--- OUTSIDE RECORDS SUMMARY | 2022-10-14 14:59 | XMS REPORT | Continuity of Care Document ---
:1955 Author Organization [facility] t Address [address] [place] [address] [address] [place] [address] Care Team Providers Name Role Phone SAIRA NAVARRETE Kobi Primary Care Physician Unavailable LEILA CHAPMAN Attending Clinician Unavailable MIKE COPPOLA Attending Clinician Unavailable Mike Pulido Attending Clinician Leila Chapman MD Attending Clinician Doctor Unassigned, [place] Attending Clinician Unavailable JOSÉ MIGUEL HUMPHRIES Attending [...] Clinician Unavailable Samuel Jennings MD Attending Clinician Rosalina JAVA WEB APPLICATION DEVELOPERJaqui Aragon Attending Clinician MAGNOLIA GIBBS Attending Clinician Unavailable Valeria CESAR, Magnolia Claros Attending Clinician Analia Fragoso LVN Attending Clinician [...] Policy Number Effective Date Expiration Date S [facility] [place] PENDING 2022 2022 PENDING 00:00:00 [...] alcoholic [place] cirrhosis 00 [facility] Branch Alcoholic Alcoholic Disease Active 2021-03 Uni vers cirrhosis cirrhosis 0-18 ity of of liver of liver 00:00: [place] with with 00 Medical ascites ascites Branch 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 liver 9-30 ity of 00:00: [place] 00 Medical Branch Tense Tense Disease Active Univers ascites ascites 9-30 ity of 00:00: [place] [facility] No known No known Disease Unive rs active active ity of problems problems [place] [facility] Allergies, Adverse Reactions, Alerts Allergy Allergy Status Severity Reaction(s) Onset Inactive Treating Comm ents Source Name Type Date Date Clinician NO KNOWN Drug Active Univers ALLERGIE Class ity of S [place] [facility] Social History Social Habit Start Date Stop Date Quantity Comments Source History SDOH Social Unive rsity of Connections [facility] Med ical Together Branch History SDOH Social Unive rsity of Connections [facility] Medical Branch History SDOH Social Unive rsity of Connections [place] [facility] Membership Branch History SDOH Social Unive rsity of Connections [place] [facility] Meetings Branch History of tobacco Cigarette Smoker University of use [facility] Branch Exposure to 2022-05-26 2022-06-05 Not sure University of SARS-CoV-2 (event) 00:00:00 06:46:00 [facility] Branch Alcohol intake 2022-06-05 2022-06-05 Current drinker Unive rsity of 00:00:00 00:00:00 of alcohol [place] [facility] (finding) Branch History SDOH 2022-04-11 2022-04-11 1 University o f Alcohol Frequency 00:00:00 00:00:00 [place] M edical [facility] History SDOH 2022-04-11 2022-04-11 0 University o f Alcohol Std Drinks 00:00:00 00:00:00 [place] [facility] History SDOH 2022-04-11 2022-04-11 1 University o f Alcohol Binge 00:00:00 00:00:00 [place] [facility] al [facility] History SDOH Social 2022-04-11 2022-04-11 5 Unive rsity of Connections Phone 00:00:00 00:00:00 [place] M edical [facility] History SDOH Social 2022-04-11 2022-04-11 6 Unive rsity of Connections Living 00:00:00 00:00:00 [place] [facility] History SDOH 2022-04-11 2022-04-11 0 University o f Physical Activity 00:00:00 00:00:00 [facility] edical DPW Branch History SDWI 2022-04-11 2022-04-11 0 University o f Physical Activity 00:00:00 00:00:00 [facility] edical MPS Branch History SDOH 2022-04-11 2022-04-11 5 University o f Financial 00:00:00 00:00:00 [place] [facility] History SDOH Food 2022-04-11 2022-04-11 1 Univers ity of Worry 00:00:00 00:00:00 [place] [facility] History SDOH Food 2022-04-11 2022-04-11 1 Univers ity of Scarcity 00:00:00 00:00:00 [place] [facility] History SDWI 2022-04-11 2022-04-11 2 University o f Transport Med 00:00:00 00:00:00 [place] [facility] History [facility] 2022-04-11 2022-04-11 2 University o f Transport Non-Med 00:00:00 00:00:00 [facility] Tobacco use and 2021-12-07 2021-12-07 Smokeless Universit y of exposure 00:00:00 00:00:00 tobacco non-user [facility] dical Branch Education 2021-12-07 2021-12-07 14 University of 00:00:00 00:00:00 [facility] [place] [facility] Tobacco Comment 2021-12-07 2021-12-07 Quit 3-4 years Unive rsity of 00:00:00 00:00:00 [facility] [place] [facility] Sex [birth year] At [birth year] Universit y of 00:00:00 00:00:00 [facility] [place] [facility] Smoking Status Start Date Stop Date Source Tobacco smoking [facility] [place] consumption unknown Medical Bran ch Ex-smoker 2021-12-07 00:00:00 2021-12-07 University o f [place] 00:00:00 Medical Branch Medications Ordered Filled Start [...] by ity of tablet 14:07: mouth in [place] [address] the Medical morning Branch and 1 tablet in the evening. pantoprazol 2023-0 Yes 40mg Take 1 Univ ers e 40 mg EC 3-30 tablet by ity of tablet 14:07: mouth in [place] [address] the Medical morning Branch and 1 tablet in the evening. pantoprazol 2023-0 Yes 40mg Take 1 Univ ers e 40 mg EC 3-30 tablet by ity of tablet 14:07: mouth in [place] [address] the Medical morning Branch and 1 tablet in the evening. furosemide 2023-0 Yes 40mg Take 1 Unive rs 40 mg 3-30 tablet by ity of tablet 00:00: mouth [place] 00 every Medical morning Branch and evening. lactulose 2023-0 Yes [id number] 30mL Take 30 mL Univers 10 gram/15 3-30 by mouth ity o f mL solution 00:00: in the [place] [facility] morning. Medical Branch sulfamethox 2023-0 Yes [id number] 1{tbl} Take 1 Univers azole-trime 3-30 tablet by ity of thoprim 00:00: mouth in [place] ([facility]) 00 the Medical 400-80 mg morning. Branch per tablet spironolact 2023-0 Yes 200mg Take 8 Uni vers one 25 mg 3-30 tablets by ity of tablet 00:00: mouth in [place] 00 the Medical morning. Branch furosemide 2023-0 Yes 40mg Take 1 Unive rs 40 mg 3-30 tablet by ity of tablet 00:00: mouth [place] 00 every Medical morning Branch and evening. lactulose 2023-0 Yes [id number] 30mL Take 30 mL Univers 10 gram/15 3-30 by mouth ity o f mL solution 00:00: in the [place] [facility] 00 morning. Medical Branch sulfamethox 2023-0 Yes [id number] 1{tbl} Take 1 Univers azole-trime 3-30 tablet by ity of thoprim 00:00: mouth in [place] ([facility]) 00 the Medical 400-80 mg morning. Branch per tablet spironolact 2023-0 Yes 200mg Take 8 Uni vers one 25 mg 3-30 tablets by ity of tablet 00:00: mouth in [place] 00 the Medical morning. Branch furosemide 2022-0 Yes 40mg Take 1 Unive rs 40 mg 3-30 tablet by ity of tablet 00:00: mouth [place] every Medical morning Branch and evening. lactulose 2022-0 Yes [id number] 30mL Take 30 mL Univers 10 gram/15 3-30 by mouth ity o f mL solution 00:00: in the morning. Medical Branch sulfamethox 2022-0 Yes [id number] 1{tbl} Take 1 Univers azole-trime 3-30 tablet by ity of thoprim 00:00: mouth in [place] ([facility]) 00 the Medical 400-80 mg morning. Branch per tablet spironolact 2022-0 Yes 200mg Take 8 Uni vers one 25 mg 3-30 tablets by ity of tablet 00:00: mouth in [place] 00 the Medical morning. Branch furosemide 2022-0 Yes 40mg Take 1 Unive rs 40 mg 3-30 tablet by ity of tablet 00:00: mouth [place] every Medical morning Branch and evening. lactulose 2022-0 Yes [id number] 30mL Take 30 mL Univers 10 gram/15 3-30 by mouth ity o f mL solution 00:00: in the morning. Medical Branch sulfamethox 2022-0 Yes [id number] 1{tbl} Take 1 Univers azole-trime 3-30 tablet by ity of thoprim 00:00: mouth in [place] ([facility]) 00 the Medical 400-80 mg morning. Branch per tablet spironolact 2022-0 Yes 200mg Take 8 Uni vers one 25 mg 3-30 tablets by ity of tablet 00:00: mouth in [place] 00 the Medical morning. Branch traMADoL 50 2022-0 Yes [id number] 50mg Take 1 Univ ers mg tablet 3-29 tablet by ity o f 00:00: mouth [place] 00 every 8 Medical (eight) Branch hours as needed for Pain (scale 1-3). Indication s: acute pain traMADoL 50 3-0 Yes [id number] 50mg Take 1 Univ ers mg tablet 3-29 tablet by ity o f 00:00: mouth [place] [address] every 8 Medical (eight) Branch hours as [...] 25g 25 g, IV Unive rs (ALBUMINAR 05-31-25 Infusion, ity of 25%) 25 % 22:08: 00:02 [place]CE, 1 [place] injection 00 :[place] dose, On Medica l 25 g Fri Branch 05/31/22 at 1715, 100 mL
Marge cation: HEPATORENA L SYNDROME (DIAGNOSIS )
Comme nts: Dosin-8 g/L of ascitic fluid removed lactulose Yes 30mL Take 30 mL Univers 10 gram/15 3-24 by mouth ity o f mL oral 00:00: in the [place] solution 00 morning. Medical Branch lactulose 0 Yes [id number] 30mL Take 30 mL Univers 10 gram/15 3-24 by mouth ity o f mL oral 00:00: in the [place] solution 00 morning. Medical Branch lactulose 0 Yes [id number] 30mL Take 30 mL Univers 10 gram/15 3-24 by mouth ity o f mL oral 00:00: in the [place] solution 00 morning. Medical Branch lactulose 2022-0 2022- No [id number] 30mL Take 30 mL Univers 10 gram/15 3-24 03-30 by mouth ity of mL oral 00:00: 00:00 in the [place] solution 00 :00 morning. Medical Branch lactulose 2022-0 2022- No [id number] 30mL Take 30 mL Univers 10 gram/15 05-3130 by mouth ity of mL oral 00:00: 00:00 in the [place] solution 00 :00 morning. Medical Branch lactulose 2022-0 2022- No [id number] 30mL Take 30 mL Univers 10 gram/15 05-3130 by mouth ity of mL oral 00:00: 00:00 in the [place] [facility] 00 :00 morning. Medical Branch pantoprazol 2022-0 Yes 40mg Take 40 mg Univers e 40 mg EC 2-02 by mouth ity o f tablet 17:45: in the [place] [address] morning Medical and 40 mg Branch in the evening. pantoprazol 3-0 Yes 40mg Take 40 mg Univers e 40 mg EC 2-02 by mouth ity o f tablet 17:45: in the [place] [address] morning Medical and 40 mg Branch in the evening. pantoprazol 3-0 Yes 40mg Take 40 mg Univers e 40 mg EC 2-02 by mouth ity o f tablet 17:45: in the [place] [address] morning Medical and 40 mg Branch in the evening. pantoprazol 3-0 Yes 40mg Take 40 mg Univers e 40 mg EC 2-02 by mouth ity o f tablet 17:45: in the [place] [address] morning Medical and 40 mg Branch in [...] mouth ity of tablet 15:02: 00:00 every [place] 42 :00 morning Medical and Branch evening. spironolact 2022- No 25mg Take 25 mg Univers one 04-11 by mouth ity of (ALDACTONE) 15:02: 00:00 in the [place] [facility] as 25 mg 42 :00 [...] 14:00: [place] EC tablet Fri Medical 40 mg 04/11/22 at Branch 0800, Until Discontinu ed, Routine acetaminoph Yes 650mg 650 mg, Un piedad en 04-11 Oral, ity of (TYLENOL) 02:53: Q6HPRN, [place] tablet 650 20 Starting Medic al mg on Fri04/10/22 at 2052, Until Discontinu ed, Routine, Pain (scale 1-3) sulfamethox 2022- No [id number] 1{tbl} Take 1 Univers azole-trime 04-11 03 tablet by i ty of thoprim 00:00: 05:59 mouth in [place] ([facility] 00 :00 the Medical DS) 800-160 morning Branc h mg per for 30 tablet days. furosemide 2022-0 2022- No [id number] 40mg Take 1 Univers 40 mg 04-11 tablet by ity of tablet 00:00: 05:59 mouth [place] 00 :00 every Medical morning Branch and evening for 30 days. spironolact 2022-0 2022- No [id number] 200mg Take 2 Univers one 04-11 [id number] tablets by ity of (ALDACTONE) 00:00: 05:59 [place] 100 mg 00 :00 the Medical tablet morning Branch for 30 days. furosemide 2022-0 3- No 40mg Take 1 Univ ers 40 mg 03-20 tablet by ity of tablet 00:00: 00:00 mouth. [place] 00 :00 Medical Branch spironolact 2022-0 2023- No 25mg Take 1 Uni vers one 25 mg 03-20 tablet by ity of tablet 00:00: 00:00 mouth. [place] 00 :00 Medical Branch furosemide 2022-0 3- No 40mg Take 1 Univ ers 40 mg 03-2030 tablet by ity of tablet 00:00: 00:00 mouth. [place] 00 :00 Medical Branch spironolact 3-0 3- No 25mg Take 1 Uni vers one 25 mg 03-20 tablet by ity of tablet 00:00: 00:00 mouth. [place] 00 :00 Medical Branch furosemide 2022-0 3- No 40mg Take 1 Univ ers 40 mg 03-20 tablet by ity of tablet 00:00: 00:00 mouth. [place] 00 :00 Medical Branch spironolact 2022-0 3- No 25mg Take 1 Uni vers one 25 mg 03-2030 tablet by ity of tablet 00:00: 00:00 mouth. [place] 00 :00 Medical Branch furosemide 2021- Yes 40mg Take 40 mg U nivers 40 mg 0-21 by mouth ity of tablet 13:09: every [place] [address] morning Medical and Branch evening. furosemide 2021- Yes 40mg Take 40 mg U nivers 40 mg 0-21 by mouth ity of tablet 13:09: every [place] [address] morning Medical and Branch evening. furosemide 2021- Yes 40mg Take 40 mg U nivers 40 mg 0-21 by mouth ity of tablet 13:09: every [place] [address] morning Medical and Branch evening. furosemide 2021-1 Yes 40mg Take 40 mg U nivers 40 mg 0-21 by mouth ity of tablet 13:09: every [place] [address] morning Medical and Branch evening. furosemide 2021- Yes 40mg Take 40 mg U nivers 40 mg 0-21 by mouth ity of tablet 13:09: every [place] [address] morning Medical and Branch evening. furosemide 2021- Yes 40mg Take 40 mg U nivers 40 mg 0-21 by mouth ity of tablet 13:09: every [place] [address] morning Medical and Branch evening. furosemide 2021- Yes 40mg Take 40 mg U nivers 40 mg 0-21 by mouth ity of tablet 13:09: every [place] [address] morning Medical and Branch evening. furosemide 2021- Yes 40mg Take 40 mg U nivers 40 mg 0-21 by mouth ity of tablet 13:09: every [place] [address] morning Medical and Branch evening. furosemide 2021- Yes 40mg Take 40 mg U nivers 40 mg 0-21 by mouth ity of tablet 13:09: every [place] [address] morning Medical and Branch evening. furosemide 2021- Yes 40mg Take 40 mg U nivers 40 mg 0-21 by mouth ity of tablet 13:09: every [place] [address] morning Medical and Branch evening. furosemide 2021- Yes 40mg Take 40 mg U nivers 40 mg 0-21 by mouth ity of tablet 13:09: every [place] [address] morning Medical and Branch evening. pantoprazol 2021- Yes 40mg Take 40 mg Univers e 40 mg EC 0-21 by mouth ity o f tablet 13:09: in the [place] [address] morning Medical and 40 mg Branch in the evening. pantoprazol 2021-1 Yes 40mg Take 40 mg Univers e 40 mg EC 0-21 by mouth ity o f tablet 13:09: in the [place] [address] morning Medical and 40 mg Branch in the evening. pantoprazol 2021-1 Yes 40mg Take 40 mg Univers e 40 mg EC 0-21 by mouth ity o f tablet 13:09: in the [place] [address] morning Medical and 40 mg Branch in the evening. pantoprazol 2021-1 Yes 40mg Take 40 mg Univers e 40 mg EC 0-21 by mouth ity o f tablet 13:09: in the [place] [address] morning Medical and 40 mg Branch in the evening. pantoprazol 2021-03 Yes 40mg Take 40 mg Univers e 40 mg EC 0-21 by mouth ity o f tablet 13:09: in the [place] [address] morning Medical and 40 mg Branch in the evening. pantoprazol 2021-03 Yes 40mg Take 40 mg Univers e 40 mg EC 0-21 by mouth ity o f tablet 13:09: in the [place] [address] morning Medical and 40 mg Branch in the evening. pantoprazol 2021-03 Yes 40mg Take 40 mg Univers e 40 mg EC 0-21 by mouth ity o f tablet 13:09: in the [place] [address] morning Medical and 40 mg Branch in the evening. pantoprazol 2021-03 Yes 40mg Take 40 mg Univers e 40 mg EC 0-21 by mouth ity o f tablet 13:09: in the [place] [address] morning Medical and 40 mg Branch in the evening. pantoprazol 2021-03 Yes 40mg Take 40 mg Univers e 40 mg EC 0-21 by mouth ity o f tablet 13:09: in the [place] [address] morning Medical and 40 mg Branch in the evening. pantoprazol 2021-03 Yes 40mg Take 40 mg Univers e 40 mg EC 0-21 by mouth ity o f tablet 13:09: in the [place] [address] morning Medical and 40 mg Branch in the evening. pantoprazol 2021-03 Yes 40mg Take 40 mg Univers e 40 mg EC 0-21 by mouth ity o f tablet 13:09: in the [place] [address] morning Medical and 40 mg Branch in the evening. albumin 2021-03 202- No [id number] 50g 50 g, IV Univers (ALBUMINAR 0-21 [...] 00 First dose Med ical mg on [facility] Branch 12/26/21 at 0900, Until Discontinu ed, Routine docusate 2021-03 Yes 100mg 100 mg, Unive rs (COLACE) 0-19 Oral, BID, ity o f capsule 100 01:00: First dose [place] mg 00 on [facility] 12/25/21 Branch at 2000, Until [...] First dose Medical (HumaLOG) + on Fri [facility] 12/25/21 Testing at 1700, Until Discontinu ed, Routine enoxaparin 2021-03 Yes 30mg 30 mg, Unive rs (LOVENOX) 0-18 Subcutaneo ity of injection 22:00: [place], [place]ILY, [place] 30 mg 00 First dose Medical on [facility] Branch 12/25/21 at 1700, Until Discontinu ed, Routine glucagon 2021-03 Yes 1mg 1 mg, Univers (GLUCAGEN 0-18 Intramuscu ity of DIAGNOSTIC 21:33: [place], PRN, [place] KIT) 19 Starting Medical injection 1 on [place] mg 12/25/21 at 1633, Until Discontinu ed, NAYAN, Blood Glucose < or = 70 mg/dL and patient is unable to swallow or has mental changes. dextrose 50 2021-03 Yes 25mL 25 mL, Univ ers % in water 0-18 Slow IV ity of (D50W) 21:33: Push, PRN, [place] injection 19 Starting Medica l 25 mL on [place] 12/25/21 at 1633, Until Discontinu ed, NAYAN, Blood Glucose < or = 70 mg/dL and patient is unable to swallow or has mental status changes. ondansetron 2021-03 Yes 4mg 4 mg, Slow Univers (ZOFRAN 0-18 IV Push, ity of (PF)) 21:33: Q6HPRN, [place] injection 4 11 Starting Medi rosario mg on [facility] Branch 12/25/21 at 1633, Until Discontinu ed, Routine, Nausea and Vomiting (N/V) acetaminoph 2021-03 Yes 650mg 650 mg, Un piedad en 0-18 Oral, ity of (TYLENOL) 21:32: Q6HPRN, [place] tablet 650 53 Starting Medic al mg on [facility] Branch 12/25/21 at 1632, Until Discontinu ed, Routine, Pain (scale 1-3) pantoprazol 2021-03 Yes 40mg Take 40 mg Univers e 40 mg EC 0-02 by mouth ity o f tablet 16:36: in the [place] 06 morning Medical and 40 mg Branch in the evening. furosemide 2021-03 Yes 40mg Take 40 mg U nivers 40 mg 0-02 by mouth ity of tablet 16:36: every [place] [address] morning Medical and Branch evening. pantoprazol 2021-03 Yes 40mg Take 40 mg Univers e 40 mg EC 0-02 by mouth ity o f tablet 16:36: in the [place] [address] morning Medical and 40 mg Branch in the evening. furosemide 2021-03 Yes 40mg Take 40 mg U nivers 40 mg 0-02 by mouth ity of tablet 16:36: every [place] [address] morning Medical and Branch evening. spironolact 2021-03- No 25mg Take 25 mg Univers one 25 mg 0-02 1002 by mouth ity o f tablet 13:32: 00:00 in the [place] 31 :00 morning Medical and 25 mg Branch in the evening. spironolact 2021-03- No [id number] 25mg Take 1 Univers one 25 mg 0-02 11-02 tablet by ity of tablet 00:00: 04:59 mouth in [place] 00 :00 the Medical morning Branch for 30 days. spironolact 2021-03- No [id number] 25mg Take 1 Univers one 25 mg 0-02 11-02 tablet by ity of tablet 00:00: 04:59 mouth in [place] 00 :00 the Medical morning Branch for 30 days. spironolact 2021-03- No [id number] 25mg Take 1 Univers one 25 mg 0-02 11-02 tablet by ity of tablet 00:00: 04:59 mouth in [place] 00 :00 [facility] for 30 days. spironolact 2021-03- No [id number] 25mg Take 1 Univers one 25 mg 001-09 tablet by ity of tablet 00:00: 04:59 mouth in [place] 00 :00 [facility] for 30 days. midodrine 2021-03 Yes 5mg 5 mg, Univers (PROAMATINE 0-01 Oral, TID, it y of ) tablet 5 19:00: First dose [place] mg 00 on [facility] 12/08/21 at Branch 1400, Until Discontinu ed, Routine foLIC acid 2021-03- No 1mg 1 mg, Unive rs (FOLATE) 0-12-08 Oral, ity of tablet 1 mg 16:15: 17:09 ONCE, 1 [place] 00 :00 dose, On [facility] 12/08/21 at 1115, Routine thiamine 2021-03 Yes 100mg 100 mg, Unive rs (VITAMIN 0- Oral, ity of B1) tablet 15:30: DAILY, [place] 100 mg 00 First dose Medical on [facility] 12/08/21 at 1030, Until Discontinu ed, Routine furosemide 2021-03 Yes 40mg 40 mg, Unive rs (LASIX) 0- Oral, ity of tablet 40 14:00: DAILY, [place] mg 00 First dose Medical on [facility] 12/08/21 at 0900, Until Discontinu ed, Routine spironolact 2021-03- No 100mg 100 mg, U nivers one 0-12-08 Oral, ity of (ALDACTONE) 14:00: 15:45 DAILY, [place] tablet 100 00 :15 First dose Med ical mg on [facility] 12/08/21 at 0900, Until Discontinu ed, Routine traMADoL 2021-03 Yes 50mg 50 mg, Univers (ULTRAM) 0-01 Oral, ity of tablet 50 10:49: Q6HPRN, [place] mg 22 Starting Medical on [facility] 12/08/21 at 0549, Until Discontinu ed, [...] Until Discontinu ed, Routine albumin 2021- No [id number] 25g 25 g, IV Univers (ALBUMINAR 12-07 Infusion, ity of 25%) 25 % 20:15: 02:01 [place]CE, [place] injection [place] :[place] dose, On Medica l 25 g Fri Branch 12/07/21 at 1515, 100 mL
Marge cation: HEPATORENA L SYNDROME (DIAGNOSIS )
Comme nts: Dosin-8 g/L of ascitic fluid removed furosemide 2021- No [id number] 40mg 40 mg, Univers (LASIX) 12-07 Slow [...] 9-16 medication it y of 13:38: s [address] No known No No known Unive rs medications 8-11 medication it y of 11:47: s [address] No known No No known Unive rs medications 8-11 medication it y of 11:47: [address] No known No No known Unive rs medications 8-11 medication it y of 11:47: [address] Vital Signs Vital Name Observation Time Observation Value Comments Source Systolic blood 2022-08-12 16:30:00 124 mm[Hg] Univer sity of pressure [place] [facility] Diastolic blood 2022-08-12 16:30:00 67 mm[Hg] Unive rsity of pressure [place] [facility] Heart rate 2022-08-12 16:30:00 66 /min Universi ty of [place] [facility] Respiratory rate 2022-08-12 16:30:00 17 /min Univ ersity of [place] [facility] Oxygen saturation in 2022-08-12 16:30:00 99 /min University of Arterial blood by [place] [employer] rosario Pulse oximetry Branch Body temperature 2022-08-12 15:05:00 37 Shabnam Univ ersity of [place] [facility] Body weight 2022-08-12 15:05:00 80.287 kg Universi ty of [place] [facility] BMI 2022-08-12 15:05:00 26.91 kg/m2 Universi ty of [place] [facility] Systolic blood 2022-06-06 19:06:00 120 mm[Hg] Univer sity of pressure [place] [facility] Diastolic blood 2022-06-06 19:06:00 79 mm[Hg] Unive rsity of pressure [place] [facility] Heart rate 2022-06-06 19:06:00 78 /min Universi ty of [place] [facility] Body temperature 2022-06-06 19:06:00 36.17 Shabnam Univ ersity of [place] [facility] Body height 2022-06-06 19:06:00 172.7 cm Universi ty of [place] [facility] Body weight 2022-06-06 19:06:00 80.513 kg Universi ty of [place] [facility] BMI 2022-06-06 19:06:00 26.99 kg/m2 Universi ty of [place] [facility] Oxygen saturation in 2022-06-06 19:06:00 99 /min University of Arterial blood by [place] [employer] rosario Pulse oximetry Branch Systolic blood 2022-06-05 14:00:00 125 mm[Hg] Univer sity of pressure [place] [facility] Diastolic blood 2022-06-05 14:00:00 74 mm[Hg] Unive rsity of pressure [place] [facility] Heart rate 2022-06-05 14:00:00 80 /min Universi ty of [place] [facility] Respiratory rate 2022-06-05 14:00:00 18 /min Univ ersity of [place] [facility] Oxygen saturation in 2022-06-05 14:00:00 99 /min University of Arterial blood by [facility] rosario Pulse oximetry Branch Body temperature 2022-06-05 11:46:00 35.72 Shabnam Univ ersity of [place] [facility] Body weight 2022-06-05 11:46:00 85.276 kg Universi ty of [place] [facility] BMI 2022-06-05 11:46:00 28.59 kg/m2 Universi ty of [place] [facility] Systolic blood 2022-06-01 00:00:00 140 mm[Hg] Univer sity of pressure [place] [facility] Diastolic blood 2022-06-01 00:00:00 99 mm[Hg] Unive rsity of pressure [place] [facility] Heart rate 2022-06-01 00:00:00 74 /min Universi ty of [place] [facility] Respiratory rate 2022-06-01 00:00:00 18 /min Univ ersity of [place] [facility] Oxygen saturation in 2022-06-01 00:00:00 100 /min University of Arterial blood by [facility] Pulse oximetry Branch Body temperature 2022-05-31 18:57:45 36.33 Shabnam Univ ersity of [place] [facility] Body weight 2022-05-31 18:43:00 85.276 kg Universi ty of [place] [facility] BMI 2022-05-31 18:43:00 28.59 kg/m2 Universi ty of [place] [facility] Systolic blood 2022-04-11 22:07:00 156 mm[Hg] Univer sity of pressure [place] [facility] Diastolic blood 2022-04-11 22:07:00 94 mm[Hg] Unive rsity of pressure [place] [facility] Heart rate 2022-04-11 22:07:00 78 /min Universi ty of [place] [facility] Body temperature 2022-04-11 22:07:00 36.39 Shabnam Univ ersity of [place] [facility] Respiratory rate 2022-04-11 22:07:00 19 /min Univ ersity of [place] [facility] Oxygen saturation in 2022-04-11 22:07:00 100 /min University of Arterial blood by [facility] Pulse oximetry Branch Body height 2022-04-11 02:52:00 172.7 cm [facility] Body weight 2022-04-11 02:52:00 88.451 kg [facility] BMI 2022-04-11 02:52:00 29.65 kg/m2 [facility] Systolic blood 2022-03-27 21:30:00 140 mm[Hg] [facility] [place] [facility] Diastolic blood 2022-03-27 21:30:00 83 mm[Hg] [facility] [place] [facility] Heart rate 2022-03-27 21:30:00 68 /min [facility] Respiratory rate 2022-03-27 21:30:00 13 /min [facility] [place] [facility] Oxygen saturation in 2022-03-27 21:30:00 100 /min [facility] blood [facility] Body temperature 2022-03-27 18:33:00 36.89 Shabnam [facility] Body height 2022-03-27 18:33:00 172.7 cm [facility] Body weight 2022-03-27 18:33:00 88.451 kg [facility] BMI 2022-03-27 18:33:00 29.65 kg/m2 [facility] Body weight 2022-03-12 17:50:00 87.544 kg [facility] BMI 2022-03-12 17:50:00 29.35 kg/m2 [facility] Systolic blood 2022-03-12 17:39:00 130 mm[Hg] [facility] Diastolic blood 2022-03-12 17:39:00 83 mm[Hg] [facility] Heart rate 2022-03-12 17:39:00 71 /min [facility] Body temperature 2022-03-12 17:39:00 36.61 Shabnam [facility] [place] [facility] Respiratory rate 2022-03-12 17:39:00 22 /min [facility] Body height 2022-03-12 17:39:00 172.7 cm [facility] Oxygen saturation in 2022-03-12 17:39:00 100 /min [facility] blood [facility] [place] [facility] Systolic blood 2022-02-27 22:01:00 153 mm[Hg] [facility] [place] [facility] Diastolic blood 2022-02-27 22:01:00 85 mm[Hg] [facility] Heart rate 2022-02-27 22:01:00 81 /min [facility] Respiratory rate 2022-02-27 22:01:00 16 /min [facility] Oxygen saturation in 2022-02-27 21:26:00 95 /min [facility] Arterial blood by [place] [employer] [facility] Pulse oximetry Branch Body temperature 2022-02-27 [...] 99 /min [facility] [place] [employer] [facility] Pulse oximetry Branch Body temperature 2022-02-13 [...] 100 /min [facility] [place] [employer] [facility] Pulse oximetry Branch Body temperature 2022-01-30 16:57:00 36.61 Shabnam [facility] [place] [facility] Body height 2022-01-30 16:57:00 170.2 cm [facility] Body weight 2022-01-30 16:57:00 86.183 kg [facility] BMI 2022-01-30 16:57:00 29.76 kg/m2 [facility] Systolic blood 2022-01-16 19:31:00 140 mm[Hg] [facility] [place] [facility] Diastolic blood 2022-01-16 19:31:00 82 mm[Hg] [facility] [place] [facility] Heart rate 2022-01-16 19:31:00 79 /min [facility] Respiratory rate 2022-01-16 19:31:00 18 /min [facility] [place] [facility] Oxygen saturation in 2022-01-16 19:31:00 99 /min [facility] Arterial blood by [facility] Pulse oximetry Branch Body weight 2022-01-16 17:42:00 85.276 kg [facility] BMI 2022-01-16 17:42:00 29.44 kg/m2 [facility] Body temperature 2022-01-16 17:41:00 36.83 Shabnam [facility] [place] [facility] Systolic blood 2022 02:00:00 148 mm[Hg] [facility] [place] [facility] Diastolic blood 2022 02:00:00 83 mm[Hg] [facility] [place] [facility] Heart rate 2022 02:00:00 79 /min [facility] Respiratory rate 2022 02:00:00 20 /min [facility] [place] [facility] Oxygen saturation in 2022 02:00:00 98 /min [facility] by [place] [employer] [facility] Pulse oximetry Branch Body weight 2022-01-12 23:58:00 72.576 kg [facility] BMI 2022-01-12 23:58:00 25.06 kg/m2 [facility] Systolic blood 2022-01-12 20:14:00 139 mm[Hg] [facility] [place] [facility] Diastolic blood 2022-01-12 20:14:00 93 mm[Hg] [facility] Heart rate 2022-01-12 20:14:00 91 /min [facility] Respiratory rate 2022-01-12 20:14:00 18 /min [facility] [place] [facility] Body height 2022-01-12 20:14:00 170.2 cm [facility] Body weight 2022-01-12 20:14:00 72.576 kg [facility] BMI 2022-01-12 20:14:00 25.06 kg/m2 [facility] Oxygen saturation in 2022-01-12 20:14:00 99 /min [facility] blood by [place] [employer] [facility] Pulse oximetry Branch Systolic blood 2021-12-28 16:22:00 116 mm[Hg] [facility] [place] [facility] Diastolic blood 2021-12-28 16:22:00 76 mm[Hg] [facility] [place] [facility] Heart rate 2021-12-28 16:22:00 78 /min [facility] Body temperature 2021-12-28 16:22:00 35.78 Shabnam [facility] [place] [facility] Oxygen saturation in 2021-12-28 16:22:00 100 /min [facility] blood by [place] [employer] [facility] Pulse oximetry Branch Respiratory rate 2021-12-28 12:52:00 18 /min [facility] [place] [facility] Body weight 2021-12-28 08:15:00 75.978 kg [facility] BMI 2021-12-28 08:15:00 25.47 kg/m2 [facility] Body height 2021-12-25 22:02:00 172.7 cm [facility] Systolic blood 2021-12-14 19:55:00 120 mm[Hg] [facility] Diastolic blood 2021-12-14 19:55:00 94 mm[Hg] [facility] Heart rate 2021-12-14 19:55:00 93 /min [facility] Body temperature 2021-12-14 19:55:00 36.56 Shabnam [facility] [place] [facility] Respiratory rate 2021-12-14 19:55:00 16 /min [facility] Body height 2021-12-14 19:55:00 172.7 cm [facility] Body weight 2021-12-14 19:55:00 81.647 kg [facility] BMI 2021-12-14 19:55:00 27.37 kg/m2 [facility] Oxygen saturation in 2021-12-14 19:55:00 100 /min [facility] [place] [facility] Systolic blood 2021-12-09 16:13:00 139 mm[Hg] [facility] [place] [facility] Diastolic blood 2021-12-09 16:13:00 88 mm[Hg] [facility] [place] [facility] Heart rate 2021-12-09 16:13:00 77 /min [facility] Body temperature 2021-12-09 16:13:00 36.06 Shabnam [facility] [place] [facility] Respiratory rate 2021-12-09 16:13:00 18 /min [facility] [place] [facility] Oxygen saturation in 2021-12-09 16:13:00 95 /min [facility] [place] [facility] Body weight 2021-12-09 08:54:00 78.971 kg [facility] BMI 2021-12-09 08:54:00 26.47 kg/m2 [facility] Systolic blood 2021-11-23 19:30:00 140 mm[Hg] [facility] [place] [facility] Diastolic blood 2021-11-23 19:30:00 83 mm[Hg] [facility] [place] [facility] Heart rate 2021-11-23 19:30:00 79 /min [facility] Oxygen saturation in 2021-11-23 19:30:00 100 /min [facility] [place] [facility] Body temperature 2021-11-23 18:42:00 36.44 Shabnam [facility] [place] [facility] Respiratory rate 2021-11-23 18:39:00 20 /min [facility] [place] [facility] Body height 2021-11-23 18:39:00 172.7 cm [facility] Body weight 2021-11-23 18:39:00 83.598 kg [facility] BMI 2021-11-23 18:39:00 28.02 kg/m2 [facility] Systolic blood 2021-11-09 21:10:00 169 mm[Hg] [facility] [place] [facility] Diastolic blood 2021-11-09 21:10:00 80 mm[Hg] [facility] [place] [facility] Heart rate 2021-11-09 21:10:00 85 /min [facility] Respiratory rate 2021-11-09 21:10:00 16 /min [facility] Oxygen saturation in 2021-11-09 21:10:00 94 /min [facility] Arterial blood by [employer] Pulse oximetry Branch Body temperature 2021-11-09 19:49:00 36.83 Shabnam [facility] Body height 2021-11-09 19:49:00 172.7 cm [facility] Body weight 2021-11-09 19:49:00 90.719 kg [facility] BMI 2021-11-09 19:49:00 30.41 kg/m2 [facility] Systolic blood 2021-10-18 15:17:00 149 mm[Hg] [facility] [place] [facility] Diastolic blood 2021-10-18 15:17:00 79 mm[Hg] [facility] [place] [facility] Heart rate 2021-10-18 15:17:00 77 /min [facility] Body temperature 2021-10-18 15:17:00 36.61 Shabnam [facility] Respiratory rate 2021-10-18 15:17:00 16 /min [facility] [place] [facility] Body weight 2021-10-18 15:17:00 90.719 kg [facility] Oxygen saturation in 2021-10-18 15:17:00 98 /min [facility] Arterial blood by [employer] Pulse oximetry Branch Procedures Procedure Date / Time Performing Clinician Source Performed CA ABDOM PARACENTESIS 2022-08-12 16:58:16 Kev Nguyen [facility] DX/THER W/IMAGING [facility] GUIDANCE XR CHEST 1 VW 2022-08-12 15:57:01 Abdon [facility] LIPASE 2022-08-12 15:28:00 Abdon [facility] COMP. METABOLIC PANEL 2022-08-12 15:28:00 Abdon [facility] ([id number]) [facility] CBC WITH DIFF 2022-08-12 15:28:00 Abdon [facility] PROTHROMBIN TIME / INR 2022-08-12 15:28:00 [facility] CONSENT/REFUSAL FOR 2022-08-12 15:02:09 Doctor Unassigned, No [facility] DIAGNOSIS AND TREATMENT [facility] ASSIGNMENT OF BENEFITS 2022-06-06 18:38:18 Doctor Unassigned, No [facility] LIPASE 2022-06-05 13:17:00 Kristel [facility] HEPATIC FUNCTION PANEL 2022-06-05 13:17:[address] [facility] ([id number]) (ALB,T.PRO,BILI [facility] T,BU/BC,ALT,AST,ALK PHOS) BASIC METABOLIC PANEL 2022-06-05 13:17:00 Kristel [facility] (NA, K, CL, CO2, Medical Branch GLUCOSE, BUN, CREATININE, CA) CBC WITH DIFF 2022-06-05 13:17:00 Kristel [facility] PROTHROMBIN TIME / INR 2022-06-05 13:17:00 [facility] ACTIVATED PARTIAL 2022-06-05 13:17:00 [facility] THRMPLAS [facility] CONSENT/REFUSAL FOR 2022-06-05 11:43:52 Doctor Unassigned, No [facility] DIAGNOSIS AND TREATMENT [facility] BODY FLUID DIRECT COUNT 2022-05-31 23:03:00 [facility] 2022-05-31 21:22:00 Onur Jeremias [facility] ([id number]) (ALB,T.PRO,BILI [facility] T,BU/BC,ALT,AST,ALK PHOS) CBC WITH DIFF 2022-05-31 19:08:00 [facility]OLIC PANEL 2022-05-31 19:00:00 Onur [facility] (NA, K, CL, CO2, [facility] GLUCOSE, BUN, CREATININE, CA) PROTHROMBIN TIME / INR 2022-05-31 19:00:00 Onur Jeremias [facility] CONSENT/REFUSAL FOR 2022-05-31 18:40:37 Doctor Unassigned, No Un [facility] DIAGNOSIS AND TREATMENT Name [facility] BASIC METABOLIC PANEL 2022-04-11 22:15:00 Rievra Stinson [facility] (NA, K, CL, CO2, [facility] GLUCOSE, BUN, CREATININE, CA) BLOOD CULTURE SCREEN 2022-04-11 16:47:00 Rivera Stinson [facility] MAGNESIUM 2022-04-11 09:39:00 Edward [facility] COMP. METABOLIC PANEL 2022-04-11 09:39:00 Eddie Doyle [facility] ([id number]) [facility] CBC WITH DIFF 2022-04-11 09:39:00 Edward [facility] HCV ANTIBODY 2022-04-11 09:39:00 Edward [facility] HEPATITIS C VIRUS (HCV) 2022-04-11 09:39:00 [facility]AT[facility] NAAT Medical [facility] T.PROTEIN BODY FLUID 2022-04-11 06:15:00 Eddie Doyle [facility] BODY FLUID DIRECT COUNT 2022-04-11 06:15:00 Eddie Doyle [facility] BODY FLUID (BACTEC 2022-04-11 06:15:00 Geeta Young [facility] BOTTLE) Medical Branch COMP. METABOLIC PANEL 2022-04-10 21:26:00 Bucky Gloria [facility] ([id number]) Medical Branch CBC WITH DIFF 2022-04-10 21:26:00 Bucky Gloria [place] [facility] GLYCOSYLATED HEMOGLOBIN 2022-04-10 21:26:00 Jessica Leon [facility] (A1C) Medical Branch PROTHROMBIN TIME / INR 2022-04-10 21:26:00 Bucky Gloria [facility] ACTIVATED PARTIAL 2022-04-10 21:26:00 Bucky Gloria [facility] THRMPLAS SADE [facility] CONSENT/REFUSAL FOR 2022-04-10 19:58:33 Doctor Unassigned, No [facility] [place] [facility] Name [facility] [place] [facility] ADMISSION 2022-04-10 06:01:00 Doctor Unassigned, No Uni versity [facility] CA ABDOM PARACENTESIS 2022-03-27 20:57:39 Gini [facility] DX/THER W/IMAGING Medical Branch GUIDANCE COMP. METABOLIC PANEL 2022-03-27 18:56:00 Gini [facility] ([id number]) [facility] CBC WITH DIFF 2022-03-27 18:56:00 Gini [facility] PROTHROMBIN TIME / INR 2022-03-27 18:56:00 Gini [facility] CA ABDOM PARACENTESIS 2022-03-12 18:32:33 Kev [facility] DX/THER W IMAGING Medical Branch GUIDANCE CONSENT/REFUSAL FOR 2022-03-12 17:29:10 Doctor Unassigned, No [facility] [place] DIAGNOSIS AND TREATMENT [facility] Medical Branch CA ABDOM PARACENTESIS 2022-02-27 21:29:57 Kev Nguyen [facility] DX/THER W IMAGING Medical Branch GUIDANCE CONSENT/REFUSAL FOR 2022-02-27 21:02:37 Doctor Unassigned, No [facility] [place] DIAGNOSIS AND TREATMENT [facility] Medical Branch CA ABDOM PARACENTESIS 2022-02-13 21:42:20 Kev Nguyen [facility] DX/THER W IMAGING Medical [facility] GUIDANCE CONSENT/REFUSAL FOR 2022-02-13 21:08:22 Doctor Unassigned, No [facility] [place] [facility] Name Medical Branch CA ABDOM PARACENTESIS 2022-01-30 19:16:37 Kev Nguyen [facility] DX/THER W IMAGING [facility] GUIDANCE CONSENT/REFUSAL FOR 2022-01-30 16:51:04 Doctor Unassigned, No [facility] [place] [facility] TREAT[facility] Name Medical Branch CA ABDOM PARACENTESIS 2022-01-16 19:17:58 Kev Nguyen [facility] DX/THER W IMAGING [facility] GUIDANCE CONSENT/REFUSAL FOR 2022-01-16 17:29:44 Doctor Unassigned, No [facility] [place] [facility] Name [facility] XR CHEST 1 VW 2022 01:47:22 Jaqui Romano [facility] COMP. METABOLIC PANEL 2022 01:19:00 Jaqui Romano [facility] ([id number]) [facility] CBC WITH DIFF 2022 01:19:00 Jaqui Romano [facility] PROTHROMBIN TIME / INR 2022 01:19:00 Jaqui Romano [facility] ACTIVATED PARTIAL 2022 01:19:00 Jaqui Romano [facility] CONSENT/REFUSAL FOR 2022-01-12 22:44:32 Doctor Unassigned, No [facility] [place] DIAGNOSIS AND TREATMENT Name [facility] CONSENT/REFUSAL FOR 2022-01-12 20:00:19 Doctor Unassigned, No [facility] [place] DIAG[facility]IS [facility] TREATMENT Name [facility] POCT GLUCOSE (AUTOMATED) 2021-12-28 12:54:[address] [facility] BASIC METABOLIC PANEL 2021-12-28 08:19:00 Danielle Roth[facility] [place] (NA, K, CL, CO2, [facility] GLUCOSE, BUN, CREATININE, CA) CBC WITH DIFF 2021-12-28 08:19:00 Danielle Rothman [facility] BODY FLUID DIRECT COUNT 2021-12-28 01:21:00 Kimmie Flynn [facility] BODY FLUID 2021-12-28 01:21:00 Gee, [facility] [place] CULTURE(AEROBIC/ANAEROBI [facility] [place] C) POCT GLUCOSE (AUTOMATED) 2021-12-28 00:42:[address] [facility] POCT GLUCOSE (AUTOMATED) 2021-12-27 21:53:[address] [facility] POCT GLUCOSE (AUTOMATED) 2021-12-27 16:33:[address] [facility] POCT GLUCOSE (AUTOMATED) 2021-12-27 12:29:[address] [facility] BASIC METABOLIC PANEL 2021-12-27 09:27:00 Danielle Rothman [facility] (NA, K, CL, CO2, Medical Branch GLUCOSE, BUN, CREATININE, CA) CBC WITH DIFF 2021-12-27 09:27:00 Danielle Rothman [facility] POCT GLUCOSE (AUTOMATED) 2021-12-27 01:11:[address] [facility] POCT GLUCOSE (AUTOMATED) 2021-12-26 21:17:00 [facility]) 2021-12-26 16:48:[address] [facility] POCT GLUCOSE (AUTOMATED) 2021-12-26 12:47:00 [facility]ACT[facility]HY[facility]GENASE 2021-12-26 09:26:00 Ted [facility] MAGNESIUM 2021-12-26 09:26:00 Ted [facility] HEPATIC FUNCTION PANEL 2021-12-26 09:26:00 Ted [facility] ([id number]) (ALB,T.PRO,BILI Medical Branch T,BU/BC,ALT,AST,ALK PHOS) BASIC METABOLIC PANEL 2021-12-26 09:26:00 Ted [facility] (NA, K, CL, CO2, Medical Branch GLUCOSE, BUN, CREATININE, CA) CBC WITH DIFF 2021-12-26 09:26:00 Ted [facility] POCT GLUCOSE (AUTOMATED) 2021-12-26 00:44:[address] [facility] POCT GLUCOSE (AUTOMATED) 2021-12-25 23:16:[address] [facility] URINALYSIS 2021-12-25 15:12:00 Chilo Oliva [facility] XR CHEST 2 VW 2021-12-25 14:56:42 Chilo Oliva [facility] COMP. METABOLIC PANEL 2021-12-25 14:31:00 Chilo Oliva [facility] ([id number]) [facility] CBC WITH DIFF 2021-12-25 14:31:00 Chilo Oliva [facility] PROTHROMBIN TIME / INR 2021-12-25 14:31:00 Chilo Oliva [facility] ACTIVATED PARTIAL 2021-12-25 14:31:00 Chilo Oliva [facility] CONSENT/REFUSAL FOR 2021-12-25 13:31:05 Doctor [facility]assigned, [facility] BASIC METABOLIC PANEL 2021-12-14 22:07:00 Mike Hoffman [facility] (NA, K, CL, CO2, Medical Branch GLUCOSE, BUN, CREATININE, CA) CBC WITH DIFF 2021-12-14 22:07:00 Mike Hoffman [facility] CONSENT/REFUSAL FOR 2021-12-14 19:51:33 Doctor Unassigned, No [facility] Name [facility] POCT GLUCOSE (AUTOMATED) 2021-12-09 16:37:[address] [facility] POCT GLUCOSE (AUTOMATED) 2021-12-09 12:50:[address] [facility] BASIC METABOLIC PANEL 2021-12-09 08:57:00 [facility]le [facility] (NA, K, CL, CO2, Medical Branch GLUCOSE, BUN, CREATININE, CA) POCT GLUCOSE (AUTOMATED) 2021-12-09 01:54:00 Semaj, Alisha Uni [facility] POCT GLUCOSE (AUTOMATED) 2021-12-08 21:56:[address] [facility] POCT GLUCOSE (AUTOMATED) 2021-12-08 16:49:[address] [facility] POCT GLUCOSE (AUTOMATED) 2021-12-08 14:07:00 Alisha Cha [facility] PHOSPHORUS 2021-12-08 08:58:00 Dusty Josue [facility] URIC ACID 2021-12-08 08:58:00 Dusty Jos[facility] MAGNESIUM 2021-12-08 08:58:00 Dusty Jos[facility] AMMONIA, PLASMA 2021-12-08 08:58:00 Dusty Jos[facility] BASIC METABOLIC PANEL 2021-12-08 08:58:00 Danielle Rothman [facility] (NA, K, CL, CO2, [facility] [place] GLUCOSE, BUN, CREATININE, CA) IRON PANEL 2021-12-08 08:58:00 Dusty Jos[facility] CBC WITH DIFF 2021-12-08 08:58:00 Danielle Rothman [facility] URINALYSIS 2021-12-08 02:26:00 Willy [facility] POTASSIUM, URINE RANDOM 2021-12-08 02:25:00 Willy [facility] SODIUM, URINE RANDOM 2021-12-08 02:25:00 Willy [facility] PROTEIN CREAT RATIO 2021-12-08 02:25:00 Willy [facility] URINE RANDOM [facility] OSMOLALITY URINE 2021-12-08 02:23:00 Willy [facility] POCT GLUCOSE (AUTOMATED) 2021-12-08 02:08:00 Alisha Cha [facility] CA ABDOM PARACENTESIS 2021-12-07 22:45:00 Bucky Gloria [facility] DX/THER W IMAGING [facility] GUIDANCE PHOSPHORUS 2021-12-07 19:33:00 Stephan, [facility] CREATINE KINASE 2021-12-07 19:33:00 Willy [facility] MAGNESIUM 2021-12-07 19:33:00 Stephan [facility] LIPID PANEL 2021-12-07 19:33:00 Stephan [facility] ([id number])(TOTAL Medical Branch CHOLESTEROL, TRIGLYCERIDES, HDL) N-TERMINAL PRO-BNP 2021-12-07 19:33:[facility] MET[facility]OLIC PANEL 2021-12-07 16:02:00 Bucky Gloria [facility] ([id number]) [facility] CBC WITH DIFF 2021-12-07 16:02:00 Faizan [facility] GLYCOSYLATED HEMOGLOBIN 2021-12-07 16:02:[facility] PROTHROMBIN TIME / INR 2021-12-07 16:02:00 Faizan Bucky [facility] ACTIVATED PARTIAL 2021-12-07 16:02:00 Faizan [facility] THRMPLAS SADE [facility] CONSENT/REFUSAL FOR 2021-12-07 15:35:39 Doctor Unassigned, No [facility] [place] DIAGNOSIS AND TREATMENT [facility] CA ABDOM PARACENTESIS 2021-11-23 19:39:58 Jonna Lance [facility] DX/THER W IMAGING [facility] GUIDANCE CONSENT/REFUSAL FOR 2021-11-23 18:36:31 Doctor Unassigned, No [facility] [place] DIAGNOSIS AND TREATMENT [facility] CA ABDOM PARACENTESIS 2021-11-09 20:59:55 Kev Nguyen [facility] DX/THER W IMAGING [facility] GUIDANCE CONSENT/REFUSAL FOR 2021-11-09 19:35:17 Doctor Unassigned, No [facility] [place] DIAGNOSIS AND TREATMENT [facility] NOTICE OF PRIVACY 2021-11-09 19:32:40 Doctor Unassigned, No [facility] LIPASE 2021-10-18 15:50:00 Annabelle Ramirez [facility] COMP. METABOLIC PANEL 2021-10-18 15:50:00 Annabelle Ramirez [facility] [place] ([id number]) [facility] CBC WITH DIFF 2021-10-18 15:50:00 Annabelle Ramirez [facility] CONSENT/REFUSAL FOR 2021-10-18 15:18:16 Doctor Unassigned, No Un [facility] DIAGNOSIS AND TREATMENT Name Medical Branch Encounters Start End Encounter Admission Attending Care Care Encounter Source Date/Time Date/Time Type Type Clinicians Facility Department ID 2022-09-17 2022-09-17 Outpatient [facility] [place] 11:30:32 11:30:32 [id number] [facility] 2022-08-13 2022-08-13 Outpatient [facility] [place] 08:09:25 08:09:25 [id number] [facility] 2022-08-12 2022-08-12 [facility] [id number] Univers 10:04:00 12:47:00 MIKE reynoso [facility] 2022-08-12 2022-08-12 Emergency AbdonRanken [facility] 1.2.409.771 [id number] Univers 10:04:00 12:47:00 Mike SOSA 350.1.13.10 i ty [facility] 4.2.7.2.686 [facility] [phone] [facility] [address] [place] 2022-06-13 2022-06-13 Outpatient [facility] [id number] [place] 09:35:42 09:35:42 [id number] [facility] 2022-06-06 2022-06-06 Office Cleve KSEMILIA 1.2.840.114 [id number] Univers 14:30:00 15:00:00 Visit [facility] SPECIALTY 350.1.13.10 ity of [facility] 4.2.7.2.686 [facility] AT [phone] Ok farrah LYONS [address] [place] [address] 2022-06-06 2022-06-[address] [facility] [id number] Univers 14:30:00 14:30:00 LEILA cedenoy [facility] 2022-06-06 2022-06-06 Orders Doctor ALVARADO 1.2.840.114 [id number] Univers 00:00:00 00:00:00 Only Unassigned, CARL 350.1.13.10 ity of [place] [facility] 4.2.7.2.686 Henrique as [phone] [facility] [address] [place] 2022-06-05 2022-06-05 Emergency X KRISTELJOSÉ MIGUEL Schwarz [facility] ERT 1 [id number] Univers 06:51:00 10:20:00 KRISTELJOSÉ MIGUEL Schwarz ity of [facility] 2022-06-05 2022-06-05 Emergency Kristel, TRAUMA 1.2.726.412 [id number] Univers 06:51:00 10:20:00 [facility] 350.1.13.10 [place] [phone] [facility] [address] [place] 2022-05-31 2022-05-31 Emergency X JEREMIAS MOHR [facility] ERT 1 [id number] Univers 13:40:00 19:16:00 JEREMIAS MOHR ity of [facility] 2022-05-31 2022-05-31 Emergency Mohr, TRAUMA 1.2.512.096 [id number] Univers 13:40:00 19:16:00 [facility] 350.1.13.10 [phone] [address] 2022-05-13 2022-05-13 Outpatient [facility] [id number] [place] 08:36:17 08:36:17 81899 F [place] 2022-04-10 2022-04-11 Outpatient U DION [facility] NICOLE [id number] Univers 14:05:00 17:45:00 GEETA ity of [facility] 2022-04-10 2022-04-11 Emergency Bucky Gloria MOLLY 1.2.840. 114 [id number] Univers 14:05:00 17:45:00 Michelle Youngrick CARL 350.1.13.10 ity of [facility] 4.2.7.2.686 Henrique as [phone] [place] [address] [place] 2022-03-27 2022-03-27 Emergency X KIAT [facility] ERT [id number] Univers 12:34:00 17:18:00 GINI reynoso [facility] 2022-03-27 2022-03-27 Emergency East, [facility] 1.2.404.266 [id number] Univers 12:34:00 17:18:00 Gini SOSA 350.1.13.10 ity of [place] 4.2.7.2.686 [facility] [phone] [address] 2022-03-26 2022-03-26 Outpatient [facility] [id number] [place] 10:22:23 10:22:23 [id number] [facility] 2022-03-25 2022-03-25 Outpatient [facility] [place] 13:11:32 13:11:32 [id number] [facility] 2022-03-12 2022-03-12 Emergency X SINGER [facility] ERT [id number] Univers 11:38:00 14:36:00 KEV reynoso [facility] 2022-03-12 2022-03-12 Emergency Singer [facility] 1.2.165.225 [id number] Univers 11:38:00 14:36:00 Kev SOSA 350.1.13.10 i ty of [place] 4.2.7.2.686 [facility] [phone] [address] 2022-02-27 2022-02-27 Emergency X , [facility] ERT [id number] Univers 15:04:00 16:07:00 KEV reynoso [facility] 2022-02-27 2022-02-27 Emergency Singer [facility] 1.2.003.280 [id number] Univers 15:04:00 16:07:00 Kev SOSA 350.1.13.10 i ty of [place] 4.2.7.2.686 [facility] [phone] [address] 2022-02-13 2022-02-13 Emergency X , [facility] ERT [id number] Univers 15:17:00 16:45:00 KEV reynoso [facility] 2022-02-13 2022-02-13 Emergency Singer [facility] 1.2.763.369 [id number] Univers 15:17:00 16:45:00 Kev SOSA 350.1.13.10 i ty of [place] 4.2.7.2.686 [facility] [phone] [place] [address] [place] 2022-01-30 2022-01-30 Emergency X , [facility] ERT [id number] Univers 10:58:00 13:28:00 KEV reynoso [facility] 2022-01-30 2022-01-30 Emergency Lila Leo [facility] 1.2.840. 114 [id number] Univers 10:58:00 13:28:00 Kev Nguyen 350.1.13.10 ity of [place] 4.2.7.2.686 [facility] [phone] [address] 2022-01-16 2022-01-[address] [facility] ERT [id number] Univers 11:43:00 14:30:00 KEV reynoso [facility] 2022-01-16 2022-01-[address] [facility] 1.2.426.020 [id number] Univers 11:43:00 14:30:00 Kev SOSA 350.1.13.10 i ty of [place] 4.2.7.2.686 [facility] [phone] [address] 2022-01-16 2022-01-16 Orders Doctor JENNY 1.2.840.114 [id number] Univers 00:00:00 00:00:00 Only Unassigned, CARL 350.1.13.10 ity [place] [facility] 4.2.7.2.686 Henrique [phone] [facility] [address] 2022-01-12 2022-01-[address] [facility] ERT [id number] Univers 17:45:00 21:44:00 JAQUI reynoso [facility] 2022-01-12 2022-01-12 Emergency Samuel Jennings TRAUMA 1.2.840 .114 [id number] Univers 17:45:00 21:44:00 Jaqui Romano HUGO 350.1.13.10 ity of 4.2.7.2.686 [facility] [phone] [facility] [address] 2022-01-12 2022-01-[address] [facility] ERT [id number] Univers 15:17:00 15:27:00 MAGNOLIA ity [facility] 2022-01-12 2022-01-[address] [facility] 1.2.194.507 [id number] Univers 15:17:00 15:27:00 Magnolia SOSA 350.1.13.10 ity of [facility] 4.2.7.2.686 [facility] [phone] [facility] [address] 2022-01-01 2022-01-01 Transition WENCESLAO Fragoso 1.2.840.114 [id number] Univers 00:00:00 00:00:00 of Care Analia AVERY 350.1.13.10 ity of [place] 4.2.7.2.686 [facility] [phone] [facility] [address] 2021-12-25 2021-12-28 Inpatient X TED [facility] [id number] Univers 08:38:00 13:08:00 AUGUSTIN ity [facility] 2021-12-25 2021-12-28 [facility] Chilo Oliva [facility] 1.2.840. 114 [id number] Univers 08:38:00 13:08:00 Encounter Augustin Jean 350.1.13.10 ity of [facility] 4.2.7.2.686 [facility] [phone] [facility] [address] 2021-12-14 2021-12-14 Emergency X YASMIN [facility] ERT [id number] Univers 14:56:00 18:52:00 MIKE reynoso [facility] 2021-12-14 2021-12-[address] [facility] 1.2.187.166 [id number] Univers 14:56:00 18:52:00 Mike SOSA 350.1.13.10 i ty of [place] 4.2.7.2.686 [facility] [phone] [facility] [address] 2021-12-07 2021-12-09 Inpatient X SEMAJ [facility] NICOLE [id number] Univers 10:44:00 16:35:00 ALISHA edgardo [facility] 2021-12-07 2021-12-09 Hospital Bucky Gloria [facility] 1.2.840.1 14 [id number] Univers 10:44:00 16:35:00 Encounter Alisha Cha 350.1.13.10 ity [facility] 4.2.7.2.686 [facility] [phone] [facility] [address] 2021-11-23 2021-11-[address] [facility] ERT [id number] Univers 13:42:00 14:58:00 JONNA wilianyasmeen [facility] 2021-11-23 2021-11-[address] [facility] 1.2.840.114 [id number] Univers 13:42:00 14:58:00 Jonna SOSA 350.1.13.10 ity [facility] 4.2.7.2.686 [facility] [phone] [facility] [address] [place] 2021-11-09 2021-11-[address] [facility] ERT [id number] Univers 14:51:00 16:42:00 KEV wilianyasmeen [facility] 2021-11-09 2021-11-[address] [facility] 1.2.003.285 [id number] Univers 14:51:00 16:42:00 Kev SHEILA 350.1.13.10 i ty [facility] 4.2.7.2.686 [facility] [phone] [facility] [address] 2021-11-09 2021-11-09 Orders Doctor JENNY 1.2.840.114 [id number] Univers 00:00:00 00:00:00 Only Unassigned, CARL 350.1.13.10 ity [place] [facility] 4.2.7.2.686 [facility] [phone] [facility] [address] 2021-10-18 2021-10-18 Emergency X ASHLEY [facility] ERT [id number] Univers 10:21:00 11:56:00 ANNABELLE reynoso [facility] 2021-10-18 2021-10-18 Emergency Ibshannonunle, TRAUMA 1.2.840.114 [id number] Univers 10:21:00 11:56:00 [facility] 350.1.13.10 ity of 4.2.7.2.686 Radha gardner [phone] [place] [address] [place] Results Test Description Test Time Test Comments Results Result Comments Source BASIC METABOLIC PANEL (NA, K, CL, CO2, GLUCOSE, BUN, 2022-05 13:40:36 CREATININE, CA) Test Item Value Reference Range Interpretation Comme nts NA (test code = 0839447436) 138 mmol/L 135-145 K (test code = 3821545425) 4.8 mmol/L 3.5-5.0 CL (test code = 5326225146) 102 mmol/L 98-108 CO2 TOTAL (test code = 3553732144) 32 mmol/L 23-31 H AGAP (test code = 1260682147) 4 2-16 BUN (test code = 9876410289) 45 mg/dL 7-23 H GLUCOSE (test code = 2271434559) 163 mg/dL 70-110 H CREATININE (test code = 2.52 mg/dL 0.60-1.25 H 9808481449) CALCIUM (test code = 7804109889) 8.1 mg/dL 8.6-10.6 L eGFR (test code = 6410004668) 25.8 mL/min/1.73m2 RODRIGO (test code = RODRIGO) [...] tests). Lab Interpretation (test code = Abnormal 79317-6) [facility]06287[facility] (ALB,T.PRO,BILI T,BU/BC,ALT,AST,ALK PHOS)2022-06-05 13:40:36 Test Item Value Reference Range Interpretation Comments TOTAL BILI (test code = 2620649299) 0.4 mg/dL 0.1-1.1 BILI UNCON (test code = 0056130651) 0.1 mg/dL 0.1-1.1 BILI CONJ (test code = 5586687185) 0.0 mg/dL 0.0-0.3 T PROTEIN (test code = 6145736199) 6.0 g/dL 6.3-8.2 L ALBUMIN (test code = 1370608610) 2.9 g/dL 3.5-5.0 L ALK PHOS (test code = 8574649743) 71 U/L 34-122 ALTv (test code = 1742-6) 15 U/L 5-50 AST(SGOT) (test code = 2921190533) 23 U/L 13-40 Lab Interpretation (test code = Abnormal 93982-7) [facility] Clinic[facility]IPASE2023-03-29 13:40:36 Test Item Value Reference Range Interpretation Comments LIPASE (test code = 0327562060) 125 U/L 0-220 Lab Interpretation (test code = Normal 65600-4) [facility] ClinicACTIV[facility] PARTIAL THRMPLAS [id number] 13:37:54 Test Item Value Reference Range Interpretation Comments APTT Patient (test code 38 See_Comment H [Au tomated message] = 9033-2) The system [employer] generated this result transmitted ref erence range: 26 - 36 Seconds. The reference range was not used to int erpret this result as normal/abnormal . Lab Interpretation (test Abnormal code = 03129-0) [facility] ClinicPROTHROMBIN TIME / [id number] 13:37:54 Test Item Value Reference Range Interpretation [...] tions. Lab Interpretation (test Abnormal code = 91289-7) [facility] Clinic[facility] WITH [id number] 13:31:36 Test Item Value Reference Range Interpretation Comments WBC (test code = 4.39 See_Comment [Automated 5290-2) message] The sy stem which generated this result transmitted reference range : 4.20 - 10.70 10*3/?L. The reference range was not used to interpret this result as normal/abnormal . RBC (test code = 3.48 See_Comment L [Automated 889-8) message] The sy stem which generated this [...] RDW-SD (test code = 45.2 fL 38.5-51.6 91138-2) RDW-CV (test code = 13.9 % 12.1-15.4 788-0) PLT (test code = 123 See_Comment L [Automated 777-3) message] The sy stem which generated this result transmitted reference range : 150 - 328 10*3/ ?L. The reference r kelin was not used to interpret this result as normal/abnormal . MPV (test code = 9.7 fL 9.8-13.0 L 19645-0) NRBC/100 WBC (test 0.0 See_Comment [Automat ed code = 1196358772) message] The system which generated this result transmitted reference range : 0.0 - 10.0 /100 WBCs. The refer ence range was not u sed to interpret th is result as normal/abnormal . NRBC x10^3 (test code See_Comment [Auto mated = 4358632369) message] The s ystem which generated this result transmitted reference range : 10*3/?L. The reference range was not used to interpret this result as normal/abnormal . GRAN MAT (NEUT) % 74.0 % (test code = 770-8) IMM GRAN % (test code 0.70 % = 0471157065) LYMPH % (test code = 10.9 % 736-9) MONO % (test code = 11.2 % 5905-5) EOS % (test code = 2.7 % 713-8) BASO % (test code = 0.5 % 706-2) GRAN MAT x10^3(ANC) 3.25 10*3/uL 1.99-6.95 (test code = 3101783131) IMM GRAN x10^3 (test 0.03 10*3/uL 0.00-0.06 code = 1644403423) LYMPH x10^3 (test code 0.48 10*3/uL 1.09-3.23 L = 731-0) MONO x10^3 (test code 0.49 10*3/uL 0.36-1.02 = 742-7) EOS x10^3 (test code = 0.12 10*3/uL 0.06-0.53 711-2) BASO x10^3 (test code 0.01-0.09 = 704-7) Lab Interpretation Abnormal (test code = 51340-7) [facility] METABOLIC PANEL (NA, K, CL, CO2, GLUCOSE, BUN, CREATININE, CA)2022-05-31 19:22:56 Test Item Value Reference Range Interpretation Comments NA (test code = 136 mmol/L 135-145 2902039049) K (test code = 5.2 mmol/L 3.5-5.0 H 3228682689) CL (test code = 100 mmol/L 98-108 4287751540) CO2 TOTAL (test code = 29 mmol/L 23-31 2874400767) AGAP (test code = 7 2-16 5595792885) BUN (test code = 49 mg/dL 7-23 H 3906832091) GLUCOSE (test code = 115 mg/dL 70-110 H 7430911740) CREATININE (test code = 2.47 mg/dL 0.60-1.25 H 7144021647) CALCIUM (test code = 8.3 mg/dL 8.6-10.6 L 1311517521) eGFR (test code = 26.4 mL/min/1.73m2 0934781744) RODRIGO (test code = RODRIGO) Association of [...] tests). Lab Interpretation Abnormal (test code = 13355-2) [facility] WITH [id number] 19:14:12 Test Item Value Reference Range Interpretation [...] RDW-SD (test code = 46.5 fL 38.5-51.6 40690-1) RDW-CV (test code = 14.3 % 12.1-15.4 788-0) PLT (test code = 163 See_Comment [Automated 777-3) message] The sy stem which generated this result transmitted reference range : 150 - 328 10*3/ ?L. The reference r kelin was not used to interpret this result as normal/abnormal . MPV (test code = 9.2 fL 9.8-13.0 L 52320-4) NRBC/100 WBC (test 0.0 See_Comment [Automat ed code = 7439002899) message] The system which generated this result transmitted reference range : 0.0 - 10.0 /100 WBCs. The refer ence range was not u sed to interpret th is result as normal/abnormal . NRBC x10^3 (test code See_Comment [Auto mated = 5180015443) message] The s ystem which generated this result transmitted reference range : 10*3/?L. The reference range was not used to interpret this result as normal/abnormal . GRAN MAT (NEUT) % 73.9 % (test code = 770-8) IMM GRAN % (test code 0.40 % = 0391023531) LYMPH % (test code = 13.1 % 736-9) MONO % (test code = 9.1 % 5905-5) EOS % (test code = 2.9 % 713-8) BASO % (test code = 0.6 % 706-2) GRAN MAT x10^3(ANC) 3.51 10*3/uL 1.99-6.95 (test code = 7021877642) IMM GRAN x10^3 (test 0.00-0.06 code = 6946779559) LYMPH x10^3 (test code 0.62 10*3/uL 1.09-3.23 L = 731-0) MONO x10^3 (test code 0.43 10*3/uL 0.36-1.02 = 742-7) EOS x10^3 (test code = 0.14 10*3/uL 0.06-0.53 711-2) BASO x10^3 (test code 0.03 10*3/uL 0.01-0.09 = 704-7) Lab Interpretation Abnormal (test code = 18796-0) [facility] ClinicPROTHROMBIN TIME / [id number] 19:12:09 Test Item Value Reference Range Interpretation [...] tions. Lab Interpretation (test Abnormal code = 39100-6) [facility] ClinicBODY FLUID MANUAL [id number] 22:52:46 Test Item Value Reference Range Interpretation Comments BF SEGS% (test 16 % code = 31066-2) BF LYMPHS% (test 50 % code = 02068-7) BF MACROPHAGE% 30 % (test code = 57643-6) BF MESOS% (test 4 % code = 95370-9) BF #CELLS CNTD 100 cells/uL (test code = 3164324799) RODRIGO (test code = Reviewed by AHNG HERNANDES MD, Director of HEMATOPATHOLOGY [facility] ClinicTotal Protein Body [id number] 08:10:53 Test Item Value Reference Range Interpretation Comments T.PROT BF (test 3000.0 mg/dL code = 5503749057) UNSPUN BODY FLUID Light Yellow COLOR (test code = 1541836049) UNSPUN BODY FLUID Cloudy CLARITY (test code = 1485027445) SPUN BODY FLUID Light Yellow COLOR (test code = 4115876290) SPUN BODY FLUID Cloudy CLARITY (test code = 6980426138) Sediment (test code The sediment volume is = 1084569963) <0.01 mLs of the total fluid volume of 5 mLs and its color is red. RODRIGO (test code = Test developed and RODRIGO) characteristics determined by [facility] Laboratory Services. [facility] ClinicBODY FLUID DIRECT [id number] 08:09:17 Test Item Value Reference Range Interpretation Comments BF COLOR (test Yellow code = 2492543761) TURBIDITY (test Turbid code = 9186925945) BF WBC Count 645 See_Comment [Automated (test code = message] The 2354917207) system which generated this result transmitted reference range : /?L. The reference range was not used to interpret this result as normal/abnormal . BF RBC Count See_Comment [Automated (test code = message] The 8159470728) system which generated this result transmitted reference range : /?L. The reference range was not used to interpret this result as normal/abnormal . RODRIGO (test code = The reference range RODRIGO) and other method performance specifications have not been established for this body fluid. ?The test results must be integrated into the clinical context for interpretation. [facility] ClinicGLYCOSYLATED HEMOGLOBIN (A1C)2022-04-11 04:15:40 Test Item Value Reference Range Interpretation Comments HGB A1C (test code = 5.0 % 4.0-5.7 4548-4) RODRIGO (test code = RODRIGO) Reference RangesNormal: <5.7%Prediabetes: 5.7 - 6.4%Diabetes: > 6.5% Lab Interpretation (test Normal code = 67533-7) [facility] ClinicACTIVATED PARTIAL THRMPLAS [id number] 21:53:50 Test Item Value Reference Range Interpretation Comments APTT Patient (test 27 See_Comment [Automat ed code = 3173-2) message] The system which generated this result transmitted reference range : 23 - 38 Seconds . The reference range was not used to interpr et this result as normal/abnormal . RODRIGO (test code = RODRIGO) The [facility] patient population mean normal value for aPTT is 30 seconds. Lab Interpretation Normal (test code = 38169-3) [facility] ClinicPROTHROMBIN TIME / [id number] 21:51:52 Test Item Value Reference Range Interpretation [...] tions. Lab Interpretation (test Normal code = 61600-4) [facility] ClinicCOMP. METABOLIC PANEL (30869)2022-04-10 21:50:30 Test Item Value Reference Range Interpretation Comments NA (test code = 138 mmol/L 135-145 4383753871) K (test code = 4.7 mmol/L 3.5-5.0 7622191431) CL (test code = 114 mmol/L 98-108 H 0902468159) CO2 TOTAL (test code = 21 mmol/L 23-31 L 8971003077) AGAP (test code = 3 2-16 8898682120) BUN (test code = 55 mg/dL 7-23 H 9571032593) GLUCOSE (test code = 119 mg/dL 70-110 H 7314331302) CREATININE (test code = 1.98 mg/dL 0.60-1.25 H 0719278364) TOTAL BILI (test code = 0.7 mg/dL 0.1-1.2 3927156859) CALCIUM (test code = 7.7 mg/dL 8.6-10.6 L 2547675408) T PROTEIN (test code = 6.0 g/dL 6.3-8.2 L 3059693766) ALBUMIN (test code = 2.5 g/dL 3.5-5.0 L 4061475525) ALK PHOS (test code = 85 U/L 34-122 5181277589) ALTv (test code = 23 U/L 5-50 1742-6) AST(SGOT) (test code = 33 U/L 13-40 8221639435) eGFR (test code = 34.1 mL/min/1.73m2 0092906307) RODRIGO (test code = RODRIGO) Association of [...] tests). Lab Interpretation Abnormal (test code = 44254-9) [facility] WITH [id number] 21:35:48 Test Item Value Reference Range Interpretation [...] RDW-SD (test code = 50.8 fL 38.5-51.6 71590-3) RDW-CV (test code = 16.6 % 12.1-15.4 H 788-0) PLT (test code = 170 See_Comment [Automated 777-3) message] The sy stem which generated this result transmitted reference range : 150 - 328 10*3/ ?L. The reference r kelin was not used to interpret this result as normal/abnormal . MPV (test code = 9.2 fL 9.8-13.0 L 62377-8) NRBC/100 WBC (test 0.0 See_Comment [Automat ed code = 7343092302) message] The system which generated this result transmitted reference range : 0.0 - 10.0 /100 WBCs. The refer ence range was not u sed to interpret th is result as normal/abnormal . NRBC x10^3 (test code See_Comment [Auto mated = 1401260080) message] The s ystem which generated this result transmitted reference range : 10*3/?L. The reference range was not used to interpret this result as normal/abnormal . GRAN MAT (NEUT) % 73.6 % (test code = 770-8) IMM GRAN % (test code 1.30 % = 5989411642) LYMPH % (test code = 12.6 % 736-9) MONO % (test code = 8.9 % 5905-5) EOS % (test code = 3.2 % 713-8) BASO % (test code = 0.4 % 706-2) GRAN MAT x10^3(ANC) 3.40 10*3/uL 1.99-6.95 (test code = 1573880347) IMM GRAN x10^3 (test 0.06 10*3/uL 0.00-0.06 code = 8465495282) LYMPH x10^3 (test code 0.58 10*3/uL 1.09-3.23 L = 731-0) MONO x10^3 (test code 0.41 10*3/uL 0.36-1.02 = 742-7) EOS x10^3 (test code = 0.15 10*3/uL 0.06-0.53 711-2) BASO x10^3 (test code 0.01-0.09 = 704-7) Lab Interpretation Abnormal (test code = 67521-8) [facility], [id number] 09:54:12SPECIMEN NUMBER: [id number] CULTURE, URINE SPECIMEN NUMBER: [id number] SPECIMEN COMMENT: URINE SOURCE:URINE REPORT STATUS: FINAL FINAL REPORT: 03/28/2022 10-50,000 CFU/ML UROGENITAL ANUPAM PRESENT NO COMMON [id number] 04:49:09 Test Item Value Reference Range Interpretation Comments MAGNESIUM (test code = 2226) 2.2 MG/DL 1.6-2.6 COMPREHENSIVE METABOLIC [id number] 04:36:10 Test Item Value Reference Range Interpretation Comments GLUCOSE (test code = 96 MG/DL 70-99 2216) BUN (test code = 39 MG/DL 8-23 H 2207) CREATININE (test 2.06 MG/DL 0.80-1.40 H code = 2214) eGFR (2020 CKD-EPI) 35 ML/MIN/1.73 >60 L (test code = 93723) CALC BUN/CREAT (test 19 RATIO 6-28 code = 2235) SODIUM (test code = 141 MEQ/L 838-832 1474) POTASSIUM (test code 4.3 MEQ/L 3.5-5.4 = [...] U/L 5-50 2218) CBC W/AUTO DIFF WITH [id number] 02:15:32 Test Item Value Reference Range Interpretation [...] message] code = 1065) WBC'S The system [employer] generated this result transmitted ref erence range: [...] 0.00-0.11 UNLESS O THERWISE (test code = 66014) INDICATE D, ALL TESTING PERFORM ED [facility], [facility]. [address] [place] [id number] [place] [address] DIRECTOR: SHERRI PLASENCIA M.D. CLIA NUMBER [id number] [place] [id number] COMP. METABOLIC PANEL ([id number])2022 01:50:35 Test Item Value Reference Range Interpretation Comments NA (test code = 136 mmol/L 135-145 2015888647) K (test code = 5.2 mmol/L 3.5-5.0 H 5832964957) CL (test code = 102 mmol/L 98-108 1305790610) CO2 TOTAL (test code = 26 mmol/L 23-31 3382349374) AGAP (test code = 2-16 8906853628) BUN (test code = 49 mg/dL 7-23 H 8258557426) GLUCOSE (test code = 143 mg/dL 70-110 H 9533738328) CREATININE (test code = 2.26 mg/dL 0.60-1.25 H 2520434478) TOTAL BILI (test code = 0.4 mg/dL 0.1-1.5 1307684643) CALCIUM (test code = 8.2 mg/dL 8.6-10.6 L 0927701525) T PROTEIN (test code = 6.8 g/dL 6.3-8.2 5932372896) ALBUMIN (test code = 2.9 g/dL 3.5-5.0 L 5850406595) ALK PHOS (test code = 101 U/L 34-122 7748759546) ALTv (test code = 14 U/L 5-50 1742-6) AST(SGOT) (test code = 21 U/L 13-40 0638083631) eGFR (test code = mL/min/1.73m2 4634131625) RODRIGO (test code = RODRIGO) Association of [...] tests). Lab Interpretation Abnormal (test code = 14623-3) [facility] / [id number] 01:37:54 Test Item Value Reference Range Interpretation [...] tions. Lab Interpretation (test Abnormal code = 86470-6) [facility] Clinic[facility] PART[facility] THRMPLAS [id number] 01:37:54 Test Item Value Reference Range Interpretation Comments APTT Patient (test code See_Comment H [Au tomated message] = 3173-2) The system [email or web address] generated this result transmitted ref erence range: 26 - 36 Seconds. The reference range was not used to int erpret this result as normal/abnormal . Lab Interpretation (test Abnormal code = 99136-3) [facility] WITH [id number] 01:33:12 Test Item Value Reference Range Interpretation Comments WBC (test code = See_Comment [Automated 9890-2) message] The sy stem which generated this result transmitted reference range : 4.20 - 10.70 10*3/?L. The reference range was not used to interpret this result as normal/abnormal . RBC (test code = See_Comment L [Automated 809-8) message] The sy stem which generated this [...] (test code = 54.2 fL 38.5-51.6 H 19472-6) RDW-CV (test code = 19.4 % 12.1-15.4 H 788-0) PLT (test code = See_Comment [Automated 777-3) message] The sy stem which generated this result transmitted reference range : 150 - 328 10*3/ ?L. The reference r kelin was not used to interpret this result as normal/abnormal . MPV (test code = 9.2 fL 9.8-13.0 L 81849-0) NRBC/100 WBC (test See_Comment [Automat ed code = 9493309338) message] The system which generated this result transmitted reference range : 0.0 - 10.0 /100 WBCs. The refer ence range was not u sed to interpret th is result as normal/abnormal . NRBC x10^3 (test code See_Comment [Auto mated = 4992545772) message] The s ystem which generated this result transmitted reference range : 10*3/?L. The reference range was not used to interpret this result as normal/abnormal . GRAN MAT (NEUT) % 75.8 % (test code = 770-8) IMM GRAN % (test code 0.80 % = 2027493427) LYMPH % (test code = 12.1 % 736-9) MONO % (test code = 8.3 % 5905-5) EOS % (test code = 2.5 % 713-8) BASO % (test code = 0.5 % 706-2) GRAN MAT x10^3(ANC) 4.56 10*3/uL 1.99-6.95 (test code = 5885029474) IMM GRAN x10^3 (test 0.05 10*3/uL 0.00-0.06 code = 7645483939) LYMPH x10^3 (test code 0.73 10*3/uL 1.09-3.23 L = 731-0) MONO x10^3 (test code 0.50 10*3/uL 0.36-1.02 = 742-7) EOS x10^3 (test code = 0.15 10*3/uL 0.06-0.53 711-2) BASO x10^3 (test code 0.03 10*3/uL 0.01-0.09 = 704-7) Lab Interpretation Abnormal (test code = 57429-0) [facility]2021-12-28 13:35:14 Test Item Value Reference Range Interpretation Comments POCT GLU (test code = 1677611588) 160 mg/dL 70-110 H Lab Interpretation (test code = Abnormal 99711-3) [facility] METABOLIC PANEL (NA, K, CL, CO2, GLUCOSE, BUN, CREATININE, CA)2021-12-28 09:59:31 Test Item Value Reference Range Interpretation Comments NA (test code = 135 mmol/L 135-145 7150209411) K (test code = 3.8 mmol/L 3.5-5 0794869428) CL (test code = 107 mmol/L 98-108 4639171673) CO2 TOTAL (test code = 25 mmol/L 23-31 2354360900) AGAP (test code = 2-16 9064094714) BUN (test code = 42 mg/dL 7-23 H 2892772737) GLUCOSE (test code = 150 mg/dL 70-110 H 1250928676) CREATININE (test code = 2.01 mg/dL 0.6-1.25 H 9939518785) CALCIUM (test code = 7.6 mg/dL 8.6-10.6 L 5752545623) eGFR (test code = mL/min/1.73m2 6807882061) RODRIGO (test code = RODRIGO) Association of [...] tests). Lab Interpretation Abnormal (test code = 56693-3) [facility] WITH [id number] 09:37:28 Test Item Value Reference Range Interpretation [...] (test code = 52.0 fL 38.5-51.6 H 67361-3) RDW-CV (test code = 19.2 % 12.1-15.4 H 788-0) PLT (test code = See_Comment [Automated 777-3) message] The sy stem which generated this result transmitted reference range : 150 - 328 10*3/ ?L. The reference r kelin was not used to interpret this result as normal/abnormal . MPV (test code = 9.6 fL 9.8-13 L 69949-4) NRBC/100 WBC (test See_Comment [Automat ed code = 8783827974) message] The system which generated this result transmitted reference range : 0.0 - 10.0 /100 WBCs. The refer ence range was not u sed to interpret th is result as normal/abnormal . NRBC x10^3 (test code See_Comment [Auto mated = 9535338298) message] The s ystem which generated this result transmitted reference range : 10*3/?L. The reference range was not used to interpret this result as normal/abnormal . GRAN MAT (NEUT) % 75.3 % (test code = 770-8) IMM GRAN % (test code 0.60 % = 4503762500) LYMPH % (test code = 11.9 % 736-9) MONO % (test code = 9.6 % 5905-5) EOS % (test code = 2.3 % 713-8) BASO % (test code = 0.3 % 706-2) GRAN MAT x10^3(ANC) 2.34 10*3/uL 1.99-6.95 (test code = 9326034114) IMM GRAN x10^3 (test 0-0.06 code = 8959442351) LYMPH x10^3 (test code 0.37 10*3/uL 1.09-3.23 L = 731-0) MONO x10^3 (test code 0.30 10*3/uL 0.36-1.02 L = 742-7) EOS x10^3 (test code = 0.07 10*3/uL 0.06-0.53 711-2) BASO x10^3 (test code 0.01-0.09 = 704-7) Lab Interpretation Abnormal (test code = 76867-7) [facility] GLUCOSE (AUTOMATED)2021-12-28 00:57:50 Test Item Value Reference Range Interpretation Comments POCT GLU (test code = 0182621378) 146 mg/dL 70-110 H Lab Interpretation (test code = Abnormal 57786-2) [facility] GLUCOSE (AUTOMATED)2021-12-27 21:58:17 Test Item Value Reference Range Interpretation Comments POCT GLU (test code = 2907980056) 125 mg/dL 70-110 H Lab Interpretation (test code = Abnormal 97442-8) [facility] GLUCOSE (AUTOMATED)2021-12-27 16:47:36 Test Item Value Reference Range Interpretation Comments POCT GLU (test code = 8895810903) 121 mg/dL 70-110 H Lab Interpretation (test code = Abnormal 94008-3) [facility] GLUCOSE (AUTOMATED)2021-12-27 12:53:58 Test Item Value Reference Range Interpretation Comments POCT GLU (test code = 8956057746) 114 mg/dL 70-110 H Lab Interpretation (test code = Abnormal 40251-7) [facility] GLUCOSE (AUTOMATED)2021-12-27 01:17:27 Test Item Value Reference Range Interpretation Comments POCT GLU (test code = 6249540828) 184 mg/dL 70-110 H Lab Interpretation (test code = Abnormal 40244-9) [facility] GLUCOSE (AUTOMATED)2021-12-26 21:25:07 Test Item Value Reference Range Interpretation Comments POCT GLU (test code = 2380841722) 151 mg/dL 70-110 H Lab Interpretation (test code = Abnormal 47788-0) [facility] GLUCOSE (AUTOMATED)2021-12-26 17:40:52 Test Item Value Reference Range Interpretation Comments POCT GLU (test code = 3071199906) 148 mg/dL 70-110 H Lab Interpretation (test code = Abnormal 77935-6) [facility] GLUCOSE (AUTOMATED)2021-12-26 12:54:00 Test Item Value Reference Range Interpretation Comments POCT GLU (test code = 0194447690) 150 mg/dL 70-110 H Lab Interpretation (test code = Abnormal 72629-2) [facility] GLUCOSE (AUTOMATED)2021-12-26 10:22:39 Test Item Value Reference Range Interpretation Comments POCT GLU (test code = 5145371296) 150 mg/dL 70-110 H Lab Interpretation (test code = Abnormal 98608-3) [facility]2021-12-26 01:21:28 Test Item Value Reference Range Interpretation Comments POCT GLU (test code = 0912761662) 136 mg/dL 70-110 H Lab Interpretation (test code = Abnormal 18971-7) [facility] METABOLIC PANEL (NA, K, CL, CO2, GLUCOSE, BUN, CREATININE, CA)2021-12-14 22:24:31 Test Item Value Reference Range Interpretation Comments NA (test code = 135 mmol/L 135-145 8345249005) K (test code = 5.5 mmol/L 3.5-5 H 2740225741) CL (test code = 105 mmol/L 98-108 4762993404) CO2 TOTAL (test code = 21 mmol/L 23-31 L 8794076593) AGAP (test code = 2-16 6909044059) BUN (test code = 44 mg/dL 7-23 H 9394313566) GLUCOSE (test code = 164 mg/dL 70-110 H 5517135079) CREATININE (test code = 1.79 mg/dL 0.6-1.25 H 3960289279) CALCIUM (test code = 7.9 mg/dL 8.6-10.6 L 3930773630) eGFR (test code = mL/min/1.73m2 7547022482) RODRIGO (test code = RODRIGO) Association of [...] tests). Lab Interpretation Abnormal (test code = 43687-5) [facility] WITH [id number] 22:14:09 Test Item Value Reference Range Interpretation [...] (test code = 52.1 fL 38.5-51.6 H 10304-8) RDW-CV (test code = 20.0 % 12.1-15.4 H 788-0) PLT (test code = See_Comment [Automated 777-3) message] The sy stem which generated this result transmitted reference range : 150 - 328 10*3/ ?L. The reference r kelin was not used to interpret this result as normal/abnormal . MPV (test code = 9.8 fL 9.8-13 66764-4) NRBC/100 WBC (test See_Comment [Automat ed code = 4633124884) message] The system which generated this result transmitted reference range : 0.0 - 10.0 /100 WBCs. The refer ence range was not u sed to interpret th is result as normal/abnormal . NRBC x10^3 (test code See_Comment [Auto mated = 5292580690) message] The s ystem which generated this result transmitted reference range : 10*3/?L. The reference range was not used to interpret this result as normal/abnormal . GRAN MAT (NEUT) % 79.6 % (test code = 770-8) IMM GRAN % (test code 0.90 % = 9292326091) LYMPH % (test code = 10.6 % 736-9) MONO % (test code = 7.4 % 5905-5) EOS % (test code = 1.2 % 713-8) BASO % (test code = 0.3 % 706-2) GRAN MAT x10^3(ANC) 4.60 10*3/uL 1.99-6.95 (test code = 1916434836) IMM GRAN x10^3 (test 0.05 10*3/uL 0-0.06 code = 5571892309) LYMPH x10^3 (test code 0.61 10*3/uL 1.09-3.23 L = 731-0) MONO x10^3 (test code 0.43 10*3/uL 0.36-1.02 = 742-7) EOS x10^3 (test code = 0.07 10*3/uL 0.06-0.53 711-2) BASO x10^3 (test code 0.01-0.09 = 704-7) Lab Interpretation Abnormal (test code = 58621-0) [facility] GLUCOSE (AUTOMATED)2021-12-09 16:40:51 Test Item Value Reference Range Interpretation Comments POCT GLU (test code = 6639006432) 200 mg/dL 70-110 H Lab Interpretation (test code = Abnormal 89449-0) [facility] GLUCOSE (AUTOMATED)2021-12-09 12:53:24 Test Item Value Reference Range Interpretation Comments POCT GLU (test code = 8525091587) 197 mg/dL 70-110 H Lab Interpretation (test code = Abnormal 83701-7) [facility] GLUCOSE (AUTOMATED)2021-12-09 01:58:46 Test Item Value Reference Range Interpretation Comments POCT GLU (test code = 7207223375) 138 mg/dL 70-110 H Lab Interpretation (test code = Abnormal 04681-8) [facility] GLUCOSE (AUTOMATED)2021-12-08 22:02:54 Test Item Value Reference Range Interpretation Comments POCT GLU (test code = 4977932689) 123 mg/dL 70-110 H Lab Interpretation (test code = Abnormal 33080-5) [facility] GLUCOSE (AUTOMATED)2021-12-08 17:18:39 Test Item Value Reference Range Interpretation Comments POCT GLU (test code = 3919610382) 200 mg/dL 70-110 H Lab Interpretation (test code = Abnormal 71695-5) [facility] GLUCOSE (AUTOMATED)2021-12-08 14:20:51 Test Item Value Reference Range Interpretation Comments POCT GLU (test code = 1183558479) 189 mg/dL 70-110 H Lab Interpretation (test code = Abnormal 25066-0) [facility] GLUCOSE (AUTOMATED)2021-12-08 02:14:54 Test Item Value Reference Range Interpretation Comments POCT GLU (test code = 3551421074) 276 mg/dL 70-110 H Lab Interpretation (test code = Abnormal 67069-6) [facility] Clinic[facility]cosylated Hemoglobin (A1C)2021-12-08 00:06:25 Test Item Value Reference Range Interpretation Comments HGB A1C (test code = 6.6 % 4-5.7 H 4548-4) RODRIGO (test code = RODRIGO) Reference RangesNormal: <5.7%Prediabetes: 5.7 - 6.4%Diabetes: > 6.5% Lab Interpretation (test Abnormal code = 64943-8) [facility] ClinicMagnesium [id number] 23:59:59 Test Item Value Reference Range Interpretation Comments MAGNESIUM (test code = 6484247427) 2.6 mg/dL 1.7-2.4 H Lab Interpretation (test code = Abnormal 36542-5) [facility] ClinicLipid Panel (Total Cholesterol, Triglycerides, HDL) - [id number] 23:59:59 Test Item Value Reference Range Interpretation Comments CHOL (test code = 106 mg/dL 120-200 L 0810716044) HDL (test code = 20 mg/dL See_Comment L [Automated message] 1072237257) The system [employer] generated this result transmit ros reference range : >=40. The refer ence range was not u sed to interpret th is result as normal/abnormal . HDLC RATIO (test code = See_Comment H [Au tomated message] 0246671476) The system [employer] generated this result transmit ros reference range : <=5.0. The refe rence range was not u sed to interpret th is result as normal/abnormal . TRIG (test code = 86 mg/dL 30-170 4752285634) LDL CHOL (test code = 69 mg/dL See_Comment [Auto mated message] 09964-7) The system [employer] generated this result transmit ros reference range : <=160. The refe rence range was not u sed to interpret th is result as normal/abnormal . VLDL (test code = 17 mg/dL 5-60 8027110035) Lab Interpretation (test Abnormal code = 54613-9) [facility] ClinicPhosphorus [id number] 23:59:39 Test Item Value Reference Range Interpretation Comments PHOSPHORUS (test code = 9592710315) 4.9 mg/dL 2.5-5 Lab Interpretation (test code = Normal 22715-8) [facility] ClinicN-TERMINAL [id number] 21:09:22 Test Item Value Reference Range Interpretation Comments NT-proBNP (test code 1600 pg/mL See_Comment H [Autom ated = 2605525383) message] The system which generated this result transmitted reference range : <=125. The reference range was not used to interpret this result as normal/abnormal . RODRIGO (test code = RODRIGO) Biotin has been reported to cause a negative bias, interpret results relative to patient's use of biotin. Lab Interpretation Abnormal (test code = 94116-5) [facility] ClinicCreatine [id number] 19:56:54 Test Item Value Reference Range Interpretation Comments CK (test code = 9376979809) 28 U/L 33-194 L Lab Interpretation (test code = Abnormal 32419-7) [facility]. METABOLIC PANEL (53397)2021-12-07 16:38:09 Test Item Value Reference Range Interpretation Comments NA (test code = 137 mmol/L 135-145 2354920202) K (test code = 5.4 mmol/L 3.5-5 H 2367978665) CL (test code = 106 mmol/L 98-108 9551776688) CO2 TOTAL (test code = 23 mmol/L 23-31 3563617183) AGAP (test code = 2-16 1185677419) BUN (test code = 49 mg/dL 7-23 H 4779117855) GLUCOSE (test code = 154 mg/dL 70-110 H 2062298404) CREATININE (test code = 2.34 mg/dL 0.6-1.25 H 3710573553) TOTAL BILI (test code = 0.6 mg/dL 0.1-1.5 6307238139) CALCIUM (test code = 8.0 mg/dL 8.6-10.6 L 6146439306) T PROTEIN (test code = 6.1 g/dL 6.3-8.2 L 2900069766) ALBUMIN (test code = 2.5 g/dL 3.5-5 L 4322684970) ALK PHOS (test code = 100 U/L 34-122 1248681123) ALTv (test code = 15 U/L 5-50 1742-6) AST(SGOT) (test code = 23 U/L 13-40 4425916492) eGFR (test code = mL/min/1.73m2 0113930133) RODRIGO (test code = RODRIGO) Association of [...] tests). Lab Interpretation Abnormal (test code = 74012-8) [facility] ClinicACTIV[facility] PARTIAL THRMPLAS [id number] 16:37:12 Test Item Value Reference Range Interpretation Comments APTT Patient (test See_Comment [Automat ed code = 3173-2) message] The system which generated this result transmitted reference range : 23 - 38 Seconds . The reference range was not used to interpr et this result as normal/abnormal . RODRIGO (test code = RODRIGO) The [facility] patient population mean normal value for aPTT is 30 seconds. Lab Interpretation Normal (test code = 94084-8) [facility] ClinicPROTHROMBIN TIME / [id number] 16:35:10 Test Item Value Reference Range Interpretation [...] tions. Lab Interpretation (test Abnormal code = 22691-7) [facility] ClinicCBC WITH [id number] 16:11:30 Test Item Value Reference Range Interpretation [...] (test code = 53.5 fL 38.5-51.6 H 96952-5) RDW-CV (test code = 20.5 % 12.1-15.4 H 788-0) PLT (test code = See_Comment [Automated 777-3) message] The sy stem which generated this result transmitted reference range : 150 - 328 10*3/ ?L. The reference r kelin was not used to interpret this result as normal/abnormal . MPV (test code = 10.0 fL 9.8-13 22053-5) NRBC/100 WBC (test See_Comment [Automat ed code = 5858511524) message] The system which generated this result transmitted reference range : 0.0 - 10.0 /100 WBCs. The refer ence range was not u sed to interpret th is result as normal/abnormal . NRBC x10^3 (test code See_Comment [Auto mated = 7395399458) message] The s ystem which generated this result transmitted reference range : 10*3/?L. The reference range was not used to interpret this result as normal/abnormal . GRAN MAT (NEUT) % 82.5 % (test code = 770-8) IMM GRAN % (test code 0.90 % = 1758085059) LYMPH % (test code = 7.8 % 736-9) MONO % (test code = 7.3 % 5905-5) EOS % (test code = 1.2 % 713-8) BASO % (test code = 0.3 % 706-2) GRAN MAT x10^3(ANC) 5.74 10*3/uL 1.99-6.95 (test code = 3820521217) IMM GRAN x10^3 (test 0.06 10*3/uL 0-0.06 code = 3257877436) LYMPH x10^3 (test code 0.54 10*3/uL 1.09-3.23 L = 731-0) MONO x10^3 (test code 0.51 10*3/uL 0.36-1.02 = 742-7) EOS x10^3 (test code = 0.08 10*3/uL 0.06-0.53 711-2) BASO x10^3 (test code 0.01-0.09 = 704-7) Lab Interpretation Abnormal (test code = 27479-2) [facility]"
[2022-10-14 15:40] LABS: Absolute Lymphocytes (CBC) 0.5 K/uL (0.7-4.9); Hematocrit 34.9 % (39.6-49.0); Lymphocytes % 12.2 % (15.3-44.8); MCV 85.2 fL (80-100); MPV 7.7 fL (7.6-11.3); Platelets 143 thou/uL (152-406); Protime INR 1.13; RBC Red Blood Cell Count 4.09 M/uL (4.33-5.43)
[2022-10-14 15:54] LABS: Potassium 4.9 mEq/L (3.5-5.1)
[2022-10-14] MEDS ORDERED: LIDOCAINE 1% MPF 30 ML VIAL ONE (17:36)
--- NOTE | 2022-10-14 17:53 | EDPHYS ---
Physician Documentation [facility] Name: Mc Willingham Age: 67 yrs Sex: Male : 1955 Arrival Date: 10/14/2022 Time: 14:43 Bed 8 Private MD: ED Physician Justin Martinez HPI: 10/14 15:06 This 67 yrs old Male presents to ER via Ambulatory with complaints of ms3 Abdominal Pain. 15:06 67-year-old male with past medical history of liver cirrhosis presents for abdominal ms3 distention and pain that has been increasing for the last week. Patient states he has a history of liver cirrhosis and has not had a paracentesis in 24 days. Patient was to have a paracentesis performed last week and was unable to make his appointment. Patient also notes he is out of lactulose. Patient rates his pain a 9/10 and describes it as pressure.. Historical: - Allergies: 14:55 No Known Drug Allergies; cm10 - Home Meds: 14:58 Lactulose 30 Oral 2 times per day for constipation [Active]; cm10 - PMHx: 14:55 cirrhosis of liver; cm10 - Immunization history:: Adult Immunizations unknown. - Social history:: Smoking status: Patient denies any tobacco usage or history of. ROS: 15:06 Constitutional: Negative for fever, and chills. Neck: Negative for injury, pain, and ms3 swelling, Cardiovascular: Negative for chest pain, and palpitations. Respiratory: Negative for shortness of breath, cough, wheezing, and pleuritic chest pain. 15:06 MS/Extremity: Negative for injury and deformity, Skin: Negative for injury, rash, and discoloration. 15:06 Abdomen/GI: Positive for abdominal pain. 15:06 All other systems are negative. Exam: 15:06 Constitutional: This is a well developed, well nourished patient who is awake, alert, ms3 and in no acute distress. Head/Face: Normocephalic, atraumatic. Neck: Trachea midline, no cervical lymphadenopathy. Supple, full range of motion without nuchal rigidity, or vertebral point tenderness. No Meningismus. Chest/axilla: Normal chest wall appearance and motion. Nontender with no deformity. Cardiovascular: Regular rate and rhythm with a normal S1 and S2. No gallops, murmurs, or rubs. Normal PMI, no JVD. No pulse deficits. Respiratory: Lungs have equal breath sounds bilaterally, clear to auscultation and percussion. No rales, rhonchi or wheezes noted. No increased work of breathing, no retractions or nasal flaring. 15:06 Abdomen/GI: Inspection: distension, that is severe, Bowel sounds: normal, Palpation: mild abdominal tenderness, in all quadrants. Vital Signs: 14:53 BP 120 / 79; Pulse 64; Resp 18; Temp 98.9; Pulse Ox 100% ; Weight 79.38 kg; Height 5 cm10 ft. 8 in. ; Pain 9/10; 15:22 BP 127 / 88; Pulse 61; Resp 17; Pulse Ox 98% on R/A; rs5 16:00 BP 117 / 80; Pulse 59; Resp 18; Pulse Ox 98% on R/A; rs5 17:00 BP 125 / 82; Pulse 58; Resp 18; Pulse Ox 99% on R/A; rs5 18:00 BP 136 / 76; Pulse 58; Resp 17; Pulse Ox 99% on R/A; rs5 18:52 BP 133 / 72; Pulse 64; Resp 18; Pulse Ox 98% on R/A; rs5 14:53 Body Mass Index 26.61 (79.38 kg, 172.72 cm) cm10 14:53 Pain Scale: Adult cm10 Procedures: 17:55 Paracentesis: The risks and benefits of the procedure were discussed with the patient ms3 or guardian in detail, aseptic technique was employed throughout the procedure, the catheter was placed in the left lower quadrant, appoximately 2.5 liters of fluid was removed, the fluid was normal, the patient tolerated the procedure well, the patient did not experience any apparent complications. MDM: 14:59 Patient medically screened. ms3 15:06 Differential diagnosis: Ascities vs Liver Cirrhosis. ms3 17:55 Data reviewed: vital signs, nurses notes, and as a result, I will discharge patient. ms3 Care significantly affected by the following chronic conditions: Liver Disease. Counseling: I had a detailed discussion with the patient and/or guardian regarding: the historical points, exam findings, and any diagnostic results supporting the discharge/admit diagnosis, lab results, the need for outpatient follow up, to return to the emergency department if symptoms worsen or persist or if there are any questions or concerns that arise at home. Special discussion: I discussed with the patient/guardian in detail that at this point there is no indication for admission to the hospital. It is understood, however, that if the symptoms persist or worsen the patient needs to return immediately for re-evaluation. ED course: Paracentesis performed without complication. Patient to follow-up Dr. Portillo in 2 to 3 days. Patient understands and agrees with plan. All questions were answered. Return precautions discussed to include worsening symptoms, or any other concerns. 10/14 15:00 Order name: CBC with Diff; Complete Time: 15:55 ms3 10/14 15:00 Order name: BMP; Complete Time: 15:55 ms3 10/14 15:00 Order name: PT-INR; Complete Time: 15:55 ms3 10/14 15:02 Order name: ER ABDOMINAL PARACENTESIS EDMS Administered Medications: 18:52 CANCELLED (Physician Discretion): Lidocaine Infiltration (1 %) 10 ml 20 ml Infiltration rs5 once; to bedside Disposition Summary: 10/14/22 17:53 Discharge Ordered Location: Home ms3 Condition: Stable ms3 Diagnosis - Ascities ms3 - Other cirrhosis of liver ms3 Followup: ms3 - With: Jose Portillo MD - When: 2 - 3 days - Reason: Recheck today's complaints Discharge Instructions: - Discharge Summary Sheet ms3 - Cirrhosis ms3 Forms: - Medication Reconciliation Form ms3 - Thank You Letter ms3 - Antibiotic Education ms3 - Prescription Opioid Use ms3 - Patient Portal Instructions ms3 Prescriptions: - Lactulose 10 gram/15 mL Oral Solution - take 30 milliliters by ORAL route 2 times per day; 600 milliliter; Refills: 0, ms3 Product Selection Permitted Signatures: Dispatcher [employer] EDMS Justin Martinez DO DO ms3 Pierce Borja RN RN rs5 Yecenia Carr RN RN cm10 Corrections: (The following items were deleted from the chart) 18:52 17:12 Lidocaine Infiltration (1 %) 10 ml 20 ml Infiltration once; to bedside ordered. rs5 ms3 18:52 18:52 Lidocaine Infiltration (1 %) 10 ml 20 ml Infiltration once; to bedside ordered. rs5 rs5
--- NOTE | 2022-10-14 17:53 | ER ---
Nurse's Notes [facility] Name: Mc Willingham Age: 67 yrs Sex: Male : 1955 Arrival Date: 10/14/2022 Time: 14:43 Bed 8 Private MD: Diagnosis: Ascities;Other cirrhosis of liver Presentation: 10/14 14:53 Chief complaint: Patient states: abdominal pain and distention X2 weeks. Pt states, "I cm10 need to have my stomach drained. It's been 24 days." Pt denies vomiting and diarrhea. Coronavirus screen: Client denies travel out of the [place] in the last 14 days. Ebola Screen: No symptoms or risks identified at this time. Initial Sepsis Screen: Does the patient meet any 2 criteria? No. Patient's initial sepsis screen is negative. Does the patient have a suspected source of infection? No. Patient's initial sepsis screen is negative. Risk Assessment: Do you want to hurt yourself or someone else? Patient reports no desire to harm self or others. Onset of symptoms was October 14, 2022. 14:53 Method Of Arrival: Ambulatory cm10 14:53 Acuity: POPPY 3 cm10 Triage Assessment: 14:56 General: Appears in no apparent distress. comfortable, Behavior is calm, cooperative. cm10 Neuro: No deficits noted. Level of Consciousness is awake, alert, obeys commands, Oriented to person, place, time, situation. Respiratory: No deficits noted. Airway is patent Respiratory effort is even, unlabored, Respiratory pattern is regular, symmetrical. GI: Abdomen is round distended. Historical: - Allergies: 14:55 No Known Drug Allergies; cm10 - Home Meds: 14:58 Lactulose 30 Oral 2 times per day for constipation [Active]; cm10 - PMHx: 14:55 cirrhosis of liver; cm10 - Immunization history:: Adult Immunizations unknown. - Social history:: Smoking status: Patient denies any tobacco usage or history of. Screenin:15 [facility] ED Fall Risk Assessment (Adult) History of falling in the last 3 months, rs5 including since admission No falls in past 3 months (0 pts) Confusion or Disorientation No (0 pts) Intoxicated or Sedated No (0 pts) Impaired Gait No (0 pts) Mobility Assist Device Used No (0 pt) Altered Elimination No (0 pt) Score/Fall Risk Level 0 - 2 = Low Risk. 15:15 Abuse screen: Denies threats or abuse. Nutritional screening: No deficits noted. rs5 Tuberculosis screening: No symptoms or risk factors identified. Assessment: 15:15 General: Appears in no apparent distress. uncomfortable, Behavior is calm, cooperative. rs5 Pain: Complains of pain in abdomen Pain currently is 5 out of 10 on a pain scale. Quality of pain is described as aching, crushing, Pain began 2-3 days ago. Is continuous, Alleviated by repositioning. Neuro: Level of Consciousness is awake, alert, obeys commands, Oriented to person, place, time, situation. Cardiovascular: Heart tones S1 S2 present Rhythm is regular. Respiratory: Airway is patent Respiratory effort is even, unlabored, Respiratory pattern is regular, symmetrical, Breath sounds are clear bilaterally. GI: Abdomen is round distended, one inch laceration with sutures to RLQ noted, Pt states "when I had a paracentesis over one month ago, the site kept leaking fluids and so the provider put in a few stitches." Bowel sounds diminished in abdomen diffusely Abdomen is tender to palpation X 4 quads. : No signs and/or symptoms were reported regarding the genitourinary system. EENT: No signs and/or symptoms were reported regarding the EENT system. Derm: Skin is dry, Skin is pale, Skin temperature is warm. Musculoskeletal: Range of motion: intact in all extremities. 18:00 Reassessment: Patient is alert, oriented x 3, equal unlabored respirations, skin rs5 warm/dry/pink. Pt reports feeling better post paracentesis. Vital Signs: 14:53 BP 120 / 79; Pulse 64; Resp 18; Temp 98.9; Pulse Ox 100% ; Weight 79.38 kg; Height 5 cm10 ft. 8 in. ; Pain 9/10; 15:22 BP 127 / 88; Pulse 61; Resp 17; Pulse Ox 98% on R/A; rs5 16:00 BP 117 / 80; Pulse 59; Resp 18; Pulse Ox 98% on R/A; rs5 17:00 BP 125 / 82; Pulse 58; Resp 18; Pulse Ox 99% on R/A; rs5 18:00 BP 136 / 76; Pulse 58; Resp 17; Pulse Ox 99% on R/A; rs5 18:52 BP 133 / 72; Pulse 64; Resp 18; Pulse Ox 98% on R/A; rs5 14:53 Body Mass Index 26.61 (79.38 kg, 172.72 cm) cm10 14:53 Pain Scale: Adult cm10 ED Course: 14:45 Patient arrived in ED. rg4 14:45 Justin Martinez DO is Attending Physician. ms3 14:55 Triage completed. cm10 14:55 Arm band placed on Patient placed in an exam room, on a stretcher. cm10 15:00 Pierce Borja, RN is Primary Nurse. rs5 15:15 Patient has correct armband on for positive identification. Bed in low position. Call rs5 light in reach. Side rails up X 1. 15:16 Inserted saline lock: 20 gauge in right forearm, using aseptic technique. Blood rs5 collected. 17:23 Provided Education on: Procedure Consent, consent for paracentesis obtained by Dr. Michelle shaw and signed by patient. 17:50 Assist provider with paracentesis which returned 2500 ml's. clear fluid, Set up for rs5 procedure. Performed by Justin Martinez DO Patient tolerated well. 17:53 Jose Portillo MD is Referral Physician. ms3 18:48 Faxed pt clinicals to the following facilities for placement; [address], [facility], [facility], [facility], [facility]. 18:56 IV discontinued, intact, bleeding controlled, No redness/swelling at site. Pressure rs5 dressing applied. Administered Medications: 18:52 CANCELLED (Physician Discretion): Lidocaine Infiltration (1 %) 10 ml 20 ml Infiltration rs5 once; to bedside Outcome: 17:53 Discharge ordered by . ms3 18:57 Condition: stable rs5 18:57 Discharge instructions given to patient, Instructed on discharge instructions, follow rs5 up and referral plans. medication usage. 19:00 Patient left the ED. rs5 19:00 Discharged to home ambulatory, with friend. rs5 Signatures: Priscila Blas, RN RN aa5 Michelle Braun rg4 Justin Martinez DO DO ms3 Zohreh Howard rv1 Pierce Borja, ALISSON VINSON rs5 Bruno, Yecenia, RN RN cm10 Corrections: (The following items were deleted from the chart) 16:01 15:15 Cardiovascular: Heart tones S1 S2 present rs5 aa5 16:01 15:15 GI: Abdomen is round distended, one inch laceration to RLQ. Pt states "when I had aa5 a paracentesis over one month ago, the site kept leaking fluids and so the provider put in a few stitches." Bowel sounds diminished in abdomen diffusely Abdomen is tender to palpation X 4 quads. rs5 16: 15:15 Derm: Skin is dry, Skin is jaundiced, pale, Skin temperature is warm rs5 aa5
[2022-10-14 19:05] VITALS: TEMP 98.9
[2022-10-14 19:14] VITALS: BP 133/72; O2SAT 98
== END 2022-10-14 19:00 | disposition home or self-care (01) ==
LOC: ER 14:43
PROC: 0W9G3ZZ Drainage of Peritoneal Cavity, Percutaneous Approach (ICD-10-PCS; principal; 2022-10-14)
DX: R18.8 Other ascites (principal); K74.69 Other cirrhosis of liver
CPT/HCPCS: 36415; 80048; 85025; 85610; 99284; J2001

== ENCOUNTER 2023-01-03 11:15 | Emergency (ER) | payer SELFPAY ==
--- OUTSIDE RECORDS SUMMARY | 2023-01-03 11:21 | XMS REPORT | Continuity of Care Document ---
:1955 Author Organization [facility] t Address [address] [place] [address] [place] [id number] Care Team Providers Name Role Phone Chica Villalba Primary Care Physician SAMUEL OREILLY Attending Clinician Unavailable SAMUEL OREILLY Attending Clinician Unavailable Danielle Cates Attending Clinician KEV NGUYEN Attending Clinician Unavailable Kev Nguyen DO Attending Clinician JAYDEN GLORIA Attending Clinician Unavailable Jayden Gloria MD Attending Clinician LEILA CHAPMAN Attending Clinician Unavailable MIKE COPPOLA Attending Clinician Unavailable Mike Pulido Attending Clinician Leila Chapman MD Attending Clinician Doctor Unassigned, [place] Attending Clinician Unavailable JOSÉ MIGUEL HUMPHRIES Attending Clinician Unavailable JOSÉ MIGUEL HUMPHRIES Attending Clinician Unavailable José Miguel Humphries DO Attending Clinician JEREMIAS MOHR Attending Clinician Unavailable JEREMIAS MOHR Attending Clinician Unavailable GEETA YOUNG Attending Clinician Unavailable Geeta Young DO Attending Clinician GINI EAST Attending Clinician Unavailable Gini East MD Attending Clinician Ahmet NIKHILLila Attending Clinician JAQUI ROMANO Attending Clinician Unavailable Jaqui Martin Attending Clinician MAGNOLIA GIBBS Attending Clinician Unavailable Bernie CESAR, [place] Claros Attending Clinician Analia Fragoso LVN Attending Clinician AUGUSTIN JEAN Attending Clinician Unavailable Chilo Oliva MD Attending Clinician Augustin Jean MD Attending Clinician MIKE HOFFMAN Attending Clinician Unavailable Mike Hoffman MD Attending Clinician ALISHA CHA Attending Clinician Unavailable Alisha Cha DO Attending Clinician JONNA LANCE Attending Clinician Unavailable Jonna Lance DO Attending Clinician ANNABELLE TEMPLE Attending Clinician Unavailable Annabelle Shore Attending Clinician MIKE COPPOLA Admitting Clinician Unavailable GEETA YOUNG Admitting Clinician Unavailable Geeta Young DO Admitting Clinician JAQUI ROMANO Admitting Clinician Unavailable AUGUSTIN JEAN Admitting Clinician Unavailable Augustin Jean MD Admitting Clinician ALISHA CHA Admitting Clinician Unavailable Alisha Cha DO Admitting Clinician Payers Payer Name Policy Type Policy Number Effective Date Expiration Date S [facility] MEDICAID SSI PENDING 2022 2022 PENDING 00:00:00 [...] chronic 3-30 ity of kidney kidney 00:00: [place] disease disease 00 Medical Branch Ascites Ascites Disease Active 2021-03 Univers 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 ity of alcoholic alcoholic 00:00: Radha gardner cirrhosis cirrhosis 00 Medi rosario Branch Alcoholic Alcoholic Disease Active 2021-03 Uni vers cirrhosis cirrhosis 0-18 ity of of liver of liver 00:00: [place] with with 00 Medical ascites ascites Branch 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 liver 9-30 ity of 00:00: 00 Medical Branch Tense Tense Disease Active Univers ascites ascites 9-30 ity of 00:00: [place] 00 Medical Branch No known No known Disease Unive rs active active ity of problems problems [facility] Branch Allergies, Adverse Reactions, Alerts Allergy Allergy Status Severity Reaction(s) Onset Inactive Treating Comm ents Source Name Type Date Date Clinician NO KNOWN Drug Active Univers ALLERGIE Class ity of S [place] [facility] Social History Social Habit Start Date Stop Date Quantity Comments Source History SDOH Social Unive rsity of Connections [facility] Med ical Together Branch History SDOH Social Unive rsity of Connections [facility] History SDOH Social Unive rsity of Connections [place] [facility] Membership Branch History SDOH Social Unive rsity of Connections [place] [facility] Meetings Branch Gender identity Universit y of [facility] [place] Sexual orientation Univer sity of [place] [facility] History of tobacco Cigarette Smoker University of use [facility] Branch Alcohol intake 2023-01-03 2023-01-03 Current drinker Unive rsity of 00:00:00 00:00:00 of alcohol [place] [facility] (finding) Branch Exposure to 2022-05-26 2022-06-05 Not sure University of SARS-CoV-2 (event) 00:00:00 06:46:00 [place] [facility] History SDOH 2022-04-11 2022-04-11 1 University o f Alcohol Frequency 00:00:00 00:00:00 [place] M edical Branch History SDOH 2022-04-11 2022-04-11 0 University o f Alcohol Std Drinks 00:00:00 00:00:00 [place] [facility] History SDOH 2022-04-11 2022-04-11 1 University o f Alcohol Binge 00:00:00 00:00:00 [place] Medic al Branch History SDOH Social 2022-04-11 2022-04-11 5 Unive rsity of Connections Phone 00:00:00 00:00:00 [facility] edical Branch History SDOH Social 2022-04-11 2022-04-11 6 Unive rsity of Connections Living 00:00:00 00:00:00 [place] [facility] History SDOH 2022-04-11 2022-04-11 0 University o f Physical Activity 00:00:00 00:00:00 [facility] edical DPW Branch History SDOH 2022-04-11 2022-04-11 0 University o f Physical Activity 00:00:00 00:00:00 [place] M edical MPS Branch History SDOH 2022-04-11 2022-04-11 5 University o f Financial 00:00:00 00:00:00 [place] [facility] History SDOH Food 2022-04-11 2022-04-11 1 Univers ity of Worry 00:00:00 00:00:00 [place] [facility] History SDOH Food 2022-04-11 2022-04-11 1 Univers ity of Scarcity 00:00:00 00:00:00 [place] [facility] History SDOH 2022-04-11 2022-04-11 2 University o f Transport Med 00:00:00 00:00:00 [place] Medic al Branch History SDOH 2022-04-11 2022-04-11 2 University o f Transport Non-Med 00:00:00 00:00:00 [facility] edical Branch History of Social 2022-04-11 2022-04-11 Univers ity of function 00:00:00 00:00:00 [facility] [place] Tobacco use and 2021-12-07 2021-12-07 Smokeless Universit y of exposure 00:00:00 00:00:00 tobacco non-user [facility] dical Branch Education 2021-12-07 2021-12-07 14 University of 00:00:00 00:00:00 [facility] [place] Tobacco Comment 2021-12-07 2021-12-07 Quit 3-4 years Unive rsity of 00:00:00 00:00:00 [facility] [place] Sex Ass[birth year] At [birth year] Universit y of 00:00:00 00:00:00 [facility] [place] Smoking Status Start Date Stop Date Source Tobacco smoking [facility] [place] consumption unknown Medical Bran ch Ex-smoker 2021-12-07 00:00:00 2021-12-07 [facility] 00:00:00 Medical Branch Medications Ordered Filled Start Stop Current Ordering Indication Dosage Frequency Signature Comments Components Source Medication Medication Date Date Medication? Clinician (SIG) Name Name furosemide 2022-03- Yes [id number] 40mg Take 1 Univers 40 mg 0-04 11-04 tablet by ity of tablet 00:00: 04:59 mouth [place] 00 :00 every Medical morning Branch and evening for 30 days. furosemide 2022-03- Yes [id number] 40mg Take 1 Univers 40 mg 0-04 11-04 tablet by ity of tablet 00:00: 04:59 mouth [place] 00 :00 every Medical morning Branch and evening for 30 days. lactulose 2022-0 Yes [id number] 20g Take 1 U nivers 20 gram 9-14 Packet by ity of packet 00:00: mouth in [place] 00 the Medical morning Branch and 1 Packet in the evening. lactulose 2022-0 Yes [id number] 20g Take 1 U nivers 20 gram 9-14 Packet by ity of packet 00:00: mouth in [place] 00 the Medical morning Branch and 1 Packet in the evening. lactulose 2022-0 Yes [id number] 20g Take 1 U nivers 20 gram 9-14 Packet by ity of packet 00:00: mouth in [place] 00 the Medical morning Branch and 1 Packet in the evening. lactulose 2022-0 Yes [id number] 20g Take 1 U nivers 20 gram 8-19 Packet by ity of packet 00:00: mouth in [place] 00 the Medical morning Branch and 1 Packet in the evening. lactulose 2022- No [id number] 20g Take 1 Univers 20 gram 8-19 09-14 Packet by ity of packet 00:00: 00:00 mouth in [place] 00 :00 the Medical morning Branch and 1 Packet in the evening. pantoprazol 2022-0 Yes 40mg Take 1 Univ ers e 40 mg EC 3-30 tablet by ity of tablet 14:07: mouth in [place] [address] the Medical morning Branch and 1 tablet in the evening. pantoprazol 2022-0 Yes 40mg Take 1 Univ ers e 40 mg EC 3-30 tablet by ity of tablet 14:07: mouth in [place] [address] the Medical morning Branch and 1 tablet in the evening. pantoprazol 2023-0 Yes 40mg Take 1 Univ ers e 40 mg EC 3-30 tablet by ity of tablet 14:07: mouth in [place] [address] the Medical morning Branch and 1 tablet in the evening. pantoprazol 2023-0 Yes 40mg Take 1 Univ ers e 40 mg EC 3-30 tablet by ity of tablet 14:07: mouth in [place] [address] the Medical morning Branch and 1 tablet in the evening. pantoprazol 2023-0 Yes 40mg Take 1 Univ ers e 40 mg EC 3-30 tablet by ity of tablet 14:07: mouth in [place] [address] the Medical morning Branch and 1 tablet in the evening. pantoprazol 2023-0 Yes 40mg Take 1 Univ ers e 40 mg EC 3-30 tablet by ity of tablet 14:07: mouth in [place] [address] the Medical morning Branch and 1 tablet in the evening. pantoprazol 2023-0 Yes 40mg Take 1 Univ ers e 40 mg EC 3-30 tablet by ity of tablet 14:07: mouth in [place] [address] the Medical morning Branch and 1 tablet in the evening. pantoprazol 2023-0 Yes 40mg Take 1 Univ ers e 40 mg EC 3-30 tablet by ity of tablet 14:07: mouth in [place] [address] the Medical morning Branch and 1 tablet in the evening. furosemide 2023-0 Yes 40mg Take 1 Unive rs 40 mg 3-30 tablet by ity of tablet 00:00: mouth [place] [address] every Medical morning Branch and evening. lactulose 2023-0 Yes [id number] 30mL Take 30 mL Univers 10 gram/15 3-30 by mouth ity o f mL solution 00:00: in the [place] [facility] morning. Medical Branch sulfamethox 2023-0 Yes [id number] 1{tbl} Take 1 Univers azole-trime 3-30 tablet by ity of thoprim 00:00: mouth in [place] (BACTRIM) 00 the Medical 400-80 mg morning. Branch per tablet spironolact 2023-0 Yes 200mg Take 8 Uni vers one 25 mg 3-30 tablets by ity of tablet 00:00: mouth in [place] 00 the Medical morning. Branch furosemide 2023-0 Yes 40mg Take 1 Unive rs 40 mg 3-30 tablet by ity of tablet 00:00: mouth [place] [address] every Medical morning Branch and evening. lactulose 2023-0 Yes [id number] 30mL Take 30 mL Univers 10 gram/15 3-30 by mouth ity o f mL solution 00:00: in the morning. Medical Branch sulfamethox 2023-0 Yes [id number] 1{tbl} Take 1 Univers azole-trime 3-30 tablet by ity of thoprim 00:00: mouth in [place] [facility] 00 the Medical 400-80 mg morning. Branch per tablet spironolact 2023-0 Yes 200mg Take 8 Uni vers one 25 mg 3-30 tablets by ity of tablet 00:00: mouth in [place] 00 the Medical morning. Branch furosemide 2023-0 Yes 40mg Take 1 Unive rs 40 mg 3-30 tablet by ity of tablet 00:00: mouth [place] 00 every Medical morning Branch and evening. lactulose 2023-0 Yes [id number] 30mL Take 30 mL Univers 10 gram/15 3-30 by mouth ity o f mL solution 00:00: in the morning. Medical Branch sulfamethox 2023-0 Yes [id number] 1{tbl} Take 1 Univers azole-trime 3-30 tablet by ity of thoprim 00:00: mouth in [place] (BACTRI) 00 the Medical 400-80 mg morning. Branch per tablet spironolact 2023-0 Yes 200mg Take 8 Uni vers one 25 mg 3-30 tablets by ity of tablet 00:00: mouth in [place] 00 the Medical morning. Branch furosemide 2023-0 Yes 40mg Take 1 Unive rs 40 mg 3-30 tablet by ity of tablet 00:00: mouth [place] 00 every Medical morning Branch and evening. lactulose 2023-0 Yes [id number] 30mL Take 30 mL Univers 10 gram/15 3-30 by mouth ity o f mL solution 00:00: in the morning. Medical Branch sulfamethox 2023-0 Yes [id number] 1{tbl} Take 1 Univers azole-trime 3-30 tablet by ity of thoprim 00:00: mouth in [place] ([facility]CTRIM) 00 the Medical 400-80 mg morning. Branch per tablet spironolact 2023-0 Yes 200mg Take 8 Uni vers one 25 mg 3-30 tablets by ity of tablet 00:00: mouth in [place] 00 the Medical morning. Branch furosemide 2023-0 Yes 40mg Take 1 Unive rs 40 mg 3-30 tablet by ity of tablet 00:00: mouth [place] 00 every Medical morning Branch and evening. sulfamethox 2023-0 Yes [id number] 1{tbl} Take 1 Univers azole-trime 3-30 tablet by ity of thoprim 00:00: mouth in [place] ([facility] 00 the Medical 400-80 mg morning. Branch per tablet spironolact 2023-0 Yes 200mg Take 8 Uni vers one 25 mg 3-30 tablets by ity of tablet 00:00: mouth in [place] 00 the Medical morning. Branch furosemide 2023-0 Yes 40mg Take 1 Unive rs 40 mg 3-30 tablet by ity of tablet 00:00: mouth [place] 00 every Medical morning Branch and evening. sulfamethox 2023-0 Yes [id number] 1{tbl} Take 1 Univers azole-trime 3-30 tablet by ity of thoprim 00:00: mouth in [place] ([facility]) 00 the Medical 400-80 mg morning. Branch per tablet spironolact 2023-0 Yes 200mg Take 8 Uni vers one 25 mg 3-30 tablets by ity of tablet 00:00: mouth in [place] 00 the Medical morning. Branch sulfamethox 2023-0 Yes [id number] 1{tbl} Take 1 Univers azole-trime 3-30 tablet by ity of thoprim 00:00: mouth in [place] ([facility] 00 the Medical 400-80 mg morning. Branch per tablet spironolact 2023-0 Yes 200mg Take 8 Uni vers one 25 mg 3-30 tablets by ity of tablet 00:00: mouth in [place] 00 the Medical morning. Branch sulfamethox 2023-0 Yes [id number] 1{tbl} Take 1 Univers azole-trime 3-30 tablet by ity of thoprim 00:00: mouth in [place] ([facility]) 00 the Medical 400-80 mg morning. Branch per tablet spironolact 2023-0 Yes 200mg Take 8 Uni vers one 25 mg 3-30 tablets by ity of tablet 00:00: mouth in [place] 00 the Medical morning. Branch furosemide 2023-0 2023- No 40mg Take 1 Univ ers 40 mg 3-30 10-04 tablet by ity of tablet 00:00: 00:00 mouth [place] 00 :00 every Medical morning Branch and evening. lactulose 2022-0 3- No [id number] 30mL Take 30 mL Univers 10 gram/15 06-06 by mouth ity of mL solution 00:00: 00:00 in the [place] 00 :00 morning. Medical Branch traMADoL 50 2022-0 Yes [id number] 50mg [...] 25 g, IV Unive rs (ALBUMINAR 05-31 Infusion, ity of 25%) 25 % 22:08: 00:02 ONCE, 1 [place] injection 00 :[place] dose, On Medica l 25 g Fri Branch 05/31/22 at 1715, 100 mL
Marge cation: HEPATORENA L SYNDROME (DIAGNOSIS )
Comme nts: Dosin-8 g/L of ascitic fluid removed lactulose 2022-0 Yes [id number] 30mL Take 30 mL Univers 10 gram/15 3-24 by mouth ity o f mL oral 00:00: in the [place] solution 00 morning. Medical Branch lactulose 2022-0 Yes [id number] 30mL Take 30 mL Univers 10 gram/15 3-24 by mouth ity o f mL oral 00:00: in the [place] solution 00 morning. Medical Branch lactulose 2022-0 Yes [id number] 30mL Take 30 mL Univers 10 gram/15 3-24 by mouth ity o f mL oral 00:00: in the [place] solution 00 morning. Medical Branch lactulose 2022-0 3- No [id number] 30mL Take 30 mL Univers 10 gram/15 3-24 03-30 by mouth ity of mL oral 00:00: 00:00 in the [place] solution 00 :00 morning. [facility] Branch lactulose 3-0 2023- No [id number] 30mL Take 30 mL Univers 10 gram/15 3-24 03-30 by mouth ity of mL oral 00:00: 00:00 in the [place] solution 00 :00 morning. Medical Branch lactulose 2022- No [id number] 30mL Take 30 mL Univers 10 gram/15 05-3130 by mouth ity of mL oral 00:00: 00:00 in the [place] solution 00 :00 morning. Medical Branch pantoprazol 2022-0 Yes 40mg Take 40 mg Univers e 40 mg EC 2-02 by mouth ity o f tablet 17:45: in the [place] [address] morning Medical and 40 mg Branch in the evening. pantoprazol 2022-0 Yes 40mg Take 40 mg Univers e 40 mg EC 2-02 by mouth ity o f tablet 17:45: in the [place] [address] morning Medical and 40 mg Branch in the evening. pantoprazol 2022-0 Yes 40mg Take 40 mg Univers e 40 mg EC 2-02 by mouth ity o f tablet 17:45: in the [place] [address] morning Medical and 40 mg Branch in the evening. pantoprazol 2022-0 Yes 40mg Take 40 mg Univers e 40 mg EC 2-02 by mouth ity o f tablet 17:45: in the [address] Medical and 40 mg Branch in the evening. cefTRIAXone 2022- No 2000mg 2,000 mg, Univers (ROCEPHIN) 04-11-09 Intravenou it y of 2,000 mg in [...] Dosin-8 g/L of ascitic fluid removed furosemide 0 2022- No 40mg Take 40 mg Univers 40 mg 04-11 by mouth ity of tablet 15:02: 00:00 every [place] 42 :00 morning Medical and Branch evening. spironolact 0 2022- No 25mg Take 25 mg Univers one 04-11 by mouth ity of (ALDACTONE) 15:02: 00:00 in the [facility] as 25 mg 42 :00 morning. Medical tablet Branch spironolact 0 Yes 25mg 25 mg, Univ ers one [...] 04-11 Oral, ity of (TYLENOL) 02:53: Q6HPRN, [place] tablet 650 20 Starting Medic al mg on Fri Branch 04/10/22 at 2052, Until Discontinu ed, Routine, Pain (scale 1-3) sulfamethox 2022- No [id number] 1{tbl} Take 1 Univers azole-trime 04-11 tablet by i ty of thoprim 00:00: 05:59 mouth in [place] (BACTRIM 00 :00 the Medical DS) 800-160 morning Branc h mg per for 30 tablet days. furosemide 0 2022- No [id number] 40mg Take 1 Univers 40 mg 04-11 tablet by ity of tablet 00:00: 05:59 mouth [place] 00 :00 every Medical morning Branch and evening for 30 days. spironolact 202-0 2023- No [id number] 200mg Take 2 Univers one 04-11 [id number] tablets by ity of (ALDACTONE) 00:00: 05:59 mouth [place] 100 mg 00 :00 the Medical tablet morning Branch for 30 days. furosemide 3-0 2023- No 40mg Take 1 Univ ers 40 mg 03-20 tablet by ity of tablet 00:00: 00:00 mouth. [place] 00 :00 Medical Branch spironolact 2023-0 2023- No 25mg Take 1 Uni vers one 25 mg 03-20 tablet by ity of tablet 00:00: 00:00 mouth. [place] 00 :00 Medical Branch furosemide 2022-0 2023- No 40mg Take 1 Univ ers 40 mg 03-20 tablet by ity of tablet 00:00: 00:00 mouth. [place] 00 :00 Medical Branch spironolact 2023-0 2023- No 25mg Take 1 Uni vers one 25 mg 03-20 tablet by ity of tablet 00:00: 00:00 mouth. [place] 00 :00 Medical Branch furosemide 2022-0 3- No 40mg Take 1 Univ ers 40 mg 03-20 tablet by ity of tablet 00:00: 00:00 mouth. [place] 00 :00 Medical Branch spironolact 3-0 3- No 25mg Take 1 Uni vers one 25 mg 03-20 tablet by ity of tablet 00:00: 00:00 mouth. [place] 00 :00 Medical Branch furosemide 2021-1 Yes 40mg Take 40 mg U nivers 40 mg 0-21 by mouth ity of tablet 13:09: every [place] [address] morning Medical and Branch evening. furosemide 2021- Yes 40mg Take 40 mg U nivers 40 mg 0-21 by mouth ity of tablet 13:09: every [place] [address] morning Medical and Branch evening. furosemide 2021- Yes 40mg Take 40 mg U nivers 40 mg 0-21 by mouth ity of tablet 13:09: every [place] [address] morning Medical and Branch evening. furosemide 2021- Yes 40mg Take 40 mg U nivers 40 mg 0-21 by mouth ity of tablet 13:09: every [place] [address] morning Medical and Branch evening. furosemide 2-1 Yes 40mg Take 40 mg U nivers 40 mg 0-21 by mouth ity of tablet 13:09: every [place] [address] morning Medical and Branch evening. furosemide 2022-1 Yes 40mg Take 40 mg U nivers 40 mg 0-21 by mouth ity of tablet 13:09: every [place] [address] morning Medical and Branch evening. furosemide 2022-1 Yes 40mg Take 40 mg U nivers 40 mg 0-21 by mouth ity of tablet 13:09: every [place] [address] morning Medical and Branch evening. furosemide 2022-1 Yes 40mg Take 40 mg U nivers 40 mg 0-21 by mouth ity of tablet 13:09: every [place] [address] morning Medical and Branch evening. furosemide 2022-1 Yes 40mg Take 40 mg U nivers 40 mg 0-21 by mouth ity of tablet 13:09: every [place] [address] morning Medical and Branch evening. furosemide 2-1 Yes 40mg Take 40 mg U nivers 40 mg 0-21 by mouth ity of tablet 13:09: every [place] [address] morning Medical and Branch evening. furosemide 2021-1 Yes 40mg Take 40 mg U nivers 40 mg 0-21 by mouth ity of tablet 13:09: every [place] [address] morning Medical and Branch evening. pantoprazol 2021- Yes 40mg Take 40 mg Univers e 40 mg EC 0-21 by mouth ity o f tablet 13:09: in the [place] [address] morning Medical and 40 mg Branch in the evening. pantoprazol 2022-1 Yes 40mg Take 40 mg Univers e 40 mg EC 0-21 by mouth ity o f tablet 13:09: in the [place] [address] morning Medical and 40 mg Branch in the evening. pantoprazol 2022-1 Yes 40mg Take 40 mg Univers e 40 mg EC 0-21 by mouth ity o f tablet 13:09: in the [place] [address] morning Medical and 40 mg Branch in the evening. pantoprazol 2022-1 Yes 40mg Take 40 mg Univers e 40 mg EC 0-21 by mouth ity o f tablet 13:09: in the [place] [address] morning Medical and 40 mg Branch in the evening. pantoprazol 2022-1 Yes 40mg Take 40 mg Univers e 40 mg EC 0-21 by mouth ity o f tablet 13:09: in the [place] [address] morning Medical and 40 mg Branch in the evening. pantoprazol 2021-03 Yes 40mg Take 40 mg Univers e 40 mg EC 0-21 by mouth ity o f tablet 13:09: in the [place] [address] morning Medical and 40 mg Branch in the evening. pantoprazol 2021-03 Yes 40mg Take 40 mg Univers e 40 mg EC 0-21 by mouth ity o f tablet 13:09: in the [place] [address] morning Medical and 40 mg Branch in the evening. pantoprazol 2021-03 Yes 40mg Take 40 mg Univers e 40 mg EC 0-21 by mouth ity o f tablet 13:09: in the [place] [address] morning Medical and 40 mg Branch in the evening. pantoprazol 2021-03 Yes 40mg Take 40 mg Univers e 40 mg EC 0-21 by mouth ity o f tablet 13:09: in the [place] [address] morning Medical and 40 mg Branch in the evening. pantoprazol 2021-03 Yes 40mg Take 40 mg Univers e 40 mg EC 0-21 by mouth ity o f tablet 13:09: in the [address] Medical and 40 mg Branch in the evening. pantoprazol 2021-03 Yes 40mg Take 40 mg Univers e 40 mg EC 0-21 by mouth ity o f tablet 13:09: in the [place] [address] morning Medical and 40 mg Branch in the evening. albumin 2021-03- No [id number] 50g 50 g, IV Univers (ALBUMINAR 0-21 [...] 00 First dose Med ical mg on Fri Branch 12/26/21 at 0900, Until Discontinu ed, Routine docusate 2021-03 Yes 100mg 100 mg, Unive rs (COLACE) 0-19 Oral, BID, ity o f capsule 100 01:00: First dose [place] mg 00 on Fri/18/22 Branch at 2000, Until Discontinu ed, Routine furosemide 2021-03 Yes 40mg 40 mg, Unive rs (LASIX) 0-19 Slow IV ity of injection 01:00: Push, [place] 40 mg 00 Q12H, Medical First dose Branch on [facility] 12/25/21 at 2000, Until Discontinu ed, Routine Sliding 2021-03 Yes Subcutaneo Univ ers Scale 0-18 us, TID ity of Insulin - 22:00: MEALS+HS, [place] Lispro 00 First dose Medical (HumaLOG) + on [facility] 12/25/21 Testing at 1700, Until Discontinu ed, Routine enoxaparin 2021-03 Yes 30mg 30 mg, Unive rs (LOVENOX) 0-18 Subcutaneo ity of injection 22:00: [place], [place], [place] 30 mg 00 First dose Medical on [facility] 12/25/21 at 1700, Until Discontinu ed, Routine glucagon 2021-03 Yes 1mg 1 mg, Univers (GLUCAGEN 0-18 Intramuscu ity of DIAGNOSTIC 21:33: [place], [place]N, [place] KIT) 19 Starting Medical injection 1 on [facility] mg 12/25/21 at 1633, Until Discontinu ed, NAYAN, Blood Glucose < or = 70 mg/dL and patient is unable to swallow or has mental changes. dextrose 50 2021-03 Yes 25mL 25 mL, Univ ers % in water 0-18 Slow IV ity of (D50W) 21:33: Push, PRN, [place] injection 19 Starting Medica l 25 mL on [facility] 12/25/21 at 1633, Until Discontinu ed, NAYAN, Blood Glucose < or = 70 mg/dL and patient is unable to swallow or has mental status changes. ondansetron 2021-03 Yes 4mg 4 mg, Slow Univers (ZOFRAN 0-18 IV Push, ity of (PF)) 21:33: Q6HPRN, [place] injection 4 11 Starting Medi rosario mg on [facility] 12/25/21 at 1633, Until Discontinu ed, Routine, Nausea and Vomiting (N/V) acetaminoph 2021-03 Yes 650mg 650 mg, Un piedad en 0-18 Oral, ity of (TYLENOL) 21:32: Q6HPRN, [place] tablet 650 53 Starting Medic al mg on e Branch 12/25/21 at 1632, Until Discontinu ed, Routine, Pain (scale 1-3) pantoprazol 2021-03 Yes 40mg Take 40 mg Univers e 40 mg EC 0-02 by mouth ity o f tablet 16:36: in the [place] [address] morning Medical and 40 mg Branch in the evening. furosemide 2021-03 Yes 40mg Take 40 mg U nivers 40 mg 0-02 by mouth ity of tablet 16:36: every [place] [address] morning Medical and Branch evening. pantoprazol 2021-03 Yes 40mg Take 40 mg Univers e 40 mg EC 0-02 by mouth ity o f tablet 16:36: in the [place] [address] morning Medical and 40 mg Branch in the evening. furosemide 2021-03 Yes 40mg Take 40 mg U nivers 40 mg 0-02 by mouth ity of tablet 16:36: every [place] [address] morning Medical and Branch evening. spironolact 2021-03- No 25mg Take 25 mg Univers one 25 mg 0-02 1002 by mouth ity o f tablet 13:32: 00:00 in the [place] 31 :00 morning Medical and 25 mg Branch in the evening. spironolact 2021-03- No [id number] 25mg Take 1 Univers one 25 mg 0-02 11-02 tablet by ity of tablet 00:00: 04:59 mouth in [place] 00 :00 the Medical morning Branch for 30 days. spironolact 2021-03- No [id number] 25mg Take 1 Univers one 25 mg 0-02 11-02 tablet by ity of tablet 00:00: 04:59 mouth in [place] 00 :00 the Medical morning Branch for 30 days. spironolact 2021-03- No [id number] 25mg Take 1 Univers one 25 mg 0-02 11-02 tablet by ity of tablet 00:00: 04:59 mouth in [place] 00 :00 the Medical morning Branch for 30 days. spironolact 2021-03- No [id number] 25mg Take 1 Univers one 25 mg 0-02 11-02 tablet by ity of tablet 00:00: 04:59 mouth in [place] 00 :00 the Medical morning Branch for 30 days. midodrine 2021-03 Yes 5mg 5 mg, Univers (PROAMATINE 0-01 Oral, TID, it y of ) tablet 5 19:00: First dose [place] 00 on [facility] 12/08/21 at Branch 1400, Until Discontinu ed, Routine foLIC acid 2021-03- No 1mg 1 mg, Unive rs (FOLATE) 0- 10- Oral, ity of tablet 1 mg 16:15: 17:09 ONCE, 1 [place] 00 :[place] dose, On Medical [facility] 12/08/21 at 1115, Routine thiamine 2021-03 Yes 100mg 100 mg, Unive rs (VITAMIN 0-01 Oral, ity of B1) tablet 15:30: DAILY, [place] 100 mg 00 First dose Medical on [facility] 12/08/21 at 1030, Until Discontinu ed, Routine furosemide 2021-03 Yes 40mg 40 mg, Unive rs (LASIX) 0-01 Oral, ity of tablet 40 14:00: DAILY, [place] mg 00 First dose Medical on [facility] 12/08/21 at 0900, Until Discontinu ed, Routine spironolact 2021-03- No 100mg 100 mg, U nivers one 0-12-08 Oral, ity of (ALDACTONE) 14:00: 15:45 DAILY, [place] tablet 100 00 :15 First dose Med ical mg on [facility] 12/08/21 at 0900, Until Discontinu ed, Routine traMADoL 2021-03 Yes 50mg 50 mg, Univers (ULTRAM) 0-01 Oral, ity of tablet 50 10:49: Q6HPRN, [place] mg 22 Starting Medical on [facility] 12/08/21 at 0549, Until Discontinu ed, [...] Until Discontinu ed, Routine albumin 2021- No [id number] 25g 25 g, IV Univers (ALBUMINAR 12-07 Infusion, ity of 25%) 25 % 20:15: 02:01 ONCE, [place] injection [place] :00 dose, On Medica l 25 g Fri Branch 12/07/21 at 1515, 100 mL
Marge cation: HEPATORENA L SYNDROME (DIAGNOSIS )
Comme nts: Dosin-8 g/L of ascitic fluid removed furosemide 2021- No [id number] 40mg 40 mg, Univers (LASIX) 12-07 Slow [...] 9-16 medication it y of 13:38: s [address] No known 0 No No known Unive rs medications 8-11 medication it y of 11:47: s [address] No known No No known Unive rs medications 8-11 medication it y of 11:47: s [address] No known 2021-0 No No known Unive rs medications 8-11 medication it y of 11:47: s [address] Vital Signs Vital Name Observation Time Observation Value Comments Source Systolic blood 2023-01-03 15:01:00 148 mm[Hg] Univer sity of pressure [facility] [place] Diastolic blood 2023-01-03 15:01:00 95 mm[Hg] Unive rsity of pressure [facility] [place] Heart rate 2023-01-03 15:01:00 74 /min Universi ty of [facility] [place] Respiratory rate 2023-01-03 15:01:00 16 /min Univ ersity of [place] [facility] Oxygen saturation in 2023-01-03 15:01:00 98 /min University of Arterial blood by [place] [facility]i [facility] Pulse oximetry Branch Body temperature 2023-01-03 14:57:00 36.72 Shabnam Univ ersity [facility] [place] [facility] Body height 2023-01-03 14:57:00 172.7 cm Universi ty [facility] [place] [facility] Body weight 2023-01-03 14:57:00 82.464 kg [facility]i ty [facility] [place] [facility] BMI 2023-01-03 14:57:00 27.64 kg/m2 [facility] ty [facility] [place] [facility] Systolic blood 2022-12-12 01:50:00 152 mm[Hg] Univer sity of pressure [place] [facility] Diastolic blood 2022-12-12 01:50:00 76 mm[Hg] Unive rsity of pressure [place] [facility] Heart rate 2022-12-12 01:50:00 75 /min [facility]i ty [facility] [place] [facility] Respiratory rate 2022-12-12 01:50:00 15 /min Univ ersity [facility] [place] [facility] Oxygen saturation in 2022-12-12 01:50:00 100 /min University of Arterial blood by [place] [employer] [facility] Pulse oximetry Branch Body temperature 2022-12-11 20:00:00 36.61 Shabnam Univ ersity [facility] [place] [facility] Body weight 2022-12-11 20:00:00 80.287 kg Universi ty [facility] [place] [facility] BMI 2022-12-11 20:00:00 26.91 kg/m2 [facility] ty [facility] [place] [facility] Systolic blood 2022-11-21 20:45:00 128 mm[Hg] Univer sity of pressure [place] [facility] Diastolic blood 2022-11-21 20:45:00 71 mm[Hg] Unive rsity of pressure [place] [facility] Heart rate 2022-11-21 20:45:00 74 /min Universi ty [facility] [place] [facility] Respiratory rate 2022-11-21 20:45:00 12 /min Univ ersity [facility] [place] [facility] Oxygen saturation in 2022-11-21 20:45:00 99 /min University of Arterial blood by [place] [employer] [facility] Pulse oximetry Branch Body temperature 2022-11-21 19:32:00 35.67 Shabnam Univ ersity [facility] [place] [facility] Body height 2022-11-21 19:32:00 172.7 cm [facility]i ty [facility] [place] [facility] Body weight 2022-11-21 19:32:00 77.111 kg [facility]i ty [facility] [place] [facility] BMI 2022-11-21 19:32:00 25.85 kg/m2 [facility] [place] [facility] Systolic blood 2022-10-26 21:50:00 135 mm[Hg] Univer sity of pressure [place] [facility] Diastolic blood 2022-10-26 21:50:00 74 mm[Hg] Unive rsity of pressure [place] [facility] Heart rate 2022-10-26 21:50:00 61 /min Universi ty [facility] [place] [facility] Respiratory rate 2022-10-26 21:50:00 18 /min Univ ersity [facility] [place] [facility] Oxygen saturation in 2022-10-26 21:50:00 100 /min University of Arterial blood by [place] [employer] [facility] Pulse oximetry Branch Body temperature 2022-10-26 17:37:00 36.78 Shabnam Univ ersity [facility] [place] [facility] Body weight 2022-10-26 17:37:00 79.516 kg [facility]i ty [facility] [place] [facility] BMI 2022-10-26 17:37:00 26.65 kg/m2 [facility] ty [facility] [place] [facility] Systolic blood 2022-08-12 16:30:00 124 mm[Hg] Univer sity of pressure [place] [facility] Diastolic blood 2022-08-12 16:30:00 67 mm[Hg] Unive rsity of pressure [place] [facility] Heart rate 2022-08-12 16:30:00 66 /min [facility]i ty [facility] [place] [facility] Respiratory rate 2022-08-12 16:30:00 17 /min Univ ersity [facility] [place] [facility] Oxygen saturation in 2022-08-12 16:30:00 99 /min University of Arterial blood by [place] Medi [facility] Pulse oximetry Branch Body temperature 2022-08-12 15:05:00 37 Shabnam Univ [facility] [place] [facility] Body weight 2022-08-12 15:05:00 80.287 kg [facility]i ty [facility] [place] [facility] BMI 2022-08-12 15:05:00 26.91 kg/m2 [facility] [place] [facility] Systolic blood 2022-06-06 19:06:00 120 mm[Hg] Univer sity of pressure [place] [facility] Diastolic blood 2022-06-06 19:06:00 79 mm[Hg] Unive rsity of pressure [place] [facility] Heart rate 2022-06-06 19:06:00 78 /min [facility]i ty [facility] [place] [facility] Body temperature 2022-06-06 19:06:00 36.17 Shabnam Univ ersity [facility] [place] [facility] Body height 2022-06-06 19:06:00 172.7 cm [facility] [place] [facility] Body weight 2022-06-06 19:06:00 80.513 kg [facility] [place] [facility] BMI 2022-06-06 19:06:00 26.99 kg/m2 [facility] [place] [facility] Oxygen saturation in 2022-06-06 19:06:00 99 /min University of Arterial blood by [place] [employer] [facility] Pulse oximetry Branch Systolic blood 2022-06-05 14:00:00 125 mm[Hg] Univer sity of pressure [place] [facility] Diastolic blood 2022-06-05 14:00:00 74 mm[Hg] Unive rsity of pressure [place] [facility] Heart rate 2022-06-05 14:00:00 80 /min [facility]i ty [facility] [place] [facility] Respiratory rate 2022-06-05 14:00:00 18 /min Univ ersity [facility] [place] [facility] Oxygen saturation in 2022-06-05 14:00:00 99 /min University of Arterial blood by [place] [employer] [facility] Pulse oximetry Branch Body temperature 2022-06-05 11:46:00 35.72 Shabnam Univ ersity [facility] [place] [facility] Body weight 2022-06-05 11:46:00 85.276 kg [facility]i ty [facility] [place] [facility] BMI 2022-06-05 11:46:00 28.59 kg/m2 [facility] [place] [facility] Systolic blood 2022-06-01 00:00:00 140 mm[Hg] Univer sity of pressure [place] [facility] Diastolic blood 2022-06-01 00:00:00 99 mm[Hg] Unive rsity of pressure [place] [facility] Heart rate 2022-06-01 00:00:00 74 /min Universi ty [facility] [place] [facility] Respiratory rate 2022-06-01 00:00:00 18 /min Univ ersity of [place] [facility] Oxygen saturation in 2022-06-01 00:00:00 100 /min University of Arterial blood by [facility] Pulse oximetry Branch Body temperature 2022-05-31 18:57:45 36.33 Shabnam Univ ersity [facility] [place] [facility] Body weight 2022-05-31 18:43:00 85.276 kg [facility]i ty [facility] [place] [facility] BMI 2022-05-31 18:43:00 28.59 kg/m2 [facility] [place] [facility] Systolic blood 2022-04-11 22:07:00 156 mm[Hg] Univer sity of pressure [place] [facility] Diastolic blood 2022-04-11 22:07:00 94 mm[Hg] Unive rsity of pressure [place] [facility] Heart rate 2022-04-11 22:07:00 78 /min [facility]i ty [facility] [place] [facility] Body temperature 2022-04-11 22:07:00 36.39 Shabnam Univ ersity [facility] [place] [facility] Respiratory rate 2022-04-11 22:07:00 19 /min Univ ersity of [place] [facility] Oxygen saturation in 2022-04-11 22:07:00 100 /min University of Arterial blood by [facility] Pulse oximetry Branch Body height 2022-04-11 02:52:00 172.7 cm [facility]i ty [facility] [place] [facility] Body weight 2022-04-11 02:52:00 88.451 kg [facility] ty [facility] [place] [facility] BMI 2022-04-11 02:52:00 29.65 kg/m2 [facility] [place] [facility] Systolic blood 2022-03-27 21:30:00 140 mm[Hg] Univer sity of pressure [place] [facility] Diastolic blood 2022-03-27 21:30:00 83 mm[Hg] Unive rsity of pressure [place] [facility] Heart rate 2022-03-27 21:30:00 68 /min Universi ty [facility] [place] [facility] Respiratory rate 2022-03-27 21:30:00 13 /min Univ ersity of [place] [facility] Oxygen saturation in 2022-03-27 21:30:00 100 /min University of Arterial blood by [facility] Pulse oximetry Branch Body temperature 2022-03-27 18:33:00 36.89 Shabnam Univ ersity [facility] [place] [facility] Body height 2022-03-27 18:33:00 172.7 cm [facility]i ty [facility] [place] [facility] Body weight 2022-03-27 18:33:00 88.451 kg [facility] [place] [facility] BMI 2022-03-27 18:33:00 29.65 kg/m2 [facility] [place] [facility] Body weight 2022-03-12 17:50:00 87.544 kg [facility] [place] [facility] BMI 2022-03-12 17:50:00 29.35 kg/m2 [facility] [place] [facility] Systolic blood 2022-03-12 17:39:00 130 mm[Hg] Univer sity of pressure [place] [facility] Diastolic blood 2022-03-12 17:39:00 83 mm[Hg] Unive rsity of pressure [place] [facility] [place] Heart rate 2022-03-12 17:39:00 71 /min Universi ty of [facility] Branch Body temperature 2022-03-12 17:39:00 36.61 Shabnam Univ ersity of [place] [facility] Respiratory rate 2022-03-12 17:39:00 22 /min Univ ersity of [facility] [place] Body height 2022-03-12 17:39:00 172.7 cm Universi ty of [facility] [place] Oxygen saturation in 2022-03-12 17:39:00 100 /min University of Arterial blood by [place] [employer] [facility] Pulse oximetry Branch Systolic blood 2022-02-27 22:01:00 153 mm[Hg] Univer sity of pressure [place] [facility] Diastolic blood 2022-02-27 22:01:00 85 mm[Hg] Unive rsity of pressure [place] [facility] [place] Heart rate 2022-02-27 22:01:00 81 /min Universi ty of [place] [facility] [place] Respiratory rate 2022-02-27 22:01:00 16 /min Univ ersity of [facility] [place] Oxygen saturation in 2022-02-27 21:26:00 95 /min University of Arterial blood by [place] [employer] [facility] Pulse oximetry Branch Body temperature 2022-02-27 21:04:00 36.89 Shabnam Univ [facility]ity [facility] [place] [facility] Body weight 2022-02-27 21:04:00 88.451 kg [facility]i ty [facility] [place] [facility] BMI 2022-02-27 21:04:00 29.65 kg/m2 [facility] [place] [facility] Body weight 2022-02-13 22:39:00 79.606 kg [facility] [place] [facility] BMI 2022-02-13 22:39:00 26.68 kg/m2 [facility] [place] [facility] Systolic blood 2022-02-13 22:35:00 130 mm[Hg] Univer sity of pressure [place] [facility] Diastolic blood 2022-02-13 22:35:00 87 mm[Hg] Unive rsity of pressure [place] [facility] Heart rate 2022-02-13 22:35:00 65 /min Universi ty [facility] [place] [facility] Respiratory rate 2022-02-13 22:35:00 18 /min Univ ersity of [place] [facility] Oxygen saturation in 2022-02-13 22:35:00 99 /min University of Arterial blood by [facility] rosario Pulse oximetry Branch Body temperature 2022-02-13 21:15:00 36.5 Shabnam Univ [facility]ity [facility] [place] [facility] Body height 2022-02-13 21:15:00 172.7 cm [facility]i ty [facility] [place] [facility] Systolic blood 2022-01-30 19:05:00 140 mm[Hg] Univer sity of pressure [place] [facility] Diastolic blood 2022-01-30 19:05:00 79 mm[Hg] Unive rsity of pressure [place] [facility] Heart rate 2022-01-30 19:05:00 83 /min Universi ty [facility] [place] [facility] Respiratory rate 2022-01-30 19:05:00 16 /min Univ ersity of [place] [facility] Oxygen saturation in 2022-01-30 19:05:00 100 /min University of Arterial blood by [facility] Pulse oximetry Branch Body temperature 2022-01-30 16:57:00 36.61 Shabnam Univ ersity [facility] [place] [facility] Body height 2022-01-30 16:57:00 170.2 cm [facility]i ty [facility] [place] [facility] Body weight 2022-01-30 16:57:00 86.183 kg [facility]i [facility] [place] [facility] BMI 2022-01-30 16:57:00 29.76 kg/m2 [facility] [place] [facility] Systolic blood 2022-01-16 19:31:00 140 mm[Hg] Univer sity of pressure [place] [facility] Diastolic blood 2022-01-16 19:31:00 82 mm[Hg] Unive rsity of pressure [place] [facility] Heart rate 2022-01-16 19:31:00 79 /min Universi ty of [place] [facility] Respiratory rate 2022-01-16 19:31:00 18 /min Univ ersity of [place] [facility] Oxygen saturation in 2022-01-16 19:31:00 99 /min University of Arterial blood by [place] [employer] [facility] Pulse oximetry Branch Body weight 2022-01-16 17:42:00 85.276 kg [facility] [place] [facility] BMI 2022-01-16 17:42:00 29.44 kg/m2 [facility] [place] [facility] Body temperature 2022-01-16 17:41:00 36.83 Shabnam Univ ersity [facility] [place] [facility] Systolic blood 2022 02:00:00 148 mm[Hg] Univer sity of pressure [place] [facility] Diastolic blood 2022 02:00:00 83 mm[Hg] Unive rsity of pressure [place] [facility] Heart rate 2022 02:00:00 79 /min Universi ty [facility] [place] [facility] Respiratory rate 2022 02:00:00 20 /min Univ ersity [facility] [place] [facility] Oxygen saturation in 2022 02:00:00 98 /min [facility] of Arterial blood by [place] [employer] [facility] Pulse oximetry Branch Body weight 2022-01-12 23:58:00 72.576 kg Universi ty [facility] [place] [facility] BMI 2022-01-12 23:58:00 25.06 kg/m2 [facility] [place] [facility] Systolic blood 2022-01-12 20:14:00 139 mm[Hg] Univer sity of pressure [place] [facility] Diastolic blood 2022-01-12 20:14:00 93 mm[Hg] Unive rsity of pressure [place] [facility] Heart rate 2022-01-12 20:14:00 91 /min Universi ty of [place] [facility] Respiratory rate 2022-01-12 20:14:00 18 /min Univ ersity of [place] [facility] Body height 2022-01-12 20:14:00 170.2 cm [facility] [place] [facility] Body weight 2022-01-12 20:14:00 72.576 kg [facility]i ty [facility] [place] [facility] BMI 2022-01-12 20:14:00 25.06 kg/m2 [facility] ty [facility] [place] [facility] Oxygen saturation in 2022-01-12 20:14:00 99 /min University of Arterial blood by [employer] rosario Pulse oximetry Branch Systolic blood 2021-12-28 16:22:00 116 mm[Hg] Univer sity of pressure [place] [facility] Diastolic blood 2021-12-28 16:22:00 76 mm[Hg] Unive rsity of pressure [place] [facility] Heart rate 2021-12-28 16:22:00 78 /min Universi ty [facility] [place] [facility] Body temperature 2021-12-28 16:22:00 35.78 Shabnam Univ ersity of [place] [facility] Oxygen saturation in 2021-12-28 16:22:00 100 /min [facility] of Arterial blood by [place] Medi [facility] Pulse oximetry Branch Respiratory rate 2021-12-28 12:52:00 18 /min Univ ersity of [place] [facility] Body weight 2021-12-28 08:15:00 75.978 kg Universi ty [facility] [place] [facility] BMI 2021-12-28 08:15:00 25.47 kg/m2 [facility] ty [facility] [place] [facility] Body height 2021-12-25 22:02:00 172.7 cm [facility]i ty [facility] [place] [facility] Systolic blood 2021-12-14 19:55:00 120 mm[Hg] Univer sity of pressure [place] [facility] Diastolic blood 2021-12-14 19:55:00 94 mm[Hg] Unive rsity of pressure [place] [facility] Heart rate 2021-12-14 19:55:00 93 /min [facility]i ty [facility] [place] [facility] Body temperature 2021-12-14 19:55:00 36.56 Shabnam Univ ersity [facility] [place] [facility] Respiratory rate 2021-12-14 19:55:00 16 /min Univ ersity of [place] [facility] Body height 2021-12-14 19:55:00 172.7 cm [facility]i ty [facility] [place] [facility] Body weight 2021-12-14 19:55:00 81.647 kg [facility]i ty [facility] [place] [facility] BMI 2021-12-14 19:55:00 27.37 kg/m2 [facility] [place] [facility] Oxygen saturation in 2021-12-14 19:55:00 100 /min [facility] of Arterial blood by [place] Medi [facility] Pulse oximetry Branch Systolic blood 2021-12-09 16:13:00 139 mm[Hg] Univer sity of pressure [place] [facility] Diastolic blood 2021-12-09 16:13:00 88 mm[Hg] Unive rsity of pressure [place] [facility] Heart rate 2021-12-09 16:13:00 77 /min [facility]i ty [facility] [place] [facility] Body temperature 2021-12-09 16:13:00 36.06 Shabnam Univ ersity [facility] [place] [facility] Respiratory rate 2021-12-09 16:13:00 18 /min Univ ersity of [place] [facility] Oxygen saturation in 2021-12-09 16:13:00 95 /min University of Arterial blood by [employer] [facility] Pulse oximetry Branch Body weight 2021-12-09 08:54:00 78.971 kg Universi ty [facility] [place] [facility] BMI 2021-12-09 08:54:00 26.47 kg/m2 [facility] ty [facility] [place] [facility] Systolic blood 2021-11-23 19:30:00 140 mm[Hg] Univer sity of pressure [place] [facility] Diastolic blood 2021-11-23 19:30:00 83 mm[Hg] Unive rsity of pressure [place] [facility] Heart rate 2021-11-23 19:30:00 79 /min [facility]i ty [facility] [place] [facility] Oxygen saturation in 2021-11-23 19:30:00 100 /min University of Arterial blood by [employer] [facility] Pulse oximetry Branch Body temperature 2021-11-23 18:42:00 36.44 Shabnam Univ ersity [facility] [place] [facility] Respiratory rate 2021-11-23 18:39:00 20 /min Univ ersity [facility] [place] [facility] Body height 2021-11-23 18:39:00 172.7 cm [facility]i ty [facility] [place] [facility] Body weight 2021-11-23 18:39:00 83.598 kg [facility] ty [facility] [place] [facility] BMI 2021-11-23 18:39:00 28.02 kg/m2 [facility] [place] [facility] Systolic blood 2021-11-09 21:10:00 169 mm[Hg] Univer sity of pressure [place] [facility] Diastolic blood 2021-11-09 21:10:00 80 mm[Hg] Unive rsity of pressure [place] [facility] Heart rate 2021-11-09 21:10:00 85 /min [facility]i ty [facility] [place] [facility] Respiratory rate 2021-11-09 21:10:00 16 /min Univ ersity of [place] [facility] Oxygen saturation in 2021-11-09 21:10:00 94 /min University of Arterial blood by [facility] Pulse oximetry Branch Body temperature 2021-11-09 19:49:00 36.83 Shabnam [facility] ersity of [facility] [place] Body height 2021-11-09 19:49:00 172.7 cm Universi ty of [facility] [place] Body weight 2021-11-09 19:49:00 90.719 kg Universi ty of [facility] [place] BMI 2021-11-09 19:49:00 30.41 kg/m2 Universi ty of [facility] [place] Systolic blood 2021-10-18 15:17:00 149 mm[Hg] Univer sity of pressure [facility] [place] Diastolic blood 2021-10-18 15:17:00 79 mm[Hg] [facility] Heart rate 2021-10-18 15:17:00 77 /min Universi ty [facility] Body temperature 2021-10-18 15:17:00 36.61 Shabnam [facility] 2021-10-18 15:17:00 16 /min [facility] Body weight 2021-10-18 15:17:00 90.719 kg Universi ty [facility] Oxygen saturation in 2021-10-18 15:17:00 98 /min University of Arterial blood by [facility] Pulse oximetry Branch Procedures Procedure Date / Time Performing Clinician Source Performed CONSENT/REFUSAL FOR 2023-01-03 14:51:27 Doctor Unassigned, No [facility] [place] [facility] Name Medical Branch ID ABDOM PARACENTESIS 2022-12-12 [facility] Branch GUIDANCE ASSIGNMENT OF BENEFITS 2022-12-11 21:29:33 Doctor Unassigned, No [facility] Branch CONSENT/REFUSAL FOR 2022-12-11 19:54:36 Doctor Unassigned, No [facility] [place] [facility] Name Medical Branch ID ABDOM PARACENTESIS 2022-11-21 19:34:[facility] Medical Branch GUIDANCE CONSENT/REFUSAL FOR 2022-11-21 19:22:45 Doctor Unassigned, No [facility] [place] [facility] Name Medical Branch ID ABDOM PARACENTESIS 2022-10-26 21:27:23 Jaydne Gloria [facility] DX/THER W/IMAGING Medical Branch GUIDANCE CONSENT/REFUSAL FOR 2022-10-26 17:34:24 Doctor Unassigned, No [facility] [place] [facility]AT[facility] Name Medical Branch ASSIGNMENT OF BENEFITS 2022-10-26 17:33:49 Doctor Unassigned, No [facility] ID ABDOM PARACENTESIS 2022-08-12 16:58:16 Kev Nguyen [facility] DX/THER W/IMAGING [facility] GUIDANCE XR CHEST 1 VW 2022-08-12 15:57:01 Abdon [facility] LIPASE 2022-08-12 15:28:00 Abdon [facility] COMP. METABOLIC PANEL 2022-08-12 15:28:00 Abdon [facility] ([id number]) Medical Branch CBC WITH DIFF 2022-08-12 15:28:00 Abdon [facility] PROTHROMBIN TIME / INR 2022-08-12 15:28:00 [facility]don [facility] CONSENT/REFUSAL FOR 2022-08-12 15:02:09 [facility] Medical Branch ASSIGNMENT OF BENEFITS 2022-06-06 18:38:18 Doctor Unassigned, No [facility] LIPASE 2022-06-05 13:17:00 Kristel [facility] HEPATIC FUNCTION PANEL 2022-06-05 13:17:00 [id number] (ALB,T.PRO,BILI Medical Branch T,BU/BC,ALT,AST,ALK PHOS) BASIC METABOLIC PANEL 2022-06-05 13:17:00 [facility]el [facility] (NA, K, CL, CO2, Medical Branch GLUCOSE, BUN, CREATININE, CA) CBC WITH DIFF 2022-06-05 13:17:00 Kristel [facility] PROTHROMBIN TIME / INR 2022-06-05 13:17:00 Kristel SathyaBraulio [facility] ACTIVATED PARTIAL 2022-06-05 13:17:00 José Miguel Humphries [facility] THRMPLAS [facility] CONSENT/REFUSAL FOR 2022-06-05 11:43:52 Doctor Unassigned, No [facility] Name [facility] BODY FLUID DIRECT COUNT 2022-05-31 23:03:00 [place] [facility] HEPATIC FUNCTION PANEL 2022-05-31 21:22:00 Onur [facility] ([id number]) (ALB,T.PRO,BILI [facility] T,BU/BC,ALT,AST,ALK PHOS) CBC WITH DIFF 2022-05-31 19:08:00 Mohr, [facility] BASIC METABOLIC PANEL 2022-05-31 19:00:00 [facility] (NA, K, CL, CO2, [facility] GLUCOSE, BUN, CREATININE, CA) PROTHROMBIN TIME / INR 2022-05-31 19:00:00 Onur Jeremias [facility] CONSENT/REFUSAL FOR 2022-05-31 18:40:37 Doctor Unassigned, No Un [facility]REATMENT Name [facility] BASIC METABOLIC PANEL 2022-04-11 22:15:00 Rivera Stinson [facility] (NA, K, CL, CO2, [facility] GLUCOSE, BUN, CREATININE, CA) BLOOD CULTURE SCREEN 2022-04-11 16:47:[address] [facility] MAGNESIUM 2022-04-11 09:39:00 [facility] MET[facility]OLIC PANEL 2022-04-11 09:39:00 Edide Doyle [facility] ([id number]) [facility] CBC WITH DIFF 2022-04-11 09:39:00 [facility] ANTIBODY 2022-04-11 09:39:00 [facility] HE[facility] C VIRUS (HCV) 2022-04-11 09:39:00 [facility] BY QUANTITATIVE NAAT Medical [facility] T.PROTEIN BODY FLUID 2022-04-11 06:15:00 Eddie Doyle [facility] BODY FLUID DIRECT COUNT 2022-04-11 06:15:00 Eddie [facility] BODY FLUID (BACTEC 2022-04-11 06:15:00 Geeta Young [facility] BOTTLE) Medical Branch COMP. METABOLIC PANEL 2022-04-10 21:26:00 Jayden Gloria [facility] ([id number]) [facility] CBC WITH DIFF 2022-04-10 21:26:00 Faizan Jayden Triplett o f [facility] GLYCOSYLATED HEMOGLOBIN 2022-04-10 21:26:00 Jessica Leon [facility] (A1C) [facility] PROTHROMBIN TIME / INR 2022-04-10 21:26:00 Jayden Gloria [facility] ACTIVATED PARTIAL 2022-04-10 21:26:00 Jayden Gloria [facility] THRMPLAS [facility] CONSENT/REFUSAL FOR 2022-04-10 19:58:33 Doctor Unassigned, No Un iversThe [facility] DI[facility] AND TREATMENT [facility] HOSPITAL ADMISSION 2022-04-10 06:01:00 Doctor Unassigned, No [facility] ABDOM PARACENTESIS 2022-03-27 20:57:39 Gini East [facility] DX/THER W/IMAGING [facility] GUIDANCE COMP. METABOLIC PANEL 2022-03-27 18:56:00 [facility] ([id number]) [facility] CBC WITH DIFF 2022-03-27 18:56:00 Gini [place] [facility] PROTHROMBIN TIME / INR 2022-03-27 18:56:00 Gini [facility] ID ABDOM PARACENTESIS 2022-03-12 18:32:33 Kev Nguyen [facility] DX/THER W IMAGING [facility] GUIDANCE CONSENT/REFUSAL FOR 2022-03-12 17:29:10 Doctor Unassigned, No Un iversity [facility] DIAGNOSIS AND TREATMENT [facility] ID ABDOM PARACENTESIS 2022-02-27 21:29:57 Kev Nguyen [facility] DX/THER W IMAGING Medical Branch GUIDANCE CONSENT/REFUSAL FOR 2022-02-27 21:02:37 Doctor Unassigned, No Un [facility] [place] DIAGNOSIS AND TREATMENT Name Medical Branch ID ABDOM PARACENTESIS 2022-02-13 21:42:20 Kev Nguyen [facility] DX/THER W IMAGING Medical Branch GUIDANCE CONSENT/REFUSAL FOR 2022-02-13 21:08:22 Doctor Unassigned, No Un [facility] [place] DIAGNOSIS AND TREATMENT Name Medical Branch ID ABDOM PARACENTESIS 2022-01-30 19:16:37 Kev Nguyen [facility] DX/THER W IMAGING Medical Branch GUIDANCE CONSENT/REFUSAL FOR 2022-01-30 16:51:04 Doctor Unassigned, No Un [facility] [place] DIAGNOSIS AND TREATMENT Name Medical Branch ID ABDOM PARACENTESIS 2022-01-16 19:17:58 Kev Nguyen [facility] DX/THER W IMAGING Medical Branch GUIDANCE CONSENT/REFUSAL FOR 2022-01-16 17:29:44 Doctor Unassigned, No Un [facility] [place] DIAGNOSIS AND TREATMENT Name [facility] XR CHEST 1 VW 2022 01:47:22 Jaqui Romano [facility] COMP. METABOLIC PANEL 2022 01:19:00 Jaqui Romano [facility] ([id number]) [facility] CBC WITH DIFF 2022 01:19:00 Jaqui Romano [facility] PROTHROMBIN TIME / INR 2022 01:19:00 Jaqui Romano [facility] ACTIVATED PARTIAL 2022 01:19:00 Jaqui Romano [facility] CONSENT/REFUSAL FOR 2022-01-12 22:44:32 Doctor Unassigned, No Un [facility] [place] DIAGNOSIS AND TREATMENT Name Medical Branch CONSENT/REFUSAL FOR 2022-01-12 20:00:19 Doctor Unassigned, No Un [facility] [place] DIAGNOSIS AND TREATMENT Name Medical Branch POCT GLUCOSE (AUTOMATED) 2021-12-28 12:54:00 Augustin Jean [facility] BASIC METABOLIC PANEL 2021-12-28 08:19:[address] [facility] (NA, K, CL, CO2, Medical Branch GLUCOSE, BUN, CREATININE, CA) CBC WITH DIFF 2021-12-28 08:19:00 Danielle Rothman [facility] BODY FLUID DIRECT COUNT 2021-12-28 01:21:00 Gee, [facility] BODY FLUID 2021-12-28 01:21:00 [facility] CULTURE(AEROBIC/ANAEROBI [facility] C) POCT GLUCOSE (AUTOMATED) 2021-12-28 00:42:00 Augustin Jean Uni [facility] POCT GLUCOSE (AUTOMATED) 2021-12-27 21:53:00 Augustin Jean Uni [facility] POCT GLUCOSE (AUTOMATED) 2021-12-27 16:33:00 Augustin Jean Uni [facility] POCT GLUCOSE (AUTOMATED) 2021-12-27 12:29:00 Augustin Jean [facility] BASIC METABOLIC PANEL 2021-12-27 09:27:[address] [facility] (NA, K, CL, CO2, Medical Branch GLUCOSE, BUN, CREATININE, CA) CBC WITH DIFF 2021-12-27 09:27:00 Danielle Rothman [facility] POCT GLUCOSE (AUTOMATED) 2021-12-27 01:11:00 Augustin Jean [facility] POCT GLUCOSE (AUTOMATED) 2021-12-26 21:17:00 Augustin Jean [facility] POCT GLUCOSE (AUTOMATED) 2021-12-26 16:48:00 Augustin Jean Uni [facility] POCT GLUCOSE (AUTOMATED) 2021-12-26 12:47:00 Augustin Jean [facility] LACTATE DEHYDROGENASE 2021-12-26 09:26:00 [facility]in [facility] MAGNESIUM 2021-12-26 09:26:00 Ted Augustinjeff García o f [facility] HEPATIC FUNCTION PANEL 2021-12-26 09:26:00 Augustin Jean [facility] ([id number]) (ALB,T.PRO,BILI Medical Branch T,BU/BC,ALT,AST,ALK PHOS) BASIC METABOLIC PANEL 2021-12-26 09:26:00 Ted [facility] (NA, K, CL, CO2, Medical Branch GLUCOSE, BUN, CREATININE, CA) CBC WITH DIFF 2021-12-26 09:26:00 Ted [facility] POCT GLUCOSE (AUTOMATED) 2021-12-26 00:44:00 Ted [facility] POCT GLUCOSE (AUTOMATED) 2021-12-25 23:16:00 Ted Augustin [facility] URINALYSIS 2021-12-25 15:12:00 Chilo Oliva [facility] XR CHEST 2 VW 2021-12-25 14:56:42 Chilo Oliva [facility] COMP. METABOLIC PANEL 2021-12-25 14:31:00 Chilo Oliva [facility] ([id number]) [facility] CBC WITH DIFF 2021-12-25 14:31:00 Chilo Oliva [facility] PROTHROMBIN TIME / INR 2021-12-25 14:31:00 Chilo Oliva [facility] ACTIVATED PARTIAL 2021-12-25 14:31:00 Chilo Oliva [facility] CONSENT/REFUSAL FOR 2021-12-25 13:31:05 Doctor Unassigned, No [facility] Name [facility] BASIC METABOLIC PANEL 2021-12-14 22:07:00 Mike Hoffman [facility] (NA, K, CL, CO2, Medical Branch GLUCOSE, BUN, CREATININE, CA) CBC WITH DIFF 2021-12-14 22:07:00 Mike Hoffman [facility] CONSENT/REFUSAL FOR 2021-12-14 19:51:33 Doctor Unassigned, No [facility]REATMENT Name [facility] POCT GLUCOSE (AUTOMATED) 2021-12-09 16:37:00 Alisha Cha [facility] POCT GLUCOSE (AUTOMATED) 2021-12-09 12:50:00 Alisha Cha [facility] BASIC METABOLIC PANEL 2021-12-09 08:57:[address] [facility] (NA, K, CL, CO2, Medical Branch GLUCOSE, BUN, CREATININE, CA) POCT GLUCOSE (AUTOMATED) 2021-12-09 01:54:00 Alisha Cha [facility] POCT GLUCOSE (AUTOMATED) 2021-12-08 21:56:00 Alisha Cha [facility] POCT GLUCOSE (AUTOMATED) 2021-12-08 16:49:00 Alisha Cha [facility] POCT GLUCOSE (AUTOMATED) 2021-12-08 14:07:00 Alisha Cha [facility] PHOSPHORUS 2021-12-08 08:58:00 Dusty Josue [facility] URIC ACID 2021-12-08 08:58:00 Dusty Josue [facility] MAGNESIUM 2021-12-08 08:58:00 Dusty Josue [facility] AMMONIA, PLASMA 2021-12-08 08:58:00 Dusty Josue [facility] BASIC METABOLIC PANEL 2021-12-08 08:58:[address] [facility] (NA, K, CL, CO2, [facility] GLUCOSE, BUN, CREATININE, CA) IRON PANEL 2021-12-08 08:58:00 Dusty Josue [facility] CBC WITH DIFF 2021-12-08 08:58:00 Danielle Rothman [facility] URINALYSIS 2021-12-08 02:26:00 Willy [facility] POTASSIUM, URINE RANDOM 2021-12-08 02:25:00 Willy [facility] SODIUM, URINE RANDOM 2021-12-08 02:25:00 Willy [facility] PROTEIN CREAT RATIO 2021-12-08 02:25:00 Willy [facility] URINE RANDOM Medical Branch OSMOLALITY URINE 2021-12-08 02:23:00 Willy, [facility] POCT GLUCOSE (AUTOMATED) 2021-12-08 02:08:00 Alisha Cha [facility] ID ABDOM PARACENTESIS 2021-12-07 22:45:00 Jayden Gloria [facility] DX/THER W IMAGING [facility] GUIDANCE PHOSPHORUS 2021-12-07 19:33:00 [facility] CREATINE KINASE 2021-12-07 19:33:00 Willy [facility] MAGNESIUM 2021-12-07 19:33:[address] [facility] LIPID PANEL 2021-12-07 19:33:00 [facility] ([id number])(TOTAL Medical Branch CHOLESTEROL, TRIGLYCERIDES, HDL) N-TERMINAL PRO-BNP 2021-12-07 19:33:00 [facility] COMP. METABOLIC PANEL 2021-12-07 16:02:00 Jayden Gloria [facility] ([id number]) [facility] CBC WITH DIFF 2021-12-07 16:02:00 Faizan [facility] GLYCOSYLATED HEMOGLOBIN 2021-12-07 16:02:00 [facility] ([facility] PROTHROMBIN TIME / INR 2021-12-07 16:02:00 Jayden Gloria [facility] ACTIVATED PARTIAL 2021-12-07 16:02:00 Faizan Count includes the [facility] THRMPLAS [facility] CONSENT/REFUSAL FOR 2021-12-07 15:35:39 Doctor Unassigned, No Un iversity [facility] DIAGNOSIS AND TREATMENT [facility] Medical Branch ID ABDOM PARACENTESIS 2021-11-23 19:39:[address] [facility] DX/THER [facility] GUIDANCE CONSENT/REFUSAL FOR 2021-11-23 18:36:31 Doctor Unassigned, No Un iversity [facility] DIAGNOSIS AND TREATMENT [facility] ID ABDOM PARACENTESIS 2021-11-09 20:59:55 Kev Nguyen [facility] DX/THER W IMAGING [facility] GUIDANCE CONSENT/REFUSAL FOR 2021-11-09 19:35:17 Doctor Unassigned, No [facility] [place] DIAGNOSIS AND TREATMENT Name [facility] NOTICE OF PRIVACY 2021-11-09 19:32:40 Doctor Unassigned, No Univ [facility] [place] PRACTICES Name Medical Branch LIPASE 2021-10-18 15:50:00 Annabelle Temple [facility] COMP. METABOLIC PANEL 2021-10-18 15:50:00 Annabelle Temple [facility] [place] ([id number]) [facility] CBC WITH DIFF 2021-10-18 15:50:00 Annabelle Temple [facility] CONSENT/REFUSAL FOR 2021-10-18 15:18:16 Doctor Unassigned, No [facility] [place] DIAGNOSIS AND TREATMENT Name [facility] Encounters Start End Encounter Admission Attending Care Care Encounter Source Date/Time Date/Time Type Type Clinicians Facility Department ID 2023-01-03 2023-01-03 Emergency X AFIA SAMUEL [facility] ERT [id number] Univers 09:59:00 11:03:00 AFIA SAMUEL edgardo [facility] 2023-01-03 2023-01-03 Emergency Danielle Hurley S [facility] 1.2.840.1 [id number] Univers 09:59:00 11:03:00 Samuel Oreilly 350.1.13.10 ity [facility] 4.2.7.2.686 [facility] [id number] [address] 2023-01-02 2023-01-[address] [facility] [id number] [place] 11:15:36 11:15:36 [id number] F Kentrell 2022-12-11 2022-12-11 Emergency Jens NGUYEN [facility] ERT [id number] Univers 15:03:00 20:59:00 KEV reynoso [facility] 2022-12-11 2022-12-11 Emergency Singer [facility] [id number] Univers 15:03:00 20:59:00 Kev SOSA 350.1.13.10 i ty [facility] 4.2.7.2.686 [facility] [id number] [address] 2022-11-21 2022-11-21 Emergency X [facility] ERT [id number] Univers 14:28:00 15:55:00 KEV reynoso [facility] 2022-11-21 2022-11-21 Emergency [facility] [id number] Univers 14:28:00 15:55:00 Kev SOSA 350.1.13.10 i ty of [place] 4.2.7.2.686 [facility] [id number] [address] 2022-11-13 2022-11-13 Outpatient [facility] [id number] [place] 09:08:57 09:08:57 [id number] F [place] 2022-10-26 2022-10-26 Emergency Jens [facility] [id number] Univers 12:39:00 16:55:00 JAYDEN erynoso [facility] 2022-10-26 2022-10-26 Emergency [facility] [id number] Univers 12:39:00 16:55:00 Jayden SOSA 350.1.13.10 i ty of [place] 4.2.7.2.686 [facility] [id number] [address] 2022-09-17 2022-09-17 Outpatient [facility] Dontrell 11:30:32 11:30:32 [id number] F [place] 2022-08-13 2022-08-13 Outpatient [facility] [place]rell 08:09:25 08:09:25 [id number] F [place] 2022-08-12 2022-08-12 Emergency X ABDON [facility] ERT [id number] Univers 10:04:00 12:47:00 MIKE reynoso [facility] 2022-08-12 2022-08-12 Emergency [facility] [id number] Univers 10:04:00 12:47:00 Mike SOSA 350.1.13.10 i ty of [facility] 4.2.7.2.686 [facility] [id number] [address] 2022-06-13 2022-06-13 Outpatient [facility] [id number] [place] 09:35:42 09:35:42 [id number] F [place] 2022-06-06 2022-06-06 Office Chapman, [facility] 1.2.840.114 [id number] Univers 14:30:00 15:00:00 Visit [facility] SPECIALTY 350.1.13.10 it[place] [id number] Ky farrah LYONS 2 [facility] 2022-06-06 2022-06-06 Outpatient [facility] [id number] Univers 14:30:00 14:30:00 LEILA ity of [facility] 2022-06-06 2022-06-06 Orders Doctor JENNY 1.2.840.114 [id number] Univers 00:00:00 00:00:00 Only Unassigned, CARL 350.1.13.10 ity of [place] [facility] 4.2.7.2.686 Henrique as [id number] [facility] [address] [place] 2022-06-05 2022-06-05 Emergency X KRISTEL, JOSÉ MIGUEL [facility] ERT 1 [id number] Univers 06:51:00 10:20:00 KRISTEL, SATHYA-MENDEZ ity of [facility] 2022-06-05 2022-06-05 Emergency Kristel, TRAUMA [id number] Univers 06:51:00 10:20:00 [facility] 350.1.13.10 [place] [id number] [address] 2022-05-31 2022-05-31 Emergency X JEREMIAS MOHR [facility] ERT [id number] Univers 13:40:00 19:16:00 JEREMIAS MOHR ity of [facility] 2022-05-31 2022-05-31 Emergency Mohr, TRAUMA 1.2.695.886 [id number] Univers 13:40:00 19:16:00 Jeremias DIKE 350.1.13.10 [place] [id number] [address] 2022-05-13 2022-05-[address] [facility] [id number] [place] 08:36:17 08:36:17 [id number] F [place] 2022-04-10 2022-04-11 Outpatient U DION [facility] NICOLE [id number] Univers 14:05:00 17:45:00 GEETA reynoso [facility] 2022-04-10 2022-04-11 Emergency Jayden Gloria 1.2.840. 114 [id number] Univers 14:05:00 17:45:00 Geeta YoungY 350.1.13.10 [facility] 4.2.7.2.686 Henrique [id number] [address] 2022-03-27 2022-03-27 Emergency Jens [facility] ERT [id number] Univers 12:34:00 17:18:00 GINI [facility] 2022-03-27 2022-03-27 Emergency [facility] 1.2.285.162 [id number] Univers 12:34:00 17:18:00 Gini SOSA 350.1.13.10 ityasmeen [facility] 4.2.7.2.686 [facility] [id number] [address] 2022-03-26 2022-03-[address] [facility] Dontrell 10:22:23 10:22:23 [id number] F [place] 2022-03-25 2022-03-[address] [facility] Dontrell 13:11:32 13:11:32 [id number] F [place] 2022-03-12 2022-03-12 Emergency Jens [facility] ERT [id number] Univers 11:38:00 14:36:00 KEV reynoso [facility] 2022-03-12 2022-03-12 Emergency [facility] [id number] Univers 11:38:00 14:36:00 Kev SOSA 350.1.13.10 i Jesus Manuel 4.2.7.2.686 [facility] [id number] [address] 2022-02-27 2022-02-27 Emergency Jens [facility] ERT [id number] Univers 15:04:00 16:07:00 KEV reynoso [facility] 2022-02-27 2022-02-27 Emergency , [facility] [id number] Univers 15:04:00 16:07:00 Kev SOSA 350.1.13.10 i ty of [place] 4.2.7.2.686 [facility] [id number] [address] 2022-02-13 2022-02-13 Emergency X , [facility] ERT [id number] Univers 15:17:00 16:45:00 KEV reynoso [facility] 2022-02-13 2022-02-13 Emergency [facility] 1.2.802.512 [id number] Univers 15:17:00 16:45:00 Kev SOSA 350.1.13.10 i ty of [place] 4.2.7.2.6 [facility] [id number] [address] 2022-01-30 2022-01-30 Emergency X , [facility] ERT [id number] Univers 10:58:00 13:28:00 KEV reynoso [facility] 2022-01-30 2022-01-30 Emergency Ahmet, Lila Thakkar [facility] 1.2.840. 114 [id number] Univers 10:58:00 13:28:00 Kev NguyenMARCUS 350.1.13.10 ity [facility] 4.2.7.2.[address] [place] [id number] 2022-01-16 2022-01-16 Emergency X [facility] ERT [id number] Univers 11:43:00 14:30:00 KEV reynoso [facility] 2022-01-16 2022-01-16 Emergency [facility] [id number] Univers 11:43:00 14:30:00 Kev SOSA 350.1.13.10 i ty of [place] 4.2.7.2.6 [facility] [id number] [address] 2022-01-16 2022-01-16 Orders Doctor ALVARADO 1.2.840.114 [id number] Univers 00:00:00 00:00:00 Only Unassigned, CARL 350.1.13.10 ity of [place] [facility] 4.2.7.2.686 Henrique as [id number] [facility] 009 Branch 2022-01-12 2022-01-12 Emergency X ZIYAD [facility] ERT [id number] Univers 17:45:00 21:44:00 JAQUI reynoso [facility] 2022-01-12 2022-01-12 Emergency Dallucieo, Samuel TRAUMA 1.2.840 .114 [id number] Univers 17:45:00 21:44:00 Jaqui Romano [facility] 350.1.13.10 [place] [id number] [facility] 014 Branch 2022-01-12 2022-01-12 Emergency X [facility] ERT [id number] Univers 15:17:00 15:27:00 MAGNOLIA reynoso [facility] 2022-01-12 2022-01-12 Emergency [facility] [id number] Univers 15:17:00 15:27:00 Magnolia SOSA 350.1.13.10 ity [facility] 4.2.7.2.[place] [id number] [facility] 084 Branch 2022-01-01 2022-01-01 Transition WENCESLAO Fragoso 1.2.840.114 [id number] Univers 00:00:00 00:00:00 of Care Analia AVERY 350.1.13.10 [place] of [place] [id number] [facility] 403 Branch 2021-12-25 2021-12-28 Inpatient X TED [facility] NICOLE [id number] Univers 08:38:00 13:08:00 AUGUSTIN reynoso [facility] 2021-12-25 2021-12-28 Hospital Chilo Oliva [facility] 1.2.840. 114 [id number] Univers 08:38:00 13:08:00 Encounter Augustin Jean 350.1.13.10 ity of [place] [id number] [address] 2021-12-14 2021-12-14 Emergency [facility] ERT [id number] Univers 14:56:00 18:52:00 MIKE edgardo [facility] 2021-12-14 2021-12-14 Emergency [facility] [id number] Univers 14:56:00 18:52:00 Mike SOSA 350.1.13.10 i ty of [place] [address] [place] [id number] 2021-12-07 2021-12-09 Inpatient X SEMAJ [facility] NICOLE [id number] Univers 10:44:00 16:35:00 ALISHA reynoso [facility] 2021-12-07 2021-12-09 [facility] Jayden Gloria [facility] 1.2.840.1 [id number] Univers 10:44:00 16:35:00 Encounter Alisha Cha 350.1.13.10 ity of [place] 4.[address].7.[address] [place] [id number] 2021-11-23 2021-11-23 Emergency [facility] ERT [id number] Univers 13:42:00 14:58:00 JONNA edgardo [facility] 2021-11-23 2021-11-23 Emergency [facility] 1.2.840.114 [id number] Univers 13:42:00 14:58:00 Jonna SOSA 350.1.13.10 ity of [place] [address] [place] [id number] 2021-11-09 2021-11-09 Emergency X [facility] ERT [id number] Univers 14:51:00 16:42:00 KEV reynoso [facility] 2021-11-09 2021-11-09 Emergency [facility] [id number] [id number] Univers 14:51:00 16:42:00 Kev SOSA 350.1.13.10 i ty [facility] [id number] [place] [address] [phone] [place] [id number] [place] 2021-11-09 2021-11-09 Orders Doctor JENNY [id number] [employer] 00:00:00 00:00:00 Only Unassigned, CARL 350.1.13.10 ity of [place] [facility] 4.2.7.2.686 Henrique as [phone] [facility] - [place] [address] 2021-10-18 2021-10-18 Emergency X [place], [facility] ERT [id number] [facility] 10:21:00 11:56:00 FOLUSHO ity of [facility] 2021-10-18 2021-10-18 Emergency [place], TRAUMA [id number] Univers 10:21:00 11:56:00 [facility] [id number] ity of [id number] [place] [id number] [facility] [place] [facility] [address] Results Test Description Test Time Test Comments Results Result Comments Source BASIC METABOLIC PANEL (NA, K, CL, CO2, GLUCOSE, BUN, 2022-05 13:40:36 CREATININE, CA) Test Item Value Reference Range Interpretation Comme nts NA (test code = 8355171295) 138 mmol/L 135-145 K (test code = 2894853834) 4.8 mmol/L 3.5-5.0 CL (test code = 0866573090) 102 mmol/L 98-108 CO2 TOTAL (test code = 6705925179) 32 mmol/L 23-31 H AGAP (test code = 5792741517) 4 2-16 BUN (test code = 6561069058) 45 mg/dL 7-23 H GLUCOSE (test code = 3651749853) 163 mg/dL 70-110 H CREATININE (test code = 2.52 mg/dL 0.60-1.25 H 1853378042) CALCIUM (test code = 3033342186) 8.1 mg/dL 8.6-10.6 L eGFR (test code = 1362541186) 25.8 mL/min/1.73m2 RODRIGO (test code = RODRIGO) [...] tests). Lab Interpretation (test code = Abnormal 78662-1) [facility]88282[facility] (ALB,T.PRO,BILI T,BU/BC,ALT,AST,ALK PHOS)2022-06-05 13:40:36 Test Item Value Reference Range Interpretation Comments TOTAL BILI (test code = 6733519655) 0.4 mg/dL 0.1-1.1 BILI UNCON (test code = 5125363137) 0.1 mg/dL 0.1-1.1 BILI CONJ (test code = 7802947858) 0.0 mg/dL 0.0-0.3 T PROTEIN (test code = 2153140851) 6.0 g/dL 6.3-8.2 L ALBUMIN (test code = 3001002627) 2.9 g/dL 3.5-5.0 L ALK PHOS (test code = 9165948113) 71 U/L 34-122 ALTv (test code = 1742-6) 15 U/L 5-50 AST(SGOT) (test code = 5889049517) 23 U/L 13-40 Lab Interpretation (test code = Abnormal 17912-2) [facility] 13:40:36 Test Item Value Reference Range Interpretation Comments LIPASE (test code = 4858478544) 125 U/L 0-220 Lab Interpretation (test code = Normal 75934-4) [facility] THRM[facility]AS [id number] 13:37:54 Test Item Value Reference Range Interpretation Comments APTT Patient (test code 38 See_Comment H [Au tomated message] = 3173-2) The system whic h generated this result transmitted ref erence range: 26 - 36 Seconds. The reference range was not used to int erpret this result as normal/abnormal . Lab Interpretation (test Abnormal code = 91083-8) [facility]le[facility] / [id number] 13:37:54 Test Item Value Reference Range Interpretation [...] tions. Lab Interpretation (test Abnormal code = 08307-8) [facility]le[facility] WITH [id number] 13:31:36 Test Item Value Reference Range Interpretation Comments WBC (test code = 4.39 See_Comment [Automated 3390-2) message] The sy stem which generated this result transmitted reference range : 4.20 - 10.70 10*3/?L. The reference range was not used to interpret this result as normal/abnormal . RBC (test code = 3.48 See_Comment L [Automated 629-8) message] The sy stem which generated this [...] RDW-SD (test code = 45.2 fL 38.5-51.6 64187-0) RDW-CV (test code = 13.9 % 12.1-15.4 788-0) PLT (test code = 123 See_Comment L [Automated 777-3) message] The sy stem which generated this result transmitted reference range : 150 - 328 10*3/ ?L. The reference r kelin was not used to interpret this result as normal/abnormal . MPV (test code = 9.7 fL 9.8-13.0 L 42367-0) NRBC/100 WBC (test 0.0 See_Comment [Automat ed code = 9096768968) message] The system which generated this result transmitted reference range : 0.0 - 10.0 /100 WBCs. The refer ence range was not u sed to interpret th is result as normal/abnormal . NRBC x10^3 (test code See_Comment [Auto mated = 0112637161) message] The s ystem which generated this result transmitted reference range : 10*3/?L. The reference range was not used to interpret this result as normal/abnormal . GRAN MAT (NEUT) % 74.0 % (test code = 770-8) IMM GRAN % (test code 0.70 % = 5195655919) LYMPH % (test code = 10.9 % 736-9) MONO % (test code = 11.2 % 5905-5) EOS % (test code = 2.7 % 713-8) BASO % (test code = 0.5 % 706-2) GRAN MAT x10^3(ANC) 3.25 10*3/uL 1.99-6.95 (test code = 9783984270) IMM GRAN x10^3 (test 0.03 10*3/uL 0.00-0.06 code = 4255167176) LYMPH x10^3 (test code 0.48 10*3/uL 1.09-3.23 L = 731-0) MONO x10^3 (test code 0.49 10*3/uL 0.36-1.02 = 742-7) EOS x10^3 (test code = 0.12 10*3/uL 0.06-0.53 711-2) BASO x10^3 (test code 0.01-0.09 = 704-7) Lab Interpretation Abnormal (test code = 30432-8) [facility] METABOLIC PANEL (NA, K, CL, CO2, GLUCOSE, BUN, CREATININE, CA)2022-05-31 19:22:56 Test Item Value Reference Range Interpretation Comments NA (test code = 136 mmol/L 135-145 8220581869) K (test code = 5.2 mmol/L 3.5-5.0 H 9912069318) CL (test code = 100 mmol/L 98-108 6837369324) CO2 TOTAL (test code = 29 mmol/L 23-31 1343894943) AGAP (test code = 7 2-16 2693931832) BUN (test code = 49 mg/dL 7-23 H 2024418079) GLUCOSE (test code = 115 mg/dL 70-110 H 1406815238) CREATININE (test code = 2.47 mg/dL 0.60-1.25 H 5502611027) CALCIUM (test code = 8.3 mg/dL 8.6-10.6 L 6781570162) eGFR (test code = 26.4 mL/min/1.73m2 4733631424) RODRIGO (test code = RODRIGO) Association of [...] tests). Lab Interpretation Abnormal (test code = 44550-7) [facility] WITH [id number] 19:14:12 Test Item Value Reference Range Interpretation Comments WBC (test code = 4.75 See_Comment [Automated 1990-2) message] The sy stem which generated this result transmitted reference range : 4.20 - 10.70 10*3/?L. The reference range was not used to interpret this result as normal/abnormal . RBC (test code = 3.90 See_Comment L [Automated 409-8) message] The sy stem which generated this [...] RDW-SD (test code = 46.5 fL 38.5-51.6 67548-4) RDW-CV (test code = 14.3 % 12.1-15.4 788-0) PLT (test code = 163 See_Comment [Automated 777-3) message] The sy stem which generated this result transmitted reference range : 150 - 328 10*3/ ?L. The reference r kelin was not used to interpret this result as normal/abnormal . MPV (test code = 9.2 fL 9.8-13.0 L 11296-8) NRBC/100 WBC (test 0.0 See_Comment [Automat ed code = 4755076374) message] The system which generated this result transmitted reference range : 0.0 - 10.0 /100 WBCs. The refer ence range was not u sed to interpret th is result as normal/abnormal . NRBC x10^3 (test code See_Comment [Auto mated = 3576893013) message] The s ystem which generated this result transmitted reference range : 10*3/?L. The reference range was not used to interpret this result as normal/abnormal . GRAN MAT (NEUT) % 73.9 % (test code = 770-8) IMM GRAN % (test code 0.40 % = 3787590101) LYMPH % (test code = 13.1 % 736-9) MONO % (test code = 9.1 % 5905-5) EOS % (test code = 2.9 % 713-8) BASO % (test code = 0.6 % 706-2) GRAN MAT x10^3(ANC) 3.51 10*3/uL 1.99-6.95 (test code = 8599838204) IMM GRAN x10^3 (test 0.00-0.06 code = 1173035556) LYMPH x10^3 (test code 0.62 10*3/uL 1.09-3.23 L = 731-0) MONO x10^3 (test code 0.43 10*3/uL 0.36-1.02 = 742-7) EOS x10^3 (test code = 0.14 10*3/uL 0.06-0.53 711-2) BASO x10^3 (test code 0.03 10*3/uL 0.01-0.09 = 704-7) Lab Interpretation Abnormal (test code = 88908-9) [facility]lePROTHROMBIN TIME / [id number] 19:12:09 Test Item Value Reference Range Interpretation Comments PROTIME PATIENT (test 12.7 See_Comment H [Auto mated message] code = 5964-2) The system [employer] ich generated this result transmitted ref erence range: 10.1 - 1 2.6 Seconds. The reference range was not used to int erpret this result as normal/abnormal . INR (test code = 6301-6) 1.1 Nor mal INR <1.1; Warfarin Therap eutic range 2.0 to 3. 0 or 2.5 to 3.5, dep ending upon the indica tions. Lab Interpretation (test Abnormal code = 43653-9) [facility] AzleBODY FLUID MANUAL [id number] 22:52:46 Test Item Value Reference Range Interpretation Comments BF SEGS% (test 16 % code = 37931-0) BF LYMPHS% (test 50 % code = 67386-3) BF MACROPHAGE% 30 % (test code = 66752-6) BF MESOS% (test 4 % code = 85079-3) BF #CELLS CNTD 100 cells/uL (test code = 6160435420) RODRIGO (test code = Reviewed by HANG HERNANDES MD, Director of HEMATOPATHOLOGY [facility] Protein Body [id number] 08:10:53 Test Item Value Reference Range Interpretation Comments T.PROT BF (test 3000.0 mg/dL code = 5666535692) UNSPUN BODY FLUID Light Yellow COLOR (test code = 6909362127) UNSPUN BODY FLUID Cloudy CLARITY (test code = 5628896707) SPUN BODY FLUID Light Yellow COLOR (test code = 9348344692) SPUN BODY FLUID Cloudy CLARITY (test code = 4643665963) Sediment (test code The sediment volume is = 8624831887) <0.01 mLs of the total fluid volume of 5 mLs and its color is red. RODRIGO (test code = Test developed and RODRIGO) characteristics determined by [facility] Laboratory Services. [facility] AzleBODY FLUID DIRECT [id number] 08:09:17 Test Item Value Reference Range Interpretation Comments BF COLOR (test Yellow code = 8234683137) TURBIDITY (test Turbid code = 9731620400) BF WBC Count 645 See_Comment [Automated (test code = message] The 8031785206) system which generated this result transmitted reference range : /?L. The reference range was not used to interpret this result as normal/abnormal . BF RBC Count See_Comment [Automated (test code = message] The 1776128314) system which generated this result transmitted reference range : /?L. The reference range was not used to interpret this result as normal/abnormal . RODRIGO (test code = The reference range RODRIGO) and other method performance specifications have not been established for this body fluid. ?The test results must be integrated into the clinical context for interpretation. [facility]leGLYCOSYLATED HEMOGLOBIN (A1C)2022-04-11 04:15:40 Test Item Value Reference Range Interpretation Comments HGB A1C (test code = 5.0 % 4.0-5.7 4548-4) RODRIGO (test code = RODRIGO) Reference RangesNormal: <5.7%Prediabetes: 5.7 - 6.4%Diabetes: > 6.5% Lab Interpretation (test Normal code = 20385-7) [facility]leACTIVATED PARTIAL THRMPLAS [id number] 21:53:50 Test Item Value Reference Range Interpretation Comments APTT Patient (test 27 See_Comment [Automat ed code = 3173-2) message] The system which generated this result transmitted reference range : 23 - 38 Seconds . The reference range was not used to interpr et this result as normal/abnormal . RODRIGO (test code = RODRIGO) The [facility] patient population mean normal value for aPTT is 30 seconds. Lab Interpretation Normal (test code = 60765-5) [facility] AzlePROTHROMBIN TIME / [id number] 21:51:52 Test Item Value Reference Range Interpretation [...] tions. Lab Interpretation (test Normal code = 92154-8) [facility] AzleCOMP. METABOLIC PANEL (75000)2022-04-10 21:50:30 Test Item Value Reference Range Interpretation Comments NA (test code = 138 mmol/L 135-145 0144331811) K (test code = 4.7 mmol/L 3.5-5.0 0554288434) CL (test code = 114 mmol/L 98-108 H 6211178166) CO2 TOTAL (test code = 21 mmol/L 23-31 L 2043992252) AGAP (test code = 3 2-16 0330977965) BUN (test code = 55 mg/dL 7-23 H 5965825401) GLUCOSE (test code = 119 mg/dL 70-110 H 6078723136) CREATININE (test code = 1.98 mg/dL 0.60-1.25 H 0313341007) TOTAL BILI (test code = 0.7 mg/dL 0.1-1.5 6897835654) CALCIUM (test code = 7.7 mg/dL 8.6-10.6 L 2133089456) T PROTEIN (test code = 6.0 g/dL 6.3-8.2 L 1082609602) ALBUMIN (test code = 2.5 g/dL 3.5-5.0 L 4555836155) ALK PHOS (test code = 85 U/L 34-122 0122068451) ALTv (test code = 23 U/L 5-50 1742-6) AST(SGOT) (test code = 33 U/L 13-40 7858375205) eGFR (test code = 34.1 mL/min/1.73m2 0767265765) RODRIGO (test code = RODRIGO) Association of [...] tests). Lab Interpretation Abnormal (test code = 50262-2) [facility] WITH [id number] 21:35:48 Test Item Value Reference Range Interpretation Comments WBC (test code = 4.62 See_Comment [Automated 4873-2) message] The sy stem which generated this result transmitted reference range : 4.20 - 10.70 10*3/?L. The reference range was not used to interpret this result as normal/abnormal . RBC (test code = 4.08 See_Comment L [Automated 339-8) message] The sy stem which generated this [...] RDW-SD (test code = 50.8 fL 38.5-51.6 95029-8) RDW-CV (test code = 16.6 % 12.1-15.4 H 788-0) PLT (test code = 170 See_Comment [Automated 447-3) message] The sy stem which generated this result transmitted reference range : 150 - 328 10*3/ ?L. The reference r kelin was not used to interpret this result as normal/abnormal . MPV (test code = 9.2 fL 9.8-13.0 L 09136-5) NRBC/100 WBC (test 0.0 See_Comment [Automat ed code = 2497966654) message] The system which generated this result transmitted reference range : 0.0 - 10.0 /100 WBCs. The refer ence range was not u sed to interpret th is result as normal/abnormal . NRBC x10^3 (test code See_Comment [Auto mated = 8500380117) message] The s ystem which generated this result transmitted reference range : 10*3/?L. The reference range was not used to interpret this result as normal/abnormal . GRAN MAT (NEUT) % 73.6 % (test code = 770-8) IMM GRAN % (test code 1.30 % = 7881156756) LYMPH % (test code = 12.6 % 736-9) MONO % (test code = 8.9 % 5905-5) EOS % (test code = 3.2 % 713-8) BASO % (test code = 0.4 % 706-2) GRAN MAT x10^3(ANC) 3.40 10*3/uL 1.99-6.95 (test code = 1052801866) IMM GRAN x10^3 (test 0.06 10*3/uL 0.00-0.06 code = 3935724470) LYMPH x10^3 (test code 0.58 10*3/uL 1.09-3.23 L = 731-0) MONO x10^3 (test code 0.41 10*3/uL 0.36-1.02 = 742-7) EOS x10^3 (test code = 0.15 10*3/uL 0.06-0.53 711-2) BASO x10^3 (test code 0.01-0.09 = 704-7) Lab Interpretation Abnormal (test code = 16410-1) [facility]leCULTURE, [id number] 09:54:12SPECIMEN NUMBER: [id number] CULTURE, URINE SPECIMEN NUMBER: [id number] SPECIMEN COMMENT: URINE SOURCE:URINE REPORT STATUS: FINAL FINAL REPORT: 03/28/2022 10-50,000 CFU/ML UROGENITAL ANUPAM PRESENT NO COMMON [id number] 04:49:09 Test Item Value Reference Range Interpretation Comments MAGNESIUM (test code = 2226) 2.2 MG/DL 1.6-2.6 COMPREHENSIVE METABOLIC [id number] 04:36:10 Test Item Value Reference Range Interpretation Comments GLUCOSE (test code = 96 MG/DL 70-99 2216) BUN (test code = 39 MG/DL 8-23 H 2207) CREATININE (test 2.06 MG/DL 0.80-1.40 H code = 221) eGFR (2020 CKD-EPI) 35 ML/MIN/1.73 >60 L (test code = 06770) CALC BUN/CREAT (test 19 RATIO 6-28 code = 2235) SODIUM (test code = 141 MEQ/L 804-170 8299) POTASSIUM (test code 4.3 MEQ/L 3.5-5.4 = [...] (test 0.8 RATIO 1.0-2.6 L code = 2234) BILIRUBIN, TOTAL 0.4 MG/DL See_Comment [Automated message] (test code = 2207) The syste m which generated this result transmit ros reference range : <=1.2. The refe rence range was not u sed to interpret th is result as normal/abnormal . ALKALINE PHOSPHATASE 94 U/L 40-123 (test code = 2204) AST (test code = 20 U/L 9-50 2217) ALT (test code = 16 U/L 5-50 2218) CBC W/AUTO DIFF WITH [id number] 02:15:32 Test Item Value Reference Range Interpretation [...] message] code = 1065) WBC'S The system [employer] generated this result transmitted ref erence range: [...] 0.00-0.11 UNLESS O THERWISE (test code = 47708) INDICATE D, ALL TESTING PERFORM ED [facility], I [address] [place] [address] [facility] DIRECTOR: SHERRI PLASENCIA M.D. CLIA NUMBER [id number] CAP ACCREDITATION N O. [id number] COMP. METABOLIC PANEL (69638)2022 01:50:35 Test Item Value Reference Range Interpretation Comments NA (test code = 136 mmol/L 135-145 6567813736) K (test code = 5.2 mmol/L 3.5-5.0 H 5369127809) CL (test code = 102 mmol/L 98-108 6196316837) CO2 TOTAL (test code = 26 mmol/L 23-31 5241020948) AGAP (test code = 2-16 2516854557) BUN (test code = 49 mg/dL 7-23 H 6948570789) GLUCOSE (test code = 143 mg/dL 70-110 H 7694345494) CREATININE (test code = 2.26 mg/dL 0.60-1.25 H 7782489546) TOTAL BILI (test code = 0.4 mg/dL 0.1-1.5 7104098728) CALCIUM (test code = 8.2 mg/dL 8.6-10.6 L 3577056004) T PROTEIN (test code = 6.8 g/dL 6.3-8.2 6388839646) ALBUMIN (test code = 2.9 g/dL 3.5-5.0 L 8271037319) ALK PHOS (test code = 101 U/L 34-122 0332954184) ALTv (test code = 14 U/L 5-50 1742-6) AST(SGOT) (test code = 21 U/L 13-40 0806022370) eGFR (test code = mL/min/1.73m2 4213752153) RODRIGO (test code = RODRIGO) Association of [...] tests). Lab Interpretation Abnormal (test code = 60661-4) [facility]lePROTHROMBIN TIME / [id number] 01:37:54 Test Item Value Reference Range Interpretation Comments PROTIME PATIENT (test See_Comment H [Auto mated message] code = 5964-2) The system [employer] generated this result transmitted ref erence range: 10.1 - 1 2.6 Seconds. The reference range was not used to int erpret this result as normal/abnormal . INR (test code = 6301-6) Nor mal INR <1.1; Warfarin Therap eutic range 2.0 to 3. 0 or 2.5 to 3.5, dep ending upon the indica tions. Lab Interpretation (test Abnormal code = 79591-7) [facility] THRMPLAS [id number] 01:37:54 Test Item Value Reference Range Interpretation Comments APTT Patient (test code See_Comment H [Au tomated message] = 3173-2) The system [employer] generated this result transmitted ref erence range: 26 - 36 Seconds. The reference range was not used to int erpret this result as normal/abnormal . Lab Interpretation (test Abnormal code = 81011-7) [facility] WITH [id number] 01:33:12 Test Item Value Reference Range Interpretation [...] (test code = 54.2 fL 38.5-51.6 H 24960-6) RDW-CV (test code = 19.4 % 12.1-15.4 H 788-0) PLT (test code = See_Comment [Automated 777-3) message] The sy stem which generated this result transmitted reference range : 150 - 328 10*3/ ?L. The reference r kelin was not used to interpret this result as normal/abnormal . MPV (test code = 9.2 fL 9.8-13.0 L 32588-1) NRBC/100 WBC (test See_Comment [Automat ed code = 9794810092) message] The system which generated this result transmitted reference range : 0.0 - 10.0 /100 WBCs. The refer ence range was not u sed to interpret th is result as normal/abnormal . NRBC x10^3 (test code See_Comment [Auto mated = 5505396898) message] The s ystem which generated this result transmitted reference range : 10*3/?L. The reference range was not used to interpret this result as normal/abnormal . GRAN MAT (NEUT) % 75.8 % (test code = 770-8) IMM GRAN % (test code 0.80 % = 0111723776) LYMPH % (test code = 12.1 % 736-9) MONO % (test code = 8.3 % 5905-5) EOS % (test code = 2.5 % 713-8) BASO % (test code = 0.5 % 706-2) GRAN MAT x10^3(ANC) 4.56 10*3/uL 1.99-6.95 (test code = 1650583734) IMM GRAN x10^3 (test 0.05 10*3/uL 0.00-0.06 code = 9963020872) LYMPH x10^3 (test code 0.73 10*3/uL 1.09-3.23 L = 731-0) MONO x10^3 (test code 0.50 10*3/uL 0.36-1.02 = 742-7) EOS x10^3 (test code = 0.15 10*3/uL 0.06-0.53 711-2) BASO x10^3 (test code 0.03 10*3/uL 0.01-0.09 = 704-7) Lab Interpretation Abnormal (test code = 90970-3) [facility] GLU[facility] (AUTOMATED)2021-12-28 13:35:14 Test Item Value Reference Range Interpretation Comments POCT GLU (test code = 3637196869) 160 mg/dL 70-110 H Lab Interpretation (test code = Abnormal 21790-6) [facility] METABOLIC PANEL (NA, K, CL, CO2, GLUCOSE, BUN, CREATININE, CA)2021-12-28 09:59:31 Test Item Value Reference Range Interpretation Comments NA (test code = 135 mmol/L 135-145 3024071575) K (test code = 3.8 mmol/L 3.5-5 9319467202) CL (test code = 107 mmol/L 98-108 9956439283) CO2 TOTAL (test code = 25 mmol/L 23-31 1351263048) AGAP (test code = 2-16 9103423962) BUN (test code = 42 mg/dL 7-23 H 7289562556) GLUCOSE (test code = 150 mg/dL 70-110 H 1159312342) CREATININE (test code = 2.01 mg/dL 0.6-1.25 H 8046126053) CALCIUM (test code = 7.6 mg/dL 8.6-10.6 L 0265406968) eGFR (test code = mL/min/1.73m2 7468928529) RODRIGO (test code = RODRIGO) Association of [...] tests). Lab Interpretation Abnormal (test code = 24198-5) [facility] WITH [id number] 09:37:28 Test Item Value Reference Range Interpretation Comments WBC (test code = See_Comment L [Automated 5190-2) message] The sy stem which generated this result transmitted reference range : 4.20 - 10.70 10*3/?L. The reference range was not used to interpret this result as normal/abnormal . RBC (test code = See_Comment L [Automated 419-8) message] The sy stem which generated this [...] (test code = 52.0 fL 38.5-51.6 H 89111-5) RDW-CV (test code = 19.2 % 12.1-15.4 H 788-0) PLT (test code = See_Comment [Automated 777-3) message] The sy stem which generated this result transmitted reference range : 150 - 328 10*3/ ?L. The reference r kelin was not used to interpret this result as normal/abnormal . MPV (test code = 9.6 fL 9.8-13 L 46417-2) NRBC/100 WBC (test See_Comment [Automat ed code = 7269855468) message] The system which generated this result transmitted reference range : 0.0 - 10.0 /100 WBCs. The refer ence range was not u sed to interpret th is result as normal/abnormal . NRBC x10^3 (test code See_Comment [Auto mated = 5150578687) message] The s ystem which generated this result transmitted reference range : 10*3/?L. The reference range was not used to interpret this result as normal/abnormal . GRAN MAT (NEUT) % 75.3 % (test code = 770-8) IMM GRAN % (test code 0.60 % = 2425674439) LYMPH % (test code = 11.9 % 736-9) MONO % (test code = 9.6 % 5905-5) EOS % (test code = 2.3 % 713-8) BASO % (test code = 0.3 % 706-2) GRAN MAT x10^3(ANC) 2.34 10*3/uL 1.99-6.95 (test code = 3095572375) IMM GRAN x10^3 (test 0-0.06 code = 0760094814) LYMPH x10^3 (test code 0.37 10*3/uL 1.09-3.23 L = 731-0) MONO x10^3 (test code 0.30 10*3/uL 0.36-1.02 L = 742-7) EOS x10^3 (test code = 0.07 10*3/uL 0.06-0.53 711-2) BASO x10^3 (test code 0.01-0.09 = 704-7) Lab Interpretation Abnormal (test code = 42001-5) [facility] GLUCOSE (AUTOMATED)2021-12-28 00:57:50 Test Item Value Reference Range Interpretation Comments POCT GLU (test code = 3930095492) 146 mg/dL 70-110 H Lab Interpretation (test code = Abnormal 90930-9) [facility] GLUCOSE (AUTOMATED)2021-12-27 21:58:17 Test Item Value Reference Range Interpretation Comments POCT GLU (test code = 3662067484) 125 mg/dL 70-110 H Lab Interpretation (test code = Abnormal 36762-1) [facility] GLUCOSE (AUTOMATED)2021-12-27 16:47:36 Test Item Value Reference Range Interpretation Comments POCT GLU (test code = 8285333161) 121 mg/dL 70-110 H Lab Interpretation (test code = Abnormal 18566-0) [facility] GLUCOSE (AUTOMATED)2021-12-27 12:53:58 Test Item Value Reference Range Interpretation Comments POCT GLU (test code = 0630067586) 114 mg/dL 70-110 H Lab Interpretation (test code = Abnormal 15057-9) [facility] GLUCOSE (AUTOMATED)2021-12-27 01:17:27 Test Item Value Reference Range Interpretation Comments POCT GLU (test code = 4392880510) 184 mg/dL 70-110 H Lab Interpretation (test code = Abnormal 50277-1) [facility] GLUCOSE (AUTOMATED)2021-12-26 21:25:07 Test Item Value Reference Range Interpretation Comments POCT GLU (test code = [id number]) 151 mg/dL 70-110 H Lab Interpretation (test code = Abnormal 34104-4) [facility] GLUCOSE (AUTOMATED)2021-12-26 17:40:52 Test Item Value Reference Range Interpretation Comments POCT GLU (test code = [id number]) 148 mg/dL 70-110 H Lab Interpretation (test code = Abnormal 95547-4) [facility] GLUCOSE (AUTOMATED)2021-12-26 12:54:00 Test Item Value Reference Range Interpretation Comments POCT GLU (test code = [id number]) 150 mg/dL 70-110 H Lab Interpretation (test code = Abnormal 84063-3) [facility] GLUCOSE (AUTOMATED)2021-12-26 10:22:39 Test Item Value Reference Range Interpretation Comments POCT GLU (test code = 9795718960) 150 mg/dL 70-110 H Lab Interpretation (test code = Abnormal 07642-9) [facility] GLUCOSE (AUTOMATED)2021-12-26 01:21:28 Test Item Value Reference Range Interpretation Comments POCT GLU (test code = 9106924832) 136 mg/dL 70-110 H Lab Interpretation (test code = Abnormal 50784-3) [facility] METABOLIC PANEL (NA, K, CL, CO2, GLUCOSE, BUN, CREATININE, CA)2021-12-14 22:24:31 Test Item Value Reference Range Interpretation Comments NA (test code = 135 mmol/L 135-145 3664842109) K (test code = 5.5 mmol/L 3.5-5 H 2164836186) CL (test code = 105 mmol/L 98-108 6334990821) CO2 TOTAL (test code = 21 mmol/L 23-31 L 6453324038) AGAP (test code = 2-16 0167828598) BUN (test code = 44 mg/dL 7-23 H 9516376078) GLUCOSE (test code = 164 mg/dL 70-110 H 1742558116) CREATININE (test code = 1.79 mg/dL 0.6-1.25 H 1144863648) CALCIUM (test code = 7.9 mg/dL 8.6-10.6 L 4535556063) eGFR (test code = mL/min/1.73m2 3062034848) RODRIGO (test code = RODRIGO) Association of [...] tests). Lab Interpretation Abnormal (test code = 20383-3) [facility] WITH [id number] 22:14:09 Test Item Value Reference Range Interpretation Comments WBC (test code = See_Comment [Automated 9786-2) message] The sy stem which generated this result transmitted reference range : 4.20 - 10.70 10*3/?L. The reference range was not used to interpret this result as normal/abnormal . RBC (test code = See_Comment L [Automated 578-8) message] The sy stem which generated this [...] (test code = 52.1 fL 38.5-51.6 H 92652-1) RDW-CV (test code = 20.0 % 12.1-15.4 H 788-0) PLT (test code = See_Comment [Automated 777-3) message] The sy stem which generated this result transmitted reference range : 150 - 328 10*3/ ?L. The reference r kelin was not used to interpret this result as normal/abnormal . MPV (test code = 9.8 fL 9.8-13 57111-9) NRBC/100 WBC (test See_Comment [Automat ed code = 0552944610) message] The system which generated this result transmitted reference range : 0.0 - 10.0 /100 WBCs. The refer ence range was not u sed to interpret th is result as normal/abnormal . NRBC x10^3 (test code See_Comment [Auto mated = 1770394630) message] The s ystem which generated this result transmitted reference range : 10*3/?L. The reference range was not used to interpret this result as normal/abnormal . GRAN MAT (NEUT) % 79.6 % (test code = 770-8) IMM GRAN % (test code 0.90 % = 7056222299) LYMPH % (test code = 10.6 % 736-9) MONO % (test code = 7.4 % 5905-5) EOS % (test code = 1.2 % 713-8) BASO % (test code = 0.3 % 706-2) GRAN MAT x10^3(ANC) 4.60 10*3/uL 1.99-6.95 (test code = 3349801368) IMM GRAN x10^3 (test 0.05 10*3/uL 0-0.06 code = 4201210575) LYMPH x10^3 (test code 0.61 10*3/uL 1.09-3.23 L = 731-0) MONO x10^3 (test code 0.43 10*3/uL 0.36-1.02 = 742-7) EOS x10^3 (test code = 0.07 10*3/uL 0.06-0.53 711-2) BASO x10^3 (test code 0.01-0.09 = 704-7) Lab Interpretation Abnormal (test code = 11012-6) [facility] GLUCOSE (AUTOMATED)2021-12-09 16:40:51 Test Item Value Reference Range Interpretation Comments POCT GLU (test code = 7056705950) 200 mg/dL 70-110 H Lab Interpretation (test code = Abnormal 14267-7) [facility] GLUCOSE (AUTOMATED)2021-12-09 12:53:24 Test Item Value Reference Range Interpretation Comments POCT GLU (test code = 1415754453) 197 mg/dL 70-110 H Lab Interpretation (test code = Abnormal 22656-3) [facility] GLUCOSE (AUTOMATED)2021-12-09 01:58:46 Test Item Value Reference Range Interpretation Comments POCT GLU (test code = 4597510501) 138 mg/dL 70-110 H Lab Interpretation (test code = Abnormal 90367-0) [facility] GLUCOSE (AUTOMATED)2021-12-08 22:02:54 Test Item Value Reference Range Interpretation Comments POCT GLU (test code = 1136751450) 123 mg/dL 70-110 H Lab Interpretation (test code = Abnormal 81388-0) [facility] GLUCOSE (AUTOMATED)2021-12-08 17:18:39 Test Item Value Reference Range Interpretation Comments POCT GLU (test code = 4290366480) 200 mg/dL 70-110 H Lab Interpretation (test code = Abnormal 56893-8) [facility] GLUCOSE (AUTOMATED)2021-12-08 14:20:51 Test Item Value Reference Range Interpretation Comments POCT GLU (test code = 8217995789) 189 mg/dL 70-110 H Lab Interpretation (test code = Abnormal 83060-6) [facility] GLUCOSE (AUTOMATED)2021-12-08 02:14:54 Test Item Value Reference Range Interpretation Comments POCT GLU (test code = 4778029659) 276 mg/dL 70-110 H Lab Interpretation (test code = Abnormal 97216-3) [facility] 00:06:25 Test Item Value Reference Range Interpretation Comments HGB A1C (test code = 6.6 % 4-5.7 H 4548-4) RODRIGO (test code = RODRIGO) Reference RangesNormal: <5.7%Prediabetes: 5.7 - 6.4%Diabetes: > 6.5% Lab Interpretation (test Abnormal code = 79499-9) [facility] [id number] 23:59:59 Test Item Value Reference Range Interpretation Comments MAGNESIUM (test code = 0117886984) 2.6 mg/dL 1.7-2.4 H Lab Interpretation (test code = Abnormal 14747-3) [facility] (Total Cholesterol, Triglycerides, HDL) - [id number] 23:59:59 Test Item Value Reference Range Interpretation Comments CHOL (test code = 106 mg/dL 120-200 L 7626328145) HDL (test code = 20 mg/dL See_Comment L [Automated message] 4057479741) The system [employer] generated this result transmit ros reference range : >=40. The refer ence range was not u sed to interpret th is result as normal/abnormal . HDLC RATIO (test code = See_Comment H [Au tomated message] 0392207567) The system [employer] generated this result transmit ros reference range : <=5.0. The refe rence range was not u sed to interpret th is result as normal/abnormal . TRIG (test code = 86 mg/dL 30-170 9324473674) LDL CHOL (test code = 69 mg/dL See_Comment [Auto mated message] 49770-2) The system [employer] generated this result transmit ros reference range : <=160. The refe rence range was not u sed to interpret th is result as normal/abnormal . VLDL (test code = 17 mg/dL 5-60 9619101865) Lab Interpretation (test Abnormal code = 03717-3) [facility]le[facility]osphorus [id number] 23:59:39 Test Item Value Reference Range Interpretation Comments PHOSPHORUS (test code = 1292198494) 4.9 mg/dL 2.5-5 Lab Interpretation (test code = Normal 86793-2) [facility] [id number] 21:09:22 Test Item Value Reference Range Interpretation Comments NT-proBNP (test code 1600 pg/mL See_Comment H [Autom ated = 2710557027) message] The system which generated this result transmitted reference range : <=125. The reference range was not used to interpret this result as normal/abnormal . RODRIGO (test code = RODRIGO) Biotin has been reported to cause a negative bias, interpret results relative to patient's use of biotin. Lab Interpretation Abnormal (test code = 78057-6) [facility]le[facility]ine [id number] 19:56:54 Test Item Value Reference Range Interpretation Comments CK (test code = 5153779814) 28 U/L 33-194 L Lab Interpretation (test code = Abnormal 96384-5) [facility]le[facility] METABOLIC PANEL (45253)2021-12-07 16:38:09 Test Item Value Reference Range Interpretation Comments NA (test code = 137 mmol/L 135-145 3938485869) K (test code = 5.4 mmol/L 3.5-5 H 7254915218) CL (test code = 106 mmol/L 98-108 2290166901) CO2 TOTAL (test code = 23 mmol/L 23-31 3306247913) AGAP (test code = 2-16 1868007582) BUN (test code = 49 mg/dL 7-23 H 7807548578) GLUCOSE (test code = 154 mg/dL 70-110 H 0053870391) CREATININE (test code = 2.34 mg/dL 0.6-1.25 H 7812479880) TOTAL BILI (test code = 0.6 mg/dL 0.1-1.2 0708679494) CALCIUM (test code = 8.0 mg/dL 8.6-10.6 L 6630765465) T PROTEIN (test code = 6.1 g/dL 6.3-8.2 L 7154771644) ALBUMIN (test code = 2.5 g/dL 3.5-5 L 7485475655) ALK PHOS (test code = 100 U/L 34-122 6086908945) ALTv (test code = 15 U/L 5-50 1742-6) AST(SGOT) (test code = 23 U/L 13-40 5801226243) eGFR (test code = mL/min/1.73m2 0674560850) RODRIGO (test code = RODRIGO) Association of [...] tests). Lab Interpretation Abnormal (test code = 22163-9) [facility]le[facility]IV[facility] PARTIAL THRMPLAS [id number] 16:37:12 Test Item Value Reference Range Interpretation Comments APTT Patient (test See_Comment [Automat ed code = 3173-2) message] The system which generated this result transmitted reference range : 23 - 38 Seconds . The reference range was not used to interpr et this result as normal/abnormal . RODRIGO (test code = RODRIGO) The [facility] patient population mean normal value for aPTT is 30 seconds. Lab Interpretation Normal (test code = 35254-0) [facility]lePROTHROMBIN TIME / [id number] 16:35:10 Test Item Value Reference Range Interpretation [...] tions. Lab Interpretation (test Abnormal code = 50808-5) [facility] WITH [id number] 16:11:30 Test Item Value Reference Range Interpretation [...] (test code = 53.5 fL 38.5-51.6 H 67934-6) RDW-CV (test code = 20.5 % 12.1-15.4 H 788-0) PLT (test code = See_Comment [Automated 777-3) message] The sy stem which generated this result transmitted reference range : 150 - 328 10*3/ ?L. The reference r kelin was not used to interpret this result as normal/abnormal . MPV (test code = 10.0 fL 9.8-13 87002-9) NRBC/100 WBC (test See_Comment [Automat ed code = 3527697752) message] The system which generated this result transmitted reference range : 0.0 - 10.0 /100 WBCs. The refer ence range was not u sed to interpret th is result as normal/abnormal . NRBC x10^3 (test code See_Comment [Auto mated = 5174079022) message] The s ystem which generated this result transmitted reference range : 10*3/?L. The reference range was not used to interpret this result as normal/abnormal . GRAN MAT (NEUT) % 82.5 % (test code = 770-8) IMM GRAN % (test code 0.90 % = 1044087085) LYMPH % (test code = 7.8 % 736-9) MONO % (test code = 7.3 % 5905-5) EOS % (test code = 1.2 % 713-8) BASO % (test code = 0.3 % 706-2) GRAN MAT x10^3(ANC) 5.74 10*3/uL 1.99-6.95 (test code = 0027204517) IMM GRAN x10^3 (test 0.06 10*3/uL 0-0.06 code = 9687788192) LYMPH x10^3 (test code 0.54 10*3/uL 1.09-3.23 L = 731-0) MONO x10^3 (test code 0.51 10*3/uL 0.36-1.02 = 742-7) EOS x10^3 (test code = 0.08 10*3/uL 0.06-0.53 711-2) BASO x10^3 (test code 0.01-0.09 = 704-7) Lab Interpretation Abnormal (test code = 78945-5) [facility]"
[2023-01-03 12:35] LABS: Absolute Lymphocytes (CBC) 0.5 K/uL (0.7-4.9); Hematocrit 35.1 % (39.6-49.0); Lymphocytes % 9.9 % (15.3-44.8); MCV 84.2 fL (80-100); MPV 7.3 fL (7.6-11.3); Platelets 150 thou/uL (152-406); RBC Red Blood Cell Count 4.17 M/uL (4.33-5.43)
[2023-01-03 12:43] LABS: Protime INR 1.14
[2023-01-03 12:54] LABS: Albumin 2.5 g/dL (3.4-5.0); Bilirubin Total 0.6 mg/dL (0.2-1.0); Potassium 4.7 mEq/L (3.5-5.1); Protein, Total 6.8 g/dL (6.4-8.2)
--- NOTE | 2023-01-03 14:08 | ER ---
Nurse's Notes [facility] Name: Mc Willingham Age: 67 yrs Sex: Male : 1955 Arrival Date: 01/03/2023 Time: 11:15 Bed 18 Private MD: Diagnosis: Alcoholic cirrhosis of liver with ascites Presentation: 01/03 11:34 Chief complaint: Abdominal swelling x 3 weeks, last had paracentesis 1 month ago. hb Coronavirus screen: At this time, the client does not indicate any symptoms associated with coronavirus-19. Ebola Screen: No symptoms or risks identified at this time. Initial Sepsis Screen: Does the patient meet any 2 criteria? No. Patient's initial sepsis screen is negative. Does the patient have a suspected source of infection? No. Patient's initial sepsis screen is negative. Risk Assessment: Do you want to hurt yourself or someone else? Patient reports no desire to harm self or others. Onset of symptoms was December 2022. 11:34 Method Of Arrival: Ambulatory hb 11:34 Acuity: POPPY 3 hb Historical: - Allergies: 11:36 No Known Drug Allergies; hb - Home Meds: 11:36 furosemide 40 mg Oral tablet 1 tab 2 times per day [Active]; Lactulose 30 Oral 2 times hb per day for constipation [Active]; spironolactone 25 mg Oral tablet 1 tab daily [Active]; - PMHx: 11:36 cirrhosis of liver; hb - Immunization history:: Adult Immunizations up to date. - Social history:: Smoking status: Patient denies any tobacco usage or history of. - Family history:: pertinent for. Screenin:50 [facility] ED Fall Risk Assessment (Adult) Score/Fall Risk Level 0 - 2 = Low Risk nj1 Oriented to surroundings, Maintained a safe environment, Hourly rounding (assess needs \T\ fall precautionary measures) done. 12:50 Abuse screen: Denies threats or abuse. Denies injuries from another. Nutritional nj1 screening: No deficits noted. Tuberculosis screening: No symptoms or risk factors identified. Assessment: 12:50 General: Appears in no apparent distress. comfortable, Behavior is calm, cooperative, nj1 appropriate for age. 12:50 Pain: Complains of pain in abdomen Pain currently is 8 out of 10 on a pain scale. nj1 Neuro: Level of Consciousness is awake, alert, obeys commands, Oriented to person, place, time, situation. Cardiovascular: Patient's skin is warm and dry. Respiratory: Airway is patent Respiratory effort is even, unlabored. GI: Abdomen is round distended, noted to have ascites. Vital Signs: 11:34 BP 132 / 92; Pulse 74; Resp 20; Temp 97.9(TE); Pulse Ox 99% on R/A; Weight 81.65 kg; hb Height 5 ft. 8 in. ; Pain 8/10; 11:34 Body Mass Index 27.37 (81.65 kg, 172.72 cm) hb 11:34 Pain Scale: Adult hb ED Course: 11:22 Patient arrived in ED. ts1 11:30 Bobby Crook MD is Attending Physician. rt 11:36 Triage completed. hb 11:37 Arm band placed on. hb 12:27 PT-INR Sent. bc6 12:27 CMP Sent. bc6 12:27 CBC with Diff Sent. bc6 13:15 Paracentesis. nj1 14:10 IV discontinued, intact, bleeding controlled. nj1 14:20 Alice Novak, RN is Primary Nurse. nj1 Administered Medications: No medications were administered Intake: 14:10 6000 ml out from paracentesis nj1 Outcome: 14:07 Discharge ordered by MD. rt 14:25 Patient left the ED. ld1 Signatures: Maddy He, RN ALISSON Yola Martinez RN RN ld1 Bobby Crook MD MD rt Rosalind Lorenzana bc6 Alice Novak RN RN nj1 Danielle Sullivan PAS PAS ts1 Corrections: (The following items were deleted from the chart) 11:37 11:34 BP 132 / 92; Pulse 74bpm; Resp 20bpm; Pulse Ox 99% RA; Temp 97.9F Temporal; hb hb
--- NOTE | 2023-01-03 14:08 | EDPHYS ---
Physician Documentation [facility] Name: Mc Willingham Age: 67 yrs Sex: Male : 1955 Arrival Date: 01/03/2023 Time: 11:15 Bed 18 Private MD: ED Physician Bobby Crook HPI: 01/03 11:58 This 67 yrs old Male presents to ER via Ambulatory with complaints of rt Abdominal Pain. 11:58 Patient with history of liver failure with ascites presents to the ED with worsening rt abdominal swelling, pain associate with nausea ascites. States that he has not been drained in about 1 month. Denies other acute complaints at this time, symptoms are moderate severity, no other aggravating elevating factors.. Historical: - Allergies: 11:36 No Known Drug Allergies; hb - Home Meds: 11:36 furosemide 40 mg Oral tablet 1 tab 2 times per day [Active]; Lactulose 30 Oral 2 times hb per day for constipation [Active]; spironolactone 25 mg Oral tablet 1 tab daily [Active]; - PMHx: 11:36 cirrhosis of liver; hb - Immunization history:: Adult Immunizations up to date. - Social history:: Smoking status: Patient denies any tobacco usage or history of. - Family history:: pertinent for. ROS: 11:58 Constitutional: Negative for fever, chills, and weight loss, Eyes: Negative for injury, rt pain, redness, and discharge, Cardiovascular: Negative for chest pain, palpitations, and edema, Respiratory: Negative for shortness of breath, cough, wheezing, and pleuritic chest pain, MS/Extremity: Negative for injury and deformity, Skin: Negative for injury, rash, and discoloration, Neuro: Negative for headache, weakness, numbness, tingling, and seizure, Psych: Negative for depression, anxiety, suicide ideation, homicidal ideation, and hallucinations, 11:58 Abdomen/GI: Positive for abdominal pain, abdominal distension, Exam: 11:58 Constitutional: This is a well developed, well nourished patient who is awake, alert, rt and in no acute distress. Head/Face: Normocephalic, atraumatic. Chest/axilla: Normal chest wall appearance and motion. Nontender with no deformity. No lesions are appreciated. Cardiovascular: Regular rate and rhythm with a normal S1 and S2. No gallops, murmurs, or rubs. Normal PMI, no JVD. No pulse deficits. Respiratory: Lungs have equal breath sounds bilaterally, clear to auscultation and percussion. No rales, rhonchi or wheezes noted. No increased work of breathing, no retractions or nasal flaring. Skin: Warm, dry with normal turgor. Normal color with no rashes, no lesions, and no evidence of cellulitis. MS/ Extremity: Pulses equal, no cyanosis. Neurovascular intact. Full, normal range of motion. Neuro: Awake and alert, GCS 15, oriented to person, place, time, and situation. Cranial nerves II-XII grossly intact. Motor strength 5/5 in all extremities. Sensory grossly intact. Cerebellar exam normal. Normal gait. Psych: Awake, alert, with orientation to person, place and time. Behavior, mood, and affect are within normal limits. 11:58 Abdomen/GI: Distended ascitic abdomen present, mild tenderness diffusely without rebound, guarding, Vital Signs: 11:34 BP 132 / 92; Pulse 74; Resp 20; Temp 97.9(TE); Pulse Ox 99% on R/A; Weight 81.65 kg; hb Height 5 ft. 8 in. ; Pain 8/10; 11:34 Body Mass Index 27.37 (81.65 kg, 172.72 cm) hb 11:34 Pain Scale: Adult hb Procedures: 14:12 Paracentesis: The risks and benefits of the procedure were discussed with the patient rt or guardian in detail, aseptic technique was employed throughout the procedure, the catheter was placed in the left lower quadrant, appoximately 6 liters of fluid was removed, the fluid was serous, the patient tolerated the procedure well, the patient did not experience any apparent complications. MDM: 11:37 Patient medically screened. rt 14:12 Differential diagnosis: Ascites, liver failure. Data reviewed: vital signs, nurses rt notes, lab test result(s). Test considered but Not performed: CT: Chronic ascites, pain is improving with paracentesis, CT scan not indicated. Counseling: I had a detailed discussion with the patient and/or guardian regarding the historical points, exam findings, and any diagnostic results supporting the discharge/admit diagnosis, lab results, radiology results, the need for outpatient follow up, to return to the emergency department if symptoms worsen or persist or if there are any questions or concerns that arise at home. 01/03 11:37 Order name: CBC with Diff; Complete Time: 12:55 rt 01/03 11:37 Order name: CMP; Complete Time: 12:55 rt 01/03 11:37 Order name: PT-INR; Complete Time: 12:55 rt Administered Medications: No medications were administered Disposition Summary: 01/03/23 14:07 Discharge Ordered Notes: Location: Home rt Problem: an acute exacerbation rt Symptoms: have improved rt Condition: Stable rt Diagnosis - Alcoholic cirrhosis of liver with ascites rt Followup: rt - With: Private Physician - When: 2 - 3 days - Reason: Discharge Instructions: - Discharge Summary Sheet rt - Ascites rt - Cirrhosis rt - Paracentesis rt Forms: - Medication Reconciliation Form rt - Thank You Letter rt - Antibiotic Education rt - Prescription Opioid Use rt - Patient Portal Instructions rt - Leadership Thank You Letter rt Signatures: Dispatcher [employer] Maddy Yusuf RN RN Bobby Gordon MD MD rt
[2023-01-03 15:00] VITALS: BP 132/92; TEMP 97.9; O2SAT 99
== END 2023-01-03 14:25 | disposition home or self-care (01) ==
LOC: ER 11:15
PROC: 0W9G3ZX Drainage of Peritoneal Cavity, Percutaneous Approach, Diagnostic (ICD-10-PCS; principal; 2023-01-03)
DX: K70.31 Alcoholic cirrhosis of liver with ascites (principal)
CPT/HCPCS: 36415; 80053; 85025; 85610; 99282

== ENCOUNTER 2023-09-16 13:47 | Emergency (ER) | payer SELFPAY ==
--- NOTE | 2023-09-16 15:31 | RAD REPORT ---
EXAM DESCRIPTION: US - Paracentesis Proc Guidance - 09/16/2023 3:17 pm CLINICAL HISTORY: ascites Ascites COMPARISON: Paracentesis Proc Guidance dated 09/20/2022 FINDINGS: Informed consent was obtained and time-out was performed. Patient's abdomen was prepped and draped in the usual sterile fashion. 1% lidocaine was used for loca l anesthetic purposes. A small skin incision was made right lower quadrant. A paracentesis catheter was guided into the jessica anirudh cavity under sonographic guidance. A small amount of fluid was sent for requested lab studies. A large volume paracentesis was performed . The patient tolerated the procedure well. Patient was administered IV albumin per protocol following the procedure. IMPRESSION: Successful ultrasound-guided paracentesis.
--- NOTE | 2023-09-16 21:04 | ER ---
Nurse's Notes [facility] Name: Mc Willingham Age: 68 yrs Sex: Male : 1955 Arrival Date: 09/16/2023 Time: 13:47 Bed 20 Private MD: Diagnosis: Other ascites Presentation: 09/15 13:54 Chief complaint: Patient states: "I'm full of fluid and need to get drained". as6 Coronavirus screen: At this time, the client does not indicate any symptoms associated with coronavirus-19. Ebola Screen: No symptoms or risks identified at this time. Initial Sepsis Screen: Does the patient meet any 2 criteria? No. Patient's initial sepsis screen is negative. Does the patient have a suspected source of infection? No. Patient's initial sepsis screen is negative. Risk Assessment: Do you want to hurt yourself or someone else? Patient reports no desire to harm self or others. Onset of symptoms was September 16, 2023. 13:54 Method Of Arrival: Ambulatory as6 13:54 Acuity: POPPY 3 as6 Historical: - Allergies: 13:55 No Known Allergies; as6 - PMHx: 13:55 cirrhosis of liver; Hypertensive disorder; as6 - PSHx: 13:55 None; as6 - Immunization history:: Adult Immunizations up to date. - Infectious Disease History:: Denies. - Social history:: Smoking status: Patient denies any tobacco usage or history of. Screenin:44 [facility] ED Fall Risk Assessment (Adult) History of falling in the last 3 months, kc6 including since admission No falls in past 3 months (0 pts) Confusion or Disorientation No (0 pts) Intoxicated or Sedated No (0 pts) Impaired Gait No (0 pts) Mobility Assist Device Used No (0 pt) Altered Elimination No (0 pt) Score/Fall Risk Level 0 - 2 = Low Risk. Abuse screen: Denies threats or abuse. Denies injuries from another. Nutritional screening: No deficits noted. Tuberculosis screening: No symptoms or risk factors identified. Assessment: 14:40 General: Appears in no apparent distress. comfortable, well groomed, well developed, kc6 Behavior is calm, cooperative, appropriate for age. Pain: Denies pain. Neuro: Level of Consciousness is awake, alert, obeys commands, Oriented to person, place, time, situation, Appropriate for age. Cardiovascular: Capillary refill < 3 seconds. Respiratory: Airway is patent Trachea midline Respiratory effort is even, unlabored, Respiratory pattern is regular, symmetrical. GI: Abdomen is round distended, noted to have ascites. : No signs and/or symptoms were reported regarding the genitourinary system. EENT: No signs and/or symptoms were reported regarding the EENT system. Derm: No signs and/or symptoms reported regarding the dermatologic system. Skin is intact, is healthy with good turgor, Skin is normal. Musculoskeletal: No signs and/or symptoms reported regarding the musculoskeletal system. Circulation, motion, and sensation intact. Capillary refill < 3 seconds, Range of motion: intact in all extremities. 14:43 Reassessment: pt to radiology via wheelchair with tech and family member. kc6 15:31 Reassessment: pt returned from paracentesis at this time. Dr. Day notified. kc6 Vital Signs: 13:54 BP 133 / 83; Pulse 73; Resp 18; Temp 97.7; Pulse Ox 98% ; Weight 79.38 kg; Height 5 ft. as6 8 in. ; Pain 8/10; 13:54 Body Mass Index 26.61 (79.38 kg, 172.72 cm) as6 13:54 Pain Scale: Adult as6 ED Course: 13:51 Patient arrived in ED. mg5 13:54 Arm band placed on left wrist. as6 13:55 Triage completed. as6 14:15 Tyler Day MD is Attending Physician. rn 14:27 Henna Moseley, ALISSON is Primary Nurse. kc6 14:44 Patient has correct armband on for positive identification. Bed in low position. Call kc6 light in reach. Side rails up X 1. Adult w/ patient. Pulse ox on. NIBP on. Pillow given. 15:19 Paracentesis Proc Guidance In Process Unspecified. EDMS Administered Medications: No medications were administered Outcome: 18:01 Discharge ordered by . rn 18:01 Patient left the ED. eb Signatures: Dispatcher [employer] EDMS Tyler Day MD MD rn Botello, Elizabeth eb Slawson, Ashby, RN RN as6 Henna Moseley RN RN [facility] Maite Fletcher mg5
--- NOTE | 2023-09-16 21:04 | EDPHYS ---
Physician Documentation [facility] Name: Mc Willingham Age: 68 yrs Sex: Male : 1955 Arrival Date: 09/16/2023 Time: 13:47 Bed 20 Private MD: NORMAN Physician Tyler Day HPI: 09/15 18:00 This 68 yrs old Male presents to ER via Ambulatory with complaints of rn Abdominal Swelling. 18:00 See paper charting, done during downtime. rn Historical: - Allergies: 13:55 No Known Allergies; as6 - PMHx: 13:55 cirrhosis of liver; Hypertensive disorder; as6 - PSHx: 13:55 None; as6 - Immunization history:: Adult Immunizations up to date. - Infectious Disease History:: Denies. - Social history:: Smoking status: Patient denies any tobacco usage or history of. Vital Signs: 13:54 BP 133 / 83; Pulse 73; Resp 18; Temp 97.7; Pulse Ox 98% ; Weight 79.38 kg; Height 5 ft. as6 8 in. ; Pain 8/10; 13:54 Body Mass Index 26.61 (79.38 kg, 172.72 cm) as6 13:54 Pain Scale: Adult as6 MDM: 14:15 Patient medically screened. rn 09/15 14:38 Order name: Paracentesis Proc Guidance EDMS Administered Medications: No medications were administered Disposition Summary: 09/16/23 18:01 Discharge Ordered Notes: Location: Home rn Problem: new rn Symptoms: have improved rn Condition: Stable rn Diagnosis - Other ascites rn Followup: rn - With: Private Physician - When: As needed - Reason: Recheck today's complaints, Re-evaluation by your physician Discharge Instructions: - Discharge Summary Sheet rn - Ascites rn Forms: - Medication Reconciliation Form rn - Antibiotic corn lab technician - Prescription Opioid Use rn - Patient Portal Instructions rn - Leadership Thank You Letter rn Signatures: Dispatcher [employer] EDMS Tyler Day MD MD rn Slawson, Ashby, RN RN as6
[2023-09-16 21:16] VITALS: BP 133/83; TEMP 97.7; O2SAT 98
== END 2023-09-16 18:01 | disposition home or self-care (01) ==
LOC: ER 13:47
DX: R18.8 Other ascites (principal); K74.60 Unspecified cirrhosis of liver; I10 Essential (primary) hypertension
CPT/HCPCS: 49083; 99282

== ENCOUNTER 2023-12-09 13:17 | Emergency (ER) | payer SELFPAY ==
[2023-12-09 16:46] LABS: Absolute Eosinophils 0.2 K/uL (0-0.5); Absolute Lymphocytes (CBC) 0.5 K/uL (0.7-4.9); Absolute Monocytes 0.3 K/uL (0.1-1.3); Absolute Neutrophil 4.1 K/uL (1.8-8.0); Basophils % 0.5 % (0-1.3); Eosinophils % 4.2 % (0-4.4); Hematocrit 38.8 % (39.6-49.0); Hemoglobin 13.2 g/dL (13.6-17.9); Lymphocytes % 9.4 % (15.3-44.8); MCH 29.1 pg (27.0-35.0); MCV 85.8 fL (80-100); MPV 7.3 fL (7.6-11.3); Monocytes % 6.1 % (3.3-12.3); Neutrophils % 79.8 % (41.7-73.7); Nucleated Red Blood Cells % 0.1 % (0-0); Platelets 178 thou/uL (152-406); RBC Red Blood Cell Count 4.52 M/uL (4.33-5.43); Red Cell Distribution Width 15.1 % (12.1-15.2)
--- NOTE | 2023-12-09 16:58 | RAD REPORT ---
EXAMINATION: ONE VIEW CHEST XR CLINICAL INDICATION: Male, 68 years old.,ABDOMINAL DISTENTION TECHNIQUE: Frontal chest projection is submitted. Examination is limited by patient positioning and t echnique. COMPARISON: 10/12/2021 FINDINGS: Elevation of the left hemidiaphragm, with mild left basilar atelectasis. The lungs are well inflated and otherwise clear. No pneumothorax or sizable effusion. The heart is normal in size. IMPRESSION: No acute intrathoracic abnormalities.
[2023-12-09] MEDS ORDERED: MORPHINE 4 MG/ML SYR ONE (17:28)
[2023-12-09] MEDS ORDERED: ONDANSETRON 4 MG/2 ML VIAL ONE (17:28)
[2023-12-09 17:41] LABS: PT Prothrombin Time 12.8 SECONDS (9.4-12.5); Protime INR 1.15
[2023-12-09 17:55] LABS: Albumin 2.9 g/dL (3.4-5.0); Albumin/Globulin Ratio 0.7 (1.1-1.8); Anion Gap 10.3 mEq/L (5.0-15.0); Bilirubin Direct 0.2 mg/dL (0-0.2); Bilirubin Indirect, Calculated 0.6 mg/dL (0.2-0.8); Bilirubin Total 0.8 mg/dL (0.2-1.0); Globulin 4.4 g/dL (2.3-3.5); Magnesium 2.3 mg/dL (1.6-2.4); Potassium 4.3 mEq/L (3.5-5.1); Protein, Total 7.3 g/dL (6.4-8.2); Troponin High Sensitivity 6.3 pg/mL (<58.9)
--- NOTE | 2023-12-09 19:25 | RAD REPORT ---
EXAMINATION: Abdomen Pelvis Wo Contrast CLINICAL INDICATION: Male, 68 years old. Abdominal distention;Abd pain TECHNIQUE: CT abdomen and pelvis was performed, without IV contrast, as per department protocol. Axia l, sagittal and coronal reconstructions were obtained. One or more of the following dose reduction techniques were used: Automated exposure control, adjustment of the mA and kV according to the patien t size, and iterative reconstruction. Unless otherwise specified, incidental findings do not require dedicated imaging follow-up. COMPARISON: 09/18/2022 FINDINGS: The lack of intravenous contrast limits the sensitivity of this exam for evaluation of solid visceral organs, vascular structures, and retroperitoneum. LOWER CHEST: The visualized lung bases are clear. LIVER: Contour nodularity with relative caudate lobe hypertrophy suggesting cirrhosis again seen. No suspicious focal lesion of noncontrast evaluation. BILIARY SYSTEM: Cholelithiasis. No pericholecystic fluid or fat stranding. SPLEEN: Normal size. No focal lesion. PANCREAS: No mass, ductal dilation, or brandon-pancreatic fluid. ADRENALS: Normal; no mass. KIDNEYS AND URETERS: Normal size and contour. No hydronephrosis. URINARY BLADDER: Normal contour. GASTROINTESTINAL TRACT: No evidence of bowel obstruction, free air or abscess. At least Moderate free fluid throughout the abdomen. APPENDIX: Normal appendix. LYMPH NODES: No lymphadenopathy. MUSCULOSKELETAL: No acute or suspicious osseous abnormality. ADDITIONAL FINDINGS: Large umbilical hernia containing fluid with some peripheral septations, stable. Mild prostatomegaly. IMPRESSION: Stigmata of cirrhosis with at least moderate ascites again seen. Cholelithiasis and other incidental findings as above. No other acute or concerning abnormalities in the abdomen or pelvis, with evaluation limited by lack of IV contrast.
[2023-12-09 20:24] LABS: Specific Gravity 1.012 (1.005-1.030); Sqamous Epithelial None Seen /HPF (None Seen); Urine Bacteria <20 /HPF (<20); Urine Bilirubin NEGATIVE (Negative); Urine Blood Negative (Negative); Urine Clarity Clear (Clear); Urine Color Light-Yellow (Yellow); Urine Culture Reflex Order NOT NEEDED; Urine Glucose NEGATIVE (Negative); Urine Ketones NEGATIVE (Negative); Urine Microscopic Reflex YN ORDER UMIC; Urine Mucus Slight /HPF (None Seen); Urine Nitrite NEGATIVE (Negative); Urine Protein NEGATIVE (Negative); Urine RBC <5 /HPF (None Seen); Urine Urobilinogen Normal (Normal); Urine WBC <5 /HPF (<5); Urine Yeast (Budding) Trace /HPF (None Seen)
--- NOTE | 2023-12-09 20:26 | ER ---
Nurse's Notes [facility] Name: Mc Willingham Age: 68 yrs Sex: Male : 1955 Arrival Date: 12/09/2023 Time: 13:17 Bed 8 Private MD: Diagnosis: Alcoholic cirrhosis of liver with ascites Presentation: 12/08 13:38 Chief complaint: Patient states: has cirrhosis, needs an paracentesis, but has not been tm6 able to go to his doctor in [place]. Got his belly drained about 1 month ago. Ebola Screen: Patient negative for fever greater than or equal to 101.5 degrees Fahrenheit, and additional compatible Ebola Virus Disease symptoms Patient denies exposure to infectious person. Patient denies travel to an Ebola-affected area in the 21 days before illness onset. No symptoms or risks identified at this time. Initial Sepsis Screen: Does the patient meet any 2 criteria? No. Patient's initial sepsis screen is negative. Does the patient have a suspected source of infection? No. Patient's initial sepsis screen is negative. Risk Assessment: Do you want to hurt yourself or someone else? Patient reports no desire to harm self or others. Onset of symptoms is unknown. 13:38 Method Of Arrival: Ambulatory tm6 13:38 Acuity: POPPY 3 tm6 13:41 Coronavirus screen: Client denies travel out of the [place] in the last 14 days. tm6 Triage Assessment: 13:38 General: Appears uncomfortable, Behavior is calm, cooperative. Pain: Complains of pain tm6 in abdomen Pain currently is 9 out of 10 on a pain scale. EENT: No signs and/or symptoms were reported regarding the EENT system. Neuro: Level of Consciousness is awake, alert, obeys commands, Oriented to person, place, time, situation. Cardiovascular: Patient's skin is warm and dry. Respiratory: Airway is patent Respiratory effort is even, unlabored, Respiratory pattern is regular, symmetrical. GI: Abdomen is round distended, Reports lower abdominal pain, upper abdominal pain. : No signs and/or symptoms were reported regarding the genitourinary system. Derm: No signs and/or symptoms reported regarding the dermatologic system. Musculoskeletal: No signs and/or symptoms reported regarding the musculoskeletal system. Historical: - Allergies: 13:42 No Known Allergies; tm6 - PMHx: 13:42 cirrhosis of liver; Hypertensive disorder; tm6 - PSHx: 13:42 None; tm6 - Immunization history:: Client reports having NOT received the Covid vaccine. - Infectious Disease History:: Denies. - Social history:: Smoking status: Patient denies any tobacco usage or history of. Patient/guardian denies using alcohol. Screenin:35 [facility] ED Fall Risk Assessment (Adult) History of falling in the last 3 months, ph including since admission No falls in past 3 months (0 pts) Confusion or Disorientation No (0 pts) Intoxicated or Sedated No (0 pts) Impaired Gait Yes (1 pt) Mobility Assist Device Used Yes (1 pt) Altered Elimination No (0 pt) Score/Fall Risk Level 0 - 2 = Low Risk Oriented to surroundings, Maintained a safe environment, Hourly rounding (assess needs \T\ fall precautionary measures) done, Used ambulatory aids as needed (educated on \T\ assisted with). Abuse screen: Denies threats or abuse. Denies injuries from another. Nutritional screening: No deficits noted. Tuberculosis screening: No symptoms or risk factors identified. Assessment: 17:36 General: Appears in no apparent distress. Behavior is calm, cooperative. Pain: ph Complains of pain in abdomen. Neuro: Level of Consciousness is awake, alert, obeys commands, Oriented to person, place, time, situation. Cardiovascular: Capillary refill < 3 seconds in bilateral fingers Patient's skin is warm and dry. Respiratory: Reports shortness of breath Airway is patent Respiratory effort is even, unlabored, Respiratory pattern is regular, symmetrical. GI: Abdomen is distended, noted to have ascites, Bowel sounds present X 4 quads. Reports lower abdominal pain, upper abdominal pain. Derm: Skin is pink, warm \T\ dry. 19:15 Reassessment: Patient appears in no apparent distress at this time. Patient and/or kj2 family updated on plan of care and expected duration. Pain level reassessed. Patient is alert, oriented x 3, equal unlabored respirations, skin warm/dry/pink. 20:47 Reassessment: Patient appears in no apparent distress at this time. Patient and/or kj2 family updated on plan of care and expected duration. Pain level reassessed. Patient is alert, oriented x 3, equal unlabored respirations, skin warm/dry/pink. 21:12 Reassessment: report to ALISSON Witt \T\ [facility]. bm8 Vital Signs: 13:41 BP 138 / 90; Pulse 79; Resp 20; Temp 98.6(O); Pulse Ox 99% on R/A; MAP 105 mmHg; Weight tm6 80.74 kg; Height 5 ft. 8 in. ; Pain 9/10; 17:25 BP 174 / 96; Pulse 69; Resp 18; Pulse Ox 98% on R/A; ph 17:36 BP 157 / 88; Pulse 68; Resp 18; Pulse Ox 99% on R/A; ph 18:53 BP 146 / 88; Pulse 78; Resp 18; Pulse Ox 100% on R/A; ph 20:08 BP 143 / 96; Pulse 71; Resp 20; Pulse Ox 100% on R/A; kj2 20:47 BP 162 / 85; Pulse 69; Resp 20; Pulse Ox 100% on R/A; kj2 21:53 BP 137 / 84; Pulse 87; Resp 20; Temp 98.6; Pulse Ox 100% on R/A; Pain 0/10; bm8 13:41 Body Mass Index 27.06 (80.74 kg, 172.72 cm) tm6 13:41 Pain Scale: Adult tm6 21:53 Pain Scale: Adult bm8 Hamilton Coma Score: 21:53 Eye Response: spontaneous(4). Motor Response: obeys commands(6). Verbal Response: bm8 oriented(5). Total: 15. ED Course: 13:22 Patient arrived in ED. mg5 13:38 Arm band placed on right wrist. tm6 13:39 Triage completed. tm6 13:45 Mihai Gore PA is PHCP. cp 13:45 Mihai Lyons MD is Attending Physician. cp 15:05 XRAY Chest (1 view) In Process Unspecified. EDMS 16:39 Inserted saline lock: 20 gauge in left antecubital area, using aseptic technique. Blood tm6 collected. Flushed with 10 mL NS. 16:39 Basic Metabolic Panel Sent. tm6 16:39 CBC with Diff Sent. tm6 16:39 LFT's Sent. tm6 16:39 Magnesium Sent. tm6 16:39 NT PRO-BNP Sent. tm6 16:39 PT-INR Sent. tm6 16:39 Troponin HS Sent. tm6 16:45 EKG done, by ED staff, reviewed by Mihai DONATO. tm6 17:13 Deya Thomas, RN is Primary Nurse. ph 17:35 Lab(s) recollected, by me, sent to lab. ph 17:38 Patient has correct armband on for positive identification. Placed in gown. Bed in low ph position. Call light in reach. Side rails up X2. Client placed on continuous cardiac and pulse oximetry monitoring. NIBP monitoring applied. monitoring tech on. Door closed. Noise minimized. Warm blanket given. 18:30 CT Abd/Pelvis - Without Contrast In Process Unspecified. EDMS 20:11 Urinalysis w/ reflexes Sent. kj2 20:26 Trini Childers MD is Attending Physician. cp 20:33 initiated transfer with Will \T\ [facility]. kmf 20:43 Blood Culture Adult (2) Sent. kj2 20:43 Lactate w/ 2H reflex if indic. Sent. kj2 21:53 Provided Education on: NEED FOR TRANSFER. bm8 21:53 No provider procedures requiring assistance completed. Patient transferred, IV remains bm8 in place. 12/09 05:16 pt was accepted to [address] bed 1047, AOC given by leah louis \T\ 2052. Accepting Dr. angel luis Dinh \T\2052. number for nurse to nurse report [phone] [facility] to transfer pt. Administered Medications: 12/08 17:35 Drug: morphine IVP or IV 4 mg IVP once over 4 mins Route: IVP; Infused Over: 4 mins; ph Site: left antecubital; 17:55 Follow up: Response: No adverse reaction; Pain is decreased; RASS: Alert and Calm (0) ph 17:35 Drug: Ondansetron IVP 4 mg IVP once; over 2 minutes Route: IVP; Site: left antecubital; ph 17:55 Follow up: Response: No adverse reaction ph 20:46 Drug: Rocephin IV 1 grams IV at calculated rate once; Given slow IV push per pharmacy kj2 instructions Route: IV; Rate: calculated rate; Site: left antecubital; 21:54 Follow up: Response: No adverse reaction; IV Status: Completed infusion bm8 Medication: 17:38 VIS not applicable for this client. ph Outcome: 20:25 ER care complete, transfer ordered by MD. house 21:53 Transferred by ground EMS to [facility], Transfer form bm8 completed. X-rays sent w/ patient. 21:53 Condition: stable 21:53 Instructed on the need for transfer, Demonstrated understanding of instructions, follow-up care, 21:55 Patient left the ED. bm8 Signatures: Dispatcher [employer] EDDeya Moffett RN RN Mihai Galeano PA PA Maite Baker mg5 [facility] Chad[facility] Manish Beauchamp RN RN tm6 Rafael Palm RN RN bm8 Aye Zhu RN RN kj2 Corrections: (The following items were deleted from the chart) 12/09 05:15 04:49 initiated transfer with Will \T\ [facility]. [facility]
--- NOTE | 2023-12-09 20:26 | EDPHYS ---
Physician Documentation [facility] Name: Mc Willingham Age: 68 yrs Sex: Male : 1955 Arrival Date: 12/09/2023 Time: 13:17 Bed 8 Private MD: ED Physician Trini Childers HPI: 12/08 13:50 This 68 yrs old Male presents to ER via Ambulatory with complaints of cp Abdominal Pain. 13:50 The patient presents with abdominal pain that is diffuse, abdominal distention that is cp diffuse. Onset: The symptoms/episode began/occurred gradually. Associated signs and symptoms: Pertinent positives: shortness of breath, Pertinent negatives: blood in stools, constipation, diarrhea, fever. The symptoms are described as constant. 13:50 Patient reports PMHX significant for cirrhosis with ascites. Reports last paracentesis cp was about 1 month ago by physician in [place]. Historical: - Allergies: 13:42 No Known Allergies; tm6 - PMHx: 13:42 cirrhosis of liver; Hypertensive disorder; tm6 - PSHx: 13:42 None; tm6 - Immunization history:: Client reports having NOT received the Covid vaccine. - Infectious Disease History:: Denies. - Social history:: Smoking status: Patient denies any tobacco usage or history of. Patient/guardian denies using alcohol. ROS: 13:55 Constitutional: Negative for body aches, chills, fever, poor PO intake, cp 13:55 Eyes: Negative for injury, pain, redness, and discharge, cp 13:55 ENT: Negative for drainage from ear(s), ear pain, sore throat, difficulty swallowing, difficulty handling secretions, 13:55 Cardiovascular: Negative for chest pain, palpitations, 13:55 Respiratory: Positive for shortness of breath, Negative for cough, wheezing, 13:55 Abdomen/GI: Positive for abdominal pain, abdominal distension, Negative for vomiting, diarrhea, constipation, black/tarry stool, rectal bleeding, 13:55 Neuro: Negative for altered mental status, dizziness, headache, weakness, 13:55 All other systems are negative, Exam: 14:00 Constitutional: The patient appears in no acute distress, alert, awake, cp non-diaphoretic, non-toxic, well developed, well nourished, uncomfortable, 14:00 Head/Face: Normocephalic, atraumatic. cp 14:00 Eyes: Periorbital structures: appear normal, Conjunctiva: normal, no exudate, no injection, Sclera: no appreciated abnormality, Lids and lashes: appear normal, bilaterally, 14:00 ENT: External ear(s): are unremarkable, Nose: is normal, Mouth: Lips: moist, Oral mucosa: pink and intact, moist, Posterior pharynx: Airway: no evidence of obstruction, patent, 14:00 Chest/axilla: Inspection: normal, 14:00 Cardiovascular: Rate: normal, Rhythm: regular, JVD: is not appreciated, 14:00 Respiratory: the patient does not display signs of respiratory distress, Respirations: labored breathing, that is mild, Breath sounds: are clear throughout, no decreased breath sounds, no stridor, no wheezing, 14:00 Abdomen/GI: Inspection: distension, that is severe, Bowel sounds: active, all quadrants, Palpation: soft, in all quadrants, moderate abdominal tenderness, in all quadrants, 14:00 Back: pain, is absent, ROM is normal, 14:00 Neuro: Orientation: to person, place \T\ time. Mentation: is normal, Motor: moves all fours, no focal deficits, 16:48 ECG was reviewed by the Attending Physician. cp Vital Signs: 13:41 BP 138 / 90; Pulse 79; Resp 20; Temp 98.6(O); Pulse Ox 99% on R/A; MAP 105 mmHg; Weight tm6 80.74 kg; Height 5 ft. 8 in. ; Pain 9/10; 17:25 BP 174 / 96; Pulse 69; Resp 18; Pulse Ox 98% on R/A; ph 17:36 BP 157 / 88; Pulse 68; Resp 18; Pulse Ox 99% on R/A; ph 18:53 BP 146 / 88; Pulse 78; Resp 18; Pulse Ox 100% on R/A; ph 20:08 BP 143 / 96; Pulse 71; Resp 20; Pulse Ox 100% on R/A; kj2 20:47 BP 162 / 85; Pulse 69; Resp 20; Pulse Ox 100% on R/A; kj2 21:53 BP 137 / 84; Pulse 87; Resp 20; Temp 98.6; Pulse Ox 100% on R/A; Pain 0/10; bm8 13:41 Body Mass Index 27.06 (80.74 kg, 172.72 cm) tm6 13:41 Pain Scale: Adult tm6 21:53 Pain Scale: Adult bm8 Seth [place]a Score: 21:53 Eye Response: spontaneous(4). Motor Response: obeys commands(6). Verbal Response: bm8 oriented(5). Total: 15. MDM: 13:45 Patient medically screened. cp 20:30 Data reviewed: vital signs, nurses notes, lab test result(s), EKG, radiologic studies, cp CT scan, and as a result, I will transfer patient due to no available beds. 20:30 Differential diagnosis: pancreatitis, Ureterolithiasis, urinary tract infection, cp sepsis. I considered the following discharge prescriptions or medication management in the emergency department Medications were administered in the Emergency Department. See MAR. Independent interpretation of the following test(s) in the Emergency Department EKG: See my EKG interpretation above. Care significantly affected by the following chronic conditions: Liver Disease. Counseling: I had a detailed discussion with the patient and/or guardian regarding the historical points, exam findings, and any diagnostic results supporting the discharge/admit diagnosis, lab results, radiology results, the need to transfer to another facility. 12/08 13:46 Order name: Basic Metabolic Panel; Complete Time: 17:57 cp 12/08 17:57 Interpretation: Normal except: CL 109; GLUC 114; BUN 37; CRE 1.96; GFR 37; CA 8.1. cp 12/08 13:46 Order name: CBC with Diff; Complete Time: 16:50 cp 12/08 13:46 Order name: LFT's; Complete Time: 17:57 cp 12/08 13:46 Order name: Magnesium; Complete Time: 17:57 cp 12/08 13:46 Order name: NT PRO-BNP; Complete Time: 17:57 cp 12/08 13:46 Order name: PT-INR; Complete Time: 17:57 cp 12/08 13:46 Order name: Troponin HS; Complete Time: 17:57 cp 12/08 13:46 Order name: Lipase; Complete Time: 17:57 cp 12/08 17:58 Order name: Urinalysis w/ reflexes; Complete Time: 20:47 cp 12/08 20:17 Order name: Lactate w/ 2H reflex if indic. cp 12/08 20:17 Order name: Blood Culture Adult (2) 12/08 13:46 Order name: XRAY Chest (1 view); Complete Time: 17:57 12/08 17:58 Order name: CT Abd/Pelvis - Without Contrast; Complete Time: 19:51 12/08 19:51 Interpretation: Report reviewed. 12/08 13:46 Order name: EKG; Complete Time: 13:46 12/08 13:46 Order name: Cardiac monitoring; Complete Time: 17:35 12/08 13:46 Order name: EKG - Nurse/Tech; Complete Time: 16:45 12/08 13:46 Order name: IV Saline Lock; Complete Time: 16:39 12/08 13:46 Order name: Labs collected and sent; Complete Time: 16:39 12/08 13:46 Order name: O2 Per Protocol; Complete Time: 17:14 12/08 13:46 Order name: O2 Sat Monitoring; Complete Time: 17:14 12/08 16:51 Order name: Labs - recollect needed: recollect green and blue top; Complete Time: 17:26 bd EC:48 Rate is 73 beats/min. Rhythm is regular. IN interval is normal. QRS interval is normal. cp QT interval is normal. T waves are Peaked in leads I, V2. T waves are Inverted in leads III, aVR. Interpreted by me. Reviewed by me. Administered Medications: 17:35 Drug: morphine IVP or IV 4 mg IVP once over 4 mins Route: IVP; Infused Over: 4 mins; ph Site: left antecubital; 17:55 Follow up: Response: No adverse reaction; Pain is decreased; RASS: Alert and Calm (0) ph 17:35 Drug: Ondansetron IVP 4 mg IVP once; over 2 minutes Route: IVP; Site: left antecubital; ph 17:55 Follow up: Response: No adverse reaction ph 20:46 Drug: Rocephin IV 1 grams IV at calculated rate once; Given slow IV push per pharmacy kj2 instructions Route: IV; Rate: calculated rate; Site: left antecubital; 21:54 Follow up: Response: No adverse reaction; IV Status: Completed infusion bm8 Disposition Summary: 12/09/23 20:25 Transfer Ordered Notes: Transfer Location: [facility] cp Reason: Higher level of care cp Condition: Stable cp Problem: an ongoing problem cp Symptoms: have improved cp Accepting Physician: DR Moore(12/09/23 21:55) bm8 Diagnosis - Alcoholic cirrhosis of liver with ascites cp Forms: - Medication Reconciliation Form cp - SBAR form cp Signatures: Dispatcher [employer] EDMS Melissa Rodriguez Patricia RN RN Mihai Gore PA PA cp Manish Beauchamp RN RN tm6 Rafael Palm RN RN bm8 Aye Zhu RN RN kj2 Corrections: (The following items were deleted from the chart) 17:59 17:59 Urinalysis+U.LAB.BRZ ordered. EDNM EDMS 20:52 20:25 Doctor cp cp 21:55 20:52 DR Moore cp bm8
[2023-12-09] MEDS ORDERED: CEFTRIAXONE 1000 MG/VIAL ONE (20:43)
[2023-12-10 05:15] VITALS: TEMP 98.6
[2023-12-10 05:20] VITALS: O2SAT 100
[2023-12-10 05:25] VITALS: BP 137/84
--- NOTE | 2023-12-10 12:57 | EKG ---
Test Date: 2023-12-09 Test Time: 16:44:59 Pad Tufter: JES MEASUREMENT RESULTS: Intervals: Rate: 73 UT: 186 QRSD: 86 QT: 406 QTc: 447 [place]: P: 6 UT: 186 QRS: -12 T: -2 INTERPRETIVE STATEMENTS: Normal sinus rhythm Normal ECG Compared to ECG 10/10/2021 17:10:38 No significant changes Electronically Signed On 12-10-23 12:54:27 CDT by Johnathan Diza
== END 2023-12-09 21:55 | disposition short-term general hospital (02) ==
LOC: ER 13:17
DX: K70.31 Alcoholic cirrhosis of liver with ascites (principal)
CPT/HCPCS: 36415; 71045; 74176; 80048; 80076; 81001; 83605; 83690; 83735; 83880; 84484; 85025; 85610; 87040; 93005; 96365; 96375; 99285; J0696; J2405

== ENCOUNTER 2024-05-28 13:18 | Emergency (ER) | payer SELFPAY ==
[2024-05-28 14:04] LABS: Absolute Eosinophils 0.2 K/uL (0-0.5); Absolute Lymphocytes (CBC) 0.6 K/uL (0.7-4.9); Absolute Monocytes 0.4 K/uL (0.1-1.3); Absolute Neutrophil 3.7 K/uL (1.8-8.0); Basophils % 0.9 % (0-1.3); Eosinophils % 4.8 % (0-4.4); Hematocrit 35.2 % (39.6-49.0); Hemoglobin 11.7 g/dL (13.6-17.9); Lymphocytes % 11.4 % (15.3-44.8); MCH 27.2 pg (27.0-35.0); MCHC 33.3 g/dL (32.0-36.0); MCV 81.7 fL (80-100); MPV 7.2 fL (7.6-11.3); Monocytes % 8.8 % (3.3-12.3); Neutrophils % 74.1 % (41.7-73.7); Nucleated Red Blood Cells % 0.1 % (0-0); Platelets 184 thou/uL (152-406); RBC Red Blood Cell Count 4.31 M/uL (4.33-5.43); Red Cell Distribution Width 19.5 % (12.1-15.2)
[2024-05-28 14:23] LABS: Albumin 2.7 g/dL (3.4-5.0); Albumin/Globulin Ratio 0.6 (1.1-1.8); Alkaline Phosphatase 84 U/L (45-117); Anion Gap 7.7 mEq/L (5.0-15.0); BUN Blood Urea Nitrogen 48 mg/dL (7-18); Bicarbonate 31 mEq/L (21-32); Bilirubin Total 0.8 mg/dL (0.2-1.0); Globulin 4.6 g/dL (2.3-3.5); Glomerular Filtration Rate 33 ml/min (=/>90); Glucose Level 152 mg/dL (74-106); Lipase 21 U/L (13-75); Potassium 2.7 mEq/L (3.5-5.1); Protein, Total 7.3 g/dL (6.4-8.2); Sodium Level 138 mEq/L (136-145)
[2024-05-28 14:28] LABS: ALT/SGPT < 14 U/L (16-61); AST/SGOT < 10 U/L (15-37)
[2024-05-28] MEDS ORDERED: KCL 20 MEQ/100 mL IVPB 100 ML IV ONE (15:13)
[2024-05-28] MEDS ORDERED: NA CHLORIDE 0.9% 250 ML ONE (15:14)
--- NOTE | 2024-05-28 16:56 | ER ---
Nurse's Notes [facility] Name: Mc Willingham Age: 69 yrs Sex: Male : 1955 Arrival Date: 05/28/2024 Time: 13:18 Bed 13 Private MD: Diagnosis: Alcoholic cirrhosis of liver with ascites;Hypokalemia;Chronic kidney disease, stage 4 (severe) Presentation: 05/28 13:43 Chief complaint: Friend and/or Co-Worker states: he's bloated with fluid, is supposed iw to see his doctor Friday but cannot wait , last paracentesis was a month and half ago. Coronavirus screen: At this time, the client does not indicate any symptoms associated with coronavirus-19. Ebola Screen: No symptoms or risks identified at this time. Risk Assessment: Do you want to hurt yourself or someone else? Patient reports no desire to harm self or others. 13:43 Method Of Arrival: Ambulatory iw 13:43 Acuity: POPPY 3 iw 13:46 Initial Sepsis Screen: Does the patient meet any 2 criteria? No. Patient's initial iw sepsis screen is negative. Does the patient have a suspected source of infection? No. Patient's initial sepsis screen is negative. Onset of symptoms was May 28, 2024. Historical: - Allergies: 13:46 No Known Allergies; iw - PMHx: 13:46 cirrhosis of liver; Hypertensive disorder; iw - Immunization history:: Adult Immunizations unknown. - Infectious Disease History:: Denies. - Social history:: Smoking status: Patient denies any tobacco usage or history of. Screenin:02 [facility] ED Fall Risk Assessment (Adult) History of falling in the last 3 months, me1 including since admission No falls in past 3 months (0 pts) Confusion or Disorientation No (0 pts) Intoxicated or Sedated No (0 pts) Impaired Gait No (0 pts) Mobility Assist Device Used No (0 pt) Altered Elimination No (0 pt) Score/Fall Risk Level 0 - 2 = Low Risk Maintained a safe environment, Provided non-skid footwear, Hourly rounding (assess needs \T\ fall precautionary measures) done. Abuse screen: Denies threats or abuse. Nutritional screening: No deficits noted. Tuberculosis screening: No symptoms or risk factors identified. Assessment: 15:01 General: Appears in no apparent distress. Behavior is calm, cooperative, appropriate me1 for age, Reports he's bloated with fluid, is supposed to see his doctor Friday but cannot wait , last paracentesis was a month and half ago. Pain: Complains of pain in abdomen Pain does not radiate. Pain currently is 8 out of 10 on a pain scale. Quality of pain is described as pressure, Pain began gradually, Is continuous. 15:02 Neuro: Level of Consciousness is awake, alert, obeys commands, Oriented to person, me1 place, time, situation, Appropriate for age. Cardiovascular: Patient's skin is warm and dry. Respiratory: Airway is patent Respiratory effort is even, unlabored, Respiratory pattern is regular, symmetrical. GI: Abdomen is round Bowel sounds present X 4 quads. Abdomen is tender to palpation X 4 quads. : No signs and/or symptoms were reported regarding the genitourinary system. EENT: No signs and/or symptoms were reported regarding the EENT system. Derm: Skin is intact, is healthy with good turgor, Skin is pink, warm \T\ dry. Musculoskeletal: No signs and/or symptoms reported regarding the musculoskeletal system. Vital Signs: 13:46 BP 114 / 83; Pulse 66; Resp 19; Temp 98.2; Pulse Ox 95% on R/A; Weight 79.38 kg; Height iw 5 ft. 8 in. ; 14:00 BP 146 / 93; Pulse 67; Resp 18; Pulse Ox 99% ; me1 15:00 BP 146 / 93; Pulse 67; Resp 18; Pulse Ox 99% ; me1 16:00 BP 134 / 87; Pulse 61; Resp 15; Pulse Ox 98% ; me1 17:00 BP 158 / 89; Pulse 61; Resp 18; Pulse Ox 99% ; me1 18:00 BP 124 / 77; Pulse 60; Resp 17; Pulse Ox 98% ; hb 19:00 BP 142 / 81; Pulse 62; Resp 17; Pulse Ox 97% ; hb 20:00 BP 150 / 81; Pulse 60; Resp 16; Pulse Ox 98% ; hb 21:00 BP 133 / 65; Pulse 61; Resp 18; Pulse Ox 98% ; hb 13:46 Body Mass Index 26.61 (79.38 kg, 172.72 cm) iw ED Course: 13:21 Patient arrived in ED. mr 13:32 Dasha Harris MD is Attending Physician. gb1 13:44 Triage completed. iw 13:47 Arm band placed on. iw 13:54 Initial lab(s) drawn, by me, sent to lab. Inserted saline lock: 20 gauge in right iw wrist, using aseptic technique. Blood collected. Flushed with 10 mL NS. 14:59 Geeta Mccracken, RN is Primary Nurse. me1 15:02 Patient has correct armband on for positive identification. Bed in low position. Call me1 light in reach. Side rails up X2. Provided Education on: POC. Verbalized understanding.. Client placed on continuous cardiac and pulse oximetry monitoring. NIBP monitoring applied. Pulse ox on. NIBP on. 15:02 No provider procedures requiring assistance completed. me1 16:55 James Ordoñez is Hospitalizing Provider. gb1 17:24 PT-INR Sent. me1 18:35 TC CALLED TO INITIATE TRANSFER, SPOKE WITH AZAM. ty 19:37 Magnesium Sent. hb 19:52 CXR XRAY In Process Unspecified. EDMS 20:[address] [facility]. Dr Negron, J \T\ 192. Accepting admin Ezra P \T\2030. Pt will km f go to room 740. Number for nurse to nurse report [phone]. [facility] to transfer pt. 21:08 Patient transferred, IV remains in place. me1 Administered Medications: 15:24 Drug: Potassium Chloride IV 20 mEq IV at bolus once; administer over 1-2 hours Route: me1 IV; Rate: bolus; Site: right wrist; 17:24 Follow up: Response: No adverse reaction; IV Status: Completed infusion me1 18:33 Drug: Rocephin IV 1 grams IV at bolus once; Given slow IV push per pharmacy hb instructions Route: IV; Rate: bolus; Site: right wrist; 18:36 Follow up: Response: No adverse reaction; IV Status: Completed infusion hb 19:34 Drug: Potassium Chloride PO 40 mEq PO once Route: PO; hb 21:01 Follow up: Response: No adverse reaction hb Medication: 15:02 VIS not applicable for this client. me1 Outcome: 16:56 Decision to Hospitalize by Provider. gb1 18:52 ER care complete, transfer ordered by . gb1 21:08 [place]red by [place] [facility]: service unit operator. Report me1 given to ALISSON Delong 21:08 Condition: stable 21:08 Instructed on the need for transfer, 21:41 Patient left the ED. Signatures: Dispatcher [employer] EDNoelle Ruelas, Reg Reg mr ChandraJazmín, ALISSON VINSON Maddy He RN RN Geeta Mccracken RN RN me1 Dasha Harris MD MD 1 [facility] Rui Murillo Corrections: (The following items were deleted from the chart) 15:01 13:43 Chief complaint: Friend and/or Co-Worker states: he's bloated with fluid, is me1 supposed to see his doctor Friday but cannot wait , last paracentesis was a month and half ago iw 15:03 15:01 Pain: Complains of pain in abdomen Pain does not radiate. Pain me1 me1 15:28 15:01 Pain: Complains of pain in abdomen Pain does not radiate. Pain currently is 6 out me1 of 10 on a pain scale. Quality of pain is described as pressure, Pain began gradually, Is continuous, me1 18:37 18:35 TC CALLED TO INITIATE TRANSFER, SPOKE WITH ty ty
--- NOTE | 2024-05-28 16:56 | EDPHYS ---
Physician Documentation [facility] Name: Mc Willingham Age: 69 yrs Sex: Male : 1955 Arrival Date: 05/28/2024 Time: 13:18 Bed 13 Private MD: ED Physician Dasha Harris HPI: 05/28 18:46 This 69 yrs old Male presents to ER via Ambulatory with complaints of gb1 Abdominal Swelling. 18:46 69-year-old male with abdominal pain. He has a history of alcoholic cirrhosis and gb1 hypertension. His last paracentesis was about a month and a half ago. He denies fever or chills but does state that his abdomen feels tight and he is a little bit more short of breath than normal. He denies any blood in his stool or any vomiting. He denies any chest pain. He was sent here by Dr. Han who is part of his liver team.. Historical: - Allergies: 13:46 No Known Allergies; iw - PMHx: 13:46 cirrhosis of liver; Hypertensive disorder; iw - Immunization history:: Adult Immunizations unknown. - Infectious Disease History:: Denies. - Social history:: Smoking status: Patient denies any tobacco usage or history of. Exam: 18:46 Constitutional: This is a well developed, well nourished patient who is awake, alert, gb1 and in no acute distress. Head/Face: Normocephalic, atraumatic. Eyes: Pupils equal round and reactive to light, extra-ocular motions intact. Lids and lashes normal. Conjunctiva and sclera are non-icteric and not injected. Cornea within normal limits. Periorbital areas with no swelling, redness, or edema. ENT: Nares patent. No nasal discharge, no septal abnormalities noted. Tympanic membranes are normal and external auditory canals are clear. Oropharynx with no redness, swelling, or masses, exudates, or evidence of obstruction, uvula midline. Mucous membranes moist. Neck: Trachea midline, no thyromegaly or masses palpated, and no cervical lymphadenopathy. Supple, full range of motion without nuchal rigidity, or vertebral point tenderness. No Meningismus. Chest/axilla: Normal chest wall appearance and motion. Nontender with no deformity. No lesions are appreciated. Cardiovascular: Regular rate and rhythm with a normal S1 and S2. No gallops, murmurs, or rubs. Normal PMI, no JVD. No pulse deficits. Respiratory: Lungs have equal breath sounds bilaterally, clear to auscultation and percussion. No rales, rhonchi or wheezes noted. No increased work of breathing, no retractions or nasal flaring. Abdomen/GI: Distended abdomen with tense abdominal ascites, mild distention with tympany and an ascitic fluid wave. Diffusely tender. Patient also has an under local hernia that is present on exam. Back: No spinal tenderness. No costovertebral tenderness. Full range of motion. Skin: Warm, dry with normal turgor. Normal color with no rashes, no lesions, and no evidence of cellulitis. MS/ Extremity: Pulses equal, no cyanosis. Neurovascular intact. Full, normal range of motion. Vital Signs: 13:46 BP 114 / 83; Pulse 66; Resp 19; Temp 98.2; Pulse Ox 95% on R/A; Weight 79.38 kg; Height iw 5 ft. 8 in. ; 14:00 BP 146 / 93; Pulse 67; Resp 18; Pulse Ox 99% ; me1 15:00 BP 146 / 93; Pulse 67; Resp 18; Pulse Ox 99% ; me1 16:00 BP 134 / 87; Pulse 61; Resp 15; Pulse Ox 98% ; me1 17:00 BP 158 / 89; Pulse 61; Resp 18; Pulse Ox 99% ; me1 18:00 BP 124 / 77; Pulse 60; Resp 17; Pulse Ox 98% ; hb 19:00 BP 142 / 81; Pulse 62; Resp 17; Pulse Ox 97% ; hb 20:00 BP 150 / 81; Pulse 60; Resp 16; Pulse Ox 98% ; hb 21:00 BP 133 / 65; Pulse 61; Resp 18; Pulse Ox 98% ; hb 13:46 Body Mass Index 26.61 (79.38 kg, 172.72 cm) iw MDM: 13:50 Medical Screening Exam initiated gb1 18:46 Data reviewed: vital signs, nurses notes, lab test result(s), CBC, electrolytes, gb1 hepatic panel. 18:46 ED course: 69-year-old male with history of alcoholic cirrhosis with ascites concern gb1 for SBP requiring a paracentesis. He also has a potassium of 2.7 which is currently being repleted. Patient transferred for gastroenterology coverage and higher level of care. Also patient's unable to get a paracentesis here at this date and time. I have started IV Rocephin to cover for SBP as it is a third-generation cephalosporin which is recommended to be the standard of care. Patient is otherwise afebrile and with normal white blood cell count blood pressure is 124/77. Patient has a history of CKD as well and his creatinine is at baseline. He is not a dialysis patient.. 05/28 13:32 Order name: CBC with Diff; Complete Time: 14:44 05/28 13:32 Order name: CMP; Complete Time: 14:44 05/28 13:32 Order name: Lipase; Complete Time: 14:44 05/28 13:32 Order name: Urinalysis w/ reflexes 05/28 16:13 Order name: PT-INR; Complete Time: 18:06 05/28 19:20 Order name: Magnesium; Complete Time: 21:00 05/28 19:17 Order name: CXR XRAY; Complete Time: 21:00 05/28 13:32 Order name: IV Saline Lock; Complete Time: 15:05 05/28 13:32 Order name: Labs collected and sent; Complete Time: 15:05 Administered Medications: 15:24 Drug: Potassium Chloride IV 20 mEq IV at bolus once; administer over 1-2 hours Route: me1 IV; Rate: bolus; Site: right wrist; 17:24 Follow up: Response: No adverse reaction; IV Status: Completed infusion me1 18:33 Drug: Rocephin IV 1 grams IV at bolus once; Given slow IV push per pharmacy hb instructions Route: IV; Rate: bolus; Site: right wrist; 18:36 Follow up: Response: No adverse reaction; IV Status: Completed infusion hb 19:34 Drug: Potassium Chloride PO 40 mEq PO once Route: PO; hb 21:01 Follow up: Response: No adverse reaction hb Disposition Summary: 05/28/24 18:52 Transfer Ordered Notes: Transfer Location: [facility] gb1 Reason: Higher level of care gb1 Condition: Stable(05/28/24 18:52) gb1 Problem: chronic(05/28/24 18:52) gb1 Symptoms: have worsened(05/28/24 18:52) gb1 Accepting Physician: Dr.Jenny Negron(05/28/24 21:41) sahara Diagnosis - Alcoholic cirrhosis of liver with ascites(05/28/24 18:52) gb1 - Hypokalemia gb1 - Chronic kidney disease, stage 4 (severe) gb1 Forms: - Medication Reconciliation Form gb1 - SBAR form gb1 Signatures: Dispatcher [employer] EDJazmín Diehl RN RN Maddy He RN RN Geeta Mccracken RN RN me1 Dasha Harris MD MD gb1 Corrections: (The following items were deleted from the chart) 18:51 16:56 Inpatient Admission gb1 gb1 18:51 16:56 James Ordoñez gb1 gb1 18:51 16:56 Telemetry/MedSurg (Inpatient) gb1 gb1 18:51 16:56 Fair gb1 gb1 18:51 16:56 an ongoing problem gb1 gb1 18:51 16:56 have worsened gb1 gb1 18:51 16:56 Standard gb1 gb1 18:51 16:56 gb1 gb1 18:51 16:56 Alcoholic cirrhosis of liver with ascites gb1 gb1 19:20 18:52 Dr. payne gb1 21:41 19:20 Dr.Jenny Negron gb1
[2024-05-28 17:29] LABS: Protime INR 1.24
[2024-05-28] MEDS ORDERED: CEFTRIAXONE 1000 MG/VIAL ONE (18:25)
[2024-05-28 18:38] LABS: Specific Gravity 1.013 (1.005-1.030); Urine Bilirubin NEGATIVE (Negative); Urine Blood Negative (Negative); Urine Clarity Clear (Clear); Urine Color Light-Yellow (Yellow); Urine Glucose NEGATIVE (Negative); Urine Ketones NEGATIVE (Negative); Urine Microscopic Reflex YN NO UMIC; Urine Nitrite NEGATIVE (Negative); Urine Protein NEGATIVE (Negative); Urine Urobilinogen Normal (Normal)
[2024-05-28] MEDS ORDERED: POTASSIUM CL SA 10 MEQ TAB PO ONE (19:29)
--- NOTE | 2024-05-28 19:58 | RAD REPORT ---
EXAMINATION: ONE VIEW CHEST XR CLINICAL INDICATION: ABDOMINAL DISTENTION TECHNIQUE: Frontal chest projection is submitted. Examination is limited by patient positioning and t echnique. COMPARISON: 12/09/2023 FINDINGS: Underinflated and mildly emphysematous lung romo. The heart is upper limit of normal in size. No di splaced fractures identified. IMPRESSION: No acute intrathoracic abnormalities.
[2024-05-28 22:03] VITALS: TEMP 98.2
[2024-05-28 22:21] VITALS: O2SAT 98
[2024-05-28 22:22] VITALS: BP 133/65
== END 2024-05-28 21:41 | disposition short-term general hospital (02) ==
LOC: ER 13:18
DX: K70.31 Alcoholic cirrhosis of liver with ascites (principal); E87.6 Hypokalemia; I12.9 Hypertensive chronic kidney disease with stage 1 through stage 4 chronic kidney disease, or unspecified chronic kidney disease; N18.4 Chronic kidney disease, stage 4 (severe); Z99.2 Dependence on renal dialysis
CPT/HCPCS: 36415; 71045; 80053; 81003; 83690; 83735; 85025; 85610; 96365; 96366; 96375; 99285; J0696; J3480; J7050